=== PATIENT | male | born 1950 | race Caucasian/White ===

== ENCOUNTER 2019-08-11 18:58 | Observation (INO) ==
[2019-08-11 19:50] LABS: Basophils % 0.4 % (0.1-2.0); Eosinophils # 0.3 K/mm3 (0.0-0.4); Hematocrit 38.2 % (42.0-52.0); Hemoglobin 12.5 g/dL (14.1-18.0); Lymphocytes % 28.5 % (10-50); Mean Corpuscular HGB Conc 32.7 g/dL (31.8-35.4); Mean Corpuscular Volume 96.8 fl (80-94); Mean Platelet Volume 7.4 fl (7.4-10.4); Monocytes # 0.7 K/mm3 (0.1-1.0); Monocytes % 6.2 % (1.7-9.3); Neutrophils # 6.4 K/mm3 (1.8-7.8); Neutrophils % 61.9 % (37.0-80.0); Platelet Count 215 K/mm3 (142-424); Red Blood Count 3.95 M/mm3 (4.60-6.20); Red Cell Distribution Width 12.8 % (11.5-17.5); White Blood Count 10.4 K/mm3 (4.8-10.8)
[2019-08-11 20:04] LABS: Anion Gap 18.2 mEq/L (5-15); Blood Urea Nitrogen 43 mg/dL (7-18); C-Reactive Protein 0.2 mg/dL (0.0-0.9); Calcium 9.8 mg/dL (8.5-10.1); Carbon Dioxide 25 mmol/L (21.0-32.0); Chloride 102 mmol/L (98-107); Glucose 86 mg/dL (74-106); Sodium 141 mmol/L (136-145)
[2019-08-11 20:10] LABS: Bilirubin,Direct 0.1 mg/dL (0.0-0.2); Bilirubin,Indirect 0.1 mg/dL (0.0-0.9); Bilirubin,Total 0.2 mg/dL (0.2-1.0)
[2019-08-11 20:11] LABS: Albumin Level 4.4 gm/dL (3.4-5.0); Total Protein,Serum 8.4 gm/dL (6.4-8.2)
[2019-08-11 20:14] LABS: Erythrocyte Sedimentation Rate 43 mm/hr (0-20)
--- NOTE | 2019-08-11 20:42 | Emergency Department Note ---
ED Disposition Clinical Impression: MARGARET (acute kidney injury), HIV disease Heat exposure Qualifiers: Encounter type: initial encounter Qualified Code(s): T67.9XXA - Effect of heat and light, unspecified, initial encounter Disposition: Admitted as Observation Condition on Discharge: Good Referrals: Provider,Referral, [Primary Care Provider] - - Critical Care Critical Care Time: No Attestation: On 08/11/19, the high probability of a clinically significant, sudden or life threatening deterioration of the following system(s) required my full and direct attention, intervention and personal management. The time I documented below is in addition to time spent performing reported procedures but includes the following listed in this critical care notation. Medical Decision Making - Medical Records Medical records reviewed: Yes: I reviewed the patient's medical records. - [place] Inquiry Pt receiving controlled substance: No Vital Signs: 08/11/19 19:11 08/11/19 22:08 08/11/19 22:57 Temperature 97.6 F Temperature Source Oral Pulse Rate [Left Radial] 88 72 Pulse Rate [Orthostatic Lying Right Radial] 74 Pulse Rate [Orthostatic Sitting Right Radial] 76 Pulse Rate [Orthostatic Standing Right Radial] 83 Respiratory Rate 17 18 Blood Pressure [Orthostatic Lying Right Arm] 149/81 H Blood Pressure [Orthostatic Sitting Right Arm] 144/82 H Blood Pressure [Orthostatic Standing Right Arm] 157/87 H Blood Pressure [Right Arm] 91/62 L 132/75 Blood Pressure Mean [Right Arm] 71 94 Blood Pressure Source [Right Arm] Automatic Cuff Automatic Cuff Blood Pressure Position [Right Arm] Sitting Sitting 02 Sat by Pulse Oximetry 95 99 Oxygen Delivery Method Room Air Room Air - Lab Data Lab results reviewed: Yes: I reviewed the patient's lab results. Lab Results 08/11/19 19:37: WBC 10.4, RBC 3.95 L, Hgb 12.5 L, Hct 38.2 L, MCV 96.8 H, MCH 31.7 H, MCHC 32.7, RDW 12.8, Plt Count 215, MPV 7.4, Neut % (Auto) 61.9, Lymph % (Auto) 28.5, Angelina % (Auto) 6.2, Eos % (Auto) 3.0, Baso % (Auto) 0.4, Neut # (Auto) 6.4, Lymph # (Auto) 3.0, Angelina # (Auto) 0.7, Eos # (Auto) 0.3, Baso # (Auto) 0.0, ESR 43 H 08/11/19 19:37: Sodium 141, Potassium 4.2, Chloride 102, Carbon Dioxide 25, Anion Gap 18.2 H, BUN 43 H, Creatinine 3.82 H, Estimated Creat Clear 16, Estimated GFR 16 L*, Est GFR ( Amer) 19 L*, Glucose 86, Calcium 9.8, Troponin I < 0.02, C-Reactive Protein 0.2 08/11/19 19:37: Total Bilirubin 0.2, Direct Bilirubin 0.1, Indirect Bilirubin 0.1, AST 25, ALT 35, Alkaline Phosphatase 84, Total Protein 8.4 H, Albumin 4.4 Result diagrams: 08/11/19 19:37 08/11/19 19:37 Orders (Tests/Meds): ED MEDICATIONS Generic Name Dose Route Start Last Admin Trade Name Freq PRN Reason Stop Dose Admin Sodium Chloride 1,000 mls @ 999 mls/hr 08/11/19 20:45 08/11/19 20:44 Sod Chlor 0.9% 1000ml Bag IV 08/11/19 21:45 999 mls/hr .Q1H1M CARMEL Administration ORDERS Category Date Time Status CT head/brain wo con Stat Cat Scan 08/11/19 19:27 Taken UA [Urinalysis and Microscopic] Stat Lab 08/11/19 22:35 Ordered - CT Data CT Scan: Head Time Received: 20:[address] Reviewed: Yes: I have viewed the radiologist's interpretation Preliminary Findings: Abnormal (chronic changes ) - ECG Data Tracing #1 Normal Sinus Rhythm: Yes Ischemic changes: non-specific ST-T wave changes - Physician Consults Physician Consulted: sloan Reason -: Admission Dizzy HPI - General Chief Complaint: Dizziness Stated Complaint: Low Blood Pressure,dizzy Head Time Seen by Provider: 08/11/19 20:00 Mode of Arrival: Ambulatory Source of Information: Patient, Spouse, Medical Record Limitations: No Limitations Description of Symptoms (Recalled from ER Triage Doc. by RN): PT STATED HE HAS BEEN DIZZY AND WEAK ALL DAY AND WHEN HE TOOK HIS BLOOD PRESSURE AT HOME HIS MACHINE WAS READING SYSTOLIC NUMBERS IN THE 70S AND 80S AND HIS PULSE WAS READING IN THE 120S. PT STATED HE IS HIV POSITIVE. - History of Present Illness HPI Narrative: pt with hx of hiv and was in his baseline status and was out today and became over heated and felt dizzy but no loc or focal changes - pt with no speech or visual sx- he noted low bp at home and presented to ed - no chest pain or syncope -has hx of cri complaint: dizziness Onset (ago): day(s) Timing: gradual onset Description: lightheadedness History of similar episodes: No History of trauma: No Severity: moderate Associated symptoms: denies other symptoms - Related Data Home Medications Medication Instructions Recorded Confirmed Unobtainable 08/11/19 08/11/19 Allergies Allergy/AdvReac Type Severity Reaction Status Date / Time morphine Allergy Verified 08/11/19 20:35 INGREDIENT: NO KNOWN - NO Allergy Unknown Uncoded 11/18/17 15:26 KNOWN DRUG ALLERGY [facility] History - Hepatitis A Screen Drug use history?: No High risk sexual behaviors?: No History of sexually transmitted infection?: No Currently employed?: No Childcare worker?: No Do you have indoor plumbing?: Yes Do you have electricity?: Yes Attestation statement:: This patient has been screened for Hepatitis A risk factors. I have reviewed the patient's past medical history: Yes - Social History Educational Level: Completed High School Alcohol Intake: current Alcohol Intake Frequency:: a few times a week Occupational Status: retired ROS Obtained: Yes All systems reviewed & no additional complaints - Constitutional Constitutional: Denies fever(s) - Eyes Eyes: Denies change in vision - ENT Ears, Nose, Mouth, and Throat: Denies sore throat - Cardiovascular Cardiovascular: Denies chest pain - Respiratory Respiratory: No cough - Gastrointestinal Gastrointestingal: Denies: abdominal pain - Genitourinary Male Genitourinary: Denies hematuria - Musculoskeletal Musculoskeletal: Denies joint pain - Integumentary/Breasts Skin/Breast: Denies rash - Neurologic Neurologic: Reports as per HPI, Reports dizziness, Denies headache(s), Denies seizure-like activity Physical Exam - General General appearance: alert - Head Head exam: normocephalic - Eye Eye exam: Present: PERRL, EOMI. Absent: scleral icterus - ENT ENT exam: Present: mucous membranes dry - Neck Neck exam: Present: trachea midline - Respiratory Respiratory exam: Present: normal lung sounds bilaterally. Absent: respiratory distress - Cardiovascular Cardiovascular exam: Present: regular rate, systolic murmur, +S4 - Abdominal Exam Abdominal exam: Present: soft - Back Exam Back exam: Present: full ROM - Neurological Exam Neurological exam: Present: alert, oriented X3, CN II-XII intact - Psychiatric Psychiatric exam: Present: normal affect - Skin Skin exam: Absent: rash
[2019-08-11 23:27] LABS: Microscopic, Urine URINE MICROSCOPIC (MICROSCOPIC)
[2019-08-11 23:28] LABS: Appearance,Urine CLEAR (Clear); Bilirubin,Urine Negative (Negative); Blood, Urine Negative (Negative); Color,Urine YELLOW (Yellow); Glucose,Urine (UA) Negative (Negative); Ketones,Urine Negative (Negative); Leukocyte Esterase,Urine Negative (Negative); PH,Urine 5.5 (5.0-8.5); Protein,Urine TRACE (Negative); Specific Gravity, Urine >= 1.030 (1.005-1.030); Urobilinogen,Urine 0.2 EU/dl (0.2)
[2019-08-11 23:33] LABS: Bacteria,Urine Trace /lpf; Hyaline Casts,Urine Occasional #/lpf (0); Squamous Epithelial Cell,Urine Occasional #/hpf (0-5); WBC,Urine Occasional #/hpf (0-3)
[2019-08-12 06:21] LABS: Basophils % 0.4 % (0.1-2.0); Eosinophils # 0.3 K/mm3 (0.0-0.4); Eosinophils % 4.8 % (0.1-12.0); Hematocrit 33.3 % (42.0-52.0); Lymphocytes # 2.4 K/mm3 (0.7-4.5); Lymphocytes % 35.2 % (10-50); Mean Corpuscular HGB Conc 33.3 g/dL (31.8-35.4); Mean Corpuscular Volume 97.6 fl (80-94); Mean Platelet Volume 7.3 fl (7.4-10.4); Monocytes # 0.4 K/mm3 (0.1-1.0); Monocytes % 6.2 % (1.7-9.3); Neutrophils # 3.6 K/mm3 (1.8-7.8); Neutrophils % 53.5 % (37.0-80.0); Platelet Count 153 K/mm3 (142-424); Red Blood Count 3.41 M/mm3 (4.60-6.20); White Blood Count 6.7 K/mm3 (4.8-10.8)
[2019-08-12 07:05] LABS: Hemoglobin 11.2 g/dL (14.1-18.0)
[2019-08-12 07:06] LABS: Blood Urea Nitrogen 38 mg/dL (7-18); Carbon Dioxide 24 mmol/L (21.0-32.0); Chloride 107 mmol/L (98-107); Glucose 97 mg/dL (74-106); Sodium 141 mmol/L (136-145)
[2019-08-12 07:21] LABS: Calcium 8.6 mg/dL (8.5-10.1)
--- NOTE | 2019-08-12 07:42 | Pharmacy Consult Notes ---
[facility] Pharmacy VTE Monitoring - Patient Demographics Admission date: 08/12/19 Report Date: 08/12/19 Time: 07:41 Allergies/Adverse Reactions: Patient Allergies morphine Allergy (Verified 08/11/19 20:35) Height: 1.65 m Weight: 63.191 kg Patient Problems: Current Active Problems MARGARET (acute kidney injury) (Acute) Heat exposure (Acute) HIV disease (Acute) - VTE Risk Labs: VTE Related Lab Results Hgb 11.2 g/dL (14.1-18.0) L D 08/12/19 05:37 Hct 33.3 % (42.0-52.0) L 08/12/19 05:37 Plt Count 153 K/mm3 (142-424) D 08/12/19 05:37 BUN 38 mg/dL (7-18) H 08/12/19 05:37 Creatinine 2.96 mg/dL (0.70-1.30) H D 08/12/19 05:37 Estimated Creat Clear 21 mL/min (50-200) 08/12/19 05:37 Was VTE Risk Assessment Performed: Yes VTE Score: 3 VTE Risk Level: Low Risk Clinical Trial Participant: No - Prophylaxis VTE Prophylaxis Ordered?: Yes Types of VTE Prophylaxis: TEDS Knee High
--- NOTE | 2019-08-12 11:15 | H&P/Discharge Summary ---
General - General Admission date:: 08/12/19 Discharge date: 08/12/19 *Admission Date: 08/12/19 *Chief complaint: weakness, dizzy, headache *History of present illness: Mr. Rodriguez is a 69-year-old male with a history of HIV, stage III kidney disease, hypertension, diabetes, and hyperlipidemia. 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 He went inside and took his blood pressure and it was 68/48 therefore he was transported to the emergency room by his . His sed rate was elevated and his renal functions were increased. His magnesium was also slightly high. He was admitted and started on IV fluids. This a.m. he is feeling much better. He denies any headache or dizziness and his blood pressure has stabilized. He tolerated breakfast and was anxious to go home. He is unsure of his medications and states his will bring them up when she gets off work. [facility] History I have reviewed the patient's past medical history: Yes Medical History: Reports:: Diabetes Mellitus Type 2, Hyperlipidemia, Hypertension, Renal Disease, Renal Insufficiency Denies:: Cancer, Diabetes Mellitus Type 1, Internal Pacemaker, MRSA *Have you ever received a pneumonia vaccine?: Yes *Have you received a flu vaccine this season?: Yes (last flu season) Other Medical History: Reports: HIV Other Surgeries: Yes: Other (Hemorrhoidectomy). No: Pacemaker Amputation: No Fractures: No - *Social History Educational Level: Attended High School Smoking Status: Former smoker Tobacco Type: cigarettes # Packs/Day (cigarettes): 1 #Yrs smoked (if former smoker): 35 Alcohol Intake: current Alcohol Intake Frequency:: a few times a week Substance Use Type: marijuana Last Used Substance: days (ago) *Occupational Status:: retired *Travel in the last 8 weeks: None Family Hx:: Coronary Artery Disease, Diabetes, Hypertension, Stroke Review of Systems - Constitutional Reports weakness, Denies chills, Denies fever(s) - Eyes Denies blurry vision, Denies double vision - ENT Reports dizziness, Denies nasal congestion, Denies sore throat - *Cardiovascular Denies chest pain, Denies shortness of breath, Denies rapid, pounding, or irregular heartbeat - *Respiratory Denies cough, Denies shortness of breath - *Gastrointestinal Denies abdominal pain, Denies loose stools, Denies nausea, Denies vomiting - *Genitourinary Denies difficulty urinating, Denies painful urination - *Musculoskeletal Denies joint pain, Denies muscle weakness - *Neurologic Reports dizziness, Reports weakness, Denies headache(s), Denies seizure-like activity Exam Vital signs and Labs for Last 24 Hours: Temp Pulse Resp BP Pulse Ox 98.2 F 51 L 18 153/79 H 99 08/12/19 08:00 08/12/19 08:00 08/12/19 08:00 08/12/19 08:00 08/12/19 08:00 Laboratory Results - last 24 hr 08/11/19 19:37: WBC 10.4, RBC 3.95 L, Hgb 12.5 L, Hct 38.2 L, MCV 96.8 H, MCH 31.7 H, MCHC 32.7, RDW 12.8, Plt Count 215, MPV 7.4, Neut % (Auto) 61.9, Lymph % (Auto) 28.5, [place] % (Auto) 6.2, Eos % (Auto) 3.0, Baso % (Auto) 0.4, Neut # (Auto) 6.4, Lymph # (Auto) 3.0, [place] # (Auto) 0.7, Eos # (Auto) 0.3, Baso # (Auto) 0.0, ESR 43 H 08/11/19 19:37: Sodium 141, Potassium 4.2, Chloride 102, Carbon Dioxide 25, Anion Gap 18.2 H, BUN 43 H, Creatinine 3.82 H, Estimated Creat Clear 16, Estimated GFR 16 L*, Est GFR ( Amer) 19 L*, Glucose 86, Calcium 9.8, Troponin I < 0.02, C-Reactive Protein 0.2 08/11/19 19:37: Total Bilirubin 0.2, Direct Bilirubin 0.1, Indirect Bilirubin 0.1, AST 25, ALT 35, Alkaline Phosphatase 84, Total Protein 8.4 H, Albumin 4.4 08/11/19 23:00: Urine Color Yellow, Urine Appearance Clear, Urine pH 5.5, Ur Specific [place] >= 1.030, Urine Protein Trace, Urine Glucose (UA) Negative, Urine Ketones Negative, Urine Blood Negative, Urine Nitrate Negative, Urine Bilirubin Negative, Urine Urobilinogen 0.2, Ur Leukocyte Esterase Negative, Urine WBC Occasional, Ur Squamous Epith Cells Occasional, Urine Bacteria Trace, Hyaline Casts Occasional 08/12/19 02:25: Troponin I < 0.02 08/12/19 05:37: WBC 6.7 D, RBC 3.41 L, Hgb 11.2 L D, Hct 33.3 L, MCV 97.6 H, MCH 32.5 H, MCHC 33.3, RDW 13.0, Plt Count 153 D, MPV 7.3 L, Neut % (Auto) 53.5, Lymph % (Auto) 35.2, [place] % (Auto) 6.2, Eos % (Auto) 4.8, Baso % (Auto) 0.4, Neut # (Auto) 3.6, Lymph # (Auto) 2.4, [place] # (Auto) 0.4, Eos # (Auto) 0.3, Baso # (Auto) 0.0 08/12/19 05:37: Sodium 141, Potassium 4.0, Chloride 107, Carbon Dioxide 24, Anion Gap 14.0, BUN 38 H, Creatinine 2.96 H D, Estimated Creat Clear 21, Estima [place] GFR 21 L, Est GFR ( Amer) 26 L D, Glucose 97, Calcium 8.6 D, Troponin I < 0.02 08/12/19 05:37: Magnesium 2.3 H I & O for Last 24 hours: Intake & Output 08/09/19 08/10/19 08/11/19 08/12/19 11:59 11:59 11:59 11:59 Intake Total 1570 / 1570 Balance 1570 / 1570 Weight 139 lb 5 oz - Constitutional no acute distress - *Routine HEENT Exam Head: Present: normocephalic Eye: Present: EOMI, PERRL ENT: Present: mucous membranes moist - *Routine Neck Exam Present: supple. Absent: lymphadenopathy - *Routine Respiratory Exam Present: CTA bilaterally - *Routine Cardiovascular Exam Present: RRR - *Routine Abdominal Exam Present: soft, normoactive bowel sounds. Absent: tenderness - *Routine Extremities Exam Absent: cyanosis, clubbing, edema - *Routine Skin Exam Present: warm. Absent: rash - *Routine Neurological Exam Present: alert, oriented X3 - Detailed Eye Exam Eyelids: Left normal inspection Hospital Course Hospital Course: The patient's renal function improved with hydration and he began feeling much better. His dizziness and weakness resolved and he was able to tolerate a diet. He was stable to be discharged home. Results Labs on day of discharge: Labs from last 24 hours 08/12/19 08/12/19 08/12/19 05:37 05:37 05:37 WBC 6.7 D RBC 3.41 L Hgb 11.2 L D Hct 33.3 L MCV 97.6 H MCH 32.5 H MCHC 33.3 RDW 13.0 Plt Count 153 D MPV 7.3 L Neut % (Auto) 53.5 Lymph % (Auto) 35.2 [place] % (Auto) 6.2 Eos % (Auto) 4.8 Baso % (Auto) 0.4 Neut # (Auto) 3.6 Lymph # (Auto) 2.4 [place] # (Auto) 0.4 Eos # (Auto) 0.3 Baso # (Auto) 0.0 ESR Sodium 141 Potassium 4.0 Chloride 107 Carbon Dioxide 24 Anion Gap 14.0 BUN 38 H Creatinine 2.96 H D Estimated Creat Clear 21 Estimated GFR 21 L Est GFR ( Amer) 26 L D Glucose 97 Calcium 8.6 D Magnesium 2.3 H Total Bilirubin Direct Bilirubin Indirect Bilirubin AST ALT Alkaline Phosphatase Troponin I < 0.02 C-Reactive Protein Total Protein Albumin Urine Color Urine Appearance Urine pH Ur Specific [place] Urine Protein Urine Glucose (UA) Urine Ketones Urine Blood Urine Nitrate Urine Bilirubin Urine Urobilinogen Ur Leukocyte Esterase Urine WBC Ur Squamous Epith Cells Urine Bacteria Hyaline Casts 08/12/19 08/11/19 08/11/19 02:25 23:00 19:37 WBC RBC Hgb Hct MCV MCH MCHC RDW Plt Count MPV Neut % (Auto) Lymph % (Auto) [place] % (Auto) Eos % (Auto) Baso % (Auto) Neut # (Auto) Lymph # (Auto) [place] # (Auto) Eos # (Auto) Baso # (Auto) ESR Sodium Potassium Chloride Carbon Dioxide Anion Gap BUN Creatinine Estimated Creat Clear Estimated GFR Est GFR ( Amer) Glucose Calcium Magnesium Total Bilirubin 0.2 Direct Bilirubin 0.1 Indirect Bilirubin 0.1 AST 25 ALT 35 Alkaline Phosphatase 84 Troponin I < 0.02 C-Reactive Protein Total Protein 8.4 H Albumin 4.4 Urine Color Yellow Urine Appearance Clear Urine pH 5.5 Ur Specific [place] >= 1.030 Urine Protein Trace Urine Glucose (UA) Negative Urine Ketones Negative Urine Blood Negative Urine Nitrate Negative Urine Bilirubin Negative Urine Urobilinogen 0.2 Ur Leukocyte Esterase Negative Urine WBC Occasional Ur Squamous Epith Cells Occasional Urine Bacteria Trace Hyaline Casts Occasional 08/11/19 08/11/19 19:37 19:37 WBC 10.4 RBC 3.95 L Hgb 12.5 L Hct 38.2 L MCV 96.8 H MCH 31.7 H MCHC 32.7 RDW 12.8 Plt Count 215 MPV 7.4 Neut % (Auto) 61.9 Lymph % (Auto) 28.5 [place] % (Auto) 6.2 Eos % (Auto) 3.0 Baso % (Auto) 0.4 Neut # (Auto) 6.4 Lymph # (Auto) 3.0 [place] # (Auto) 0.7 Eos # (Auto) 0.3 Baso # (Auto) 0.0 ESR 43 H Sodium 141 Potassium 4.2 Chloride 102 Carbon Dioxide 25 Anion Gap 18.2 H BUN 43 H Creatinine 3.82 H Estimated Creat Clear 16 Estimated GFR 16 L* Est GFR ( Amer) 19 L* Glucose 86 Calcium 9.8 Magnesium Total Bilirubin Direct Bilirubin Indirect Bilirubin AST ALT Alkaline Phosphatase Troponin I < 0.02 C-Reactive Protein 0.2 Total Protein Albumin Urine Color Urine Appearance Urine pH Ur Specific [place] Urine Protein Urine Glucose (UA) Urine Ketones Urine Blood Urine Nitrate Urine Bilirubin Urine Urobilinogen Ur Leukocyte Esterase Urine WBC Ur Squamous Epith Cells Urine Bacteria Hyaline Casts DS: Diagnosis - Discharge Diagnosis (1) MARGARET (acute kidney injury) Status: Acute (2) Heat exposure Status: Acute (3) Hyperlipidemia Status: Chronic (4) Hypertension Status: Chronic (5) HIV disease Status: Chronic (6) Stage 3 chronic kidney disease Status: Chronic Discharge Plan - Patient Discharge Instructions ACTIVITY: Continue current activity DIET: renal Patient Instructions: DI for Kidney Failure - Follow up Plan Follow up with: Melanie Ambrocio MD [Staff Physician] - Unknown provider or service follow up:: 08/12/19 08:57 Dr. 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
--- NOTE | 2019-08-12 13:12 | Electrocardiograph Report ---
APPROVED REPORT Exam: Resting ECG HR:73 bpm ECG Measurements Heart Rate 73 AXES MI 170 P 76 QRSd 78 QRS 62 QT 372 T65 QTc 409 <Conclusion> Normal sinus rhythm Incomplete RBBB Otherwise Normal EKG Electronically signed by : Ajith Stahl, 08/12/2019 13:12:20
== END 2019-08-12 10:27 | disposition home or self-care (01) ==
LOC: 2ND 18:58 → ER 18:58 → 2ND 08-12 00:05
PROVIDERS: ADMIT Emergency Medicine; ATTEND Emergency Medicine
CPT/HCPCS: 36415; 70450; 71020; 71046; 80048; 80076; 81001; 83735; 84484; 85025; 85651; 86140; 93005; 96365; 96366; 99282; G0378

== ENCOUNTER 2019-10-19 22:22 | Observation (INO) ==
[2019-10-19 23:06] LABS: Basophils % 0.5 % (0.1-2.0); Eosinophils # 0.2 K/mm3 (0.0-0.4); Eosinophils % 2.4 % (0.1-12.0); Hematocrit 36.2 % (42.0-52.0); Lymphocytes # 1.5 K/mm3 (0.7-4.5); Lymphocytes % 20.2 % (10-50); Mean Corpuscular HGB Conc 33.1 g/dL (31.8-35.4); Mean Corpuscular Volume 98.9 fl (80-94); Monocytes # 0.4 K/mm3 (0.1-1.0); Monocytes % 5.7 % (1.7-9.3); Neutrophils # 5.4 K/mm3 (1.8-7.8); Neutrophils % 71.1 % (37.0-80.0); Platelet Count 157 K/mm3 (142-424); Red Blood Count 3.66 M/mm3 (4.60-6.20); Red Cell Distribution Width 12.6 % (11.5-17.5); White Blood Count 7.5 K/mm3 (4.8-10.8)
[2019-10-19 23:07] LABS: Anion Gap 12.1 mEq/L (5-15); Calcium 8.4 mg/dL (8.5-10.1)
--- NOTE | 2019-10-20 00:35 | Emergency Department Note ---
ED Disposition Clinical Impression: Stage 3 chronic kidney disease Chest pain Qualifiers: Chest pain type: unspecified Qualified Code(s): R07.9 - Chest pain, unspecified Syncope Qualifiers: Syncope type: unspecified Qualified Code(s): R55 - Syncope and collapse Disposition: Left Against Medical Advice Condition on Discharge: Good Instructions: DI for Chest Pain Additional Instructions: call pcp in am and recheck if needed Referrals: Provider,Referral, MD [Primary Care Provider] - - Critical Care Critical Care Time: No Attestation: On 10/19/19, the high probability of a clinically significant, sudden or life threatening deterioration of the following system(s) required my full and direct attention, intervention and personal management. The time I documented below is in addition to time spent performing reported procedures but includes the following listed in this critical care notation. Medical Decision Making - Medical Records Medical records reviewed: Yes: I reviewed the patient's medical records. - [place] Inquiry Pt receiving controlled substance: No Vital Signs: 10/19/19 22:23 Temperature 97.7 F Temperature Source Oral Pulse Rate [Right] 89 Respiratory Rate 16 Blood Pressure [Right Arm] 133/80 Blood Pressure Mean [Right Arm] 97 Blood Pressure Source [Right Arm] Automatic Cuff Blood Pressure Position [Right Arm] Supine 02 Sat by Pulse Oximetry 94 L Oxygen Delivery Method Room Air - Lab Data Lab results reviewed: Yes: I reviewed the patient's lab results. Lab Results 10/19/19 22:25: Troponin I < 0.02 10/19/19 22:25: WBC 7.5, RBC 3.66 L, Hgb 12.0 L, Hct 36.2 L, MCV 98.9 H, MCH 32.7 H, MCHC 33.1, RDW 12.6, Plt Count 157, MPV 8.0, Neut % (Auto) 71.1, Lymph % (Auto) 20.2, [place] % (Auto) 5.7, Eos % (Auto) 2.4, Baso % (Auto) 0.5, Neut # (Auto) 5.4, Lymph # (Auto) 1.5, [place] # (Auto) 0.4, Eos # (Auto) 0.2, Baso # (Auto) 0.0 10/19/19 22:25: Sodium 138, Potassium 4.1, Chloride 103, Carbon Dioxide 27, Anion Gap 12.1, BUN 22 H, Creatinine 2.05 H, Estimated Creat Clear 30, Estimated GFR 32 L, Est GFR ( Amer) 39 L, Glucose 129 H, Calcium 8.4 L Result diagrams: 10/19/19 22:25 10/19/19 22:25 Orders (Tests/Meds): ORDERS Category Date Time Status XR chest portable Stat Exams 10/19/19 22:57 Taken - Radiology Data #1 Image(s): Chest Image Reviewed: Yes I reviewed the patient's radiology image Preliminary Findings: Normal/NAD - ECG Data Tracing #1 Normal Sinus Rhythm: Yes Ischemic changes: non-specific ST-T wave changes Chest Pain HPI - General Chief Complaint: Chest Pain Stated Complaint: Chest Pain Time Seen by Provider: 10/20/19 00:00 Mode of Arrival: EMS Source of Information: Patient, EMS, Medical Record Limitations: No Limitations Description of Symptoms (Recalled from ER Triage Doc. by RN): Chest pain 1.5 hours ago 324 ASA and 1 Niro given by EMS - History of Present Illness HPI narrative: pt with acute episode of syncope with diaphoresis and nausea and Ant chest pain - no known ht disease - reported neg stress test at about 2 yr ago - MD complaint: chest pain indicative of cardiac Onset (ago): hour(s) Duration: now resolved Activity at onset: during rest Pain location: left chest Severity: moderate Quality: tightness Associated symptoms: nausea Risk Factors for CAD: Family Hx of CAD Treatments prior to or on arrival for Cardiac Chest Pain: aspirin - EM Score for Non-Stemi Age of Patient: 60-69 years old Heart Rate: 70-89 bpm Systolic Blood Pressure: 120-139 mmhg Serum Creatinine: 2.00-3.99 mg/dl CHF [place] Class: I-No CHF Other Risk Factors: None Non-Stemi Risk Score: 122 - Related Data Prior Cardiac Testing/Procedures: Stress Test Home Medications Medication Instructions Recorded Confirmed Abacavir Sulfate [Abacavir] 600 mg PO DAILY 10/19/19 10/19/19 Atorvastatin Calcium [Atorvastatin 20 mg PO HS 10/19/19 10/19/19 20mg Tab] Dolutegravir Sodium [Tivicay] 50 mg PO DAILY 10/19/19 10/19/19 Escitalopram Oxalate 20 mg PO DAILY 10/19/19 10/19/19 Lisinopril [Lisinopril 10mg Tab] 10 mg PO DAILY 10/19/19 10/19/19 Multivit-Min/FA/Lycopen/Lutein 1 each PO DAILY 10/19/19 10/19/19 [Men 50 Plus Multivitamin Tab] Nortriptyline HCl 25 mg PO HS 10/19/19 10/19/19 Tamsulosin HCl [Flomax 0.4mg 0.4 mg PO HS 10/19/19 10/19/19 capsule] buPROPion HCl [Bupropion Xl] 150 mg PO DAILY 10/19/19 10/19/19 lamiVUDine [Lamivudine] 150 mg PO DAILY 10/19/19 10/19/19 Allergies Allergy/AdvReac Type Severity Reaction Status Date / Time morphine Allergy Verified 08/11/19 20:35 [facility] History - Hepatitis A Screen Drug use history?: No High risk sexual behaviors?: No History of sexually transmitted infection?: No Currently employed?: No Childcare worker?: No Do you have indoor plumbing?: Yes Do you have electricity?: Yes Attestation statement:: This patient has been screened for Hepatitis A risk factors. I have reviewed the patient's past medical history: Yes Medical History: Reports:: Diabetes Mellitus Type 2, Hyperlipidemia, Hypertension, Renal Disease, Renal Insufficiency Denies:: Cancer, Diabetes Mellitus Type 1, Internal Pacemaker, MRSA Other Medical History: Reports: HIV Other Surgeries: Yes: Other (Hemorrhoidectomy). No: Pacemaker Amputation: No Fractures: No - Social History Smoking Status: Former smoker Tobacco Type: cigarettes # Packs/Day (cigarettes): 1 #Yrs smoked (if former smoker): 35 Alcohol Intake: current Alcohol Intake Frequency:: a few times a week Substance Use Type: marijuana Occupational Status: retired Family Hx:: Coronary Artery Disease, Diabetes, Hypertension, Stroke ROS Obtained: Yes All systems reviewed & no additional complaints - Constitutional Constitutional: Denies fever(s) - Eyes Eyes: Denies change in vision - ENT Ears, Nose, Mouth, and Throat: Denies sore throat - Cardiovascular Cardiovascular: Reports as per HPI, Reports chest pain, Denies dyspnea, Reports lightheadedness - Respiratory Respiratory: No cough - Gastrointestinal Gastrointestingal: Denies: abdominal pain - Genitourinary Female Genitourinary: Denies hematuria - Musculoskeletal Musculoskeletal: Denies joint pain, Denies joint swelling - Integumentary/Breasts Skin/Breast: Denies rash - Neurologic Neurologic: Denies focal weakness, Denies seizure-like activity Physical Exam - General General appearance: alert - Head Head exam: normocephalic - Eye Eye exam: Present: PERRL, EOMI. Absent: scleral icterus - ENT ENT exam: Present: mucous membranes dry - Neck Neck exam: Present: trachea midline - Respiratory Respiratory exam: Present: normal lung sounds bilaterally. Absent: respiratory distress - Cardiovascular Cardiovascular exam: Present: regular rate, systolic murmur. Absent: rubs, gallop - Abdominal Exam Abdominal exam: Present: soft - Extremities Exam Extremities exam: Present: full ROM - Neurological Exam Neurological exam: Present: alert, oriented X3, CN II-XII intact - Psychiatric Psychiatric exam: Present: normal affect - Skin Skin exam: Absent: rash
[2019-10-20 01:29] LABS: Albumin Level 3.8 gm/dL (3.4-5.0); Bilirubin,Direct 0.1 mg/dL (0.0-0.2); Bilirubin,Indirect 0.1 mg/dL (0.0-0.9); Bilirubin,Total 0.2 mg/dL (0.2-1.0); Total Protein,Serum 7.4 gm/dL (6.4-8.2)
--- NOTE | 2019-10-20 07:20 | Pharmacy Consult Notes ---
[facility] Pharmacy VTE Monitoring - Patient Demographics Admission date: 10/19/19 Report Date: 10/20/19 Time: 07:20 Allergies/Adverse Reactions: Patient Allergies morphine Allergy (Verified 08/11/19 20:35) Height: 1.65 m Weight: 60.073 kg Patient Problems: Current Active Problems Stage 3 chronic kidney disease (Chronic) Chest pain (Acute) Syncope (Acute) - VTE Risk Labs: VTE Related Lab Results Hgb 12.0 g/dL (14.1-18.0) L 10/19/19 22:25 Hct 36.2 % (42.0-52.0) L 10/19/19 22:25 Plt Count 157 K/mm3 (142-424) 10/19/19 22:25 BUN 22 mg/dL (7-18) H 10/19/19 22:25 Creatinine 2.05 mg/dL (0.70-1.30) H 10/19/19 22:25 Estimated Creat Clear 30 mL/min (50-200) 10/19/19 22:25 Was VTE Risk Assessment Performed: Yes VTE Score: 5 VTE Risk Level: Low Risk Clinical Trial Participant: No - Prophylaxis VTE Prophylaxis Ordered?: Yes Types of VTE Prophylaxis: TEDS Knee High
[2019-10-20 07:41] LABS: Basophils % 0.5 % (0.1-2.0); Eosinophils # 0.2 K/mm3 (0.0-0.4); Eosinophils % 3.5 % (0.1-12.0); Hematocrit 33.3 % (42.0-52.0); Hemoglobin 11.1 g/dL (14.1-18.0); Lymphocytes # 2.3 K/mm3 (0.7-4.5); Lymphocytes % 34.4 % (10-50); Mean Corpuscular HGB Conc 33.4 g/dL (31.8-35.4); Mean Corpuscular Volume 96.9 fl (80-94); Monocytes # 0.5 K/mm3 (0.1-1.0); Monocytes % 6.7 % (1.7-9.3); Neutrophils # 3.7 K/mm3 (1.8-7.8); Neutrophils % 54.9 % (37.0-80.0); Platelet Count 142 K/mm3 (142-424); Red Blood Count 3.44 M/mm3 (4.60-6.20); Red Cell Distribution Width 12.6 % (11.5-17.5); White Blood Count 6.8 K/mm3 (4.8-10.8)
[2019-10-20 07:47] LABS: Anion Gap 7.9 mEq/L (5-15); Calcium 8.4 mg/dL (8.5-10.1)
[2019-10-20 07:56] LABS: Chol/HDL Ratio 2.8 (1-3.5); Cholesterol 135 mg/dL (140-200); HDL Cholesterol 49 mg/dL (27-67); LDL Cholesterol 71 mg/dL (0-130); Triglycerides 73 mg/dL (30-200); VLDL Cholesterol 15 mg/dL (0-40)
--- NOTE | 2019-10-20 08:29 | History & Physical Report ---
*Admission Date: 10/19/19 <Michela Holland 10/20/19 08:35> *Chief complaint: Chest pain; near syncope <Michela Holland 10/20/19 08:35> *History of present illness: Mr. Rodriguez is a 69-year-old male with a history of HIV diagnosed 9 years ago, chronic kidney insufficiency, GERD, hypertension, hyperlipidemia and depression who presented to [facility] emergency room after experiencing a near syncopal episode at home while standing in his garage. He states he was d rinking a beer and smoking a cigarette when this occurred. He had been having intermittent chest discomfort lasting 3 to 4 minutes since his dinner and then experienced severe midsternal chest discomfort associated with nausea, shortness of breath, and diaphoresis. He states he nearly passed out. His son was there and caught him and kept him awake until the ambulance arrived. He did receive a nitroglycerin which relieved the chest discomfort. He denies having previous chest discomfort. He receives his medical care at [facility]. He did have a negative stress test 2 years ago. He was evaluated in the emergency room. Troponin I's have been negative x2. He was admitted with a cardiology consult. At the time of this exam patient is comfortable. He denies shortness of breath. He arrived in the room about 4 AM and has been awake. <Michela Holland 10/20/19 08:44> [facility] History Medical History: Reports:: Deep Vein Thrombosis (Has a filter in place), Depression, Gastroesophageal Reflux Disease(GERD), Hyperlipidemia, Hypertension, Renal Disease, Renal Insufficiency Denies:: Cancer, Coronary Artery Disease, Diabetes Mellitus Type 1, Diabetes Mellitus Type 2, Internal Pacemaker, MRSA <Michela Holland 10/20/19 08:35> *Have you ever received a pneumonia vaccine?: Yes <Michela Holland 10/20/19 08:35> *Have you received a flu vaccine this season?: Yes <Michela Holland 10/20/19 08:35> Other Medical History: Reports: Arthritis, Acquired Immunodeficiency Syndrome (AIDS), HIV <Michela Holland 10/20/19 08:35> Other Surgeries: Yes: Colonoscopy, Other (Hemorrhoidectomy). No: Pacemaker <HollandMichela 10/20/19 08:35> Amputation: No <SkylerMichela Mckeon 10/20/19 08:35> Fractures: No <SkylerMichela 10/20/19 08:35> - *Social History Educational Level: Attended High School <HollandMichela Mckeon 10/20/19 08:35> Smoking Status: Former smoker <SkylerMichela 10/20/19 08:35> Tobacco Type: cigarettes <HollandMichela 10/20/19 08:35> # Packs/Day (cigarettes): 1 <SkylerMichela 10/20/19 08:35> #Yrs smoked (if former smoker): 15 <SkylerMichela 10/20/19 08:35> Smoking End Date: 35 YEARS AGO <Holland,Michela 10/20/19 08:35> Alcohol Intake: former <SkylerMichela 10/20/19 08:35> Alcohol Intake Frequency:: a few times a month <SkylerMichela 10/20/19 08:35> Substance Use Type: marijuana <Holland,Michela 10/20/19 08:35> Last Used Substance: days (ago) <HollandMichela 10/20/19 08:35> *Occupational Status:: retired <HollandMichela 10/20/19 08:35> Housing: house <SkylerMichela 10/20/19 08:35> Household Members: spouse, children <Holland,Michela 10/20/19 08:35> *Travel in the last 8 weeks: None <Holland,Michela Mckeon 10/20/19 08:35> Family Hx:: Diabetes, Stroke <Holland,Michela 10/20/19 08:35> Review of Systems - Constitutional Denies headache(s), Denies weakness <Michela Holland 10/20/19 08:35> - Eyes Denies change in vision <Michela Holland 10/20/19 08:35> - ENT Denies ear pain, Denies headache(s), Denies sore throat <Michela Holland 10/20/19 08:35> - *Cardiovascular Reports chest pain, Reports shortness of breath, Denies generalized swelling, Denies irregular heart rhythm <Michela Holland - 10/20/19 08:35> - *Respiratory Reports shortness of breath, Denies chest congestion, Denies cough <Michela Holland - 10/20/19 08:35> - *Gastrointestinal Reports heartburn, Reports heartburn, Reports nausea (When he had chest pain), Denies abdominal pain, Denies change in bowel habits, Denies coffee ground vomit, Denies constipation, Denies vomiting blood, Denies black, tarry stools, Denies vomiting <Michela Holland - 10/20/19 08:35> - *Genitourinary Denies difficulty urinating (Does take Flomax) <Michela Holland 10/20/19 08: 35> - *Musculoskeletal Denies abnormal walking, Denies joint pain <Michela Holland 10/20/19 08:35> - *Neurologic Denies abnormal walking, Denies seizure-like activity, Denies localized weakness, Denies seizure-like activity <Michela Holland 10/20/19 08:35> Meds Home Medications Medication Instructions Recorded Confirmed Type Abacavir Sulfate [Abacavir] 600 mg PO DAILY 10/19/19 10/19/19 History Atorvastatin Calcium [Atorvastatin 20 mg PO HS 10/19/19 10/19/19 History 20mg Tab] Dolutegravir Sodium [Tivicay] 50 mg PO DAILY 10/19/19 10/19/19 History Escitalopram Oxalate 20 mg PO DAILY 10/19/19 10/19/19 History Lisinopril [Lisinopril 10mg Tab] 10 mg PO DAILY 10/19/19 10/19/19 History Multivit-Min/FA/Lycopen/Lutein 1 each PO DAILY 10/19/19 10/19/19 History [Men 50 Plus Multivitamin Tab] Nortriptyline HCl 25 mg PO HS 10/19/19 10/19/19 History Tamsulosin HCl [Flomax 0.4mg 0.4 mg PO HS 10/19/19 10/19/19 History capsule] buPROPion HCl [Bupropion Xl] 150 mg PO DAILY 10/19/19 10/19/19 History lamiVUDine [Lamivudine] 150 mg PO DAILY 10/19/19 10/19/19 History <Paxton Ma - 10/20/19 09:28> Allergies Allergy/AdvReac Type Severity Reaction Status Date / Time morphine Allergy Verified 08/11/19 20:35 <Paxton Ma - 10/20/19 09:28> Exam Vital signs and Labs for Last 24 Hours: Temp Pulse Resp BP Pulse Ox 98.3 F 67 16 141/86 H 100 10/20/19 08:00 10/20/19 08:00 10/20/19 08:00 10/20/19 08:00 10/20/19 08:00 Laboratory Results - last 24 hr 10/19/19 22:25: Troponin I < 0.02 10/19/19 22:25: WBC 7.5, RBC 3.66 L, Hgb 12.0 L, Hct 36.2 L, MCV 98.9 H, MCH 32.7 H, MCHC 33.1, RDW 12.6, Plt Count 157, MPV 8.0, Neut % (Auto) 71.1, Lymph % (Auto) 20.2, [place] % (Auto) 5.7, Eos % (Auto) 2.4, Baso % (Auto) 0.5, Neut # (Auto) 5.4, Lymph # (Auto) 1.5, [place] # (Auto) 0.4, Eos # (Auto) 0.2, Baso # (Auto) 0.0 10/19/19 22:25: Sodium 138, Potassium 4.1, Chloride 103, Carbon Dioxide 27, Anion Gap 12.1, BUN 22 H, Creatinine 2.05 H, Estimated Creat Clear 30, Estimated GFR 32 L, Est GFR ( Amer) 39 L, Glucose 129 H, Calcium 8.4 L 10/20/19 00:00: Total Bilirubin 0.2, Direct Bilirubin 0.1, Indirect Bilirubin 0.1, AST 19, ALT 19, Alkaline Phosphatase 85, Total Protein 7.4, Albumin 3.8 10/20/19 07:28: WBC 6.8, RBC 3.44 L, Hgb 11.1 L, Hct 33.3 L, MCV 96.9 H, MCH 32.4 H, MCHC 33.4, RDW 12.6, Plt Count 142, MPV 8.0, Neut % (Auto) 54.9, Lymph % (Auto) 34.4, [place] % (Auto) 6.7, Eos % (Auto) 3.5, Baso % (Auto) 0.5, Neut # (Auto) 3.7, Lymph # (Auto) 2.3, [place] # (Auto) 0.5, Eos # (Auto) 0.2, Baso # (Auto) 0.0 10/20/19 07:28: Sodium 137, Potassium 3.9, Chloride 105, Carbon Dioxide 28, Anion Gap 7.9, BUN 21 H, Creatinine 1.81 H, Estimated Creat Clear 33, Estimated GFR 37 L, Est GFR ( Amer) 45 L, Glucose 92 D, Calcium 8.4 L 10/20/19 07:28: Magnesium 2.0, Troponin I < 0.02, Triglycerides 73, Cholesterol 135 L, LDL Cholesterol 71, VLDL Cholesterol 15, HDL Cholesterol 49, Cholesterol/HDL Ratio 2.8 <FrancescaPaxton gautam - 10/20/19 09:28> Temp Pulse Resp BP Pulse Ox 97.5 F L 70 18 140/77 95 10/20/19 03:33 10/20/19 04:36 10/20/19 03:33 10/20/19 03:33 10/20/19 05:30 Laboratory Results - last 24 hr 10/19/19 22:25: Troponin I < 0.02 10/19/19 22:25: WBC 7.5, RBC 3.66 L, Hgb 12.0 L, Hct 36.2 L, MCV 98.9 H, MCH 32.7 H, MCHC 33.1, RDW 12.6, Plt Count 157, MPV 8.0, Neut % (Auto) 71.1, Lymph % (Auto) 20.2, [place] % (Auto) 5.7, Eos % (Auto) 2.4, Baso % (Auto) 0.5, Neut # (Auto) 5.4, Lymph # (Auto) 1.5, [place] # (Auto) 0.4, Eos # (Auto) 0.2, Baso # (Auto) 0.0 10/19/19 22:25: Sodium 138, Potassium 4.1, Chloride 103, Carbon Dioxide 27, Anion Gap 12.1, BUN 22 H, Creatinine 2.05 H, Estimated Creat Clear 30, Estimated GFR 32 L, Est GFR ( Amer) 39 L, Glucose 129 H, Calcium 8.4 L 10/20/19 00:00: Total Bilirubin 0.2, Direct Bilirubin 0.1, Indirect Bilirubin 0.1, AST 19, ALT 19, Alkaline Phosphatase 85, Total Protein 7.4, Albumin 3.8 10/20/19 07:28: WBC 6.8, RBC 3.44 L, Hgb 11.1 L, Hct 33.3 L, MCV 96.9 H, MCH 32.4 H, MCHC 33.4, RDW 12.6, Plt Count 142, MPV 8.0, Neut % (Auto) 54.9, Lymph % (Auto) 34.4, [place] % (Auto) 6.7, Eos % (Auto) 3.5, Baso % (Auto) 0.5, Neut # (Auto) 3.7, Lymph # (Auto) 2.3, [place] # (Auto) 0.5, Eos # (Auto) 0.2, Baso # (Auto) 0.0 10/20/19 07:28: Sodium 137, Potassium 3.9, Chloride 105, Carbon Dioxide 28, Anion Gap 7.9, BUN 21 H, Creatinine 1.81 H, Estimated Creat Clear 33, Estimated GFR 37 L, Est GFR ( Amer) 45 L, Glucose 92 D, Calcium 8.4 L 10/20/19 07:28: Magnesium 2.0, Troponin I < 0.02, Triglycerides 73, Cholesterol 135 L, LDL Cholesterol 71, VLDL Cholesterol 15, HDL Cholesterol 49, Cholesterol/HDL Ratio 2.8 <Michela Holland - 10/20/19 08:35> I & O for Last 24 hours: Intake & Output 10/17/19 10/18/19 10/19/19 10/20/19 11:59 11:59 11:59 11:59 Intake Total 129 / 129 Output Total 150 / 150 Balance - Weight 132 lb 7 oz <Paxton Ma - 10/20/19 09:28> Intake & Output 10/17/19 10/18/19 10/19/19 10/20/19 11:59 11:59 11:59 11:59 Intake Total 129 / 129 Balance 129 / 129 Weight 132 lb 7 oz <Michela Holland - 10/20/19 08:35> Radiology Reports for the Last 24 Hours: 10/19/2019 chest x-ray IMPRESSION: No acute finding. Nodular opacity right lung base which may be due to nipple shadow and may be confirmed with nipple markers. [facility] 10/20/19 08:35> - Constitutional no acute distress <[facility] 10/20/19 08:35> Comments: Appears comfortable <[facility] 10/20/19 08:35> - *Routine HEENT Exam Head: Present: normocephalic, atraumatic [facility]> Eye: Present: PERRL. Absent: conjunctival icterus, scleral injection [facility] 10/20/19 08:35> ENT: Present: mucous membranes moist, oropharynx clear <[facility] 10/20/19 08:35> - *Routine Neck Exam Present: supple. Absent: carotid bruit, lymphadenopathy, thyromegaly [facility] 10/20/19 08:35> - *Routine Respiratory Exam Present: CTA bilaterally (Anteriorly and posteriorly) [facility] 10/20/19 08:35> - *Routine Cardiovascular Exam Present: RRR <[facility] 10/20/19 08:35> - *Routine Abdominal Exam Present: soft, normoactive bowel sounds. Absent: tenderness, distended, guarding <[facility] 10/20/19 08:35> - *Routine Extremities Exam Present: pulses intact. Absent: edema, calf tenderness <Holland,[facility] 10/20/19 08:35> - *Routine Neurological Exam Present: alert, oriented X3 [facility] 08:35> Assessment and Plan (1) Chest pain Current visit: Yes Status: Acute Qualifiers: Chest pain type: unspecified Qualified Code(s): R07.9 - Chest pain, unspecified Category: Medical Code(s): R07.9 - Chest pain, unspecified (2) GERD (gastroesophageal reflux disease) Current visit: Yes Status: Chronic Category: Medical Code(s): K21.9 - Gastro-esophageal reflux disease without esophagitis (3) Stage 3 chronic kidney disease Current visit: Yes Status: Chronic Category: Medical Code(s): N18.3 - Chronic kidney disease, stage 3 (moderate) (4) HIV disease Current visit: No Status: Chronic Category: Medical Code(s): B20 - Human immunodeficiency virus [HIV] disease (5) Hyperlipidemia Current visit: No Status: Chronic Category: Medical Code(s): E78.5 - Hyperlipidemia, unspecified (6) Hypertension Current visit: No Status: Chronic Category: Medical Code(s): I10 - Essential (primary) hypertension <Michela Holland - 10/20/19 08:36> (1) Syncope Current visit: Yes Status: Acute Qualifiers: Syncope type: unspecified Qualified Code(s): R55 - Syncope and collapse Category: Medical Code(s): R55 - Syncope and collapse (2) Chest pain Current visit: Yes Status: Acute Qualifiers: Chest pain type: unspecified Qualified Code(s): R07.9 - Chest pain, unspecified Category: Medical Code(s): R07.9 - Chest pain, unspecified (3) GERD (gastroesophageal reflux disease) Current visit: Yes Status: Chronic Category: Medical Code(s): K21.9 - Gastro-esophageal reflux disease without esophagitis (4) Stage 3 chronic kidney disease Current visit: Yes Status: Chronic Category: Medical Code(s): N18.3 - Chronic kidney disease, stage 3 (moderate) (5) HIV disease Current visit: No Status: Chronic Category: Medical Code(s): B20 - Human immunodeficiency virus [HIV] disease (6) Hyperlipidemia Current visit: No Status: Chronic Category: Medical Code(s): E78.5 - Hyperlipidemia, unspecified (7) Hypertension Current visit: No Status: Chronic Category: Medical Code(s): I10 - Essential (primary) hypertension <FrancescaPaxton Lan - 10/20/19 09:28> - Assessment and plan all Dx Assessment and Plan for all problems:: Patient seen and examined. Concur with above assessment and plan. His symptoms are suspicious for heart disease. Awaiting cardiology consultation and recommendations. <Paxton Ma - 10/20/19 09:28> Continue to monitor. Cardiology to see this morning. Echo has been completed with pending results. <Michela Holland - 10/20/19 08:44>
--- NOTE | 2019-10-20 08:57 | Consult Report ---
History of Present Illness Consult date: 10/20/19 Requesting physician: Paxton Ma Consult reason: chest pain Chief complaint: Syncope and chest pain Additional Medical History:: 1. HTN 2. HLD 3. Former Tobacco user 4. HIV positive 5. H/O DVTs, s/p IVC filter 6. GERD 7. Renal disease History of present illness: This is a 69-year-old gentleman who was admitted to the hospital after syncopal episode and chest pain. The patient states that he was at home when he had sudden onset of diaphoresis and then passed out. The patient is unsure of how long he was truly passed out. He reports that he did lose consciousness. The patient states when he woke up he had anterior chest pain. He states that this was a chest pressure in the center of his chest. It did not radiate. It was associated with shortness of breath and diaphoresis. He states the pain was a 6 or a 7 out of 10 in intensity. He states that nothing was worsening or improving his chest pain. He states that when he came to the emergency department they did put him on oxygen which did help his shortness of breath. He states he has never had symptoms like this before. He denies any history of coronary artery disease or [place]. The patient states that this morning his chest pain has resolved. He denies any fever, chills, nausea, vomiting, diarrhea, PND or orthopnea. [facility] History I have reviewed the patient's past medical history: Yes Medical History: Reports:: Deep Vein Thrombosis (IVC filter in place), Depression, Gastroesophageal Reflux Disease(GERD), Hyperlipidemia, Hypertension, Renal Disease, Renal Insufficiency Denies:: Cancer, Coronary Artery Disease, Diabetes Mellitus Type 1, Diabetes Mellitus Type 2, Internal Pacemaker, MRSA *Have you ever received a pneumonia vaccine?: Yes *Have you received a flu vaccine this season?: Yes Other Medical History: Reports: Arthritis, Acquired Immunodeficiency Syndrome (AIDS), HIV Other Surgeries: Yes: Colonoscopy, Other (Hemorrhoidectomy). No: Pacemaker Amputation: No Fractures: No - *Social History Educational Level: Attended High School Smoking Status: Former smoker Tobacco Type: cigarettes # Packs/Day (cigarettes): 1 #Yrs smoked (if former smoker): 15 Smoking End Date: 35 YEARS AGO Alcohol Intake: former Alcohol Intake Frequency:: a few times a month Substance Use Type: marijuana Last Used Substance: days (ago) *Occupational Status:: retired Housing: house Household Members: spouse, children *Travel in the last 8 weeks: None - Psychiatric History Pschychiatric History:: Reports:: Depression Family Hx:: Diabetes, Stroke Meds Home Medications Medication Instructions Recorded Confirmed Type Abacavir Sulfate [Abacavir] 600 mg PO DAILY 10/19/19 10/19/19 History Atorvastatin Calcium [Atorvastatin 20 mg PO HS 10/19/19 10/19/19 History 20mg Tab] Dolutegravir Sodium [Tivicay] 50 mg PO DAILY 10/19/19 10/19/19 History Escitalopram Oxalate 20 mg PO DAILY 10/19/19 10/19/19 History Lisinopril [Lisinopril 10mg Tab] 10 mg PO DAILY 10/19/19 10/19/19 History Multivit-Min/FA/Lycopen/Lutein 1 each PO DAILY 10/19/19 10/19/19 History [Men 50 Plus Multivitamin Tab] Nortriptyline HCl 25 mg PO HS 10/19/19 10/19/19 History Tamsulosin HCl [Flomax 0.4mg 0.4 mg PO HS 10/19/19 10/19/19 History capsule] buPROPion HCl [Bupropion Xl] 150 mg PO DAILY 10/19/19 10/19/19 History lamiVUDine [Lamivudine] 150 mg PO DAILY 10/19/19 10/19/19 History Allergies Allergy/AdvReac Type Severity Reaction Status Date / Time morphine Allergy Verified 08/11/19 20:35 Review of Systems - Review of Systems Review of systems:: pertinent systems reviewed and negative unless documented below - Constitutional Reports excessive sweating - *Cardiovascular Reports chest pain, Reports chest pain at rest, Reports chest pain with activity, Reports excessive sweating, Reports shortness of breath, Reports shortness of breath with activity - *Respiratory Reports shortness of breath, Reports shortness of breath with activity - *Neurologic Reports other (syncope), Denies abnormal walking, Denies seizure-like activity, Denies localized weakness, Denies headache(s), Denies seizure-like activity, Denies weakness Exam Vital signs and Labs for Last 24 Hours: Temp Pulse Resp BP Pulse Ox 97.5 F L 70 18 140/77 95 10/20/19 03:33 10/20/19 04:36 10/20/19 03:33 10/20/19 03:33 10/20/19 05:30 Laboratory Results - last 24 hr 10/19/19 22:25: Troponin I < 0.02 10/19/19 22:25: WBC 7.5, RBC 3.66 L, Hgb 12.0 L, Hct 36.2 L, MCV 98.9 H, MCH 3 2.7 H, MCHC 33.1, RDW 12.6, Plt Count 157, MPV 8.0, Neut % (Auto) 71.1, Lymph % (Auto) 20.2, [place] % (Auto) 5.7, Eos % (Auto) 2.4, Baso % (Auto) 0.5, Neut # (Auto) 5.4, Lymph # (Auto) 1.5, [place] # (Auto) 0.4, Eos # (Auto) 0.2, Baso # (Auto) 0.0 10/19/19 22:25: Sodium 138, Potassium 4.1, Chloride 103, Carbon Dioxide 27, Anion Gap 12.1, BUN 22 H, Creatinine 2.05 H, Estimated Creat Clear 30, Estimated GFR 32 L, Est GFR ( Amer) 39 L, Glucose 129 H, Calcium 8.4 L 10/20/19 00:00: Total Bilirubin 0.2, Direct Bilirubin 0.1, Indirect Bilirubin 0.1, AST 19, ALT 19, Alkaline Phosphatase 85, Total Protein 7.4, Albumin 3.8 10/20/19 07:28: WBC 6.8, RBC 3.44 L, Hgb 11.1 L, Hct 33.3 L, MCV 96.9 H, MCH 32.4 H, MCHC 33.4, RDW 12.6, Plt Count 142, MPV 8.0, Neut % (Auto) 54.9, Lymph % (Auto) 34.4, [place] % (Auto) 6.7, Eos % (Auto) 3.5, Baso % (Auto) 0.5, Neut # (Auto) 3.7, Lymph # (Auto) 2.3, [place] # (Auto) 0.5, Eos # (Auto) 0.2, Baso # (Auto) 0.0 10/20/19 07:28: Sodium 137, Potassium 3.9, Chloride 105, Carbon Dioxide 28, Anion Gap 7.9, BUN 21 H, Creatinine 1.81 H, Estimated Creat Clear 33, Estimated GFR 37 L, Est GFR ( Amer) 45 L, Glucose 92 D, Calcium 8.4 L 10/20/19 07:28: Magnesium 2.0, Troponin I < 0.02, Triglycerides 73, Cholesterol 135 L, LDL Cholesterol 71, VLDL Cholesterol 15, HDL Cholesterol 49, Cholesterol/HDL Ratio 2.8 I & O for Last 24 hours: Intake & Output 10/17/19 10/18/19 10/19/19 10/20/19 23:59 23:59 23:59 23:59 Intake Total 129 / 129 Balance 129 / 129 Weight 135 lb 132 lb 7 oz Narrative: EKG is sinus rhythm with a rate of 83. - Constitutional no acute distress, average body habitus - *Routine HEENT Exam Head: Present: normocephalic, atraumatic Eye: Present: EOMI, PERRL ENT: Present: mucous membranes moist - *Routine Neck Exam Present: supple, full ROM, normal carotid upstroke. Absent: JVD, carotid bruit, lymphadenopathy - *Routine Respiratory Exam Present: CTA bilaterally - *Routine Cardiovascular Exam Present: RRR, Normal S1, Normal S2. Absent: murmur, gallop - *Routine Abdominal Exam Present: soft, normoactive bowel sounds. Absent: tenderness, distended - *Routine Extremities Exam Present: full ROM, pulses intact, normal capillary refill. Absent: cyanosis, clubbing, edema - *Routine Skin Exam Present: intact, warm. Absent: erythema, rash - *Routine Neurological Exam Present: alert, oriented X3, CN II-XII intact. Absent: sensory deficit, motor deficit - Routine Psychiatric Exam Present: normal affect, normal thought process - Detailed Eye Exam Eyelids: Left normal inspection Assessment and Plan (1) Syncope Current visit: Yes Status: Acute Qualifiers: Syncope type: unspecified Qualified Code(s): R55 - Syncope and collapse Category: Medical Code(s): R55 - Syncope and collapse (2) Chest pain Current visit: Yes Status: Acute Qualifiers: Chest pain type: unspecified Qualified Code(s): R07.9 - Chest pain, unspecified Category: Medical Code(s): R07.9 - Chest pain, unspecified (3) GERD (gastroesophageal reflux disease) Current visit: Yes Status: Chronic Category: Medical Code(s): K21.9 - Gastro-esophageal reflux disease without esophagitis (4) Stage 3 chronic kidney disease Current visit: Yes Status: Chronic Category: Medical Code(s): N18.3 - Chronic kidney disease, stage 3 (moderate) (5) HIV disease Current visit: No Status: Chronic Category: Medical Code(s): B20 - Human immunodeficiency virus [HIV] disease (6) Hyperlipidemia Current visit: No Status: Chronic Category: Medical Code(s): E78.5 - Hyperlipidemia, unspecified (7) Hypertension Current visit: No Status: Chronic Category: Medical Code(s): I10 - Essential (primary) hypertension - Assessment and plan all Dx Assessment and Plan for all problems:: Plan: 1. The patient was noted to the hospital after an episode of syncope and chest pain. The patient states that he had never had symptoms like this before. He had sudden onset of diaphoresis followed by syncope. When he woke up the patient was having anterior chest pain. Please see HPI. The patient has ruled out for an [place]. Will set the patient up for a Myoview stress test to rule out ischemia given his syncope with chest pain. 2. We will get an echocardiogram to evaluate LV function. 3. The patient will need a 48-hour Holter monitor prior to discharge from the hospital secondary to his syncope. Want to rule out any arrhythmias. At this point the patient has had no arrhythmias on telemetry. 4. His blood pressure is well controlled. 5. His LDL goal is less than 100. His LDL is currently 71. 6. The patient does have a history of HIV/AIDS. Will defer management of this to his primary care provider. 7. Further recommendations will be made pending the patient's response to treatment and the results of his echocardiogram and Myoview stress test later today. Thank you for the opportunity to help participate in the care of this patient.
--- NOTE | 2019-10-21 08:26 | Progress Note ---
<Mireille Almanza - Last Filed: 10/21/19 08:25> Internal Medicine - PN: Subj *Date: 10/21/19 *Time: 08:25 Interval history: Patient states he feels great this morning. He had no further chest pain or syncopal episodes. He slept well last night and ate a good breakfast this morning. He is anxious to go home. Exam Vital signs and Labs for Last 24 Hours: Temp Pulse Resp BP Pulse Ox 98.1 F 71 17 120/71 98 10/21/19 04:00 10/21/19 04:00 10/21/19 04:00 10/21/19 04:00 10/21/19 04:00 Laboratory Results - last 24 hr 10/20/19 09:15: Troponin I < 0.02 I & O for Last 24 hours: Intake & Output 10/18/19 10/19/19 10/20/19 10/21/19 11:59 11:59 11:59 11:59 Intake Total 129 / 129 1634 / 1634 Output Total 150 / 150 Balance - 1634 / 1634 Weight 132 lb 7 oz 133 lb 4 oz - Constitutional no acute distress - *Routine Respiratory Exam Present: CTA bilaterally - *Routine Cardiovascular Exam Present: RRR - *Routine Abdominal Exam Present: soft, normoactive bowel sounds. Absent: tenderness - *Routine Extremities Exam Absent: cyanosis, clubbing, edema - *Routine Skin Exam Present: warm. Absent: rash - *Routine Neurological Exam Present: alert, oriented X3 Assessment and Plan (1) Syncope Current visit: Yes Status: Acute Qualifiers: Syncope type: unspecified Qualified Code(s): R55 - Syncope and collapse Category: Medical Code(s): R55 - Syncope and collapse (2) Chest pain Current visit: Yes Status: Acute Qualifiers: Chest pain type: unspecified Qualified Code(s): R07.9 - Chest pain, unspecified Category: Medical Code(s): R07.9 - Chest pain, unspecified (3) GERD (gastroesophageal reflux disease) Current visit: Yes Status: Chronic Category: Medical Code(s): K21.9 - Gastro-esophageal reflux disease without esophagitis (4) Stage 3 chronic kidney disease Current visit: Yes Status: Chronic Category: Medical Code(s): N18.3 - Chronic kidney disease, stage 3 (moderate) (5) HIV disease Current visit: No Status: Chronic Category: Medical Code(s): B20 - Human immunodeficiency virus [HIV] disease (6) Hyperlipidemia Current visit: No Status: Chronic Category: Medical Code(s): E78.5 - Hyperlipidemia, unspecified (7) Hypertension Current visit: No Status: Chronic Category: Medical Code(s): I10 - Essential (primary) hypertension - Assessment and plan all Dx Assessment and Plan for all problems:: Possible discharge home soon. Cardiology to follow. <Paxton Ma - Last Filed: 10/21/19 14:04> Internal Medicine - PN: Subj *Date: 10/21/19 *Time: 14:04 Exam Vital signs and Labs for Last 24 Hours: Temp Pulse Resp BP Pulse Ox 98.4 F 70 17 130/70 99 10/21/19 08:00 10/21/19 08:00 10/21/19 08:00 10/21/19 08:00 10/21/19 08:00 Laboratory Results - last 24 hr 10/21/19 09:50: Sodium 139, Potassium 4.1, Chloride 106, Carbon Dioxide 29, Anion Gap 8.1, BUN 23 H, Creatinine 2.04 H, Estimated Creat Clear 30, Estimated GFR 33 L, Est GFR ( Amer) 39 L, Glucose 121 H, Calcium 8.9 10/21/19 13:22: Activated Clotting Time > 400 H* I & O for Last 24 hours: Intake & Output 10/19/19 10/20/19 10/21/19 10/22/19 11:59 11:59 11:59 11:59 Intake Total 129 / 129 1993 Output Total 150 / 150 Balance -1993 Weight 132 lb 7 oz 133 lb 4 oz Assessment and Plan (1) Angina pectoris Current visit: Yes Status: Acute Category: Medical Code(s): I20.9 - Angina pectoris, unspecified (2) Syncope Current visit: Yes Status: Acute Qualifiers: Syncope type: unspecified Qualified Code(s): R55 - Syncope and collapse Category: Medical Code(s): R55 - Syncope and collapse (3) Abnormal cardiovascular stress test Current visit: Yes Status: Acute Category: Medical Code(s): R94.39 - Abnormal result of other cardiovascular function study (4) GERD (gastroesophageal reflux disease) Current visit: Yes Status: Chronic Category: Medical Code(s): K21.9 - Gastro-esophageal reflux disease without esophagitis (5) Stage 3 chronic kidney disease Current visit: Yes Status: Chronic Category: Medical Code(s): N18.3 - Chronic kidney disease, stage 3 (moderate) (6) HIV disease Current visit: No Status: Chronic Category: Medical Code(s): B20 - Human immunodeficiency virus [HIV] disease (7) Hyperlipidemia Current visit: No Status: Chronic Category: Medical Code(s): E78.5 - Hyperlipidemia, unspecified (8) Hypertension Current visit: No Status: Chronic Category: Medical Code(s): I10 - Essential (primary) hypertension (9) History of deep venous thrombosis Current visit: Yes Status: Chronic Category: Medical Code(s): Z86.718 - Personal history of other venous thrombosis and embolism (10) Presence of IVC filter Current visit: Yes Status: Chronic Category: Medical Code(s): Z95.828 - Presence of other vascular implants and grafts - Assessment and plan all Dx Assessment and Plan for all problems:: Patient seen and examined this a.m. Is had no further chest pain. No abnormalities on stress test. Awaiting further cardiology recommendations.
--- NOTE | 2019-10-21 09:42 | Progress Note ---
Subjective Date: 10/21/19 Time: 09:39 Principal diagnosis: chest pain and syncope Interval history: This is a 69-year-old gentleman who was admitted to the hospital after syncopal episode followed by chest pain. The patient states that he had sudden onset of diaphoresis and then passed out. The patient states that when he woke up from his syncopal episode he was having chest pain in the anterior aspect of his chest. This was a pressure sensation in the center of his chest. It did not radiate but was associated with shortness of breath and diaphoresis. This pain was a 6 or 7 out of 10 in intensity. He states that this was continuous until he came to the emergency department and was treated. The patient denies chest pain or pressure this morning. He denies any fever, chills, nausea, vomiting, diarrhea, PND or orthopnea. He denies any shortness of breath or edema. The patient did undergo Myoview stress testing yesterday which is abnormal. His echocardiogram is still currently pending. Exam Vital signs and Labs for Last 24 Hours: Temp Pulse Resp BP Pulse Ox 98.4 F 70 17 130/70 99 10/21/19 08:00 10/21/19 08:00 10/21/19 08:00 10/21/19 08:00 10/21/19 08:00 Laboratory Results - last 24 hr 10/20/19 09:15: Troponin I < 0.02 I & O for Last 24 hours: Intake & Output 10/18/19 10/19/19 10/20/19 10/21/19 23:59 23:59 23:59 23:59 Intake Total 729 / 1548 1034 / 1034 Output Total 150 / 150 Balance 579 / 1398 1034 / 1034 Weight 135 lb 132 lb 7 oz 133 lb 4 oz Radiology Reports for the Last 24 Hours: Myoview stress test shows: EF lower limits of normal at 56% No reversible defects Decreased activity sánchez-apical region unchanged on stress/rest Fixed decrease activity inferior wall may in part be due to diaphragmatic attenuation Possible areas of infarction without redistribution Narrative: His telemetry strip shows sinus rhythm with a rate of 80. - Constitutional no acute distress, average body habitus - *Routine HEENT Exam Head: Present: normocephalic, atraumatic Eye: Present: EOMI, PERRL ENT: Present: mucous membranes moist - *Routine Neck Exam Present: supple, full ROM, normal carotid upstroke. Absent: JVD, carotid bruit, lymphadenopathy - *Routine Respiratory Exam Present: CTA bilaterally - *Routine Cardiovascular Exam Present: RRR, Normal S1, Normal S2. Absent: murmur, gallop - *Routine Abdominal Exam Present: soft, normoactive bowel sounds. Absent: tenderness, distended - *Routine Extremities Exam Present: full ROM, pulses intact, normal capillary refill. Absent: cyanosis, clubbing, edema - *Routine Skin Exam Present: intact, warm. Absent: erythema, rash - *Routine Neurological Exam Present: alert, oriented X3, CN II-XII intact. Absent: sensory deficit, motor deficit - Detailed Eye Exam Eyelids: Left normal inspection Progress Note: A&P (1) Angina pectoris Status: Acute Current Visit: Yes (2) Syncope Status: Acute Current Visit: Yes (3) Abnormal cardiovascular stress test Status: Acute Current Visit: Yes (4) GERD (gastroesophageal reflux disease) Status: Chronic Current Visit: Yes (5) Stage 3 chronic kidney disease Status: Chronic Current Visit: Yes (6) HIV disease Status: Chronic Current Visit: No (7) Hyperlipidemia Status: Chronic Current Visit: No (8) Hypertension Status: Chronic Current Visit: No (9) History of deep venous thrombosis Status: Chronic Current Visit: Yes (10) Presence of IVC filter Status: Chronic Current Visit: Yes Assessment and Plan for All Diagnoses:: Plan: 1. The patient was admitted to the hospital after an episode of syncope and when he woke up he was having chest pain. The patient is having symptoms consistent with typical angina. He has a Myoview stress test which is abnormal. In the setting of his typical angina and syncope as well as an abnormal Myoview stress test, we will plan to proceed with left cardiac catheterization to evaluate for coronary artery disease. 2. The patient has been educated on the risks and benefits of proceeding with left cardiac catheterization. The patient verbalizes understanding and is agreeable to proceeding with the procedure. 3. The patient will get IV fluids and premedications prior to the left cardiac catheterization. 4. We will repeat a BMP this morning prior to left cardiac catheterization. He does have a history of chronic kidney disease. Will make sure the patient is hydrated prior to the left cardiac catheterization. Will be mindful of the contrast load to avoid contrast nephropathy. 5. His blood pressure is well controlled. 6. His LDL goal is less than 100. His LDL is 71. 7. The patient does have HIV/AIDS. Will defer management of this to his primary care provider. 8. His echocardiogram is currently pending. 9. The patient will need to have a 48-hour Holter monitor in place prior to discharge home secondary to his syncope. Want to rule out any arrhythmias. He has not had any arrhythmias on telemetry while in the hospital. 10. Further recommendations will be made pending the patient's response to tr eatment and the results of his left cardiac catheterization today. Thank you for the opportunity to help participate in the care of this patient.
--- NOTE | 2019-10-21 09:57 | Cardiology Report ---
APPROVED REPORT Exam: Exercise Treadmill Technologist: Annelise Conti Ht: 5 ft 5 in Wt: 132 lbs BSA: 1.66 m2 HR: 72 bpm BP: 161/91 mmHg Indications: Chest pain, Syncope Medical History Medications: Lisinopril,,,,, Atorvastatin,,,,, Escitalopram,,,,, TAMSULOSIN,,,,, Calcium,,,,, BuPROPION,,,,, Multivitamin,,,,, Nortriptyline,,,,, AbAcavir,,,,, LaMIvudine,,,,, Stress Test Details Test: Eduardo HR Resting HR: 81 bpmMax Heart Rate (APMHR): 152 bpm Max HR Achieved: 136 bpmTarget HR (85% APMHR): 129 bpm % of APMHR: 89 Recovery HR: 97 bpm BP Resting BP: 161.0/91.0 mmHg Max BP: 178.0/89.0 mmHg Recovery BP: 178.0/89.0 mmHg ECG Clinical Exercise duration: 08:00 min Highest Stage Achieved: Exercise capacity: 10.1 METs Stress ECG Conclusion Resting ECG: Sinus rhythm Eduardo protocol completed. Patient exercised 08:00. Test stopped due to leg fatigue. Symptoms: Leg fatigue at peak exercise, resolved in recovery. No chest pain. No shortness of breath. Arrhythmias/Ectopy: No ectopy noted. ST-T Changes: Less than 1.[address] depression. Conclusion: Images to follow. Test Summary REST.......Sitting REST09:[id number]/ 91.. Stage 101:0010.01.789.... Stage 102:0010.01.7101.... Stage 103:0010.01.7105.... Stage 201:0012.02.5110.... Stage 202:0012.02.5115.... Stage 203:0012.02.5118.140/ 80.. Stage 3.......Cardiolite injected Stage 301:0014.03.4128.... Stage 302:0014.03.4134...Stop exercise at 08:00 [id number]:[id number]/ 88.. [id number]:000.00.0101.160/ 88.. [id number]:000.00.0102.177/ 83.. TDRESEFO99:000.00.0100.175/ .. [id number]:000.00.098.175/ .. [id number]:170.00.097.178/ 89.. Electronically signed by : Hebert Whittington, 10/21/2019 09:56:51
[2019-10-21 10:10] LABS: Anion Gap 8.1 mEq/L (5-15); Calcium 8.9 mg/dL (8.5-10.1)
--- NOTE | 2019-10-21 12:50 | Cardiology Report ---
APPROVED REPORT EXAM: Comprehensive 2D, Doppler, and color-flow Echocardiogram Counter Pocket Trimmer: Mirian Collado CRT Ht: 5 ft 5 in Wt: 135lbs BSA: 1.67 BP: 133/80 mmHg Indications: cp, sob, diaphoresis, hiv, stage 3 ckd 2D Dimensions LVOT 1.93 cm (M/F) 1.5-2.5 M-Mode Dimensions RVDd 1.88 cm (0.9-2.6)LVDd 4.83 cm (3.5-5.7) LVDs 3.55 cm (3.5-5.7)IVSd 1.26 cm (0.6-1.1) PWd 0.35 cm (0.6-1.1)EF (Teich) 51.80% FS 26.50% EDV (Teich) 109.10 mL ESV (Teich) 52.60 mL LV Diastology E/A Ratio 0.82 Mitral Valve MV A Velocity 184.00 (40-130 cm/s) Left Ventricle Left atrium is normal size, left ventricle is normal size, there is no concentric left ventricular hypertrophy, visually estimated ejection fraction 55% with no obvious regional wall motion abnormality. Grade 1 diastolic dysfunction seen without tissue Doppler evidence of raise left atrial pressure. Right Ventricle Right atrium and right ventricular normal size and contractility. Aortic Valve Aortic valve is grossly normal, there is no aortic stenosis aortic insufficiency. Mitral Valve Mitral valve is grossly normal, there is mild mitral regurgitation. Tricuspid Valve Tricuspid valve is grossly normal, there is mild tricuspid regurgitation. Pulmonic Valve Pulmonic valve is poorly visualized. Great Vessels Aortic root is normal size. Pericardium No significant pericardial effusion noted. Conclusion 1. Normal left ventricular size, preserved left ventricular systolic function, visually estimated ejection fraction 55% with no regional wall motion abnormality, grade 1 diastolic dysfunction seen without tissue Doppler evidence of raise left atrial pressure. 2. Mild mitral and tricuspid regurgitation. 3. No significant pericardial effusion noted. Electronically signed by : Hebert Whittington, 10/21/2019 12:49:11
[2019-10-22 06:29] LABS: Anion Gap 9.7 mEq/L (5-15); Calcium 8.3 mg/dL (8.5-10.1)
[2019-10-22 06:34] LABS: Basophils % 0.5 % (0.1-2.0); Eosinophils # 0.3 K/mm3 (0.0-0.4); Eosinophils % 4.7 % (0.1-12.0); Hemoglobin 10.9 g/dL (14.1-18.0); Lymphocytes # 2.5 K/mm3 (0.7-4.5); Lymphocytes % 37.6 % (10-50); Mean Corpuscular Volume 101.2 fl (80-94); Mean Platelet Volume 8.2 fl (7.4-10.4); Monocytes # 0.4 K/mm3 (0.1-1.0); Monocytes % 6.1 % (1.7-9.3); Neutrophils # 3.4 K/mm3 (1.8-7.8); Neutrophils % 51.1 % (37.0-80.0); Platelet Count 115 K/mm3 (142-424); Red Blood Count 3.36 M/mm3 (4.60-6.20); Red Cell Distribution Width 13.1 % (11.5-17.5); White Blood Count 6.6 K/mm3 (4.8-10.8)
--- NOTE | 2019-10-22 08:09 | Progress Note ---
<Mireille Almanza - Last Filed: 10/22/19 08:07> Internal Medicine - PN: Subj *Date: 10/22/19 *Time: 08:07 Interval history: Patient states he is feeling well this morning. He has had no further episodes of chest pain. He denies any shortness of breath. He is eating well and slept well and is anxious to go home. Exam Vital signs and Labs for Last 24 Hours: Temp Pulse Resp BP Pulse Ox 97.9 F 60 12 120/73 97 10/22/19 04:00 10/22/19 06:00 10/22/19 06:00 10/22/19 06:00 10/22/19 06:00 Laboratory Results - last 24 hr 10/21/19 09:50: Sodium 139, Potassium 4.1, Chloride 106, Carbon Dioxide 29, Anion Gap 8.1, BUN 23 H, Creatinine 2.04 H, Estimated Creat Clear 30, Estimated GFR 33 L, Est GFR ( Amer) 39 L, Glucose 121 H, Calcium 8.9 10/21/19 13:22: Activated Clotting Time > 400 H* 10/22/19 05:53: WBC 6.6, RBC 3.36 L, Hgb 10.9 L, Hct 34.0 L, MCV 101.2 H, MCH 32.4 H, MCHC 32.0, RDW 13.1, Plt Count 115 L, MPV 8.2, Neut % (Auto) 51.1, Lymph % (Auto) 37.6, [place] % (Auto) 6.1, Eos % (Auto) 4.7, Baso % (Auto) 0.5, Neut # (Auto) 3.4, Lymph # (Auto) 2.5, [place] # (Auto) 0.4, Eos # (Auto) 0.3, Baso # (Auto) 0.0 10/22/19 05:53: Sodium 138, Potassium 4.7, Chloride 107, Carbon Dioxide 26, Anion Gap 9.7, BUN 24 H, Creatinine 2.02 H, Estimated Creat Clear 31, Estimated GFR 33 L, Est GFR ( Amer) 40 L, Glucose 93 D, Calcium 8.3 L I & O for Last 24 hours: Intake & Output 10/19/19 10/20/19 10/21/19 10/22/19 11:59 11:59 11:59 11:59 Intake Total 129 / 129 19935 / 1035 Output Total 150 / 150 Balance - / -19935 / 1035 Weight 132 lb 7 oz 133 lb 4 oz 138 lb 1 oz - Constitutional no acute distress - *Routine Respiratory Exam Present: CTA bilaterally - *Routine Cardiovascular Exam Present: RRR - *Routine Abdominal Exam Present: soft, normoactive bowel sounds. Absent: tenderness - *Routine Extremities Exam Absent: cyanosis, clubbing, edema - *Routine Skin Exam Present: warm. Absent: rash - *Routine Neurological Exam Present: alert, oriented X3 Assessment and Plan (1) Angina pectoris Status: Acute Category: Medical Code(s): I20.9 - Angina pectoris, unspecified (2) Syncope Status: Acute Qualifiers: Syncope type: unspecified Qualified Code(s): R55 - Syncope and collapse Category: Medical Code(s): R55 - Syncope and collapse (3) Abnormal cardiovascular stress test Status: Acute Category: Medical Code(s): R94.39 - Abnormal result of other cardiovascular function study (4) GERD (gastroesophageal reflux disease) Status: Chronic Category: Medical Code(s): K21.9 - Gastro-esophageal reflux disease without esophagitis (5) Stage 3 chronic kidney disease Status: Chronic Category: Medical Code(s): N18.3 - Chronic kidney disease, stage 3 (moderate) (6) HIV disease Status: Chronic Category: Medical Code(s): B20 - Human immunodeficiency virus [HIV] disease (7) Hyperlipidemia Status: Chronic Category: Medical Code(s): E78.5 - Hyperlipidemia, unspecified (8) Hypertension Status: Chronic Category: Medical Code(s): I10 - Essential (primary) hypertension (9) History of deep venous thrombosis Status: Chronic Category: Medical Code(s): Z86.718 - Personal history of other venous thrombosis and embolism (10) Presence of IVC filter Status: Chronic Category: Medical Code(s): Z95.828 - Presence of other vascular implants and grafts (11) Stented coronary artery Status: Acute Category: Surgical Code(s): Z95.5 - Presence of coronary angioplasty implant and graft (12) Coronary artery disease Status: Acute Category: Medical Code(s): I25.10 - Atherosclerotic heart disease of [place] coronary artery without angina pectoris - Assessment and plan all Dx Assessment and Plan for all problems:: Cardiology to see patient today. Possible discharge home. <Paxton Ma - Last Filed: 10/22/19 13:20> Internal Medicine - PN: Subj *Date: 10/22/19 *Time: 13:19 Exam Vital signs and Labs for Last 24 Hours: Temp Pulse Resp BP Pulse Ox 97.9 F 72 20 132/80 100 10/22/19 04:00 10/22/19 10:00 10/22/19 10:00 10/22/19 10:00 10/22/19 10:00 Laboratory Results - last 24 hr 10/21/19 13:22: Activated Clotting Time > 400 H* 10/22/19 05:53: WBC 6.6, RBC 3.36 L, Hgb 10.9 L, Hct 34.0 L, MCV 101.2 H, MCH 32.4 H, MCHC 32.0, RDW 13.1, Plt Count 115 L, MPV 8.2, Neut % (Auto) 51.1, Lymph % (Auto) 37.6, [place] % (Auto) 6.1, Eos % (Auto) 4.7, Baso % (Auto) 0.5, Neut # (Auto) 3.4, Lymph # (Auto) 2.5, [place] # (Auto) 0.4, Eos # (Auto) 0.3, Baso # (Auto) 0.0 10/22/19 05:53: Sodium 138, Potassium 4.7, Chloride 107, Carbon Dioxide 26, Anion Gap 9.7, BUN 24 H, Creatinine 2.02 H, Estimated Creat Clear 31, Estimated GFR 33 L, Est GFR ( Amer) 40 L, Glucose 93 D, Calcium 8.3 L I & O for Last 24 hours: Intake & Output 10/20/19 10/21/19 10/22/19 10/23/19 11:59 11:59 11:59 11:59 Intake Total 129 / 129 1993 1035 / 1035 Output Total 150 / 150 Balance -1993 1035 / 1035 Weight 132 lb 7 oz 133 lb 4 oz 138 lb 1 oz Assessment and Plan (1) Angina pectoris Status: Acute Category: Medical Code(s): I20.9 - Angina pectoris, unspecified (2) Syncope Status: Acute Qualifiers: Syncope type: unspecified Qualified Code(s): R55 - Syncope and collapse Category: Medical Code(s): R55 - Syncope and collapse (3) Abnormal cardiovascular stress test Status: Acute Category: Medical Code(s): R94.39 - Abnormal result of other cardiovascular function study (4) GERD (gastroesophageal reflux disease) Status: Chronic Category: Medical Code(s): K21.9 - Gastro-esophageal reflux disease without esophagitis (5) Stage 3 chronic kidney disease Status: Chronic Category: Medical Code(s): N18.3 - Chronic kidney disease, stage 3 (moderate) (6) HIV disease Status: Chronic Category: Medical Code(s): B20 - Human immunodeficiency virus [HIV] disease (7) Hyperlipidemia Status: Chronic Category: Medical Code(s): E78.5 - Hyperlipidemia, unspecified (8) Hypertension Status: Chronic Category: Medical Code(s): I10 - Essential (primary) hypertension (9) History of deep venous thrombosis Status: Chronic Category: Medical Code(s): Z86.718 - Personal history of other venous thrombosis and embolism (10) Presence of IVC filter Status: Chronic Category: Medical Code(s): Z95.828 - Presence of other vascular implants and grafts (11) Stented coronary artery Status: Acute Category: Surgical Code(s): Z95.5 - Presence of coronary angioplasty implant and graft (12) Coronary artery disease Status: Acute Category: Medical Code(s): I25.10 - Atherosclerotic heart disease of [place] coronary artery without angina pectoris - Assessment and plan all Dx Assessment and Plan for all problems:: Patient seen and examined. Cardiology recommendations noted. Stable for discharge. Will arrange for outpt f/u with cardiology.
--- NOTE | 2019-10-22 08:13 | Electrocardiograph Report ---
APPROVED REPORT Exam: Resting ECG HR:83 bpm ECG Measurements Heart Rate 83 AXES WV 172 P 91 QRSd 86 QRS 61 QT 362 T67 QTc 425 <Conclusion> Normal sinus rhythm Normal ECG Electronically signed by : Trav Wilkins, 10/22/2019 08:13:30
--- NOTE | 2019-10-22 09:59 | Progress Note ---
Subjective Date: 10/22/19 Time: 09:57 Principal diagnosis: chest pain and syncope Interval history: 69-year-old white male in bed in no acute distress. States he feels much better since coronary stenting yesterday. Nursing relates small hematoma at the right wrist. This significantly improved with compression. Patient has good pulse this a.m. Exam Vital signs and Labs for Last 24 Hours: Temp Pulse Resp BP Pulse Ox 97.9 F 60 12 120/73 97 10/22/19 04:00 10/22/19 06:00 10/22/19 06:00 10/22/19 06:00 10/22/19 06:00 Laboratory Results - last 24 hr 10/21/19 09:50: Sodium 139, Potassium 4.1, Chloride 106, Carbon Dioxide 29, Anion Gap 8.1, BUN 23 H, Creatinine 2.04 H, Estimated Creat Clear 30, Estimated GFR 33 L, Est GFR ( Amer) 39 L, Glucose 121 H, Calcium 8.9 10/21/19 13:22: Activated Clotting Time > 400 H* 10/22/19 05:53: WBC 6.6, RBC 3.36 L, Hgb 10.9 L, Hct 34.0 L, MCV 101.2 H, MCH 32.4 H, MCHC 32.0, RDW 13.1, Plt Count 115 L, MPV 8.2, Neut % (Auto) 51.1, Lymph % (Auto) 37.6, [place] % (Auto) 6.1, Eos % (Auto) 4.7, Baso % (Auto) 0.5, Neut # (Auto) 3.4, Lymph # (Auto) 2.5, [place] # (Auto) 0.4, Eos # (Auto) 0.3, Baso # (Auto) 0.0 10/22/19 05:53: Sodium 138, Potassium 4.7, Chloride 107, Carbon Dioxide 26, Anion Gap 9.7, BUN 24 H, Creatinine 2.02 H, Estimated Creat Clear 31, Estimated GFR 33 L, Est GFR ( Amer) 40 L, Glucose 93 D, Calcium 8.3 L I & O for Last 24 hours: Intake & Output 10/19/19 10/20/19 10/21/19 10/22/19 11:59 11:59 11:59 11:59 Intake Total 129 / 129 1993 1035 / 1035 Output Total 150 / 150 Balance -21 / -21 1993 1035 / 1035 Weight 132 lb 7 oz 133 lb 4 oz 138 lb 1 oz - *Routine Respiratory Exam Present: CTA bilaterally. Absent: accessory muscle use, rales, rhonchi, wheezes - *Routine Cardiovascular Exam Present: RRR. Absent: murmur, gallop, rubs - *Routine Extremities Exam Absent: edema, calf tenderness - *Routine Neurological Exam Present: alert, oriented X3, moving all extremities Progress Note: A&P (1) Angina pectoris Status: Acute Current Visit: Yes (2) Syncope Status: Acute Current Visit: Yes (3) Abnormal cardiovascular stress test Status: Acute Current Visit: Yes (4) GERD (gastroesophageal reflux disease) Status: Chronic Current Visit: Yes (5) Stage 3 chronic kidney disease Status: Chronic Current Visit: Yes (6) HIV disease Status: Chronic Current Visit: No (7) Hyperlipidemia Status: Chronic Current Visit: No (8) Hypertension Status: Chronic Current Visit: No (9) History of deep venous thrombosis Status: Chronic Current Visit: Yes (10) Presence of IVC filter Status: Chronic Current Visit: Yes (11) Stented coronary artery Status: Acute Current Visit: Yes (12) Coronary artery disease Status: Acute Current Visit: Yes Assessment and Plan for All Diagnoses:: 1. Okay for discharge home from cardiology standpoint. 2. Home medication recommendations: Aspirin 81 mg daily, Brilinta 90 mg twice daily, metoprolol XL 25 mg nightly, atorvastatin 20 mg daily and lisinopril 10 mg daily 3. Limited use of right wrist for the next week 4. Follow-up in our office in 1-2 weeks
--- NOTE | 2019-10-22 15:39 | Discharge Summary ---
General - General Admission date:: 10/20/19 <Paxton Ma - 11/20/19 08:33> 10/20/19 <Mireille Almanza - 10/22/19 15:40> Discharge date: 10/22/19 <CamiMireille - 10/22/19 15:40> HPI HPI: Mr. Rodriguez is a 69-year-old male with a history of HIV diagnosed 9 years ago, chronic kidney insufficiency, GERD, hypertension, hyperlipidemia and depression who presented to [facility] emergency room after experiencing a near syncopal episode at home while standing in his garage. He states he was drinking a beer and smoking a cigarette when this occurred. He had been having intermittent chest discomfort lasting 3 to 4 minutes since his dinner and then experienced severe midsternal chest discomfort associated with nausea, shortness of breath, and diaphoresis. He stated he nearly passed out. His son was there and caught him and kept him awake until the ambulance arrived. He did receive a nitroglycerin which relieved the chest discomfort. He denies having previous chest discomfort. He receives his medical care at [facility]. He did have a negative stress test 2 years ago. He was evaluated in the emergency room. Troponin I's were negative x2. He was admitted with a cardiology consult. <Mireille Almanza - 10/22/19 15:40> Hospital Course Hospital Course: The patient's initial chest x-ray showed nothing acute. He had an echo showing an EF of 55% with grade 1 diastolic dysfunction. He was seen in consultation by cardiology and they recommended a stress test and a 48-hour Holter monitor upon discharge secondary to his syncope. The patient's stress test showed was abnormal, therefore cardiology recommended a heart cath. The patient had a heart cath on 10/21/2019 and had one stent placed. Cardiology recommended Brilinta and aspirin as well as cardiac rehab and avoidance of tobacco products. They wanted to keep the patient for 24 hours for monitoring. He tolerated the procedure well and had no further chest pain or syncopal episodes. He was eating and resting well. Cardiology felt he could be discharged on aspirin 81 mg a day, Brilinta 90 mg twice daily, metoprolol 25 mg every at bedtime, atorvastatin 20 mg daily, and lisinopril 10 mg daily. He will need to follow-up in their office in 1 to 2 weeks. <Mireille Almanza - 10/22/19 15:40> Objective Vital signs: Temp Pulse Resp BP Pulse Ox 97.9 F 72 20 132/80 100 10/22/19 04:00 10/22/19 10:00 10/22/19 10:00 10/22/19 10:00 10/22/19 10:00 <Paxton Ma - 11/20/19 08:33> Temp Pulse Resp BP Pulse Ox 97.9 F 72 20 132/80 100 10/22/19 04:00 10/22/19 10:00 10/22/19 10:00 10/22/19 10:00 10/22/19 10:00 <Mireille Almanza - 10/22/19 15:40> Narrative: - Constitutional no acute distress - *Routine Respiratory Exam Present: CTA bilaterally - *Routine Cardiovascular Exam Present: RRR - *Routine Abdominal Exam Present: soft, normoactive bowel sounds. Absent: tenderness - *Routine Extremities Exam Absent: cyanosis, clubbing, edema - *Routine Skin Exam Present: warm. Absent: rash - *Routine Neurological Exam Present: alert, oriented X3 <Mireille Almanza - 10/22/19 15:40> Results Labs on day of discharge: Labs from last 24 hours 10/22/19 10/22/19 05:53 05:53 WBC 6.6 RBC 3.36 L Hgb 10.9 L Hct 34.0 L MCV 101.2 H MCH 32.4 H MCHC 32.0 RDW 13.1 Plt Count 115 L MPV 8.2 Neut % (Auto) 51.1 Lymph % (Auto) 37.6 [place] % (Auto) 6.1 Eos % (Auto) 4.7 Baso % (Auto) 0.5 Neut # (Auto) 3.4 Lymph # (Auto) 2.5 [place] # (Auto) 0.4 Eos # (Auto) 0.3 Baso # (Auto) 0.0 Sodium 138 Potassium 4.7 Chloride 107 Carbon Dioxide 26 Anion Gap 9.7 BUN 24 H Creatinine 2.02 H Estimated Creat Clear 31 Estimated GFR 33 L Est GFR ( Amer) 40 L Glucose 93 D Calcium 8.3 L <Mireille Almanza - 10/22/19 15:40> DS: Diagnosis - Discharge Diagnosis (1) Angina pectoris Status: Acute (2) Syncope Status: Acute (3) Abnormal cardiovascular stress test Status: Acute (4) GERD (gastroesophageal reflux disease) Status: Chronic (5) Stage 3 chronic kidney disease Status: Chronic (6) HIV disease Status: Chronic (7) Hyperlipidemia Status: Chronic (8) Hypertension Status: Chronic (9) History of deep venous thrombosis Status: Chronic (10) Presence of IVC filter Status: Chronic (11) Stented coronary artery Status: Acute (12) Coronary artery disease Status: Acute <Mireille Almanza - 10/22/19 15:35> (1) Angina pectoris Status: Acute (2) Syncope Status: Acute (3) Abnormal cardiovascular stress test Status: Acute (4) GERD (gastroesophageal reflux disease) Status: Chronic (5) Stage 3 chronic kidney disease Status: Chronic (6) HIV disease Status: Chronic (7) Hyperlipidemia Status: Chronic (8) Hypertension Status: Chronic (9) History of deep venous thrombosis Status: Chronic (10) Presence of IVC filter Status: Chronic (11) Stented coronary artery Status: Chronic (12) Coronary artery disease Status: Chronic <Paxton Ma - 11/20/19 08:33> Discharge Plan - Patient Discharge Instructions ACTIVITY: Continue current activity <Mireille Almanza - 10/22/19 15:40> DIET: cardiac <Mireille Almanza - 10/22/19 15:40> Patient Instructions: DI for Syncope in Adults (Fainting), Cardiac Ca theterization, DI for Kidney Failure, DI for Cardiac Catheterization, DI for Surgical Site Infection, DI for Chest Pain <Paxton Ma - 11/20/19 08:33> Forms: <Paxton Ma - 11/20/19 08:33> - Follow up Plan Follow up with: Jimmy Regan MD [Staff Physician] - 11/01/19 9:20 am <Paxton Ma - 11/20/19 08:33> Disposition: Home, Self-Care <Paxton Ma - 11/20/19 08:33> Home Medications: Home Medications Medication Instructions Recorded Confirmed Type Abacavir Sulfate [Abacavir] 600 mg PO DAILY 10/19/19 11/08/19 History Atorvastatin Calcium [Atorvastatin 20 mg PO HS 10/19/19 11/08/19 History 20mg Tab] Dolutegravir Sodium [Tivicay] 50 mg PO DAILY 10/19/19 11/08/19 History Escitalopram Oxalate 20 mg PO DAILY 10/19/19 11/08/19 History Multivit-Min/FA/Lycopen/Lutein 1 each PO DAILY 10/19/19 11/08/19 History [Men 50 Plus Multivitamin Tab] Nortriptyline HCl 25 mg PO HS 10/19/19 11/08/19 History Tamsulosin HCl [Flomax 0.4mg 0.4 mg PO HS 10/19/19 11/08/19 History capsule] buPROPion HCl [Bupropion Xl] 150 mg PO DAILY 10/19/19 11/08/19 History lamiVUDine [Lamivudine] 150 mg PO DAILY 10/19/19 11/08/19 History lisinopriL [Lisinopril 10mg Tab] 10 mg PO DAILY 10/19/19 11/08/19 History Aspirin [Aspirin 81mg EC Tab] 81 mg PO DAILY #30 tablet. 10/22/19 11/08/19 Rx Metoprolol Succinate [Toprol XL 25 mg PO DAILY #30 tab 10/22/19 11/08/19 Rx 25mg tablet] Ticagrelor [Brilinta 90mg Tablet] 90 mg PO BID #60 tab 10/22/19 11/08/19 Rx pantoprazole 40 mg tablet,delayed 40 mg PO DAILY #30 tab 11/08/19 11/08/19 Rx release <Paxton Ma - 11/20/19 08:33> Prescriptions/Medication Reconciliation: New Ticagrelor [Brilinta 90mg Tablet] 90 mg PO BID #60 tab Metoprolol Succinate [Toprol XL 25mg tablet] 25 mg PO DAILY #30 tab Aspirin [Aspirin 81mg EC Tab] 81 mg PO DAILY #30 tablet. Continued Atorvastatin Calcium [Atorvastatin 20mg Tab] 20 mg PO HS lisinopriL [Lisinopril 10mg Tab] 10 mg PO DAILY Nortriptyline HCl 25 mg PO HS Multivit-Min/FA/Lycopen/Lutein [Men 50 Plus Multivitamin Tab] 1 each PO DAILY lamiVUDine [Lamivudine] 150 mg PO DAILY Escitalopram Oxalate 20 mg PO DAILY Dolutegravir Sodium [Tivicay] 50 mg PO DAILY Abacavir Sulfate [Abacavir] 600 mg PO DAILY Tamsulosin HCl [Flomax 0.4mg capsule] 0.4 mg PO HS buPROPion HCl [Bupropion Xl] 150 mg PO DAILY No Action pantoprazole 40 mg tablet,delayed release 40 mg PO DAILY #30 tab <Paxton Ma - 11/20/19 08:33> - Problem Reconciliation Problems Reviewed?: Yes <Paxton Ma - 11/20/19 08:33> Yes <Mireille Almanza - 10/22/19 15:40> - Additional Information Additional Information: Patient seen and examined. Concur with plan for discharge as outlined above. <Paxton Ma - 11/20/19 08:33>
== END 2019-10-22 11:57 | disposition home or self-care (01) ==
LOC: ER 22:22 → 2ND 22:22
PROVIDERS: ADMIT Family Medicine; ATTEND Family Medicine
CPT/HCPCS: 36415; 71010; 71045; 78452; 80048; 80061; 80076; 83735; 84484; 85025; 85347; 92928; 93005; 93017; 93225; 93226; 93306; 93458; 99152; 99153; 99285; A9502; C1725; C1769; C1876; C9600; G0378; J1644; Q9967

== ENCOUNTER → 2023-02-11 12:09 | Outpatient (CLI) | payer MEDICARE, SELFPAY ==
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
== END ==
PROVIDERS: PCP Family Medicine; Visit Provider Family Medicine
DX: M54.50 Low back pain, unspecified (principal)
CPT/HCPCS: 72100

== ENCOUNTER 2023-08-20 12:04 | Emergency (ER) | payer MEDICARE, SELFPAY ==
[2023-08-20] VITALS (10 sets, daily range): BP systolic 91–135; BP diastolic 54–86; PULSE 83–95; RESP 18–20; TEMP 36.8; O2SAT 96–100; BMI 24.1
--- NOTE | 2023-08-20 12:13 | PC.NURSE ---
[facility]; received and placed in patients chart for MD to review. aware.
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
== END 2023-08-20 16:34 | disposition home or self-care (01) ==
PROVIDERS: Emergency Provider Emergency Medicine
DX: S39.012A Strain of muscle, fascia and tendon of lower back, initial encounter (principal); S76.011A Strain of muscle, fascia and tendon of right hip, initial encounter; V86.95XA Unspecified occupant of 3- or 4- wheeled all-terrain vehicle (ATV) injured in nontraffic accident, initial encounter; I25.119 Atherosclerotic heart disease of native coronary artery with unspecified angina pectoris; I12.9 Hypertensive chronic kidney disease with stage 1 through stage 4 chronic kidney disease, or unspecified chronic kidney disease; N18.32 Chronic kidney disease, stage 3b; K21.9 Gastro-esophageal reflux disease without esophagitis; E78.5 Hyperlipidemia, unspecified; Z21 Asymptomatic human immunodeficiency virus [HIV] infection status
CPT/HCPCS: 72131; 72192; 99285

== ENCOUNTER 2024-03-11 09:59 | Outpatient (RCR) | payer MEDICARE, SELFPAY | END 2024-04-20 18:00 | disposition home or self-care (01) | LOC: PT 09:59 | PROVIDERS: Visit Provider Pain Medicine Interventional Pain Medicine | DX: M51.36 Other intervertebral disc degeneration, lumbar region (principal) | CPT/HCPCS: 97163 ==

== ENCOUNTER 2024-12-15 19:26 | Emergency (ER) | payer MEDICARE, SELFPAY ==
[2024-12-15 19:28] VITALS: BP 157/72; PULSE 64; RESP 18; TEMP 36.8; O2SAT 96; BMI 27.4
--- NOTE | 2024-12-15 20:28 | HMH.EDGENADL ---
Discharge Plan Disposition Patient Disposition: Home, Self-Care Condition: Good Prescriptions Prescriptions: New furosemide [Lasix] 20 mg tablet 20 mg PO DAILY 7 Days Qty: 7 0RF No Action atorvastatin 80 mg tablet 80 mg PO DAILY clopidogrel 75 mg tablet 75 mg PO DAILY pantoprazole 20 mg tablet,delayed release (DR/EC) 20 mg PO DAILY Repatha SureClick 140 mg/mL pen injector 140 mg SQ Q2W sildenafil 100 mg tablet See Rx Instructions PO DAILY PRN Rx Instructions: Take 1/2 tab prior to sex lisinopril 5 mg tablet 5 mg PO DAILY naproxen 500 mg tablet 500 mg PO BID PRN hydrocodone-acetaminophen 5-325 mg tablet 1 tab PO Q8H PRN bupropion HCl 300 mg tablet extended release 24 hr 300 mg PO DAILY nortriptyline 50 mg capsule 50 mg PO DAILY diclofenac sodium 1 % gel 4 g topical BID Qty: 100 3RF Rx Instructions: apply to lower back tamsulosin 0.4 MG capsule 0.4 mg PO HS lamivudine 150 MG tablet 150 mg PO DAILY abacavir 300 MG tablet 600 mg PO DAILY escitalopram oxalate 20 MG tablet 20 mg PO DAILY [id number] 1 EACH tablet 1 each PO DAILY dolutegravir 50 MG tablet 50 mg PO DAILY metoprolol succinate 25 MG tablet extended release 24 hr 25 mg PO DAILY Qty: 30 0RF Referrals Follow up/Referrals: Alicia Rene APRN [Primary Care Provider] - See instructions Activity Restrictions/Add. Instructions Additional Instructions/Restrictions: You were evaluated in the emergency department today. Please follow-up with your primary care provider over the next 72 hours. 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 Return to the emergency department for new or worsening symptoms Clinical Impressions Clinical Impression: Bilateral edema of lower extremity Instructions Patient Instructions: DI for Dependent Edema, DI for Peripheral Edema -- Bilateral Print Language Print Language: Ethiopian Discharge ED Provider: Tanika Romero General Adult HPI <EILEEN Karimi - Last Filed: 12/15/24 21:14> General Chief complaint: PAIN Stated complaint: right leg pain foot and ankle Time Seen by Provider: 12/15/24 20:26 Mode of Arrival: Ambulatory Source of Information: Patient Limitations: No Limitations Description of Symptoms (Recalled from ER Triage Doc. by RN): pt to ED with c/o ble edema, worse on the right, X2 days. History of Present Illness HPI narrative: ReportsPatient presents for right lower extremity edema. Patient states that he has unexplained right lower extremity edema has been worse over the last 2 days. He is a very poor historian and does not know his medications but does have a history of coronary artery disease status post PCI with stents, hyperlipidemia, hypertension, stage III kidney disease, GERD and a reported history of HIV in his chart. He is on abacavir evolocumab lamivudine dolutegravir for HIV, as well as atorvastatin bupropion Plavix escitalopram metoprolol nortriptyline pantoprazole tamsulosin according to his medication list he denies any chest pain shortness of breath dyspnea fever chills hemoptysis hematochezia melena nausea vomiting diarrhea. Related Data Home Medications ?Medication ?Instructions ?Recorded ?Confirmed abacavir 300 mg tablet 600 mg PO DAILY HIV 10/19/19 06/02/23 dolutegravir 50 mg tablet 50 mg PO DAILY HIV 10/19/19 06/02/23 escitalopram oxalate 20 mg tablet 20 mg PO DAILY Depression 10/19/19 06/02/23 lamivudine 150 mg tablet 150 mg PO DAILY HIV 10/19/19 06/02/23 [id number]-[id number] 300 mcg-K 60 1 each PO DAILY Diet supplement 10/19/19 06/02/23 mcg-lycop 600 mcg-lutein 300 mcg tablet tamsulosin 0.4 mg capsule 0.4 mg PO HS prostate 10/19/19 06/02/23 atorvastatin 80 mg tablet 80 mg PO DAILY 02/11/23 06/02/23 clopidogrel 75 mg tablet 75 mg PO DAILY 02/11/23 06/02/23 evolocumab 140 mg/mL subcutaneous 140 mg SQ Q2W 02/11/23 06/02/23 pen injector (Tra Nixon) pantoprazole 20 mg tablet,delayed 20 mg PO DAILY 02/11/23 06/02/23 release sildenafil 100 mg tablet See Rx Instructions PO DAILY PRN 02/11/23 06/02/23 naproxen 500 mg tablet 500 mg PO BID PRN 03/10/23 06/02/23 bupropion HCl 300 mg 24 hr tablet, 300 mg PO DAILY Depression 04/15/23 06/02/23 extended release lisinopril 5 mg tablet 5 mg PO DAILY HTN 04/15/23 06/02/23 nortriptyline 50 mg capsule 50 mg PO DAILY 04/15/23 06/02/23 hydrocodone 5 mg-acetaminophen 325 1 tab PO Q8H PRN 06/02/23 06/02/23 mg tablet Previous Rx's ?Medication ?Instructions ?Recorded metoprolol succinate 25 mg 25 mg PO DAILY #30 tabs 10/22/19 tablet,extended release 24 hr diclofenac sodium 1 % topical gel 4 g topical BID #100 grams 02/12/23 furosemide 20 mg tablet (Lasix) 20 mg PO DAILY 1 week #7 tabs 12/15/24 Allergies Allergy/AdvReac Type Severity Reaction Status Date / Time morphine Allergy Verified 06/02/23 08:41 [facility] <EILEEN Karimi - Last Filed: 12/15/24 21:14> [facility] Disclaimer: The information contained in this section may have been updated after the patient was seen, as this information can be updated by other users. Medical History Abnormal cardiovascular stress test MARGARET (acute kidney injury) Angina pectoris Chest pain Coronary artery disease GERD (gastroesophageal reflux disease) Heat exposure History of deep venous thrombosis HIV disease Hyperlipidemia Hypertension Presence of IVC filter Stage 3 chronic kidney disease Syncope Surgical History Stented coronary artery Family History Mother Stroke Social History Smoking Status: Never smoker alcohol intake: former substance use type: marijuana current occupational status: retired Travel in the last 8 weeks: None household members: spouse and children housing: house caffeine: Yes Have you lived/traveled outside [place] in past 30 days?: No Contact w/someone who lives/traveled outside US past 30 days?: No Exposure to someone with infectious disease in past 14 days?: No Do you have a fever (greater than 100.4 F or 38 C)?: No Have you tested positive for COVID-19: No Exposed to someone with COVID-19 in past 14 days?: No Do you have a sore throat?: No Do you have a cough?: No Do you have any weakness?: No Do you have any diarrhea?: No Are you experiencing any unusual bleeding?: No Do you have any muscle aches/pain?: No Do you have any abdominal pain?: No Are you experiencing loss of taste or smell?: No Other Medical History Have you received the Flu Vaccine for this season: No Have you received the Pneumonia Vaccine: Yes <EILEEN Karimi - Last Filed: 12/15/24 21:14> ROS Obtained: Yes Systems reviewed as appropriate & no additional complaints except as documented Physical Exam <EILEEN Karimi - Last Filed: 12/15/24 21:14> General General appearance: alert and in no apparent distress Respiratory Respiratory exam: Present normal lung sounds bilaterally Cardiovascular Cardiovascular exam: Present regular rate Neurological Exam Neurological exam: Present alert and oriented X3 Medical Decision Making <EILEEN Karimi - Last Filed: 12/15/24 21:14> Medical Records Medical records reviewed: Yes I reviewed the patient's medical records. Screening: Per USPSTF and CDC recommendations, given the prevalence of disease in our region, it is our hospital?s policy to screen for HIV and viral Hepatitis for all patients aged 18 and over and those with ongoing risk factors. [place] Inquiry Pt receiving controlled substance: No Vital Signs: 12/15/24 19:28 12/15/24 22:46 Temperature 98.2 F 98.1 F Temperature Source Oral Pulse Rate 62 Pulse Rate [Right Radial] 64 Respiratory Rate 18 18 Blood Pressure 167/78 H Blood Pressure [Right Arm] 157/72 H Blood Pressure Mean [Right Arm] 100 Blood Pressure Source [Right Arm] Automatic Cuff Blood Pressure Position [Right Arm] Sitting 02 Sat by Pulse Oximetry 96 Oxygen Delivery Method Room Air Lab Data Lab results reviewed: Yes I reviewed the patient's lab results. Lab Results 12/15/24 21:23: WBC 8.1, RBC 3.11 L, Hgb 9.9 L, Hct 30.3 L, MCV 97.4 H, MCH 31.8 H, MCHC 32.7, RDW 13.4, Plt Count 179, MPV 9.5, Neut % (Auto) 62.2, Lymph % (Auto) 25.6, [place] % (Auto) 7.7, Eos % (Auto) 3.7, Baso % (Auto) 0.4, Neut # (Auto) 5.0, Lymph # (Auto) 2.1, [place] # (Auto) 0.6, Eos # (Auto) 0.3, Baso # (Auto) 0.0, D-Dimer < 0.25, Sodium 139, Potassium 4.8, Chloride 103, Carbon Dioxide 30, Anion Gap 10.8, BUN 21 H, Creatinine 1.80 H, Estimated Creat Clear 39, Estimated GFR 37 L, Est GFR ( Amer) 45 L, Glucose 99, Calcium 8.8, C-Reactive Protein 11.3 H, NT-Pro-B Natriuret Pep 1120 H, HCV Ab RL w/Rflx PCR Qn Negative, HIV Ag/Ab Combo Qual Positive 12/15/24 23:46: HIV (1&2) Ag & Ab Conf Positive 12/15/24 21:23 12/15/24 21:23 Orders (Tests/Meds): ED MEDICATIONS Discontinued Medications Generic Name Dose Route Start Last Admin Trade Name Freq PRN Reason Stop Dose Admin Furosemide 20 mg 12/15/24 22:45 12/15/24 22:48 Furosemide 40 Mg Tablet PO 12/15/24 22:46 20 mg ONCE ONE Administration ORDERS Category Date Time Status BMP [Basic Metabolic Panel] Stat Lab 12/15/24 21:23 Completed BNP [NT Pro Brain Natriuretic Pep.] Stat Lab 12/15/24 21:23 Completed CBC w/Auto Diff [Complete Blood Count Auto Diff] Stat Lab 12/15/24 21:23 Completed CRP [C-Reactive Protein] Stat Lab 12/15/24 21:23 Completed D-Dimer Stat Lab 12/15/24 21:23 Completed ESR [Erythrocyte Sedimentation Rate] Stat Lab 12/15/24 21:23 Received HIV Combo Retest Routine Lab 12/15/24 23:46 Completed HIV Combo Stat Lab 12/15/24 21:23 Completed Hepatitis C Ab Qual. W/ RFX Stat Lab 12/15/24 21:23 Completed Medical Decision Narrative: In summary patient is a 74-year-old male who presents to the emergency department for evaluation of right lower extremity edema. Patient is hemodynamically stable with a blood pressure 157/72 pulse 64 respiratory rate is 18 satting at 96% on room air upon arrival, afebrile at 98.2. Physical exam is remarkable for 3+ pitting edema to the level of the knee on the right and 2+ pitting edema on the left. The right lower extremity is much larger than the left. There is however no evidence of cellulitis induration palpable cords and he has palpable DP and PT in the bilateral lower extremities. Patient does have a small noninfected abrasion to his right anterior tibia that shows no ecchymosis that is been there for 2 to 3 days according to the patient.. Differential diagnosis includes venous insufficiency versus peripheral vascular disease versus DVT etc. Initial workup ordered and pending at the time of handoff to Dr. Romero at 2100 hrs. <Tanika Romero, DO - Last Filed: 12/15/24 23:51> Vital Signs: 12/15/24 19:28 12/15/24 22:46 Temperature 98.2 F 98.1 F Temperature Source Oral Pulse Rate 62 Pulse Rate [Right Radial] 64 Respiratory Rate 18 18 Blood Pressure 167/78 H Blood Pressure [Right Arm] 157/72 H Blood Pressure Mean [Right Arm] 100 Blood Pressure Source [Right Arm] Automatic Cuff Blood Pressure Position [Right Arm] Sitting 02 Sat by Pulse Oximetry 96 Oxygen Delivery Method Room Air Lab Data Lab Results 12/15/24 21:23: WBC 8.1, RBC 3.11 L, Hgb 9.9 L, Hct 30.3 L, MCV 97.4 H, MCH 31.8 H, MCHC 32.7, RDW 13.4, Plt Count 179, MPV 9.5, Neut % (Auto) 62.2, Lymph % (Auto) 25.6, [place] % (Auto) 7.7, Eos % (Auto) 3.7, Baso % (Auto) 0.4, Neut # (Auto) 5.0, Lymph # (Auto) 2.1, [place] # (Auto) 0.6, Eos # (Auto) 0.3, Baso # (Auto) 0.0, D-Dimer < 0.25, Sodium 139, Potassium 4.8, Chloride 103, Carbon Dioxide 30, Anion Gap 10.8, BUN 21 H, Creatinine 1.80 H, Estimated Creat Clear 39, Estimated GFR 37 L, Est GFR ( Amer) 45 L, Glucose 99, Calcium 8.8, C-Reactive Protein 11.3 H, NT-Pro-B Natriuret Pep 1120 H, HCV Ab RL w/Rflx PCR Qn Negative, HIV Ag/Ab Combo Qual Positive 12/15/24 23:46: HIV (1&2) Ag & Ab Conf Positive Orders (Tests/Meds): ED MEDICATIONS Discontinued Medications Generic Name Dose Route Start Last Admin Trade Name Freq PRN Reason Stop Dose Admin Furosemide 20 mg 12/15/24 22:45 12/15/24 22:48 Furosemide 40 Mg Tablet PO 12/15/24 22:46 20 mg ONCE ONE Administration ORDERS Category Date Time Status BMP [Basic Metabolic Panel] Stat Lab 12/15/24 21:23 Completed BNP [NT Pro Brain Natriuretic Pep.] Stat Lab 12/15/24 21:23 Completed CBC w/Auto Diff [Complete Blood Count Auto Diff] Stat Lab 12/15/24 21:23 Completed CRP [C-Reactive Protein] Stat Lab 12/15/24 21:23 Completed D-Dimer Stat Lab 12/15/24 21:23 Completed ESR [Erythrocyte Sedimentation Rate] Stat Lab 12/15/24 21:23 Received HIV Combo Retest Routine Lab 12/15/24 23:46 Completed HIV Combo Stat Lab 12/15/24 21:23 Completed Hepatitis C Ab Qual. W/ RFX Stat Lab 12/15/24 21:23 Completed Medical Decision Narrative: In summary patient is a 74-year-old male who presents to the emergency department for evaluation of right lower extremity edema. Patient is hemodynamically stable with a blood pressure 157/72 pulse 64 respiratory rate is 18 satting at 96% on room air upon arrival, afebrile at 98.2. Physical exam is remarkable for 3+ pitting edema to the level of the knee on the right and 2+ pitting edema on the left. The right lower extremity is much larger than the left. There is however no evidence of cellulitis induration palpable cords and he has palpable DP and PT in the bilateral lower extremities. Patient does have a small noninfected abrasion to his right anterior tibia that shows no ecchymosis that is been there for 2 to 3 days according to the patient.. Differential diagnosis includes venous insufficiency versus peripheral vascular disease versus DVT etc. Initial workup ordered and pending at the time of handoff to Dr. Romero at 2100 hrs. DO Nick: I was consulted by the SUSAN, and we discussed the complexity of the problems being addressed. I approved the treatment and management plan for this patient's care in the emergency department, thus performing a substantive portion of the medical decision making. Labs are reassuring with negative D-dimer, creatinine is around his baseline. His BNP is a little bit elevated. ESR is mildly elevated, but CRP is not significantly elevated. This is nonspecific. He has no significant leukocytosis at this time. On clinical exam, it looks like he has dependent edema in the bilateral lower extremities, he notes chronic issues with his right lower extremity so I suspect this may be why it is worse in this leg. Given his BNP is elevated, I am going to give him a week of 20 mg of oral Lasix in addition to his home medications. Ultimately, I gave him instructions for dependent edema and instructions for close follow-up with his primary care provider. He was given strict return precautions and was discharged after all questions were answered. DVT ultrasound was considered, however given negative D-dimer and reassuring exam it was felt this was not indicated as it would not slubber frame changer. Critical Care <EILEEN Karimi - Last Filed: 12/15/24 21:14> Critical Care Time Critical Care Time: No
[2024-12-15 21:33] LABS: Basophils % 0.4 % (0.1-2.0); Eosinophils # 0.3 K/mm3 (0.0-0.4); Eosinophils % 3.7 % (0.1-12.0); Hematocrit 30.3 % (42.0-52.0); Hemoglobin 9.9 g/dL (14.1-18.0); Lymphocytes # 2.1 K/mm3 (0.7-4.5); Lymphocytes % 25.6 % (10-50); Mean Corpuscular HGB Conc 32.7 g/dL (31.8-35.4); Mean Corpuscular Hemoglobin 31.8 pg (27.0-31.2); Mean Corpuscular Volume 97.4 fl (80-94); Mean Platelet Volume 9.5 fl (7.4-10.4); Monocytes # 0.6 K/mm3 (0.1-1.0); Monocytes % 7.7 % (1.7-9.3); Neutrophils % 62.2 % (37.0-80.0); Platelet Count 179 K/mm3 (142-424); Red Blood Count 3.11 M/mm3 (4.60-6.20); Red Cell Distribution Width 13.4 % (11.5-17.5); White Blood Count 8.1 K/mm3 (4.8-10.8)
[2024-12-15 21:47] LABS: Anion Gap 10.8 mEq/L (5-15); Blood Urea Nitrogen 21 mg/dl (9-20); Calcium 8.8 mg/dl (8.4-10.2); Carbon Dioxide 30 mmol/L (22.0-30.0); Chloride 103 mmol/L (98-107); Creatinine Clearance Estimated 39 mL/min (50-200); Estimated Glomerular Filt Rate 37 ml/min (>60); GFR (African American) 45 ML/MIN (>60); Glucose 99 mg/dl (74-100); Potassium 4.8 mmoL/L (3.5-5.1); Sodium 139 mmol/L (136-145)
[2024-12-15 21:52] LABS: C-Reactive Protein 11.3 mg/L (0-4)
[2024-12-15 21:53] LABS: D-Dimer < 0.25 ug/mL (0.0-0.5)
[2024-12-15 21:59] LABS: NT Pro Brain Natriuretic Pep. 1120 pg/mL (0-125)
[2024-12-15 22:44] LABS: HIV Combo POSITIVE (Negative)
[2024-12-15 22:46] VITALS: BP 167/78; PULSE 62; RESP 18; TEMP 36.7; O2SAT 97
[2024-12-15] MEDS: FUROSEMIDE 40 MG TABLET 20 MG PO (22:48)
[2024-12-15 22:52] LABS: Hepatitis C Ab Qual. W/ RFX NEGATIVE (Negative)
[2024-12-15 23:47] LABS: HIV Combo Retest POSITIVE (Negative)
[2024-12-16 00:42] LABS: Erythrocyte Sedimentation Rate 75 mm/hr (0-20)
[2024-12-18 13:09] LABS: HIV 1 Ab Reactive (Non Reactive); HIV 2 Ab Non Reactive (Non Reactive); HIV Screen 4th Generation wRfx Preliminary Reactive (Non Reactive); HIV-1 Ab CHG YES; HIV-2 Ab CHG YES; Interpretation: HIV-1 Positive (.)
== END 2024-12-15 22:52 | disposition home or self-care (01) ==
PROVIDERS: Physician Assistant; Emergency Provider Emergency Medicine; PCP Nurse Practitioner
DX: R60.0 Localized edema (principal)
CPT/HCPCS: 80048; 83880; 85025; 85378; 85651; 86140; 86701; 86702; 86703; 86803; 87389; 99283; G0432

== ENCOUNTER 2025-07-06 11:20 | Emergency (ER) | payer MEDICARE, SELFPAY ==
--- OUTSIDE RECORDS SUMMARY | 2025-05-09 12:58 | XMS_ITS | Encounter Summary ---
Author Organization [facility] Address [address] [place] [address] Care Team Providers Care Supervisor Sandblaster Name Role Phone Magalis Ruiz Unavailable Unavailable Kayleigh Del Cid MD Primary Care Provider [phone] Imtiaz Caraballo MD Unavailable Unavailab Scottie Davenport MD Unavailable Reason for Visit * Reason Comments Fall Encounter Details Date Type Department Care Team (Late st Contact Info) Description 05/09/2025 12:58 PM EDT - 05/09/2025 8:27 PM EDT Emergency [facility] [address] [place] [address] Jesus Archer MD [address] [place] [phone] Katie Richard MD [address] [place] [phone] Fall, initial encounter (Primary Dx) Discharge Disposition: Home or Self Care Social History Tobacco Use Types Packs/Day Years Used Date Smoking Tobacco: Former Cigarettes Q uit: 1984 Passive Smoke Exposure: Current Smokeless Tobacco: Never Alcohol Use Standard Drinks/Week Comments Not Currently 0 (1 standard drink = 0.6 oz pur e alcohol) quit March 2021 PHQ-2 Answer Date Recorded Patient Health Questionnaire-2 Score 0 02/07/2025 PHQ-9 Answer Date Recorded Patient Health Questionnaire-9 Score 0 02/07/2025 PHQ-2A Answer Date Recorded Patient Health Questionnaire-2 Score 0 11/10/2023 Sex and Gender Information Value Date Recorded Sex Assigned at Male 12/03/2023 8:18 AM EST Legal Sex Male 8:51 PM EDT Gender Identity Male 12/03/2023 8:18 AM EST Sexual Orientation Not on file documented as of this encounter Last Filed Vital Signs Vital Sign Reading Time Taken Comments Blood Pressure 130/83 05/09/2025 8:19 PM EDT Pulse 78 05/09/2025 8:19 PM EDT Temperature 36.4 C (97.6 F) 05/09/2025 8:19 PM EDT Respiratory Rate 18 05/09/2025 8:19 PM EDT Oxygen Saturation 97% 05/09/2025 8:19 PM EDT Inhaled Oxygen Concentration - - Weight 69.5 kg (153 lb 3.5 oz) 05/09/2025 1:04 P M EDT Height 165.1 cm (5' 5 ) 05/09/2025 1:04 PM EDT Body Mass Index 25.5 05/09/2025 1:04 PM EDT documented in this encounter Functional Status * Calculated C-SSRS Risk Score (Lifetime/Recent) Answer Date of Assessment Author No Risk Indicated 05/09/2025 7:16 PM EDT Page Qiu RN * Question Answer Date of Assessment Author 1. Wish to be (Past 1 Month) No 025 7:16 PM EDT Page Qiu RN 2. Non-Specific Active Suici juliocesar Thoughts (Past 1 Month) No 05/09/2025 7:16 PM EDT Camryn Qiu RN 6. Suicidal Behavior (Lifetime) No 7:16 PM EDT Page Qiu RN documented as of this encounter Discharge Instructions * Discharge Instructions* Skye Dennison MD - 05/09/2025 8:01 PM EDT You have been seen today in the ER after your fall. You have no injuries. Return to the ER for new or worsening symptoms. documented in this encounter Medications at Time of Discharge acetaminophen (Tylenol) 325 MG tabletIndications:HIV disease (CMS/HCC) TAKE 1-2 TABLETS BY MOUTH EVERY 6 HOURS NEEDED FOR PAIN 100 tablet 2 05/06/20 25 diclofenac (Voltaren) 1 % topical gelIndications:Arthritis Place 1-2 g on the skin if needed (pain). Use sparingly on affected area 150 g 11/12/20 24 Emollient (Eucerin Daily Hydration) lotionIndications:Dry skin APPLY DAILY TO ENTIRE BODY AFTER GETTING OUT OF SHOWER 500 mL 11/12/20 24 escitalopram (Lexapro) 20 MG tabletIndications:Depres shabana, unspecified depression type TAKE 1 TABLET BY MOUTH EVERY DAY 90 tablet 3 11/02/20 24 famotidine (Pepcid) 20 MG tabletIndications:Gastro esophageal reflux disease without esophagitis Take 1 tablet (20 mg) by mouth 2 (two) times a day as needed for heartburn. 60 tablet 5 02/08/20 25 gabapentin (Neurontin) 300 MG capsule 11/12/20 24 HYDROcodone-acetaminophe n (Lamona) 7.5-325 MG tablet Take 1 tablet (7.5 mg of hydrocodone) by mouth in the morning and 1 tablet (7.5 mg of hydrocodone) before bedtime. Lidocaine Pain Relief 4 % patch APPLY ONE PATCH TO AFFECTED AREA FOR 12 HOURS THEN REMOVE AND LEAVE OFF FOR 12 HOURS. USE NEEDED FOR PAIN. 30 patch 1 11/23/20 24 loperamide (Imodium) 2 MG capsule 02/05/20 22 methylPREDNISolone acetate (DEPO-Medrol) 80 MG/ML injection 09/01/20 24 Multiple Vitamins-Minerals (One Daily Mens Health) tablet TAKE 1 TABLET BY MOUTH DAILY AT LEAST 6 HOURS APART FORM DOLUTEGRAVIR 90 tablet 3 01/20/20 25 nortriptyline (Pamelor) 50 MG capsuleIndications:Depre ssion, unspecified depression type,Neuropathy Take 1 capsule (50 mg) by mouth every night. 90 capsule 3 11/12/20 24 pantoprazole (ProtoNix) 20 MG EC tabletIndications:Gastro esophageal reflux disease without esophagitis Take 1 tablet (20 mg) by mouth 1 (one) time each day before breakfast. Do not crush, chew, or split. 90 tablet 3 11/12/20 24 pregabalin (Lyrica) 50 MG capsuleIndications:Pain of right calf Take 1 capsule (50 mg) by mouth 2 (two) times a day if needed (sciatica pain). 60 capsule 2 09/17/20 24 spironolactone-hydroCHLO ROthiazide (Aldactazide) 25-25 MG tablet Take 1 tablet (25 mg) by mouth daily. 30 tablet 11 02/22/20 25 tadalafil (Cialis) 10 MG tabletIndications:Vascul ogenic erectile dysfunction, unspecified vasculogenic erectile dysfunction type Take 1 tablet 30-60 min before sex 15 tablet 5 11/12/20 24 tamsulosin (Flomax) 0.4 MG 24 hr capsuleIndications:Benig n prostatic hyperplasia without lower urinary tract symptoms Take 1 capsule (0.4 mg) by mouth every night. 90 capsule 3 11/12/20 24 clopidogrel (Plavix) 75 MG tabletIndications:Arteri osclerosis of coronary artery Take 1 tablet (75 mg) by mouth 1 (one) time each day. 90 tablet 3 11/12/20 24 Evolocumab (Repatha SureClick) 140 MG/ML solution auto-injector Inject 1 mL (140 mg) under the skin every 14 (fourteen) days. Inject 140mg every two weeks subcutaneously. 6 mL 3 10/04/20 24 triamcinolone acetonide (Kenalog-40) 40 MG/ML injection IM x 1 dose 04/01/20 25 abacavir (Ziagen) 300 MG tabletIndications:HIV disease (CMS/HCC) Take 2 tablets (600 mg) by mouth in the morning. 60 tablet 11 02/08/20 25 025 atorvastatin (Lipitor) 80 MG tabletIndications:Pure hypercholesterolemia TAKE 1 TABLET BY MOUTH EVERY NIGHT AT BEDTIME 90 tablet 3 11/02/20 24 025 buPROPion XL (Wellbutrin XL) 300 MG 24 hr tabletIndications:Depres shabana, unspecified depression type TAKE 1 TABLET BY MOUTH EVERY DAY 90 tablet 3 08/25/20 24 025 dolutegravir (Tivicay) 50 MG tabletIndications:HIV disease (CMS/HCC) Take 1 tablet (50 mg) by mouth in the morning. 30 tablet 11 03/10/ 025 lamiVUDine (Epivir) 150 MG tabletIndications:HIV disease (CMS/HCC) Take 1 tablet (150 mg) by mouth in the morning. 30 tablet 11 02/08/20 25 025 metoprolol succinate XL (Toprol-XL) 50 MG 24 hr tabletIndications:Arteri osclerosis of coronary artery Take 1 tablet (50 mg) by mouth 1 (one) time each day. 90 tablet 3 08/17/20 24 025 documented as of this encounter Miscellaneous Notes * Progress Notes - Hood Hamilton RN - 05/09/2025 6:04 PM EDT Rk Rodriguez Chief Complaint Patient presents with Fall Geriatric Screening Geriatric TRST alert for a pt score of 3 on the questionnaire. RNCM spoke with patient at bedside to discuss safety measures. Patient is pending clinical course for treatment. Pt uses a single point cane and lives with his . He reports several falls in the last 3 months and being IND/MIN assistat home with daily care. Geriatric Triage Risk Screening Tool (TRST) Cognitive impairment: No Five or more medications: Yes Difficulty walking/ transferring, or recent falls: Yes ED use in the last 30 days or hospitalization in previous 90 days: No Lives alone and/ or no caregiver: Yes ED staff concerns: No TRST Assessment Total: 3 Discussed fall safety measures for the home such as removing throw rugs, padding corners of mcguire/furniture, grab bars, etc. Discussed importance of regular PCP care and if they have an upcoming appts with PCP, access to prescription concerns, in-home care and medical transportation. Case management will continue to follow as needed and able to offer additional resources at request. Mavis Hamilton ED-infectious disease technician * ED Provider Notes - Skye Dennison MD - 05/09/2025 12:58 PM EDT Images from the original note were not included. - HPI Chief Complaint Patient presents with Fall HPI Patient is a 74 yo M with CAD s/p MERLINE to LAD in 2019 (cathed based on abnormal stress test, left common femoral vein DVT in 2009 s/p IVC filter at that time (no AC due to thrombocytopenia), CKD, HTN,HLD, HIV on HAART, h/o anal LGSIL and OA presenting today after mechanical fall. Patient states he is taking a blood thinner for his heart but cannot recall which one. He states his knees buckled andhe fell down striking the back of his head. He denies symptoms before the fall. Currently complaining of back pain, non-radiating. Denies THOMSON, vision changes, neck pain, N/V, abdominal pain, numbness or tingling to the extremities. Patient History Past Medical History[1] Surgical History[2] Family History[3] Social History[4] Allergies: Allergies[5] Physical Exam ED Triage Vitals [05/09/25 1304] Temp Heart Rate Resp BP (!) 36.2 ??C (97.2 ??F) 63 20 127/85 SpO2 Temp Source Heart Rate Source Patient Position 99 % Oral -- Sitting BP Location FiO2 (%) Right arm -- Physical Exam Constitutional: General: He is not in acute distress. Appearance: He is not ill-appearing or toxic-appearing. HENT: Head: Normocephalic and atraumatic. Nose: Nose normal. Mouth/Throat: Mouth: Mucous membranes are moist. Pharynx: Oropharynx is clear. Eyes: Conjunctiva/sclera: Conjunctivae normal. Pupils: Pupils are equal, round, and reactive to light. Cardiovascular: Rate and Rhythm: Normal rate and regular rhythm. Pulses: Normal pulses. Pulmonary: Effort: Pulmonary effort is normal. Breath sounds: Normal breath sounds. Chest: Chest wall: No tenderness. Abdominal: General: Abdomen is flat. There is no distension. Palpations: Abdomen is soft. Tenderness: There is no abdominal tenderness. Musculoskeletal: General: No swelling, tenderness, deformity or signs of injury. Normal range of motion. Cervical back: Neck supple. No tenderness. Skin: General: Skin is warm and dry. Capillary Refill: Capillary refill takes less than 2 seconds. Neurological: General: No focal deficit present. Mental Status: He is alert and oriented to person, place, and time. Sensory: No sensory deficit. EASI ?? Total Score: 0 Anca Coma Scale Score: 15 Mini Nutritional Screening Score : 14 TRST Assessment Total: 3 ED Course & MDM - Assessment: 74 y.o. male presents to ED with complaint of fall. It should be noted that the chronic conditions includes CAD, CKD, HTN, HLD, HIV on HAARTwhich currently is not at goal therapy. This complicates the clinical picture because it Comorbidities: may be exacerbating symptoms, increases the amount and complexity of data to be reviewed, complicates the clinical workup, and increases the risk for morbidity Differential Diagnosis: back fracture, sprain, intracranial injury, among other. In order to fully explore the differential diagnosis the following treatments and tests were ordered: All Other Orders Ordered Status Ordering Provider 05/09/25 1506 XR Elbow Left 3+ Views Once Final result SKYE DENNISON Abner 05/09/25 1506 XR Knee Left 3 Views Once Final result SKYE DENNISON 05/09/25 1506 XR Knee Right 3 Views Once Final result SKYE DENNISON 05/09/[address] Cervical Spine wo IV Contrast Once Final result SKYE DENNISON Abner 05/09/[address] Thoracic Spine wo IV Contrast Once Final result SKYE DENNISON Abner 05/09/[address] Lumbar Spine wo IV Contrast Once Final result SKYE DENNISON Abner 05/09/[address] Bony Pelvis Once Comments: Without Contrast Please include 3D Reconstruction with Tumble and Spin. Please include 5 view Pelvis Ghost Recon. Final result SKYE DENNISON W 05/09/25 1423 Hepatitis C Antibody - ED W/Reflex to HCV Quant PCR Once Final result SKYE DENNISON Abner 05/09/25 1423 CBC w/diff STAT Final result SKYE DENNISON W 05/09/25 1423 Anti Xa Level Unfractionated Heparin STAT Final result SKYE DENNISON 05/09/25 1423 PT-INR STAT Final result SKYE DENNISON W 05/09/25 1423 CMP STAT Final result SKYE DENNISON 05/09/[address] Head wo IV Contrast Once Final result SKYE DENNISON 05/09/25 1323 POCT glucose meter PROCEDURE ONCE Final result POCT, GENERIC PROVIDER ED Course as of 05/09/252017May 09, 2025 1402 Vitals upon arrival remarkable for BP of 104/61. [JG] 1805 CT of cervical, thoracic, lumbar spine without acute abnormalities. [JG] 1806 CT head without acute intracranial abnormalities, no signs of bleeding or trauma. [JG] 1806 Plain films of left elbow and bilateral knees without acute fracture, dislocation, effusion. [JG] 2017 Patient was able to ambulate prior to discharge. Steady gait. [JG] ED Course User Index [JG] Skye Dennison MD Clinical Impressions as of 05/09/25 2018 Fall, initial encounter Social Determinates of Health Risks (including Economic Stability, Education and level of understanding, Healthcare access and quality and concerning social factors): None identified on this visit Ultimately, this patient was Was discharged Home (Discharge) The encounter diagnosis was Fall, initial encounter. . Patient was counseled on the diagnoses. Discharge medications if any are listed below. Listed medications are thought be either curative for listed diagnoses or will help control ongoing symptoms. Patient is requested to follow up with Patient's Primary Care Provider in order to obtain routine follow-up. Instructions on follow up as well as precautions to return to the ER provided verbally by the EM provider, as well as written in patients discharge education packet. ED Prescriptions None Discharge Instructions You have been seen today in the ER after your fall. You have no injuries. Return to the ER for new or worsening symptoms. 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 Benign prostatic hyperplasia without lower urinary tract symptoms Enlarged prostate without lower urinary tract symptoms (luts) Chronic kidney disease 09/01/2024 Conversions - Other Histoplasmosis Conversions - Other Hypotension Essential hypertension 07/18/2015 Gastro-esophageal reflux disease without esophagitis Gastro-esophageal reflux disease without esophagitis Hemorrhage of anus and rectum Fresh blood passed per rectum HIV disease ([facility]) Hyperlipidemia Knee pain Leg pain Low back pain Low back pain Low grade squamous intraepithelial lesion on cytologic smear of anus (LGSIL) Pap smear of anus with LGSIL Male erectile dysfunction, unspecified ED (erectile dysfunction) Myocardial infarction ([facility]) 10/22/2019 Other disorders of iron metabolism Iron overload Other fatigue Other fatigue Other intervertebral disc degeneration, lumbar region Degenerative disc disease, lumbar Other shoulder lesions, left shoulder Tendinitis of left rotator cuff Personal history of colonic polyps History of colon polyps Personal history of other diseases of the circulatory system History of essential hypertension Personal history of other diseases of the digestive system History of constipation Personal history of other endocrine, nutritional and metabolic disease History of hyperkalemia Personal history of other endocrine, nutritional and metabolic disease History of hypokalemia Personal history of other infectious and parasitic diseases History of secondary syphilis of skin Personal history of other specified conditions History of chest pain Rash and other nonspecific skin eruption Rash Renal osteodystrophy Renal osteodystrophy Resistance to unspecified antimicrobial drugs Infection with drug resistant microorganisms Syphilis 02/14/2016 Tinea unguium Onychomycosis Unilateral primary osteoarthritis, unspecified knee Osteoarthritis of knee Unspecified disorder of synovium and tendon, unspecified upper arm Biceps tendinopathy Unspecified hemorrhoids Bleeding hemorrhoids Vitamin D deficiency, unspecified Mild vitamin D deficiency [2] Past Surgical History: Procedure Laterality Date ARTERIAL STENT PLACEMENT N/A Arterial stent placement from [employer] HEMORRHOID SURGERY N/A Hemorrhoidectomy from [employer] [3] Family History Problem Relation Name Age of Onset Stroke Mother Heart attack Father [4] Tobacco Use Smoking status: Former Current packs/day: 0.00 Types: Cigarettes Quit date: 1984 Years since quittin.4 Passive exposure: Current Smokeless tobacco: Never Vaping Use Vaping status: Never Used Substance Use Topics Alcohol use: Not Currently Comment: quit March 2021 Drug use: Yes Types: Marijuana Comment: Drug use: No illicit drug use [5] Allergies Allergen Reactions Morphine Other - please document in the comment field and Nausea Skye Dennison MD Resident 05/09/25 2018 Cosigned by Jesus Archer MD at 05/10/2025 8:05 AM EDT Associated attestation - Jesus Archer MD - 05/10/2025 8:05 AM EDT I saw and evaluated the patient with the resident/fellow. I discussed the case with the resident/fellow and agree with the findings and plan as documented. This patient was turned over at shift change in stable condition with his workup in progress and with his disposition pending. * ED Triage Notes - Fidencio Zapata RN - 05/09/2025 12:58 PM EDT Pt presents after a fall from standing. Pt stated his knees bucked and he fell backwards hitting the back of his head and left elbow. -LOC +BT. GCS 15. Pt denies pain anywhere at this time. documented in this encounter Plan of Treatment Upcoming Encounters Date Type Department Care Team (Late st Contact Info) Description 08/31/2025 1:00 PM EDT Office Visit [address] [phone] Mike Harley PA [address] [place] [address] 11/16/2025 9:30 AM EST Office Visit [address] [phone] Scottie Solo MD [address] [place] [address] 11/16/2025 10:30 AM EST Office Visit [address] [phone] Kayleigh Del Cid MD [address] [place] [address] [address] [place], [place] 01/11/2026 8:15 AM EST Office Visit [facility] [address] [place] [address] Dirk Hoffman, OD [address] [place] [address] documented as of this encounter Goals Goal Patient Goal Type Associated Problems Recent Progress Patient-Stated? Author Patient to remain active in HIV care Care Plan Treatment Adherence On track(2024 11:44 AM EDT) No Cece Castro Patient to remain active on part B services/RW kristen-eligible Care Plan Treatment Adherence On track(2024 11:44 AM EDT) No Cece Castro Patient to maintain undetectable viral load Care Plan Treatment Adherence On track(2024 11:44 AM EDT) No Cece Castro Reduce transportation barriers to medical appts PRN Care Plan Transportation On track(2024 11:44 AM EDT) No Cece Castro Note: Gas cards for travel to clinic documented as of this encounter Procedures Procedure Name Priority Date/Time Associated Diagnosis Comments CT BONY PELVIS STAT 05/09/2025 4:[address] LUMBAR SPINE WO IV CONTRAST STAT 05/09/2025 4:[address] THORACIC SPINE WO IV CONTRAST STAT 05/09/2025 4:[address] CERVICAL SPINE WO IV CONTRAST STAT 05/09/2025 4:[address] HEAD WO IV CONTRAST STAT 4:19 PM EDT XR KNEE RIGHT 3 VIEWS STAT 05/09/2025 3:40 PM EDT XR KNEE LEFT 3 VIEWS STAT 05/09/2025 3:40 PM EDT XR ELBOW LEFT 3+ VIEWS STAT 3:40 PM EDT HEPATITIS C ANTIBODY - ED W/REFLEX TO HCV QUANT PCR STAT 05/09/2025 2:40 PM EDT PROTHROMBIN TIME(PT) / INR STAT 05/09/2025 2:40 PM EDT ANTI XA LEVEL UNFRACTIONATED HEPARIN STAT 05/09/2025 2:40 PM EDT CBC WITH AUTO DIFFERENTIAL STAT 05/09/2025 2:40 PM EDT COMPREHENSIVE METABOLIC PANEL, PLASMA STAT 05/09/2025 2:40 PM EDT POCT GLUCOSE METER UNSOLICITED RESULTS Routine 05/09/2025 1:23 PM EDT documented in this encounter Results * CT Bony Pelvis (05/09/2025 4:19 PM EDT) Anatomical Region Laterality Modality Pelvis Computed Tomogra phy Impressions 05/09/2025 6:42 PM EDT 1. No acute pelvic fracture or dislocation. 2. Markedly distended urinary bladder. Recommend correlation with the ability to void or consider placement of a Baez catheter. CRITICAL RESULT: No. COMMUNICATION: Per this written report. Drafted by Tariq Shen MD on 05/09/2025 6:38 PM Final report signed by Tariq Shen MD on 05/09/2025 6:42 PM Narrative 05/09/2025 6:42 PM EDT CLINICAL INDICATION: fall TECHNIQUE: Multiple axial CT images were obtained through level of pelvis per CT Bony Pelvis protocol. The axial CT data set was used to generate high resolution reformatted images in the coronal and sagittal planes to facilitate diagnostic accuracy and treatment planning. Total DLP (Dose-Length Product): 2512.38 mGy.cm. Please note: The reported value represents the total of one or more individual components during the CT acquisition on this date and at this time, and as such, the same value may appear in more than one CT report depending on the interpreting/reporting physicians. COMPARISON: None. FINDINGS: No acute fracture or dislocation in the pelvis. Small fat-containing umbilical hernia. Small bilateral fat-containing inguinal hernias. The visualized bowel loops are nondilated. IVC filter in place. Mild atherosclerotic disease. No lymphadenopathy by CT size criteria. Markedly distended urinary bladder. Procedure Note Tariq Shen MD - 05/09/2025 CLINICAL INDICATION: fall TECHNIQUE: Multiple axial CT images were obtained through level of pelvis per CT BonyPelvis protocol. The axial CT data set was used to generate highresolution reformatted images in the coronal and sagittal planes tofacilitate diagnostic accuracy and treatment planning. Total DLP (Dose-Length Product): 2512.38 mGy.cm. Please note: The reportedvalue represents the total of one or more individual components during theCT acquisition on this date and at this time, and as such, the same valuemay appear in more than one CT report depending on theinterpreting/reporting physicians. COMPARISON: None. FINDINGS: No acute fracture or dislocation in the pelvis. Small fat-containingumbilical hernia. Small bilateral fat-containing inguinal hernias. The visualized bowel loops are nondilated. IVC filter in place. Mildatherosclerotic disease. No lymphadenopathy by CT size criteria. Markedly distended urinary bladder. IMPRESSION: 1.No acute pelvic fracture or dislocation. 2.Markedly distended urinary bladder. Recommend correlation with theability to void or consider placement of a Baez catheter. CRITICAL RESULT: No. COMMUNICATION: Per this written report. Drafted by Tariq Shen MD on 05/09/2025 6:38 PM Final report signed by Tariq Shen MD on 05/09/2025 6:42 PM Jesus Archer MD IMG CT PROCEDURES Final R esult * CT Lumbar Spine wo IV Contrast (05/09/2025 4:19 PM EDT) Anatomical Region Laterality Modality Spine, L-spine Computed Tomogra phy Impressions 05/09/2025 6:00 PM EDT 1. No acute fracture or traumatic malalignment of the cervical spine. 2. No acute fracture or traumatic malalignment of the thoracic spine. 3. No acute fracture or traumatic malalignment of the lumbar spine. CRITICAL RESULT: No. COMMUNICATION: Per this written report. Drafted by Tariq Shen MD on 05/09/2025 5:51 PM Final report signed by Tariq Shen MD on 05/09/2025 6:00 PM Narrative 05/09/2025 6:00 PM EDT CLINICAL INDICATION: fall TECHNIQUE: Imaging of the entire cervical spine (to include the cervicothoracic junction) was performed, using spiral technique, without contrast administration. Reformatted images in the coronal and sagittal planes were generated from the axial data set to facilitate diagnostic accuracy and/or surgical planning. Contiguous axial CT images of the entire thoracic spine were reformatted from a CT of the chest/aorta. Reconstructed images in the coronal and sagittal planes were generated from the axial data set to facilitate diagnostic accuracy and/or surgical planning. Contiguous axial CT images of the entire lumbar spine were reformatted from a CT of the abdomen and pelvis. Reconstructed images in the coronal and sagittal planes were generated from the axial data set to facilitate diagnostic accuracy and/or surgical planning. Total DLP (Dose-Length Product): 2512.38 mGy.cm (accession [id number]), 2512.38 mGy.cm (accession [id number]), 2512.38 mGy.cm (accession [id number]). Please note: The reported value represents the total of one or more individual components during the CT acquisition on this date and at this time, and as such, the same value may appear in more than one CT report depending on the interpreting/reporting physicians. COMPARISON: None. FINDINGS: Cervical Spine: Vertebrae: No acute fracture or compression deformity. Multilevel degenerative changes most evident at C6-C7. Alignment: Mild straightening of the cervical spine curvature likely positional or related to muscle spasm. No traumatic malalignment. Paraspinal Soft Tissues: No paraspinal hematoma. Lung Apices: No pneumothorax at the lung apices. Thoracic Spine: Vertebrae: No acute fracture or compression deformity. Alignment: No traumatic malalignment. Paraspinal Soft Tissues: Please see report for CT Chest/Aorta for soft tissue findings. Lumbar Spine: Vertebrae: No acute fracture or compression deformity. Multilevel degenerative changes. Alignment: No traumatic malalignment. Multilevel degenerative changes. Paraspinal Soft Tissues: No large or discrete lesion in the paraspinal region. IVC filter noted in place. Procedure Note Tariq Shen MD - 05/09/2025 CLINICAL INDICATION: fall TECHNIQUE: Imaging of the entire cervical spine (to include the cervicothoracicjunction) was performed, using spiral technique, without contrastadministration. Reformatted images in the coronal and sagittal planes weregenerated from the axial data set to facilitate diagnostic accuracy and/orsurgical planning. Contiguous axial CT images of the entire thoracic spine were reformattedfrom a CT of the chest/aorta. Reconstructed images in the coronal andsagittal planes were generated from the axial data set to facilitatediagnostic accuracy and/or surgical planning. Contiguous axial CT images of the entire lumbar spine were reformattedfrom a CT of the abdomen and pelvis. Reconstructed images in the coronaland sagittal planes were generated from the axial data set to facilitatediagnostic accuracy and/or surgical planning. Total DLP (Dose-Length Product): 2512.38 mGy.cm (accession [id number]),2512.38 mGy.cm (accession [id number]), 2512.38 mGy.cm (accession [id number]).Please note: The reported value represents the total of one or moreindividual components during the CT acquisition on this date and at thistime, and as such, the same value may appear in more than one CT reportdepending on the interpreting/reporting physicians. COMPARISON: None. FINDINGS: Cervical Spine: Vertebrae: No acute fracture or compression deformity. Multileveldegenerative changes most evident at C6-C7. Alignment: Mild straightening of the cervical spine curvature likelypositional or related to muscle spasm. No traumatic malalignment. Paraspinal Soft Tissues: No paraspinal hematoma. Lung Apices: No pneumothorax at the lung apices. Thoracic Spine: Vertebrae: No acute fracture or compression deformity. Alignment: No traumatic malalignment. Paraspinal Soft Tissues: Please see report for CT Chest/Aorta for softtissue findings. Lumbar Spine: Vertebrae: No acute fracture or compression deformity. Multileveldegenerative changes. Alignment: No traumatic malalignment. Multilevel degenerative changes. Paraspinal Soft Tissues: No large or discrete lesion in the paraspinalregion. IVC filter noted in place. IMPRESSION: 1. No acute fracture or traumatic malalignment of the cervical spine. 2. No acute fracture or traumatic malalignment of the thoracic spine. 3. No acute fracture or traumatic malalignment of the lumbar spine. CRITICAL RESULT: No. COMMUNICATION: Per this written report. Drafted by Tariq Shen MD on 05/09/2025 5:51 PM Final report signed by Tariq Shen MD on 05/09/2025 6:00 PM us Jesus Archer MD IMG CT PROCEDURES Final R esult * CT Thoracic Spine wo IV Contrast (05/09/2025 4:19 PM EDT) Anatomical Region Laterality Modality Spine, T-spine Computed Tomogra phy Impressions 05/09/2025 6:00 PM EDT 1. No acute fracture or traumatic malalignment of the cervical spine. 2. No acute fracture or traumatic malalignment of the thoracic spine. 3. No acute fracture or traumatic malalignment of the lumbar spine. CRITICAL RESULT: No. COMMUNICATION: Per this written report. Drafted by Tariq Shen MD on 05/09/2025 5:51 PM Final report signed by Tariq Shen MD on 05/09/2025 6:00 PM Narrative 05/09/2025 6:00 PM EDT CLINICAL INDICATION: fall TECHNIQUE: Imaging of the entire cervical spine (to include the cervicothoracic junction) was performed, using spiral technique, without contrast administration. Reformatted images in the coronal and sagittal planes were generated from the axial data set to facilitate diagnostic accuracy and/or surgical planning. Contiguous axial CT images of the entire thoracic spine were reformatted from a CT of the chest/aorta. Reconstructed images in the coronal and sagittal planes were generated from the axial data set to facilitate diagnostic accuracy and/or surgical planning. Contiguous axial CT images of the entire lumbar spine were reformatted from a CT of the abdomen and pelvis. Reconstructed images in the coronal and sagittal planes were generated from the axial data set to facilitate diagnostic accuracy and/or surgical planning. Total DLP (Dose-Length Product): 2512.38 mGy.cm (accession [id number]), 2512.38 mGy.cm (accession [id number]), 2512.38 mGy.cm (accession [id number]). Please note: The reported value represents the total of one or more individual components during the CT acquisition on this date and at this time, and as such, the same value may appear in more than one CT report depending on the interpreting/reporting physicians. COMPARISON: None. FINDINGS: Cervical Spine: Vertebrae: No acute fracture or compression deformity. Multilevel degenerative changes most evident at C6-C7. Alignment: Mild straightening of the cervical spine curvature likely positional or related to muscle spasm. No traumatic malalignment. Paraspinal Soft Tissues: No paraspinal hematoma. Lung Apices: No pneumothorax at the lung apices. Thoracic Spine: Vertebrae: No acute fracture or compression deformity. Alignment: No traumatic malalignment. Paraspinal Soft Tissues: Please see report for CT Chest/Aorta for soft tissue findings. Lumbar Spine: Vertebrae: No acute fracture or compression deformity. Multilevel degenerative changes. Alignment: No traumatic malalignment. Multilevel degenerative changes. Paraspinal Soft Tissues: No large or discrete lesion in the paraspinal region. IVC filter noted in place. Procedure Note Tariq Shen MD - 05/09/2025 CLINICAL INDICATION: fall TECHNIQUE: Imaging of the entire cervical spine (to include the cervicothoracicjunction) was performed, using spiral technique, without contrastadministration. Reformatted images in the coronal and sagittal planes weregenerated from the axial data set to facilitate diagnostic accuracy and/orsurgical planning. Contiguous axial CT images of the entire thoracic spine were reformattedfrom a CT of the chest/aorta. Reconstructed images in the coronal andsagittal planes were generated from the axial data set to facilitatediagnostic accuracy and/or surgical planning. Contiguous axial CT images of the entire lumbar spine were reformattedfrom a CT of the abdomen and pelvis. Reconstructed images in the coronaland sagittal planes were generated from the axial data set to facilitatediagnostic accuracy and/or surgical planning. Total DLP (Dose-Length Product): 2512.38 mGy.cm (accession [id number]),2512.38 mGy.cm (accession [id number]), 2512.38 mGy.cm (accession [id number]).Please note: The reported value represents the total of one or moreindividual components during the CT acquisition on this date and at thistime, and as such, the same value may appear in more than one CT reportdepending on the interpreting/reporting physicians. COMPARISON: None. FINDINGS: Cervical Spine: Vertebrae: No acute fracture or compression deformity. Multileveldegenerative changes most evident at C6-C7. Alignment: Mild straightening of the cervical spine curvature likelypositional or related to muscle spasm. No traumatic malalignment. Paraspinal Soft Tissues: No paraspinal hematoma. Lung Apices: No pneumothorax at the lung apices. Thoracic Spine: Vertebrae: No acute fracture or compression deformity. Alignment: No traumatic malalignment. Paraspinal Soft Tissues: Please see report for CT Chest/Aorta for softtissue findings. Lumbar Spine: Vertebrae: No acute fracture or compression deformity. Multileveldegenerative changes. Alignment: No traumatic malalignment. Multilevel degenerative changes. Paraspinal Soft Tissues: No large or discrete lesion in the paraspinalregion. IVC filter noted in place. IMPRESSION: 1. No acute fracture or traumatic malalignment of the cervical spine. 2. No acute fracture or traumatic malalignment of the thoracic spine. 3. No acute fracture or traumatic malalignment of the lumbar spine. CRITICAL RESULT: No. COMMUNICATION: Per this written report. Drafted by Tariq Shen MD on 05/09/2025 5:51 PM Final report signed by Tariq Shen MD on 05/09/2025 6:00 PM Jesus Archer MD IMG CT PROCEDURES Final R esult * CT Cervical Spine wo IV Contrast (05/09/2025 4:19 PM EDT) Anatomical Region Laterality Modality Spine, C-spine Computed Tomogra phy Impressions 05/09/2025 6:00 PM EDT 1. No acute fracture or traumatic malalignment of the cervical spine. 2. No acute fracture or traumatic malalignment of the thoracic spine. 3. No acute fracture or traumatic malalignment of the lumbar spine. CRITICAL RESULT: No. COMMUNICATION: Per this written report. Drafted by Tariq Shen MD on 05/09/2025 5:51 PM Final report signed by Tariq Shen MD on 05/09/2025 6:00 PM Narrative 05/09/2025 6:00 PM EDT CLINICAL INDICATION: fall TECHNIQUE: Imaging of the entire cervical spine (to include the cervicothoracic junction) was performed, using spiral technique, without contrast administration. Reformatted images in the coronal and sagittal planes were generated from the axial data set to facilitate diagnostic accuracy and/or surgical planning. Contiguous axial CT images of the entire thoracic spine were reformatted from a CT of the chest/aorta. Reconstructed images in the coronal and sagittal planes were generated from the axial data set to facilitate diagnostic accuracy and/or surgical planning. Contiguous axial CT images of the entire lumbar spine were reformatted from a CT of the abdomen and pelvis. Reconstructed images in the coronal and sagittal planes were generated from the axial data set to facilitate diagnostic accuracy and/or surgical planning. Total DLP (Dose-Length Product): 2512.38 mGy.cm (accession [id number]), 2512.38 mGy.cm (accession [id number]), 2512.38 mGy.cm (accession [id number]). Please note: The reported value represents the total of one or more individual components during the CT acquisition on this date and at this time, and as such, the same value may appear in more than one CT report depending on the interpreting/reporting physicians. COMPARISON: None. FINDINGS: Cervical Spine: Vertebrae: No acute fracture or compression deformity. Multilevel degenerative changes most evident at C6-C7. Alignment: Mild straightening of the cervical spine curvature likely positional or related to muscle spasm. No traumatic malalignment. Paraspinal Soft Tissues: No paraspinal hematoma. Lung Apices: No pneumothorax at the lung apices. Thoracic Spine: Vertebrae: No acute fracture or compression deformity. Alignment: No traumatic malalignment. Paraspinal Soft Tissues: Please see report for CT Chest/Aorta for soft tissue findings. Lumbar Spine: Vertebrae: No acute fracture or compression deformity. Multilevel degenerative changes. Alignment: No traumatic malalignment. Multilevel degenerative changes. Paraspinal Soft Tissues: No large or discrete lesion in the paraspinal region. IVC filter noted in place. Procedure Note Tariq Shen MD - 05/09/2025 CLINICAL INDICATION: fall TECHNIQUE: Imaging of the entire cervical spine (to include the cervicothoracicjunction) was performed, using spiral technique, without contrastadministration. Reformatted images in the coronal and sagittal planes weregenerated from the axial data set to facilitate diagnostic accuracy and/orsurgical planning. Contiguous axial CT images of the entire thoracic spine were reformattedfrom a CT of the chest/aorta. Reconstructed images in the coronal andsagittal planes were generated from the axial data set to facilitatediagnostic accuracy and/or surgical planning. Contiguous axial CT images of the entire lumbar spine were reformattedfrom a CT of the abdomen and pelvis. Reconstructed images in the coronaland sagittal planes were generated from the axial data set to facilitatediagnostic accuracy and/or surgical planning. Total DLP (Dose-Length Product): 2512.38 mGy.cm (accession [id number]),2512.38 mGy.cm (accession [id number]), 2512.38 mGy.cm (accession [id number]).Please note: The reported value represents the total of one or moreindividual components during the CT acquisition on this date and at thistime, and as such, the same value may appear in more than one CT reportdepending on the interpreting/reporting physicians. COMPARISON: None. FINDINGS: Cervical Spine: Vertebrae: No acute fracture or compression deformity. Multileveldegenerative changes most evident at C6-C7. Alignment: Mild straightening of the cervical spine curvature likelypositional or related to muscle spasm. No traumatic malalignment. Paraspinal Soft Tissues: No paraspinal hematoma. Lung Apices: No pneumothorax at the lung apices. Thoracic Spine: Vertebrae: No acute fracture or compression deformity. Alignment: No traumatic malalignment. Paraspinal Soft Tissues: Please see report for CT Chest/Aorta for softtissue findings. Lumbar Spine: Vertebrae: No acute fracture or compression deformity. Multileveldegenerative changes. Alignment: No traumatic malalignment. Multilevel degenerative changes. Paraspinal Soft Tissues: No large or discrete lesion in the paraspinalregion. IVC filter noted in place. IMPRESSION: 1. No acute fracture or traumatic malalignment of the cervical spine. 2. No acute fracture or traumatic malalignment of the thoracic spine. 3. No acute fracture or traumatic malalignment of the lumbar spine. CRITICAL RESULT: No. COMMUNICATION: Per this written report. Drafted by Tariq Shen MD on 05/09/2025 5:51 PM Final report signed by Tariq Shen MD on 05/09/2025 6:00 PM us Jesus Archer MD IMG CT PROCEDURES Final R esult * CT Head wo IV Contrast (05/09/2025 4:19 PM EDT) Anatomical Region Laterality Modality Head Computed Tomogra phy Impressions 05/09/2025 5:50 PM EDT No acute intracranial abnormality. CRITICAL RESULT: No. COMMUNICATION: Per this written report. Drafted by Skye Dewitt MD on 05/09/2025 5:43 PM Final report signed by Skye Dewitt MD on 05/09/2025 5:50 PM Narrative 05/09/2025 5:50 PM EDT CLINICAL INDICATION: fall on bt TECHNIQUE: Routine contiguous axial CT images of the head were obtained without contrast administration. Total DLP (Dose-Length Product): 2512.38 mGy.cm. Please note: The reported value represents the total of one or more individual components during the CT acquisition on this date and at this time, and as such, the same value may appear in more than one CT report depending on the interpreting/reporting physicians. COMPARISON: None. FINDINGS: No acute intracranial abnormality. No evidence of acute hemorrhage or ischemia. No mass, mass effect, or midline displacement of structures. Normal ventricular size and configuration. Patent basal cisterns. Mild generalized cerebral and cerebellar atrophy. Mild white matter changes which are nonspecific but commonly seen with small vessel ischemic changes. No displaced or depressed calvarial fractures. There is mucosal thickening of several of the ethmoid air cells. The mastoid air cells are clear. Procedure Note Skye Dewitt MD - 05/09/2025 CLINICAL INDICATION: fall on bt TECHNIQUE: Routine contiguous axial CT images of the head were obtained withoutcontrast administration. Total DLP (Dose-Length Product): 2512.38 mGy.cm. Please note: The reportedvalue represents the total of one or more individual components during theCT acquisition on this date and at this time, and as such, the same valuemay appear in more than one CT report depending on theinterpreting/reporting physicians. COMPARISON: None. FINDINGS: No acute intracranial abnormality. No evidence of acute hemorrhage orischemia. No mass, mass effect, or midline displacement of structures.Normal ventricular size and configuration. Patent basal cisterns. Mildgeneralized cerebral and cerebellar atrophy. Mild white matter changeswhich are nonspecific but commonly seen with small vessel ischemicchanges. No displaced or depressed calvarial fractures. There is mucosal thickeningof several of the ethmoid air cells. The mastoid air cells are clear. IMPRESSION: No acute intracranial abnormality. CRITICAL RESULT: No. COMMUNICATION: Per this written report. Drafted by Skye Dewitt MD on 05/09/2025 5:43 PM Final report signed by Skye Dewitt MD on 05/09/2025 5:50 PM Jesus Archer MD IMG CT PROCEDURES Final R esult * XR Knee Right 3 Views (05/09/2025 3:40 PM EDT) Anatomical Region Laterality Modality Lower Extremities, Knee Right Digital Radiography Impressions 05/09/2025 3:58 PM EDT No acute osseous abnormality in the left elbow and bilateral knees. CRITICAL RESULT: No. COMMUNICATION: Per this written report. Drafted by Selina Mcdermott MD on 05/09/2025 3:57 PM Final report signed by Selina Mcdermott MD on 05/09/2025 3:58 PM Narrative 05/09/2025 3:58 PM EDT CLINICAL INDICATION: fall TECHNIQUE: XR ELBOW LEFT 3+ VIEWS, XR KNEE RIGHT 3 VIEWS, XR KNEE LEFT 3 VIEWS COMPARISON: None. FINDINGS: Left elbow: The humeroradial, humeroulnar, and radioulnar joints are well articulated. No fracture, subluxation, or dislocation is identified. No soft tissue abnormalities identified. Right knee: Mild tricompartmental osteoarthrosis. Chondrocalcinosis. No acute fracture or dislocation. No suprapatellar effusion. No soft tissue abnormality. Left knee: Mild tricompartmental osteoarthrosis. Chondrocalcinosis. No acute fracture dislocation. Trace suprapatellar effusion. No obvious soft tissue abnormality. Procedure Note Selina Mcdermott MD - 05/09/2025 CLINICAL INDICATION: fall TECHNIQUE: XR ELBOW LEFT 3+ VIEWS, XR KNEE RIGHT 3 VIEWS, XR KNEE LEFT 3 VIEWS COMPARISON: None. FINDINGS: Left elbow: The humeroradial, humeroulnar, and radioulnar joints are wellarticulated. No fracture, subluxation, or dislocation is identified. Nosoft tissue abnormalities identified. Right knee: Mild tricompartmental osteoarthrosis. Chondrocalcinosis. Noacute fracture or dislocation. No suprapatellar effusion. No soft tissueabnormality. Left knee: Mild tricompartmental osteoarthrosis. Chondrocalcinosis. Noacute fracture dislocation. Trace suprapatellar effusion. No obvious softtissue abnormality. IMPRESSION: No acute osseous abnormality in the left elbow and bilateral knees. CRITICAL RESULT: No. COMMUNICATION: Per this written report. Drafted by Selina Mcdermott MD on 05/09/2025 3:57 PM Final report signed by Selina Mcdermott MD on 05/09/2025 3:58 PM Jesus Archer MD IMG XR PROCEDURES Final R esult * XR Knee Left 3 Views (05/09/2025 3:40 PM EDT) Anatomical Region Laterality Modality Lower Extremities, Knee Left Digital Radiography Impressions 05/09/2025 3:58 PM EDT No acute osseous abnormality in the left elbow and bilateral knees. CRITICAL RESULT: No. COMMUNICATION: Per this written report. Drafted by Selina Mcdermott MD on 05/09/2025 3:57 PM Final report signed by Selina Mcdermott MD on 05/09/2025 3:58 PM Narrative 05/09/2025 3:58 PM EDT CLINICAL INDICATION: fall TECHNIQUE: XR ELBOW LEFT 3+ VIEWS, XR KNEE RIGHT 3 VIEWS, XR KNEE LEFT 3 VIEWS COMPARISON: None. FINDINGS: Left elbow: The humeroradial, humeroulnar, and radioulnar joints are well articulated. No fracture, subluxation, or dislocation is identified. No soft tissue abnormalities identified. Right knee: Mild tricompartmental osteoarthrosis. Chondrocalcinosis. No acute fracture or dislocation. No suprapatellar effusion. No soft tissue abnormality. Left knee: Mild tricompartmental osteoarthrosis. Chondrocalcinosis. No acute fracture dislocation. Trace suprapatellar effusion. No obvious soft tissue abnormality. Procedure Note Selina Mcdermott MD - 05/09/2025 CLINICAL INDICATION: fall TECHNIQUE: XR ELBOW LEFT 3+ VIEWS, XR KNEE RIGHT 3 VIEWS, XR KNEE LEFT 3 VIEWS COMPARISON: None. FINDINGS: Left elbow: The humeroradial, humeroulnar, and radioulnar joints are wellarticulated. No fracture, subluxation, or dislocation is identified. Nosoft tissue abnormalities identified. Right knee: Mild tricompartmental osteoarthrosis. Chondrocalcinosis. Noacute fracture or dislocation. No suprapatellar effusion. No soft tissueabnormality. Left knee: Mild tricompartmental osteoarthrosis. Chondrocalcinosis. Noacute fracture dislocation. Trace suprapatellar effusion. No obvious softtissue abnormality. IMPRESSION: No acute osseous abnormality in the left elbow and bilateral knees. CRITICAL RESULT: No. COMMUNICATION: Per this written report. Drafted by Selina Mcdermott MD on 05/09/2025 3:57 PM Final report signed by Selina Mcdermott MD on 05/09/2025 3:58 PM us Jesus Archer MD IMG XR PROCEDURES Final R esult * XR Elbow Left 3+ Views (05/09/2025 3:40 PM EDT) Anatomical Region Laterality Modality Upper Extremities, Elbow Left Digital Radiography Impressions 05/09/2025 3:58 PM EDT No acute osseous abnormality in the left elbow and bilateral knees. CRITICAL RESULT: No. COMMUNICATION: Per this written report. Drafted by Selina Mcdermott MD on 05/09/2025 3:57 PM Final report signed by Selina Mcdermott MD on 05/09/2025 3:58 PM Narrative 05/09/2025 3:58 PM EDT CLINICAL INDICATION: fall TECHNIQUE: XR ELBOW LEFT 3+ VIEWS, XR KNEE RIGHT 3 VIEWS, XR KNEE LEFT 3 VIEWS COMPARISON: None. FINDINGS: Left elbow: The humeroradial, humeroulnar, and radioulnar joints are well articulated. No fracture, subluxation, or dislocation is identified. No soft tissue abnormalities identified. Right knee: Mild tricompartmental osteoarthrosis. Chondrocalcinosis. No acute fracture or dislocation. No suprapatellar effusion. No soft tissue abnormality. Left knee: Mild tricompartmental osteoarthrosis. Chondrocalcinosis. No acute fracture dislocation. Trace suprapatellar effusion. No obvious soft tissue abnormality. Procedure Note Dommeti, Sri Kylie, MD - 05/09/2025 CLINICAL INDICATION: fall TECHNIQUE: XR ELBOW LEFT 3+ VIEWS, XR KNEE RIGHT 3 VIEWS, XR KNEE LEFT 3 VIEWS COMPARISON: None. FINDINGS: Left elbow: The humeroradial, humeroulnar, and radioulnar joints are wellarticulated. No fracture, subluxation, or dislocation is identified. Nosoft tissue abnormalities identified. Right knee: Mild tricompartmental osteoarthrosis. Chondrocalcinosis. Noacute fracture or dislocation. No suprapatellar effusion. No soft tissueabnormality. Left knee: Mild tricompartmental osteoarthrosis. Chondrocalcinosis. Noacute fracture dislocation. Trace suprapatellar effusion. No obvious softtissue abnormality. IMPRESSION: No acute osseous abnormality in the left elbow and bilateral knees. CRITICAL RESULT: No. COMMUNICATION: Per this written report. Drafted by Selina Mcdermott MD on 05/09/2025 3:57 PM Final report signed by Selina Mcdermott MD on 05/09/2025 3:58 PM Jesus Archer MD IMG XR PROCEDURES Final R esult * Hepatitis C Antibody - ED W/Reflex to HCV Quant PCR (05/09/2025 2:40 PM EDT) [facility] Hepatitis C Antibody Negative Negative 05/09/2025 3:37 PM EDT [facility] Blood Venous blood specimen / Unknown Venipuncture / Unknown 05/09/2025 2:40 PM EDT 05/09/2025 2:55 PM EDT Jesus Archer MD LAB BLOOD ORDERABLES Andreea l Result [facility] [address] [place] [address] * (ABNORMAL) CMP (05/09/2025 2:40 PM EDT) [facility] Glucose, Plasma 82 74 - 99 mg/dL 05/09/2025 3:31 PM EDT [facility] LAB BUN, Plasma 26(H) 8 - 23 mg/dL 05/09/2025 3:31 PM EDT [facility] Creatinine, Plasma 1.87(H) 0.70 - 1.20 mg/dL 05/09/2025 3:31 PM EDT [facility] BUN/Creatinine Ratio 14 05/09/2025 3:31 PM EDT [facility] Sodium, Plasma 141 136 - 145 mmol/L 05/09/2025 3:31 PM EDT [facility] Potassium, Plasma 4.9 3.6 - 4.9 mmol/L 05/09/2025 3:31 PM EDT [facility] Chloride, Plasma 105 97 - 107 mmol/L 05/09/2025 3:31 PM EDT [facility] CO2, Plasma 22 22 - 29 mmol/L 05/09/2025 3:31 PM EDT [facility] Anion Gap 14 6 - 16 mmol/L 05/09/2025 3:31 PM EDT [facility] Total Calcium, Plasma 8.4(L) 8.9 - 10.2 mg/dL 05/09/2025 3:31 PM EDT [facility] Total Protein 6.1(L) 6.3 - 7.9 g/dL 05/09/2025 3:31 PM EDT [facility] Albumin, Plasma 3.6 3.5 - 5.2 g/dL 05/09/2025 3:31 PM EDT [facility] AST, Plasma 24 10 - 50 U/L 05/09/2025 3:31 PM EDT [facility] Comment:Hemolyzed, result ma y be falsely increased. ALT, Plasma 20 10 - 50 U/L 05/09/2025 3:31 PM EDT [facility] Alkaline Phosphatase, Plasma 81 40 - 115 U/L 05/09/2025 3:31 PM EDT [facility] Total Bilirubin, Plasma 0.2 0.2 - 1.1 mg/dL 05/09/2025 3:31 PM EDT [facility] eGFRcr 37.5 mL/min/1.7 3m*2 05/09/2025 3:31 PM EDT [facility] Comment:Reported eGFRcr in m L/min/1.73m2 is based the CKD-EPI 2020 equation that does not use a race coefficient. Blood Venous blood specimen / Unknown Venipuncture / Unknown 05/09/2025 2:40 PM EDT 05/09/2025 2:46 PM EDT Jesus Archer MD LAB BLOOD ORDERABLES Andreea l Result Performing Organization Address [facility] Co de Phone Number [facility] [address] [place] [address] * PT-INR (05/09/2025 2:40 PM EDT) Prothrombin Time 12.9 12.0 - 14.3 sec 05/09/2025 3:13 PM EDT [facility] INR 1.0 0.9 - 1.1 05/09/2025 3:13 PM EDT [facility] Blood Venous blood specimen / Unknown Venipuncture / Unknown 05/09/2025 2:40 PM EDT 05/09/2025 2:46 PM EDT Narrative [facility] - 05/09/2025 3:13 PM EDT OPTIMAL INR RANGES FOR PATIENT ON ORAL ANTICOAGULANT THERAPY Prevention of venous thromboembolism INR 2.0 to 3.0 In patients with heart disease: Atrial fibrillation INR 2.0 to 3.0 Valvular heart disease INR 2.0 to 3.0 Tissue heart valves INR 2.0 to 3.0 Mechanical prosthetic valves INR 2.5 to 3.5 Prevention of recurrent VT INR 2.5 to 3.5 Jesus Archer MD LAB BLOOD ORDERABLES Andreea l Result Performing Organization Address [facility] Co de Phone Number [facility] [address] [place] [address] * Anti Xa Level Unfractionated Heparin (05/09/2025 2:40 PM EDT) Anti Xa Level Unfractionated Heparin <0.11 <1.00 IU/mL 05/09/2025 3:14 PM EDT [facility] Blood Venous blood specimen / Unknown Venipuncture / Unknown 05/09/2025 2:40 PM EDT 05/09/2025 2:46 PM EDT Narrative [facility] - 05/09/2025 3:14 PM EDT Therapeutic Range: UFH Full Dose and ACS/VT protocols*: 0.30 - 0.70 IU/mL UFH Low Dose protocol*: 0.25 - 0.50 IU/mL UFH prophylaxis: Not established Jesus Archer MD LAB BLOOD ORDERABLES Andreea damico Result [facility] [address] [place] [address] * (ABNORMAL) CBC w/diff (05/09/2025 2:40 PM EDT) WBC Count 6.22 3.70 - 10.30 10*3/uL LAB HEMATOLOGY METHOD 05/09/2025 2:49 PM EDT [facility] RBC Count 2.85(L) 4.60 - 6.10 10*6/uL LAB HEMATOLOGY METHOD 05/09/2025 2:49 PM EDT [facility] HGB 9.3(L) 13.7 - 17.5 g/dL LAB HEMATOLOGY METHOD 05/09/2025 2:49 PM EDT [facility] HCT 27.2(L) 40.0 - 51.0 % LAB HEMATOLOGY METHOD 05/09/2025 2:49 PM EDT [facility] Platelet Count 137(L) 155 - 369 10*3/uL LAB HEMATOLOGY METHOD 05/09/2025 2:49 PM EDT [facility] MCV 95 79 - 98 fL LAB HEMATOLOGY METHOD 05/09/2025 2:49 PM EDT [facility] MCH 32.6(H) 26.0 - 32.0 pg LAB HEMATOLOGY METHOD 05/09/2025 2:49 PM EDT [facility] MCHC 34.2 30.7 - 35.5 g/dL LAB HEMATOLOGY METHOD 05/09/2025 2:49 PM EDT [facility] RDW 13.7 11.5 - 14.5 % LAB HEMATOLOGY METHOD 05/09/2025 2:49 PM EDT [facility] MPV 9.3 8.8 - 12.5 fL LAB HEMATOLOGY METHOD 05/09/2025 2:49 PM EDT [facility] nRBC 0.0 <=0.0 per 100 WBCs LAB HEMATOLOGY METHOD 05/09/2025 2:49 PM EDT [facility] Differential Type Automated LAB HEMATOLOGY METHOD 05/09/2025 2:49 PM EDT [facility] Neutrophils % 66 % LAB HEMATOLOGY METHOD 05/09/2025 2:49 PM EDT [facility] Lymphocytes % 26 % LAB HEMATOLOGY METHOD 05/09/2025 2:49 PM EDT [facility] Monocytes % 6 % LAB HEMATOLOGY METHOD 05/09/2025 2:49 PM EDT [facility] Eosinophils % 2 % LAB HEMATOLOGY METHOD 05/09/2025 2:49 PM EDT [facility] Basophils % 0 % LAB HEMATOLOGY METHOD 05/09/2025 2:49 PM EDT [facility] Immature Granulocytes % 0 % LAB HEMATOLOGY METHOD 05/09/2025 2:49 PM EDT [facility] Neutrophils Absolute 4.01 1.60 - 6.10 10*3/uL LAB HEMATOLOGY METHOD 05/09/2025 2:49 PM EDT [facility] Lymphocytes Absolute 1.64 1.20 - 3.90 10*3/uL LAB HEMATOLOGY METHOD 05/09/2025 2:49 PM EDT [facility] Monocytes Absolute 0.40 0.30 - 0.90 10*3/uL LAB HEMATOLOGY METHOD 05/09/2025 2:49 PM EDT [facility] Eosinophils Absolute 0.13 0.00 - 0.50 10*3/uL LAB HEMATOLOGY METHOD 05/09/2025 2:49 PM EDT [facility] Basophils Absolute 0.02 0.00 - 0.10 10*3/uL LAB HEMATOLOGY METHOD 05/09/2025 2:49 PM EDT [facility] Immature Granulocytes Absolute 0.02 0.00 - 0.06 10*3/uL LAB HEMATOLOGY METHOD 05/09/2025 2:49 PM EDT [facility] Blood Venous blood specimen / Unknown Venipuncture / Unknown 05/09/2025 2:40 PM EDT 05/09/2025 2:46 PM EDT [facility] - 05/09/2025 2:49 PM EDT Therapeutic decision making should be based on absolute values, rather than percentages. us Jesus Archer MD LAB BLOOD ORDERABLES Andreea mookie Result Performing Organization Address [facility] Co de Phone Number [facility] [address] [place] [address] * POCT glucose meter (05/09/2025 1:23 PM EDT) POCT Glucose 93 74 - 99 mg/dL 05/09/2025 1:24 PM EDT [facility] Comment:Accuracy of a glucos e result obtained from a capillary whole blood specimen relies upon adequate, non-compromised capillary blood flow. If the capillary glucose result is not consistent with the patient's clinical signs and symptoms, glucose testing should be repeated with either an arterial or venous sample on the glucometer or sent to the main labortory for testing. Comment 05/09/2025 1:24 PM EDT [facility] Drawer In Hand ID Gina Hess 05/09/20 25 1:24 PM EDT [facility] Device ID [id number] 05/09/2025 1:24 PM EDT [facility] Specimen Type POC Capillary 05/09/2025 1:24 PM EDT [facility] Blood Capillary blood specimen / Unknown 05/09/2025 1:23 PM EDT 05/09/2025 1:24 PM EDT us Generic Provider Poct LAB POINT OF CARE TEST DOCKED DEVICE UNSOLICITED RESULTS Final Result Performing Organization Address [facility] Co de Phone Number [facility] [address] [place] [address] documented in this encounter Visit Diagnoses Diagnosis Fall, initial encounter- Primary documented in this encounter Additional Health Concerns Active Problems Noted Date Diagnosed Date Treatment Adherence 07/05/2021 Transportation 07/05/2021 Assessment Noted Time PHQ-9 Depression Total Score: 0 02/08/20 25 8:30 AM EDT A fall risk assessment has been complete d for the patient 02/21/2025 1:01 PM EDT A Body Mass Index follow-up plan has been documented for the patient 02/23/2025 2:28 PM EDT documented as of this encounter Care Teams Supervisor Sandblaster Relationship Specialty Start Date End Date Kayleigh Del Cid MD [address] [place] [phone] PCP - General Internal Medicine 04/02/23 Magalis Ruiz Administrative Supervisor Messenger Office 07/25/22 Imtiaz Caraballo MD [address] [place] [phone] Family Medicine 04/02/23 Scottie Solo MD [address] [place] [phone] Consulting Physician Infectious Diseases 01/09/24 documented as of this encounter
--- OUTSIDE RECORDS SUMMARY | 2025-05-16 15:30 | XMS_ITS | Encounter Summary ---
Author Organization Healthcare Address [address] [place] [address] Care Team Providers Care Quarry Boss Name Role Phone Magalis Ruiz Unavailable Unavailable Kayleigh Del Cid MD Primary Care Provider [phone] Imtiaz Caraballo MD Unavailable Unavailab Scottie Davenport MD Unavailable Reason for Referral * Consultation (Routine) - Authorized Specialty Diagnoses / Procedures Referred By Contac t Referred To Contact Diagnoses Coronary arteriosclerosis Kayleigh Del Cid MD [address] [place] [phone] Phone: tel: fax: Referral ID Status Reason Start Date Expiration Date V isits Requested Visits Authorized [id number] Authorized 05/16/2025 11/15/2026 1 1 Reason for Visit * Reason Comments Follow-up Encounter Details Date Type Department Care Team (Latest Contact Info) Description 05/16/2025 3:30 PM EDT Office Visit [address] [phone] Kayleigh Del Cid MD [address] [place] [phone] Coronary arteriosclerosis (Primary Dx); Pure hypercholesterolemia; Depression, [...] Meningococcal MCV4P 09/24/2017, 02/04/2018 Moderna COVID-19 Vaccine (Process Control Operator) 12+ years 01/25/2021, 02/22/2021, 07/26/2021 Moderna COVID-19 [...] - 05/25/2025 4:26 PM EDT Associated Problem(s): Recurrent falls -discussed importance of treating OA [...] Chronic kidney disease (CKD), stage III (moderate) ([facility]) Lab Results Component Value Date CREATININE [...] Rodriguez is a 74 [address] [facility] HIV who presents today for follow-up. [...] this done once before. He follows with [facility]. Memory - He [...] PRN gabapentin (Neurontin) 300 MG capsule HYDROcodone-acetaminophen (Helen) 7.5-325 MG tablet 7.5 mg of hydrocodone, [...] Chronic kidney disease (CKD), stage III (moderate) ([facility]) Lab Results Component Value Date CREATININE [...] Meningococcal MCV4P 09/24/2017, 02/04/2018 Moderna COVID-19 Vaccine (Process Control Operator) 12+ years 01/25/2021, 02/22/2021, 07/26/2021 Moderna COVID-19 [...] saw and evaluated the patient with the medical/MACHINE OPERATOR/PA student. I discussed the case with the medical/MACHINE OPERATOR/PA student and agree with the findings and plan as documented. I personally performed the Examand Medical Decision Making. Kayleigh Del Cid MD documented in this encounter Plan of Treatment Upcoming Encounters Date Type Department Care Team (Late st Contact Info) Description 08/31/2025 1:00 PM EDT Office Visit [facility] [address] [place] [phone] Mike Harley PA [address] [facility] [address] [place] [address] 11/16/2025 9:30 AM EST Office Visit [address] [phone] [place] [address] [place] [address] [address] [place] [address] 11/16/2025 10:30 AM EST Office Visit [address] [phone] Kayleigh Del Cid MD [address] [place] [address] [address] [place] [address] 01/11/2026 8:15 AM EST Office Visit [facility] [address] [facility] [place] [address] Dirk Hoffman, OD [address] [address] Scheduled Referrals Name Type Priority [...] 86 <200 mg/dL 06/06/2025 12:33 PM EDT [facility] Comment: Cholesterol Reference Range (age >17 years): Desirable <200 mg/dL Borderline 200 to 239 mg/dL Undesirable >239 mg/dL HDL 53 >=40 mg/dL 06/06/2025 12:33 PM EDT [facility] Comment: HDL Cholesterol Reference Ranges (age >17 years): Female, acceptable > or = 50 mg/dL Male, acceptable > or = 40 mg/dL Triglycerides, Plasma 91 <150 mg/dL 06/06/2025 12:33 PM EDT [facility] Comment: Triglyceride Reference Range (age >17 years): Desirable: <150 mg/dL Borderline high: 150 to 199 mg/dL High: 200 to 499 mg/dL Very high: >499 mg/dL Increased risk of pancreatitis: >1000 mg/dL Cholesterol/HDL Ratio 2 06/06/2025 12:33 PM EDT [facility] LDL, Calculated 15 <100 mg/dL 12:33 PM EDT [facility] Comment: LDL Cholesterol Reference [...] 12 hours? Yes 06/06/2025 12:33 PM EDT [facility] Blood Venous blood specimen / Unknown Venipuncture / Unknown 06/06/2025 10:44 AM EDT 06/06/2025 10:48 AM EDT us Kayleigh Del Cid MD LAB BLOOD ORDERABLES Andreea damico Result [facility] [address] [place] [address] documented in this encounter Visit Diagnoses Diagnosis Coronary arteriosclerosis- Primary Coronary atherosclerosis of unspecified type of vessel, mi'kmaq or graft Pure hypercholesterolemia Depression, unspecified depression [...] documented as of this encounter Care Teams Quarry Boss Relationship Specialty Start Date End Date Kayleigh Del Cid MD [address] [place] [address] PCP - General Internal Medicine 04/02/23 Magalis Ruiz Floor Assembler Shirt Sorter 07/25/22 Imtiaz Caraballo MD [address] [place] [address] Family Medicine 04/02/23 Scottie Solo MD [address] [place] [phone] Consulting Physician Infectious Diseases 01/09/24 documented as of this encounter
--- OUTSIDE RECORDS SUMMARY | 2025-05-16 16:30 | XMS_ITS | Encounter Summary ---
Author Organization [facility] Address [address] [place] [address] Care Team Providers Care Machine Maintenance Name Role Phone Magalis Ruiz Unavailable Unavailable Kayleigh Del Cid MD Primary Care Provider [phone] Imtiaz Caraballo MD Unavailable Unavailab Scottie Davenport MD Unavailable Encounter Details Date Type Department Care Team (Late st Contact Info) Description 05/16/2025 4:30 PM EDT Immunization [facility] [address] [place] [phone] Need for Tdap vaccination (Primary Dx) [...] Description 08/31/2025 1:00 PM EDT Office Visit [address] [phone] Mike Harley PA [address] [place] [address] 11/16/2025 9:30 AM EST Office Visit [address] [phone] Scottie Solo MD [address] [place] [address] 11/16/2025 10:30 AM EST Office Visit [address] [phone] Kayleigh Del Cid MD [address] [place] [phone] 01/11/2026 8:15 AM EST Office Visit [facility] [address] [place] [address] Dirk Hoffman, OD [address] [place] [address] documented as of this encounter [...] Primary Need for prophylactic vaccination with combined gvioardkdo-hkolwux-vjmtdxkvq (DTP) vaccine documented in this encounter Additional [...] documented as of this encounter Care Teams Machine Maintenance Relationship Specialty Start Date End Date Kayleigh Del Cid MD [address] [place] [address] [address] [place] [address] PCP - General Internal Medicine 04/02/23 Magalis Ruiz Lab Engineer Millwright Helper 07/25/22 Imtiaz Caraballo MD [address] [place] [address] [address] [place] [address] Family Medicine 04/02/23 Scottie Solo MD [facility] [address] [place] [address] Consulting Physician Infectious Diseases 01/09/24 documented as of this encounter
--- OUTSIDE RECORDS SUMMARY | 2025-06-06 10:00 | XMS_ITS | Encounter Summary ---
Author Organization [facility] Address [address] [place] [place] [address] Care Team Providers Care Rn Navigator Name Role Phone Magalis Ruiz Unavailable Unavailable Kayleigh Del Cid MD Primary Care Provider [phone] Imtiaz Caraballo MD Unavailable Unavailab Scottie Davenport MD Unavailable Reason for Referral * Consultation (Routine) - Authorized Specialty Diagnoses / Procedures Referred By Contac t Referred To Contact Diagnoses HIV disease ([facility]/HCC) Scottie Solo MD [address] [place] [phone] Phone: tel: fax: Referral ID Status Reason Start Date Expiration Date V isits Requested Visits Authorized [id number] Authorized 06/06/2025 12/06/2026 1 1 * Consultation (Routine) - Authorized Specialty Diagnoses / Procedures Referred By Contac t Referred To Contact Sports Medicine Diagnoses Chronic pain of right knee Scottie Solo MD [address] [place] [phone] Phone: tel: fax: Referral ID Status Reason Start Date Expiration Date Visits Requested Visits Authorized [id number] Authorized Specialty Services Required 06/06/2025 12/06/2026 1 1 Scheduling Instructions Right knee pain Encounter Details Date Type Department Care Team (Late st Contact Info) Description 06/06/2025 10:00 AM EDT Office Visit [facility] [address] [place] [address] Scottie Solo MD [address] [facility] [address] [place] [address] Chronic pain of right knee (Primary Dx); HIV disease (CMS/HCC) Social History Tobacco Use Types Packs/Day Years Used Date Smoking Tobacco: Former Cigarettes Q uit: 1985 Passive Smoke Exposure: Current Smokeless Tobacco: Never Alcohol Use Standard Drinks/Week Comments Not Currently 0 (1 standard drink = 0.6 oz pur e alcohol) quit March 2021 PHQ-2 Answer Date Recorded Patient Health Questionnaire-2 Score 0 06/06/2025 PHQ-9 Answer Date Recorded Patient Health Questionnaire-9 Score 0 06/06/2025 AUDIT-C Answer Date Recorded Q1: How often [...] Sign Reading Time Taken Comments Blood Pressure 130/72 06/06/2025 10:38 AM EDT Pulse 58 06/06/2025 10:06 AM EDT Temperature 36.4 C (97.6 F) 06/06/2025 10:06 AM EDT Respiratory Rate - - Oxygen Saturation 96% 06/06/2025 10:06 AM EDT Inhaled Oxygen Concentration - - Weight 62 kg (136 lb 11 oz) 06/06/2025 10:06 AM EDT Height 152.4 cm (5') 06/06/2025 10:06 AM EDT Body Mass Index 26.69 06/06/2025 10:06 AM EDT documented in this encounter Functional Status * Over the past 2 weeks, how often have you been bothered by any of the following problems? Question Answer Date of Assessment Author Little interest or pleasure in doing things Not at all 06/06/2025 10:06 AM Maribell Schilling Feeling down, depressed, or hopeless Not at all 06/06/2025 10:06 AM Maribell Schilling Patient Health Questionnaire -2 Score 0 06/06/2025 10:06 AM Maribell Schilling * Question Answer Date of Assessment Author Trouble falling or staying asleep, or sleeping too much Not at all 06/06/2025 10:06 AM Maribell Schilling Feeling tired or having benitez le energy Not at all 06/06/2025 10:06 AM Maribell Schilling Poor appetite or overeating Not at all 06/06/2025 10 :06 AM Maribell Schilling Feeling bad about yourself - or that you are a failure or have let yourself or your family down Not at all 06/06/2025 10:06 AM Maribell Tovar Trouble concentrating on thi ngs, such as reading the newspaper or watching television Not at all 06/06/2025 10:06 AM Maribell Schilling Moving or speaking so slowly that other people could have noticed? Or the opposite - being so fidgety or restless that you have been moving around a lot more than usual. Not at all 06/06/2025 10:06 AM Maribell Schilling Thoughts that you would be better off or hurting yourself in some way Not at all 06/06/2025 10:06 AM Maribell Schilling Patient Health Questionnaire -9 Score 0 06/06/2025 10:06 AM Maribell Schilling * If you checked off any problems on this questionnaire so far, Question Answer Date of Assessment Author How difficult have these problems made it for you to do your work, take care of things at home, or get along with other people? Not difficult at all 06/06/2025 10:06 AM EDT Maribell Cummings documented as of this encounter Miscellaneous Notes * Progress Notes - Scottie Solo MD - 06/06/2025 10:00 AM EDT ID RW Established Patient Note HPI Mr. Rodriguez is a 74-year-old male with HIV, diagnosed in 05/2010 came in for follow up. Last?CD4?was?819?(31%), VL <40 copies in?01/2025. He is adherent with Abacavir, lamivudine (adjust with CrCL) and Tivicay. No side effect from medication. He presented to ED on 05/09/25 after mechanical fall. He has been falling recently. He has bilateral knee pain and he feels that he does not have enough strength. Right knee is more painful than the left knee. It was 8/10 intensity. He has seen a sport medicine and had steroid injection in the past. He does not want to see a physical therapist. His DEXA scan was in 01/2024 which showed osteopenia. Colonoscopy was in 2015 which was normal. Patient Active Problem List Diagnosis Depression Degenerative disc disease, lumbar Chronic kidney disease (CKD), stage III (moderate) (CMS/HCC) Benign prostatic hyperplasia Arteriosclerosis of coronary artery Erectile dysfunction HIV disease (CMS/HCC) Primary hypertension Hyperlipidemia Renal osteodystrophy Pap smear of anus with LGSIL Neuropathy Arthritis Trigger finger of left hand Gastroesophageal reflux disease without esophagitis Healthcare maintenance Hearing loss Osteopenia Memory loss Nonrheumatic aortic valve stenosis Fall (on) (from) unspecified stairs and steps, initial encounter Right hip pain Chest pain Abnormal cardiovascular stress test Chronic low back pain Diarrhea Heat exposure Nausea and vomiting Presence of IVC filter Chronic kidney disease Dry skin Bilateral primary osteoarthritis of knee Chronic kidney disease-mineral and bone disorder Anemia due to stage 3b chronic kidney disease Dyspnea Edema of right lower extremity Recurrent falls Human immunodeficiency virus (HIV) disease (CMS/HCC) Hypertensive disorder Back pain with radiation Backache Right knee pain Past Medical History: Diagnosis Date MARGRAET (acute kidney injury) (CMS/HCC) 07/30/2024 Alcohol abuse, episodic 07/21/2015 Alcohol abuse, [...] Fresh blood passed per rectum HIV disease (CMS/HCC) Hyperlipidemia Knee pain Leg pain Low back pain Low back pain Low grade squamous intraepithelial lesion on cytologic smear of anus (LGSIL) Pap smear of anus with LGSIL Male erectile dysfunction, unspecified ED (erectile dysfunction) Myocardial infarction (CMS/HCC) 10/22/2019 Other disorders of iron metabolism Iron [...] D deficiency, unspecified Mild vitamin D deficiency Past Surgical History: Procedure Laterality Date ARTERIAL STENT PLACEMENT N/A Arterial stent placement from [employer] HEMORRHOID SURGERY N/A Hemorrhoidectomy from [employer] Family History Problem Relation Name Age of Onset Stroke Mother Heart attack Father Social History Socioeconomic History Marital status: Spouse name: Not on file Number of children: Not on file Years of education: Not on file Highest education level: Not on file Occupational History Not on file Tobacco Use Smoking status: Former Current packs/day: 0.00 Types: Cigarettes Quit date: 1984 Years since quittin.5 Passive exposure: Current Smokeless tobacco: Never Vaping Use Vaping status: Never Used Substance and Sexual Activity Alcohol use: Not Currently Comment: quit March 2021 Drug use: Yes Types: Marijuana Comment: Drug use: No illicit drug use Sexual activity: Yes Partners: Female Comment: Other Topics Concern Not on file Social History Narrative Not on file Social Drivers of Health Financial Resource Strain: Not on file Food Insecurity: Not on file Transportation Needs: Not on file Physical Activity: Not on file Stress: Not on file Social Connections: Not on file Intimate Partner Violence: Not on file Housing Stability: Not on file Current Outpatient Medications: abacavir (Ziagen) 300 MG tablet, Take 2 tablets by mouth daily., Disp: 60 tablet, Rfl: 5 acetaminophen (Tylenol) 325 MG tablet, TAKE 1-2 TABLETS BY MOUTH EVERY 6 HOURS NEEDED FOR PAIN, Disp: 100 tablet, Rfl: 2 atorvastatin (Lipitor) 80 MG tablet, Take 1 tablet by mouth nightly., Disp: 90 tablet, Rfl: 3 buPROPion XL (Wellbutrin XL) 300 MG 24 hr tablet, Take 1 tablet by mouth daily. Do not crush, chew,or split., Disp: 90 tablet, Rfl: 3 clopidogrel (Plavix) 75 MG tablet, Take 1 tablet (75 mg) by mouth 1 (one) time each day., Disp: 90 tablet, Rfl: 3 diclofenac (Voltaren) 1 % topical gel, Place 1-2 g on the skin if needed (pain). Use sparingly on affected area, Disp: 150 g, Rfl: 11 dolutegravir (Tivicay) 50 MG tablet, Take 1 tablet by mouth daily., Disp: 30 tablet, Rfl: 5 Emollient (Eucerin Daily Hydration) lotion, APPLY DAILY TO ENTIRE BODY AFTER GETTING OUT OF SHOWER,Disp: 500 mL, Rfl: 11 escitalopram (Lexapro) 20 MG tablet, TAKE 1 TABLET BY MOUTH EVERY DAY, Disp: 90 tablet, Rfl: 3 Evolocumab (Repatha SureClick) 140 MG/ML solution auto-injector, Inject 1 mL (140 mg) under the skin every 14 (fourteen) days. Inject 140mg every two weeks subcutaneously., Disp: 6 mL, Rfl: 3 famotidine (Pepcid) 20 MG tablet, Take 1 tablet (20 mg) by mouth 2 (two) times a day as needed for heartburn., Disp: 60 tablet, Rfl: 5 gabapentin (Neurontin) 300 MG capsule, , Disp: , Rfl: HYDROcodone-acetaminophen (Logan) 7.5-325 MG tablet, Take 1 tablet (7.5 mg of hydrocodone) by mouthin the morning and 1 tablet (7.5 mg of hydrocodone) before bedtime., Disp: , Rfl: lamiVUDine (Epivir) 150 MG tablet, Take 1 tablet by mouth daily., Disp: 30 tablet, Rfl: 5 Lidocaine Pain Relief 4 % patch, APPLY ONE PATCH TO AFFECTED AREA FOR 12 HOURS THEN REMOVE AND LEAVE OFF FOR 12 HOURS. USE NEEDED FOR PAIN., Disp: 30 patch, Rfl: 1 loperamide (Imodium) 2 MG capsule, , Disp: , Rfl: methylPREDNISolone acetate (DEPO-Medrol) 80 MG/ML injection, , Disp: , Rfl: metoprolol succinate XL (Toprol-XL) 50 MG 24 hr tablet, Take 1 tablet (50 mg) by mouth 1 (one) timeeach day., Disp: 90 tablet, Rfl: 3 Multiple Vitamins-Minerals (One Daily Mens Health) tablet, TAKE 1 TABLET BY MOUTH DAILY AT LEAST 6 HOURS APART FORM DOLUTEGRAVIR, Disp: 90 tablet, Rfl: 3 nortriptyline (Pamelor) 50 MG capsule, Take 1 capsule (50 mg) by mouth every night., Disp: 90 capsule, Rfl: 3 pantoprazole (ProtoNix) 20 MG EC tablet, Take 1 tablet (20 mg) by mouth 1 (one) time each day before breakfast. Do not crush, chew, or split., Disp: 90 tablet, Rfl: 3 pregabalin (Lyrica) 50 MG capsule, Take 1 capsule (50 mg) by mouth 2 (two) times a day if needed (sciatica pain)., Disp: 60 capsule, Rfl: 2 spironolactone-hydroCHLOROthiazide (Aldactazide) 25-25 MG tablet, Take 1 tablet (25 mg) by mouth daily., Disp: 30 tablet, Rfl: 11 tadalafil (Cialis) 10 MG tablet, Take 1 tablet 30-60 min before sex, Disp: 15 tablet, Rfl: 5 tamsulosin (Flomax) 0.4 MG 24 hr capsule, Take 1 capsule (0.4 mg) by mouth every night., Disp: 90 capsule, Rfl: 3 triamcinolone acetonide (Kenalog-40) 40 MG/ML injection, IM x 1 dose, Disp: , Rfl: Morphine Immunization History Administered Date(s) Administered DTaP, Unspecified [...] Meningococcal MCV4P 09/24/2017, 02/04/2018 Moderna COVID-19 Vaccine (Friction Paint Machine Tender) 12+ years 01/25/2021, 02/22/2021, 07/26/2021 Moderna COVID-19 Vaccine Bivalent 6months+ 08/14/2022 PPD Skin Test (TB Skin Test) 01/02/2012 Pfizer Covid-19 Vaccine 12y+, Wilmer Protein, PF, Sal-Sucrose 01/05/2024, 09/08/2024 Pneumococcal 20-miller Conj Vaccine 03/19/2023 Pneumococcal Conjugate PCV 13 01/29/2013 Pneumococcal Polysaccharide PPV23 04/24/2016 Pneumococcal, Unspecified 08/05/2010 Rsvpref, Recombinant, Protein Subunit, Adjuvent 05/05/2024 Tdap 10/18/2010, 02/27/2015, 05/16/2025 Zoster, Recombinant 09/05/2020, 11/27/2020 Review of Systems Constitutional: Negative for chills, fatigue and fever. Eyes: Negative for pain. Respiratory: Positive for shortness of breath. Negative for cough. Cardiovascular: Negative for chest pain. Musculoskeletal: Negative for arthralgias. Skin: Negative for pallor and rash. Neurological: Positive for light-headedness and headaches. Psychiatric/Behavioral: The patient is nervous/anxious. Visit Vitals BP 130/72 Pulse 58 Temp 36.4 ??C (97.6 ??F) (Oral) Objective Physical Exam: Physical Exam Constitutional: Appearance: Normal appearance. He is well-developed. HENT: Head: Normocephalic and atraumatic. Right Ear: External ear normal. Left Ear: External ear normal. Nose: Nose normal. Mouth/Throat: Mouth: Mucous membranes are moist. Pharynx: Oropharynx is clear. No oropharyngeal exudate or posterior oropharyngeal erythema. Eyes: General: No scleral icterus. Conjunctiva/sclera: Conjunctivae normal. Neck: Thyroid: No thyromegaly. Vascular: No JVD. Cardiovascular: Rate and Rhythm: Normal rate and regular rhythm. Pulses: Normal pulses. Comments: Ejection systolic murmur Pulmonary: Effort: Pulmonary effort is normal. Breath sounds: Normal breath sounds. Musculoskeletal: General: Normal range of motion. Cervical back: Neck supple. Right lower leg: No edema. Left lower leg: No edema. Lymphadenopathy: Cervical: No cervical adenopathy. Skin: General: Skin is warm. Coloration: Skin is not jaundiced or pale. Neurological: Mental Status: He is alert. Mental status is at baseline. Psychiatric: Mood and Affect: Mood normal. Behavior: Behavior normal. Thought Content: Thought content normal. Judgment: Judgment normal. Neisseria gonorrhea DNA PCR Result (no units) Date/Time Value 02/07/2025 0952 Not Detected 01/05/2024 0938 Not Detected 07/18/2023 0853 Not Detected 12/30/2022 1119 Not Detected HIV Quantitative PCR Comment (no units) Date/Time Value 03/26/2021 1151 Reference Interval: Not Detected, Log (Copies/mL) <1.60,Copies/mL <40. 11/27/2020 1202 Reference Interval: Not Detected, Log (Copies/mL) <1.60,Copies/mL <40. 07/17/2020 1216 Reference Interval: Not Detected, Log (Copies/mL) <1.60,Copies/mL <40. 07/21/2019 1138 Reference Interval: Not Detected, Log (Copies/mL) <1.60,Copies/mL <40. Assessment: Problem List Items Addressed This Visit HIV disease (CMS/HCC) Relevant Medications abacavir (Ziagen) 300 MG tablet lamiVUDine (Epivir) 150 MG tablet dolutegravir (Tivicay) 50 MG tablet Other Relevant Orders CBC and Differential Lymphocyte Subset Enumeration (TBNK) Comprehensive Metabolic Panel, Plasma Human Immunodeficiency Virus (HIV-1) Quantitative PCR RPR With Reflex to Titer (Those With Known Syphilis) Follow Up ID Right knee pain - Primary Relevant Orders Ambulatory referral to Orthopaedics Sports Medicine # HIV infection - Last? CD4 ?was ?819?(31%), VL <40 copies in?01/2025. - Continue Abacavir, lamivudine (adjust with CrCL) and Tivicay. - repeat HIV PCR, CD4, RPR, CMP, and STI screening today - refill abacavir, dolutegravir, and lamivudine # Right knee pain - 05/09/25 X ray showed mild tricompartmental osteoarthrosis - Will refer to sports medicine # HTN, CKD stage 3b - FU with primary care nephrology #Recurrent falls - Pt does not want to see a PT # HM - Up to date with vaccines - Colonoscopy done in 2015 - 01/2024 DEXA showed osteopenia. RW Discussion/Summary: HIV Status: HIV positive, AIDS status unknown HAART Status: Yes Pneumocystis Prophylaxis Status: No, not medically indicated Education Provided: Adherence Counseling Scottie Solo MD [address] [phone] documented in this encounter Plan of Treatment Upcoming Encounters Date Type Department Care Team (Late st Contact Info) Description 08/31/2025 1:00 PM EDT Office Visit [address] [phone] Mike Harley PA [address] [place] [address] [address] [place] [address] 11/16/2025 9:30 AM EST Office Visit [address] [phone] Scottie Solo MD [address] [facility] [address] [place] [address] 11/16/2025 10:30 AM EST Office Visit [facility] [address] [place] [address] Kayleigh Del Cid MD [address] [facility] [address] [place] [address] 01/11/2026 8:15 AM EST Office Visit [facility] [address] [facility] [place] [address] Dirk Hoffman, OD [address] [facility] [address] [place] [address] Scheduled Referrals Name Type Priority Associated Diagnoses Order Schedule Ambulatory referral to Orthopaedics Sports Medicine Outpatient Referral Routine Chronic pain of right knee 1 Occurrences starting 06/06/2025 until 12/08/2026 Follow Up ID Outpatient Referral Routine HIV disease ([facility]) Expected: 11/16/2025, Expires: 07/07/2026 documented as of this encounter Goals Goal [...] documented as of this encounter Results * (ABNORMAL) RPR With Reflex to Titer (Those With Known Syphilis) (06/06/2025 10:44 AM EDT) Pathologist [facility] Rapid Plasma Reagin Reactive( A) Non Reactive 06/07/2025 2:21 AM EDT [facility] Blood Venous blood specimen / Unknown Venipuncture / Unknown 06/06/2025 10:44 AM EDT 06/06/2025 10:48 AM EDT us Scottie Solo MD LAB BLOOD ORDERABLES Final Resul t Performing Organization Address [facility] Co de Phone Number [facility] [address] [place] [address] * Human Immunodeficiency Virus (HIV-1) Quantitative PCR (06/06/2025 10:44 AM EDT) Pathologist [facility] Human Immunodeficiency Virus (HIV-1) Quant Interpretation Not Detected Not Detected 06/07/2025 4:21 AM EDT [facility] Blood Venous blood specimen / Unknown Venipuncture / Unknown 06/06/2025 10:44 AM EDT 06/06/2025 10:48 AM EDT Narrative [facility] - 06/07/2025 4:21 AM EDT The Whitley M2000 HIV-1 test is a Real Time in vitro nucleic acid amplification test for the quantitation of Human Immunodeficiency Virus (HIV-1) RNA in human plasma in HIV-infected individuals. It is intended to quantify HIV-1 in patients who are infected with the virus. The dynamic range for this test is log10 = 1.60 to 7.00 and/or 40 to 10,000,000 copies/mL. The limit of detection (LOD) for this assay is 40 copies/mL and the limit of quantitaion (LOQ) is 40 copies/mL. This assay is FDA approved for clinical use. This assay should not be used to screen patients receiving gene therapy with HIV-1 based lentiviral vectors as false positives may be seen. us Scottie Solo MD LAB BLOOD ORDERABLES Final Resul t Performing Organization Address [facility] [place] [address] * (ABNORMAL) Comprehensive Metabolic Panel, Plasma (06/06/2025 10:44 AM EDT) Glucose, Plasma 96 74 - 99 mg/dL 06/06/2025 12:33 PM EDT [facility] BUN, Plasma 23 8 - 23 mg/dL 06/06/2025 12:33 PM EDT [facility] Creatinine, Plasma 2.00(H) 0.70 - 1.20 mg/dL 06/06/2025 12:33 PM EDT [facility] BUN/Creatinine Ratio 12 06/06/2025 12:33 PM EDT [facility] Sodium, Plasma 139 136 - 145 mmol/L 06/06/2025 12:33 PM EDT [facility] Potassium, Plasma 4.9 3.6 - 4.9 mmol/L 06/06/2025 12:33 PM EDT [facility] Chloride, Plasma 101 97 - 107 mmol/L 06/06/2025 12:33 PM EDT [facility] CO2, Plasma 26 22 - 29 mmol/L 06/06/2025 12:33 PM EDT [facility] Anion Gap 12 6 - 16 mmol/L 06/06/2025 12:33 PM EDT [facility] Total Calcium, Plasma 9.4 8.9 - 10.2 mg/dL 06/06/2025 12:33 PM EDT [facility] Total Protein 7.4 6.3 - 7.9 g/dL 06/06/2025 12:33 PM EDT [facility] Albumin, Plasma 4.4 3.5 - 5.2 g/dL 06/06/2025 12:33 PM EDT [facility] AST, Plasma 37 10 - 50 U/L 06/06/2025 12:33 PM EDT [facility] ALT, Plasma 50 10 - 50 U/L 06/06/2025 12:33 PM EDT [facility] Alkaline Phosphatase, Plasma 101 40 - 115 U/L 06/06/2025 12:33 PM EDT [facility] Total Bilirubin, Plasma 0.3 0.2 - 1.1 mg/dL 06/06/2025 12:33 PM EDT [facility] eGFRcr 34.6 mL/min/1.7 3m*2 06/06/2025 12:33 PM EDT [facility] Comment:Reported eGFRcr in m L/min/1.73m2 is based the CKD-EPI 2020 equation that does not use a race coefficient. Blood Venous blood specimen / Unknown Venipuncture / Unknown 06/06/2025 10:44 AM EDT 06/06/2025 10:48 AM EDT us Scottie Solo MD LAB BLOOD ORDERABLES Final Resul t [facility] [address] [place] [address] * (ABNORMAL) Lymphocyte Subset Enumeration (TBNK) (06/06/2025 10:44 AM EDT) Percent CD3 76.4 57.5 - 83.1 % 06/06/2025 7:22 PM EDT [facility] Absolute CD3 1,991 860 - 2,670 cells/uL 06/06/2025 7:22 PM EDT [facility] Percent CD4 32.2 31.5 - 62.4 % 06/06/2025 7:22 PM EDT [facility] Absolute CD4 839 490 - 1,730 cells/uL 06/06/2025 7:22 PM EDT [facility] Percent CD8 41.6(H) 9.5 - 38.3 % 06/06/2025 7:22 PM EDT [facility] Absolute CD8 1,083(H) 160 - 1,070 cells/uL 06/06/2025 7:22 PM EDT [facility] Percent CD19 7.3 6.0 - 24.2 % 06/06/2025 7:22 PM EDT [facility] Absolute CD19 189 73 - 562 cells/uL 06/06/2025 7:22 PM EDT [facility] Percent CD16+CD56 16.0 5.2 - 30.4 % 06/06/2025 7:22 PM EDT [facility] Absolute CD16+CD56 418 110 - 680 cells/uL 06/06/2025 7:22 PM EDT [facility] CD4:CD8 Ratio 0.78 06/06/2025 7:22 PM EDT [facility] Blood Venous blood specimen / Unknown Venipuncture / Unknown 06/06/2025 10:44 AM EDT 06/06/2025 10:48 AM EDT us Scottie Solo MD LAB FLOW CYTOMETRY ORDERABLES Fi nal Result [facility] [address] [place] [address] * (ABNORMAL) CBC and Differential (06/06/2025 10:44 AM EDT) WBC Count 7.74 3.70 - 10.30 10*3/uL LAB HEMATOLOGY METHOD 06/06/2025 12:29 PM EDT [facility] RBC Count 3.42(L) 4.60 - 6.10 10*6/uL LAB HEMATOLOGY METHOD 06/06/2025 12:29 PM EDT [facility] HGB 11.0(L) 13.7 - 17.5 g/dL LAB HEMATOLOGY METHOD 06/06/2025 12:29 PM EDT [facility] HCT 33.2(L) 40.0 - 51.0 % LAB HEMATOLOGY METHOD 06/06/2025 12:29 PM EDT [facility] Platelet Count 165 155 - 369 10*3/uL LAB HEMATOLOGY METHOD 06/06/2025 12:29 PM EDT [facility] MCV 97 79 - 98 fL LAB HEMATOLOGY METHOD 06/06/2025 12:29 PM EDT [facility] MCH 32.2(H) 26.0 - 32.0 pg LAB HEMATOLOGY METHOD 06/06/2025 12:29 PM EDT [facility] MCHC 33.1 30.7 - 35.5 g/dL LAB HEMATOLOGY METHOD 06/06/2025 12:29 PM EDT [facility] RDW 14.0 11.5 - 14.5 % LAB HEMATOLOGY METHOD 06/06/2025 12:29 PM EDT [facility] MPV 10.1 8.8 - 12.5 fL LAB HEMATOLOGY METHOD 06/06/2025 12:29 PM EDT [facility] nRBC 0.0 <=0.0 per 100 WBCs LAB HEMATOLOGY METHOD 06/06/2025 12:29 PM EDT [facility] Differential Type Automated LAB HEMATOLOGY METHOD 06/06/2025 12:29 PM EDT [facility] Neutrophils % 57 % LAB HEMATOLOGY METHOD 06/06/2025 12:29 PM EDT [facility] Lymphocytes % 31 % LAB HEMATOLOGY METHOD 06/06/2025 12:29 PM EDT [facility] Monocytes % 7 % LAB HEMATOLOGY METHOD 06/06/2025 12:29 PM EDT [facility] Eosinophils % 3 % LAB HEMATOLOGY METHOD 06/06/2025 12:29 PM EDT [facility] Basophils % 1 % LAB HEMATOLOGY METHOD 06/06/2025 12:29 PM EDT [facility] Immature Granulocytes % 1 % LAB HEMATOLOGY METHOD 06/06/2025 12:29 PM EDT [facility] Neutrophils Absolute 4.45 1.60 - 6.10 10*3/uL LAB HEMATOLOGY METHOD 06/06/2025 12:29 PM EDT [facility] Lymphocytes Absolute 2.43 1.20 - 3.90 10*3/uL LAB HEMATOLOGY METHOD 06/06/2025 12:29 PM EDT [facility] Monocytes Absolute 0.53 0.30 - 0.90 10*3/uL LAB HEMATOLOGY METHOD 06/06/2025 12:29 PM EDT [facility] Eosinophils Absolute 0.23 0.00 - 0.50 10*3/uL LAB HEMATOLOGY METHOD 06/06/2025 12:29 PM EDT [facility] Basophils Absolute 0.05 0.00 - 0.10 10*3/uL LAB HEMATOLOGY METHOD 06/06/2025 12:29 PM EDT [facility] Immature Granulocytes Absolute 0.05 0.00 - 0.06 10*3/uL LAB HEMATOLOGY METHOD 06/06/2025 12:29 PM EDT [facility] Blood Venous blood specimen / Unknown Venipuncture / Unknown 06/06/2025 10:44 AM EDT 06/06/2025 10:48 AM EDT [facility] 06/06/2025 12:29 PM EDT Therapeutic decision making should be based on absolute values, rather than percentages. us Scottie Solo MD LAB BLOOD ORDERABLES Final Resul t [facility] [address] [place] [address] documented in this encounter Visit Diagnoses Diagnosis Chronic pain of right knee- Primary HIV disease (CMS/HCC) Human immunodeficiency virus [HIV] disease documented in this encounter Additional Health Concerns Active Problems Noted Date Diagnosed Date Treatment Adherence 07/05/2021 Transportation 07/05/2021 Assessment Noted Time PHQ-9 Depression Total Score: 0 06/06/20 25 10:06 AM EDT A fall risk assessment has been complete d for the patient 06/06/2025 10:06 AM EDT A Body Mass Index follow-up plan has been documented for the patient 06/06/2025 10:41 AM EDT documented as of this encounter Care Teams Rn Navigator Relationship Specialty Start Date End Date Kayleigh Del Cid MD [address] [place] [address] PCP - General Internal Medicine 04/02/23 Magalis Ruiz Cv/Cvn Cv Tsc System Operator Bicycle Rental Clerk 07/25/22 Imtiaz Caraballo MD [address] [place] [phone] Family Medicine 04/02/23 Scottie Solo MD [address] [place] [address] Consulting Physician Infectious Diseases 01/09/24 documented as of this encounter
--- OUTSIDE RECORDS SUMMARY | 2025-07-01 16:00 | XMS_ITS | Encounter Summary ---
Author Organization [facility] Address [address] [place] [address] Care Team Providers Care Business Loan Processor Name Role Phone Magalis Ruiz Unavailable Unavailable Kayleigh Del Cid MD Primary Care Provider [phone] Imtiaz Caraballo MD Unavailable Unavailab Scottie Davenport MD Unavailable Reason for Referral * Consultation (Routine) - Authorized Specialty Diagnoses / Procedures Referred By Toni gautam Referred To Contact Physical Therapy Diagnoses Arthritis Falls frequently Mike Harley PA [address] [place] [phone] Phone: tel: fax: Medical Office Building Physical Therapy [address] [facility], [address] [place] [address] Phone: tel: fax: Referral ID Status Reason Start Date Expiration Date Visits Requested Visits Authorized [id number] Authorized Consult and Treat 07/01/2025 12/31/2026 1 1 Scheduling Instructions Should focus on balance, mobility affected by knee pain. He uses a cane for walking assistance * Consultation (Routine) - Authorized Specialty Diagnoses / Procedures Referred By Toni gautam Referred To Contact Diagnoses Arthritis Mike Harley PA [address] [place] [phone] Phone: tel: fax: Referral ID Status Reason Start Date Expiration Date V isits Requested Visits Authorized [id number] Authorized 07/01/2025 12/31/2026 1 1 Encounter Details Date Type Department Care Team (Late st Contact Info) Description 07/01/2025 4:00 PM EDT Office Visit [facility] [address] [place] [address] Mike Harley PA [address] [facility] [address] [place] [address] Falls frequently (Primary Dx); Arthritis [...] Mica King documented as of this encounter Plan of Treatment Upcoming Encounters Date Type Department Care Team (Late st Contact Info) Description 08/31/2025 1:00 PM EDT Office Visit [address] [phone] Mike Harley PA [address] [place] [address] 11/16/2025 9:30 AM EST Office Visit [address] [phone] Scottie Solo MD [address] [place] [address] 11/16/2025 10:30 AM EST Office Visit [address] [phone] Kayleigh Del Cid MD [address] [place] [phone] 01/11/2026 8:15 AM EST Office Visit [facility] [address] [place] [address] Dirk Hoffman, OD [address] [place] [address] Scheduled Referrals Name Type Priority [...] documented as of this encounter Care Teams Business Loan Processor Relationship Specialty Start Date End Date Kayleigh Del Cid MD [address] [phone] PCP - General Internal Medicine 04/02/23 Magalis Ruiz Customer Success Intern Kindergarten Teacher 07/25/22 Imtiaz Caraballo MD [facility] [address] [phone] Family Medicine 04/02/23 Scottie Solo MD [facility] [address] [phone] Consulting Physician Infectious Diseases 01/09/24 documented as of this encounter
[2025-07-06] VITALS (9 sets, daily range): BP systolic 122–170; BP diastolic 51–130; PULSE 55–61; RESP 12–18; TEMP 36.7–36.9; O2SAT 96–98; BMI 20.1
--- NOTE | 2025-07-06 11:14 | PC.NURSE ---
PAtients FSBS was 128
--- NOTE | 2025-07-06 11:16 | ECG_ITS ---
APPROVED REPORT Exam: Resting ECG HR:55 bpm ECG Measurements Heart Rate 55 AXES [place] 200 P 67 QRSd 105 QRS 41 QT 446 T 56 QTc 434 Conclusion SINUS BRADYCARDIA MODERATE ST DEPRESSION [0.05+ mV ST DEPRESSION] ABNORMAL ECG No STEMI Electronically signed by : ELLIS ELENA, 07/07/2025 06:39:21
--- NOTE | 2025-07-06 11:22 | PC.NURSE ---
STROKE ALERT CALLED AT 1122
--- NOTE | 2025-07-06 11:22 | HMH.EDGENADL ---
Discharge Plan Disposition Patient Disposition: Home, Self-Care Condition: Fair Prescriptions Prescriptions: New cefadroxil 500 mg capsule 500 mg PO BID Qty: 10 0RF thiamine HCl (vitamin B1) 100 mg capsule 100 mg PO TID Qty: 90 0RF mecobalamin (vitamin B12) [B12 Active] 1,000 mcg tablet,chewable 1,000 mcg PO DAILY Qty: 30 0RF No Action atorvastatin 80 mg tablet 80 mg PO DAILY clopidogrel 75 mg tablet 75 mg PO DAILY pantoprazole 20 mg tablet,delayed release (DR/EC) 20 mg PO DAILY Repatha SureClick 140 mg/mL pen injector 140 mg SQ Q2W sildenafil 100 mg tablet See Rx Instructions PO DAILY PRN Rx Instructions: Take 1/2 tab prior to sex famotidine 20 mg tablet 20 mg PO BID hydrocodone-acetaminophen 7.5-325 mg tablet 1 tab PO BID bupropion HCl 300 mg tablet extended release 24 hr 300 mg PO DAILY nortriptyline 50 mg capsule 50 mg PO DAILY diclofenac sodium 1 % gel 4 g topical BID Qty: 100 3RF Rx Instructions: apply to lower back tamsulosin 0.4 MG capsule 0.4 mg PO HS lamivudine 150 MG tablet 150 mg PO DAILY abacavir 300 MG tablet 600 mg PO DAILY escitalopram oxalate 20 MG tablet 20 mg PO DAILY [id number]-[id number]-[id number] 1 EACH tablet 1 each PO DAILY dolutegravir 50 MG tablet 50 mg PO DAILY metoprolol succinate 25 MG tablet extended release 24 hr 25 mg PO DAILY Qty: 30 0RF furosemide [Lasix] 20 mg tablet 20 mg PO DAILY 7 Days Qty: 7 0RF Referrals Follow up/Referrals: Barrett Wade MD [Referring, Urology] - See instructions Activity Restrictions/Add. Instructions Additional Instructions/Restrictions: You were seen in the emergency department for weakness in the legs. You are found to have a urinary tract infection. Please complete the prescription above. Please follow-up with urology in 1 week regarding your urinary retention. Please follow-up with your primary care provider regarding establishing with a primary care doctor. If symptoms worsen, or new symptoms develop, please return to the emergency department. Clinical Impressions Clinical Impression: Acute UTI, Acute urinary retention, Difficulty balancing Print Language Print Language: Khmer Discharge ED Provider: Eleazar Harris General Adult HPI General Chief complaint: Neuro Symptoms/Deficit Stated complaint: AMS Time Seen by Provider: 07/06/25 11:22 History of Present Illness HPI narrative: Mr. Rodriguez is a 75-year-old male with past medical history of HIV who presents to the emergency department with bilateral lower extremity weakness, slurred speech. Patient reports that symptoms began this morning, EMS reports that the patient's informed them that symptoms been gradually worsening over the last 2 to 3 days. In the exam today the patient is hemodynamically stable and comfortable, he does have mildly slurred speech and reports that he can tell his speech is not usually this way. He also has mild weakness in both lower extremities. He is able to perform straight leg raises successfully but he did have difficulty with transfer. In the emergency department today the patient does not report any pain, sensory deficits, infectious symptoms. Related Data Home Medications ?Medication ?Instructions ?Recorded ?Confirmed abacavir 300 mg tablet 600 mg PO DAILY HIV 10/19/19 06/28/25 dolutegravir 50 mg tablet 50 mg PO DAILY HIV 10/19/19 06/28/25 escitalopram oxalate 20 mg tablet 20 mg PO DAILY Depression 10/19/19 06/28/25 lamivudine 150 mg tablet 150 mg PO DAILY HIV 10/19/19 06/28/25 vicbzlxb-wm-tqfiy 300 mcg-K 60 1 each PO DAILY Diet supplement 10/19/19 06/28/25 mcg-lycop 600 mcg-lutein 300 mcg tablet tamsulosin 0.4 mg capsule 0.4 mg PO HS prostate 10/19/19 06/28/25 atorvastatin 80 mg tablet 80 mg PO DAILY 02/11/23 06/28/25 clopidogrel 75 mg tablet 75 mg PO DAILY 02/11/23 06/28/25 evolocumab 140 mg/mL subcutaneous 140 mg SQ Q2W 02/11/23 06/28/25 pen injector (Tra Nixon) pantoprazole 20 mg tablet,delayed 20 mg PO DAILY 02/11/23 06/28/25 release sildenafil 100 mg tablet See Rx Instructions PO DAILY PRN 02/11/23 06/28/25 bupropion HCl 300 mg 24 hr tablet, 300 mg PO DAILY Depression 04/15/23 06/28/25 extended release nortriptyline 50 mg capsule 50 mg PO DAILY 04/15/23 06/28/25 famotidine 20 mg tablet 20 mg PO BID 06/28/25 06/28/25 hydrocodone 7.5 mg-acetaminophen 1 tab PO BID 06/28/25 06/28/25 325 mg tablet Previous Rx's ?Medication ?Instructions ?Recorded metoprolol succinate 25 mg 25 mg PO DAILY #30 tabs 10/22/19 tablet,extended release 24 hr diclofenac sodium 1 % topical gel 4 g topical BID #100 grams 02/12/23 furosemide 20 mg tablet (Lasix) 20 mg PO DAILY 1 week #7 tabs 12/15/24 cefadroxil 500 mg capsule 500 mg PO BID #10 caps 07/06/25 mecobalamin (vitamin B12) 1,000 1,000 mcg PO DAILY #30 tabs 07/06/25 mcg chewable tablet (B12 Active) thiamine HCl (vitamin B1) 100 mg 100 mg PO TID #90 caps 07/06/25 capsule Allergies Allergy/AdvReac Type Severity Reaction Status Date / Time morphine Allergy Verified 06/28/25 14:20 [facility] Disclaimer: The information contained in this section may have been updated after the patient was seen, as this information can be updated by other users. Medical History Coronary artery disease Presence of IVC filter History of deep venous thrombosis Abnormal cardiovascular stress test Angina pectoris GERD (gastroesophageal reflux disease) Syncope Chest pain Stage 3 chronic kidney disease Hyperlipidemia Hypertension HIV disease Heat exposure MARGARET (acute kidney injury) Surgical History Stented coronary artery Family History Mother Stroke Social History Smoking Status: Never smoker alcohol intake: former substance use type: marijuana current occupational status: retired Travel in the last 8 weeks?: None household members: spouse and children housing: house caffeine: Yes Have you lived/traveled outside US in past 30 days?: No Contact w/someone who lives/traveled outside US past 30 days?: No Exposure to someone with infectious disease in past 14 days?: No Do you have a fever (greater than 100.4 F or 38 C)?: No Have you tested positive for COVID-19?: No Exposed to someone with COVID-19 in past 14 days?: No Do you have a sore throat?: No Do you have a cough?: No Do you have any weakness?: No Do you have any diarrhea?: No Are you experiencing any unusual bleeding?: No Do you have any muscle aches/pain?: No Do you have any abdominal pain?: No Are you experiencing loss of taste or smell?: No Other Medical History Have you received the Flu Vaccine for this season: No Have you received the Pneumonia Vaccine: Yes ROS Obtained: Yes All systems reviewed & no additional complaints except as documented Physical Exam General General appearance: alert and in no apparent distress Head Head exam: atraumatic and normocephalic Eye Eye exam: Present normal appearance, PERRL and EOMI ENT ENT exam: Present normal exam and normal external ear exam Neck Neck exam: Present normal inspection, full ROM and trachea midline Chest Chest inspection: Present normal inspection and symmetric chest wall rise; Absent tenderness Respiratory Respiratory exam: Absent respiratory distress Cardiovascular Cardiovascular exam: Present regular rate, normal rhythm and other (appears warm and well perfused) Abdominal Exam Abdominal exam: Absent distention or tenderness exam: Absent deferred Extremities Exam Extremities exam: Present normal inspection and full ROM Neurological Exam Neurological exam: Present alert and oriented X3 Psychiatric Psychiatric exam: Present normal affect Skin Skin exam: Present warm and dry Medical Decision Making Medical Records Medical records reviewed: Yes I reviewed the patient's medical records. Screening: Per USPSTF and CDC recommendations, given the prevalence of disease in our region, it is our hospital?s policy to screen for HIV and viral Hepatitis for all patients aged 18 and over and those with ongoing risk factors. [place] Inquiry Pt receiving controlled substance: No [place] was queried for this patient: No Vital Signs: 07/06/25 11:27 07/06/25 12:00 07/06/25 12:02 Temperature 98.1 F Temperature Source Oral Pulse Rate 56 L 55 L Pulse Rate [Right Radial] 55 L Respiratory Rate 16 15 15 Blood Pressure 130/103 H 124/78 Blood Pressure [Right Arm] 122/69 Blood Pressure Mean [Right Arm] 86 Blood Pressure Source Blood Pressure Source [Right Arm] Automatic Cuff Blood Pressure Position Blood Pressure Position [Right Arm] Supine 02 Sat by Pulse Oximetry 96 98 98 Oxygen Delivery Method Room Air 07/06/25 12:31 07/06/25 13:03 07/06/25 14:01 Temperature Temperature Source Pulse Rate Pulse Rate [Right Radial] Respiratory Rate 14 12 17 Blood Pressure 170/79 H 153/61 H 128/51 L Blood Pressure [Right Arm] Blood Pressure Mean [Right Arm] Blood Pressure Source Blood Pressure Source [Right Arm] Blood Pressure Position Blood Pressure Position [Right Arm] 02 Sat by Pulse Oximetry Oxygen Delivery Method 07/06/25 14:30 07/06/25 15:01 07/06/25 15:39 Temperature 98.5 F Temperature Source Oral Pulse Rate 61 56 L Pulse Rate [Right Radial] Respiratory Rate 12 15 18 Blood Pressure 142/76 H 162/130 H 151/78 H Blood Pressure [Right Arm] Blood Pressure Mean [Right Arm] Blood Pressure Source Automatic Cuff Blood Pressure Source [Right Arm] Blood Pressure Position Sitting Blood Pressure Position [Right Arm] 02 Sat by Pulse Oximetry Oxygen Delivery Method Room Air Lab Data Lab results reviewed: Yes I reviewed the patient's lab results. Lab Results 07/06/25 11:24: WBC 6.8, RBC 3.25 L, Hgb 10.9 L, Hct 31.7 L, MCV 97.5 H, MCH 33.5 H, MCHC 34.4, RDW 13.7, Plt Count 164, MPV 9.6, Neut % (Auto) 61.6, Lymph % (Auto) 28.0, [place] % (Auto) 6.6, Eos % (Auto) 3.4, Baso % (Auto) 0.3, Neut # (Auto) 4.2, Lymph # (Auto) 1.9, [place] # (Auto) 0.5, Eos # (Auto) 0.2, Baso # (Auto) 0.0, PT 10.9, INR 0.98, APTT 22.7 L, Sodium 137, Potassium 5.3 H, Chloride 104, Carbon Dioxide 27, Anion Gap 11.3, BUN 21 H, Creatinine 1.90 H, Estimated Creat Clear 24, Estimated GFR 35 L, Est GFR ( Amer) 42 L, Glucose 108 H, Hemoglobin A1c 5.1, Calcium 9.2, Total Bilirubin 0.4, AST 42, ALT 37, Alkaline Phosphatase 98, Troponin I < 0.01, Total Protein 7.3, Albumin 4.3, Globulin 3.0, Albumin/Globulin Ratio 1.4, Plasma/Serum Alcohol < 10 07/06/25 14:05: Urine Color Yellow, Urine Appearance Clear, Urine pH 6.5, Ur Specific Sulphur 1.010, Urine Protein Negative, Urine Glucose (UA) Negative, Urine Ketones Negative, Urine Blood Negative, Urine Nitrate Negative, Urine Bilirubin Negative, Urine Urobilinogen 0.2, Ur Leukocyte Esterase Negative, Urine RBC None, Urine WBC 5-10, Ur Squamous Epith Cells None, Urine Bacteria Trace 07/06/25 11:24 07/06/25 11:24 Orders (Tests/Meds): ED MEDICATIONS Discontinued Medications Generic Name Dose Route Start Last Admin Trade Name Freq PRN Reason Stop Dose Admin Iopamidol 80 ml 07/06/25 11:29 07/06/25 11:31 Iopamidol-370 (76%);100ml Bottle IV 07/06/25 11:30 80 ml ONCE ONE Administration Miscellaneous 1 each 07/06/25 11:23 Consider Pt For Statin At Discharge-Stroke NOTAPPLIC 08/05/25 11:22 NEEDED PRN Reminder for med @discharge Sodium Chloride 50 ml 07/06/25 11:29 07/06/25 11:31 0.9 % Sodium Chloride 50 Ml Vial IV 07/06/25 11:30 50 ml ONCE ONE Administration Sodium Chloride 10 ml 07/06/25 11:29 07/06/25 11:31 Sodium Chloride 0.9% 10ml Syr (Rad Only) IV 07/06/25 11:30 10 ml ONCE ONE Administration Thiamine HCl 100 mg 07/06/25 13:13 07/06/25 13:22 Thiamine 100mg Tablet PO 07/06/25 13:14 100 mg ONCE ONE Administration ORDERS Category Date Time Status CT angio head Stat Cat Scan 07/06/25 11:[address] angio neck Stat Cat Scan 07/06/25 11:[address] head/brain wo con Stat Cat Scan 07/06/25 11:23 Completed Activated Partial Thrombo Time Stat Lab 07/06/25 11:24 Completed Complete Blood Count Auto Diff Stat Lab 07/06/25 11:24 Completed Comprehensive Metabolic Panel Stat Lab 07/06/25 11:24 Completed Ethyl Alcohol Stat Lab 07/06/25 11:24 Completed HIV-1 Quant. RNA PCR Routine Lab 07/06/25 11:26 Ordered Hemoglobin A1C Stat Lab 07/06/25 11:24 Completed Prealbumin Stat Lab 08/06/25 11:24 Received Prothrombin Time INR Stat Lab 07/06/25 11:24 Completed Troponin I Stat Lab 07/06/25 11:24 Completed UA [Urinalysis and Microscopic] Stat Lab 07/06/25 14:05 Completed Medical Decision Narrative: ELISE In summary, this [75-year-old male] presents to the emergency department today with slurred speech, bilateral lower extremity weakness. Initial evaluation the patient revealed a hemodynamically stable, comfortable, otherwise well-appearing male with mildly slurred speech, and 4 out of 5 strength in bilateral lower extremities. Differential diagnosis includes but is not limited to hemorrhagic stroke, ischemic stroke, VA, retained deficits from prior stroke, vitamin deficiency, anemia, intoxication. Based on these concerns, I ordered comprehensive laboratory and imaging workup as described below. ECG personally interpreted by me demonstrates normal sinus rhythm. Labs personally reviewed and interpreted demonstrate mild leukocytosis, mild anemia, megaloblastic pattern, urinalysis positive for bacteria and white blood cells. CT imaging personally interpreted by me demonstrate no sign of acute abnormality, no stroke, no hemorrhage, no fracture. Based on the initial and concerning presentation we made the decision to stroke alert this patient. CT imaging of the head revealed no acute abnormalities. After further interview with the patient's family we think it is most likely that the patient suffered a minor stroke last month and occasionally develops dysarthria and slurred speech in times of stress. On physical exam the patient has 4 out of 5 strength in bilateral lower extremities but slightly reduced proprioception. The patient's history of drinking 2 large alcoholic beverages every night, his megaloblastic anemia, and his reduced proprioception in bilateral lower extremities seems to be most likely a result of chronic alcohol use leading to vitamin deficiencies. Ultimately interpreting the patient's total workup I think it is most likely the patient is suffering from a mild urinary tract infection exacerbating a prior CVA as well as a mild vitamin deficiency leading to reduced proprioception in the lower extremities. We raised concern for the patient's ability to ambulate safely at home but the family assured us that he had a walker in his home and that the home was set up to reduce the risk of him falling. Of note when attempting to get a urine sample we discovered that the patient was retaining a large amount of urine and was having difficulty initiating a urine stream. We recommended placing a Baez catheter and then following up with urologist for voiding trial but the patient denied this treatment and reported that he would rather have a single In-N-Out catheterization then to be discharged with a Baez. Ultimately we felt comfortable stating that this patient did not have a recurrent stroke, or any acutely actionable medical condition. We did offer admission for physical therapy and Occupational Therapy but the patient and family reported that they understood the risks and would prefer to follow-up with these conditions outpatient. Critical Care Critical Care Time Critical Care Time: No
--- NOTE | 2025-07-06 11:23 | CT_ITS ---
FINAL REPORT TECHNIQUE: Multiple axial CT images were performed from the foramen magnum to the vertex without enhancement. This study was performed with techniques to keep radiation doses as low as reasonably achievable, (ALARA). Individualized dose reduction techniques using automated exposure control or adjustment of mA and/or kV according to the patient's size were employed. CLINICAL HISTORY: Possible stroke; slurred speech; dizziness FINDINGS: There is mild age-appropriate atrophy and proportional ventriculomegaly. There is patchy decreased attenuation in the deep white matter, probably due to chronic microvascular ischemia. There is no evidence of hemorrhage. No masses are identified. No extra-axial fluid is seen. The sinuses are normal. IMPRESSION: Atrophy and chronic changes without acute process. Reviewed, Interpreted and Dictated by Eric Cobb MD Transcribed by Michela White Authenticated and [facility]
--- NOTE | 2025-07-06 11:23 | CT_ITS ---
FINAL REPORT TECHNIQUE: thin section axial CT with and without IV contrast supplemented with multiplanar 3-D reconstruction of the head. This study was performed with techniques to keep radiation doses as low as reasonably achievable, (ALARA)individualized dose reduction techniques using automated exposure control or adjustment of mA and/or kV according to the patient's size were employed. CLINICAL HISTORY: possible stroke; slurred speech; dizziness FINDINGS: Patient's head is somewhat asymmetrically positioned which compromises evaluation. The cranial circulation is unremarkable. There is no significant stenosis, aneurysm or occlusion. IMPRESSION: No acute process. Reviewed, Interpreted and Dictated by Eric Cobb MD Transcribed by Michela White Authenticated and [facility]
--- NOTE | 2025-07-06 11:25 | CT_ITS ---
FINAL REPORT TECHNIQUE: NASCET technique utilized for stenosis evaluation. This study was performed with techniques to keep radiation doses as low as reasonably achievable, (ALARA). Individualized dose reduction techniques using automated exposure control or adjustment of mA and/or kV according to the patient's size were employed. CLINICAL HISTORY: possible stroke; slurred speech; dizziness FINDINGS: RIGHT CAROTID: There is moderate vascular calcification at the carotid bifurcation without significant carotid stenosis. LEFT CAROTID: There is moderate vascular calcification at the carotid bifurcation without significant carotid stenosis. VERTEBRALS: The right vertebral artery is dominant. No significant stenosis is present. IMPRESSION: No significant arterial abnormality. Reviewed, Interpreted and Dictated by Eric Cobb MD Transcribed by Michela White Authenticated and [facility]
--- OUTSIDE RECORDS SUMMARY | 2025-07-06 11:25 | XMS_ITS | Encounter Summary ---
Author Organization [facility] Address [address] [place] [address] Care Team Providers Care Interstate Bus Dispatcher Name Role Phone Magalis Ruiz Unavailable Unavailable Kayleigh Del Cid MD Primary Care Provider [phone] Imtiaz Caraballo MD Unavailable Unavailab Scottie Davenport MD Unavailable Reason for Visit * Reason Comments Case Management Transportation odalys herron ([employer]) Encounter Details Date Type Department Care Team (Late st Contact Info) Description 06/06/2025 Patient Outreach [facility] [address] [place] [address] Adrien Lopez Case Management (Transportation assistance ([employer])) Social History Tobacco Use Types Packs/Day Years [...] as of this encounter Functional Status * Over the [...] encounter Miscellaneous Notes * Progress Notes - Adrien Lopez - 06/06/2025 11:59 PM EDT P: Transportation assistance Duration: 15 minutes D/A: Patient met with AM clinic MCM to discuss return trip home from OP appointment at [facility]. MCM reviewed patient's chart to determine Part B eligibility and assessed patient's financial needs, determining transportation assistance would reduce barrier to health care. [facility] provided patient with $25 gas card ([employer]) and completed paperwork with patient. No additional needs were identified during visit. MCM documented communication with patient in [employer] and [employer]. MCM on standby for further assistance as needed. Adrien Lopez LCSW documented in this encounter Plan of Treatment Upcoming Encounters Date Type Department Care Team (Late st Contact Info) Description 08/31/2025 1:00 PM EDT Office Visit [address] [phone] Mike Harley PA [address] [place] [address] 11/16/2025 9:30 AM EST Office Visit [address] [phone] Scottie Solo MD [address] [place] [address] 11/16/2025 10:30 AM EST Office Visit [address] [phone] Kayleigh Del Cid MD [address] [facility] [address] [place] [address] 01/11/2026 8:15 AM EST Office Visit [facility] [address] [place] [address] Dirk Hoffman, OD [address] [place] [address] documented as of this encounter [...] documented as of this encounter Visit Diagnoses Not on filedocumented in this encounter Additional Health Concerns Active [...] documented as of this encounter Care Teams Interstate Bus Dispatcher Relationship Specialty Start Date End Date Kayleigh Del Cid MD [address] [facility] [address] [place] [address] PCP - General Internal Medicine 04/02/23 Magalis Ruiz Nozzle Tender Engagement Executive 07/25/22 Imtiaz Caraballo MD [address] [phone] Family Medicine 04/02/23 Scottie Solo MD [address] [phone] Consulting Physician Infectious Diseases 01/09/24 documented as of this encounter
--- OUTSIDE RECORDS SUMMARY | 2025-07-06 11:25 | XMS_ITS | Encounter Summary ---
Author Organization [facility] Address [address] [place] [address] Care Team Providers Care Air Transportation Provider Name Role Phone Magalis Ruiz Unavailable Unavailable Kayleigh Del Cid MD Primary Care Provider [phone] Imtiaz Caraballo MD Unavailable Unavailab Scottie Davenport MD Unavailable Encounter Details Date Type Department Care Team (Late st Contact Info) Description 06/27/2025 Orders Only [facility] [address] [place] [address] Kayleigh Del Cid MD [address] [facility] [address] [place] [address] Primary hypertension (Primary Dx) Social History Tobacco Use Types [...] on file documented as of this encounter Plan of Treatment Upcoming Encounters Date Type Department Care Team (Late st Contact Info) Description 08/31/2025 1:00 PM EDT Office Visit [address] [phone] Mike Harley PA [address] [place] [address] 11/16/2025 9:30 AM EST Office Visit [address] [phone] Scottie Solo MD [address] [place] [phone] 11/16/2025 10:30 AM EST Office Visit [address] [phone] Kayleigh Del Cid MD [address] [place] [phone] 01/11/2026 8:15 AM EST Office Visit [facility] [address] [facility] [place] [address] Dirk Hoffman, OD [address] [address] documented as of this encounter Goals [...] as of this encounter Visit Diagnoses Diagnosis Primary hypertension- Primary Unspecified essential hypertension documented in this encounter Additional Health Concerns [...] documented as of this encounter Care Teams Air Transportation Provider Relationship Specialty Start Date End Date Kayleigh Del Cid MD [address] [place] [address] PCP - General Internal Medicine 04/02/23 Magalis Ruiz Bmet Equipment Operator/Laborer/Supervisor 07/25/22 Imtiaz Caraballo MD [address] [place] [address] Family Medicine 04/02/23 Scottie Solo MD [address] [place] [address] Consulting Physician Infectious Diseases 01/09/24 documented as of this encounter
--- OUTSIDE RECORDS SUMMARY | 2025-07-06 11:25 | XMS_ITS | Encounter Summary ---
Author Organization [facility] Address [address] [place] [address] Care Team Providers Care Superintendent System Operation Name Role Phone Magalis Ruiz Unavailable Unavailable Kayleigh Del Cid MD Primary Care Provider [phone] Imtiaz Caraballo MD Unavailable Unavailab Scottie Davenport MD Unavailable Reason for Visit * Reason Comments Med Refill Encounter Details Date Type Department Care Team (Late st Contact Info) Description 06/13/2025 Refill [facility] [place] [address] [facility] [place] [address] Jose Doty MD [address] [place] [address] Arteriosclerosis of coronary artery Social History Tobacco Use Types Packs/Day Years [...] Encounters Date Type Department Care Team (Late Contact Info) Description 08/31/2025 1:00 PM EDT Office Visit [address] [phone] [place] [address] [place] [address] [address] [place] [address] 11/16/2025 9:30 AM EST Office Visit [address] [phone] Scottie Solo MD [address] [place] [phone] 11/16/2025 10:30 AM EST Office Visit [address] [phone] Kayleigh Del Cid MD [address] [place] [address] [address] [place] [address] 01/11/2026 8:15 AM EST Office Visit [facility] [address] [facility] [place] [address] Dirk Hoffman, OD [address] [address] documented as of this encounter Goals Goal Patient Goal Type Associated Problems Recent Progress Patient-Stated? Author Patient to remain active in HIV care Care Plan Treatment Adherence On track(2024 11:44 AM EDT) No Cece Castro Patient to remain active on part B services/RW kristen-eligible Care Plan Treatment Adherence On track(2024 11:44 AM EDT) No CastroCece sims L Patient to maintain undetectable viral load Care Plan Treatment Adherence On track(2024 11:44 AM EDT) No Cece Castro Reduce transportation barriers to medical appts PRN Care Plan Transportation On track(2024 11:44 AM EDT) No Cece Castro L Note: Gas cards for travel to clinic documented as of this encounter Visit Diagnoses Diagnosis Arteriosclerosis of coronary artery documented in this encounter Additional Health Concerns [...] documented as of this encounter Care Teams Superintendent System Operation Relationship Specialty Start Date End Date Kayleigh Del Cid MD [address] [place] [address] PCP - General Internal Medicine 04/02/23 Magalis Ruiz Regional Marketing Director Independent Distributor 07/25/22 Imtiaz Caraballo MD [address] [place] [address] Family Medicine 04/02/23 Scottie Solo MD [address] [place] [address] Consulting Physician Infectious Diseases 01/09/24 documented as of this encounter
--- OUTSIDE RECORDS SUMMARY | 2025-07-06 11:25 | XMS_ITS | Encounter Summary ---
Author Organization [facility] Address [address] [place] [address] Care Team Providers Care Gas Pumping Station Operator Name Role Phone Magalis Ruiz Unavailable Unavailable Kayleigh Del Cid MD Primary Care Provider [phone] Imtiaz Caraballo MD Unavailable Unavailab Scottie Davenport MD Unavailable Encounter Details Date Type Department Care Team (Latest Contact Info) Description 06/06/2025 Travel Social History Tobacco Use Types Packs/Day Years [...] -9 Score 0 06/06/2025 10:06 AM Maribell Schillnig * If you checked off any problems on this questionnaire so far, Question Answer Date of Assessment Author How difficult have these problems made it for you to do your work, take care of things at home, or get along with other people? Not difficult at all 06/06/2025 10:06 AM Maribell Schilling documented as of this encounter Plan of Treatment Upcoming Encounters Date Type Department Care Team (Late st Contact Info) Description 08/31/2025 1:00 PM EDT Office Visit [address] [phone] [place] [address] [place] [phone] 11/16/2025 9:30 AM EST Office Visit [address] [address] Scottie Solo MD [address] [place] [address] 11/16/2025 10:30 AM EST Office Visit [address] [phone] Kayleigh Del Cid MD [address] [place] [phone] 01/11/2026 8:15 AM EST Office Visit [facility] [address] [place] [address] Dirk Hoffman, OD [address] [address] documented as of this encounter [...] documented as of this encounter Care Teams Gas Pumping Station Operator Relationship Specialty Start Date End Date Kayleigh Del Cid MD [address] [place] [address] PCP - General Internal Medicine 04/02/23 Magalis Ruiz Partition Assembler Shade Cutter 07/25/22 Imtiaz Caraballo MD [address] [place] [address] Family Medicine 04/02/23 Scottie Solo MD [address] [place] [phone] Consulting Physician Infectious Diseases 01/09/24 documented as of this encounter
--- OUTSIDE RECORDS SUMMARY | 2025-07-06 11:25 | XMS_ITS | Encounter Summary ---
Author Organization [facility] Address [address] [place] [address] Care Team Providers Care Set Up Operator Name Role Phone Magalis Ruiz Unavailable Unavailable Kayleigh Del Cid MD Primary Care Provider [phone] Imtiaz Caraballo MD Unavailable Unavailab Scottie Davenport MD Unavailable Encounter Details Date Type Department Care Team (Late st Contact Info) Description 06/07/2025 Results Follow-Up [facility] [address] [place] [address] Kayleigh Del Cid MD 3101 [facility] [address] [place] [address] Social History Tobacco Use Types Packs/Day Years [...] 08/31/2025 1:00 PM EDT Office Visit [address] [phone] Mike Harley, EILEEN [address] [place] [phone] 11/16/2025 9:30 AM EST Office Visit [address] [phone] Scottie Solo MD [address] [place] [phone] 11/16/2025 10:30 AM EST Office Visit [address] [address] Kayleigh Del Cid MD [address] [place] [address] 01/11/2026 8:15 AM EST Office Visit [facility] [address] [place] [address] Dirk Hoffman, OD [address] [place] [address] documented as of this encounter Goals Goal Patient Goal Type Associated Problems Recent Progress Patient-Stated? Author Patient to remain active in HIV care Care Plan Treatment Adherence On track(2024 11:44 AM EDT) No Matthew Cece L Patient to remain active on part B services/RW kristen-eligible Care Plan Treatment Adherence On track(2024 11:44 AM EDT) No Castro Cece L Patient to maintain undetectable viral load Care Plan Treatment Adherence On track(2024 11:44 AM EDT) No Matthew Cece L Reduce transportation barriers to medical appts PRN [...] documented as of this encounter Care Teams Set Up Operator Relationship Specialty Start Date End Date Kayleigh Del Cid MD [address] [place] [address] PCP - General Internal Medicine 04/02/23 Magalis Ruiz Plastic Welder Emr Implementation Specialist 07/25/22 Imtiaz Caraballo MD [address] [place] [address] Family Medicine 04/02/23 Scottie Solo MD [address] [place] [address] Consulting Physician Infectious Diseases 01/09/24 documented as of this encounter
--- OUTSIDE RECORDS SUMMARY | 2025-07-06 11:25 | XMS_ITS | Encounter Summary ---
Author Organization [facility] Address [address] [place] [address] Care Team Providers Care Director Of Architecture Name Role Phone Magalis Ruiz Unavailable Unavailable Kayleigh Del Cid MD Primary Care Provider + [phone] Imtiaz Caraballo MD Unavailable Unavailab Scottie Davenport MD Unavailable Encounter Details Date Type Department Care Team (Late st Contact Info) Description 06/24/[address] [facility] [address] [place] [address] None, None [address] [place] [address] Social History Tobacco Use Types Packs/Day Years [...] as of this encounter Miscellaneous Notes * Telephone Encounter - Raymond Robin RN - 07/04/2025 9:47 AM EDT ----- Message from Nurse Rayomnd Matamoros sent at 07/04/2025 9:42 AM EDT ----- Regarding: BP cuff Patient called today requesting BP cuff. Patient reports he reached out to someone at the clinic previously for cuff, but does not remember who it was. Patient was previously followed by Magalis. Can we get patient new BP cuff mailed to him? * Telephone Encounter - Kathia Mcknight - 06/28/2025 3:17 PM EDT Status Update Call #1 1st call regarding the status of the initial request. Best contact number: [phone] (mobile) Optimal time of day to reach caller: ANYTIME Additional comments/information from caller: pt calling to check on this. Note: Please do not reply to this message. Follow-up communication and further actions as a result of this message need to be communicated with the patient directly, if the patient is not active onMyChart. If the patient is active on MyChart, they will receive notification of the communication/outcome via buuteeq. * Telephone Encounter - Lucero Whyte Jared - 06/24/2025 4:04 PM EDT Clinical Concern/Question Reason for Call: Pt states he needs a small blood pressure cuff. Please call. Best contact number: [phone] (mobile) Optimal time of day to reach caller: ANYTIME Additional comments/information from caller: Not Applicable Note: Please do not reply to this message. Follow-up communication and further actions as a result of this message need to be communicated with the patient directly, if the patient is not active onMyChart. If the patient is active on MyChart, they will receive notification of the communication/outcome via buuteeq. documented in this encounter Plan of Treatment Upcoming Encounters Date Type Department Care Team (Late st Contact Info) Description 08/31/2025 1:00 PM EDT Office Visit [address] [phone] Mike Harley PA [address] [place] [address] 11/16/2025 9:30 AM EST Office Visit [address] [phone] Scottie Solo MD [address] [place] [address] 11/16/2025 10:30 AM EST Office Visit [address] [phone] Kayleigh Del Cid MD [address] [place] [address] 01/11/2026 8:15 AM EST Office Visit [facility] [address] [place] [address] Dirk Hoffman, OD [address] [facility] [address] [place] [address] documented as of this encounter [...] documented as of this encounter Care Teams Director Of Architecture Relationship Specialty Start [place] [address] [place] [address] 100 [place] [address] PCP - General Internal Medicine 04/02/23 Magalis Ruiz Market Garden Worker Cardiovascular Operating Room Nurse 07/25/22 Imtiaz Caraballo MD [address] [facility] 100 [place] [address] Family Medicine 04/02/23 Scottie Solo MD [facility] [address] [place] [address] Consulting Physician Infectious Diseases 01/09/24 documented as of this encounter
--- OUTSIDE RECORDS SUMMARY | 2025-07-06 11:26 | XMS_ITS | Encounter Summary ---
Author Organization [facility] Address [address] [place] [address] Care Team Providers Care Reliability Technologist Name Role Phone Magalis Ruiz Unavailable Unavailable Kayleigh Del Cid MD Primary Care Provider + [phone] Imtiaz Caraballo MD Unavailable Unavailab Scottie Davenport MD Unavailable Encounter Details Date Type Department Care Team (Late st Contact Info) Description 07/01/[address] [facility] [address] [place] [address] None, None [address] [place] [address] Social History Tobacco Use Types [...] on file documented as of this encounter Miscellaneous Notes * Telephone Encounter - Barbra Colmenares - 07/01/2025 9:57 AM EDT Spoke to pt re: gas cards. * Telephone Encounter - Linda Gutierrez - 07/01/2025 8:46 AM EDT Clinical Concern/Question Reason for Call: Pt will need a gas card for today Best contact number: [phone] (mobile) Optimal time of day to reach caller: ANYTIME Additional comments/information from caller: None Note: Please do not reply to this message. Follow-up communication and further actions as a result of this message need to be communicated with the patient directly, if the patient is not active onMyChart. If the patient is active on MyChart, they will receive notification of the communication/outcome via Bangbitehart. documented in this encounter Plan of Treatment Upcoming Encounters Date Type Department Care Team (Late st Contact Info) Description 08/31/2025 1:00 PM EDT Office Visit [address] [phone] [place] [address] [place] [address] 11/16/2025 9:30 AM EST Office Visit [address] [phone] Scottie Solo MD [address] [place] [address] 11/16/2025 10:30 AM EST Office Visit [facility] [address] [facility] [place] [address] Kayleigh Del Cid MD [address] [facility] [address] [place] [address] 01/11/2026 8:15 AM EST Office Visit [facility] [address] [place] [address] Dirk Hoffman, OD [address] [place] [address] documented as of this encounter [...] documented as of this encounter Care Teams Reliability Technologist Relationship Specialty Start Date End Date Kayleigh Del Cid MD [address] [place] [address] [address] [place] [address] PCP - General Internal Medicine 04/02/23 Magalis Ruiz Dial Polisher Civil Drafting Technician 07/25/22 Imtiaz Caraballo MD [address] [place] [address] Family Medicine 04/02/23 Scottie Solo MD [address] [place] [phone] Consulting Physician Infectious Diseases 01/09/24 documented as of this encounter
--- OUTSIDE RECORDS SUMMARY | 2025-07-06 11:26 | XMS_ITS | Encounter Summary ---
Author Organization [facility] Address [address] [place] [address] Care Team Providers Care Data Modeling Specialist Name Role Phone Magalis Ruiz Unavailable Unavailable Kayleigh Del Cid MD Primary Care Provider [phone] Imtaiz Caraballo MD Unavailable Unavailab Scottie Davenport MD Unavailable Encounter Details Date Type Department Care Team (Late st Contact Info) Description 07/04/[address] [facility] [address] [place] [address] Kayleigh Del Cid MD [address] [facility] [address] [place] [address] Social History Tobacco Use Types [...] Description 08/31/2025 1:00 PM EDT Office Visit [address] [phone] Mike Harley, EILEEN [address] [place] [address] 11/16/2025 9:30 AM EST Office Visit [address] [phone] Scottie Solo MD [address] [place] [phone] 11/16/2025 10:30 AM EST Office Visit [address] [address] Kayleigh Del Cid MD [address] [place] [phone] 01/11/2026 8:15 AM EST Office Visit [facility] [address] [facility] [place] [address] Dirk Hoffman, OD [address] [address] documented as of this encounter Goals Goal Patient Goal Type Associated Problems Recent Progress Patient-Stated? Author Patient to remain active in HIV care Care Plan Treatment Adherence On track(2024 11:44 AM EDT) No Matthew Cece L Patient to remain active on part B services/RW kristen-eligible Care Plan Treatment Adherence On track(2024 11:44 AM EDT) No CastroEzraCece L Patient to maintain undetectable viral load Care Plan Treatment Adherence On track(2024 11:44 AM EDT) No Cece Castro L Reduce transportation barriers to medical appts PRN Care Plan Transportation On track(2024 11:44 AM EDT) No Matthew Cece L Note: Gas cards for travel to clinic documented as of this encounter Visit Diagnoses Diagnosis Coronary arteriosclerosis- Primary Coronary atherosclerosis of unspecified type of vessel, [place] or graft documented in this encounter Additional Health Concerns [...] documented as of this encounter Care Teams Data Modeling Specialist Relationship Specialty Start Date End Date Kayleigh Del Cid MD [address] [place] [address] PCP - General Internal Medicine 04/02/23 Magalis Ruiz Peanut Blancher Pediatric Care Coordinator 07/25/22 Imtiaz Caraballo MD [address] [place] [address] Family Medicine 04/02/23 Scottie Solo MD [address] [place] [address] Consulting Physician Infectious Diseases 01/09/24 documented as of this encounter
--- OUTSIDE RECORDS SUMMARY | 2025-07-06 11:26 | XMS_ITS | Encounter Summary ---
Author Organization [facility] Address [address] [place] [address] Care Team Providers Care Peoplesoft Hr Developer Name Role Phone Magalis Ruiz Unavailable Unavailable Kayleigh Del Cid MD Primary Care Provider [phone] Imtiaz Caraballo MD Unavailable Unavailab Scottie Davenport MD Unavailable Encounter Details Date Type Department Care Team (Late st Contact Info) Description 07/04/2025 Patient Outreach [facility] [address] [place] [address] [place] [address] Social History Tobacco Use Types Packs/Day Years [...] encounter Miscellaneous Notes * Progress Notes - Sarah Syfide Levine - 07/04/2025 11:44 AM EDT Attempted to call pt regarding request for BP cuff. Phone rang, VM full. Pt is up to date in Part Bprogram through 05/2026. Will re-attempt once more to confirm address. documented in this encounter Plan of Treatment Upcoming Encounters Date Type Department Care Team (Late st Contact Info) Description 08/31/2025 1:00 PM EDT Office Visit [address] [phone] Mike Harley, PA [address] [place] [phone] 11/16/2025 9:30 AM EST Office Visit [address] [phone] Scottie Solo MD [address] [place] [address] 11/16/2025 10:30 AM EST Office Visit [address] [address] Kayleigh Del Cid MD [address] [place] [phone] 01/11/2026 8:15 AM EST Office Visit [facility] [address] [place] [address] Dirk Hoffman, OD [address] [place] [address] documented as of this encounter [...] documented as of this encounter Care Teams Peoplesoft Hr Developer Relationship Specialty Start Date End Date Kayleigh Del Cid MD [address] [place] [address] [address] [place], [place] PCP - General Internal Medicine 04/02/23 Magalis Ruiz General Production Worker Human Projectile 07/25/22 Imtiaz Caraballo MD [address] [place] [address] [address] [place], [place] Family Medicine 04/02/23 Scottie Solo MD [address] [place] [address] [address] [place] [address] Consulting Physician Infectious Diseases 01/09/24 documented as of this encounter
--- OUTSIDE RECORDS SUMMARY | 2025-07-06 11:26 | XMS_ITS | Encounter Summary ---
Author Organization [facility] Address [address] [place] [address] Care Team Providers Care Can Bander Operator Name Role Phone Magalis Ruiz Unavailable Unavailable Kayleigh Del Cid MD Primary Care Provider [phone] Imtiaz Caraballo MD Unavailable Unavailab Scottie Davenport MD Unavailable Reason for Visit * Reason Onset Date Comments HCN Clinical Concern/Question 07/06/2025 Difficulty Urinating 07/06/2025 Encounter Details Date Type Department Care Team (Late st Contact Info) Description 07/06/2025 Telephone [facility] [address], [address] [place] [address] Israel Castro MD [address] [place] [address] HCN Clinical Concern/Question; Difficulty Urinating Social History Tobacco Use Types Packs/Day Years [...] encounter Miscellaneous Notes * Telephone Encounter - Mary Lou Nuñez - 07/06/2025 8:12 AM EDT Clinical Concern/Question Reason for Call: Patient would like a call back from a nurse deloris -- having difficulty urinating for about 6 hours. Best contact number: [phone] (mobile) Optimal time of day to reach caller: ANYTIME Additional comments/information from caller: None Note: Please do not reply to this message. Follow-up communication and further actions as a result of this message need to be communicated with the patient directly, if the patient is not active onMyChart. If the patient is active on MyChart, they will receive notification of the communication/outcome via [employer]. documented in this encounter Plan of Treatment Upcoming Encounters Date Type Department Care Team (Late st Contact Info) Description 08/31/2025 1:00 PM EDT Office Visit [address] [phone] Mike Harley PA [address] [place] [address] [address] [place], [place] 11/16/2025 9:30 AM EST Office Visit [address] [phone] Scottie Solo MD [address] [place] [address] [address] [place] [address] 11/16/2025 10:30 AM EST Office Visit [facility] [address] [place] [address] Kayleigh Del Cid MD [address] [facility] [address] [facility] [address] [place] [address] 01/11/2026 8:15 AM EST Office Visit [facility] [address] [place] [address] Dirk Hoffman, OD [address] [place] [address] documented as of this encounter [...] documented as of this encounter Care Teams Can Bander Operator Relationship Specialty Start Date End Date Kayleigh Del Cid MD [address] [place] [phone] PCP - General Internal Medicine 04/02/23 Magalis Ruiz Vegetable I Farmworker Rubber Tire Curer 07/25/22 Imtiaz Caraballo MD [address] [place] [phone] Family Medicine 04/02/23 Scottie Solo MD [address] [place] [phone] Consulting Physician Infectious Diseases 01/09/24 documented as of this encounter
--- OUTSIDE RECORDS SUMMARY | 2025-07-06 11:26 | XMS_ITS | Encounter Summary ---
Author Organization [facility] Address [address] [place] [address] Care Team Providers Care Consumer Loan Specialist Name Role Phone Magalis Ruiz Unavailable Unavailable Kayleigh Del Cid MD Primary Care Provider [phone] Imtiaz Caraballo MD Unavailable Unavailab Scottie Davenport MD Unavailable Encounter Details Date Type Department Care Team (Latest Contact Info) Description 05/09/2025 Travel Social History Tobacco Use Types Packs/Day [...] as of this encounter Functional Status * Calculated C-SSRS Risk Score (Lifetime/Recent) Answer Date of Assessment Author No Risk Indicated 05/09/2025 7:16 PM EDT Page Qiu RN * Question Answer Date of Assessment Author 1. Wish to be (Past 1 Month) No 025 7:16 PM EDT Lazarus, Page M, RN 2. Non-Specific Active Suici juliocesar Thoughts (Past 1 Month) No 05/09/2025 7:16 PM EDT Camryn Qiu RN 6. Suicidal Behavior (Lifetime) No 7:16 PM EDT Page Qiu, RN documented as of this encounter Plan of Treatment Upcoming Encounters Date Type Department Care Team (Late st Contact Info) Description 08/31/2025 1:00 PM EDT Office Visit [address] [address] Mike Harley PA [address] [place] [phone] 11/16/2025 9:30 AM EST Office Visit [address] [phone] Scottie Solo MD [address] [place] [address] 11/16/2025 10:30 AM EST Office Visit [address] [address] Kayleigh Del Cid MD [address] [place] [phone] 01/11/2026 8:15 AM EST Office Visit [facility] [address] [place] [address] Dirk Hoffman, OD [address] [facility] [address] [place] [address] documented as of this encounter Goals Goal Patient Goal Type Associated Problems Recent Progress Patient-Stated? Author Patient to remain active in HIV care Care Plan Treatment Adherence On track(2024 11:44 AM EDT) No Cece Castro Patient to remain active on part B services/RW kristen-eligible Care Plan Treatment Adherence On track(2024 11:44 AM EDT) No Matthew Cece L Patient to maintain undetectable viral [...] Time PHQ-9 Depression Total Score: 0 02/08/20 8:30 AM EDT A fall risk assessment has been complete d for the patient 02/21/2025 1:01 PM EDT A Body Mass Index follow-up plan has been documented for the patient 02/23/2025 2:28 PM EDT documented as of this encounter Care Teams Consumer Loan Specialist Relationship Specialty Start Date End Date Kayleigh Del Cid MD [address] [place] [address] PCP - General Internal Medicine 04/02/23 Magalis Ruiz Food Safety Officer Elevator Constructor Supervisor 07/25/22 Imtiaz Caraballo MD [address] [place] [address] Family Medicine 04/02/23 Scottie Solo MD [address] [place] [address] Consulting Physician Infectious Diseases 01/09/24 documented as of this encounter
--- OUTSIDE RECORDS SUMMARY | 2025-07-06 11:26 | XMS_ITS | Encounter Summary ---
Author Organization [facility] Address [address] [place] [address] Care Team Providers Care Staffing Rn Name Role Phone Magalis Ruiz Unavailable Unavailable Kayleigh Del Cid MD Primary Care Provider [phone] Imtiaz Caraballo MD Unavailable Unavailab Scottie Davenport MD Unavailable Encounter Details Date Type Department Care Team (Late st Contact Info) Description 06/28/2025 Telephone [facility] [address] [place] [address] Scottie Solo MD [address] [facility] [address] [place] [address] Social History Tobacco Use Types [...] encounter Miscellaneous Notes * Telephone Encounter - Lucero Whyte Jared - 06/28/2025 3:55 PM EDT Clinical Concern/Question Reason for Call: Julissa with [facility] primary care is calling to ask for the pt to have asooner apt. States pt has been having many falls and is worried that the pt has had a previous stroke. Please call. Best contact number: Other: [phone] Optimal time of day to reach caller: ANYTIME Additional comments/information from caller: Not Applicable Note: Please do not reply to this message. Follow-up communication and further actions as a result of this message need to be communicated with the patient directly, if the patient is not active onMyChart. If the patient is active on MyChart, they will receive notification of the communication/outcome via [employer]. documented in this encounter Plan of Treatment Upcoming Encounters Date Type Department Care Team (Late st Contact Info) Description 08/31/2025 1:00 PM EDT Office Visit [address] [phone] [place] [address] [place] [address] 11/16/2025 9:30 AM EST Office Visit [address] [phone] Scottie Solo MD [address] [place] [address] 11/16/2025 10:30 AM EST Office Visit [facility] [address] [facility] [place] [address] Kayleigh Del Cid MD [address] [facility] [address] [place] [address] 01/11/2026 8:15 AM EST Office Visit [facility] [address] [place] [address] Dirk Hoffman, OD [address] [place] [address] documented as of this encounter [...] documented as of this encounter Care Teams Staffing Rn Relationship Specialty Start Date End Date Kayleigh Del Cid MD [address] [place] [address] [address] [place] [address] PCP - General Internal Medicine 04/02/23 Magalis Ruiz Loan Administrator Java Grails Developer 07/25/22 Imtiaz Caraballo MD [address] [place] [phone] Family Medicine 04/02/23 Scottie Solo MD [address] [place] [address] [address] [place] [address] Consulting Physician Infectious Diseases 01/09/24 documented as of this encounter
--- OUTSIDE RECORDS SUMMARY | 2025-07-06 11:26 | XMS_ITS | Encounter Summary ---
Author Organization [facility] Address [address] [place] [address] Care Team Providers Care Manganese Breaker Name Role Phone Magalis Ruiz Unavailable Unavailable Kayleigh Del Cid MD Primary Care Provider [phone] Imtiaz Caraballo MD Unavailable Unavailab Scottie Davenport MD Unavailable Encounter Details Date Type Department Care Team (Late st Contact Info) Description 05/16/2025 Patient Outreach [facility] [address] [place] [address] Noman Diallo Social History Tobacco Use Types Packs/Day Years [...] occasion? Less than monthly 05/16/2025 3:13 PM Anrdew Ramos * Over the past 2 weeks, [...] encounter Miscellaneous Notes * Progress Notes - Noman Diallo - 05/16/2025 4:01 PM EDT P: clinic visit Duration 1 hour D/A: [facility] met with pt during clinic visit and provided pt with $25 in gas cards. [facility] completed annual KADAP recertification and individualized care plan review. Annual Recertifications Completed: Documents Provided/Needed: self attestation of income, ID, medicare card Acuity Scale/Care Plan: 30 Medical Care: Pt engaged in consistently engaged in care with occasional missed appointments. Pt has not been engaged in dental care in over 1 year and does not plan on seeking dental care. Medication: pt reports consistent adherence to medications with limited missed doses. CD4 819, CD4%31.1, VL undetectable. Mental health: pt denies hx of BETHANIE or MH. Pt denied current MH concerns, denied SI/HI. Basic needs: pt reports his family has consistent access to basic needs with minimal difficulty. Nocurrent concerns with housing/utilities. Cultural: no reported concerns Financial: pt reports he and his receive SSDI to support him and 2 grandchildren in home. Education/Prevention: pt reports adequate HIV knowledge and risk reduction. documented in this encounter Plan of Treatment Upcoming Encounters Date Type Department Care Team (Late st Contact Info) Description 08/31/2025 1:00 PM EDT Office Visit [address] [address] [place] [address] [place] [address] [address] [place] [address] 11/16/2025 9:30 AM EST Office Visit [address] [phone] [place] [address] [place] [address] [address] [place] [address] 11/16/2025 10:30 AM EST Office Visit [address] [phone] Kayleigh Del Cid MD [address] [place] [address] 01/11/2026 8:15 AM EST Office Visit [facility] [address] [facility] [place] [address] Dirk Hoffman, OD [address] [address] documented as of this encounter [...] documented as of this encounter Care Teams Manganese Breaker Relationship Specialty Start Date End Date Kayleigh Del Cid MD [address] [place] [address] PCP - General Internal Medicine 04/02/23 Magalis Ruiz Matrix Drier Tender Warp Yarn Sorter 07/25/22 Imtiaz Caraballo MD [address] [place] [address] Family Medicine 04/02/23 Scottie Solo MD [address] [place] [address] Consulting Physician Infectious Diseases 01/09/24 documented as of this encounter
--- OUTSIDE RECORDS SUMMARY | 2025-07-06 11:26 | XMS_ITS | Encounter Summary ---
Author Organization [facility] Address [address] [place] [address] Care Team Providers Care Websphere Administrator Name Role Phone Magalis Ruiz Unavailable Unavailable Kayleigh Del Cid MD Primary Care Provider [phone] Imtiaz Caraballo MD Unavailable Unavailab Scottie Davenport MD Unavailable Encounter Details Date Type Department Care Team (Latest Contact Info) Description 07/01/2025 Travel Social History Tobacco Use Types Packs/Day [...] Description 08/31/2025 1:00 PM EDT Office Visit [address] [phone] Mike Harley PA [address] [place] [phone] 11/16/2025 9:30 AM EST Office Visit [address] [phone] Scottie Solo MD [address] [place] [address] 11/16/2025 10:30 AM EST Office Visit [address] [phone] Kayleigh Del Cid MD [address] [place] [phone] 01/11/2026 8:15 AM EST Office Visit [facility] [address] [place] [address] Dirk Hoffman, OD [address] [address] documented as of this encounter [...] documented as of this encounter Care Teams Websphere Administrator Relationship Specialty Start Date End Date Kayleigh Del Cid MD [address] [place] [address] PCP - General Internal Medicine 04/02/23 Magalis Ruiz Distribution Agent Plastic Molding Operator 07/25/22 Imtiaz Caraballo MD [address] [place] [address] Family Medicine 04/02/23 Scottie Solo MD [address] [place] [address] Consulting Physician Infectious Diseases 01/09/24 documented as of this encounter
--- OUTSIDE RECORDS SUMMARY | 2025-07-06 11:26 | XMS_ITS | Encounter Summary ---
Author Organization [facility] Address [address] [place] [address] Care Team Providers Care Brand Communications Manager Name Role Phone Magalis Ruiz Unavailable Unavailable Kayleigh Del Cid MD Primary Care Provider [phone] Imtiaz Caraballo MD Unavailable Unavailab Scottie Davenport MD Unavailable Encounter Details Date Type Department Care Team (Latest Contact Info) Description 05/16/2025 Travel Social History Tobacco Use Types Packs/Day [...] of Assessment Author 5 05/16/2025 3:13 PM Regina Ramos * Question Answer Date of Assessment [...] Description 08/31/2025 1:00 PM EDT Office Visit [address] [phone] Mike Harley PA [address] [place] [address] 11/16/2025 9:30 AM EST Office Visit [address] [phone] Scottie Sloo MD [address] [place] [address] 11/16/2025 10:30 AM EST Office Visit [address] [phone] Kayleigh Del Cid MD [address] [place] [phone] 01/11/2026 8:15 AM EST Office Visit [facility] [address] [place] [address] Dirk Hoffman, OD [address] [address] documented as of this encounter [...] documented as of this encounter Care Teams Brand Communications Manager Relationship Specialty Start Date End Date aKyleigh Del Cid MD [address] [place] [address] PCP - General Internal Medicine 04/02/23 Magalis Ruiz Course Developer Waste Water Plant Operator 07/25/22 Imtiaz Caraballo MD [address] [place] [address] Family Medicine 04/02/23 Scottie Solo MD [address] [place] [address] Consulting Physician Infectious Diseases 01/09/24 documented as of this encounter
--- OUTSIDE RECORDS SUMMARY | 2025-07-06 11:26 | XMS_ITS | Encounter Summary ---
Author Organization [facility] Address [address] [place] [address] Care Team Providers Care Instructional Services Specialist Name Role Phone Magalis Ruiz Unavailable Unavailable Kayleigh Del Cid MD Primary Care Provider [phone] Imtiaz Caraballo MD Unavailable Unavailab Scottie Davenport MD Unavailable Encounter Details Date Type Department Care Team (Latest Contact Info) Description 05/23/2025 Travel Social History Tobacco Use Types Packs/Day [...] Description 08/31/2025 1:00 PM EDT Office Visit [address] [address] [place] [address] [place] [address] [address] [place] [address] 11/16/2025 9:30 AM EST Office Visit [address] [phone] Scottie Solo MD [address] [place] [address] 11/16/2025 10:30 AM EST Office Visit [address] [phone] Kayleigh Del Cid MD [address] [place] [address] 01/11/2026 8:15 AM EST Office Visit [facility] [address] [place] [address] Dirk Hoffman, OD [address] [address] documented as of this encounter [...] documented as of this encounter Care Teams Instructional Services Specialist Relationship Specialty Start Date End Date Kayleigh Del Cid MD [address] [place] [address] PCP - General Internal Medicine 04/02/23 Magalis Ruiz Chief Business Development Officer Frozen Pie Maker 07/25/22 Imtiaz Caraballo MD [address] [place] [address] Family Medicine 04/02/23 Scottie Solo MD [address] [place] [phone] Consulting Physician Infectious Diseases 01/09/24 documented as of this encounter
--- OUTSIDE RECORDS SUMMARY | 2025-07-06 11:26 | XMS_ITS | Encounter Summary ---
Author Organization [facility] Address [address] [place] [address] Care Team Providers Care Elementary Principal Name Role Phone Magalis Ruiz Unavailable Unavailable Kayleigh Del Cid MD Primary Care Provider [phone] Imtiaz Caraballo MD Unavailable Unavailab Scottie Davenport MD Unavailable Reason for Visit * Reason Comments Med Refill Encounter Details Date Type Department Care Team (Late st Contact Info) Description 03/02/[address] [address] Scottie Solo MD [address] [place] [address] [address] [place] [address] Benign prostatic hyperplasia without lower urinary tract symptoms Social History Tobacco Use Types Packs/Day Years Used Date Smoking Tobacco: Former Cigarettes Q uit: 1985 Smokeless Tobacco: Never Alcohol Use Standard Drinks/Week Comments Not Currently 0 (1 standard drink = 0.6 oz pur e alcohol) quit March 2021 PHQ-2 Answer Date Recorded Patient Health Questionnaire-2 Score 3 02/06/2024 PHQ-9 Answer Date Recorded Patient Health Questionnaire-9 Score 8 02/06/2024 PHQ-2A Answer Date Recorded Patient Health Questionnaire-2 [...] Description 08/31/2025 1:00 PM EDT Office Visit [place] [phone] [place] [address] [place] [address] 11/16/2025 9:30 AM EST Office Visit [address] [address] Scottie Solo MD [address] [place] [address] 11/16/2025 10:30 AM EST Office Visit [address] [phone] Kayleigh Del Cid MD [address] [place] [address] 01/11/2026 8:15 AM EST Office Visit [facility] [address] [place] [address] Dirk Hoffman, OD [address] [address] documented as of this encounter [...] as of this encounter Visit Diagnoses Diagnosis Benign prostatic hyperplasia without lower urinary tract symptoms documented in this encounter Additional Health Concerns Active Problems Noted Date Diagnosed Date Treatment Adherence 07/05/2021 Transportation 07/05/2021 Assessment Noted Time PHQ-9 Depression Total Score: 8 02/06/20 24 9:20 AM EST A fall risk assessment has been complete d for the patient 01/26/2024 2:27 PM EST A Body Mass Index follow-up plan has been documented for the patient 02/06/2024 10:04 AM EST documented as of this encounter Care Teams Elementary Principal Relationship Specialty Start Date End Date Kayleigh Del Cid MD [address] [place] [address] PCP - General Internal Medicine 04/02/23 Magalis Ruiz Desulfurizer Operator Stick Puller 07/25/22 Imtiaz Caraballo MD [address] [place] [phone] Family Medicine 04/02/23 Scottie Solo MD [address] [place] [address] Consulting Physician Infectious Diseases 01/09/24 documented as of this encounter
--- OUTSIDE RECORDS SUMMARY | 2025-07-06 11:27 | XMS_ITS | Clinical Summary ---
Author Organization [facility] Address [address] [place] [address] Care Team Providers Care It Software Developer Name Role Phone Magalis Ruiz Unavailable Unavailable Kayleigh Del Cid MD Primary Care Provider [phone] Imtiaz Caraballo MD Unavailable Unavailab Scottie Davenport MD Unavailable Allergies Active Allergy Reactions Criticality Noted Date Comments Morphine Other - please docum ent in the comment field,Nausea High 06/01/2010 Medications loperamide (Imodium) 2 MG capsule 2021 Active HYDROcodone-acetaminop hen (Benson) 7.5-325 MG tablet Take 1 tablet (7.5 mg of hydrocodone) by mouth in the morning and 1 tablet (7.5 mg of hydrocodone) before bedtime. Active methylPREDNISolone acetate (DEPO-Medrol) 80 MG/ML injection 2023 Active pregabalin (Lyrica) 50 MG capsuleIndications:Beena n of right calf Take 1 capsule (50 mg) by mouth 2 (two) times a day if needed (sciatica pain). 60 capsule 2 2023 Active Evolocumab (Repatha SureDonovanick) 140 MG/ML solution auto-injector Inject 1 mL (140 mg) under the skin every 14 (fourteen) days. Inject 140mg every two weeks subcutaneously . 6 mL 3 2023 Active escitalopram (Lexapro) 20 MG tabletIndications:Depr ession, unspecified depression type TAKE 1 TABLET BY MOUTH EVERY DAY 90 tablet 3 2023 Active clopidogrel (Plavix) 75 MG tabletIndications:Adeola riosclerosis of coronary artery Take 1 tablet (75 mg) by mouth 1 (one) time each day. 90 tablet 3 2023 Active diclofenac (Voltaren) 1 % topical gelIndications:Arthrit is Place 1-2 g on the skin if needed (pain). Use sparingly on affected area 150 g 11 2023 Active nortriptyline (Pamelor) 50 MG capsuleIndications:Dep ression, unspecified depression type,Neuropathy Take 1 capsule (50 mg) by mouth every night. 90 capsule 3 2023 Active pantoprazole (ProtoNix) 20 MG EC tabletIndications:Fredo roesophageal reflux disease without esophagitis Take 1 tablet (20 mg) by mouth 1 (one) time each day before breakfast. Do not crush, chew, or split. 90 tablet 3 2023 Active tamsulosin (Flomax) 0.4 MG 24 hr capsuleIndications:Parish ign prostatic hyperplasia without lower urinary tract symptoms Take 1 capsule (0.4 mg) by mouth every night. 90 capsule 3 2023 Active tadalafil (Cialis) 10 MG tabletIndications:Vasc ulogenic erectile dysfunction, unspecified vasculogenic erectile dysfunction type Take 1 tablet 30-60 min before sex 15 tablet 5 2023 Active Emollient (Eucerin Daily Hydration) lotionIndications:Dry skin APPLY DAILY TO ENTIRE BODY AFTER GETTING OUT OF SHOWER 500 mL 11 2023 Active Lidocaine Pain Relief 4 % patch APPLY ONE PATCH TO AFFECTED AREA FOR 12 HOURS THEN REMOVE AND LEAVE OFF FOR 12 HOURS. USE NEEDED FOR PAIN. 30 patch 1 2023 Active gabapentin (Neurontin) 300 MG capsule 2023 Active Multiple Vitamins-Minerals (One Daily Mens Health) tablet TAKE 1 TABLET BY MOUTH DAILY AT LEAST 6 HOURS APART FORM DOLUTEGRAVIR 90 tablet 3 2024 Active famotidine (Pepcid) 20 MG tabletIndications:Fredo roesophageal reflux disease without esophagitis Take 1 tablet (20 mg) by mouth 2 (two) times a day as needed for heartburn. 60 tablet 5 2024 Active spironolactone-hydroCH LOROthiazide (Aldactazide) 25-25 MG tablet Take 1 tablet (25 mg) by mouth daily. 30 tablet 11 2024 Active acetaminophen (Tylenol) 325 MG tabletIndications:HIV disease (CMS/HCC) TAKE 1-2 TABLETS BY MOUTH EVERY 6 HOURS NEEDED FOR PAIN 100 tablet 2 2024 Active triamcinolone acetonide (Kenalog-40) 40 MG/ML injection IM x 1 dose 2024 Active buPROPion XL (Wellbutrin XL) 300 MG 24 hr tabletIndications:Depr ession, unspecified depression type Take 1 tablet by mouth daily. Do not crush, chew, or split. 90 tablet 3 2024 Active atorvastatin (Lipitor) 80 MG tabletIndications:Pure hypercholesterolemia Take 1 tablet by mouth nightly. 90 tablet 3 2024 Active abacavir (Ziagen) 300 MG tabletIndications:HIV disease (CMS/HCC) Take 2 tablets by mouth daily. 60 tablet 5 2024 Active lamiVUDine (Epivir) 150 MG tabletIndications:HIV disease (CMS/HCC) Take 1 tablet by mouth daily. 30 tablet 5 2024 Active dolutegravir (Tivicay) 50 MG tabletIndications:HIV disease (CMS/HCC) Take 1 tablet by mouth daily. 30 tablet 5 2024 Active metoprolol succinate XL (Toprol-XL) 50 MG 24 hr tabletIndications:Adeola riosclerosis of coronary artery TAKE 1 TABLET BY MOUTH DAILY 90 tablet 3 2024 Active diclofenac (Voltaren) 1 % topical gel Place 4 g on the skin 4 times a day. Apply topically to bilateral knees 350 g 2 2024 Active metoprolol succinate XL (Toprol-XL) 50 MG 24 hr tabletIndications:Adeola riosclerosis of coronary artery Take 1 tablet (50 mg) by mouth 1 (one) time each day. 90 tablet 3 06/13 Discontinued Active Problems Problem Noted Date Diagnosed Date Back pain with radiation 04/01/2025 Backache 04/01/2025 Chronic kidney disease-mineral and bone disorder 02/21/2025 Anemia due to stage 3b chronic kidney disease Dyspnea 12/18/2024 Edema of right lower extremity 12/18/2024 Recurrent falls 12/18/2024 Assessment & Plan (05/25/2025 4:26 PM EDT): -discussed importance of treating OA pain that he thinks is causing legs to give out and to carry his cane with him all the time. He has one but doesn't carry because he doesn't need it most of the time but discussed that we can't predict when he will fall Hypertensive disorder 12/18/2024 Right knee pain 12/18/2024 Dry skin 11/22/2024 Assessment & Plan (05/25/2025 4:21 PM EDT): - does not use emollients or lotions after showers - encouraged to moisturize the skin after showers Assessment & Plan (11/22/2024 8:14 PM EST): -apply eucerin daily after bathing Bilateral primary osteoarthritis of knee 024 Assessment & Plan (05/25/2025 4:23 PM EDT): -his knees have repeatedly given out causing falls -he is still considering cortisone shot -strongly encouraged him to consider given worsening functional status Assessment & Plan (11/22/2024 8:16 PM EST): -his knees have repeatedly given out causing falls -refer to ortho to assess instability -he declines equipment needs Chronic kidney disease 09/01/2024 Abnormal cardiovascular stress test 07/30/2024 Heat exposure 07/30/2024 Presence of IVC filter 07/30/2024 Chest pain 07/13/2024 Right hip pain 06/30/2024 Assessment & Plan (09/17/2024 3:27 PM EDT): XRAY R hip 05/2024 was unremarkable Recent steroid injection for R hip sciatica on 09/01/24 Cannot take NSAIDS -referral placed for interventional pain Assessment & Plan (06/30/2024 4:02 PM EDT): Will check X-ray R hip series Suspect bursitis Cannot take NSAIDS, Will rx lidocaine patches Consider PT referral pending X-ray results Patient advised to monitor for and notify provider if having worsening pain, overlying skin changes, swelling, or any new symptoms Acute back pain with sciatica 05/13/2024 Insect bite wound 05/13/2024 Fall (on) (from) unspecified stairs and steps, initial encounter 12/03/2023 Overview (12/03/2023): - Admit to SGT for observation - Multimodal pain control - Tertiary when appropriate - Encourage IS Chronic low back pain 09/10/2023 Memory loss 07/21/2023 Assessment & Plan (05/25/2025 4:25 PM EDT): -memory loss is not rapidly progressive but chronic -Metabolic/infectious workup negative (kidney, liver, syphilis, vit B12) -MRI w/out contrast given renal function- mild chronic small vessel disease -MOCA 08/24 , repeat 11/23 improved to 20/30 -he did not bring advanced directives -difficult to say he has dementia because no identifiable functional deficit but he isn't responsible for many IADLs ( and daughter do most of them) -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 -referred to memory clinic, appt soon- strongly encouraged him to take a close family member with him for corroboration Assessment & Plan (11/22/2024 8:24 PM EST): -memory loss is not rapidly progressive but chronic -Metabolic/infectious workup negative (kidney, liver, syphilis, vit B12) -MRI w/out contrast given renal function- mild chronic small vessel disease -MOCA 08/24 , repeat today improved to 20/30 -he did not bring advanced directives today -difficult to say he has dementia because no identifiable functional deficit but he isn't responsible for many IADLs ( and daughter do most of them) -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 He scored 15/30 -though he reports onset of 1 month, chart review notes that he's previously mentioned minor memory concerns to other providers in past and no other symptoms or PE findings to suggest cause of rapidly progressive dementia such as CJD -he gave me permission to talk to his , will try to correlate timeline and functional status at home. Suggested he bring her to next appt with me. -He has had routine labs (kidney, liver, syphilis recently), will add B12 with next labs -order imaging today- MRI w/out contrast given renal function -if confirms rapidly progressive dementia, will refer to neurology and work with them to get LP -also discussed working on advanced directives now. Sent him with [employer] booklet to review and fill out with his -no evidence of delirium given that he was fully oriented to person, place and time Nonrheumatic aortic valve stenosis 07/21/2023 Nausea and vomiting 02/04/2022 Overview (07/30/2024): Problem Code: R11.0; Problem Code Type: ICD-10; Problem Code: R11.0; Problem Code Type: ICD-10; Problem Code: R11.2; Problem Code Type: ICD-10; Problem Code: R11.2; Problem Code Type: ICD-10; Problem Code: R11.2; Problem Code Type: ICD-10; Problem Code: R11.0; Problem Code Type: ICD-10; Nausea 02/04/2022 Overview (06/17/2025): Problem Code: R11.0; Problem Code Type: ICD-10; Osteopenia 10/08/2021 Assessment & Plan (02/16/2024 8:45 PM EDT): Lab Results Component Value Date VITD25 54.2 11/10/2023 -DEXA 01/24 showed stable measurements, low FRAX -continue to follow q2 yrs -vit D >30 -continue dietary calcium and weight bearing exercise Assessment & Plan (10/08/2021 9:05 AM EST): Lab Results Component Value Date VITD25 58.7 09/05/2020 -DEXA 09/20 showed stable measurements from 2019, low FRAX -continue to follow q2 yrs -vit D >30 -continue dietary calcium and weight bearing exercise Arthritis 06/01/2021 Assessment & Plan (01/01/2022 2:01 PM EST): -chronic, mod-sev; not controlled -cannot take oral NSAIDs 2/2 CKD -continue capsaicin topical, minimal relieif -added topical diclofenac gel BID, continue tylenol -referred to sports med to discuss injections today -may consider trial of PT again in future if not candidate for injections; today he is not interested Assessment & Plan (10/08/2021 9:10 AM EST): -not controlled -cannot take oral NSAIDs 2/2 CKD -continue capsaicin and diclofenac gel PRN -refer to sports med to discuss injections Assessment & Plan (06/01/2021 12:53 PM EDT): -continue capsaicin and diclofenac gel PRN Trigger finger of left hand 06/01/2021 Assessment & Plan (01/01/2022 2:01 PM EST): -chronic, persistent, mod pain -progressing; hand drawing up now -referred to ortho hand again today to discuss possible treatments; missed appt in 10/21 Assessment & Plan (10/08/2021 9:02 AM EST): -getting worse, hand drawing up now -will refer to ortho sports med to discuss possible treatments Assessment & Plan (06/01/2021 12:52 PM EDT): -not severe right now -advised him to let me know if getting worse, can send to hand for injection Gastroesophageal reflux disease without esophagi tis 06/01/2021 Assessment & Plan (05/25/2025 4:20 PM EDT): -Well controlled -continue 20 mg PPI daily + PRN famotidine Assessment & Plan (11/22/2024 8:13 PM EST): -Well controlled -continue 20 mg PPI daily + PRN famotidine Assessment & Plan (02/16/2024 8:42 PM EDT): -improved -continue 20 mg PPI daily + PRN famotidine Assessment & Plan (04/16/2022 3:08 PM EDT): -improved -continue 20 mg PPI daily -since only occasional breakthrough, will give PRN famotidine Assessment & Plan (01/01/2022 2:02 PM EST): -chronic, mild-mod, not controlled -did not start PPI prescribed last visit; has sxs almost daily -reminded to take PPI 20 daily on empty stomach; rx counseling provided today; has 90 day supply Assessment & Plan (06/01/2021 12:51 PM EDT): -having heartburn a few times per week -restart PPI 20 Healthcare maintenance 06/01/2021 Assessment & Plan (05/25/2025 4:26 PM EDT): Healthcare Maintenance Immunizations Immunization History Administered Date(s) [...] Meningococcal MCV4P 09/24/2017, 02/04/2018 Moderna COVID-19 Vaccine ([employer]ist) 12+ years 01/25/2021, 02/22/2021, 07/26/2021 Moderna COVID-19 [...] HGBA1C 5.5 12/30/2022 Referrals Dentist: [facility]: Assessment & Plan (11/22/2024 8:13 PM EST): Healthcare Maintenance Immunizations Immunization History Administered Date(s) [...] Meningococcal MCV4P 09/24/2017, 02/04/2018 Moderna COVID-19 Vaccine ([employer] Specialist) 12+ years 01/25/2021, 02/22/2021, 07/26/2021 Moderna COVID-19 Vaccine Bivalent 6months+ 08/14/2022 PPD Skin Test (TB Skin Test) 01/02/2012 Pfizer Covid-19 Vaccine 12y+, Wilmer Protein, PF, Sal-Sucrose 01/05/2024, 09/08/2024 Pneumococcal 20-miller Conj Vaccine 03/19/2023 Pneumococcal Conjugate PCV 13 01/29/2013 Pneumococcal Polysaccharide PPV23 04/24/2016 Pneumococcal, Unspecified 08/05/2010 Rsvpref, Recombinant, Protein Subunit, Adjuvent 05/05/2024 Tdap 10/18/2010, 02/27/2015 Zoster, Recombinant 09/05/2020, 11/27/2020 - Lab Results [...] HGBA1C 5.5 12/30/2022 Referrals Dentist: [facility]: Assessment & Plan (08/06/2024 3:13 PM EDT): Healthcare Maintenance Immunizations Immunization History Administered Date(s) [...] Meningococcal MCV4P 09/24/2017, 02/04/2018 Moderna COVID-19 Vaccine ([employer] Specialist) 12+ years 01/25/2021, 02/22/2021, 07/26/2021 Moderna COVID-19 Vaccine Bivalent 6months+ 08/14/2022 PPD Skin Test (TB Skin Test) 01/02/2012 [employer] Covid-19 Vaccine 12y+, Wilmer Protein, PF, Sal-Sucrose 01/05/2024 Pneumococcal 20-miller Conj Vaccine 03/19/2023 Pneumococcal Conjugate PCV 13 01/29/2013 Pneumococcal Polysaccharide PPV23 04/24/2016 Pneumococcal, Unspecified 08/05/2010 Rsvpref, Recombinant, Protein Subunit, Adjuvent 05/05/2024 Tdap 10/18/2010, 02/27/2015 Zoster, Recombinant 09/05/2020, 11/27/2020 -high dose flu shot today Cancer Screenings Anal pap: 01/22 negative Colon cancer: normal 2015, next due in 2025 Lung cancer: not indicated, quit > 15 yrs ago Other Screenings DEXA: 01/24 osteopenia, repeat 01/26 AAA: screen negative in 09/18 Labs ASCVD: CAD, on statin A1c: Lab Results Component Value Date HGBA1C 5.5 12/30/2022 Referrals Dentist: [facility]: Assessment & Plan (02/16/2024 8:43 PM EDT): Healthcare Maintenance Immunizations Immunization History Administered Date(s) Administered DTaP, Unspecified 10/18/2010 Hep A / Hep B 10/18/2010, 11/19/2010, 02/28/2011 Hep B, adult 06/06/2014, 10/17/2014 Influenza, Unspecified 09/20/2010, 08/29/2011 Influenza, high-dose, quadrivalent 09/13/2021, 01/05/2024 Influenza, injectable, quadrivalent, preservative free 08/22/2015, 11/04/2018, 11/03/2019, 08/14/2022 Influenza, seasonal, injectable 01/03/2014, 10/17/2014, 08/26/2016, 09/24/2017, 09/05/2020 Influenza, seasonal, injectable, preservative free 07/31/2012 Meningococcal MCV4O 02/06/2024 Meningococcal MCV4P 09/24/2017, 02/04/2018 Moderna COVID-19 Vaccine ([employer] Specialist) 12+ years 01/25/2021, 02/22/2021, 07/26/2021 Moderna COVID-19 Vaccine Bivalent Booster 6months+ 08/14/2022 PPD Skin Test (TB Skin Test) 01/02/2012 [employer] Covid-19 Vaccine 12y+, Wilmer Protein, PF, Sal-Sucrose 01/05/2024 Pneumococcal 20-miller Conj Vaccine 03/19/2023 Pneumococcal Conjugate PCV 13 01/29/2013 Pneumococcal Polysaccharide PPV23 04/24/2016 Pneumococcal, Unspecified 08/05/2010 Tdap 02/27/2015 Zoster, Recombinant 09/05/2020, 11/27/2020 Cancer Screenings Anal pap: 01/22 negative Colon cancer: normal 2015, next due in 2025 Lung cancer: not indicated, quit > 15 yrs ago Other Screenings DEXA: 01/24 osteopenia, repeat 01/26 AAA: screen negative in 09/18 Labs ASCVD: CAD, on statin A1c: Lab Results Component Value Date HGBA1C 5.5 12/30/2022 Referrals Dentist: [facility]: Assessment & Plan (07/31/2022 3:46 PM EDT): Healthcare Maintenance Immunizations Immunization History Administered Date(s) Administered DTaP, Unspecified 10/18/2010 Hep A / Hep B 10/18/2010, 11/19/2010, 02/28/2011 Hep B, adult 06/06/2014, 10/17/2014 Influenza, High Dose Seasonal, Preservative Free 09/13/2021 Influenza, Unspecified 09/20/2010, 08/29/2011 Influenza, injectable, quadrivalent, preservative free 08/22/2015, 11/04/2018, 11/03/2019 Influenza, seasonal, injectable 01/03/2014, 10/17/2014, 08/26/2016, 09/24/2017, 09/05/2020 Influenza, seasonal, injectable, preservative free 07/31/2012 Meningococcal MCV4P 09/24/2017, 02/04/2018 Moderna COVID-19 Vaccine ([employer]ist) 12+ 01/25/2021, 02/22/2021, 07/26/2021 PPD Skin Test (TB Skin Test) 01/02/2012 Pneumococcal Conjugate PCV 13 01/29/2013 Pneumococcal Polysaccharide PPV23 04/24/2016 Pneumococcal, Unspecified 08/05/2010 Tdap 02/27/2015 Zoster, Recombinant 09/05/2020, 11/27/2020 Cancer Screenings ? Anal pap: 01/22 negative ? Colon cancer: normal 2015, next due in 2025 ? Lung cancer: not indicated, quit > 15 yrs ago Other Screenings ? DEXA: 09/20 showed osteopenia, due 09/22 ? AAA: screen negative in 09/18 Labs ? ASCVD: CAD, on statin ? A1c: No results found for: HGBA1C, HGBA1C, GLU Referrals ? Dentist: [facility] ? Ophthalmology: referred 09/20 ? Hearing loss: getting hearing aids ? Assessment & Plan (04/16/2022 3:08 PM EDT): Healthcare Maintenance Immunizations Immunization History Administered Date(s) Administered DTaP, Unspecified 10/18/2010 Hep A / Hep B 10/18/2010, 11/19/2010, 02/28/2011 Hep B, adult 06/06/2014, 10/17/2014 Influenza, High Dose Seasonal, Preservative Free 09/13/2021 Influenza, Unspecified 09/20/2010, 08/29/2011 Influenza, injectable, quadrivalent, preservative free 08/22/2015, 11/04/2018, 11/03/2019 Influenza, seasonal, injectable 01/03/2014, 10/17/2014, 08/26/2016, 09/24/2017, 09/05/2020 Influenza, seasonal, injectable, preservative free 07/31/2012 Meningococcal MCV4P 09/24/2017, 02/04/2018 Moderna SARS-CoV-2 Vaccination 01/25/2021, 02/22/2021, 07/26/2021 PPD Skin Test (TB Skin Test) 01/02/2012 Pneumococcal Conjugate PCV 13 01/29/2013 Pneumococcal Polysaccharide PPV23 04/24/2016 Pneumococcal, Unspecified 08/05/2010 Tdap 02/27/2015 Zoster, Recombinant 09/05/2020, 11/27/2020 Cancer Screenings ? Anal pap: 09/19 > repeat due now; done today, refer to colorectal for anoscopy if LSIL again; pt has prior hx LSIL as above. ? Colon cancer: normal 2015, next due in 2025 ? Lung cancer: not indicated, quit > 15 yrs ago Other Screenings ? DEXA: 09/20 showed osteopenia, due 09/22 ? AAA: screen negative in 09/18 Labs ? ASCVD: CAD, on statin ? A1c: No results found for: HGBA1C, HGBA1C, GLU Referrals ? Dentist: [facility] ? Ophthalmology: referred 09/20 ? Hearing loss: getting hearing aids ? Assessment & Plan (01/01/2022 2:07 PM EST): Healthcare Maintenance Immunizations Immunization History Administered Date(s) Administered DTaP, Unspecified 10/18/2010 Hep A / Hep B 10/18/2010, 11/19/2010, 02/28/2011 Hep B, adult 06/06/2014, 10/17/2014 Influenza, High Dose Seasonal, Preservative Free 09/13/2021 Influenza, Unspecified 09/20/2010, 08/29/2011 Influenza, injectable, quadrivalent, preservative free 08/22/2015, 11/04/2018, 11/03/2019 Influenza, seasonal, injectable 01/03/2014, 10/17/2014, 08/26/2016, 09/24/2017, 09/05/2020 Influenza, seasonal, injectable, preservative free 07/31/2012 Meningococcal MCV4P 09/24/2017, 02/04/2018 Moderna SARS-CoV-2 Vaccination 01/25/2021, 02/22/2021, 07/26/2021 PPD Skin Test (TB Skin Test) 01/02/2012 Pneumococcal Conjugate PCV 13 01/29/2013 Pneumococcal Polysaccharide PPV23 04/24/2016 Pneumococcal, Unspecified 08/05/2010 Tdap 02/27/2015 Zoster, Recombinant 09/05/2020, 11/27/2020 vaccines UTD Cancer Screenings ? Anal pap: 09/19 > repeat due now; done today, refer to colorectal for anoscopy if LSIL again; pt has prior hx LSIL as above. ? Colon cancer: normal 2015, next due in 2025 ? Lung cancer: not indicated, quit > 15 yrs ago Other Screenings ? DEXA: 11/18 showed osteopenia, due 11/20; Vit D levels ordered ? AAA: screen negative in 09/18 Labs ? ASCVD: @RESUFAST(LDLCALC) ? A1c: No results found for: HGBA1C, HGBA1C, GLU Referrals ? Dentist: [facility] ? Ophthalmology: referred 09/20 ? Hearing loss: chronic, agreeable for audiology referral for audiometry assessment; open to discuss hearing aid options pending insurance coverage next time ? Assessment & Plan (10/08/2021 9:07 AM EST): Healthcare Maintenance Immunizations Immunization History Administered Date(s) Administered DTaP, Unspecified 10/18/2010 Hep A / Hep B 10/18/2010, 11/19/2010, 02/28/2011 Hep B, adult 06/06/2014, 10/17/2014 Influenza, Unspecified 09/20/2010, 08/29/2011 Influenza, injectable, quadrivalent, preservative free 08/22/2015, 11/04/2018, 11/03/2019 Influenza, seasonal, injectable 01/03/2014, 10/17/2014, 08/26/2016, 09/24/2017, 09/05/2020 Influenza, seasonal, injectable, preservative free 07/31/2012 Meningococcal MCV4P 09/24/2017, 02/04/2018 Moderna SARS-CoV-2 Vaccination 01/25/2021, 02/22/2021, 07/26/2021 PPD Skin Test (TB Skin Test) 01/02/2012 Pneumococcal Conjugate PCV 13 01/29/2013 Pneumococcal Polysaccharide PPV23 04/24/2016 Pneumococcal, Unspecified 08/05/2010 Tdap 02/27/2015 Zoster, Recombinant 09/05/2020, 11/27/2020 -will get flu at local pharmacy Cancer Screenings ? Anal pap: 09/19 > follow-up due next visit ? Colon cancer: normal 2015, next due in 2025 ? Lung cancer: not indicated, quit > 15 yrs ago Other Screenings ? DEXA: 09/20 showed osteopenia, due 09/22 ? AAA: screen negative in 09/18 Labs ? ASCVD: CAD, on statin ? A1c: 6% in 2019 Referrals ? Dentist: [facility] ? Ophthalmology: appt this month ? Assessment & Plan (06/01/2021 1:05 PM EDT): Healthcare Maintenance Immunizations Immunization History Administered Date(s) Administered DTaP, Unspecified 10/18/2010 Hep A / Hep B 10/18/2010, 11/19/2010, 02/28/2011 Hep B, adult 06/06/2014, 10/17/2014 Influenza, Unspecified 09/20/2010, 08/29/2011 Influenza, injectable, quadrivalent, preservative free 08/22/2015, 11/04/2018, 11/03/2019 Influenza, seasonal, injectable 01/03/2014, 10/17/2014, 08/26/2016, 09/24/2017, 09/05/2020 Influenza, seasonal, injectable, preservative free 07/31/2012 Meningococcal MCV4P 09/24/2017, 02/04/2018 Moderna SARS-CoV-2 Vaccination 01/25/2021, 02/22/2021 PPD Test 01/02/2012 Pneumococcal Conjugate PCV 13 01/29/2013 Pneumococcal Polysaccharide PPV23 04/24/2016 Pneumococcal, Unspecified 08/05/2010 Tdap 02/27/2015 Zoster, Recombinant 09/05/2020, 11/27/2020 Cancer Screenings ? Anal pap: 09/19 > follow-up due 09/20 ? Colon cancer: normal 2015, next due in 2025 ? Lung cancer: not indicated, quit > 15 yrs ago Other Screenings ? DEXA: 11/18 showed osteopenia, due 11/20, vitamin D levels with next labs ? AAA: screen negative in 10/19 Labs ? ASCVD: @RESUFAST(LDLCALC) ? A1c: No results found for: HGBA1C, HGBA1C, GLU Referrals ? Dentist: [facility] ? Ophthalmology: refer today ? Hearing loss 06/01/2021 Assessment & Plan (06/01/2021 1:06 PM EDT): -bilateral hearing loss reported -does not want to go to audiology at this time, maybe in future Diarrhea 04/18/2021 Overview (07/30/2024): Problem Code: R19.7; Problem Code Type: ICD-10; Problem Code: R19.7; Problem Code Type: ICD-10; Arteriosclerosis of coronary artery 11/12/2019 Overview (06/01/2021): - LAD stent placed in Oct 2019 at [facility] Assessment & Plan (05/25/2025 4:24 PM EDT): -no recent anginal pains -Continue current medication regimen (atorva 80, repatha, BB, plavix) -continue to follow with cardiology Assessment & Plan (11/22/2024 8:17 PM EST): -worsening angina -Continue current medication regimen (atorva 80, repatha, BB, plavix) -continue to follow with cardiology -encouraged him to reconsider stress test Assessment & Plan (08/06/2024 3:19 PM EDT): -worsening angina -Continue current medication regimen (atorva 80, repatha, BB, plavix) -continue to follow with cardiology -pending SPECT Assessment & Plan (02/16/2024 8:41 PM EDT): -Stable -Chest pain free at this time -Continue current medication regimen (atorva 80, repatha, BB, plavix) -continue to follow with cardiology Assessment & Plan (07/31/2022 3:49 PM EDT): -Stable -Chest pain free at this time -Continue current medication regimen (atorva 80, repatha, BB, plavix) -Encouraged him to continue to follow with cardiology Assessment & Plan (06/01/2021 12:59 PM EDT): - following with cardiology - recently switched from brilinta/ASA to plavix Benign prostatic hyperplasia 08/04/2019 Assessment & Plan (05/25/2025 4:21 PM EDT): -Well controlled -Continue flomax 0.4 Assessment & Plan (11/22/2024 8:14 PM EST): -Well controlled -Continue flomax 0.4 Assessment & Plan (02/16/2024 8:40 PM EDT): -Well controlled -Continue flomax 0.4 Assessment & Plan (07/31/2022 3:49 PM EDT): Well controlled Continue flomax 0.4 Assessment & Plan (01/01/2022 1:55 PM EST): Well controlled Continue flomax -- refilled today Assessment & Plan (10/08/2021 9:08 AM EST): Well controlled Continue flomax Assessment & Plan (06/01/2021 1:00 PM EDT): Well controlled Continue flomax Renal osteodystrophy 07/22/2016 HIV disease 06/11/2016 Assessment & Plan (01/01/2022 1:56 PM EST): -dx 2009 -on abacavir, lamivudine, tivicay -due for HIV labs now, will obtain today Assessment & Plan (06/01/2021 12:56 PM EDT): -dx 2010 -on abacavir, lamivudine, tivicay Hyperlipidemia 02/15/2016 Assessment & Plan (04/16/2022 3:09 PM EDT): Lab Results Component Value Date CHOL 91 04/08/2022 HDL 53 04/08/2022 LDLCALC 21 04/08/2022 TRIG 85 04/08/2022 Well controlled On statin and PCSK9 inhibitor Assessment & Plan (01/01/2022 1:58 PM EST): -chronic, stable, controlled -LDL 22 on latest labs; repeat in 1 yr -continue atorva 40mg at bedtime -- refilled today -cards considering adding praluent at next visit if still high; would recommend against this given latest levels 08/21 Assessment & Plan (06/01/2021 12:54 PM EDT): -doing better at not missing doses -LDL still elevated -on max dose atorva -cards considering adding praluent at next visit if still high Neuropathy 02/14/2016 Assessment & Plan (05/25/2025 4:25 PM EDT): -Well controlled -Continue nortriptyline qhs Assessment & Plan (11/22/2024 8:24 PM EST): -Well controlled -Continue nortriptyline qhs Assessment & Plan (02/16/2024 8:43 PM EDT): -Well controlled -Continue nortriptyline qhs Assessment & Plan (07/31/2022 3:45 PM EDT): Not controlled Continue nortriptyline at bedtime, increase dose today Assessment & Plan (04/16/2022 3:12 PM EDT): Not controlled Continue nortriptyline at bedtime Stop capsaicin. Will try topical compounded pain cream 4 plus (gabapentin, lamictal, baclofen, lidocaine). If this does not work, can try low dose oral gabapentin, renally dosed Assessment & Plan (01/01/2022 1:59 PM EST): Well controlled Continue nortriptyline qhs Assessment & Plan (06/01/2021 12:53 PM EDT): Well controlled Continue nortriptyline [facility] Chronic kidney disease (CKD), stage III (moderat e) 01/08/2016 Assessment & Plan (05/25/2025 4:21 PM EDT): Lab Results Component Value Date CREATININE 1.87 (H) 05/09/2025 CREATININE 1.95 (H) 03/08/2025 EGFR 37.5 05/09/2025 EGFR 35.7 03/08/2025 -stable -continue lisinopril 5 -following with nephrology, last seen 07/24 with 1 yr follow-up Assessment & Plan (11/22/2024 8:14 PM EST): Lab Results Component Value Date CREATININE 2.10 (H) 07/19/2024 CREATININE 1.91 (H) 01/26/2024 EGFR 32.6 07/19/2024 EGFR 36.8 01/26/2024 -stable -continue lisinopril 5 -following with nephrology, last seen 07/24 with 1 yr follow-up Assessment & Plan (08/06/2024 3:20 PM EDT): Lab Results Component Value Date CREATININE 2.10 (H) 07/19/2024 CREATININE 1.91 (H) 01/26/2024 EGFR 32.6 07/19/2024 EGFR 36.8 01/26/2024 -stable -continue lisinopril 5 -following with nephrology, last seen 07/24 with 1 yr follow-up Assessment & Plan (02/16/2024 8:40 PM EDT): Lab Results Component Value Date CREATININE 1.91 (H) 01/26/2024 CREATININE 2.00 (H) 01/05/2024 EGFR 36.8 01/26/2024 EGFR 34.8 01/05/2024 -stable -continue lisinopril 5 -following with nephrology, last seen 01/24 with 1 yr follow-up Assessment & Plan (07/31/2022 3:49 PM EDT): Lab Results Component Value Date CREATININE 2.21 (H) 04/10/2022 CREATININE 2.01 (H) 04/08/2022 EGFR 30 (L) 04/10/2022 EGFR 36 (L) 04/10/2022 -stable -continue lisinopril 2.5 -following with nephrology, last seen 04/21 with 1 yr follow-up Assessment & Plan (04/16/2022 3:07 PM EDT): Lab Results Component Value Date CREATININE 2.21 (H) 04/10/2022 CREATININE 2.01 (H) 04/08/2022 EGFR 30 (L) 04/10/2022 EGFR 36 (L) 04/10/2022 -stable -following with nephrology, last seen 04/21 with 1 yr follow-up Assessment & Plan (01/01/2022 1:55 PM EST): Lab Results Component Value Date CREATININE 2.11 (H) 12/10/2021 CREATININE 1.82 (H) 07/30/2021 EGFR 31 (L) 12/10/2021 EGFR 38 (L) 12/10/2021 -following with nephrology -improved MARGARET over the summer 2020 on latest labs -avoid NSAIDs. Renally dose medications to current GFR. -on lisinopril 5; normokalemia on latest labs with good BP control; consider switching to CCB, coreg for BP control in the future if ACEi/ARB contraindicated. Assessment & Plan (10/08/2021 9:08 AM EST): Lab Results Component Value Date CREATININE 1.82 (H) 07/30/2021 CREATININE 2.28 (H) 06/01/2021 EGFR 37 (L) 07/30/2021 EGFR 45 (L) 07/30/2021 -following with nephrology -improved from MARGARET this summer -on lisinopril 5 Assessment & Plan (06/01/2021 1:01 PM EDT): -following with nephrology -baseline Cr 1.5-1.9, GFR 35-40 -repeat BMP today since no labs since told he had MARGARET Primary hypertension 07/18/2015 Assessment & Plan (11/22/2024 8:25 PM EST): -not controlled today -he's only been taking lisinopril 2.5 -increase to 10 mg and reassess Assessment & Plan (08/06/2024 3:15 PM EDT): -not controlled today but was normal last week and only mildly elevated at home -continue lisinopril 5 -will monitor closely Assessment & Plan (02/16/2024 8:45 PM EDT): -Well controlled -continue lisinopril 5 Assessment & Plan (07/31/2022 3:45 PM EDT): -explained that BP in 110s/60s is not dangerous if he is asymptomatic -BP is very high today -he is agreeable to restarting lisinopril at prior dose (2.5 mg daily) Pap smear of anus with LGSIL 03/18/2014 Assessment & Plan (01/01/2022 1:59 PM EST): -anal pap 09/18 LSIL -anoscopy in 09/18 showed only hemorrhoids -repeat anoscopy overdue, follows with colorectal surgery but needs to schedule next visit -repeat anal PAP done today Assessment & Plan (06/01/2021 12:59 PM EDT): -anal pap 09/18 LSIL, anoscopy done 09/18 showed only hemorrhoids -repeat anoscopy, has appt w/ colorectal surgery on 09/20/20 Depression 01/29/2013 Assessment & Plan (02/16/2024 8:42 PM EDT): -not controlled -continue wellbutrin 300 -restart lexapro Assessment & Plan (07/31/2022 3:48 PM EDT): -PHQ-9 = 6 -He feels it is suboptimally controlled -Denies SI/HI -Currently on lexapro 20mg daily, nortriptyline 25mg daily and wellbutrin 300mg daily -Will plan to taper off lexapro and then reassess. Will also increase nortriptyline to 50mg daily. Maybe taper off bupropion next visit since he doesn't feel it is helping Assessment & Plan (01/01/2022 1:53 PM EST): Well controlled Continue lexapro and wellbutrin Follows with outside psych Assessment & Plan (10/08/2021 9:07 AM EST): Well controlled Continue lexapro and wellbutrin Assessment & Plan (06/01/2021 1:02 PM EDT): Well controlled Continue lexapro and wellbutrin Degenerative disc disease, lumbar 01/29/2013 Erectile dysfunction 01/21/2013 Assessment & Plan (01/01/2022 1:56 PM EST): Stable, controlled -continue PRN viagra -- not refilled today Assessment & Plan (06/01/2021 12:54 PM EDT): -viagra PRN Human immunodeficiency virus (HIV) disease 12/03 Resolved Problems Problem Noted Date Diagnosed Date Resolved Date Stented coronary artery 09/02/202405/02 Coronary arteriosclerosis 09/01/2024 MARGARET (acute kidney injury) 07/30/2024 Syncope 07/30/2024 11/22/2024 Acute back pain with sciatica 05/13/2024 08/06/2024 Insect bite wound 05/13/2024 11/22/2024 Rib fracture 12/03/2023 02/16/2024 Overview (12/03/2023): Suspect nondisplaced fractures anterolateral right 4th, anterior right 5th anterolateral right 6th and anterolateral right 7th ribs. Subacute rib fractures involving lateral aspect of right ribs 8-10. 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 Syphilis 02/14/2016 11/22/2024 Alcohol abuse, episodic 07/21/201501/2021 Encounters Date Type Department Care Team Description 07/06/2025 Telephone [employer] [facility] [address] [facility], [address] [place] [address] Israel Castro MD HCN Clinical Concern/Question; Difficulty Urinating 07/04/2025 Patient Outreach [address] [phone] Xiomara Sy 07/04/[address] [phone] Kayleigh Del Cid MD 07/01/2025 4:00 PM EDT Office Visit [address] [phone] Mike Harley PA Falls frequently (Primary Dx); Arthritis 07/01/2025 Travel 07/01/[address] [phone] None, None 06/28/[address] [phone] Scottie Solo MD 06/27/2025 Orders Only [address] [phone] Kayleigh Del Cid MD Primary hypertension (Primary Dx) 06/24/[address] [phone] None, None 06/13/2025 [facility] [place] [address] [place] [address] Jose Doty MD Arteriosclerosis of coronary artery 06/07/2025 Results Follow-Up [address] [phone] Kayleigh Del Cid MD 06/06/2025 10:00 AM EDT Office Visit [address] [phone] Scottie Solo MD Chronic pain of right knee (Primary Dx); HIV disease (CMS/HCC) 06/06/2025 Patient Outreach [address] [address] Adrien Lopez Case Management (Transportation assistance (Grabbed)) 06/06/2025 Travel 05/23/2025 Travel 05/16/2025 4:30 PM EDT Immunization [facility] [address] [place] [phone] Need for Tdap vaccination (Primary Dx) 05/16/2025 3:30 PM EDT Office Visit [address] [phone] Kayleigh Del Cid MD Coronary arteriosclerosis (Primary Dx); Pure hypercholesterolemia; Depression, unspecified depression type; Healthcare maintenance; Gastroesophageal reflux disease without esophagitis; Dry skin; Stage 3b chronic kidney disease (CMS/HCC); Benign prostatic hyperplasia with nocturia; Bilateral primary osteoarthritis of knee; Memory loss; Neuropathy; Recurrent falls 05/16/2025 Patient Outreach [address] [place] [address] Yoel Noman Watson 05/16/2025 Travel 05/09/2025 12:58 PM EDT - 05/09/2025 8:27 PM EDT [facility] [address] [place] [address] Jesus Archer MD Dahlgren, Amy E, MD Fall, initial encounter (Primary Dx) Discharge Disposition: Home or Self Care 05/09/2025 Travel 05/05/[address] [phone] Scottie Solo MD HIV disease ([facility]) from Last 3 Months Immunizations Immunization Administration Dates Next Due DTaP, Unspecified 10/18/2010 Hep A / Hep B 02/28/2011,11/19/2010,10/18/2010 Hep B, adult 10/17/2014,06/06/2014 Influenza, High-dose, Split Virus, Trivalent, Injectable, preservative free 08/06/2024 Influenza, Unspecified 08/29/2011,09/20/2010 Influenza, high-dose, quadrivalent 01/05/2024,,09/05/2020 Influenza, injectable, quadr ivalent, preservative free 08/14/2022,11/03/2019,11/04/2018,08/22 Influenza, seasonal, injectable 09/05/20 20,09/24/2017,08/26/2016,10/17,01/03/2014,09/20/2010 Influenza, seasonal, injecta ble, preservative free 07/31/2012 Influenza, seasonal, intrade rmal, preservative free 01/03/2014 Meningococcal MCV4O 02/06/2024 Meningococcal MCV4P 02/04/2018,09/24/2017 Moderna COVID-19 Vaccine (Re d Cap) 12+ years 02/22/2021,01/25/2021 Moderna COVID-19 Vaccine Biv alent 6months+ 08/14/2022 PPD Skin Test (TB Skin Test) 01/02/2012 Pfizer Covid-19 Vaccine 12y+ , Wilmer Protein, PF, Sal-Sucrose 09/08/2024,01/05/2024 Pneumococcal 20-miller Conj Vaccine 03/19/2023 Pneumococcal Conjugate PCV 13 01/29/2013 Pneumococcal Polysaccharide PPV23 04/24/2016 Pneumococcal, Unspecified 08/05/2010 Rsvpref, Recombinant, Protei n Subunit, Adjuvent 05/05/2024 Tdap 05/16/2025,02/27/2015,10/18/2010 Zoster, Recombinant 11/27/2020,09/05/2020 Family History Medical History Relation Name Comments Heart attack Father Stroke Mother Relation Name Status Comments Father Mother Social History Tobacco Use Types Packs/Day Years [...] AM EST Sexual Orientation Not on file Last Filed Vital Signs Vital Sign Reading Time Taken Comments Blood Pressure 108/64 07/01/2025 3:44 PM EDT Pulse 64 07/01/2025 3:44 PM EDT Temperature 36.4 C (97.6 F) 07/01/2025 3:44 PM EDT Respiratory Rate 16 05/16/2025 3:13 PM EDT Oxygen Saturation 97% 07/01/2025 3:44 PM EDT Inhaled Oxygen Concentration - - Weight 62.8 kg (138 lb 7.2 oz) 07/01/2025 3:44 P M EDT Height 152.4 cm (5') 07/01/2025 3:44 PM EDT Body Mass Index 27.04 07/01/2025 3:44 PM EDT Plan of Treatment Upcoming Encounters Date Type Department Care Team (Late st Contact Info) Description 08/31/2025 1:00 PM EDT Office Visit [place] [phone] Mike Harley, PA [address] [place] [address] [address] [place] [address] 11/16/2025 9:30 AM EST Office Visit [place] [phone] Scottie Solo MD [address] [place] [phone] 11/16/2025 10:30 AM EST Office Visit [address] [address] Kayleigh Del Cid MD [address] [place] [phone] 01/11/2026 8:15 AM EST Office Visit [facility] [address] [place] [address] Dirk Hoffman, OD [address] [address] Health Maintenance Due Date Last Done Comments Dental Prophylaxis 1950 Dental X-Ray: Bitewings 1950 [facility]-Medicare Annual Wellness (AWV) 1950 [facility]-/Child/Adol SDOH Screenings 1950 [facility]- SDOH Screenings 1969 [facility]-Adult SDOH Screenings 1969 CT Colonography 1996 FIT-DNA 1996 FIT 1996 FOBT 1996 Sigmoidoscopy 1996 [facility]-Hepatitis A Vaccines (4 of 4 - Hep A Twinrix risk 4-dose series) 10/18/2011 02/28/2011, 11/19/2010, 10/18/2010 [facility]-Abdominal Aortic Aneurysm (AAA) Screening 2016 Dental Oral Exam 08/08/2024 02/05/2024 [id number] Vaccine (7 - Moderna risk 2023- season) 2025 09/08/2024, 01/05/2024, 08/14/2022, Additional history exists [facility]-Influenza Vaccine (#1) 08/01/202508/06, 01/05/2024, 08/14/2022, Additional history exists [facility]-Depression Screening 07/01/2026 07/01/2025, 07/0 05/2025 Colonoscopy 08/21/2026 08/21/2016 [facility]-Colorectal Cancer Screening 08/21/2026 Dental X-Ray: Full Mouth 02/05/2027 02/05/2024 [facility]-DTaP,Tdap,and Td Vaccines (5 - Td or Tdap) 05/16/2035 05/16/2025, 02/27/2015, 10/18/2010, Additional history exists [facility]-Zoster Vaccines Completed 11/27/2020, [facility]-Pneumococcal Vaccine: 50+ Years Completed 03/19/2023, 04/24/2016, 01/29/2013, Additional history exists [facility]-RSV Vaccine: 60+ Years or Completed 05/05/2024 [facility]-Hepatitis C Screening Completed 05/09/2025, [facility]-Obesity Intervention Completed 025, 05/16/2025, 02/21/2025, Additional history exists HPV Vaccines Aged Out No longer eligi ble based on patient's age to complete this topic [facility]-HIB Vaccines Aged Out No longer e ligible based on patient's age to complete this topic [facility]-IPV Vaccines Aged Out No longer e ligible based on patient's age to complete this topic [facility]-Rotavirus Vaccines Aged Out No lo nger eligible based on patient's age to complete this topic Goals Goal Patient Goal Type Associated Problems [...] Note: Gas cards for travel to clinic Procedures Procedure Name Priority Date/Time Associated Diagnosis Comments T. PALLIDUM (SYPHILIS) ANTIBODIES (REFLEX ONLY) Routine 06/06/2025 10:44 AM EDT HIV disease ([facility]) RPR TITER Routine 06/06/2025 10:44 AM EDT HIV disease ([facility]) LIPID PROFILE, PLASMA Routine 06/06/2025 10:44 AM EDT Pure hypercholesterolemia Coronary arteriosclerosis CBC WITH AUTO DIFFERENTIAL Routine 06/06/2025 10:44 AM EDT HIV disease ([facility]) LYMPHOCYTE SUBSET ENUMERATION, TBNK Routine 06/06/2025 10:44 AM EDT HIV disease ([facility]) COMPREHENSIVE METABOLIC PANEL, PLASMA Routine 06/06/2025 10:44 AM EDT HIV disease ([facility]) HUMAN IMMUNODEFICIENCY VIRUS (HIV-1) QUANTITATIVE PCR Routine 06/06/2025 10:44 AM EDT HIV disease (CMS/HCC) RPR WITH REFLEX TO TITER (THOSE WITH KNOWN SYPHILIS) Routine 06/06/2025 10:44 AM EDT HIV disease (CMS/HCC) VITAMIN D 25 HYDROXY Routine 05/23/2025 11:29 AM EDT Stage 3b chronic kidney disease (CMS/HCC) PTH INTACT TOTAL Routine 05/23/2025 11:29 AM EDT Stage 3b chronic kidney disease (CMS/HCC) CBC W/O DIFFERENTIAL Routine 05/23/2025 11:29 AM EDT Stage 3b chronic kidney disease (CMS/HCC) CT BONY PELVIS STAT 05/09/2025 4:19 PM [...] QUANT PCR STAT 05/09/2025 2:40 PM EDT COMPREHENSIVE METABOLIC PANEL, PLASMA STAT 05/09/2025 2:40 PM EDT PROTHROMBIN TIME(PT) / INR STAT 05/09/2025 2:40 PM EDT ANTI XA LEVEL UNFRACTIONATED HEPARIN STAT 05/09/2025 2:40 PM EDT CBC WITH AUTO DIFFERENTIAL STAT 05/09/2025 2:40 PM EDT POCT GLUCOSE METER UNSOLICITED RESULTS Routine 05/09/2025 1:23 PM EDT PANORAMIC RADIOGRAPHIC IMAGE Routine 02/05/2024 1:00 PM EST Encounter for dental examination COMPREHENSIVE ORAL EVALUATION - NEW OR ESTABLISHED PATIENT Routine 02/05/2024 1:00 PM EST Encounter for dental examination COLONOSCOPY 08/21/2016 from Last 3 Months or Most Recently Relevant to Health Maintenance Results * (ABNORMAL) T. Pallidum (Syphilis) antibodies (Reflex only) (06/06/2025 10:44 AM EDT) Syphilis Antibody (IgG+IgM) Reactive( A) Nonreactive 06/07/2025 4:18 AM EDT [facility] Blood Venous blood specimen / Unknown Venipuncture / Unknown 06/06/2025 10:44 AM EDT 06/06/2025 10:48 AM EDT us Scottie Solo MD LAB BLOOD ORDERABLES Final Resul t Performing Organization Address City/[facility]/ZIP Co de Phone Number [facility] [address] [place] [address] * (ABNORMAL) RPR Titer (06/06/2025 10:44 AM EDT) RPR Titer Pos 1:1(A) <1:1 06/07/2025 3:35 AM EDT [facility] Blood Venous blood specimen / Unknown Venipuncture / Unknown 06/06/2025 10:44 AM EDT 06/06/2025 10:48 AM EDT us Scottie Solo MD LAB BLOOD ORDERABLES Final Resul t [facility] [address] [place] [address] * (ABNORMAL) Lymphocyte Subset Enumeration (TBNK) (06/06/2025 10:44 AM EDT) Percent CD3 76.4 57.5 - 83.1 % 06/06/2025 7:22 PM EDT [facility] Absolute CD3 1,991 860 - 2,670 cells/uL 06/06/2025 7:22 PM EDT [facility] Percent CD4 32.2 31.5 - 62.4 % 06/06/2025 7:22 PM EDT [facility] Absolute CD4 839 490 - 1,730 cells/uL 06/06/2025 7:22 PM EDT [facility] Percent CD8 41.6(H) 9.5 - 38.3 % 06/06/2025 7:22 PM EDT [facility] Absolute CD8 1,083(H) 160 - 1,070 cells/uL 06/06/2025 7:22 PM EDT [facility] Percent CD19 7.3 6.0 - 24.2 % 06/06/2025 7:22 PM EDT [facility] Absolute CD19 189 73 - 562 cells/uL 06/06/2025 7:22 PM EDT [facility] Percent CD16+CD56 16.0 5.2 - 30.4 % 06/06/2025 7:22 PM EDT [facility] Absolute CD16+CD56 418 110 - 680 cells/uL 06/06/2025 7:22 PM EDT [facility] CD4:CD8 Ratio 0.78 06/06/2025 7:22 PM EDT [facility] Blood Venous blood specimen / Unknown Venipuncture / Unknown 06/06/2025 10:44 AM EDT 06/06/2025 10:48 AM EDT us Scottie Solo MD LAB FLOW CYTOMETRY ORDERABLES Fi nal Result [facility] [address] [place] [address] * Human Immunodeficiency Virus (HIV-1) Quantitative PCR (06/06/2025 10:44 AM EDT) Pathologist [facility] Human Immunodeficiency Virus (HIV-1) Quant Interpretation Not Detected Not Detected 06/07/2025 4:21 AM EDT [facility] Blood Venous blood specimen / Unknown Venipuncture / Unknown 06/06/2025 10:44 AM EDT 06/06/2025 10:48 AM EDT Narrative [facility] - 06/07/2025 4:21 AM EDT The [...] ORDERABLES Final Resul t Performing Organization Address City/[facility]/ZIP Co de Phone Number [facility] [address] [place] [address] * (ABNORMAL) RPR With Reflex to Titer (Those With Known Syphilis) (06/06/2025 10:44 AM EDT) [facility] Rapid Plasma Reagin Reactive( A) Non Reactive 06/07/2025 2:21 AM EDT [facility] Blood Venous blood specimen / Unknown Venipuncture / Unknown 06/06/2025 10:44 AM EDT 06/06/2025 10:48 AM EDT us Scottie Solo MD LAB BLOOD ORDERABLES Final Resul t Performing Organization Address City/[facility]/ZIP Co de Phone Number [facility] [address] [place] [address] * (ABNORMAL) CBC and Differential (06/06/2025 10:44 AM EDT) Only the most recent of2 resultswithin the time period is included. WBC Count 7.74 3.70 - 10.30 10*3/uL LAB HEMATOLOGY METHOD 06/06/2025 12:29 PM EDT [facility] RBC Count 3.42(L) 4.60 - 6.10 10*6/uL LAB HEMATOLOGY METHOD 06/06/2025 12:29 PM EDT [facility] HGB 11.0(L) 13.7 - 17.5 g/dL LAB HEMATOLOGY METHOD 06/06/2025 12:29 PM EDT [facility] HCT 33.2(L) 40.0 - 51.0 % LAB HEMATOLOGY METHOD 06/06/2025 12:29 PM EDT [facility] Platelet Count 165 155 - 369 10*3/uL LAB HEMATOLOGY METHOD 06/06/2025 12:29 PM EDT [facility] MCV 97 79 - 98 fL LAB HEMATOLOGY METHOD 06/06/2025 12:29 PM EDT [facility] MCH 32.2(H) 26.0 - 32.0 pg LAB HEMATOLOGY METHOD 06/06/2025 12:29 PM EDT [facility] MCHC 33.1 30.7 - 35.5 g/dL LAB HEMATOLOGY METHOD 06/06/2025 12:29 PM EDT [facility] RDW 14.0 11.5 - 14.5 % LAB HEMATOLOGY METHOD 06/06/2025 12:29 PM EDT [facility] MPV 10.1 8.8 - 12.5 fL LAB HEMATOLOGY METHOD 06/06/2025 12:29 PM EDT [facility] nRBC 0.0 <=0.0 per 100 WBCs LAB HEMATOLOGY METHOD 06/06/2025 12:29 PM EDT [facility] Differential Type Automated LAB HEMATOLOGY METHOD 06/06/2025 12:29 PM EDT [facility] Neutrophils % 57 % LAB HEMATOLOGY METHOD 06/06/2025 12:29 PM EDT [facility] Lymphocytes % 31 % LAB HEMATOLOGY METHOD 06/06/2025 12:29 PM EDT [facility] Monocytes % 7 % LAB HEMATOLOGY METHOD 06/06/2025 12:29 PM EDT [facility] [facility] Eosinophils % 3 % LAB HEMATOLOGY METHOD 06/06/2025 12:29 PM EDT [facility] Basophils % 1 % LAB HEMATOLOGY METHOD 06/06/2025 12:29 PM EDT [facility] Immature Granulocytes % 1 % LAB HEMATOLOGY METHOD 06/06/2025 12:29 PM EDT [facility] Neutrophils Absolute 4.45 1.60 - 6.10 10*3/uL LAB HEMATOLOGY METHOD 06/06/2025 12:29 PM EDT [facility] Lymphocytes Absolute 2.43 1.20 - 3.90 10*3/uL LAB HEMATOLOGY METHOD 06/06/2025 12:29 PM EDT [facility] Monocytes Absolute 0.53 0.30 - 0.90 10*3/uL LAB HEMATOLOGY METHOD 06/06/2025 12:29 PM EDT [facility] Eosinophils Absolute 0.23 0.00 - 0.50 10*3/uL LAB HEMATOLOGY METHOD 06/06/2025 12:29 PM EDT [facility] Basophils Absolute 0.05 0.00 - 0.10 10*3/uL LAB HEMATOLOGY METHOD 06/06/2025 12:29 PM EDT [facility] Immature Granulocytes Absolute 0.05 0.00 - 0.06 10*3/uL LAB HEMATOLOGY METHOD 06/06/2025 12:29 PM EDT [facility] Blood Venous blood specimen / Unknown Venipuncture / Unknown 06/06/2025 10:44 AM EDT 06/06/2025 10:48 AM EDT Narrative [facility] - 06/06/2025 12:29 PM EDT Therapeutic decision making should be based on absolute values, rather than percentages. us Scottie Solo MD LAB BLOOD ORDERABLES Final Resul t [facility] [address] [place] [address] * Lipid Profile, Plasma (06/06/2025 10:44 AM EDT) Cholesterol, Plasma 86 <200 mg/dL 06/06/2025 12:33 PM EDT [facility] Comment: Cholesterol Reference Range (age >17 years): Desirable <200 mg/dL Borderline 200 to 239 mg/dL Undesirable >239 mg/dL HDL 53 >=40 mg/dL 06/06/2025 12:33 PM EDT [facility] Comment: HDL Cholesterol Reference Ranges (age >17 years): Female, acceptable > or = 50 mg/dL Male, acceptable > or = 40 mg/dL Triglycerides, Plasma 91 <150 mg/dL 06/06/2025 12:33 PM EDT [facility] Comment: Triglyceride Reference Range (age >17 years): Desirable: <150 mg/dL Borderline high: 150 to 199 mg/dL High: 200 to 499 mg/dL Very high: >499 mg/dL Increased risk of pancreatitis: >1000 mg/dL Cholesterol/HDL Ratio 2 06/06/2025 12:33 PM EDT [facility] LDL, Calculated 15 <100 mg/dL 12:33 PM EDT [facility] Comment: LDL Cholesterol Reference Range (age [...] 12 hours? Yes 06/06/2025 12:33 PM EDT [facility] Blood Venous blood specimen / Unknown Venipuncture / Unknown 06/06/2025 10:44 AM EDT 06/06/2025 10:48 AM EDT us Kayleigh Del Cid MD LAB BLOOD ORDERABLES Andreea damico Result [facility] [address] [place] [address] * (ABNORMAL) Comprehensive Metabolic Panel, Plasma (06/06/2025 10:44 AM EDT) Only the most recent of2 resultswithin the time period is included. Glucose, Plasma 96 74 - 99 mg/dL 06/06/2025 12:33 PM EDT [facility] BUN, Plasma 23 8 - 23 mg/dL 06/06/2025 12:33 PM EDT [facility] Creatinine, Plasma 2.00(H) 0.70 - 1.20 mg/dL 06/06/2025 12:33 PM EDT [facility] BUN/Creatinine Ratio 12 06/06/2025 12:33 PM EDT [facility] Sodium, Plasma 139 136 - 145 mmol/L 06/06/2025 12:33 PM EDT [facility] Potassium, Plasma 4.9 3.6 - 4.9 mmol/L 06/06/2025 12:33 PM EDT [facility] Chloride, Plasma 101 97 - 107 mmol/L 06/06/2025 12:33 PM EDT [facility] CO2, Plasma 26 22 - 29 mmol/L 06/06/2025 12:33 PM EDT [facility] Anion Gap 12 6 - 16 mmol/L 06/06/2025 12:33 PM EDT [facility] Total Calcium, Plasma 9.4 8.9 - 10.2 mg/dL 06/06/2025 12:33 PM EDT [facility] Total Protein 7.4 6.3 - 7.9 g/dL 06/06/2025 12:33 PM EDT [facility] Albumin, Plasma 4.4 3.5 - 5.2 g/dL 06/06/2025 12:33 PM EDT [facility] AST, Plasma 37 10 - 50 U/L 06/06/2025 12:33 PM EDT [facility] ALT, Plasma 50 10 - 50 U/L 06/06/2025 12:33 PM EDT [facility] Alkaline Phosphatase, Plasma 101 40 - 115 U/L 06/06/2025 12:33 PM EDT [facility] Total Bilirubin, Plasma 0.3 0.2 - 1.1 mg/dL 06/06/2025 12:33 PM EDT [facility] eGFRcr 34.6 mL/min/1.7 3m*2 06/06/2025 12:33 PM EDT [facility] Comment:Reported eGFRcr in m L/min/1.73m2 is based the CKD-EPI 2020 equation that does not use a race coefficient. Blood Venous blood specimen / Unknown Venipuncture / Unknown 06/06/2025 10:44 AM EDT 06/06/2025 10:48 AM EDT us Scottie Solo MD LAB BLOOD ORDERABLES Final Resul t Performing Organization Address [facility] Co de Phone Number [facility] [address] [place] [address] * Vitamin D 25 Hydroxy (05/23/2025 11:29 AM EDT) Vitamin D 25 Hydroxy 58.5 20.0 - 80.0 ng/mL 05/23/2025 4:49 PM EDT [facility] Blood Venous blood specimen / Unknown Venipuncture / Unknown 05/23/2025 11:29 AM EDT 05/23/2025 11:30 AM EDT Narrative [facility] - 05/23/2025 4:49 PM EDT Testing performed on Whitley Lime Supervisor, standardized against NIST SRM 2972. When testing samples from patients whose predominant form of vitamin D is vitamin D2, such as patients receiving vitamin D2 supplementation, results that are subtherapeutic should be confirmed with another method, such as LC-MS/MS, before being used for patient management. Vitamin D, 25-Hydroxy reference range, age 18 years and up: Deficiency: <12 ng/mL Insufficiency: 12 to 19 ng/mL Sufficiency: 20 to 80 ng/mL Possible toxicity: >100 ng/mL us Israel Castro MD LAB BLOOD ORDERABLES Final Re sult Performing Organization Address City/[facility]/ZIP Co de Phone Number [facility] [address] [place] [address] * (ABNORMAL) CBC W/O Differential (05/23/2025 11:29 AM EDT) WBC Count 7.51 3.70 - 10.30 10*3/uL LAB HEMATOLOGY METHOD 05/23/2025 2:30 PM EDT [facility] RBC Count 3.39(L) 4.60 - 6.10 10*6/uL LAB HEMATOLOGY METHOD 05/23/2025 2:30 PM EDT [facility] HGB 10.9(L) 13.7 - 17.5 g/dL LAB HEMATOLOGY METHOD 05/23/2025 2:30 PM EDT [facility] HCT 33.3(L) 40.0 - 51.0 % LAB HEMATOLOGY METHOD 05/23/2025 2:30 PM EDT [facility] Platelet Count 156 155 - 369 10*3/uL LAB HEMATOLOGY METHOD 05/23/2025 2:30 PM EDT [facility] MCV 98 79 - 98 fL LAB HEMATOLOGY METHOD 05/23/2025 2:30 PM EDT [facility] MCH 32.2(H) 26.0 - 32.0 pg LAB HEMATOLOGY METHOD 05/23/2025 2:30 PM EDT [facility] MCHC 32.7 30.7 - 35.5 g/dL LAB HEMATOLOGY METHOD 05/23/2025 2:30 PM EDT [facility] RDW 14.9(H) 11.5 - 14.5 % LAB HEMATOLOGY METHOD 05/23/2025 2:30 PM EDT [facility] MPV 10.2 8.8 - 12.5 fL LAB HEMATOLOGY METHOD 05/23/2025 2:30 PM EDT [facility] nRBC 0.3(H) <=0.0 per 100 WBCs LAB HEMATOLOGY METHOD 05/23/2025 2:30 PM EDT [facility] Blood Venous blood specimen / Unknown Venipuncture / Unknown 05/23/2025 11:29 AM EDT 05/23/2025 11:30 AM EDT us Israel Castro MD LAB BLOOD ORDERABLES Final Re sult [facility] [address] [place] [address] * (ABNORMAL) PTH Intact Total (05/23/2025 11:29 AM EDT) PTH Intact Total 83(H) 9 - 77 pg/mL 05/23/2025 3:56 PM EDT [facility] Blood Venous blood specimen / Unknown Venipuncture / Unknown 05/23/2025 11:29 AM EDT 05/23/2025 11:30 AM EDT Narrative [facility] - 05/23/2025 3:56 PM EDT Assay performed by immunoassay at the [facility]. Performed on Whitley Lime Supervisor chemiluminescent immunoassay, tractable to the World Health Organization's first international standard for PTH from the [facility], Code 79/500. Results obtained from different test methods or kits cannot be used interchangeably. us Israel Castro MD LAB BLOOD ORDERABLES Final Re sult [facility] [address] [place] [address] * CT Bony Pelvis (05/09/2025 4:19 PM [...] Tariq Shen MD on 05/09/2025 6:42 PM Jeuss Archer MD IMG CT PROCEDURES Final R [...] Total DLP (Dose-Length Product): 2512.38 mGy.cm (accession [id number]), 2512.38 mGy.cm (accession [id number]), 2512.38 mGy.cm (accession [id number]). Please note: The reported value represents the [...] Total DLP (Dose-Length Product): 2512.38 mGy.cm (accession [id number]),2512.38 mGy.cm (accession [id number]), 2512.38 mGy.cm (accession [id number]).Please note: The reported value represents the total [...] Total DLP (Dose-Length Product): 2512.38 mGy.cm (accession [id number]), 2512.38 mGy.cm (accession [id number]), 2512.38 mGy.cm (accession [id number]). Please note: The reported value represents the [...] Total DLP (Dose-Length Product): 2512.38 mGy.cm (accession [id number]),2512.38 mGy.cm (accession [id number]), 2512.38 mGy.cm (accession [id number]).Please note: The reported value represents the total [...] Total DLP (Dose-Length Product): 2512.38 mGy.cm (accession [id number]), 2512.38 mGy.cm (accession [id number]), 2512.38 mGy.cm (accession [id number]). Please note: The reported value represents the [...] Total DLP (Dose-Length Product): 2512.38 mGy.cm (accession [id number]),2512.38 mGy.cm (accession [id number]), 2512.38 mGy.cm (accession [id number]).Please note: The reported value represents the total [...] Skye Dewitt MD on 05/09/2025 5:50 PM us Jesus Archer MD IMG CT [...] HCV Quant PCR (05/09/2025 2:40 PM EDT) Pathologist [facility] Hepatitis C Antibody Negative Negative 05/09/2025 3:37 PM EDT [facility] Blood Venous blood specimen / Unknown Venipuncture / Unknown 05/09/2025 2:40 PM EDT 05/09/2025 2:55 PM EDT Jesus Archer MD LAB BLOOD ORDERABLES Andreea l Result [facility] [address] [place] [address] * PT-INR (05/09/2025 2:40 PM EDT) Pathologist [facility] Prothrombin Time 12.9 12.0 - 14.3 sec 05/09/2025 3:13 PM EDT [facility] INR 1.0 0.9 - 1.1 05/09/2025 3:13 PM EDT [facility] Blood Venous blood specimen / Unknown Venipuncture / Unknown 05/09/2025 2:40 PM EDT 05/09/2025 2:46 PM EDT Narrative [facility] - 05/09/2025 3:13 PM EDT OPTIMAL INR RANGES FOR PATIENT ON ORAL ANTICOAGULANT THERAPY Prevention of venous thromboembolism INR 2.0 to 3.0 In patients with heart disease: Atrial fibrillation INR 2.0 to 3.0 Valvular heart disease INR 2.0 to 3.0 Tissue heart valves INR 2.0 to 3.0 Mechanical prosthetic valves INR 2.5 to 3.5 Prevention of recurrent CA INR 2.5 to 3.5 us Jesus Archer MD LAB BLOOD ORDERABLES Andreea l Result Performing Organization Address [facility] Co de Phone Number [facility] [address] [place] [address] * Anti Xa Level Unfractionated Heparin (05/09/2025 2:40 PM EDT) Anti Xa Level Unfractionated Heparin <0.11 <1.00 IU/mL 05/09/2025 3:14 PM EDT [facility] Blood Venous blood specimen / Unknown Venipuncture / Unknown 05/09/2025 2:40 PM EDT 05/09/2025 2:46 PM EDT Narrative [facility] - 05/09/2025 3:14 PM EDT Therapeutic Range: UFH Full Dose and ACS/CA protocols*: 0.30 - 0.70 IU/mL UFH Low Dose protocol*: 0.25 - 0.50 IU/mL UFH prophylaxis: Not established us Jesus Archer MD LAB BLOOD ORDERABLES Andreea l Result Performing Organization Address [facility]/[place]IP [place] [address] * POCT glucose meter (05/09/2025 1:23 PM [...] for testing. Comment 05/09/2025 1:24 PM EDT [facility] [place] Blank Handler ID Gina Hess 05/09/20 25 1:24 PM EDT [facility] Device ID [id number] 05/09/2025 1:24 PM EDT [facility] Specimen Type POC Capillary 05/09/2025 1:24 PM EDT [facility] Blood Capillary blood specimen / Unknown 05/09/2025 1:23 PM EDT 05/09/2025 1:24 PM EDT us Generic Provider Poct LAB POINT OF CARE TEST DOCKED DEVICE UNSOLICITED RESULTS Final Result Performing Organization Address City/State/[facility] Phone Number [facility] [address] [place] [id number] * COLONOSCOPY (08/21/2016) Anatomical Region Laterality Modality Endoscopy Narrative 08/21/2016 Ordered by an unspecified provider. Historical Provider GI PROCEDURE ORDERABLES F inal Result from Last 3 Months or Most Recently Relevant to Health Maintenance Additional Health Concerns Active Problems Noted Date Diagnosed Date Treatment Adherence 07/05/2021 Transportation 07/05/2021 Insurance INFECTIOUS DISEASE PROGRAM INFECTIOUS DISEASE PROGRAM [employer] [facility] MEDICARE [facility] MEDICARE Advance Directives * Full Code (Latest Code Status on File) Date Activated Date Inactivated Comments 12/03/2023 12:14 AM 12/03/2023 6:49 PM Question Answer Comments Patient has decision-making capacity? Yes Care Teams It Software Developer Relationship Specialty Start Date End Date Kayleigh Del Cid MD [address] [place] [phone] PCP - General Internal Medicine 04/02/23 Magalis Ruiz Sales Clerk Medical Scientific Liaison 07/25/22 Imtiaz Caraballo MD [address] [place] [phone] Family Medicine 04/02/23 Scottie Solo MD [address] [place] [phone] Consulting Physician Infectious Diseases 01/09/24
--- OUTSIDE RECORDS SUMMARY | 2025-07-06 11:27 | XMS_ITS | Encounter Summary ---
Author Organization [facility] Address [address] [place] [address] Care Team Providers Care Grain Trimmer Name Role Phone Magalis Ruiz Unavailable Unavailable Kayleigh Del Cid MD Primary Care Provider [phone] Imtiaz Caraballo MD Unavailable Unavailab Scottie Davenport MD Unavailable Reason for Visit * Reason Comments Med Refill Encounter Details Date Type Department Care Team (Late st Contact Info) Description 05/24/[address] [phone] Kayleigh Del Cid MD [address] [place] [address] [address] [place] [phone] Depression, unspecified depression type Social History Tobacco Use Types Packs/Day Years Used Date Smoking Tobacco: Former Cigarettes Q uit: 1985 Smokeless Tobacco: Never Alcohol Use Standard Drinks/Week Comments Not Currently 0 (1 standard drink = 0.6 oz pur e alcohol) quit March 2021 PHQ-2 Answer Date Recorded Patient Health Questionnaire-2 Score 0 05/05/2024 PHQ-9 Answer Date Recorded Patient Health Questionnaire-9 [...] Description 08/31/2025 1:00 PM EDT Office Visit [place] [phone] [place] [address] [place] [phone] 11/16/2025 9:30 AM EST Office Visit [address] [phone] Scottie Solo MD [address] [place] [phone] 11/16/2025 10:30 AM EST Office Visit [address] [phone] Kayleigh Del Cid MD [address] [place] [phone] 01/11/2026 8:15 AM EST Office Visit [facility] [address] [place] [address] Dirk Hoffman, OD [address] [address] documented as of this encounter Goals Goal Patient Goal Type Associated Problems Recent Progress Patient-Stated? Author Patient to remain active in HIV care Care Plan Treatment Adherence On track(2024 11:44 AM EDT) No Cece Castro Patient to remain active on part B services/RW kristen-eligible Care Plan Treatment Adherence On track(2024 11:44 AM EDT) Cece Olviera Patient to maintain undetectable viral load Care Plan Treatment Adherence On track(2024 11:44 AM EDT) No Cece Castro Reduce transportation barriers to medical appts PRN Care Plan Transportation On track(2024 11:44 AM EDT) No Cece Castro Note: Gas cards for travel to clinic documented as of this encounter Visit Diagnoses Diagnosis Depression, unspecified depression type documented in this encounter Additional Health Concerns Active Problems Noted Date Diagnosed Date Treatment Adherence 07/05/2021 Transportation 07/05/2021 Assessment Noted Time PHQ-9 Depression Total Score: 8 02/06/20 24 9:20 AM EST A fall risk assessment has been complete d for the patient 05/12/2024 4:06 PM EDT A Body Mass Index follow-up plan has been documented for the patient 05/12/2024 4:40 PM EDT documented as of this encounter Care Teams Grain Trimmer Relationship Specialty Start Date End Date Kayleigh Del Cid MD [address] [place] [phone] PCP - General Internal Medicine 04/02/23 Magalis Ruiz Systems Specialist Catechist 07/25/22 Imtiaz Caraballo MD [address] [place] [phone] Family Medicine 04/02/23 Scottie Solo MD [address] [place] [phone] Consulting Physician Infectious Diseases 01/09/24 documented as of this encounter
--- OUTSIDE RECORDS SUMMARY | 2025-07-06 11:27 | XMS_ITS ---
Author Organization [facility] Address [address] [place] [address] Care Team Providers Care Refractory Bricklayer Name Role Phone Magalis Ruiz Unavailable Unavailable Kayleigh Del Cid MD Primary Care Provider [phone] Imtiaz Caraballo MD Unavailable Unavailab Scottie Davenport MD Unavailable Bryant White Status:Active (Active) Start date:06/01/2010 Enrollment date:06/01/2010 Related social drivers of health:Intimate Partner Violence, Alcohol Use, Tobacco Use, Financial Resource Strain, Depression, Stress,Food Insecurity, Transportation Needs, Housing Stability, Safety and Environment Case Team Name Relationship Phone Magalis Ruiz(Responsible Staff) Social Yolanda britt Continued Care and Services Coordination
--- OUTSIDE RECORDS SUMMARY | 2025-07-06 11:27 | XMS_ITS | Encounter Summary ---
Author Organization Healthcare Address [address] [place] [address] Care Team Providers Care Rides Attendant Name Role Phone Amanuel Shsahankjami Jamari Unavailable Unavailable Kayleigh Del Cid MD Primary Care Provider + [phone] Magalis Ruiz Unavailable Unavailable Kayleigh Del Cid MD Primary Care Provider + [phone] Imtiaz Caraballo MD Unavailable Unavailab Scottie Davenport MD Unavailable Reason for Visit * Reason Comments Med Refill Encounter Details Date Type Department Care Team (Late st Contact Info) Description 09/03/[address] Clinic Infectious Disease [address] [place] [address] Kayleigh Del Cid MD [address] [place] [address] Social History Tobacco Use Types Packs/Day Years Used Date Smoking Tobacco: Former Cigarettes Q uit: 1985 Smokeless Tobacco: Never Alcohol Use Standard Drinks/Week Comments Not Currently 0 (1 standard drink = 0.6 oz pur e alcohol) quit March 2021 Sex and Gender Information Value Date Recorded Sex Assigned at Male 12/03/2023 8:18 AM EST Legal Sex Male 8:51 PM EDT Gender Identity Male 12/03/2023 8:18 AM EST Sexual Orientation Not on file COVID-19 Exposure Response Date Recorded In the last month, have you been in contact with someone who was confirmed or suspected to have Coronavirus / COVID-19? No / Unsure 09/04/2021 3:27 PM EDT documented as of this encounter Plan of Treatment Upcoming Encounters Date Type Department Care Team (Late st Contact Info) Description 08/31/2025 1:00 PM EDT Office Visit [address] [phone] [place] [address] [place] [phone] 11/16/2025 9:30 AM EST Office Visit [address] [phone] Scottie Solo MD [address] [place] [phone] 11/16/2025 10:30 AM EST Office Visit [address] [phone] Kayleigh Del Cid MD [address] [place] [phone] 01/11/2026 8:15 AM EST Office Visit [facility] [address] [place] [address] Dirk Hoffman, OD [address] [address] documented as of this encounter Goals Goal Patient Goal Type Associated Problems Recent Progress Patient-Stated? Author Patient to remain active in HIV care Care Plan Treatment Adherence On track(2024 11:44 AM EDT) Cece Olivera Patient to remain active on part B [...] Adherence 07/05/2021 Transportation 07/05/2021 Assessment Noted Time A fall risk assessment has been complete d for the patient 08/29/2021 9:08 AM EDT documented as of this encounter Care Teams Rides Attendant Relationship Specialty Start [place] [address] [place] [address] [address] [place] [phone] PCP - General 04/13/21 04/01/23 Kayleigh Del Cid MD [address] [place] [phone] PCP - General Internal Medicine 04/02/23 [place] [address] 06/01/10 07/25/22 Magalis Ruiz Service Or Work Dispatcher Mini Lab Operator 07/25/22 Imtiaz Caraballo MD Family Medicine 04/02/23 Scottie Solo MD [address] [place] [address] [address] [place] [phone] Consulting Physician Infectious Diseases 01/09/24 documented as of this encounter
--- OUTSIDE RECORDS SUMMARY | 2025-07-06 11:27 | XMS_ITS | Encounter Summary ---
Author Organization [facility] Address [address] [place] [address] Care Team Providers Care Foreign Exchange Clerk Name Role Phone Magalis Ruiz Unavailable Unavailable Kayleigh Del Cid MD Primary Care Provider [phone] Imtiaz Caraballo MD Unavailable Unavailab Scottie Davenport MD Unavailable Reason for Visit * Reason Comments Med Refill Encounter Details Date Type Department Care Team (Late st Contact Info) Description 05/26/[address] [address] Scottie Solo MD [address] [place] [address] [address] [place] [address] HIV disease ([facility]/HCC) Social History Tobacco Use Types Packs/Day Years Used Date Smoking Tobacco: Never Cigarettes Qu it: 1985 Smokeless Tobacco: Never Alcohol Use Standard Drinks/Week Comments Not Currently 0 (1 standard drink = 0.6 oz pur e alcohol) quit March 2021 PHQ-2 Answer Date Recorded Patient Health Questionnaire-2 Score 0 03/19/2023 Sex and Gender Information Value Date Recorded Sex Assigned at Male 12/03/2023 8:18 AM EST Legal Sex Male 8:51 PM EDT Gender Identity Male 12/03/2023 8:18 AM EST Sexual Orientation Not on file documented as of this encounter Plan of Treatment Upcoming Encounters Date Type Department Care Team (Late st Contact Info) Description 08/31/2025 1:00 PM EDT Office Visit [address] [address] [place] [address] [place] [phone] 11/16/2025 9:30 AM EST Office Visit [address] [address] Scottie Solo MD [address] [place] [address] 11/16/2025 10:30 AM EST Office Visit [address] [address] Kayleigh Del Cid MD [address] [place] [address] 01/11/2026 8:15 AM EST Office Visit [facility] [address] [place] [address] Dirk Hoffman, OD [address] [address] documented as of this encounter [...] as of this encounter Visit Diagnoses Diagnosis HIV disease (CMS/HCC) Human immunodeficiency virus [HIV] disease documented in this encounter Additional Health Concerns Active Problems Noted Date Diagnosed Date Treatment Adherence 07/05/2021 Transportation 07/05/2021 Assessment Noted Time PHQ-9 Depression Total Score: 6 07/23/20 9:41 AM EDT A fall risk assessment has been complete d for the patient 03/19/2023 11:18 AM EDT A Body Mass Index follow-up plan has been documented for the patient 03/19/2023 10:23 PM EDT documented as of this encounter Care Teams Foreign Exchange Clerk Relationship Specialty Start Date End Date Kayleigh Del Cid MD [facility] [address] [address] PCP - General Internal Medicine 04/02/23 Magalis Ruiz Credit Counselor Helper Electrical 07/25/22 Imtiaz Caraballo MD [facility] [address] [address] Family Medicine 04/02/23 Scottie Solo MD [facility] [address] [address] Consulting Physician Infectious Diseases 01/09/24 documented as of this encounter
--- OUTSIDE RECORDS SUMMARY | 2025-07-06 11:27 | XMS_ITS | Clinical Summary ---
Author Organization [facility] [place] [address] Care Team Providers Care Regional Sales Executive Name Role Phone Unavailable Primary Care Provider Unavailabl e Social History Tobacco Use Types Packs/Day Years Used Date Smoking Tobacco: Never Assessed Sex and Gender Information Value Date Recorded Sex Assigned at Not on file Legal Sex Male 6:52 AM EDT Gender Identity Not on file Sexual Orientation Not on file Plan of Treatment Health Maintenance Due Date Last Done Comments Annual Wellness Exam 1954 Hepatitis C Screening 1969 DTaP/TDaP/Td (1 - Tdap) 1970 Cologuard 1996 Colon Cancer Screening 1996 Colonoscopy 1996 FIT 1996 Sigmoidoscopy 1996 Virtual Colonography 1996 Pneumococcal Vaccine 50+ (1 of 1 - PCV) 2001 Zoster (1 of 2) 2001 COVID-19 Vaccine (2023-2 5 season) 2024 Influenza Vaccine (#1) 2025 Hepatitis B Vaccine Aged Out No longe r eligible based on patient's age to complete this topic Meningococcal B Vaccine Aged Out No l onger eligible based on patient's age to complete this topic
--- OUTSIDE RECORDS SUMMARY | 2025-07-06 11:27 | XMS_ITS | Encounter Summary ---
Author Organization [facility] Address [address] [place] [address] Care Team Providers Care Manager Pharmacy Name Role Phone Magalis Ruiz Unavailable Unavailable Kayleigh Del Cid MD Primary Care Provider [phone] Imtiaz Caraballo MD Unavailable Unavailab Scottie Davenport MD Unavailable Reason for Visit * Reason Comments Med Refill Encounter Details Date Type Department Care Team (Late st Contact Info) Description 08/21/2023 Refill [facility] [address] [place] [address] Joana Ecehvarria MD [address] [facility] [address] [place] [address] Stage 3 chronic kidney disease, unspecified whether stage 3a or 3b CKD (CMS/HCC); Arteriosclerosis of coronary artery Social History Tobacco Use Types Packs/Day Years Used Date Smoking Tobacco: Never Cigarettes Qu it: 1985 Smokeless Tobacco: Never Alcohol Use Standard Drinks/Week Comments Not Currently 0 (1 standard drink = 0.6 oz pur e alcohol) quit March 2021 PHQ-2 Answer Date Recorded Patient Health Questionnaire-2 Score 0 07/21/2023 PHQ-2A Answer Date Recorded Patient Health Questionnaire-2 Score 0 07/21/2023 Sex and Gender Information Value Date Recorded Sex Assigned at Male 12/03/2023 8:18 AM EST Legal Sex Male 8:51 PM EDT Gender Identity Male 12/03/2023 8:18 AM EST Sexual Orientation Not on file documented as of this encounter Plan of Treatment Upcoming Encounters Date Type Department Care Team (Late st Contact Info) Description 08/31/2025 1:00 PM EDT Office Visit [place] [phone] [place] [address] [place] [address] 11/16/2025 9:30 AM EST Office Visit [address] [address] Scottie Solo MD [address] [place] [address] 11/16/2025 10:30 AM EST Office Visit [address] [address] Kayleigh Del Cid MD [address] [place] [address] 01/11/2026 8:15 AM EST Office Visit [facility] [address] [place] [address] Dirk Hoffman, OD [address] [address] documented as of this encounter [...] as of this encounter Visit Diagnoses Diagnosis Stage 3 chronic kidney disease, unspecified whether stage 3a or 3b CKD (CMS/HCC) Arteriosclerosis of coronary artery documented in this encounter Additional Health Concerns Active Problems Noted Date Diagnosed Date Treatment Adherence 07/05/2021 Transportation 07/05/2021 Assessment Noted Time PHQ-9 Depression Total Score: 6 07/23/20 9:41 AM EDT A fall risk assessment has been complete d for the patient 07/21/2023 8:12 AM EDT A Body Mass Index follow-up plan has been documented for the patient 03/19/2023 10:23 PM EDT documented as of this encounter Care Teams Manager Pharmacy Relationship Specialty Start Date End Date Kayleigh Del Cid MD [address] [place] [address] PCP - General Internal Medicine 04/02/23 Magalis Ruiz Mill Worker Denial Management Representative 07/25/22 Imtiaz Caraballo MD [address] [place] [phone] Family Medicine 04/02/23 Scottie Solo MD [address] [place] [phone] Consulting Physician Infectious Diseases 01/09/24 documented as of this encounter
--- OUTSIDE RECORDS SUMMARY | 2025-07-06 11:27 | XMS_ITS | Encounter Summary ---
Author Organization [facility] Address [address] [place] [address] Care Team Providers Care Stove Tender Name Role Phone Magalis Ruiz Unavailable Unavailable Kayleigh Del Cid MD Primary Care Provider [phone] Imtiaz Caraballo MD Unavailable Unavailab Scottie Davenport MD Unavailable Reason for Visit * Reason Comments Med Refill Encounter Details Date Type Department Care Team (Late st Contact Info) Description 05/26/[address] [address] Scottie Solo MD [address] [place] [address] [address] [place] [address] Stage 3 chronic kidney disease, [...] Description 08/31/2025 1:00 PM EDT Office Visit [address] [address] [place] [address] [place] [address] [address] [place] [address] 11/16/2025 9:30 AM EST Office Visit [address] [address] Scottie Solo MD [address] [place] [address] [address] [place] [address] 11/16/2025 10:30 AM EST Office Visit [address] [address] Kayleigh Del Cid MD [address] [place] [address] 01/11/2026 8:15 AM EST Office Visit [facility] [address] [place] [address] Dirk Hoffman, OD [address] [address] documented as of this encounter [...] Time PHQ-9 Depression Total Score: 6 07/23/20 22 9:41 AM EDT A fall risk assessment has been complete d for the patient 03/19/2023 11:18 AM EDT A Body Mass Index follow-up plan has been documented for the patient 03/19/2023 10:23 PM EDT documented as of this encounter Care Teams Stove Tender Relationship Specialty Start Date End Date Kayleigh Del Cid MD [address] [place] [address] PCP - General Internal Medicine 04/02/23 Magalis Ruiz Steam Presser Ticker Installer 07/25/22 Imtiaz Caraballo MD [address] [place] [address] Family Medicine 04/02/23 Scottie Solo MD [address] [place] [address] Consulting Physician Infectious Diseases 01/09/24 documented as of this encounter
[2025-07-06 11:31] LABS: Hematocrit 31.7 % (42.0-52.0); Hemoglobin 10.9 g/dL (14.1-18.0); Immature Granulocytes % 0.1 %; Mean Corpuscular HGB Conc 34.4 g/dL (31.8-35.4); Mean Corpuscular Hemoglobin 33.5 pg (27.0-31.2); Mean Corpuscular Volume 97.5 fl (80-94); Nucleated Red Blood Cells % 0 %; Platelet Count 164 K/mm3 (142-424); Red Blood Count 3.25 M/mm3 (4.60-6.20); Red Cell Distribution Width-SD 49.3 fL; White Blood Count 6.8 K/mm3 (4.8-10.8)
[2025-07-06] MEDS: IOPAMIDOL-370 (76%);100ML BOTTLE 80 ML IV (11:31)
[2025-07-06] MEDS: 0.9 % SODIUM CHLORIDE 50 ML VIAL IV (11:31)
[2025-07-06] MEDS: SODIUM CHLORIDE 0.9% 10ML SYR (RAD ONLY) 10 ML IV (11:31)
--- NOTE | 2025-07-06 11:46 | PC.NURSE ---
Pt returns from CT
[2025-07-06 11:50] LABS: Alanine Aminotransferase 37 U/L (12-78); Albumin Level 4.3 g/dl (3.5-5.0); Albumin/Globulin Ratio 1.4 (1.1-1.8); Alkaline Phosphatase 98 U/L (38-126); Anion Gap 11.3 mEq/L (5-15); Aspartate Amino Transferase 42 U/L (17-59); Bilirubin,Total 0.4 mg/dl (0.2-1.3); Blood Urea Nitrogen 21 mg/dl (9-20); Calcium 9.2 mg/dl (8.4-10.2); Carbon Dioxide 27 mmol/L (22.0-30.0); Chloride 104 mmol/L (98-107); Creatinine Clearance Estimated 24 mL/min (50-200); Creatinine,Serum 1.90 mg/dl (0.66-1.25); Estimated Glomerular Filt Rate 35 ml/min (>60); GFR (African American) 42 ML/MIN (>60); Globulin 3.0 g/dL (1.3-3.2); Glucose 108 mg/dl (74-100); Potassium 5.3 mmoL/L (3.5-5.1); Sodium 137 mmol/L (136-145); Total Protein,Serum 7.3 g/dl (6.3-8.2)
[2025-07-06 12:02] LABS: Troponin I < 0.01 ng/ml (0.00-0.034)
[2025-07-06 12:08] LABS: Activated Partial Thrombo Time 22.7 seconds (22.8-30.6); INR 0.98 (0.9-1.1); Prothrombin Time 10.9 seconds (10.1-12.5)
[2025-07-06 12:13] LABS: Hemoglobin A1C 5.1 % (4.0-6.0)
--- NOTE | 2025-07-06 12:49 | PC.NURSE ---
Pt reminded of need for Urine sample to be collected. Pt attempting to use urinal but has not been able to provide a sample.
--- NOTE | 2025-07-06 12:58 | PC.NURSE ---
states that no second trop is needed. order cancelled.
--- NOTE | 2025-07-06 13:14 | PC.NURSE ---
Per provider an in/out cath can be performed to obtain UA. Pt declined in/out catheter. Pt resting in bed eating chips at this time.
[2025-07-06] MEDS: THIAMINE 100MG TABLET 100 MG PO (13:22)
--- NOTE | 2025-07-06 13:53 | PC.NURSE ---
son updated on patient status
[2025-07-06 14:14] LABS: Microscopic, Urine URINE MICROSCOPIC (MICROSCOPIC)
[2025-07-06 14:16] LABS: Bilirubin,Urine Negative (Negative); Color,Urine YELLOW (Yellow); Glucose,Urine (UA) Negative (Negative); Ketones,Urine Negative (Negative); Leukocyte Esterase,Urine Negative (Negative); PH,Urine 6.5 (5.0-8.5); Protein,Urine Negative (Negative); Specific Gravity, Urine 1.010 (1.005-1.030); Urobilinogen,Urine 0.2 EU/dl (0.2)
[2025-07-06 14:45] LABS: Bacteria,Urine Trace /lpf
[2025-07-07 13:11] LABS: Prealbumin 30 mg/dL (9-32)
--- NOTE | 2025-07-11 09:30 | PC.NURSE ---
pt called regarding his visit. He asked about the gonzáles placed and what his next steps should be. Per his discharge I informed him the ED doc would like him to f/u with urology and his PCP. He states he has a urologist at and will call and make an appointment.
== END 2025-07-06 15:41 | disposition home or self-care (01) ==
PROVIDERS: Emergency Provider Student in an Organized Health Care Education/Training Program; PCP Internal Medicine
DX: N39.0 Urinary tract infection, site not specified (principal); R33.9 Retention of urine, unspecified; R29.818 Other symptoms and signs involving the nervous system; R47.81 Slurred speech; R26.81 Unsteadiness on feet; E78.5 Hyperlipidemia, unspecified; N18.30 Chronic kidney disease, stage 3 unspecified; I12.9 Hypertensive chronic kidney disease with stage 1 through stage 4 chronic kidney disease, or unspecified chronic kidney disease; Z86.79 Personal history of other diseases of the circulatory system; Z95.5 Presence of coronary angioplasty implant and graft; Z86.73 Personal history of transient ischemic attack (TIA), and cerebral infarction without residual deficits
CPT/HCPCS: 51798; 70450; 70496; 70498; 80053; 80320; 81001; 83036; 84134; 84484; 85025; 85610; 85730; 86361; 93005; 99285; Q9967

== ENCOUNTER 2025-07-12 10:27 | Emergency (ER) | payer MEDICARE, SELFPAY ==
--- OUTSIDE RECORDS SUMMARY | 2025-05-16 15:30 | XMS_ITS | Encounter Summary ---
Author Organization Healthcare Address [address] [place] [address] Care Team Providers Care Corrugated Sheet Material Sheeter Name Role Phone Magalis Ruiz Unavailable Unavailable Kayleigh Del Cid MD Primary Care Provider [phone] Imtiaz Caraballo MD Unavailable Unavailab Scottie Davenport MD Unavailable Reason for Referral * Consultation (Routine) - Authorized Specialty Diagnoses / Procedures Referred By Contac t Referred To Contact Diagnoses Coronary arteriosclerosis Kayleigh Del Cid MD [address] [place] [phone] Phone: tel: fax: Referral ID Status Reason Start Date Expiration Date V isits Requested Visits Authorized [id number] Authorized 05/16/2025 11/15/2026 1 1 Reason for Visit * Reason Comments Follow-up Encounter Details Date Type Department Care Team (Latest Contact Info) Description 05/16/2025 3:30 PM EDT Office Visit [address] [phone] Kayleigh Del Cid MD [address] [place] [phone] Coronary arteriosclerosis (Primary Dx); Pure hypercholesterolemia; Depression, unspecified depression type; Healthcare maintenance; Gastroesophageal reflux disease without esophagitis; Dry skin; Stage 3b chronic kidney disease (CMS/HCC); Benign prostatic hyperplasia with nocturia; Bilateral primary osteoarthritis of knee; Memory loss; Neuropathy; Recurrent falls Social History Tobacco Use Types Packs/Day Years Used Date Smoking Tobacco: Former Cigarettes Q uit: 1984 Passive Smoke Exposure: Current Smokeless Tobacco: Never Alcohol Use Standard Drinks/Week Comments Not Currently 0 (1 standard drink = 0.6 oz pur e alcohol) quit March 2021 PHQ-2 Answer Date Recorded Patient Health Questionnaire-2 Score 1 05/16/2025 PHQ-9 Answer Date Recorded Patient Health Questionnaire-9 Score 1 05/16/2025 AUDIT-C Answer Date Recorded Q1: How often do you have a drink containing alcohol? 4 or more times a week 05/16/2025 Q2: How many drinks containi ng alcohol do you have on a typical day when you are drinking? 1 or 2 Q3: How often do you have si x or more drinks on one occasion? Less than monthly 05/16/2025 PHQ-2A Answer Date Recorded Patient Health Questionnaire-2 Score 0 11/10/2023 Sex and Gender Information Value Date Recorded Sex Assigned at Male 12/03/2023 8:18 AM EST Legal Sex Male 8:51 PM EDT Gender Identity Male 12/03/2023 8:18 AM EST Sexual Orientation Not on file documented as of this encounter Last Filed Vital Signs Vital Sign Reading Time Taken Comments Blood Pressure 129/79 05/16/2025 3:13 PM EDT Pulse 59 05/16/2025 3:13 PM EDT Temperature 36.6 C (97.8 F) 05/16/2025 3:13 PM EDT Respiratory Rate 16 05/16/2025 3:13 PM EDT Oxygen Saturation 98% 05/16/2025 3:13 PM EDT RA Inhaled Oxygen Concentration - - Weight 64.5 kg (142 lb 3.2 oz) 05/16/2025 3:13 P M EDT Height - - Body Mass Index 23.66 05/09/2025 1:04 PM EDT documented in this encounter Functional Status * AUDIT-C Score Answer Date of Assessment Author 5 05/16/2025 3:13 PM EDT Regina Whittaker * Question Answer Date of Assessment Author Q1: How often do you have a drink containing alcohol? 4 or more times a week 05/16/2025 3:13 PM Andrew Ramos Q2: How many drinks containing alcohol do you have on a typical day when you are drinking? 1 or 2 05/16/2025 3:13 PM Andrew Ramos Q3: How often do you have six or more drinks on one occasion? Less than monthly 05/16/2025 3:13 PM Andrew Ramos * Over the past 2 weeks, how often have you been bothered by any of the following problems? Question Answer Date of Assessment Author Little interest or pleasure in doing things Not at all 05/16/2025 3:12 PM Andrew Ramos Feeling down, depressed, or hopeless Several days 05/16/2025 3:12 PM Andrew Ramos Patient Health Questionnaire -2 Score 1 05/16/2025 3:12 PM Andrew Ramos * Question Answer Date of Assessment Author Trouble falling or staying a sleep, or sleeping too much Not at all 05/16/2025 3:12 PM Andrew Ramos Feeling tired or having little energy Not at all 3:12 PM Andrew Ramos Poor appetite or overeating Not at all 05/16/2025 3: 12 PM Andrew Ramos Feeling bad about yourself - or that you are a failure or have let yourself or your family down Not at all 05/16/2025 3:12 PM Andrew Ramos Trouble concentrating on thi ngs, such as reading the newspaper or watching television Not at all 05/16/2025 3:12 PM Andrew Ramos Moving or speaking so slowly that other people could have noticed? Or the opposite - being so fidgety or restless that you have been moving around a lot more than usual. Not at all 05/16/2025 3:12 PM Andrew Ramos Thoughts that you would be b eliel off or hurting yourself in some way Not at all 05/16/2025 3:12 PM Andrew Ramos Patient Health Questionnaire-9 Score 1 05/01 3:12 PM EDT Andrew Whittaker * If you checked off any problems on this questionnaire so far, Question Answer Date of Assessment Author How difficult have these problems made it for you to do your work, take care of things at home, or get along with other people? Not difficult at all 05/16/2025 3:12 PM EDT Andrew Whittaker documented as of this encounter Miscellaneous Notes * Assessment & Plan Note - Kayleigh Del Cid MD - 05/25/2025 4:26 PM EDT Associated Problem(s): Healthcare maintenance Healthcare Maintenance Immunizations Immunization History Administered Date(s) Administered DTaP, Unspecified 10/18/2010 Hep A / Hep B 10/18/2010, 11/19/2010, 02/28/2011 Hep B, adult 06/06/2014, 10/17/2014 Influenza, High-dose, Split Virus, Trivalent, Injectable, preservative free 08/06/2024 Influenza, Unspecified 09/20/2010, 08/29/2011 Influenza, high-dose, quadrivalent 09/05/2020, 09/13/2021, 01/05/2024 Influenza, injectable, quadrivalent, preservative free 08/22/2015, 11/04/2018, 11/03/2019, 08/14/2022 Influenza, seasonal, injectable 09/20/2010, 01/03/2014, 10/17/2014, 08/26/2016, 09/24/2017, 09/05/2020 Influenza, seasonal, injectable, preservative free 07/31/2012 Influenza, seasonal, intradermal, preservative free 01/03/2014 Meningococcal MCV4O 02/06/2024 Meningococcal MCV4P 09/24/2017, 02/04/2018 Moderna COVID-19 Vaccine (Rouge Sifter And Miller) 12+ years 01/25/2021, 02/22/2021, 07/26/2021 Moderna COVID-19 Vaccine Bivalent 6months+ 08/14/2022 PPD Skin Test (TB Skin Test) 01/02/2012 Pfizer Covid-19 Vaccine 12y+, Wilmer Protein, PF, Sal-Sucrose 01/05/2024, 09/08/2024 Pneumococcal 20-miller Conj Vaccine 03/19/2023 Pneumococcal Conjugate PCV 13 01/29/2013 Pneumococcal Polysaccharide PPV23 04/24/2016 Pneumococcal, Unspecified 08/05/2010 Rsvpref, Recombinant, Protein Subunit, Adjuvent 05/05/2024 Tdap 10/18/2010, 02/27/2015, 05/16/2025 Zoster, Recombinant 09/05/2020, 11/27/2020 - Lab Results Component Value Date HAG Positive (A) 03/19/2023 HEPBSAB Indeterminate (A) 03/19/2023 -immune hep A, indeterminate hep B Cancer Screenings Anal pap: 01/22 negative Colon cancer: normal 2015, next due in 2025 Lung cancer: not indicated, quit > 15 yrs ago Other Screenings DEXA: 01/24 osteopenia, repeat 01/26 AAA: screen negative in 09/18 Labs ASCVD: CAD, on statin A1c: Lab Results Component Value Date HGBA1C 5.5 12/30/2022 Referrals Dentist: edentulous Ophthalmology: * Assessment & Plan Note - Kayleigh Del Cid MD - 05/25/2025 4:26 PM EDT Associated Problem(s): Falls frequently -discussed importance of treating OA pain that he thinks is causing legs to give out and to carry his cane with him all the time. He has one but doesn't carry because he doesn't need it most of the time but discussed that we can't predict when he will fall * Assessment & Plan Note - Kayleigh Del Cid MD - 05/25/2025 4:25 PM EDT Associated Problem(s): Neuropathy -Well controlled -Continue nortriptyline qhs * Assessment & Plan Note - Kayleigh Del Cid MD - 05/25/2025 4:25 PM EDT Associated Problem(s): Memory loss -memory loss is not rapidly progressive but chronic -Metabolic/infectious workup negative (kidney, liver, syphilis, vit B12) -MRI w/out contrast given renal function- mild chronic small vessel disease -MOCA 08/24 , repeat 11/23 improved to -he did not bring advanced directives -difficult to say he has dementia because no identifiable functional deficit but he isn't responsible for many IADLs ( and daughter do most of them) -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 -referred to memory clinic, appt soon- strongly encouraged him to take a close family member with him for corroboration * Assessment & Plan Note - Kayleigh Del Cid MD - 05/25/2025 4:24 PM EDT Associated Problem(s): Arteriosclerosis of coronary artery -no recent anginal pains -Continue current medication regimen (atorva 80, repatha, BB, plavix) -continue to follow with cardiology * Assessment & Plan Note - Kayleigh Del Cid MD - 05/25/2025 4:23 PM EDT Associated Problem(s): Bilateral primary osteoarthritis of knee -his knees have repeatedly given out causing falls -he is still considering cortisone shot -strongly encouraged him to consider given worsening functional status * Assessment & Plan Note - Kayleigh Del Cid MD - 05/25/2025 4:21 PM EDT Associated Problem(s): Benign prostatic hyperplasia -Well controlled -Continue flomax 0.4 * Assessment & Plan Note - Kayleigh Del Cid MD - 05/25/2025 4:21 PM EDT Associated Problem(s): Chronic kidney disease (CKD), stage III (moderate) ([facility]) Lab Results Component Value Date CREATININE 1.87 (H) 05/09/2025 CREATININE 1.95 (H) 03/08/2025 EGFR 37.5 05/09/2025 EGFR 35.7 03/08/2025 -stable -continue lisinopril 5 -following with nephrology, last seen 07/24 with 1 yr follow-up * Assessment & Plan Note - Kayleigh Del Cid MD - 05/25/2025 4:21 PM EDT Associated Problem(s): Dry skin - does not use emollients or lotions after showers - encouraged to moisturize the skin after showers * Assessment & Plan Note - Kayleigh Del Cid MD - 05/25/2025 4:20 PM EDT Associated Problem(s): Gastroesophageal reflux disease without esophagitis -Well controlled -continue 20 mg PPI daily + PRN famotidine * Progress Notes - Brittney Grubbs - 05/16/2025 3:30 PM EDT RW Primary Care Visit Mr. Rodriguez is a 74 yo M with [facility] HIV who presents today for follow-up. Granddaughter is present in the room. Angina - he saw cardiology in 08/2024 and they increased his metoprolol to 50 mg to help with angina. He denies any chest pain or SOA. CKD - He saw nephrology in July with 1 year follow-up, no changes made Bilateral osteoarthritis - He reports that his leg and knee pain is about the same. He does report falls since last visit. He has had 5-6 falls in the last 6 months. He thinks his falls are because his legs get tired and give out. He also reports that he has fallen due to tripping on steps. Thinking about getting cortisone injections. He has had this done once before. He follows with [facility]. Memory - He feels like his memory is about the same since last time. Neurology visit is scheduled for 06/20/2025. GERD - controlled as long as he takes his medicine. Dry Skin - still having dry skin - not using emolients or lotions. No abrasions or rashes. Neuropathy - well controlled - still taking nortriptyline Primary hypertension - checks BP every day and takes medicine only if it is high - only takes medicine about twice a week - takes his medication if his BP is above 140 systolic Tobacco Use Current tobacco use?: No All medications have been reviewed today. Current Outpatient Medications Medication Instructions abacavir (ZIAGEN) 600 mg, Oral, Daily acetaminophen (TYLENOL) 325-650 mg, Oral, Every 6 hours PRN atorvastatin (LIPITOR) 80 mg, Oral, Nightly buPROPion XL (WELLBUTRIN XL) 300 mg, Oral, Daily, Do not crush, chew, or split. clopidogrel (PLAVIX) 75 mg, Oral, Daily diclofenac (VOLTAREN) 1-2 g, Transdermal, As needed, Use sparingly on affected area dolutegravir (TIVICAY) 50 mg, Oral, Daily Emollient (Eucerin Daily Hydration) lotion APPLY DAILY TO ENTIRE BODY AFTER GETTING OUT OF SHOWER escitalopram (LEXAPRO) 20 mg, Oral, Daily famotidine (PEPCID) 20 mg, Oral, 2 times daily PRN gabapentin (Neurontin) 300 MG capsule HYDROcodone-acetaminophen ([place]) 7.5-325 MG tablet 7.5 mg of hydrocodone, 2 times daily lamiVUDine (EPIVIR) 150 mg, Oral, Daily Lidocaine Pain Relief 4 % patch APPLY ONE PATCH TO AFFECTED AREA FOR 12 HOURS THEN REMOVE AND LEAVEOFF FOR 12 HOURS. USE NEEDED FOR PAIN. loperamide (Imodium) 2 MG capsule methylPREDNISolone acetate (DEPO-Medrol) 80 MG/ML injection metoprolol succinate XL (TOPROL-XL) 50 mg, Oral, Daily Multiple Vitamins-Minerals (One Daily Mens Health) tablet TAKE 1 TABLET BY MOUTH DAILY AT LEAST 6 HOURS APART FORM DOLUTEGRAVIR nortriptyline (PAMELOR) 50 mg, Oral, Nightly pantoprazole (PROTONIX) 20 mg, Oral, Daily before breakfast, Do not crush, chew, or split. pregabalin (LYRICA) 50 mg, Oral, 2 times daily PRN Repatha SureClick 140 mg, Subcutaneous, Every 14 days, Inject 140mg every two weeks subcutaneously. spironolactone-hydroCHLOROthiazide (Aldactazide) 25-25 MG tablet 25 mg, Oral, Daily tadalafil (Cialis) 10 MG tablet Take 1 tablet 30-60 min before sex tamsulosin (FLOMAX) 0.4 mg, Oral, Nightly triamcinolone acetonide (Kenalog-40) 40 MG/ML injection IM x 1 dose The following portions of the patient's chart were reviewed in this encounter and updated as appropriate: past medical history, surgical history, family history, tobacco history, allergies, and medications Review of Systems Constitutional: Negative for fever. HENT: Negative for trouble swallowing. Eyes: Negative for visual disturbance. Respiratory: Negative for shortness of breath. Cardiovascular: Negative for chest pain. Gastrointestinal: Negative for constipation, diarrhea, nausea and vomiting. Genitourinary: Negative for difficulty urinating and hematuria. Musculoskeletal: Knee pain Leg weakness Skin: Negative for rash. Neurological: Negative for syncope and headaches. Memory issues Psychiatric/Behavioral: Negative for suicidal ideas. The patient is not nervous/anxious. Objective Visit Vitals BP 129/79 (BP Location: Right arm, Patient Position: Sitting, BP Cuff Size: Adult) Pulse 59 Temp 36.6 ??C (97.8 ??F) (Oral) Wt 64.5 kg (142 lb 3.2 oz) SpO2 98% Comment: RA BMI 23.66 kg/m?? Physical Exam Vitals reviewed. Constitutional: General: He is not in acute distress. Appearance: He is well-developed. HENT: Mouth/Throat: Mouth: Mucous membranes are moist. No oral lesions. Pharynx: No oropharyngeal exudate or posterior oropharyngeal erythema. Eyes: Extraocular Movements: Extraocular movements intact. Conjunctiva/sclera: Conjunctivae normal. Cardiovascular: Rate and Rhythm: Normal rate and regular rhythm. Heart sounds: Normal heart sounds. Pulmonary: Effort: Pulmonary effort is normal. No respiratory distress. Breath sounds: Normal breath sounds. Musculoskeletal: General: No swelling. Lymphadenopathy: Cervical: No cervical adenopathy. Skin: General: Skin is warm and dry. Capillary Refill: Capillary refill takes less than 2 seconds. Neurological: Mental Status: He is alert and oriented to person, place, and time. Psychiatric: Mood and Affect: Mood normal. Behavior: Behavior normal. I have reviewed the following labs: Lab Results Component Value Date ABSCD4 819 02/07/2025 PCCD4 31.1 (L) 02/07/2025 Lab Results Component Value Date CTRPCR Not Detected 02/07/2025 NGOPCR Not Detected 02/07/2025 SYPHT Reactive (A) 02/07/2025 RTITER Pos 1:1 (A) 02/07/2025 No results found for: MARILIA Lab Results Component Value Date WBC 7.51 05/23/2025 HGB 10.9 (L) 05/23/2025 PLT 156 05/23/2025 Lab Results Component Value Date NA 141 05/09/2025 CL 105 05/09/2025 K 4.9 05/09/2025 CO2 22 05/09/2025 BUN 26 (H) 05/09/2025 CREATININE 1.87 (H) 05/09/2025 CA 9.4 03/26/2021 PROT 8.9 (H) 11/29/2015 ALBUMIN 3.6 05/09/2025 AST 24 05/09/2025 ALT 20 05/09/2025 EGFR 37.5 05/09/2025 Assessment/Plan Gastroesophageal reflux disease without esophagitis -Well controlled -continue 20 mg PPI daily + PRN famotidine Dry skin - does not use emollients or lotions after showers - encouraged to moisturize the skin after showers Chronic kidney disease (CKD), stage III (moderate) ([facility]) Lab Results Component Value Date CREATININE 1.87 (H) 05/09/2025 CREATININE 1.95 (H) 03/08/2025 EGFR 37.5 05/09/2025 EGFR 35.7 03/08/2025 -stable -continue lisinopril 5 -following with nephrology, last seen 07/24 with 1 yr follow-up Benign prostatic hyperplasia -Well controlled -Continue flomax 0.4 Bilateral primary osteoarthritis of knee -his knees have repeatedly given out causing falls -he is still considering cortisone shot -strongly encouraged him to consider given worsening functional status Arteriosclerosis of coronary artery -no recent anginal pains -Continue current medication regimen (atorva 80, repatha, BB, plavix) -continue to follow with cardiology Memory loss -memory loss is not rapidly progressive but chronic -Metabolic/infectious workup negative (kidney, liver, syphilis, vit B12) -MRI w/out contrast given renal function- mild chronic small vessel disease -MOCA 08/24 , repeat 11/23 improved to -he did not bring advanced directives -difficult to say he has dementia because no identifiable functional deficit but he isn't responsible for many IADLs ( and daughter do most of them) -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 He has one but doesn't carry because he doesn't need it most of the time but discussed that we can't predict when he will fall Healthcare maintenance Healthcare Maintenance Immunizations Immunization History Administered Date(s) Administered DTaP, Unspecified 10/18/2010 Hep A / Hep B 10/18/2010, 11/19/2010, 02/28/2011 Hep B, adult 06/06/2014, 10/17/2014 Influenza, High-dose, Split Virus, Trivalent, Injectable, preservative free 08/06/2024 Influenza, Unspecified 09/20/2010, 08/29/2011 Influenza, high-dose, quadrivalent 09/05/2020, 09/13/2021, 01/05/2024 Influenza, injectable, quadrivalent, preservative free 08/22/2015, 11/04/2018, 11/03/2019, 08/14/2022 Influenza, seasonal, injectable 09/20/2010, 01/03/2014, 10/17/2014, 08/26/2016, 09/24/2017, 09/05/2020 Influenza, seasonal, injectable, preservative free 07/31/2012 Influenza, seasonal, intradermal, preservative free 01/03/2014 Meningococcal MCV4O 02/06/2024 Meningococcal MCV4P 09/24/2017, 02/04/2018 Moderna COVID-19 Vaccine (Rouge Sifter And Miller) 12+ years 01/25/2021, 02/22/2021, 07/26/2021 Moderna COVID-19 Vaccine Bivalent 6months+ 08/14/2022 PPD Skin Test (TB Skin Test) 01/02/2012 Pfizer Covid-19 Vaccine 12y+, Wilmer Protein, PF, Sal-Sucrose 01/05/2024, 09/08/2024 Pneumococcal 20-miller Conj Vaccine 03/19/2023 Pneumococcal Conjugate PCV 13 01/29/2013 Pneumococcal Polysaccharide PPV23 04/24/2016 Pneumococcal, Unspecified 08/05/2010 Rsvpref, Recombinant, Protein Subunit, Adjuvent 05/05/2024 Tdap 10/18/2010, 02/27/2015, 05/16/2025 Zoster, Recombinant 09/05/2020, 11/27/2020 - Lab Results Component Value Date HAG Positive (A) 03/19/2023 HEPBSAB Indeterminate (A) 03/19/2023 -immune hep A, indeterminate hep B Cancer Screenings Anal pap: 01/22 negative Colon cancer: normal 2015, next due in 2025 Lung cancer: not indicated, quit > 15 yrs ago Other Screenings DEXA: 01/24 osteopenia, repeat 01/26 AAA: screen negative in 09/18 Labs ASCVD: CAD, on statin A1c: Lab Results Component Value Date HGBA1C 5.5 12/30/2022 Referrals Dentist: edentulous Ophthalmology: Follow-up in 6 months EILEEN Rosario-S Cosigned by Kayleigh Del Cid MD at 05/25/2025 4:27 PM EDT Associated attestation - Kayleigh Del Cid MD - 05/25/2025 4:27 PM EDT I saw and evaluated the patient with the medical/CHAIRMAN CEO/PA student. I discussed the case with the medical/CHAIRMAN CEO/PA student and agree with the findings and plan as documented. I personally performed the Examand Medical Decision Making. Kayleigh Del Cid MD documented in this encounter Plan of Treatment Upcoming Encounters Date Type Department Care Team (Late st Contact Info) Description 08/31/2025 1:00 PM EDT Office Visit [facility] [address] [place] [phone] Mike Harley PA [address] [facility] [address] [place] [address] 11/16/2025 9:30 AM EST Office Visit [address] [phone] [place] [address] [place] [address] [address] [place] [address] 11/16/2025 10:30 AM EST Office Visit [address] [phone] Kayleigh Del Cid MD [address] [place] [address] [address] [place] [address] 01/11/2026 8:15 AM EST Office Visit [facility] [address] [facility] [place] [address] Dirk Hoffman, OD [address] [address] Scheduled Referrals Name Type Priority Associated Diagnoses Orde r Schedule Follow Up ID Outpatient Referral Routine Coronary arteriosclerosis Expected: 11/15/2025, Expires: 2026 documented as of this encounter Goals Goal Patient Goal Type Associated Problems Recent Progress Patient-Stated? Author Patient to remain active in HIV care Care Plan Treatment Adherence On track(2024 11:44 AM EDT) No Cece Castro Patient to remain active on part B services/RW kristen-eligible Care Plan Treatment Adherence On track(2024 11:44 AM EDT) Cece Olivera Patient to maintain undetectable viral load Care Plan Treatment Adherence On track(2024 11:44 AM EDT) No Cece Castro Reduce transportation barriers to medical appts PRN Care Plan Transportation On track(2024 11:44 AM EDT) No Cece Castro Note: Gas cards for travel to clinic documented as of this encounter Results * Lipid Profile, Plasma (06/06/2025 10:44 AM EDT) Cholesterol, Plasma 86 <200 mg/dL 06/06/2025 12:33 PM EDT [facility] Comment: Cholesterol Reference Range (age >17 years): Desirable <200 mg/dL Borderline 200 to 239 mg/dL Undesirable >239 mg/dL HDL 53 >=40 mg/dL 06/06/2025 12:33 PM EDT [facility] Comment: HDL Cholesterol Reference Ranges (age >17 years): Female, acceptable > or = 50 mg/dL Male, acceptable > or = 40 mg/dL Triglycerides, Plasma 91 <150 mg/dL 06/06/2025 12:33 PM EDT [facility] Comment: Triglyceride Reference Range (age >17 years): Desirable: <150 mg/dL Borderline high: 150 to 199 mg/dL High: 200 to 499 mg/dL Very high: >499 mg/dL Increased risk of pancreatitis: >1000 mg/dL Cholesterol/HDL Ratio 2 06/06/2025 12:33 PM EDT [facility] LDL, Calculated 15 <100 mg/dL 12:33 PM EDT [facility] Comment: LDL Cholesterol Reference Range (age >17 years): Optimal: <100 mg/dL Near or above optimal: 100 - 129 mg/dL Borderline high: 130 - 159 mg/dL High: 160 - 189 mg/dL Very high: >189 mg/dL LDL Cholesterol Reference Range (age <18 years): Desirable: <110 mg/dL Borderline: 110 - 129 mg/dL Undesirable: >130 mg/dL LDL Cholesterol is calculated using the Chadwick/NIH equation. Fasting greater than or equal to 12 hours? Yes 06/06/2025 12:33 PM EDT [facility] Blood Venous blood specimen / Unknown Venipuncture / Unknown 06/06/2025 10:44 AM EDT 06/06/2025 10:48 AM EDT us Kayleigh Del Cid MD LAB BLOOD ORDERABLES Andreea damico Result [facility] [address] [place] [address] documented in this encounter Visit Diagnoses Diagnosis Coronary arteriosclerosis- Primary Coronary atherosclerosis of unspecified type of vessel, qagan tayagungin or graft Pure hypercholesterolemia Depression, unspecified depression type Healthcare maintenance Gastroesophageal reflux disease without esophagitis Esophageal reflux Dry skin Other symptoms involving skin and integumentary tissues Stage 3b chronic kidney disease (CMS/HCC) Benign prostatic hyperplasia with nocturia Bilateral primary osteoarthritis of knee Memory loss Neuropathy Mononeuritis of unspecified site Recurrent falls documented in this encounter Additional Health Concerns Active Problems Noted Date Diagnosed Date Treatment Adherence 07/05/2021 Transportation 07/05/2021 Assessment Noted Time PHQ-9 Depression Total Score: 1 05/16/20 3:12 PM EDT A fall risk assessment has been complete d for the patient 05/16/2025 3:12 PM EDT A Body Mass Index follow-up plan has been documented for the patient 05/25/2025 4:27 PM EDT documented as of this encounter Care Teams Corrugated Sheet Material Sheeter Relationship Specialty Start Date End Date Kayleigh Del Cid MD [address] [place] [address] PCP - General Internal Medicine 04/02/23 Magalis uRiz Commercial Estimator Manager Reporting 07/25/22 Imtiaz Caraballo MD [address] [place] [address] Family Medicine 04/02/23 Scottie Solo MD [address] [place] [phone] Consulting Physician Infectious Diseases 01/09/24 documented as of this encounter
--- OUTSIDE RECORDS SUMMARY | 2025-05-16 16:30 | XMS_ITS | Encounter Summary ---
Author Organization [facility] Address [address] [place] [address] Care Team Providers Care Dairy Products Maker Name Role Phone Magalis Ruiz Unavailable Unavailable Kayleigh Del Cid MD Primary Care Provider [phone] Imtiaz Caraballo MD Unavailable Unavailab Scottie Davenport MD Unavailable Encounter Details Date Type Department Care Team (Late st Contact Info) Description 05/16/2025 4:30 PM EDT Immunization [facility] [address] [place] [phone] Need for Tdap vaccination (Primary Dx) Social History Tobacco Use Types Packs/Day Years Used Date Smoking Tobacco: Former Cigarettes Q uit: 1985 Passive Smoke Exposure: Current Smokeless Tobacco: Never [...] on file documented as of this encounter Functional Status * AUDIT-C Score [...] usual. Not at all 05/16/2025 3:12 PM EDT Andrew Whittaker Thoughts that you would be b eliel off or hurting yourself in some way Not at all 05/16/2025 3:12 PM EDT Andrew Whittaker Patient Health Questionnaire-9 Score 1 05/01 3:12 [...] Andrew Whittaker documented as of this encounter Plan of Treatment Upcoming Encounters Date Type Department Care Team (Late st Contact Info) Description 08/31/2025 1:00 PM EDT Office Visit [address] [phone] Mike Harley PA [address] [place] [address] 11/16/2025 9:30 AM EST Office Visit [address] [phone] Scottie Solo MD [address] [place] [address] 11/16/2025 10:30 AM EST Office Visit [address] [phone] Kayleigh Del Cid MD [address] [place] [phone] 01/11/2026 8:15 AM EST Office Visit [facility] [address] [place] [address] Dirk Hoffman, OD [address] [place] [address] documented as of this encounter Goals Goal Patient Goal Type Associated Problems Recent Progress Patient-Stated? Author Patient to remain active in HIV care Care Plan Treatment Adherence On track(2024 11:44 AM EDT) No Cece Castro Patient to remain active on part B services/RW kristen-eligible Care Plan Treatment Adherence On track(2024 11:44 AM EDT) No Cece Castro L Patient to maintain undetectable viral load Care Plan Treatment Adherence On track(2024 11:44 AM EDT) No Cece Castro Reduce transportation barriers to medical appts PRN Care Plan Transportation On track(2024 11:44 AM EDT) No Cece Castro Note: Gas cards for travel to clinic documented as of this encounter Visit Diagnoses Diagnosis Need for Tdap vaccination- Primary Need for prophylactic vaccination with combined ckksyznddk-vgshhvo-mymygmaar (DTP) vaccine documented in this encounter Additional Health Concerns Active Problems Noted Date Diagnosed Date Treatment Adherence 07/05/2021 Transportation 07/05/2021 Assessment Noted Time PHQ-9 Depression Total Score: 1 05/16/20 25 3:12 PM EDT A fall risk assessment has been complete d for the patient 05/16/2025 3:12 PM EDT A Body Mass Index follow-up plan has been documented for the patient 05/25/2025 4:27 PM EDT documented as of this encounter Care Teams Dairy Products Maker Relationship Specialty Start Date End Date Kayleigh Del Cid MD [address] [place] [address] [address] [place] [address] PCP - General Internal Medicine 04/02/23 Magalis Ruiz Make Ready Worker Mechanical Test Technician 07/25/22 Imtiaz Caraballo MD [address] [place] [address] [address] [place] [address] Family Medicine 04/02/23 Scottie Solo MD [facility] [address] [place] [address] Consulting Physician Infectious Diseases 01/09/24 documented as of this encounter
--- OUTSIDE RECORDS SUMMARY | 2025-06-06 10:00 | XMS_ITS | Encounter Summary ---
Author Organization [facility] Address [address] [place] [address] Care Team Providers Care Narrow Gauge Brakeman Name Role Phone Magalis Ruiz Unavailable Unavailable Kayleigh Del Cid MD Primary Care Provider [phone] Imtiaz Caraballo MD Unavailable Unavailab Scottie Davenport MD Unavailable Reason for Referral * Consultation (Routine) - Authorized Specialty Diagnoses / Procedures Referred By Contac t Referred To Contact Diagnoses HIV disease ([facility]/HCC) Scottie Solo MD [address] [place] [phone] Phone: tel: fax: Referral ID Status Reason Start Date Expiration Date V isits Requested Visits Authorized [id number] Authorized 06/06/2025 12/06/2026 1 1 * Consultation (Routine) - Authorized Specialty Diagnoses / Procedures Referred By Contac t Referred To Contact Sports Medicine Diagnoses Chronic pain of right knee Scottie Solo MD [address] [place] [phone] Phone: tel: fax: Referral ID Status Reason Start Date Expiration Date Visits Requested Visits Authorized [id number] Authorized Specialty Services Required 06/06/2025 12/06/2026 1 1 Scheduling Instructions Right knee pain Encounter Details Date Type Department Care Team (Late st Contact Info) Description 06/06/2025 10:00 AM EDT Office Visit [facility] [address] [place] [address] Scottie Solo MD [address] [facility] [address] [place] [address] Chronic pain of right knee [...] knee pain Past Medical History: Diagnosis Date MARGARET (acute kidney injury) (CMS/HCC) 07/30/2024 Alcohol abuse, [...] STENT PLACEMENT N/A Arterial stent placement from [employer] [employer] [facility] HEMORRHOID SURGERY N/A Hemorrhoidectomy from [employer] Family History Problem Relation Name Age of [...] MG capsule, , Disp: , Rfl: HYDROcodone-acetaminophen ([place]) 7.5-325 MG tablet, Take 1 tablet (7.5 [...] Meningococcal MCV4P 09/24/2017, 02/04/2018 Moderna COVID-19 Vaccine (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) 12+ years 01/25/2021, 02/22/2021, 07/26/2021 Moderna COVID-19 [...] Education Provided: Adherence Counseling Scottie Solo MD [address] [phone] documented in this encounter Plan of Treatment Upcoming Encounters Date Type Department Care Team (Late st Contact Info) Description 08/31/2025 1:00 PM EDT Office Visit [address] [phone] Mike Harley PA [address] [place] [address] [address] [place] [address] 11/16/2025 9:30 AM EST Office Visit [address] [phone] Scottie Solo MD [address] [facility] [address] [place] [address] 11/16/2025 10:30 AM EST Office Visit [facility] [address] [place] [address] Kayleigh Del Cid MD [address] [facility] [address] [place] [address] 01/11/2026 8:15 AM EST Office Visit [facility] [address] [facility] [place] [address] Dirk Hoffman, OD [address] [facility] [address] [place] [address] Scheduled Referrals Name Type Priority Associated Diagnoses Order Schedule Ambulatory referral to Orthopaedics Sports Medicine Outpatient Referral Routine Chronic pain of right knee 1 Occurrences starting 06/06/2025 until 12/08/2026 Follow Up ID Outpatient Referral Routine HIV disease ([facility]) Expected: 11/16/2025, Expires: 07/07/2026 documented as of [...] Known Syphilis) (06/06/2025 10:44 AM EDT) Pathologist [facility] Rapid Plasma Reagin Reactive( A) Non Reactive 06/07/2025 2:21 AM EDT [facility] Blood Venous blood specimen / Unknown Venipuncture / Unknown 06/06/2025 10:44 AM EDT 06/06/2025 10:48 AM EDT us Scottie Solo MD LAB BLOOD ORDERABLES Final Resul t Performing Organization Address [facility] Co de Phone Number [facility] [address] [place] [address] * Human Immunodeficiency Virus (HIV-1) Quantitative PCR (06/06/2025 10:44 AM EDT) Pathologist [facility] Human Immunodeficiency Virus (HIV-1) Quant Interpretation Not Detected Not Detected 06/07/2025 4:21 AM EDT [facility] Blood Venous blood specimen / Unknown Venipuncture / Unknown 06/06/2025 10:44 AM EDT 06/06/2025 10:48 AM EDT Narrative [facility] - 06/07/2025 4:21 AM EDT [...] ORDERABLES Final Resul t Performing Organization Address [facility] [place] [address] * (ABNORMAL) Comprehensive Metabolic Panel, Plasma (06/06/2025 10:44 AM EDT) Glucose, Plasma 96 74 - 99 mg/dL 06/06/2025 12:33 PM EDT [facility] BUN, Plasma 23 8 - 23 mg/dL 06/06/2025 12:33 PM EDT [facility] Creatinine, Plasma 2.00(H) 0.70 - 1.20 mg/dL 06/06/2025 12:33 PM EDT [facility] BUN/Creatinine Ratio 12 06/06/2025 12:33 PM EDT [facility] Sodium, Plasma 139 136 - 145 mmol/L 06/06/2025 12:33 PM EDT [facility] Potassium, Plasma 4.9 3.6 - 4.9 mmol/L 06/06/2025 12:33 PM EDT [facility] Chloride, Plasma 101 97 - 107 mmol/L 06/06/2025 12:33 PM EDT [facility] CO2, Plasma 26 22 - 29 mmol/L 06/06/2025 12:33 PM EDT [facility] Anion Gap 12 6 - 16 mmol/L 06/06/2025 12:33 PM EDT [facility] Total Calcium, Plasma 9.4 8.9 - 10.2 mg/dL 06/06/2025 12:33 PM EDT [facility] Total Protein 7.4 6.3 - 7.9 g/dL 06/06/2025 12:33 PM EDT [facility] Albumin, Plasma 4.4 3.5 - 5.2 g/dL 06/06/2025 12:33 PM EDT [facility] AST, Plasma 37 10 - 50 U/L 06/06/2025 12:33 PM EDT [facility] ALT, Plasma 50 10 - 50 U/L 06/06/2025 12:33 PM EDT [facility] Alkaline Phosphatase, Plasma 101 40 - 115 U/L 06/06/2025 12:33 PM EDT [facility] Total Bilirubin, Plasma 0.3 0.2 - 1.1 mg/dL 06/06/2025 12:33 PM EDT [facility] eGFRcr 34.6 mL/min/1.7 3m*2 06/06/2025 12:33 PM EDT [facility] Comment:Reported eGFRcr in m L/min/1.73m2 is based the CKD-EPI 2020 equation that does not use a race coefficient. Blood Venous blood specimen / Unknown Venipuncture / Unknown 06/06/2025 10:44 AM EDT 06/06/2025 10:48 AM EDT us Scottie Solo MD LAB BLOOD ORDERABLES Final Resul t [facility] [address] [place] [address] * (ABNORMAL) Lymphocyte Subset Enumeration (TBNK) (06/06/2025 10:44 AM EDT) Percent CD3 76.4 57.5 - 83.1 % 06/06/2025 7:22 PM EDT [facility] Absolute CD3 1,991 860 - 2,670 cells/uL 06/06/2025 7:22 PM EDT [facility] Percent CD4 32.2 31.5 - 62.4 % 06/06/2025 7:22 PM EDT [facility] Absolute CD4 839 490 - 1,730 cells/uL 06/06/2025 7:22 PM EDT [facility] Percent CD8 41.6(H) 9.5 - 38.3 % 06/06/2025 7:22 PM EDT [facility] Absolute CD8 1,083(H) 160 - 1,070 cells/uL 06/06/2025 7:22 PM EDT [facility] Percent CD19 7.3 6.0 - 24.2 % 06/06/2025 7:22 PM EDT [facility] Absolute CD19 189 73 - 562 cells/uL 06/06/2025 7:22 PM EDT [facility] Percent CD16+CD56 16.0 5.2 - 30.4 % 06/06/2025 7:22 PM EDT [facility] Absolute CD16+CD56 418 110 - 680 cells/uL 06/06/2025 7:22 PM EDT [facility] CD4:CD8 Ratio 0.78 06/06/2025 7:22 PM EDT [facility] Blood Venous blood specimen / Unknown Venipuncture / Unknown 06/06/2025 10:44 AM EDT 06/06/2025 10:48 AM EDT us Scottie Solo MD LAB FLOW CYTOMETRY ORDERABLES Fi nal Result [facility] [address] [place] [address] * (ABNORMAL) CBC and Differential (06/06/2025 10:44 AM EDT) WBC Count 7.74 3.70 - 10.30 10*3/uL LAB HEMATOLOGY METHOD 06/06/2025 12:29 PM EDT [facility] RBC Count 3.42(L) 4.60 - 6.10 10*6/uL LAB HEMATOLOGY METHOD 06/06/2025 12:29 PM EDT [facility] HGB 11.0(L) 13.7 - 17.5 g/dL LAB HEMATOLOGY METHOD 06/06/2025 12:29 PM EDT [facility] HCT 33.2(L) 40.0 - 51.0 % LAB HEMATOLOGY METHOD 06/06/2025 12:29 PM EDT [facility] Platelet Count 165 155 - 369 10*3/uL LAB HEMATOLOGY METHOD 06/06/2025 12:29 PM EDT [facility] MCV 97 79 - 98 fL LAB HEMATOLOGY METHOD 06/06/2025 12:29 PM EDT [facility] MCH 32.2(H) 26.0 - 32.0 pg LAB HEMATOLOGY METHOD 06/06/2025 12:29 PM EDT [facility] MCHC 33.1 30.7 - 35.5 g/dL LAB HEMATOLOGY METHOD 06/06/2025 12:29 PM EDT [facility] RDW 14.0 11.5 - 14.5 % LAB HEMATOLOGY METHOD 06/06/2025 12:29 PM EDT [facility] MPV 10.1 8.8 - 12.5 fL LAB HEMATOLOGY METHOD 06/06/2025 12:29 PM EDT [facility] nRBC 0.0 <=0.0 per 100 WBCs LAB HEMATOLOGY METHOD 06/06/2025 12:29 PM EDT [facility] Differential Type Automated LAB HEMATOLOGY METHOD 06/06/2025 12:29 PM EDT [facility] Neutrophils % 57 % LAB HEMATOLOGY METHOD 06/06/2025 12:29 PM EDT [facility] Lymphocytes % 31 % LAB HEMATOLOGY METHOD 06/06/2025 12:29 PM EDT [facility] Monocytes % 7 % LAB HEMATOLOGY METHOD 06/06/2025 12:29 PM EDT [facility] Eosinophils % 3 % LAB HEMATOLOGY METHOD 06/06/2025 12:29 PM EDT [facility] Basophils % 1 % LAB HEMATOLOGY METHOD 06/06/2025 12:29 PM EDT [facility] Immature Granulocytes % 1 % LAB HEMATOLOGY METHOD 06/06/2025 12:29 PM EDT [facility] Neutrophils Absolute 4.45 1.60 - 6.10 10*3/uL LAB HEMATOLOGY METHOD 06/06/2025 12:29 PM EDT [facility] Lymphocytes Absolute 2.43 1.20 - 3.90 10*3/uL LAB HEMATOLOGY METHOD 06/06/2025 12:29 PM EDT [facility] Monocytes Absolute 0.53 0.30 - 0.90 10*3/uL LAB HEMATOLOGY METHOD 06/06/2025 12:29 PM EDT [facility] Eosinophils Absolute 0.23 0.00 - 0.50 10*3/uL LAB HEMATOLOGY METHOD 06/06/2025 12:29 PM EDT [facility] Basophils Absolute 0.05 0.00 - 0.10 10*3/uL LAB HEMATOLOGY METHOD 06/06/2025 12:29 PM EDT [facility] Immature Granulocytes Absolute 0.05 0.00 - 0.06 10*3/uL LAB HEMATOLOGY METHOD 06/06/2025 12:29 PM EDT [facility] Blood Venous blood specimen / Unknown Venipuncture / Unknown 06/06/2025 10:44 AM EDT 06/06/2025 10:48 AM EDT [facility] 06/06/[facility]25 12:29 PM EDT Therapeutic decision making should be based on absolute values, rather than percentages. us Scottie Solo MD LAB BLOOD ORDERABLES Final Resul t [facility] [address] [place] [address] documented in this encounter Visit Diagnoses Diagnosis [...] documented as of this encounter Care Teams Narrow Gauge Brakeman Relationship Specialty Start Date End Date Kayleigh Del Cid MD [address] [place] [address] PCP - General Internal Medicine 04/02/23 Magalis Ruiz Occupational Ther Director Sales And Marketing 07/25/22 Imtiaz Caraballo MD [address] [place] [phone] Family Medicine 04/02/23 Scottie Solo MD [address] [place] [address] Consulting Physician Infectious Diseases 01/09/24 documented as of this encounter
--- OUTSIDE RECORDS SUMMARY | 2025-07-01 16:00 | XMS_ITS | Encounter Summary ---
Author Organization [facility] Address [address] [place] [address] Care Team Providers Care Life Underwriter Name Role Phone Magalis Ruiz Unavailable Unavailable Kayleigh Del Cid MD Primary Care Provider [phone] Imtiaz Caraballo MD Unavailable Unavailab Scottie Davenport MD Unavailable Reason for Referral * Consultation (Routine) - Authorized Specialty Diagnoses / Procedures Referred By Toni gautam Referred To Contact Physical Therapy Diagnoses Arthritis Falls frequently Mike Harley PA [address] [place] [phone] Phone: tel: fax: Medical Office Building Physical Therapy [address] [facility], [address] [place] [address] Phone: tel: fax: Referral ID Status Reason Start Date Expiration Date Visits Requested Visits Authorized [id number] Authorized Consult and Treat 07/01/2025 12/31/2026 1 1 Scheduling Instructions Should focus on balance, mobility affected by knee pain. He uses a cane for walking assistance * Consultation (Routine) - Authorized Specialty Diagnoses / Procedures Referred By Toni gautam Referred To Contact Diagnoses Arthritis Mike Harley PA [address] [place] [phone] Phone: tel: fax: Referral ID Status Reason Start Date Expiration Date V isits Requested Visits Authorized [id number] Authorized 07/01/2025 12/31/2026 1 1 Encounter Details Date Type Department Care Team (Late st Contact Info) Description 07/01/2025 4:00 PM EDT Office Visit [facility] [address] [place] [address] Mike Harley PA [address] [facility] [address] [place] [address] Falls frequently (Primary Dx); Arthritis Social History Tobacco Use Types Packs/Day Years Used Date Smoking Tobacco: Former Cigarettes Q uit: 1985 Passive Smoke Exposure: Current Smokeless Tobacco: Never Alcohol Use Standard Drinks/Week Comments Not Currently 0 (1 standard drink = 0.6 oz pur e alcohol) quit March 2021 PHQ-2 Answer Date Recorded Patient Health Questionnaire-2 Score 0 07/01/2025 PHQ-9 Answer Date Recorded Patient Health Questionnaire-9 [...] Sign Reading Time Taken Comments Blood Pressure 108/64 07/01/2025 3:44 PM EDT Pulse 64 07/01/2025 3:44 PM EDT Temperature 36.4 C (97.6 F) 07/01/2025 3:44 PM EDT Respiratory Rate - - Oxygen Saturation 97% 07/01/2025 3:44 PM EDT Inhaled Oxygen Concentration - - Weight 62.8 kg (138 lb 7.2 oz) 07/01/2025 3:44 P M EDT Height 152.4 cm (5') 07/01/2025 3:44 PM EDT Body Mass Index 27.04 07/01/2025 3:44 PM EDT documented in this encounter Functional Status * Over the past 2 weeks, how often have you been bothered by any of the following problems? Question Answer Date of Assessment Author Little interest or pleasure in doing things Not at all 07/01/2025 3:45 PM EDT Mica King Feeling down, depressed, or hopeless Not at all 07/01/2025 3:45 PM EDT Mica King Patient Health Questionnaire -2 Score 0 07/01/2025 3:45 PM EDT Mica King documented as of this encounter Miscellaneous Notes * Assessment & Plan Note - Mike Harley PA - 07/11/2025 2:23 PM EDT Associated Problem(s): Falls frequently Advised to use cane at all times He is also amenable to PT/OT referrals for his knee pain - ordered today * Progress Notes - Mike Harley PA - 07/01/2025 4:00 PM EDT RW Primary Care Visit No chief complaint on file. Rk Rodriguez is a 75 y.o patient with PMH of HIV who presents for evaluation of frequent falls. He states that in the last 3 months he has had about 10-15 falls. He states legs will feel weak which then causes him to fall. He denies headaches, acute vision changes, palpitations, chest pain. Does report gradual vision loss since last eye exam - letters running together with small print. Denies eye pain, redness, visual field defects. He feels that his knee pain is most contributory. Falls occurring mostly when climbing steps and falls usually happen when he doesn't have cane. He does have 4 steps to get into his house. All medications have been reviewed today. Current [...] As needed, Use sparingly on affected area diclofenac (VOLTAREN) 4 g, Transdermal, 4 times daily, Apply topically to bilateral knees dolutegravir (TIVICAY) 50 mg, Oral, Daily Emollient (Eucerin Daily Hydration) lotion APPLY DAILY TO ENTIRE BODY AFTER GETTING OUT OF SHOWER escitalopram (LEXAPRO) 20 mg, Oral, Daily famotidine (PEPCID) 20 mg, Oral, 2 times daily PRN gabapentin (Neurontin) 300 MG capsule HYDROcodone-acetaminophen ([place]) 7.5-325 MG tablet 7.5 mg of hydrocodone, [...] history, allergies, and medications Review of Systems Per HPI Objective Visit Vitals BP 108/64 (BP Location: Left arm, Patient Position: Sitting, BP Cuff Size: Adult) Pulse 64 Temp 36.4 ??C (97.6 ??F) (Oral) Ht 1.524 m (5') Wt 62.8 kg (138 lb 7.2 oz) SpO2 97% BMI 27.04 kg/m?? Physical Exam Constitutional: General: He is not in acute distress. Appearance: Normal appearance. He is well-developed. HENT: Head: Normocephalic and atraumatic. Eyes: Conjunctiva/sclera: Conjunctivae normal. Cardiovascular: Rate and Rhythm: Normal rate. Pulmonary: Effort: Pulmonary effort is normal. Abdominal: General: There is no distension. Musculoskeletal: Cervical back: Normal range of motion. Skin: General: Skin is warm and dry. Neurological: General: No focal deficit present. Mental Status: He is alert. Mental status is at baseline. Psychiatric: Mood and Affect: Mood normal. Behavior: Behavior normal. I have reviewed the following labs: Lab Results Component Value Date ABSCD4 839 06/06/2025 PCCD4 32.2 06/06/2025 Lab Results Component Value Date CTRPCR Not Detected 02/07/2025 NGOPCR Not Detected 02/07/2025 SYPHT Reactive (A) 06/06/2025 RTITER Pos 1:1 (A) 06/06/2025 No results found for: MARILIA Lab Results Component Value Date WBC 7.74 06/06/2025 HGB 11.0 (L) 06/06/2025 PLT 165 06/06/2025 Lab Results Component Value Date NA 139 06/06/2025 CL 101 06/06/2025 K 4.9 06/06/2025 CO2 26 06/06/2025 BUN 23 06/06/2025 CREATININE 2.00 (H) 06/06/2025 CA 9.4 03/26/2021 PROT 8.9 (H) 11/29/2015 ALBUMIN 4.4 06/06/2025 AST 37 06/06/2025 ALT 50 06/06/2025 EGFR 34.6 06/06/2025 Assessment/Plan Falls frequently Advised to use cane at all times He is also amenable to PT/OT referrals for his knee pain - ordered today Follow-up in 3 months EILEEN Conti I personally spent a total of 21 minutes on this encounter. This time includes face to face with patient, counseling, documentation, placing orders, and discussion and/or coordination of care. documented in this encounter Plan of Treatment Upcoming Encounters Date Type Department Care Team (Late st Contact Info) Description 08/31/2025 1:00 [place] [address] Mike Harley PA [address] [place] [phone] 11/16/2025 9:30 AM EST Office Visit [address] [phone] Scottie Solo MD [address] [place] [phone] 11/16/2025 10:30 AM EST Office Visit [address] [phone] Kayleigh Del Cid MD [address] [place] [phone] 01/11/2026 8:15 AM EST Office Visit [facility] [address] [place] [address] Dirk Hoffman, OD [address] [phone] Scheduled Referrals Name Type Priority Associated Diagnoses Order Schedule Follow Up ID Outpatient Referral Routine Arthritis Expected: 08/31/2025, Expires: 08/01/2026 Ambulatory referral to Physical Therapy Outpatient Referral Routine Arthritis Falls frequently 1 Occurrences starting 07/01/2025 until 01/02/2027 documented as of this encounter Goals Goal [...] as of this encounter Visit Diagnoses Diagnosis Falls frequently- Primary Personal history of fall Arthritis Unspecified arthropathy, site unspecified documented in this encounter Additional Health Concerns Active Problems Noted Date Diagnosed Date Treatment Adherence 07/05/2021 Transportation 07/05/2021 Assessment Noted Time PHQ-9 Depression Total Score: 0 06/06/20 25 10:06 AM EDT A fall risk assessment has been complete d for the patient 07/01/2025 3:45 PM EDT A Body Mass Index follow-up plan has been documented for the patient 07/11/2025 2:24 PM EDT documented as of this encounter Care Teams Life Underwriter Relationship Specialty Start Date End Date Kayleigh Del Cid MD [address] [phone] PCP - General Internal Medicine 04/02/23 Magalis Ruiz Condominium Manager Outside Operator 07/25/22 Imtiaz Caraballo MD [address] [facility] [address] [place] [address] Family Medicine 04/02/23 Scottie Solo MD [facility] [address] [place] [phone] Consulting Physician Infectious Diseases 01/09/24 documented as of this encounter
[2025-07-12] VITALS (8 sets, daily range): BP systolic 107–173; BP diastolic 65–104; PULSE 57–71; RESP 14–18; TEMP 36.6; O2SAT 88–100; BMI 22.4
--- OUTSIDE RECORDS SUMMARY | 2025-07-12 10:46 | XMS_ITS | Encounter Summary ---
Author Organization [facility] Address [address] [place] [address] Care Team Providers Care Atomic Process Engineer Name Role Phone Magalis Ruiz Unavailable Unavailable Kayleigh Del Cid MD Primary Care Provider [phone] Imtiaz Caraballo MD Unavailable Unavailab Scottie Davenport MD Unavailable Reason for Visit * Reason Onset Date Comments [facility] Clinical Concern/Question 07/06/2025 Difficulty Urinating 07/06/2025 Encounter Details Date Type Department Care Team (Late st Contact Info) Description 07/06/2025 Telephone [facility] [address], [address] [place] [address] Israel Castro MD [address] [place] [address] [facility] Clinical Concern/Question; Difficulty Urinating [...] encounter Miscellaneous Notes * Telephone Encounter - Puja Valdivia - 07/11/2025 2:54 PM EDT Status Update Call #4 4th call regarding the status of the initial request. Patient calling back would like urgent call from krystal as he would like to get the catheter removed Best contact number: Other: [phone] or [phone] to his Optimal time of day to reach caller: ANYTIME Additional comments/information from caller: None Note: Please do not reply to this message. Follow-up communication and further actions as a result of this message need to be communicated with the patient directly, if the patient is not active onMyChart. If the patient is active on MyChart, they will receive notification of the communication/outcome via Loftwaret. * Telephone Encounter - Krystal Sharma - 07/11/2025 11:06 AM EDT Secure chat sent to the provider, Dr. Castro. * Telephone Encounter - Vicki Bryant - 07/11/2025 9:37 AM EDT Patient Phone Message Reason for Call: Pt states he had a UTI and had a catheter placed at [facility]. He wouldnow like Dr Castro to remove it. Best contact number and optimal time of day to reach caller: [phone] Note: Please do not reply to this message. Follow-up communication and further actions as a result of this message need to be communicated with the patient directly, if the patient is not active onMyChart. If the patient is active on MyChart, they will receive notification of the communication/outcome via MyChart. * Telephone Encounter - Dominique Valdivia - 07/08/2025 11:19 AM EDT Status Update Call #1 1st call regarding the status of the initial request. Best contact number: Other: [phone] Optimal time of day to reach caller: ANYTIME Additional comments/information from caller: None Note: Please do not reply to this message. Follow-up communication and further actions as a result of this message need to be communicated with the patient directly, if the patient is not active onMyChart. If the patient is active on MyChart, they will receive notification of the communication/outcome via MyChart. * Telephone Encounter - Mary Lou Nuñez - 07/06/2025 8:12 AM EDT Clinical Concern/Question Reason for Call: Patient would like a call back from a nurse deloris -- having difficulty urinating for about 6 hours. Best contact number: [phone] (mobile) Optimal time of day to reach caller: ANYTIME Additional comments/information from caller: None Note: Please do not reply to this message. Follow-up communication and further actions as a result of this message need to be communicated with the patient directly, if the patient is not active onMyChart. If the patient is active on MyChart, they will receive notification of the communication/outcome via MyChart. documented in this encounter Plan of Treatment Upcoming Encounters Date Type Department Care Team (Late st Contact Info) Description 08/31/2025 1:00 PM EDT Office Visit [address] [address] [place] [address] [place] [phone] 11/16/2025 9:30 AM EST Office Visit [address] [address] Scottie Solo MD [address] [place] [phone] 11/16/2025 10:30 AM EST Office Visit [address] [address] Kayleigh DelC id MD [address] [place] [address] 01/11/2026 8:15 AM EST Office Visit [facility] [address] [place] [address] Dirk Hoffman, OD [address] [address] documented as of this encounter [...] documented as of this encounter Care Teams Atomic Process Engineer Relationship Specialty Start Date End Date Kayleigh Del Cid MD [address] [place] [address] PCP - General Internal Medicine 04/02/23 Magalis Ruiz Fire Hydrant Mechanic Cleaning Professional 07/25/22 Imtiaz Caraballo MD [address] [place] [address] Family Medicine 04/02/23 Scottie Solo MD [address] [place] [phone] Consulting Physician Infectious Diseases 01/09/24 documented as of this encounter
--- OUTSIDE RECORDS SUMMARY | 2025-07-12 10:46 | XMS_ITS | Encounter Summary ---
Author Organization [facility] Address [address] [place] [address] Care Team Providers Care Sidewalk Repairer Name Role Phone Magalis Ruiz Unavailable Unavailable Kayleigh Del Cid MD Primary Care Provider [phone] Imtiaz Caraballo MD Unavailable Unavailab Scottie Davenport MD Unavailable Encounter Details Date Type Department Care Team (Late st Contact Info) Description 06/27/2025 Orders Only [facility] [address] [place] [address] Kayleigh Del Cid MD [address] [facility] [address] [place] [address] Primary hypertension (Primary Dx) Social [...] Description 08/31/2025 1:00 PM EDT Office Visit [address] [address] Mike Harley PA [address] [place] [address] 11/16/2025 9:30 AM EST Office Visit [address] [phone] Scottie Solo MD [address] [place] [phone] 11/16/2025 10:30 AM EST Office Visit [address] [address] Kayleigh Del Cid MD [address] [place] [phone] 01/11/2026 8:15 AM EST Office Visit [facility] [address] [facility] [place] [address] Dirk Hoffman, OD [address] [address] documented as of this encounter [...] documented as of this encounter Care Teams Sidewalk Repairer Relationship Specialty Start Date End Date Kayleigh Del Cid MD [address] [place] [address] PCP - General Internal Medicine 04/02/23 Magalis Ruiz Shipping Checker Plumber Cub 07/25/22 Imtiaz Caraballo MD [address] [place] [address] Family Medicine 04/02/23 Scottie Solo MD [address] [place] [address] Consulting Physician Infectious Diseases 01/09/24 documented as of this encounter
--- OUTSIDE RECORDS SUMMARY | 2025-07-12 10:46 | XMS_ITS | Encounter Summary ---
Author Organization [facility] Address [address] [place] [address] Care Team Providers Care Campus Interviews Intern Name Role Phone Magalis Ruiz Unavailable Unavailable Kayleigh Del Cid MD Primary Care Provider [phone] Imtiaz Caraballo MD Unavailable Unavailab Scottie Davenport MD Unavailable Encounter Details Date Type Department Care Team (Late st Contact Info) Description 06/07/2025 Results Follow-Up [facility] [address] [place] [address] Kayleigh Del Cid MD [address] [facility] [address] [place] [address] Social History Tobacco Use Types [...] Description 08/31/2025 1:00 PM EDT Office Visit [address] [phone] Mike Harley, EILEEN [address] [place] [address] 11/16/2025 9:30 AM EST Office Visit [address] [phone] Scottie Solo MD [address] [place] [address] 11/16/2025 10:30 AM EST Office Visit [address] [address] Kayleigh Del Cid MD [address] [place] [address] 01/11/2026 8:15 AM EST Office Visit [facility] [address] [place] [address] Dirk Hoffman, OD [address] [place] [address] documented as of this encounter [...] documented as of this encounter Care Teams Campus Interviews Intern Relationship Specialty Start Date End Date Kayleigh Del Cid MD [address] [place] [address] PCP - General Internal Medicine 04/02/23 Magalis Ruiz Egg Smeller Chemistry Teacher 07/25/22 Imtiaz Caraballo MD [address] [place] [address] Family Medicine 04/02/23 Scottie Solo MD [address] [place] [address] Consulting Physician Infectious Diseases 01/09/24 documented as of this encounter
--- OUTSIDE RECORDS SUMMARY | 2025-07-12 10:46 | XMS_ITS | Encounter Summary ---
Author Organization [facility] Address [address] [place] [address] Care Team Providers Care Financial Risk Manager Name Role Phone Magalis Ruiz Unavailable Unavailable Kayleigh Del Cid MD Primary Care Provider [phone] Imtiaz Caraballo MD Unavailable Unavailab Scottie Davenport MD Unavailable Encounter Details Date Type Department Care Team (Late st Contact Info) Description 05/16/2025 Patient Outreach [facility] [address] [place] [address] Noman Diallo Social History Tobacco [...] drinking? 1 or 2 05/16/2025 3:13 PM Anderw Ramos Q3: How often do you have [...] clinic visit Duration 1 hour D/A: [facility] met with pt during clinic visit and provided pt with $25 in gas cards. [facility] completed annual KADAP recertification and individualized care [...] Description 08/31/2025 1:00 PM EDT Office Visit [address] [phone] [place] [address] [place] [address] [address] [place] [address] 11/16/2025 9:30 AM EST Office Visit [address] [address] [place] [address] [place] [address] [address] [place] [address] 11/16/2025 10:30 AM EST Office Visit [address] [address] Kayleigh Del Cid MD [address] [place] [address] 01/11/2026 8:15 AM EST Office Visit [facility] [address] [facility] [place] [address] Dirk Hoffman, OD [address] [address] documented as of this encounter [...] documented as of this encounter Care Teams Financial Risk Manager Relationship Specialty Start Date End Date Kayleigh Del Cid MD [address] [place] [address] PCP - General Internal Medicine 04/02/23 Magalis Ruiz Deputy Building Guard Supervisor Dry Cleaning 07/25/22 Imtiaz Caraballo MD [address] [place] [address] Family Medicine 04/02/23 Scottie Solo MD [address] [place] [address] Consulting Physician Infectious Diseases 01/09/24 documented as of this encounter
--- OUTSIDE RECORDS SUMMARY | 2025-07-12 10:46 | XMS_ITS | Encounter Summary ---
Author Organization [facility] Address [address] [place] [address] Care Team Providers Care Paper Cutting Machine Operator Name Role Phone Magalis Ruiz Unavailable Unavailable Kayleigh Del Cid MD Primary Care Provider [phone] Imtiaz Caraballo MD Unavailable Unavailab Scottie Davenport [...] Description 08/31/2025 1:00 PM EDT Office Visit [address] [address] [place] [address] [place] [phone] 11/16/2025 9:30 AM EST Office Visit [address] [address] Scottie Solo MD [address] [place] [address] 11/16/2025 10:30 AM EST Office Visit [address] [address] Kayleigh Del Cid MD [address] [place] [address] 01/11/2026 8:15 AM EST Office Visit [facility] [address] [place] [address] Dirk Hoffman, OD [address] [address] documented as of this encounter [...] documented as of this encounter Care Teams Paper Cutting Machine Operator Relationship Specialty Start Date End Date Kayleigh Del Cid MD [address] [place] [address] PCP - General Internal Medicine 04/02/23 Magalis Ruiz Health Actuary Fixed Capital Clerk 07/25/22 Imtiaz Caraballo MD [address] [place] [address] Family Medicine 04/02/23 Scottie Solo MD [address] [place] [phone] Consulting Physician Infectious Diseases 01/09/24 documented as of this encounter
--- OUTSIDE RECORDS SUMMARY | 2025-07-12 10:46 | XMS_ITS | Encounter Summary ---
Author Organization [facility] Address [address] [place] [address] Care Team Providers Care General Passenger Agent Name Role Phone Magalis Ruiz Unavailable Unavailable Kayleigh Del Cid MD Primary Care Provider [phone] Imtiaz Caraballo MD Unavailable Unavailab Scottie Davenport MD Unavailable Reason for Visit * Reason Comments Med Refill Encounter Details Date Type Department Care Team (Late st Contact Info) Description 06/13/2025 Refill [facility] Otto Dalton [address] [facility] [place] [address] Jose Doty MD [address] [place] [address] Arteriosclerosis of coronary artery Social [...] Description 08/31/2025 1:00 PM EDT Office Visit [address] [phone] [place] [address] [place] [address] 100 [place] [address] 11/16/2025 9:30 AM EST Office Visit [address] [phone] Scottie Solo MD [address] [place] [address] 11/16/2025 10:30 AM EST Office Visit [address] [phone] Kayleigh Del Cid MD [address] [place] [address] 100 [place] [address] 01/11/2026 8:15 AM EST Office Visit [facility] [address] [facility] [place] [address] Dirk Hoffman, OD [address] [address] documented as of this encounter [...] documented as of this encounter Care Teams General Passenger Agent Relationship Specialty Start Date End Date Kayleigh Del Cid MD [address] [place] [address] PCP - General Internal Medicine 04/02/23 Magalis Ruiz Surgical Processor Process Control Technician 07/25/22 Imtiaz Caraballo MD [address] [place] [address] Family Medicine 04/02/23 Scottie Solo MD [address] [place] [address] Consulting Physician Infectious Diseases 01/09/24 documented as of this encounter
--- OUTSIDE RECORDS SUMMARY | 2025-07-12 10:46 | XMS_ITS | Encounter Summary ---
Author Organization [facility] Address [address] [place] [address] Care Team Providers Care Strategic Marketing Manager Name Role Phone Magalis Ruiz Unavailable Unavailable Kayleigh Del Cid MD Primary Care Provider [phone] Imtiaz Caraballo MD Unavailable Unavailab Scottie Davenport MD Unavailable Encounter Details Date Type Department Care Team (Late st Contact Info) Description 07/04/2025 Telephone [facility] [address] [place] [address] Kayleigh Del Cid MD [address] [facility] 100 [place] [address] Social History Tobacco Use Types [...] 08/31/2025 1:00 PM EDT Office Visit [address] [phone] Mike Harley, EILEEN [address] [place] [address] 11/16/2025 9:30 AM EST Office Visit [address] [phone] Scottie Solo MD [address] [place] [phone] 11/16/2025 10:30 AM EST Office Visit [address] [phone] Kayleigh Del Cid MD [address] [place] [address] 01/11/2026 8:15 AM EST Office Visit [facility] [address] [place] [address] Dirk Hoffman, OD [address] [address] documented as of this encounter [...] Coronary atherosclerosis of unspecified type of vessel, cocopah or graft documented in this encounter Additional [...] documented as of this encounter Care Teams Strategic Marketing Manager Relationship Specialty Start Date End Date Kayleigh Del Cid MD [address] [place] [address] PCP - General Internal Medicine 04/02/23 Magalis Ruiz Telephone Switchboard Operator Internet Network Specialist 07/25/22 Imtiaz Caraballo MD [address] [place] [address] Family Medicine 04/02/23 Scottie Solo MD [address] [place] [address] Consulting Physician Infectious Diseases 01/09/24 documented as of this encounter
--- OUTSIDE RECORDS SUMMARY | 2025-07-12 10:46 | XMS_ITS | Encounter Summary ---
Author Organization [facility] Address [address] [place] [address] Care Team Providers Care Tractor Crane Engineer Name Role Phone Magalis Ruiz Unavailable Unavailable Kayleigh Del Cid MD Primary Care Provider + [phone] Imtiaz Caraballo MD Unavailable Unavailab Scottie Davenport MD Unavailable Encounter Details Date Type Department Care Team (Late st Contact Info) Description 06/24/2025 Telephone [facility] [address] [place] [address] None, None [address] [place] [address] Social History Tobacco Use Types [...] 9:47 AM EDT ----- Message from Nurse Raymond Matamoros sent at 07/04/2025 9:42 AM EDT [...] of the initial request. Best contact number: [phone] (mobile) Optimal time of day to reach [...] will receive notification of the communication/outcome via [employer]. * Telephone Encounter - Lucero Whyte Jared - 06/24/2025 4:04 PM EDT Clinical Concern/Question Reason for Call: Pt states he needs a small blood pressure cuff. Please call. Best contact number: [phone] (mobile) Optimal time of day to reach [...] will receive notification of the communication/outcome via [employer]. documented in this encounter Plan of Treatment Upcoming Encounters Date Type Department Care Team (Late st Contact Info) Description 08/31/2025 1:00 PM EDT Office Visit [address] [phone] Mike Harley PA [address] [place] [address] 11/16/2025 9:30 AM EST Office Visit [address] [phone] Scottie Solo MD [address] [place] [address] 11/16/2025 10:30 AM EST Office Visit [address] [phone] Kayleigh Del Cid MD [address] [place] [address] 01/11/2026 8:15 AM EST Office Visit [facility] [address] [place] [address] Dirk Hoffman, OD [address] [facility] [address] [place] [address] documented as of this encounter [...] documented as of this encounter Care Teams Tractor Crane Engineer Relationship Specialty Start [place] [address] [place] [address] 100 [place] [address] PCP - General Internal Medicine 04/02/23 Magalis Ruiz Php Magento Developer Repeat Chief 07/25/22 Imtiaz Caraballo MD [address] [facility] 100 [place] [address] Family Medicine 04/02/23 Scottie Solo MD [facility] 100 [place] [address] Consulting Physician Infectious Diseases 01/09/24 documented as of this encounter
--- OUTSIDE RECORDS SUMMARY | 2025-07-12 10:46 | XMS_ITS | Encounter Summary ---
Author Organization [facility] Address [address] [place] [address] Care Team Providers Care Hospitality Internship Name Role Phone Magalis Ruiz Unavailable Unavailable Kayleigh Del Cid MD Primary Care Provider [phone] Imtiaz Caraballo MD Unavailable Unavailab Scottie Davenport [...] 08/31/2025 1:00 PM EDT Office Visit [address] [phone] Mike Harley PA [address] [place] [address] 11/16/2025 9:30 AM EST Office Visit [address] [phone] Scottie Solo MD [address] [place] [address] 11/16/2025 10:30 AM EST Office Visit [address] [phone] Kayleigh Del Cid MD [address] [place] [address] 01/11/2026 8:15 AM EST Office Visit [facility] 110 [place] [address] Dirk Hoffman, OD [address] [address] documented as of this encounter [...] documented as of this encounter Care Teams Hospitality Internship Relationship Specialty Start Date End Date Kayleigh Del Cid MD [address] [place] [address] PCP - General Internal Medicine 04/02/23 Magalis Ruiz Plastic Outfitter Transmission Inspector 07/25/22 Imtiaz Caraballo MD [address] [place] [address] Family Medicine 04/02/23 Scottie Solo MD [address] [place] [address] Consulting Physician Infectious Diseases 01/09/24 documented as of this encounter
--- OUTSIDE RECORDS SUMMARY | 2025-07-12 10:46 | XMS_ITS | Encounter Summary ---
Author Organization [facility] Address [address] [place] [address] Care Team Providers Care Retail Receiving Clerk Name Role Phone Magalis Ruiz Unavailable Unavailable Kayleigh Del Cid MD Primary Care Provider [phone] Imtiaz Caraballo MD Unavailable Unavailab Scottie Davenport [...] Description 08/31/2025 1:00 PM EDT Office Visit [address] [place] [address] [phone] Mike Harley PA [address] [place] [address] 11/16/2025 9:30 AM EST Office Visit [address] [place] [address] [phone] Scottie Solo MD [address] [place] [address] 11/16/2025 10:30 AM EST Office Visit [address] [place] [address] [phone] Kayleigh Del Cid MD [address] [place] [address] 01/11/2026 8:15 AM EST Office Visit [facility] 110 [place] [address] Dirk Hoffman, OD [address] [address] documented as of this [...] documented as of this encounter Care Teams Retail Receiving Clerk Relationship Specialty Start Date End Date Kayleigh Del Cid MD [address] [place] [address] PCP - General Internal Medicine 04/02/23 Magalis Ruiz Supervising Chef Food Photographer 07/25/22 Imtiaz Caraballo MD [address] [place] [address] Family Medicine 04/02/23 Scottie oSlo MD [address] [place] [address] Consulting Physician Infectious Diseases 01/09/24 documented as of this encounter
--- OUTSIDE RECORDS SUMMARY | 2025-07-12 10:46 | XMS_ITS | Encounter Summary ---
Author Organization [facility] Address [address] [place] [address] Care Team Providers Care Business Planning Manager Name Role Phone Magalis Ruiz Unavailable Unavailable Kayleigh Del iCd MD Primary Care Provider [phone] Imtiaz Caraballo MD Unavailable Unavailab Scottie Davenport MD Unavailable Encounter Details Date Type Department Care Team (Late st Contact Info) Description 07/04/2025 Patient Outreach [facility] [address] [place] [address] [place] [address] Social History Tobacco Use Types Packs/Day Years [...] Description 08/31/2025 1:00 PM EDT Office Visit [address] [phone] Mike Harley, PA [address] [place] [phone] 11/16/2025 9:30 AM EST Office Visit [address] [phone] Scottie Solo MD [address] [place] [address] 11/16/2025 10:30 AM EST Office Visit [address] [phone] Kayleigh Del Cid MD [address] [place] [address] 01/11/2026 8:15 AM EST Office Visit [facility] Eye [facility] [address] [place] [address] Dirk Hoffman, OD [address] [place] [address] documented as of this encounter [...] as of this encounter Care Teams Business Planning Manager Relationship Specialty Start Date End Date Kayleigh Del Cid MD [address] [place] [address] [address] [place] PCP - General Internal Medicine 04/02/23 Magalis Ruiz Electric Meter Reader Bump Grader Operator 07/25/22 Imtiaz Caraballo MD [address] [place] [address] [address] [place], [place] Family Medicine 04/02/23 Scottie Solo MD [address] [place] [address] [address] [place] [address] Consulting Physician Infectious Diseases 01/09/24 documented as of this encounter
--- OUTSIDE RECORDS SUMMARY | 2025-07-12 10:46 | XMS_ITS | Encounter Summary ---
Author Organization [facility] Address [address] [place] [address] Care Team Providers Care Supervisor Braiding Name Role Phone Magalis Ruiz Unavailable Unavailable Kayleigh Del Cid MD Primary Care Provider [phone] Imtiaz Caraballo MD Unavailable Unavailab Scottie Davenport MD Unavailable Encounter Details Date Type Department Care Team (Late st Contact Info) Description 06/28/2025 Telephone [facility] [address] [place] [address] Scottie Solo MD [address] [facility] 100 [place] [address] Social History Tobacco Use Types [...] Clinical Concern/Question Reason for Call: Julissa with [facility] primary care is calling to ask for the pt to have asooner apt. States pt has been having many falls and is worried that the pt has had a previous stroke. Please call. Best contact number: Other: [phone] Optimal time of day to reach caller: ANYTIME Additional comments/information from caller: Not Applicable Note: Please do not reply to this message. Follow-up communication and further actions as a result of this message need to be communicated with the patient directly, if the patient is not active onMyChart. If the patient is active on MyChart, they will receive notification of the communication/outcome via [employer]. documented in this encounter Plan of Treatment Upcoming Encounters Date Type Department Care Team (Late st Contact Info) Description 08/31/2025 1:00 PM EDT Office Visit [address] [phone] [place] [address] [place] [address] 11/16/2025 9:30 AM EST Office Visit [address] [phone] Scottie Solo MD [address] [place] [address] 11/16/2025 10:30 AM EST Office Visit [facility] [address] [facility] [place] [address] Kayleigh Del Cid MD [address] [facility] [address] [place] [address] 01/11/2026 8:15 AM EST Office Visit [facility] [place] [facility] [address] [place] [address] Dirk Hoffman, OD [address] [place] [address] documented as of this encounter [...] as of this encounter Care Teams Supervisor Braiding Relationship Specialty Start Date End Date Kayleigh Del Cid MD [address] [place] [address] 100 [place] [address] PCP - General Internal Medicine 04/02/23 Magalis Ruiz Chemical Processor Research Environmental Scientist 07/25/22 Imtiaz Caraballo MD [address] [place] [phone] Family Medicine 04/02/23 Scottie Solo MD [address] [place] [address] 100 [place] [address] Consulting Physician Infectious Diseases 01/09/24 documented as of this encounter
--- OUTSIDE RECORDS SUMMARY | 2025-07-12 10:46 | XMS_ITS | Encounter Summary ---
Author Organization [facility] Address [address] [place] [address] Care Team Providers Care Reactor Kettle Operator Name Role Phone Magalis Ruiz Unavailable Unavailable Kayleigh Del Cid MD Primary Care Provider [phone] Imtiaz Caraballo MD Unavailable Unavailab Scottie Davenport [...] 08/31/2025 1:00 PM EDT Office Visit [address] [phone] [place] [address] [place] [address] 100 [place] [address] 11/16/2025 9:30 AM EST Office Visit [address] [phone] Scottie Solo MD [address] [place] [address] 11/16/2025 10:30 AM EST Office Visit [address] [phone] Kayleigh Del Cid MD [address] [place] [address] 01/11/2026 8:15 AM EST Office Visit [facility] 110 [place] [address] Dirk Hoffman, OD [address] [address] documented as of this encounter [...] documented as of this encounter Care Teams Reactor Kettle Operator Relationship Specialty Start Date End Date Kayleigh Del Cid MD [address] [place] [address] PCP - General Internal Medicine 04/02/23 Magalis Ruiz Vp Generator Operator Straight Bevel Gear 07/25/22 Imtiaz Caraballo MD [address] [place] [phone] Family Medicine 04/02/23 Scottie Sool MD [address] [place] [phone] Consulting Physician Infectious Diseases 01/09/24 documented as of this encounter
--- OUTSIDE RECORDS SUMMARY | 2025-07-12 10:46 | XMS_ITS | Encounter Summary ---
Author Organization [facility] Address [address] [place] [address] Care Team Providers Care Registrar Museum Name Role Phone Magalis Ruiz Unavailable Unavailable Kayleigh Del Cid MD Primary Care Provider + [phone] Imtiaz Caraballo MD Unavailable Unavailab Scottie Davenport MD Unavailable Encounter Details Date Type Department Care Team (Late st Contact Info) Description 07/01/2025 Telephone [facility] [address] [place] [address] None, None [address] [place] [address] Social History Tobacco Use Types [...] gas card for today Best contact number: [phone] (mobile) Optimal time of day to reach caller: ANYTIME Additional comments/information from caller: None Note: Please do not reply to this message. Follow-up communication and further actions as a result of this message need to be communicated with the patient directly, if the patient is not active onMyChart. If the patient is active on MyChart, they will receive notification of the communication/outcome via ERNhart. documented in this encounter Plan of Treatment Upcoming Encounters Date Type Department Care Team (Late st Contact Info) Description 08/31/2025 1:00 PM EDT Office Visit [address] [phone] [place] [address] [place] [address] 11/16/2025 9:30 AM EST Office Visit [address] [phone] Scottie Solo MD [address] [place] [address] 11/16/2025 10:30 AM EST Office Visit [facility] [address] [facility] [place] [address] Kayleigh Del Cid MD [address] [facility] [address] [place] [address] 01/11/2026 8:15 AM EST Office Visit [facility] [place] [facility] [address] [place] [address] Dirk Hoffman, OD [address] [place] [address] documented as of this encounter [...] documented as of this encounter Care Teams Registrar Museum Relationship Specialty Start Date End Date Kayleigh Del Cid MD [address] [place] [address] 100 [place] [address] PCP - General Internal Medicine 04/02/23 Magalis Ruiz Cloud Developer Miscellaneous Machine Operator 07/25/22 Imtiaz Caraballo MD [address] [place] [phone] Family Medicine 04/02/23 Scottie Solo MD [address] [place] [phone] Consulting Physician Infectious Diseases 01/09/24 documented as of this encounter
--- OUTSIDE RECORDS SUMMARY | 2025-07-12 10:46 | XMS_ITS | Encounter Summary ---
Author Organization [facility] Address [address] [place] [address] Care Team Providers Care Plant Culture Manager Name Role Phone Magalis Ruiz Unavailable Unavailable Kayleigh Del Cid MD Primary Care Provider [phone] Imtiaz Caraballo MD Unavailable Unavailab Scottie Davenport MD Unavailable Reason for Visit * Reason Comments Case Management Transportation odalys herron (viaForensics) Encounter Details Date Type Department Care Team (Late st Contact Info) Description 06/06/2025 Patient Outreach [facility] [address] [place] [address] Adrien Lopez, ANODIZING LINE OPERATOR Case Management (Transportation assistance ([employer])) Social History Tobacco Use Types Packs/Day Years [...] return trip home from OP appointment at [facility]. MCM reviewed patient's chart to determine Part B eligibility and assessed patient's financial needs, determining transportation assistance would reduce barrier to health care. MCM provided patient with $25 gas card (igobubble) and completed paperwork with patient. No additional needs were identified during visit. MCM documented communication with patient in [employer]NOK and [employer]Place. MCM on standby for further assistance as needed. Adrien Lopez LCSW documented in this encounter Plan of Treatment Upcoming Encounters Date Type Department Care Team (Late st Contact Info) Description 08/31/2025 1:00 PM EDT Office Visit [address] [phone] Mike Harley PA [address] [place] [address] 11/16/2025 9:30 AM EST Office Visit [address] [phone] Scottie Solo MD [address] [place] [address] 11/16/2025 10:30 AM EST Office Visit [address] [phone] Kayleigh Del Cid MD [address] [facility] [address] [place] [address] 01/11/2026 8:15 AM EST Office Visit [facility] [address] [place] [address] Dirk Hoffman, OD [address] [place] [address] documented as of this encounter [...] documented as of this encounter Care Teams Plant Culture Manager Relationship Specialty Start Date End Date Kayleigh Del Cid MD [address] [facility] [address] [place] [address] PCP - General Internal Medicine 04/02/23 Magalis Ruiz Asbestos Worker Web Support Engineer 07/25/22 Imtiaz Caraballo MD [address] [place] [address] Family Medicine 04/02/23 Scottie Solo MD [address] [place] [phone] Consulting Physician Infectious Diseases 01/09/24 documented as of this encounter
--- OUTSIDE RECORDS SUMMARY | 2025-07-12 10:46 | XMS_ITS | Encounter Summary ---
Author Organization [facility] Address [address] [place] [address] Care Team Providers Care Director Of Instruction Name Role Phone Magalis Ruiz Unavailable Unavailable Kayleigh Del Cid MD Primary Care Provider [phone] Imtiaz Caraballo MD Unavailable Unavailab Scottie Davenport MD Unavailable Reason for Visit * Reason Comments Med Refill Encounter Details Date Type Department Care Team (Late st Contact Info) Description 03/02/[address] [address] Scottie Solo MD [address] [place] [address] 100 [place] [address] Benign prostatic hyperplasia without lower [...] Description 08/31/2025 1:00 PM EDT Office Visit [place] [phone] [place] [address] [place] [address] 11/16/2025 9:30 AM EST Office Visit [address] [address] Scottie Solo MD [address] [place] [address] 11/16/2025 10:30 AM EST Office Visit [address] [phone] Kayleigh Del Cid MD [address] [place] [address] 01/11/2026 8:15 AM EST Office Visit [facility] [address] [place] [address] Dirk Hoffman, OD [address] [address] documented as of this encounter [...] of this encounter Care Teams Director Of Instruction Relationship Specialty Start Date End Date Kayleigh Del Cid MD [address] [place] [address] PCP - General Internal Medicine 04/02/23 Magalis Ruiz Behavioral Health Specialist Fisher Trap 07/25/22 Imtiaz Caraballo MD [address] [place] [address] Family Medicine 04/02/23 Scottie Solo MD [address] [place] [address] Consulting Physician Infectious Diseases 01/09/24 documented as of this encounter
--- OUTSIDE RECORDS SUMMARY | 2025-07-12 10:47 | XMS_ITS | Encounter Summary ---
Author Organization [facility] Address [address] [place] [address] Care Team Providers Care Sales Professional Name Role Phone Magalis Ruiz Unavailable Unavailable Kayleigh Del Cid MD Primary Care Provider [phone] Imtiaz Caraballo MD Unavailable Unavailab Scottie Davenport MD Unavailable Reason for Visit * Reason Comments Med Refill Encounter Details Date Type Department Care Team (Late st Contact Info) Description 05/26/[address] [phone] Scottie Solo MD [address] [place] [address] [address] [place] [address] Stage 3 chronic kidney disease, [...] Description 08/31/2025 1:00 PM EDT Office Visit [address] [address] [place] [address] [place] [address] [address] [place] [address] 11/16/2025 9:30 AM EST Office Visit [address] [address] Scottie Solo MD [address] [place] [address] [address] [place] [address] 11/16/2025 10:30 AM EST Office Visit [address] [phone] Kayleigh Del Cid MD [address] [place] [phone] 01/11/2026 8:15 AM EST Office Visit [facility] [address] [place] [address] Dirk Hoffman, OD [address] [address] documented as of this encounter [...] documented as of this encounter Care Teams Sales Professional Relationship Specialty Start Date End Date Kayleigh Del Cid MD [address] [place] [address] PCP - General Internal Medicine 04/02/23 Magalis Ruiz Tractor Drill Operator Biblical Languages Professor 07/25/22 Imtiaz Caraballo MD [address] [place] [address] Family Medicine 04/02/23 Scottie Solo MD [address] [place] [address] Consulting Physician Infectious Diseases 01/09/24 documented as of this encounter
--- OUTSIDE RECORDS SUMMARY | 2025-07-12 10:47 | XMS_ITS | Encounter Summary ---
Author Organization [facility] Address [address] [place] [address] Care Team Providers Care Oil Speculator Name Role Phone Amanuel Shashankjami Jamari Unavailable Unavailable Kayleigh Del Cid MD Primary Care Provider + [phone] Magalis Ruiz Unavailable Unavailable Kayleigh Del Cid MD Primary Care Provider + [phone] Imtiaz Caraballo MD Unavailable Unavailab Scottie Davenport MD Unavailable Reason for Visit * Reason Comments Med Refill Encounter Details Date Type Department Care Team (Late st Contact Info) Description 09/03/2021 Refill [facility] [address] [place] [address] Kayleigh Del Cid MD [address] [facility] [address] [address] [place] [address] Social History Tobacco Use Types [...] Description 08/31/2025 1:00 PM EDT Office Visit [address] [address] [place] [address] [place] [phone] 11/16/2025 9:30 AM EST Office Visit [address] [address] Scottie Solo MD [address] [place] [phone] 11/16/2025 10:30 AM EST Office Visit [address] [address] Kayleigh Del Cid MD [address] [place] [phone] 01/11/2026 8:15 AM EST Office Visit [facility] [place] [facility] [address] [place] [address] Dirk Hoffman, OD [address] [address] documented as of this encounter [...] documented as of this encounter Care Teams Oil Speculator Relationship Specialty [place] [address] [place] [address] [address] [place] [phone] PCP - General 04/13/21 04/01/23 Kayleigh Del Cid MD [address] [place] [phone] PCP - General Internal Medicine 04/02/23 [place] [address] 06/01/10 07/25/22 Magalis Ruiz Shading Painter Rn Care Manager 07/25/22 Imtiaz Caraballo MD Family Medicine 04/02/23 Scottie Solo MD [address] [place] [address] [address] [place] [phone] Consulting Physician Infectious Diseases 01/09/24 documented as of this encounter
--- OUTSIDE RECORDS SUMMARY | 2025-07-12 10:47 | XMS_ITS | Encounter Summary ---
Author Organization [facility] Address [address] [place] [address] Care Team Providers Care Manufacturing Helper Name Role Phone Magalis Ruiz Unavailable Unavailable Kayleigh Del Cid MD Primary Care Provider [phone] Imtiaz Caraballo MD Unavailable Unavailab Scottie Davenport MD Unavailable Reason for Visit * Reason Comments Med Refill Encounter Details Date Type Department Care Team (Late st Contact Info) Description 05/24/[address] [address] Kayleigh Del Cid MD [address] [place] [address] [address] [place] [address] Depression, unspecified depression type Social [...] Description 08/31/2025 1:00 PM EDT Office Visit [place] [phone] [place] [address] [place] [phone] 11/16/2025 9:30 AM EST Office Visit [address] [address] Scottie Solo MD [address] [place] [phone] 11/16/2025 10:30 AM EST Office Visit [address] [address] Kayleigh Del Cid MD [address] [place] [phone] 01/11/2026 8:15 AM EST Office Visit [facility] [address] [place] [address] Dirk Hoffman, OD [address] [address] documented as of this encounter [...] documented as of this encounter Care Teams Manufacturing Helper Relationship Specialty Start Date End Date Kayleigh Del Cid MD [address] [place] [phone] PCP - General Internal Medicine 04/02/23 Magalis Ruiz Auto Research Engineer Circulation Director 07/25/22 Imtiaz Caraballo MD [address] [place] [phone] Family Medicine 04/02/23 Scottie Solo MD [address] [place] [phone] Consulting Physician Infectious Diseases 01/09/24 documented as of this encounter
--- OUTSIDE RECORDS SUMMARY | 2025-07-12 10:47 | XMS_ITS | Clinical Summary ---
Author Organization [facility] Address [address] 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 Name Role Phone Magalis Ruiz Unavailable Unavailable Kayleigh Del Cid MD Primary Care Provider [phone] Imtiaz Caraballo MD Unavailable Unavailab Scottie Davenport MD Unavailable Allergies Active Allergy Reactions Criticality Noted Date Comments Morphine Other - please docum ent in the comment field,Nausea High 06/01/2010 Medications loperamide (Imodium) 2 MG capsule 2021 Active HYDROcodone-acetaminop hen (Unadilla) 7.5-325 MG tablet Take 1 tablet (7.5 [...] FORM DOLUTEGRAVIR 90 tablet 3 2024 Active spironolactone-hydroCH LOROthiazide (Aldactazide) 25-25 MG [...] bilateral knees 350 g 2 2024 Active famotidine (Pepcid) 20 MG tabletIndications:Fredo roesophageal reflux disease without esophagitis TAKE 1 TABLET BY MOUTH TWO TIMES A DAY NEEDED FOR HEARTBURN 180 tablet 2024 Active metoprolol succinate XL (Toprol-XL) 50 MG 24 hr tabletIndications:Adeola riosclerosis of coronary artery Take 1 tablet (50 mg) by mouth 1 (one) time each day. 90 tablet 3 06/13 Discontinued famotidine (Pepcid) 20 MG tabletIndications:Fredo roesophageal reflux disease without esophagitis Take 1 tablet (20 mg) by mouth 2 (two) times a day as needed for heartburn. 60 tablet 5 07/12 Discontinued Active Problems Problem Noted Date Diagnosed Date Back pain with radiation 04/01/2025 Backache 04/01/2025 Chronic kidney disease-mineral and bone disorder 02/21/2025 Anemia due to stage 3b chronic kidney disease Dyspnea 12/18/2024 Edema of right lower extremity 12/18/2024 Falls frequently 12/18/2024 Assessment & Plan (07/11/2025 2:23 PM EDT): Advised to use cane at all times He is also amenable to PT/OT referrals for his knee pain - ordered today Assessment & Plan (05/25/2025 4:26 PM EDT): [...] -MOCA 08/24 , repeat today improved to -he did not bring advanced directives today [...] Meningococcal MCV4P 09/24/2017, 02/04/2018 Moderna COVID-19 Vaccine (Stationary Steam Engineer) 12+ years 01/25/2021, 02/22/2021, 07/26/2021 Moderna COVID-19 [...] Meningococcal MCV4P 09/24/2017, 02/04/2018 Moderna COVID-19 Vaccine (Stationary Steam Engineer) 12+ years 01/25/2021, 02/22/2021, 07/26/2021 Moderna COVID-19 [...] Meningococcal MCV4P 09/24/2017, 02/04/2018 Moderna COVID-19 Vaccine (Stationary Steam Engineer) 12+ years 01/25/2021, 02/22/2021, 07/26/2021 Moderna COVID-19 [...] Value Date HGBA1C 5.5 12/30/2022 Referrals Dentist: [email or web address] Ophthalmology: Assessment & Plan (02/16/2024 8:43 PM [...] Meningococcal MCV4P 09/24/2017, 02/04/2018 Moderna COVID-19 Vaccine (Stationary Steam Engineer) 12+ years 01/25/2021, 02/22/2021, 07/26/2021 Moderna COVID-19 [...] Meningococcal MCV4P 09/24/2017, 02/04/2018 Moderna COVID-19 Vaccine (Stationary Steam Engineer) 12+ 01/25/2021, 02/22/2021, 07/26/2021 PPD Skin Test [...] next labs ? AAA: screen negative in 09/18 Labs [...] LAD stent placed in Oct 2019 at [facility] Assessment & Plan (05/25/2025 4:24 PM EDT): [...] & Plan (06/01/2021 12:56 PM EDT): -dx 2009 -on abacavir, lamivudine, tivicay Hyperlipidemia 02/15/2016 Assessment [...] 12:53 PM EDT): Well controlled Continue nortriptyline qhs Chronic kidney disease (CKD), stage III (moderat [...] Diagnosed Date Resolved Date Stented coronary artery 09/02/2024 06/2 03/2025 Coronary arteriosclerosis 09/01/2024 MARGARET (acute kidney injury) [...] 06/01/2021 Syphilis 02/14/2016 11/22/2024 Alcohol abuse, episodic 07/21/2015 07/01/2021 Encounters Date Type Department Care Team Description 07/12/[address] [phone] Scottie Solo MD Gastroesophageal reflux disease without esophagitis 07/07/2025 Patient Outreach [address] [phone] Xiomara Sy 07/06/2025 Telephone [facility]ph[facility] Bone [facility] Mineral Metabolism [address] [facility], [address] [place] [address] Israel Castro MD HCN Clinical Concern/Question; Difficulty Urinating 07/04/2025 Patient Outreach [facility] [address] [place] [phone] Xiomara Sy 07/04/[address] [phone] Kayleigh Del Cid MD 07/01/2025 4:00 PM EDT Office Visit [address] [phone] Mike Harley PA Falls frequently (Primary Dx); Arthritis 07/01/2025 Travel 07/01/[address] [phone] None, None 06/28/[address] [phone] Scottie Solo MD 06/27/2025 Orders Only [address] [phone] Kayleigh Del Cid MD Primary hypertension (Primary Dx) 06/24/[address] [phone] None, None 06/13/2025 [facility] [place] [address] [place] [address] Jose Doty MD Arteriosclerosis of coronary artery 06/07/2025 Results Follow-Up [address] [phone] Kayleigh Del Cid MD 06/06/2025 10:00 AM EDT Office Visit [address] [phone] Scottie Solo MD Chronic pain of right knee (Primary Dx); HIV disease (CMS/HCC) 06/06/2025 Patient Outreach [address] [phone] Adrien Lopez, MEMBER OF THE [employer] Case Management (Transportation assistance ([employer])) 06/06/2025 Travel 05/23/2025 Travel 05/16/2025 4:30 PM EDT Immunization [facility] [address] [place] [phone] Need for Tdap vaccination (Primary Dx) 05/16/2025 3:30 PM EDT Office Visit [address] [phone] Kayleigh Del Cid MD Coronary arteriosclerosis (Primary Dx); Pure hypercholesterolemia; Depression, unspecified depression type; Healthcare maintenance; Gastroesophageal reflux disease without esophagitis; Dry skin; Stage 3b chronic kidney disease ([facility]); Benign prostatic hyperplasia with nocturia; Bilateral primary osteoarthritis of knee; Memory loss; Neuropathy; Recurrent falls 05/16/2025 Patient Outreach [address] [phone] Noman Diallo 05/16/2025 Travel 05/09/2025 12:58 PM EDT - 05/09/2025 8:27 PM EDT Emergency [facility] [address] [place] [address] Jesus Archer MD Dahlgren, Amy E, MD Fall, initial encounter (Primary Dx) Discharge Disposition: Home or Self Care 05/09/2025 Travel 05/05/[address] [phone] Scottie Solo MD HIV disease ([facility]) from Last 3 Months Immunizations Immunization Administration [...] PPD Skin Test (TB Skin Test) 01/02/2012 [employer] Covid-19 Vaccine 12y+ , Wilmer Protein, PF, [...] Description 08/31/2025 1:00 PM EDT Office Visit [address] [phone] Mike Harley PA [address] [place] [address] 11/16/2025 9:30 AM EST Office Visit [address] [phone] Scottie Solo MD [address] [place] [phone] 11/16/2025 10:30 AM EST Office Visit [place] [id number] [facility] [place] [address] Kayleigh Del Cid MD [address] [facility] [address] [place] [address] 01/11/2026 8:15 AM EST Office Visit [facility] [address] [place] [address] Dirk Hoffman, OD [address] [place] [address] Health Maintenance Due Date Last Done Comments Dental Prophylaxis 1950 Dental X-Ray: Bitewings 1950 [facility]-Medicare Annual Wellness (AWV) 1950 [facility]-/Child/Adol SDOH Screenings 1950 [facility]- SDOH Screenings 1969 [facility]-Adult SDOH Screenings [facility] CT Colonography 1996 FIT-DNA 1996 FIT 1996 FOBT 1996 Sigmoidoscopy 1996 [facility]-Hepatitis A Vaccines (4 of 4 - Hep A Twinrix risk 4-dose series) 10/18/2011 02/28/2011, 11/19/2010, 10/18/2010 [facility]-Abdominal Aortic Aneurysm (AAA) Screening 2016 Dental Oral Exam 08/08/2024 02/05/2024 [id number] Vaccine (7 - Moderna risk 2023- season) [...] Screening Completed 05/09/2025, [facility]-Obesity Intervention Completed 025, 06/06/2025, 05/16/2025, Additional history exists HPV Vaccines Aged Out [...] Transportation On track(2024 11:44 AM EDT) No Ccee Castro Note: Gas cards for travel to clinic Procedures Procedure Name Priority Date/Time Associated Diagnosis Comments T. PALLIDUM (SYPHILIS) ANTIBODIES (REFLEX ONLY) Routine 06/06/2025 10:44 AM EDT HIV disease (CMS/HCC) RPR TITER Routine 06/06/2025 10:44 AM EDT HIV disease (CMS/HCC) LIPID PROFILE, PLASMA Routine 06/06/2025 10:44 AM EDT Pure hypercholesterolemia Coronary arteriosclerosis CBC WITH AUTO DIFFERENTIAL Routine 06/06/2025 10:44 AM EDT HIV disease (CMS/HCC) LYMPHOCYTE SUBSET ENUMERATION, TBNK Routine 06/06/2025 10:44 AM EDT HIV disease (CMS/HCC) COMPREHENSIVE METABOLIC PANEL, PLASMA Routine 06/06/2025 10:44 AM EDT HIV disease (CMS/HCC) HUMAN IMMUNODEFICIENCY VIRUS (HIV-1) QUANTITATIVE PCR Routine [...] Reactive( A) Nonreactive 06/07/2025 4:18 AM EDT [facility] Blood Venous blood specimen / Unknown Venipuncture / Unknown 06/06/2025 10:44 AM EDT 06/06/2025 10:48 AM EDT us Scottie Solo MD LAB BLOOD ORDERABLES Final Resul t [facility] [address] [place] [address] * (ABNORMAL) RPR Titer (06/06/2025 10:44 AM EDT) RPR Titer Pos 1:1(A) <1:1 06/07/2025 3:35 AM EDT [facility] Blood Venous blood specimen / Unknown Venipuncture / Unknown 06/06/2025 10:44 AM EDT 06/06/2025 10:48 AM EDT us Scottie Solo MD LAB BLOOD ORDERABLES Final Resul t Performing Organization Address City/[facility] Co de Phone Number [facility] [address] [place] [address] * (ABNORMAL) Lymphocyte Subset Enumeration (TBNK) (06/06/2025 10:44 AM EDT) Percent CD3 76.4 57.5 - 83.1 % 06/06/2025 7:22 PM EDT [facility] Absolute CD3 1,991 860 - 2,670 cells/uL 06/06/2025 7:22 PM EDT [facility] Percent CD4 32.2 31.5 - 62.4 % 06/06/2025 7:22 PM EDT [facility] Absolute CD4 839 490 - 1,730 cells/uL 06/06/2025 7:22 PM EDT [facility] Percent CD8 41.6(H) 9.5 - 38.3 % 06/06/2025 7:22 PM EDT [facility] Absolute CD8 1,083(H) 160 - 1,070 cells/uL 06/06/2025 7:22 PM EDT [facility] Percent CD19 7.3 6.0 - 24.2 % 06/06/2025 7:22 PM EDT [facility] Absolute CD19 189 73 - 562 cells/uL 06/06/2025 7:22 PM EDT [facility] Percent CD16+CD56 16.0 5.2 - 30.4 % 06/06/2025 7:22 PM EDT [facility] Absolute CD16+CD56 418 110 - 680 cells/uL 06/06/2025 7:22 PM EDT [facility] CD4:CD8 Ratio 0.78 06/06/2025 7:22 PM EDT [facility] Blood Venous blood specimen / Unknown Venipuncture / Unknown 06/06/2025 10:44 AM EDT 06/06/2025 10:48 AM EDT us Scottie Solo MD LAB FLOW CYTOMETRY ORDERABLES Fi nal Result [facility] [address] [place] [address] * Human Immunodeficiency Virus (HIV-1) Quantitative PCR (06/06/2025 10:44 AM EDT) Human Immunodeficiency Virus (HIV-1) Quant Interpretation Not Detected Not Detected 06/07/2025 4:21 AM EDT [facility] Blood Venous blood specimen / Unknown Venipuncture / Unknown 06/06/2025 10:44 AM EDT 06/06/2025 10:48 AM EDT Narrative [facility] - 06/07/2025 4:21 AM EDT [...] ORDERABLES Final Resul t Performing Organization Address City/[facility]/ZIP Co de Phone Number [facility] [address] [place] [address] * (ABNORMAL) RPR With Reflex to Titer (Those With Known Syphilis) (06/06/2025 10:44 AM EDT) [facility] Rapid Plasma Reagin Reactive( A) Non Reactive 06/07/2025 2:21 AM EDT [facility] Blood Venous blood specimen / Unknown Venipuncture / Unknown 06/06/2025 10:44 AM EDT 06/06/2025 10:48 AM EDT cSottie Solo MD LAB BLOOD ORDERABLES Final Resul t Performing Organization Address [facility]/ZIP Co de Phone Number [facility] [address] [place] [address] * (ABNORMAL) CBC and Differential (06/06/2025 10:44 AM EDT) Only the most recent of2 resultswithin the time period is included. [facility] WBC Count 7.74 3.70 - 10.30 10*3/uL LAB HEMATOLOGY METHOD 06/06/2025 12:29 PM EDT [facility] RBC Count 3.42(L) 4.60 - 6.10 10*6/uL LAB HEMATOLOGY METHOD 06/06/2025 12:29 PM EDT [facility] HGB 11.0(L) 13.7 - 17.5 g/dL LAB HEMATOLOGY METHOD 06/06/2025 12:29 PM EDT [facility] HCT 33.2(L) 40.0 - 51.0 % LAB HEMATOLOGY METHOD 06/06/2025 12:29 PM EDT [facility] Platelet Count 165 155 - 369 10*3/uL LAB HEMATOLOGY METHOD 06/06/2025 12:29 PM EDT [facility] MCV 97 79 - 98 fL LAB HEMATOLOGY METHOD 06/06/2025 12:29 PM EDT [facility] MCH 32.2(H) 26.0 - 32.0 pg LAB HEMATOLOGY METHOD 06/06/2025 12:29 PM EDT [facility] MCHC 33.1 30.7 - 35.5 g/dL LAB HEMATOLOGY METHOD 06/06/2025 12:29 PM EDT [facility] RDW 14.0 11.5 - 14.5 % LAB HEMATOLOGY METHOD 06/06/2025 12:29 PM EDT [facility] MPV 10.1 8.8 - 12.5 fL LAB HEMATOLOGY METHOD 06/06/2025 12:29 PM EDT [facility] nRBC 0.0 <=0.0 per 100 WBCs LAB HEMATOLOGY METHOD 06/06/2025 12:29 PM EDT [facility] Differential Type Automated LAB HEMATOLOGY METHOD 06/06/2025 12:29 PM EDT [facility] Neutrophils % 57 % LAB HEMATOLOGY METHOD 06/06/2025 12:29 PM EDT [facility] Lymphocytes % 31 % LAB HEMATOLOGY METHOD 06/06/2025 12:29 PM EDT [facility] Monocytes % 7 % LAB HEMATOLOGY METHOD 06/06/2025 12:29 PM EDT [facility] Eosinophils % 3 % LAB HEMATOLOGY METHOD 06/06/2025 12:29 PM EDT [facility] Basophils % 1 % LAB HEMATOLOGY METHOD 06/06/2025 12:29 PM EDT [facility] Immature Granulocytes % 1 % LAB HEMATOLOGY METHOD 06/06/2025 12:29 PM EDT [facility] Neutrophils Absolute 4.45 1.60 - 6.10 10*3/uL LAB HEMATOLOGY METHOD 06/06/2025 12:29 PM EDT [facility] Lymphocytes Absolute 2.43 1.20 - 3.90 10*3/uL LAB HEMATOLOGY METHOD 06/06/2025 12:29 PM EDT [facility] Monocytes Absolute 0.53 0.30 - 0.90 10*3/uL LAB HEMATOLOGY METHOD 06/06/2025 12:29 PM EDT [facility] Eosinophils Absolute 0.23 0.00 - 0.50 10*3/uL LAB HEMATOLOGY METHOD 06/06/2025 12:29 PM EDT [facility] Basophils Absolute 0.05 0.00 - 0.10 10*3/uL LAB HEMATOLOGY METHOD 06/06/2025 12:29 PM EDT [facility] Immature Granulocytes Absolute 0.05 0.00 - 0.06 10*3/uL LAB HEMATOLOGY METHOD 06/06/2025 12:29 PM EDT [facility] Blood Venous blood specimen / Unknown Venipuncture / Unknown 06/06/2025 10:44 AM EDT 06/06/2025 10:48 AM EDT Narrative [facility] - 06/06/2025 12:29 PM EDT Therapeutic decision making should be based on absolute values, rather than percentages. us Scottie Solo MD LAB BLOOD ORDERABLES Final Resul t [facility] [address] [place] [address] * Lipid Profile, Plasma (06/06/2025 10:44 AM EDT) Cholesterol, Plasma 86 <200 mg/dL 06/06/2025 12:33 PM EDT [facility] Comment: Cholesterol Reference Range (age >17 years): Desirable <200 mg/dL Borderline 200 to 239 mg/dL Undesirable >239 mg/dL HDL 53 >=40 mg/dL 06/06/2025 12:33 PM EDT [facility] Comment: HDL Cholesterol Reference Ranges (age >17 years): Female, acceptable > or = 50 mg/dL Male, acceptable > or = 40 mg/dL Triglycerides, Plasma 91 <150 mg/dL 06/06/2025 12:33 PM EDT [facility] Comment: Triglyceride Reference Range (age >17 years): Desirable: <150 mg/dL Borderline high: 150 to 199 mg/dL High: 200 to 499 mg/dL Very high: >499 mg/dL Increased risk of pancreatitis: >1000 mg/dL Cholesterol/HDL Ratio 2 06/06/2025 12:33 PM EDT [facility] LDL, Calculated 15 <100 mg/dL 12:33 PM EDT [facility] Comment: LDL Cholesterol Reference Range [...] 12 hours? Yes 06/06/2025 12:33 PM EDT [facility] Blood Venous blood specimen / Unknown Venipuncture / Unknown 06/06/2025 10:44 AM EDT 06/06/2025 10:48 AM EDT us Kayleigh Del Cid MD LAB BLOOD ORDERABLES Andreea damico Result [facility] [address] [place] [address] * (ABNORMAL) Comprehensive Metabolic Panel, Plasma (06/06/2025 10:44 AM EDT) Only the most recent of2 resultswithin the time period is included. Glucose, Plasma 96 74 - 99 mg/dL 06/06/2025 12:33 PM EDT [facility] BUN, Plasma 23 8 - 23 mg/dL 06/06/2025 12:33 PM EDT [facility] Creatinine, Plasma 2.00(H) 0.70 - 1.20 mg/dL 06/06/2025 12:33 PM EDT [facility] BUN/Creatinine Ratio 12 06/06/2025 12:33 PM EDT [facility] Sodium, Plasma 139 136 - 145 mmol/L 06/06/2025 12:33 PM EDT [facility] Potassium, Plasma 4.9 3.6 - 4.9 mmol/L 06/06/2025 12:33 PM EDT [facility] Chloride, Plasma 101 97 - 107 mmol/L 06/06/2025 12:33 PM EDT [facility] CO2, Plasma 26 22 - 29 mmol/L 06/06/2025 12:33 PM EDT [facility] Anion Gap 12 6 - 16 mmol/L 06/06/2025 12:33 PM EDT [facility] Total Calcium, Plasma 9.4 8.9 - 10.2 mg/dL 06/06/2025 12:33 PM EDT [facility] Total Protein 7.4 6.3 - 7.9 g/dL 06/06/2025 12:33 PM EDT [facility] Albumin, Plasma 4.4 3.5 - 5.2 g/dL 06/06/2025 12:33 PM EDT [facility] AST, Plasma 37 10 - 50 U/L 06/06/2025 12:33 PM EDT [facility] ALT, Plasma 50 10 - 50 U/L 06/06/2025 12:33 PM EDT [facility] Alkaline Phosphatase, Plasma 101 40 - 115 U/L 06/06/2025 12:33 PM EDT [facility] Total Bilirubin, Plasma 0.3 0.2 - 1.1 mg/dL 06/06/2025 12:33 PM EDT [facility] eGFRcr 34.6 mL/min/1.7 3m*2 06/06/2025 12:33 PM EDT [facility] Comment:Reported eGFRcr in m L/min/1.73m2 is based the CKD-EPI 2020 equation that does not use a race coefficient. Blood Venous blood specimen / Unknown Venipuncture / Unknown 06/06/2025 10:44 AM EDT 06/06/2025 10:48 AM EDT us Scottie Solo MD LAB BLOOD ORDERABLES Final Resul t [facility] [address] [place] [address] * Vitamin D 25 Hydroxy (05/23/2025 11:29 AM EDT) Vitamin D 25 Hydroxy 58.5 20.0 - 80.0 ng/mL 05/23/2025 4:49 PM EDT [facility] Blood Venous blood specimen / Unknown Venipuncture / Unknown 05/23/2025 11:29 AM EDT 05/23/2025 11:30 AM EDT Narrative [facility] - 05/23/2025 4:49 PM EDT Testing performed on [employer], standardized against NIST SRM 2972. When testing [...] MD LAB BLOOD ORDERABLES Final Re sult [facility] [address] [place] [address] * (ABNORMAL) CBC W/O Differential (05/23/2025 11:29 AM EDT) WBC Count 7.51 3.70 - 10.30 10*3/uL LAB HEMATOLOGY METHOD 05/23/2025 2:[address] [facility] RBC Count 3.39(L) 4.60 - 6.10 10*6/uL LAB HEMATOLOGY METHOD 05/23/2025 2:[address] [facility] HGB 10.9(L) 13.7 - 17.5 g/dL LAB HEMATOLOGY METHOD 05/23/2025 2:[address] [facility] HCT 33.3(L) 40.0 - 51.0 % LAB HEMATOLOGY METHOD 05/23/2025 2:[address] [facility] Platelet Count 156 155 - 369 10*3/uL LAB HEMATOLOGY METHOD 05/23/2025 2:[address] [facility] MCV 98 79 - 98 fL LAB HEMATOLOGY METHOD 05/23/2025 2:[address] [facility] MCH 32.2(H) 26.0 - 32.0 pg LAB HEMATOLOGY METHOD 05/23/2025 2:[address] [facility] MCHC 32.7 30.7 - 35.5 g/dL LAB HEMATOLOGY METHOD 05/23/2025 2:[address] [facility] RDW 14.9(H) 11.5 - 14.5 % LAB HEMATOLOGY METHOD 05/23/2025 2:[address] [facility] MPV 10.2 8.8 - 12.5 fL LAB HEMATOLOGY METHOD 05/23/2025 2:[address] [facility] nRBC 0.3(H) <=0.0 per 100 WBCs LAB HEMATOLOGY METHOD 05/23/2025 2:[address] [facility] Blood Venous blood specimen / Unknown Venipuncture / Unknown 05/23/2025 11:29 AM EDT 05/23/2025 11:30 AM EDT Israel Castro MD LAB BLOOD ORDERABLES Final Re sult Performing Organization Address [facility] de Phone Number [facility] [address] [place] [id number] * (ABNORMAL) PTH Intact Total (05/23/2025 11:29 AM EDT) PTH Intact Total 83(H) 9 - 77 pg/mL 05/23/2025 3:56 PM EDT [facility] Blood Venous blood specimen / Unknown Venipuncture / Unknown 05/23/2025 11:29 AM EDT 05/23/2025 11:30 AM EDT Narrative [facility] - 05/23/2025 3:56 PM EDT Assay performed by immunoassay at the [facility]. Performed on [employer] chemiluminescent immunoassay, tractable to the World Health Organization's first international standard for PTH from the NIBS, Code 79/500. Results obtained from different test methods or kits cannot be used interchangeably. Israel Castro MD LAB BLOOD ORDERABLES Final Re sult Performing Organization Address City/[facility] Co de Phone Number [facility] [address] [place] [id number] * CT Bony Pelvis (05/09/2025 4:19 PM [...] Total DLP (Dose-Length Product): 2512.38 mGy.cm (accession [id number]), 2512.38 mGy.cm (accession [id number]), 2512.38 mGy.cm (accession [id number]). Please note: The reported value represents the [...] Total DLP (Dose-Length Product): 2512.38 mGy.cm (accession [id number]),2512.38 mGy.cm (accession [id number]), 2512.38 mGy.cm (accession [id number]).Please note: The reported value represents the total [...] Total DLP (Dose-Length Product): 2512.38 mGy.cm (accession [id number]), 2512.38 mGy.cm (accession [id number]), 2512.38 mGy.cm (accession [id number]). Please note: The reported value represents the [...] Total DLP (Dose-Length Product): 2512.38 mGy.cm (accession [id number]),2512.38 mGy.cm (accession [id number]), 2512.38 mGy.cm (accession [id number]).Please note: The reported value represents the total [...] Total DLP (Dose-Length Product): 2512.38 mGy.cm (accession [id number]), 2512.38 mGy.cm (accession [id number]), 2512.38 mGy.cm (accession [id number]). Please note: The reported value represents the [...] Total DLP (Dose-Length Product): 2512.38 mGy.cm (accession [id number]),2512.38 mGy.cm (accession [id number]), 2512.38 mGy.cm (accession [id number]).Please note: The reported value represents the total [...] Quant PCR (05/09/2025 2:40 PM EDT) Pathologist [facility] Hepatitis C Antibody Negative Negative 05/09/2025 3:37 PM EDT [facility] Blood Venous blood specimen / Unknown Venipuncture / Unknown 05/09/2025 2:40 PM EDT 05/09/2025 2:55 PM EDT us Jesus Archer MD LAB BLOOD ORDERABLES Andreea l Result Performing Organization Address City/[facility]/ZIP Co de Phone Number [facility] [address] [place] [address] * PT-INR (05/09/2025 2:40 PM EDT) [facility] Prothrombin Time 12.9 12.0 - 14.3 sec 05/09/2025 3:13 PM EDT [facility] INR 1.0 0.9 - 1.1 05/09/2025 3:13 PM EDT [facility] Blood Venous blood specimen / Unknown Venipuncture / Unknown 05/09/2025 2:40 PM EDT 05/09/2025 2:46 PM EDT Narrative [facility] - 05/09/2025 3:13 PM EDT OPTIMAL INR RANGES FOR PATIENT ON ORAL ANTICOAGULANT THERAPY Prevention of venous thromboembolism INR 2.0 to 3.0 In patients with heart disease: Atrial fibrillation INR 2.0 to 3.0 Valvular heart disease INR 2.0 to 3.0 Tissue heart valves INR 2.0 to 3.0 Mechanical prosthetic valves INR 2.5 to 3.5 Prevention of recurrent TN INR 2.5 to 3.5 us Jesus Archer MD LAB BLOOD ORDERABLES Andreea l Result [facility] [address] [place] [address] * Anti Xa Level Unfractionated Heparin (05/09/2025 2:40 PM EDT) [facility] Anti Xa Level Unfractionated Heparin <0.11 <1.00 IU/mL 05/09/2025 3:14 PM EDT [facility] [facility] Blood Venous blood specimen / Unknown Venipuncture / Unknown 05/09/2025 2:40 PM EDT 05/09/2025 2:46 PM EDT Narrative [facility] - 05/09/2025 3:14 PM EDT Therapeutic Range: UFH Full Dose and ACS/TN protocols*: 0.30 - 0.70 IU/mL UFH Low Dose protocol*: 0.25 - 0.50 IU/mL UFH prophylaxis: Not established us Jesus Archer MD LAB BLOOD ORDERABLES Andreea l Result Performing Organization Address City/[facility] Co de Phone Number [facility] [address] [place] [address] * POCT glucose meter (05/09/2025 1:23 PM EDT) [facility] POCT Glucose 93 74 - 99 mg/dL [...] 05/09/2025 1:24 PM EDT [facility] It Project Lead ID Gina Hess 05/09/20 1:24 PM EDT [facility] Device ID [id number] 05/09/2025 1:24 PM EDT HEALTHCARE LAB Specimen Type POC Capillary 05/09/2025 1:24 PM EDT [facility] Blood Capillary blood specimen / Unknown 05/09/2025 1:23 PM EDT 05/09/2025 1:24 PM EDT us Generic Provider Poct LAB POINT OF CARE TEST DOCKED DEVICE UNSOLICITED RESULTS Final Result Performing Organization Address City/[facility] Co de Phone Number [facility]ALTHCARE [facility] [address] [place] [address] * COLONOSCOPY (08/21/2016) Anatomical Region Laterality Modality Endoscopy Narrative 08/21/2016 Ordered by an unspecified provider. us Historical Provider GI PROCEDURE ORDERABLES F inal Result from Last 3 Months or Most Recently Relevant to Health Maintenance Additional Health Concerns Active Problems Noted Date Diagnosed Date Treatment Adherence 07/05/2021 Transportation 07/05/2021 Insurance INFECTIOUS DISEASE PROGRAM INFECTIOUS DISEASE PROGRAM DENTAL [place] [address] Advance Directives * Full Code (Latest Code Status on File) Date Activated Date Inactivated Comments 12/03/2023 12:14 AM 12/03/2023 6:49 PM Question Answer Comments Patient has decision-making capacity? Yes Care Teams Secondary School Teacher Librarian Relationship Specialty Start Date End Date Kayleigh Del Cid MD [address] [place] [address] PCP - General Internal Medicine 04/02/23 Magalis Ruiz Senior Instructional Designer Event Planning Intern 07/25/22 Imtiaz Caraballo MD [address] [place] [address] Family Medicine 04/02/23 Scottie Solo MD [address] [place] [address] Consulting Physician Infectious Diseases 01/09/24
--- OUTSIDE RECORDS SUMMARY | 2025-07-12 10:47 | XMS_ITS | Encounter Summary ---
Author Organization [facility] Address [address] [place] [address] Care Team Providers Care Sharepoint Analyst Name Role Phone Magalis Ruiz Unavailable Unavailable Kayleigh Del Cid MD Primary Care Provider [phone] Imtiaz Caraballo MD Unavailable Unavailab Scottie Davenport MD Unavailable Reason for Visit * Reason Comments Med Refill Encounter Details Date Type Department Care Team (Late st Contact Info) Description 05/26/[address] [phone] Scottie Solo MD [address] [place] [address] [address] [place] [address] HIV disease ([facility]/HCC) Social History Tobacco Use Types Packs/Day Years [...] Description 08/31/2025 1:00 PM EDT Office Visit [address] [phone] [place] [address] [place] [phone] 11/16/2025 9:30 AM EST Office Visit [address] [phone] Scottie Solo MD [address] [place] [phone] 11/16/2025 10:30 AM EST Office Visit [address] [phone] Kayleigh Del Cid MD [address] [place] [address] 01/11/2026 8:15 AM EST Office Visit [facility] [address] [place] [address] Dirk Hoffman, OD [address] [address] documented as of this encounter [...] documented as of this encounter Care Teams Sharepoint Analyst Relationship Specialty Start Date End Date Kayleigh Del Cid MD [facility] [address] [address] PCP - General Internal Medicine 04/02/23 Magalis Ruiz Gi Physician System Support Analyst 07/25/22 Imtiaz Caraballo MD [facility] [address] [address] Family Medicine 04/02/23 Scottie Solo MD [facility] [address] [address] Consulting Physician Infectious Diseases 01/09/24 documented as of this encounter
--- OUTSIDE RECORDS SUMMARY | 2025-07-12 10:47 | XMS_ITS | Encounter Summary ---
Author Organization [facility] Address [address] [place] [address] Care Team Providers Care Padder Cushion Name Role Phone Magalis Ruiz Unavailable Unavailable Kayleigh Del Cid MD Primary Care Provider [phone] Imtiaz Caraballo MD Unavailable Unavailab Scottie Davenport MD Unavailable Encounter Details Date Type Department Care Team (Late st Contact Info) Description 07/07/2025 Patient Outreach [facility] [address] [place] [address] [place] [address] Social History Tobacco Use Types Packs/Day Years [...] encounter Miscellaneous Notes * Progress Notes - Xiomara Sy - 07/07/2025 12:58 PM EDT Spoke with pt today, following up on BP cuff. Pt confirmed he received the BP cuff this morning sent by this [facility] Admitting [facility] Escort. Pt is unsure where he was receiving PT in the past. Pt plans to call this [facility]mitting [facility] back with name/location, this [facility] Admitting [facility] Escort will follow up to see if the [facility] can assist with the physical therapy co payments. No other concerns reported today. documented in this encounter Plan of Treatment Upcoming Encounters Date Type Department Care Team (Late st Contact Info) Description 08/31/2025 1:00 PM EDT Office Visit [address] [phone] Mike Harley PA [address] [place] [address] 11/16/2025 9:30 AM EST Office Visit [address] [phone] Scottie Solo MD [address] [place] [address] 11/16/2025 10:30 AM EST Office Visit [address] [phone] Kayleigh Del Cid MD [address] [place] [address] 01/11/2026 8:15 AM EST Office Visit [facility] [address] [place] [address] Dirk Hoffman, OD [address] [place] [address] documented as of this encounter [...] documented as of this encounter Care Teams Padder Cushion Relationship Specialty Start Date End Date Kayleigh Del Cid MD [address] [place] [address] [address] [place] [phone] PCP - General Internal Medicine 04/02/23 Magalis Ruiz Lead Manufacturing Technician Local Driver 07/25/22 Imtiaz Caraballo MD [address] [place] [address] Brian [address] [place] [address] Family Medicine 04/02/23 Edil, MD Scottie [address] [facility] [address] [place] [phone] Consulting Physician Infectious Diseases 01/09/24 documented as of this encounter
--- OUTSIDE RECORDS SUMMARY | 2025-07-12 10:47 | XMS_ITS ---
Author Organization [facility] Address [address] [place] [address] Care Team Providers Care Insole Stiffener Name Role Phone Magalis Ruiz Unavailable Unavailable Kayleigh Del Cid MD Primary Care Provider [phone] Imtiaz Caraballo MD Unavailable Unavailab Scottie Davenport [...]
--- OUTSIDE RECORDS SUMMARY | 2025-07-12 10:47 | XMS_ITS | Encounter Summary ---
Author Organization [facility] Address [address] [place] [address] Care Team Providers Care Supervisor Rough End Name Role Phone Magalis Ruiz Unavailable Unavailable Kayleigh Del Cid MD Primary Care Provider [phone] Imtiaz Caraballo MD Unavailable Unavailab Scottie Davenport MD Unavailable Reason for Visit * Reason Comments Med Refill Encounter Details Date Type Department Care Team (Late st Contact Info) Description 07/12/[address] [phone] Scottie Solo MD [address] [place] [address] [address] [place] [address] Gastroesophageal reflux disease without esophagitis Social History Tobacco Use Types Packs/Day Years [...] Description 08/31/2025 1:00 PM EDT Office Visit [address] [phone] Mike Harley PA [address] [place] [phone] 11/16/2025 9:30 AM EST Office Visit [address] [phone] Scottie Solo MD [address] [place] [phone] 11/16/2025 10:30 AM EST Office Visit [address] [phone] Kayleigh Del Cid MD [address] [place] [phone] 01/11/2026 8:15 AM EST Office Visit [facility] [address] [facility] [place] [address] Dirk Hoffman, OD [address] [address] documented as of this encounter [...] as of this encounter Visit Diagnoses Diagnosis Gastroesophageal reflux disease without esophagitis Esophageal reflux documented in this encounter Additional Health Concerns [...] as of this encounter Care Teams Supervisor Rough End Relationship Specialty Start Date End Date Kayleigh Del Cid MD [address] [place] [address] PCP - General Internal Medicine 04/02/23 Magalis Ruiz Insurance Coordinator Cellulose Insulation Helper 07/25/22 Imtiaz Caraballo MD [address] [place] [address] Family Medicine 04/02/23 Scottie Sloo MD [address] [place] [address] Consulting Physician Infectious Diseases 01/09/24 documented as of this encounter
--- OUTSIDE RECORDS SUMMARY | 2025-07-12 10:47 | XMS_ITS | Clinical Summary ---
Author Organization [facility] [place] [address] Care Team Providers Care Manager Event Name Role Phone Unavailable Primary Care Provider [...]
--- OUTSIDE RECORDS SUMMARY | 2025-07-12 10:47 | XMS_ITS | Encounter Summary ---
Author Organization [facility] Address [address] [place] [address] Care Team Providers Care Title Officer Name Role Phone Magalis Ruiz Unavailable Unavailable Kayleigh Del Cid MD Primary Care Provider [phone] Imtiaz Caraballo MD Unavailable Unavailab Scottie Davenport MD Unavailable Reason for Visit * Reason Comments Med Refill Encounter Details Date Type Department Care Team (Late st Contact Info) Description 08/21/[address] [facility] [address] [place] [address] Joana Echevarria MD [address] [facility] [address] [place] [address] Stage 3 chronic kidney disease, [...] Description 08/31/2025 1:00 PM EDT Office Visit [place] [phone] [place] [address] [place] [address] 11/16/2025 9:30 AM EST Office Visit [address] [phone] Scottie Solo MD [address] [place] [phone] 11/16/2025 10:30 AM EST Office Visit [address] [phone] Kayleigh Del Cid MD [address] [place] [phone] 01/11/2026 8:15 AM EST Office Visit [facility] [address] [place] [address] Dirk Hoffman, OD [address] [address] documented as of this encounter [...] documented as of this encounter Care Teams Title Officer Relationship Specialty Start Date End Date Kayleigh Del Cid MD [address] [place] [address] PCP - General Internal Medicine 04/02/23 Magalis Ruiz Formation Fracturing Operator Global Climate Change Researcher 07/25/22 Imtiaz Caraballo MD [address] [place] [phone] Family Medicine 04/02/23 Scotite Solo MD [address] [place] [phone] Consulting Physician Infectious Diseases 01/09/24 documented as of this encounter
--- NOTE | 2025-07-12 11:01 | ED_ITS ---
<Statement entered by Zane Donovan MD - 07/12/25 15:08> I was consulted by the SUSAN, and we discussed the complexity of the problems being addressed. I approved the treatment and management plan for this patient's care in the emergency department, thus performing a substantive portion of the medical decision making. Zane Donovan MD, HOLLIE, FACEP Discharge Plan Disposition Patient Disposition: Home, Self-Care Prescriptions Prescriptions: New tamsulosin 0.4 mg capsule 0.4 mg PO DAILY 30 Days Qty: 30 0RF No Action atorvastatin 80 mg tablet 80 mg PO DAILY clopidogrel 75 mg tablet 75 mg PO DAILY pantoprazole 20 mg tablet,delayed release (DR/EC) 20 mg PO DAILY Repatha SureClick 140 mg/mL pen injector 140 mg SQ Q2W sildenafil 100 mg tablet See Rx Instructions PO DAILY PRN Rx Instructions: Take 1/2 tab prior to sex famotidine 20 mg tablet 20 mg PO BID hydrocodone-acetaminophen 7.5-325 mg tablet 1 tab PO BID bupropion HCl 300 mg tablet extended release 24 hr 300 mg PO DAILY nortriptyline 50 mg capsule 50 mg PO DAILY diclofenac sodium 1 % gel 4 g topical BID Qty: 100 3RF Rx Instructions: apply to lower back tamsulosin 0.4 MG capsule 0.4 mg PO HS lamivudine 150 MG tablet 150 mg PO DAILY abacavir 300 MG tablet 600 mg PO DAILY escitalopram oxalate 20 MG tablet 20 mg PO DAILY oa-xzc-yjuaf-Q0-rmdpazo-xljvja 1 EACH tablet 1 each PO DAILY dolutegravir 50 MG tablet 50 mg PO DAILY metoprolol succinate 25 MG tablet extended release 24 hr 25 mg PO DAILY Qty: 30 0RF furosemide [Lasix] 20 mg tablet 20 mg PO DAILY 7 Days Qty: 7 0RF cefadroxil 500 mg capsule 500 mg PO BID Qty: 10 0RF thiamine HCl (vitamin B1) 100 mg capsule 100 mg PO TID Qty: 90 0RF mecobalamin (vitamin B12) [B12 Active] 1,000 mcg tablet,chewable 1,000 mcg PO DAILY Qty: 30 0RF Referrals Follow up/Referrals: Nissa Del Cid MD [Primary Care Provider, Internal Medicine] - See instructions Activity Restrictions/Add. Instructions Additional Instructions/Restrictions: You have a follow up apt at Dr. Marquis's office on FridayJul 18 at 1:15pm here at the hospital. Please return to the ED for any worsening of your condition. Please take the tamsulosin as directed. Clinical Impressions Clinical Impression: Acute urinary retention Instructions Patient Instructions: DI for Urinary Retention in Men Print Language Print Language: Korean Discharge ED Provider: Zane Donovan General Adult HPI <Nissa Spencer APRN - Last Filed: 07/12/25 14:16> General Chief complaint: Urogenital-Male Stated complaint: swollen genitials,catheter Time Seen by Provider: 07/12/25 11:01 History of Present Illness HPI narrative: patient is a 75-year-old male PMHx HIV (on treatment), CAD, CKD, HTN, HLD who presents to the ED requesting that his Baez catheter be removed. Patient states he had a Baez catheter placed last Friday for urinary retention. He states he has never experienced urinary retention before until last Friday. Related Data Home Medications ?Medication ?Instructions ?Recorded ?Confirmed abacavir 300 mg tablet 600 mg PO DAILY HIV 10/19/19 06/28/25 dolutegravir 50 mg tablet 50 mg PO DAILY HIV 10/19/19 06/28/25 escitalopram oxalate 20 mg tablet 20 mg PO DAILY Depre ssion 10/19/19 06/28/25 lamivudine 150 mg tablet 150 mg PO DAILY HIV 10/19/19 06/28/25 onoizrkf-jt-mibyw 300 mcg-K 60 1 each PO DAILY Diet andrade pplement 10/19/19 06/28/25 mcg-lycop 600 mcg-lutein 300 mcg tablet tamsulosin 0.4 mg capsule 0.4 mg PO HS prostate 06/28/25 atorvastatin 80 mg tablet 80 mg PO DAILY 02/11/2306/01 clopidogrel 75 mg tablet 75 mg PO DAILY 02/11/2306/01 evolocumab 140 mg/mL subcutaneous 140 mg SQ Q2W 06/28/25 pen injector (Tra Nixon) pantoprazole 20 mg tablet,delayed 20 mg PO DAILY 02/1106/28/25 release sildenafil 100 mg tablet See Rx Instructions PO DAILY PRN 02/11/23 06/28/25 bupropion HCl 300 mg 24 hr tablet, 300 mg PO DAILY Dep ression 04/15/23 06/28/25 extended release nortriptyline 50 mg capsule 50 mg PO DAILY 04/15/23 famotidine 20 mg tablet 20 mg PO BID 06/28/25 hydrocodone 7.5 mg-acetaminophen 1 tab PO BID 06/28/25 06/28/25 325 mg tablet Previous Rx's ?Medication ?Instructions ?Recorded metoprolol succinate 25 mg 25 mg PO DAILY #30 tabs tablet,extended release 24 hr diclofenac sodium 1 % topical gel 4 g topical BID #100 grams 02/12/23 furosemide 20 mg tablet (Lasix) 20 mg PO DAILY 1 week #7 tabs 12/15/24 cefadroxil 500 mg capsule 500 mg PO BID #10 caps 07/06 mecobalamin (vitamin B12) 1,000 1,000 mcg PO DAILY #30 tabs 07/06/25 mcg chewable tablet (B12 Active) thiamine HCl (vitamin B1) 100 mg 100 mg PO TID #90 cap s 07/06/25 capsule tamsulosin 0.4 mg capsule 0.4 mg PO DAILY 30 days #30 caps 07/12/25 Allergies Allergy/AdvReac Type Severity Reaction Status Date / Time morphine Allergy Verified 06/28/25 14:20 <Zane Donovan MD - Last Filed: > General Mode of Arrival: Ambulatory Source of Information: Patient Description of Symptoms (Recalled from ER Triage Doc. by RN): pt reports swelling in his genetal area around his catheter. was unable to urinate last week. has not made an appointmet with urology. [facility] <Nissa Spencer APRN - Last Filed: 07/12/25 14:16> [facility] Medical History Coronary artery disease Presence of IVC filter History of deep venous thrombosis Abnormal cardiovascular stress test Angina pectoris GERD (gastroesophageal reflux disease) Syncope Chest pain Stage 3 chronic kidney disease Hyperlipidemia Hypertension HIV disease Heat exposure MARGARET (acute kidney injury) Surgical History Stented coronary artery Family History Mother Stroke Social History Smoking Status: Never smoker alcohol intake: former substance use type: marijuana current occupational status: retired Travel in the last 8 weeks?: None household members: spouse and children housing: house caffeine: Yes <Zane Donovan MD - Last Filed: > [facility] Disclaimer: The information contained in this section may have been updated after the patient was seen, as this information can be updated by other users. Other Medical History Have you received the Flu Vaccine for this season: No Have you received the Pneumonia Vaccine: Yes <Nissa Spencer APRN - Last Filed: 07/12/25 14:16> ROS Obtained: Yes Systems reviewed as appropriate & no additional complaints except as documented Physical Exam <Nissa Spencer APRN - Last Filed: 07/12/25 14:16> General General appearance: alert and in no apparent distress Head Head exam: atraumatic Eye Eye exam: Present PERRL Neck Neck exam: Present full ROM Respiratory Respiratory exam: Present normal lung sounds bilaterally Cardiovascular Cardiovascular exam: Present regular rate Abdominal Exam Abdominal exam: Present soft; Absent tenderness exam: Present other (Paraphimosis) Neurological Exam Neurological exam: Present alert and oriented X3 Psychiatric Psychiatric exam: Present normal affect Skin Skin exam: Present warm Medical Decision Making <Nissa Spencer APRN - Last Filed: 07/12/25 14:16> [place] Inquiry Pt receiving controlled substance: No Vital Signs: 07/12/25 10:37 07/12/25 11:10 07/12/25 11:31 Temperature 97.8 F Temperature Source Oral Pulse Rate 64 Pulse Rate [Right] 71 Respiratory Rate 18 Blood Pressure 137/74 128/104 H Blood Pressure [Right Arm] 107/65 L Blood Pressure Mean [Right Arm] 79 Blood Pressure Source Blood Pressure Position 02 Sat by Pulse Oximetry 99 99 88 L Oxygen Delivery Method Room Air 07/12/25 12:00 07/12/25 12:30 07/12/25 13:01 Temperature Temperature Source Pulse Rate 64 63 57 L Pulse Rate [Right] Respiratory Rate Blood Pressure 112/71 132/72 172/82 H Blood Pressure [Right Arm] Blood Pressure Mean [Right Arm] Blood Pressure Source Blood Pressure Position 02 Sat by Pulse Oximetry 92 L 89 L 97 Oxygen Delivery Method 07/12/25 13:30 07/12/25 14:07 Temperature 98 F Temperature Source Oral Pulse Rate 59 L 58 L Pulse Rate [Right] Respiratory Rate 14 Blood Pressure 173/79 H 172/79 H Blood Pressure [Right Arm] Blood Pressure Mean [Right Arm] Blood Pressure Source Automatic Cuff Blood Pressure Position Supine 02 Sat by Pulse Oximetry 100 Oxygen Delivery Method Room Air Medical Decision Narrative: In summary, patient is a 75-year-old male PMHx HIV (on treatment), CAD, CKD, HTN, HLD who presents to the ED requesting that his Baez catheter be removed. Patient states he had a Baez catheter placed last Friday for urinary retention. He states he has never experienced urinary retention before until last Friday. He reports that yesterday he began to have edema of his penis. Patient reports he is having significant pain and would like the catheter removed. He denies any additional issues, has not followed up with urology yet. Patient states he does not have a pending urology appointment. He denies fever, chills, body aches, chest pain, shortness of breath, abdominal pain, nausea, vomiting, back pain, lower abdominal pain. Upon initial evaluation patient he is alert, oriented and cooperative. He is hemodynamically stable. Physical exam remarkable for paraphimosis, it is not circumferential. Baez catheter removed. Patient advised he will have to urinate while in the ED. Patient was able to manually reduce his foreskin in ED. Recent labs from 07/06/2025 reviewed, CBC was unremarkable for any leukocytosis, stable H&H. BUN was 21, creatinine was 1.90 which appears to be patient's baseline. Unable to urinate while in the ED. His penile swelling has decreased during his stay. Attending had a discussion with patient, shared decision making used, patient will have a Baez catheter placed again here in the ED and follow-up with Dr. Marquis on July 18. He is agreeable to plan of care at this time. We discussed return precautions to the ED and patient verbalized understanding. <Zane Donovan MD - Last Filed: > Medical Records Screening: Per USPSTF and CDC recommendations, given the prevalence of disease in our region, it is our hospital?s policy to screen for HIV and viral Hepatitis for all patients aged 18 and over and those with ongoing risk factors. Vital Signs: 07/12/25 10:37 07/12/25 11:10 07/12/25 11:31 Temperature 97.8 F Temperature Source Oral Pulse Rate 64 Pulse Rate [Right] 71 Respiratory Rate 18 Blood Pressure 137/74 128/104 H Blood Pressure [Right Arm] 107/65 L Blood Pressure Mean [Right Arm] 79 Blood Pressure Source Blood Pressure Position 02 Sat by Pulse Oximetry 99 99 88 L Oxygen Delivery Method Room Air 07/12/25 12:00 07/12/25 12:30 07/12/25 13:01 Temperature Temperature Source Pulse Rate 64 63 57 L Pulse Rate [Right] Respiratory Rate Blood Pressure 112/71 132/72 172/82 H Blood Pressure [Right Arm] Blood Pressure Mean [Right Arm] Blood Pressure Source Blood Pressure Position 02 Sat by Pulse Oximetry 92 L 89 L 97 Oxygen Delivery Method 07/12/25 13:30 07/12/25 14:07 Temperature 98 F Temperature Source Oral Pulse Rate 59 L 58 L Pulse Rate [Right] Respiratory Rate 14 Blood Pressure 173/79 H 172/79 H Blood Pressure [Right Arm] Blood Pressure Mean [Right Arm] Blood Pressure Source Automatic Cuff Blood Pressure Position Supine 02 Sat by Pulse Oximetry 100 Oxygen Delivery Method Room Air Critical Care <Nissa Spencer, CODING CLERKS SUPERVISOR - Last Filed: 07/12/25 14:16> Critical Care Time Critical Care Time: No
--- NOTE | 2025-07-12 11:20 | PC.NURSE ---
gonzáles cath removed. pt tolerated well.
--- NOTE | 2025-07-12 13:49 | PC.NURSE ---
BLADDER SCAN 42-43MLS
== END 2025-07-12 14:26 | disposition home or self-care (01) ==
PROVIDERS: Emergency Provider Student in an Organized Health Care Education/Training Program; PCP Internal Medicine
DX: R33.9 Retention of urine, unspecified (principal)
CPT/HCPCS: 51702; 99282; 99283

== ENCOUNTER 2025-11-08 06:49 | Emergency (ER) | payer MEDICARE, SELFPAY ==
--- OUTSIDE RECORDS SUMMARY | 2025-09-27 12:40 | XMS_ITS | Encounter Summary ---
Author Organization [facility] Address [address] [place] [address] Care Team Providers Care Traffic Control Technician Name Role Phone Magalis Ruiz Unavailable Unavailable Kayleigh Del Cid MD Primary Care Provider [phone] Imtiaz Caraballo MD Unavailable Unavailab Scottie Davenport MD Unavailable Gina Quick APRN Unavailable [phone] Reason for Referral * Consultation (Routine) - Authorized Specialty Diagnoses / Procedures Referred By Contac t Referred To Contact Diagnoses Arteriosclerosis of coronary artery Primary hypertension Pure hypercholesterolemia Karli De Luna APRN, DNP [address] [place] [address] Phone: tel: fax: Referral ID Status Reason Start Date Expiration Date V isits Requested Visits Authorized [id number] Authorized 09/27/2025 03/29/2027 1 1 * Consultation (Routine) - Authorized Specialty Diagnoses / Procedures Referred By Contac t Referred To Contact Diagnoses Arteriosclerosis of coronary artery Primary hypertension Karli De Luna APRN, DNP [address] [place] [address] Phone: tel: fax: Referral ID Status Reason Start Date Expiration Date V isits Requested Visits Authorized [id number] Authorized 09/27/2025 03/29/2027 1 1 Reason for Visit * Reason Comments Follow-up Encounter Details Date Type Department Care Team (Latest Contact Info) Description 09/27/2025 1:40 PM EDT Office Visit [facility] [address] [place] [address] Jose Doty MD [address] [place] [address] Arteriosclerosis of coronary artery (Primary [...] at all 09/27/2025 2:26 PM SATHISHT Alicia Diceky Feeling tired or having benitez le energy [...] * Progress Notes - Karli De Luna, SOCIAL SECURITY ASSESSOR, DNP - 09/27/2025 1:40 PM EDT Images from the original note were not included. Cardiology Clinic Note Date of Visit 09/27/25 Patient Rk Rodriguez [address] [place] [address] PCP Kayleigh Del Cid MD SUBJECTIVE History of Present Illness Today Dr. Jose Doty and I saw Rk Rodriguez, a 75 y.o. male at the [facility] [place] [facility] [place] for follow up. Past medical history: CAD [...] previously taken Imdur and caused a severe THOSMON -Continue Atorvastatin, Metoprolol Succinate, and Plavix -Adding [...] Chronic kidney disease (CKD), stage III (moderate) ([facility]/HCC) Benign prostatic hyperplasia Arteriosclerosis of coronary artery Erectile dysfunction HIV disease ([facility]/HCC) Primary hypertension Hyperlipidemia Renal osteodystrophy Pap [...] Falls frequently Human immunodeficiency virus (HIV) disease ([facility]/HCC) Hypertensive disorder Back pain with radiation [...] Fresh blood passed per rectum HIV disease ([facility]/HCC) Hyperlipidemia Knee pain Leg pain Low [...] STENT PLACEMENT N/A Arterial stent placement from [facility] HEMORRHOID SURGERY N/A Hemorrhoidectomy from [facility] [4] Family History Problem Relation Name Age [...] MG capsule, , Disp: , Rfl: HYDROcodone-acetaminophen ([place]) 7.5-325 MG tablet, Take 1 tablet (7.5 [...] Description 11/16/2025 9:30 AM EST Office Visit [facility] [address] [place] [address] [place] [address] [place] [address] [address] [place] [address] 11/16/2025 10:30 AM EST Office Visit [facility] [address] [facility] [place] [address] Kayleigh Del Cid MD [address] [facility] [address] [place] [address] 01/11/2026 8:15 AM EST Office Visit [facility] [address] [place] [address] Dirk Hoffman, OD [address] [place] [address] 02/20/2026 10:10 AM EDT Office Visit [facility] [address] [place] [address] Gina Quick M, SOCIAL SECURITY ASSESSOR [address] [place] [address] 03/28/2026 1:40 PM EDT Office Visit [facility] [address] [place] [address] Jose Doty MD [address] [place] [address] Scheduled Referrals Name Type Priority Associated Diagnoses [...] documented as of this encounter Care Teams Traffic Control Technician Relationship Specialty Start Date End Date Kayleigh Del Cid MD [address] [place] [address] PCP - General Internal Medicine 04/02/23 Magalis Ruiz Track Surfacing Machine Operator Paying Teller 07/25/22 09/28/25 Imtiaz Caraballo MD [address] [place] [address] Family Medicine 04/02/23 Scottie Solo MD [address] [place] [address] Consulting Physician Infectious Diseases 01/09/24 Gina Quick APRN [address] [facility] [place] [address] Nurse Practitioner Urology 08/23/25 documented as of this encounter
[2025-11-08] VITALS (13 sets, daily range): BP systolic 127–184; BP diastolic 70–113; PULSE 52–67; RESP 12–18; TEMP 36.5–36.6; O2SAT 97–100; BMI 24.1
--- NOTE | 2025-11-08 06:42 | XR_ITS ---
PROCEDURE INFORMATION: Exam: XR Chest Exam date and time: 11/08/2025 7:34 AM Age: 75 years old Clinical indication: Other: Chest pain; Additional info: Cp HTN TECHNIQUE: Imaging protocol: Radiologic exam of the chest. Views: 1 view. COMPARISON: CT ANGIO CHEST 11/08/2025 7:30 AM FINDINGS: Lungs: Unremarkable. No consolidation. Pleural spaces: Unremarkable. No pleural effusion. No pneumothorax. Heart/Mediastinum: There are old, calcified mediastinal lymph nodes. The heart is normal in size. Bones/joints: Unremarkable. IMPRESSION: No acute findings.
--- NOTE | 2025-11-08 06:46 | ECG_ITS ---
APPROVED REPORT Exam: Resting ECG HR:51 bpm ECG Measurements Heart Rate 51 AXES VA 203 P 74 QRSd 109 QRS 50 QT 463 T 37 QTc 439 Conclusion SINUS BRADYCARDIA NONSPECIFIC ST & T-WAVE ABNORMALITY No STEMI Electronically signed by : ELLIS ELENA, 11/10/2025 03:12:28
--- NOTE | 2025-11-08 06:53 | CT_ITS ---
PROCEDURE INFORMATION: Exam: CTA Neck With Contrast Exam date and time: 11/08/2025 7:21 AM Age: 75 years old Clinical indication: Injury or trauma; Fall; Additional info: Fall, vision changes, difficulty understanding commands TECHNIQUE: Imaging protocol: Computed tomographic angiography of the neck with contrast. Exam focused on the cervical segments of the vasculature. 3D rendering (Not supervised by radiologist): MIP and/or 3D reconstructed images were created by the technologist. Radiation optimization: All CT scans at this facility use at least one of these dose optimization techniques: automated exposure control; mA and/or kV adjustment per patient size (includes targeted exams where dose is matched to clinical indication); or iterative reconstruction. Contrast material: ISOVUE; Contrast volume: 80 ml; Contrast route: INTRAVENOUS (IV); COMPARISON: CT ANGIO NECK 07/06/2025 11:33 AM FINDINGS: Right common carotid artery: No stenosis. No dissection or occlusion. Right internal carotid artery: There is moderate calcification of the right internal carotid origin with about 65% compromise of the lumen on coronal image 54. Right external carotid artery: No occlusion or stenosis of the origin. Left common carotid artery: No stenosis. No dissection or occlusion. Left internal carotid artery: There is moderate calcification of the left internal carotid origin with less than 50% compromise of the lumen. Left external carotid artery: No occlusion or stenosis of the origin. Right vertebral artery: There is a dominant right vertebral artery with no evidence of dissection but there is mild stenosis adjacent to a subclavian plaque on coronal image 72. Left vertebral artery: There is a non dominant left vertebral artery with no evidence of dissection or stenosis. Thyroid: The thyroid appears normal. Teeth: The patient is edentulous. Soft tissues: Normal. No significant soft tissue swelling. Bones/joints: The spine demonstrates moderate degenerative changes at multiple levels. Lungs: The visualized portions of the lung apices are normal. IMPRESSION: 1. There is moderate calcification of the right internal carotid origin with about 65% compromise of the lumen on coronal image 54. 2. There is moderate calcification of the left internal carotid origin with less than 50% compromise of the lumen. 3. There is a dominant right vertebral artery with no evidence of dissection but there is mild stenosis adjacent to a subclavian plaque on coronal image 72. 4. There is a non dominant left vertebral artery with no evidence of dissection or stenosis. REFERENCES: NASCET CRITERIA. The degree of stenosis in the cervical segment of the internal carotid artery is based on NASCET criteria. Normal is no stenosis. Mild is less than 50% stenosis. Moderate is 50-69% stenosis. Severe is 70% to 99% stenosis. Total occlusion is no detectable patent lumen.
--- NOTE | 2025-11-08 06:53 | CT_ITS ---
PROCEDURE INFORMATION: Exam: CT Head Without Contrast Exam date and time: 11/08/2025 7:18 AM Age: 75 years old Clinical indication: Injury or trauma; Fall; Additional info: Fall 0400, hit head, confused TECHNIQUE: Imaging protocol: Computed tomography of the head without contrast. Radiation optimization: All CT scans at this facility use at least one of these dose optimization techniques: automated exposure control; mA and/or kV adjustment per patient size (includes targeted exams where dose is matched to clinical indication); or iterative reconstruction. COMPARISON: CT HEAD/BRAIN WO CON 07/06/2025 11:30 AM FINDINGS: Brain: No acute intracranial hemorrhage. No evidence of acute large vessel infarct. No mass effect or midline shift. Mild parenchymal atrophy. Mild areas of low attenuation in the bilateral periventricular white matter are nonspecific but most likely due to chronic microvascular ischemic changes. Cerebral ventricles: Prominent ventricles related to underlying atrophy. Paranasal sinuses: Included paranasal sinuses are clear. No fluid levels. Mastoid air cells: Mastoid air cells are clear. Orbital cavities: Visualized orbits are unremarkable. Bones: Unremarkable. No acute fracture. Soft tissues: Unremarkable. Vasculature: Intracranial atherosclerotic calcifications. IMPRESSION: No CT evidence of acute intracranial abnormality. Chronic findings as above.
--- NOTE | 2025-11-08 06:53 | CT_ITS ---
PROCEDURE INFORMATION: Exam: CTA Head With Contrast, Arteriography Exam date and time: 11/08/2025 7:21 AM Age: 75 years old Clinical indication: Injury or trauma; Fall; Additional info: Fall, vision changes, difficulty understandcommand TECHNIQUE: Imaging protocol: Computed tomographic angiography of the head with contrast. Exam focused on the arteries. 3D rendering (Not supervised by radiologist): MIP and/or 3D reconstructed images were created by the technologist. Radiation optimization: All CT scans at this facility use at least one of these dose optimization techniques: automated exposure control; mA and/or kV adjustment per patient size (includes targeted exams where dose is matched to clinical indication); or iterative reconstruction. Contrast material: ISOVUE; Contrast volume: 80 ml; Contrast route: INTRAVENOUS (IV); COMPARISON: CT ANGIO HEAD 07/06/2025 11:33 AM FINDINGS: ANTERIOR CIRCULATION: Right internal carotid artery: Intracranial segment is patent with no significant stenosis. No aneurysm. Right middle cerebral artery: No occlusion or significant stenosis. No aneurysm. Right anterior cerebral artery: No occlusion or significant stenosis. No aneurysm. Left internal carotid artery: Intracranial segment is patent with no significant stenosis. No aneurysm. Left middle cerebral artery: No occlusion or significant stenosis. No aneurysm. Left anterior cerebral artery: No occlusion or significant stenosis. No aneurysm. POSTERIOR CIRCULATION: Right vertebral artery: No occlusion or significant stenosis. No aneurysm. Left vertebral artery: No occlusion or significant stenosis. No aneurysm. Basilar artery: No occlusion or significant stenosis. No aneurysm. Right posterior cerebral artery: No occlusion or significant stenosis. No aneurysm. Left posterior cerebral artery: There is origin of the left posterior cerebral artery. There is no P1 segment. Veins: There is possible filling defect in the superior sagittal sinus extending to a point distally about 3 cm proximal to the torcular. Prominent lateral draining veins are seen bilaterally. MRI and MR venogram are recommended including postcontrast images. Brain: There is no evidence of intracranial large vessel stenosis or occlusion. Cerebral ventricles: No ventriculomegaly. Bones/joints: Unremarkable. No acute fracture. Soft tissues: Unremarkable. IMPRESSION: 1. There is origin of the left posterior cerebral artery. There is no P1 segment. 2. There is no evidence of intracranial large vessel stenosis or occlusion. 3. There is possible filling defect in the superior sagittal sinus extending to a point distally about 3 cm proximal to the torcular. Prominent lateral draining veins are seen bilaterally. MRI and MR venogram are recommended including postcontrast images.
--- NOTE | 2025-11-08 06:53 | CT_ITS ---
PROCEDURE INFORMATION: Exam: CTA Abdomen and Pelvis With Contrast Exam date and time: 11/08/2025 7:30 AM Age: 75 years old Clinical indication: Injury or trauma; Fall; Other: Mathur; Additional info: Fall, upper and lower abd ttp TECHNIQUE: Imaging protocol: Computed tomographic angiography of the abdomen and pelvis with contrast. Exam focused on the arteries. 3D rendering (Not supervised by radiologist): MIP and/or 3D reconstructed images were created by the technologist. Radiation optimization: All CT scans at this facility use at least one of these dose optimization techniques: automated exposure control; mA and/or kV adjustment per patient size (includes targeted exams where dose is matched to clinical indication); or iterative reconstruction. Contrast material: ISVOUE; Contrast volume: 80 ml; Contrast route: INTRAVENOUS (IV); COMPARISON: CT ANGIO ABD/PEL - TRAUMA 11/08/2025 7:30 AM FINDINGS: Aorta: The abdominal aorta is nonaneurysmal Celiac and mesenteric arteries: . Severe stenosis at the origin of the celiac trunk without associated calcified plaque. The stenosis is likely secondary to median arcuate ligament syndrome. There is a patent appearing stent at the origin of the SMA. Renal arteries: The left renal artery is occluded, likely chronic given the significant left renal atrophy present. Right iliac arteries: No occlusion or significant stenosis. Left iliac arteries: No occlusion or significant stenosis. Veins: The IVC filter is well-positioned. Liver: Hepatic steatosis. No focal liver lesion identified. No intrahepatic biliary dilatation. Gallbladder and biliary ducts: The gallbladder is unremarkable with no calcified stones visualized and no strandy inflammatory changes surrounding the gallbladder. The small bowel loops are not thickened and are nondilated. Pancreas: The pancreas is normal in appearance. No evidence of pancreatic ductal dilatation. Spleen: The spleen is normal in appearance. Adrenal glands: The adrenal glands are normal in appearance. Kidneys and ureters: There is atrophy of the left kidney. No evidence of left hydronephrosis. There is a 8 mm simple appearing left renal cortical cyst. The right kidney is normal in appearance. No evidence of right hydronephrosis. The right kidney is visualized excreting contrast while the atrophied left kidney does not. There is a simple appearing right renal cortical cyst measuring about 3.9 cm. Stomach and bowel: Small air-filled duodenal diverticulum. The small bowel loops are not thickened and are nondilated. The colon is unremarkable. Appendix: The appendix is normal in appearance. No evidence of appendicitis. Intraperitoneal space: Unremarkable. No free air. No significant fluid collection. Lymph nodes: Unremarkable. No enlarged lymph nodes. Urinary bladder: The urinary bladder is normal in appearance. Reproductive: Unremarkable as visualized. Bones/joints: No acute osseous lesions. There are moderate chronic degenerative changes in the lumbar spine. Mild chronic degenerative changes at each hip. Soft tissues: There are small fat containing bilateral inguinal hernias. Trace gas in the subcutaneous fat of the left mid abdomen. No evidence of an abscess or hematoma of the abdominal wall. IMPRESSION: 1. 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 2. The previously stented proximal SMA appears patent. 3. 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 4. Hepatic steatosis. 5. No acute bowel pathology identified. COMMENTS: For patients with an IVC filter, recommend assessment for a management plan for the patient's IVC filter. If there is no established management plan, recommend referral to an interventional clinician on a nonemergent basis for evaluation.
--- NOTE | 2025-11-08 06:53 | CT_ITS ---
PROCEDURE INFORMATION: Exam: CTA Chest With Contrast Exam date and time: 11/08/2025 7:30 AM Age: 75 years old Clinical indication: Injury or trauma; Fall; Additional info: Fall, upper abd pain, HTN TECHNIQUE: Imaging protocol: Computed tomographic angiography of the chest with contrast. Exam focused on the arteries. 3D rendering (Not supervised by radiologist): MIP and/or 3D reconstructed images were created by the technologist. Radiation optimization: All CT scans at this facility use at least one of these dose optimization techniques: automated exposure control; mA and/or kV adjustment per patient size (includes targeted exams where dose is matched to clinical indication); or iterative reconstruction. Contrast material: ISOVUE; Contrast volume: 80 ml; Contrast route: INTRAVENOUS (IV); COMPARISON: CR XR CHEST PORTABLE 10/19/2019 11:16 PM FINDINGS: Pulmonary arteries: No visible PE. Aorta: The thoracic aorta is nonaneurysmal and there is no evidence of aortic dissection. Lungs: No acute pulmonary infiltrates. No suspicious pulmonary nodules. Pleural spaces: Unremarkable. No pneumothorax. No pleural effusion. Heart: The heart is normal in size. No pericardial effusion. There is calcified coronary artery disease. There are aortic valve calcifications. Lymph nodes: There are several small old calcified mediastinal lymph nodes suggesting old granulomatous disease. Bones/joints: There are old, healed right-sided rib fractures. No acute rib fractures identified. There are mild multilevel chronic degenerative changes in the thoracic spine. Soft tissues: Unremarkable. IMPRESSION: 1. No visible PE and the thoracic aorta is normal in appearance. 2. Calcified coronary artery disease.
--- NOTE | 2025-11-08 06:59 | [facility].EDCP ---
Discharge Plan Disposition Patient Disposition: Left Against Medical Advice Prescriptions Prescriptions: No Action atorvastatin 80 mg tablet 80 mg PO DAILY clopidogrel 75 mg tablet 75 mg PO DAILY pantoprazole 20 mg tablet,delayed release (DR/EC) 20 mg PO DAILY Repatha SureClick 140 mg/mL pen injector 140 mg SQ Q2W sildenafil 100 mg tablet See Rx Instructions PO DAILY PRN Rx Instructions: Take 1/2 tab prior to sex famotidine 20 mg tablet 20 mg PO BID hydrocodone-acetaminophen 7.5-325 mg tablet 1 tab PO BID bupropion HCl 300 mg tablet extended release 24 hr 300 mg PO DAILY nortriptyline 50 mg capsule 50 mg PO DAILY diclofenac sodium 1 % gel 4 g topical BID Qty: 100 3RF Rx Instructions: apply to lower back tamsulosin 0.4 MG capsule 0.4 mg PO HS lamivudine 150 MG tablet 150 mg PO DAILY abacavir 300 MG tablet 600 mg PO DAILY escitalopram oxalate 20 MG tablet 20 mg PO DAILY [id number] 1 EACH tablet 1 each PO DAILY dolutegravir 50 MG tablet 50 mg PO DAILY metoprolol succinate 25 MG tablet extended release 24 hr 25 mg PO DAILY Qty: 30 0RF furosemide [Lasix] 20 mg tablet 20 mg PO DAILY 7 Days Qty: 7 0RF tamsulosin 0.4 mg capsule 0.4 mg PO DAILY 30 Days Qty: 30 0RF cefadroxil 500 mg capsule 500 mg PO BID Qty: 10 0RF thiamine HCl (vitamin B1) 100 mg capsule 100 mg PO TID Qty: 90 0RF mecobalamin (vitamin B12) [B12 Active] 1,000 mcg tablet,chewable 1,000 mcg PO DAILY Qty: 30 0RF Referrals Follow up/Referrals: Nissa Del Cid MD [Primary Care Provider, Internal Medicine] - See instructions Clinical Impressions Clinical Impression: Left against medical advice, Syncope and collapse, Carotid artery stenosis Print Language Print Language: Slovenian Discharge ED Provider: Stalin Montenegro <Mildred Sanders MD - Last Filed: 11/08/25 07:20> General Chief Complaint: Chest Pain Stated Complaint: Chest Pain Time Seen by Provider: 11/08/25 06:49 Mode of Arrival: EMS Source of Information: Patient and EMS Description of Symptoms (Recalled from ER Triage Doc. by RN): Pt presents to ER from home via EMS for substernal chest pain that started earlier this morning and high blood pressure. Pt states that the pain is radiating into his abdomen and pain worsens when he coughs. Denies n/v/d Pt also states that he fell earlier this morning; states that he hit his head. Pt on blood thinning medication but is unsure of what medication and is noncompliant with home meds. Pt is Alert to self, situation, and place upon arrival. Unable to tell what year/month it is History of Present Illness HPI narrative: 75-year-old male presents to the ER from home via EMS with concerns of high blood pressure which is the reason EMS was reportedly initially called but he was also complaining of chest pain, possible headache, possible vision changes with EMS. They report he is a poor historian and they had a hard time getting information from him. They state he is oriented aside from repeating that it is 1925. Patient reports upper abdominal pain and lower abdominal pain upon presentation to the ER. He is oriented to everything except time stating it is 1925. He is oriented to self and location. Patient denies dizziness, difficulty breathing, pain in the chest, nausea, vomiting, diarrhea, constipation, dysuria, hematuria. He states he fell earlier this morning and did strike his head. This was approximately 2-1/2 hours prior to arrival. He is a very poor historian but states he has slight headache in the front of his head. He reports his vision is bad but he is not wearing his glasses and thinks he needs new ones. He is not able to clearly tell me if his vision is just blurry or if he is having other problems. Peripheral shi are intact on exam. He does report having some confusion at home having difficulty using his blood pressure cuff. Reportedly from EMS his initial blood pressure was in the 200s but he was into the 160s with them prior to arrival. He received 324 of aspirin from EMS but no nitro because he does take Viagra and is not sure the last time he had it. Patient is noncompliant with his home medications according to him. No fevers or chills. No other complaints or concerns. Patient states he last felt normal around 9:30 PM when he went to bed. There is no family or anyone else here to corroborate the story. Review of records demonstrates patient does have a history of HIV, unclear if he is actually compliant with his antiviral medications. He does have a history of urinary retention and UTIs as well as IVC filter, GERD, CAD. Related Data Home Medications ?Medication ?Instructions ?Recorded ?Confirmed abacavir 300 mg tablet 600 mg PO DAILY HIV 10/19/19 06/28/25 dolutegravir 50 mg tablet 50 mg PO DAILY HIV 10/19/19 06/28/25 escitalopram oxalate 20 mg tablet 20 mg PO DAILY Depression 10/19/19 06/28/25 lamivudine 150 mg tablet 150 mg PO DAILY HIV 10/19/19 06/28/25 [id number] 300 mcg-K 60 1 each PO DAILY Diet supplement 10/19/19 06/28/25 mcg-lycop 600 mcg-lutein 300 mcg tablet tamsulosin 0.4 mg capsule 0.4 mg PO HS prostate 10/19/19 06/28/25 atorvastatin 80 mg tablet 80 mg PO DAILY 02/11/23 06/28/25 clopidogrel 75 mg tablet 75 mg PO DAILY 02/11/23 06/28/25 evolocumab 140 mg/mL subcutaneous 140 mg SQ Q2W 02/11/23 06/28/25 pen injector (Tra Nixon) pantoprazole 20 mg tablet,delayed 20 mg PO DAILY 02/11/23 06/28/25 release sildenafil 100 mg tablet See Rx Instructions PO DAILY PRN 02/11/23 06/28/25 bupropion HCl 300 mg 24 hr tablet, 300 mg PO DAILY Depression 04/15/23 06/28/25 extended release nortriptyline 50 mg capsule 50 mg PO DAILY 04/15/23 06/28/25 famotidine 20 mg tablet 20 mg PO BID 06/28/25 06/28/25 hydrocodone 7.5 mg-acetaminophen 1 tab PO BID 06/28/25 06/28/25 325 mg tablet Previous Rx's ?Medication ?Instructions ?Recorded metoprolol succinate 25 mg 25 mg PO DAILY #30 tabs 10/22/19 tablet,extended release 24 hr diclofenac sodium 1 % topical gel 4 g topical BID #100 grams 02/12/23 furosemide 20 mg tablet (Lasix) 20 mg PO DAILY 1 week #7 tabs 12/15/24 cefadroxil 500 mg capsule 500 mg PO BID #10 caps 07/06/25 mecobalamin (vitamin B12) 1,000 1,000 mcg PO DAILY #30 tabs 07/06/25 mcg chewable tablet (B12 Active) thiamine HCl (vitamin B1) 100 mg 100 mg PO TID #90 caps 07/06/25 capsule tamsulosin 0.4 mg capsule 0.4 mg PO DAILY 30 days #30 caps 07/12/25 Allergies Allergy/AdvReac Type Severity Reaction Status Date / Time morphine Allergy Verified 06/28/25 14:20 [facility] <Mildred Sanders MD - Last Filed: 11/08/25 07:20> [facility] Disclaimer: The information contained in this section may have been updated after the patient was seen, as this information can be updated by other users. Medical History Coronary artery disease Presence of IVC filter History of deep venous thrombosis Abnormal cardiovascular stress test Angina pectoris GERD (gastroesophageal reflux disease) Syncope Chest pain Stage 3 chronic kidney disease Hyperlipidemia Hypertension HIV disease Heat exposure MARGARET (acute kidney injury) Surgical History Stented coronary artery Family History Mother Stroke Social History Smoking Status: Current some day smoker tobacco type: cigarettes packs per day: 1 alcohol intake: former substance use type: marijuana current occupational status: retired Travel in the last 8 weeks?: None household members: spouse and children housing: house caffeine: Yes Have you lived/traveled outside [place] in past 30 days?: No Contact w/someone who lives/traveled outside US past 30 days?: No Exposure to someone with infectious disease in past 14 days?: No Do you have a fever (greater than 100.4 F or 38 C)?: No Have you tested positive for COVID-19?: No Exposed to someone with COVID-19 in past 14 days?: No Do you have a sore throat?: No Do you have a cough?: No Do you have any weakness?: No Do you have any diarrhea?: No Are you experiencing any unusual bleeding?: No Do you have any muscle aches/pain?: No Do you have any abdominal pain?: No Are you experiencing loss of taste or smell?: No Other Medical History Have you received the Flu Vaccine for this season: No Have you received the Pneumonia Vaccine: Yes <Mildred Sanders MD - Last Filed: 11/08/25 07:20> ROS Obtained: Yes Systems reviewed as appropriate & no additional complaints except as documented Per HPI Physical Exam <Mildred Sanders MD - Last Filed: 11/08/25 07:20> General General appearance: alert and in no apparent distress Head Head exam: atraumatic and normocephalic Eye Eye exam: Present PERRL, EOMI and other (Peripheral shi intact on neurologic exam) ENT ENT exam: Present mucous membranes moist Neck Neck exam: Present normal inspection and full ROM; Absent tenderness or lymphadenopathy Chest Chest inspection: Present symmetric chest wall rise; Absent tenderness Respiratory Respiratory exam: Present normal lung sounds bilaterally; Absent respiratory distress, wheezes or stridor Cardiovascular Cardiovascular exam: Present normal rhythm and bradycardia Abdominal Exam Abdominal exam: Present soft and tenderness (Epigastric, suprapubic); Absent distention, guarding or rebound Extremities Exam Extremities exam: Present full ROM Back Exam Back exam: Present tenderness (At the thoracolumbar junction, midline, no deformity or step-off); Absent CVA tenderness (R) or CVA tenderness (L) Neurological Exam Neurological exam: Present alert and other (NIHSS 2 with difficulty following complex commands ([id number]), slight difficulty identifying items, disorientation to time); Absent oriented X3 (Oriented only to self and location,) or motor sensory deficit Psychiatric Psychiatric exam: Present normal affect and normal mood Skin Skin exam: Present warm and dry HEART Score <Mildred Sanders MD - Last Filed: 11/08/25 07:20> HEART Score HEART Score assessment performed?: No <Stalin Montenegro MD - Last Filed: 11/08/25 11:58> HEART Score HEART Score assessment performed?: Yes History (anamnesis): Moderately suspicious ECG: Normal Age: >65 years Risk factors: Atherosclerosis history Troponin: </= normal limit HEART Score: 5 Critical Care <Mildred Sanders MD - Last Filed: 11/08/25 07:20> Critical Care Time Critical Care Time: No <Stalin Montenegro MD - Last Filed: 11/08/25 11:58> Critical Care Time Critical Care Time: Yes Attestation: On 11/08/25, the high probability of a clinically significant, sudden or life threatening deterioration of the following system(s) required my full and direct attention, intervention and personal management. The time I documented below is in addition to time spent performing reported procedures but includes the following listed in this critical care notation. Total Time Total Critical Care Time: 31 Medical Decision Making <Mildred Sanders MD - Last Filed: 11/08/25 07:20> Medical Records Medical records reviewed: Yes I reviewed the patient's medical records. [place] Inquiry Pt receiving controlled substance: No Vital Signs Vital Signs: 11/08/25 06:50 11/08/25 07:00 11/08/25 07:53 Temperature 97.7 F Temperature Source Oral Pulse Rate 52 L 56 L Pulse Rate [Left Radial] 52 L Pulse Rate [Orthostatic Lying Right Radial] Pulse Rate [Orthostatic Sitting Right Radial] Respiratory Rate 12 14 Blood Pressure 177/80 H 164/80 H Blood Pressure [Orthostatic Lying Right Arm] Blood Pressure [Orthostatic Sitting Right Arm] Blood Pressure [Right Arm] 162/75 H Blood Pressure Mean Blood Pressure Mean [Right Arm] 104 Blood Pressure Source [Right Arm] Automatic Cuff Blood Pressure Position [Right Arm] Supine 02 Sat by Pulse Oximetry 100 100 99 Oxygen Delivery Method Room Air Room Air Room Air 11/08/25 08:00 11/08/25 08:30 11/08/25 09:00 Temperature Temperature Source Pulse Rate 55 L 55 L Pulse Rate [Left Radial] Pulse Rate [Orthostatic Lying Right Radial] Pulse Rate [Orthostatic Sitting Right Radial] Respiratory Rate 13 13 Blood Pressure 160/80 H 177/83 H 184/80 H Blood Pressure [Orthostatic Lying Right Arm] Blood Pressure [Orthostatic Sitting Right Arm] Blood Pressure [Right Arm] Blood Pressure Mean Blood Pressure Mean [Right Arm] Blood Pressure Source [Right Arm] Blood Pressure Position [Right Arm] 02 Sat by Pulse Oximetry 100 99 Oxygen Delivery Method Room Air Room Air 11/08/25 09:01 11/08/25 10:01 11/08/25 10:35 Temperature Temperature Source Pulse Rate 56 L Pulse Rate [Left Radial] Pulse Rate [Orthostatic Lying Right Radial] 58 L Pulse Rate [Orthostatic Sitting Right Radial] 60 Respiratory Rate 13 Blood Pressure 184/80 H 146/77 H Blood Pressure [Orthostatic Lying Right Arm] 163/113 H Blood Pressure [Orthostatic Sitting Right Arm] 144/70 H Blood Pressure [Right Arm] Blood Pressure Mean 122 Blood Pressure Mean [Right Arm] Blood Pressure Source [Right Arm] Blood Pressure Position [Right Arm] 02 Sat by Pulse Oximetry 98 100 Oxygen Delivery Method Room Air Room Air 11/08/25 10:38 11/08/25 10:39 11/08/25 11:00 Temperature Temperature Source Pulse Rate 60 67 Pulse Rate [Left Radial] Pulse Rate [Orthostatic Lying Right Radial] Pulse Rate [Orthostatic Sitting Right Radial] Respiratory Rate 14 15 Blood Pressure 161/113 H 144/70 H 179/87 H Blood Pressure [Orthostatic Lying Right Arm] Blood Pressure [Orthostatic Sitting Right Arm] Blood Pressure [Right Arm] Blood Pressure Mean Blood Pressure Mean [Right Arm] Blood Pressure Source [Right Arm] Blood Pressure Position [Right Arm] 02 Sat by Pulse Oximetry 97 99 Oxygen Delivery Method Room Air Room Air Lab Data Labs: Lab Results 11/08/25 06:53: Urine Opiates Screen Negative, Urine Methadone Screen Negative, Ur Barbituates Screen Negative, Ur Phencyclidine Scrn Negative, Ur Amphetamines Screen Negative, U Benzodiazepines Scrn Negative, Urine Cocaine Screen Negative, U Marijuana (THC) Screen Negative 11/08/25 07:04: WBC 6.9, RBC 3.19 L, Hgb 10.4 L, Hct 30.2 L, MCV 94.7 H, MCH 32.6 H, MCHC 34.4, RDW 11.9, Plt Count 137 L, MPV 10.1, Neut % (Auto) 60.6, Lymph % (Auto) 27.0, Bucks % (Auto) 8.4, Eos % (Auto) 3.2, Baso % (Auto) 0.4, Neut # (Auto) 4.2, Lymph # (Auto) 1.9, Bucks # (Auto) 0.6, Eos # (Auto) 0.2, Baso # (Auto) 0.0, PT 11.1, INR 1.00, Sodium 140, Potassium 4.0, Chloride 104, Carbon Dioxide 25, Anion Gap 15.0, BUN 22 H, Creatinine 1.90 H, Estimated Creat Clear 32, Estimated GFR 35 L, Est GFR ( Amer) 42 L, Glucose 101 H, Calcium 8.3 L, Total Bilirubin 0.3, AST 36, ALT 20, Alkaline Phosphatase 77, Troponin I < 0.01, NT-Pro-B Natriuret Pep 172 H, Total Protein 7.1, Albumin 4.1, Globulin 3.0, Albumin/Globulin Ratio 1.4, Plasma/Serum Alcohol < 10, HCV Ab RL w/Rflx PCR Qn Negative, HIV Ag/Ab Combo Qual Positive 11/08/25 08:00: Urine Color Yellow, Urine Appearance Clear, Urine pH 6.5, Ur Specific [place] 1.015, Urine Protein Negative, Urine Glucose (UA) Negative, Urine Ketones Negative, Urine Blood Negative, Urine Nitrate Negative, Urine Bilirubin Negative, Urine Urobilinogen 0.2, Ur Leukocyte Esterase Negative, Urine RBC Occasional, Urine WBC Occasional, Ur Squamous Epith Cells None, Ur Transition Epith Cell 3-5, Urine Bacteria None 11/08/25 10:09: Troponin I < 0.01 11/08/25 10:22: HIV (1&2) Ag & Ab Conf Positive 11/08/25 : Lipase 49 11/08/25 07:04 11/08/25 07:04 Response Orders (Tests/Meds): ED MEDICATIONS Generic Name Dose Route Start Last Admin Trade Name Freq PRN Reason Stop Dose Admin Sodium Chloride 8 ml 11/08/25 08:54 Sodium Chloride 0.9% 10ml Vial IV 12/08/25 08:53 NEEDED PRN dilute pepcid Discontinued Medications Generic Name Dose Route Start Last Admin Trade Name Freq PRN Reason Stop Dose Admin Belladonna Alkaloids 60 ml 11/08/25 08:54 11/08/25 09:08 Belladonna Alkaloids 60 Ml Ml PO 11/08/25 08:55 60 ml ONCE ONE Administration Famotidine 20 mg 11/08/25 08:54 11/08/25 09:08 Famotidine 20mg/2ml Vial IV 11/08/25 08:55 20 mg ONCE ONE Administration Sodium Chloride 1,000 mls @ 999 mls/hr 11/08/25 08:54 11/08/25 10:11 Sod Chlor 0.9% 1000ml Bag IV 11/08/25 09:54 Infused .Q1H1M ONE Infusion Iopamidol 160 ml 11/08/25 07:40 11/08/25 07:45 Iopamidol-370 (76%);100ml Bottle IV 11/08/25 07:41 160 ml ONCE ONE Administration Sodium Chloride 80 ml 11/08/25 07:40 11/08/25 07:45 0.9 % Sodium Chloride 50 Ml Vial IV 11/08/25 07:41 80 ml ONCE ONE Administration Sodium Chloride 10 ml 11/08/25 07:40 11/08/25 07:45 Sodium Chloride 0.9% 10ml Syr (Rad Only) IV 11/08/25 07:41 10 ml ONCE ONE Administration ORDERS Category Date Time Status CT angio abd/pel - TRAUMA Stat Cat Scan 11/08/25 06:[address] angio chest - dissection Stat Cat Scan 11/08/25 06:[address] angio head Stat Cat Scan 11/08/25 06:[address] angio neck Stat Cat Scan 11/08/25 06:[address] head/brain wo con Stat Cat Scan 11/08/25 06:53 Completed XR chest portable Stat Exams 11/08/25 06:42 Completed Complete Blood Count Auto Diff Stat Lab 11/08/25 07:04 Completed Comprehensive Metabolic Panel Stat Lab 11/08/25 07:04 Completed Ethanol [Ethyl Alcohol] Stat Lab 11/08/25 07:04 Completed HIV Combo Retest Routine Lab 11/08/25 10:22 Completed HIV Combo Stat Lab 11/08/25 07:04 Completed Hepatitis C Ab Qual. W/ RFX Stat Lab 11/08/25 07:04 Completed Lipase Stat Lab 11/08/25 Completed NT Pro Brain Natriuretic Pep. Stat Lab 11/08/25 07:04 Completed Prothrombin Time INR Stat Lab 11/08/25 07:04 Completed Troponin I Q3H Lab 11/08/25 10:09 Completed Troponin I Q3H Lab 11/08/25 12:45 Ordered Troponin I Stat Lab 11/08/25 07:04 Completed UDS [Drug Screen,Urine] Stat Lab 11/08/25 06:53 Completed Urinalysis and Microscopic Stat Lab 11/08/25 08:00 Completed MDM Narrative Medical Decision Narrative: In summary, this 75-year-old male with comorbidities described in HPI presents to the emergency department today with multiple complaints including upper and lower abdominal pain, mild headache, vision changes, confusion. On initial evaluation patient is hemodynamically stable though he is mildly bradycardic, afebrile, GCS 14 with slight confusion, NIHSS 2, tenderness in the epigastric and suprapubic regions without rebound or guarding, patient does have tenderness at the thoracolumbar junction in the midline with no deformity or step-off, no external evidence of acute traumatic injury appreciated on exam. Differential diagnosis includes but is not limited to ACS, PE, esophageal spasm, pneumothorax, traumatic injury in the chest, abdomen, pelvis, also considered UTI, urinary retention, kidney dysfunction, electrolyte abnormality, considered intracranial bleed or stroke though I do not have a last known normal for the patient except what he reports which is more than 4-1/2 hours prior to arrival therefore he will not be stroke alerted. Additionally I considered the possibility of pyelonephritis, opportunistic infection given his positive HIV status and unclear history whether he is compliant with his antiretroviral medications or not. Based on these concerns, I ordered cardiac workup, hematologic and serum labs, CT imaging including angiography for which I approved the patient to go emergently prior to labs in case he is having stroke or other acutely dangerous vascular pathology. He does have a history of depressed kidney function, however I believe the risks of missing or delaying identification of stroke or acute intracranial pathology or acute traumatic injury are higher than the risk of contrast-induced nephropathy. ECG personally interpreted demonstrates sinus bradycardia, rate 51, normal axis, normal MO and QTc, no STEMI. Labs, imaging, and additional workup pending at the time of physician handoff. Patient handed off to Dr. Montenegro in stable condition. <Stalin Montenegro MD - Last Filed: 11/08/25 11:58> Vital Signs Vital Signs: 11/08/25 06:50 11/08/25 07:00 11/08/25 07:53 Temperature 97.7 F Temperature Source Oral Pulse Rate 52 L 56 L Pulse Rate [Left Radial] 52 L Pulse Rate [Orthostatic Lying Right Radial] Pulse Rate [Orthostatic Sitting Right Radial] Respiratory Rate 12 14 Blood Pressure 177/80 H 164/80 H Blood Pressure [Orthostatic Lying Right Arm] Blood Pressure [Orthostatic Sitting Right Arm] Blood Pressure [Right Arm] 162/75 H Blood Pressure Mean Blood Pressure Mean [Right Arm] 104 Blood Pressure Source [Right Arm] Automatic Cuff Blood Pressure Position [Right Arm] Supine 02 Sat by Pulse Oximetry 100 100 99 Oxygen Delivery Method Room Air Room Air Room Air 11/08/25 08:00 11/08/25 08:30 11/08/25 09:00 Temperature Temperature Source Pulse Rate 55 L 55 L Pulse Rate [Left Radial] Pulse Rate [Orthostatic Lying Right Radial] Pulse Rate [Orthostatic Sitting Right Radial] Respiratory Rate 13 13 Blood Pressure 160/80 H 177/83 H 184/80 H Blood Pressure [Orthostatic Lying Right Arm] Blood Pressure [Orthostatic Sitting Right Arm] Blood Pressure [Right Arm] Blood Pressure Mean Blood Pressure Mean [Right Arm] Blood Pressure Source [Right Arm] Blood Pressure Position [Right Arm] 02 Sat by Pulse Oximetry 100 99 Oxygen Delivery Method Room Air Room Air 11/08/25 09:01 11/08/25 10:01 11/08/25 10:35 Temperature Temperature Source Pulse Rate 56 L Pulse Rate [Left Radial] Pulse Rate [Orthostatic Lying Right Radial] 58 L Pulse Rate [Orthostatic Sitting Right Radial] 60 Respiratory Rate 13 Blood Pressure 184/80 H 146/77 H Blood Pressure [Orthostatic Lying Right Arm] 163/113 H Blood Pressure [Orthostatic Sitting Right Arm] 144/70 H Blood Pressure [Right Arm] Blood Pressure Mean 122 Blood Pressure Mean [Right Arm] Blood Pressure Source [Right Arm] Blood Pressure Position [Right Arm] 02 Sat by Pulse Oximetry 98 100 Oxygen Delivery Method Room Air Room Air 11/08/25 10:38 11/08/25 10:39 11/08/25 11:00 Temperature Temperature Source Pulse Rate 60 67 Pulse Rate [Left Radial] Pulse Rate [Orthostatic Lying Right Radial] Pulse Rate [Orthostatic Sitting Right Radial] Respiratory Rate 14 15 Blood Pressure 161/113 H 144/70 H 179/87 H Blood Pressure [Orthostatic Lying Right Arm] Blood Pressure [Orthostatic Sitting Right Arm] Blood Pressure [Right Arm] Blood Pressure Mean Blood Pressure Mean [Right Arm] Blood Pressure Source [Right Arm] Blood Pressure Position [Right Arm] 02 Sat by Pulse Oximetry 97 99 Oxygen Delivery Method Room Air Room Air Lab Data Labs: Lab Results 11/08/25 06:53: Urine Opiates Screen Negative, Urine Methadone Screen Negative, Ur Barbituates Screen Negative, Ur Phencyclidine Scrn Negative, Ur Amphetamines Screen Negative, U Benzodiazepines Scrn Negative, Urine Cocaine Screen Negative, U Marijuana (THC) Screen Negative 11/08/25 07:04: WBC 6.9, RBC 3.19 L, Hgb 10.4 L, Hct 30.2 L, MCV 94.7 H, MCH 32.6 H, MCHC 34.4, RDW 11.9, Plt Count 137 L, MPV 10.1, Neut % (Auto) 60.6, Lymph % (Auto) 27.0, Bucks % (Auto) 8.4, Eos % (Auto) 3.2, Baso % (Auto) 0.4, Neut # (Auto) 4.2, Lymph # (Auto) 1.9, Bucks # (Auto) 0.6, Eos # (Auto) 0.2, Baso # (Auto) 0.0, PT 11.1, INR 1.00, Sodium 140, Potassium 4.0, Chloride 104, Carbon Dioxide 25, Anion Gap 15.0, BUN 22 H, Creatinine 1.90 H, Estimated Creat Clear 32, Estimated GFR 35 L, Est GFR ( Amer) 42 L, Glucose 101 H, Calcium 8.3 L, Total Bilirubin 0.3, AST 36, ALT 20, Alkaline Phosphatase 77, Troponin I < 0.01, NT-Pro-B Natriuret Pep 172 H, Total Protein 7.1, Albumin 4.1, Globulin 3.0, Albumin/Globulin Ratio 1.4, Plasma/Serum Alcohol < 10, HCV Ab RL w/Rflx PCR Qn Negative, HIV Ag/Ab Combo Qual Positive 11/08/25 08:00: Urine Color Yellow, Urine Appearance Clear, Urine pH 6.5, Ur Specific [place] 1.015, Urine Protein Negative, Urine Glucose (UA) Negative, Urine Ketones Negative, Urine Blood Negative, Urine Nitrate Negative, Urine Bilirubin Negative, Urine Urobilinogen 0.2, Ur Leukocyte Esterase Negative, Urine RBC Occasional, Urine WBC Occasional, Ur Squamous Epith Cells None, Ur Transition Epith Cell 3-5, Urine Bacteria None 11/08/25 10:09: Troponin I < 0.01 11/08/25 10:22: HIV (1&2) Ag & Ab Conf Positive 11/08/25 : Lipase 49 Response Orders (Tests/Meds): ED MEDICATIONS Generic Name Dose Route Start Last Admin Trade Name Freq PRN Reason Stop Dose Admin Sodium Chloride 8 ml 11/08/25 08:54 Sodium Chloride 0.9% 10ml Vial IV 12/08/25 08:53 NEEDED PRN dilute pepcid Discontinued Medications Generic Name Dose Route Start Last Admin Trade Name Freq PRN Reason Stop Dose Admin Belladonna Alkaloids 60 ml 11/08/25 08:54 11/08/25 09:08 Belladonna Alkaloids 60 Ml Ml PO 11/08/25 08:55 60 ml ONCE ONE Administration Famotidine 20 mg 11/08/25 08:54 11/08/25 09:08 Famotidine 20mg/2ml Vial IV 11/08/25 08:55 20 mg ONCE ONE Administration Sodium Chloride 1,000 mls @ 999 mls/hr 11/08/25 08:54 11/08/25 10:11 Sod Chlor 0.9% 1000ml Bag IV 11/08/25 09:54 Infused .Q1H1M ONE Infusion Iopamidol 160 ml 11/08/25 07:40 11/08/25 07:45 Iopamidol-370 (76%);100ml Bottle IV 11/08/25 07:41 160 ml ONCE ONE Administration Sodium Chloride 80 ml 11/08/25 07:40 11/08/25 07:45 0.9 % Sodium Chloride 50 Ml Vial IV 11/08/25 07:41 80 ml ONCE ONE Administration Sodium Chloride 10 ml 11/08/25 07:40 11/08/25 07:45 Sodium Chloride 0.9% 10ml Syr (Rad Only) IV 11/08/25 07:41 10 ml ONCE ONE Administration ORDERS Category Date Time Status CT angio abd/pel - TRAUMA Stat Cat Scan 11/08/25 06:[address] angio chest - dissection Stat Cat Scan 11/08/25 06:[address] angio head Stat Cat Scan 11/08/25 06:[address] angio neck Stat Cat Scan 11/08/25 06:[address] head/brain wo con Stat Cat Scan 11/08/25 06:53 Completed XR chest portable Stat Exams 11/08/25 06:42 Completed Complete Blood Count Auto Diff Stat Lab 11/08/25 07:04 Completed Comprehensive Metabolic Panel Stat Lab 11/08/25 07:04 Completed Ethanol [Ethyl Alcohol] Stat Lab 11/08/25 07:04 Completed HIV Combo Retest Routine Lab 11/08/25 10:22 Completed HIV Combo Stat Lab 11/08/25 07:04 Completed Hepatitis C Ab Qual. W/ RFX Stat Lab 11/08/25 07:04 Completed Lipase Stat Lab 11/08/25 Completed NT Pro Brain Natriuretic Pep. Stat Lab 11/08/25 07:04 Completed Prothrombin Time INR Stat Lab 11/08/25 07:04 Completed Troponin I Q3H Lab 11/08/25 10:09 Completed Troponin I Q3H Lab 11/08/25 12:45 Ordered Troponin I Stat Lab 11/08/25 07:04 Completed UDS [Drug Screen,Urine] Stat Lab 11/08/25 06:53 Completed Urinalysis and Microscopic Stat Lab 11/08/25 08:00 Completed MDM Narrative Medical Decision Narrative: In summary, this 75-year-old male with comorbidities described in HPI presents to the emergency department today with multiple complaints including upper and lower abdominal pain, mild headache, vision changes, confusion. On initial evaluation patient is hemodynamically stable though he is mildly bradycardic, afebrile, GCS 14 with slight confusion, NIHSS 2, tenderness in the epigastric and suprapubic regions without rebound or guarding, patient does have tenderness at the thoracolumbar junction in the midline with no deformity or step-off, no external evidence of acute traumatic injury appreciated on exam. Differential diagnosis includes but is not limited to ACS, PE, esophageal spasm, pneumothorax, traumatic injury in the chest, abdomen, pelvis, also considered UTI, urinary retention, kidney dysfunction, electrolyte abnormality, considered intracranial bleed or stroke though I do not have a last known normal for the patient except what he reports which is more than 4-1/2 hours prior to arrival therefore he will not be stroke alerted. Additionally I considered the possibility of pyelonephritis, opportunistic infection given his positive HIV status and unclear history whether he is compliant with his antiretroviral medications or not. Based on these concerns, I ordered cardiac workup, hematologic and serum labs, CT imaging including angiography for which I approved the patient to go emergently prior to labs in case he is having stroke or other acutely dangerous vascular pathology. He does have a history of depressed kidney function, however I believe the risks of missing or delaying identification of stroke or acute intracranial pathology or acute traumatic injury are higher than the risk of contrast-induced nephropathy. ECG personally interpreted demonstrates sinus bradycardia, rate 51, normal axis, normal MO and QTc, no STEMI. Labs, imaging, and additional workup pending at the time of physician handoff. Patient handed off to Dr. Montenegro in stable condition. I, Stalin Montenegro MD, took over care of this patient at 0700. Pending CT scans and frequent clinical reassessments. On my initial assessment this morning, patient's mentation was actually quite good. He was alert and oriented and grossly neurologically intact. 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 He also has 60% ICA stenosis. Both of these findings are chronic per the radiologist. 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 On reassessment, after patient's multimodal pain control on arrival, he reports that his epigastric pain has improved. he also remains neurologically intact and alert and oriented. However, when we attempted to get him up to ambulate him, he was unable to do so. He was very unsteady on his feet. Family has arrived at bedside. I have shared with them my concern for the patient's safety, he falls several times a week. I have recommended that patient be admitted to the hospital for physical therapy and workup of his continued syncopal episodes and unsteadiness on his feet. Family would like him admitted for PT as well, however patient is completely alert and oriented x 4 GCS 15 and has a linear thought pattern. He is adamant that he does not want a be admitted to the hospital despite us requesting him to do so multiple times. He reports that he has a wheelchair at home and can get around there without having to stand up. He is able to verbalize back to me the risks of leaving AGAINST MEDICAL ADVICE including worsening of this dural venous sinus thrombosis, stroke, ICH, cardiac arrest, and . He is able to verbalize these risks back to me in the presence of his family as well as other hospital staff. I have told him that he can come back at any time should he change his mind.
--- OUTSIDE RECORDS SUMMARY | 2025-11-08 07:09 | XMS_ITS | Encounter Summary ---
Author Organization [facility] Address [address] [place] [address] Care Team Providers Care Quality Management Nurse Name Role Phone Kayleigh Del Cid MD Primary Care Provider + [phone] Imtiaz Caraballo MD Unavailable Unavailab Scottie Davenport MD Unavailable Gina Quick REFRIGERATION SERVICE INSPECTOR Unavailable [phone] Violet Bryant Unavailable Unavailable Reason for Visit * Reason Comments Med Refill Encounter Details Date Type Department Care Team (Late st Contact Info) Description 10/11/2025 Refill [facility] [address] [place] [phone] Scottie Solo MD [address] [place] [address] [address] [place] [address] Gastroesophageal reflux disease without esophagitis Social History [...] Description 11/16/2025 9:30 AM EST Office Visit [address] [phone] Scottie Solo MD [address] [place] [address] [address] [place] [address] 11/16/2025 10:30 AM EST Office Visit [address] [phone] Kayleigh Del Cid MD [address] [place] [address] [address] [place] [address] 01/11/2026 8:15 AM EST Office Visit [facility] [address] [place] [address] Dirk Hoffman, OD [address] [facility] [address] [place] [address] 02/20/2026 10:10 AM EDT Office Visit [facility] [address] [place] [address] Gina Quick, REFRIGERATION SERVICE INSPECTOR [address] [place] [address] 03/28/2026 1:40 PM EDT Office Visit [facility] [place] [facility] [address] [place] [address] Jose Dtoy MD [address] [place] [address] documented as of this encounter Goals Goal [...] Time PHQ-9 Depression Total Score: 0 09/27/20 25 2:26 PM EDT A fall risk assessment has been complete d for the patient 09/27/2025 2:26 PM EDT A Body Mass Index follow-up plan has been documented for the patient 09/27/2025 2:59 PM EDT documented as of this encounter Care Teams Quality Management Nurse Relationship Specialty Start Date End Date Kayleigh Del Cid MD [address] [place] [address] [address] [place] [address] PCP - General Internal Medicine 04/02/23 Imtiaz Caraballo MD [address] [place] [address] [address] [place] [address] Family Medicine 04/02/23 Scottie Solo MD [address] [facility] [address] [place] [address] Consulting Physician Infectious Diseases 01/09/24 Gina Quick APRN [address] [facility] [address] [place] [address] Nurse Practitioner Urology 08/23/25 Violet Bryant Jelly Filter Tender Manager Night 09/28/25 documented as of this encounter
--- OUTSIDE RECORDS SUMMARY | 2025-11-08 07:09 | XMS_ITS | Encounter Summary ---
Author Organization [facility] Address [address] [place] [address] Care Team Providers Care Director Clinical Data Name Role Phone Magalis Ruiz Unavailable Unavailable Kayleigh Del Cid MD Primary Care Provider [phone] Imtiaz Caraballo MD Unavailable Unavailab Scottie Davenport MD Unavailable Gina Quick SUBWAY TRAIN OPERATOR Unavailable [phone] Violet Bryant Unavailable Unavailable Reason for Visit * Reason Onset Date Comments HCN - Patient Message 09/20/2025 Encounter Details Date Type Department Care Team (Late st Contact Info) Description 09/20/2025 Telephone [facility] [place] [facility] [address] [place] [phone] Jose Doty MD [address] [place] [address] HCN - Patient Message Social History Tobacco Use Types Packs/Day Years Used Date Smoking Tobacco: Former Cigarettes 0 Q uit: 1985 Passive Smoke Exposure: Current Smokeless Tobacco: Never Alcohol Use Standard Drinks/Week Comments Not Currently 0 (1 standard drink = 0.6 oz pur e alcohol) quit March 2021 PHQ-2 Answer Date Recorded Patient Health Questionnaire-2 Score 2 08/23/2025 PHQ-9 Answer Date Recorded Patient Health Questionnaire-9 Score 0 06/06/2025 AUDIT-C Answer Date Recorded Q1: How often do you have a drink containing alcohol? 4 or more times a week 07/15/2025 Q2: How many drinks containi ng alcohol do you have on a typical day when you are drinking? 1 or 2 Q3: How often do you have si x or more drinks on one occasion? Less than monthly 07/15/2025 PHQ-2A Answer Date Recorded Patient Health Questionnaire-2 Score 0 11/10/2023 Sex and Gender Information Value Date Recorded Sex Assigned at Male 12/03/2023 8:18 AM EST Legal Sex Male 8:51 PM EDT Gender Identity Male 12/03/2023 8:18 AM EST Sexual Orientation Not on file documented as of this encounter Miscellaneous Notes * Telephone Encounter - Nathalia Vasquez - 09/20/2025 12:18 PM EDT Same Day Appt/Overbook Request Reason for Call: Patient needs a follow up to get RX refilled. Will run out in 2 weeks. Provider has no openings until January contact number: [phone] (home) Optimal time of day to reach caller: ANYTIME Additional comments/information from caller: Note: Please do not reply to this message. Follow-up communication and further actions as a result of this message need to be communicated with the patient directly, if the patient is not active onMyChart. If the patient is active on MyChart, they will receive notification of the communication/outcome via HappyBoxhart. documented in this encounter Plan of Treatment Upcoming Encounters Date Type Department Care Team (Late st Contact Info) Description 11/16/2025 9:30 AM EST Office Visit [address] [phone] Scottie Solo MD [address] [place] [phone] 11/16/2025 10:30 AM EST Office Visit [address] [address] Kayleigh Del Cid MD [address] [facility] [address] [place] [address] 01/11/2026 8:15 AM EST Office Visit [facility] [address] [place] [address] Dirk Hoffman J, OD [address] [place] [address] 02/20/2026 10:10 AM EDT [facility] [address] [place] [place] [address] Gina Quick, SUBWAY TRAIN OPERATOR [address] [place] [address] [place] [address] 03/28/2026 1:40 PM EDT Office Visit [facility] [place] [facility] [address] [place] [address] Jose Doty MD [address] [place] [address] documented as of this encounter [...] Time PHQ-9 Depression Total Score: 0 06/06/20 10:06 AM EDT A fall risk assessment has been complete d for the patient 08/23/2025 9:41 AM EDT A Body Mass Index follow-up plan has been documented for the patient 08/23/2025 10:04 AM EDT documented as of this encounter Care Teams Director Clinical Data Relationship Specialty Start Date End Date Kayleigh Del Cid MD [address] [facility] [address] [place] [address] PCP - General Internal Medicine 04/02/23 Magalis Ruiz Impregnating Helper Air Brake Tester 07/25/22 09/28/25 Imtiaz Caraballo MD [facility] [address] [place] [address] Family Medicine 04/02/23 Scottie Solo MD [address] [place] [address] [address] [place] [address] Consulting Physician Infectious Diseases 01/09/24 Gina Quick APRN [address] [place] [facility] [address] [place] [address] Nurse Practitioner Urology 08/23/25 Violet Bryant Impregnating Helper Air Brake Tester 09/28/25 documented as of this encounter
--- OUTSIDE RECORDS SUMMARY | 2025-11-08 07:09 | XMS_ITS | Encounter Summary ---
Author Organization [facility] Address [address] [place] [address] Care Team Providers Care Director Of Enterprise Strategy Name Role Phone Kayleigh Del Cid MD Primary Care Provider [phone] Imtiaz Caraballo MD Unavailable Unavailab Scottie Davenport MD Unavailable Gina Quick CUT PRESSMAN Unavailable [phone] Violet Bryant Unavailable Unavailable Reason for Visit * Reason Comments Med Refill Encounter Details Date Type Department Care Team (Late st Contact Info) Description 10/21/2025 Refill [facility] [address] [place] [phone] Scottie Solo MD [address] [place] [address] [address] [place] [address] HIV disease ([facility]) Social History Tobacco Use Types Packs/Day Years [...] encounter Miscellaneous Notes * Telephone Encounter - Ashley Alexis, RN - 10/24/2025 11:02 AM EST Has refills available next appt is 11/16/25 documented in this encounter Plan of Treatment Upcoming Encounters Date Type Department Care Team (Late st Contact Info) Description 11/16/2025 9:30 AM EST Office Visit [place] [phone] Scottie Solo MD [address] [place] [address] 11/16/2025 10:30 AM EST Office Visit [address] [phone] Kayleigh Del Cid MD [address] [place] [address] 01/11/2026 8:15 AM EST Office Visit [facility] [address] [facility] [place] [address] Dirk Hoffman, OD [address] [address] 02/20/2026 10:10 AM EDT Office Visit [facility] [address] [place] [address] Gina Quick, TAQUERIA [address] [place] [address] 03/28/2026 1:40 PM EDT Office Visit [facility] [place] [facility] [address] [place] [address] Jose Doty MD [address] [place] [address] documented as of this encounter [...] this encounter Visit Diagnoses Diagnosis HIV disease ([facility]) Human immunodeficiency virus [HIV] disease documented in [...] of this encounter Care Teams Director Of Enterprise Strategy Relationship Specialty Start Date End Date Kayleigh Del Cid MD [address] [place] [address] [address] [place] [address] PCP - General Internal Medicine 04/02/23 Imtiaz Caraballo MD [address] [place] [address] [address] [place] [address] Family Medicine 04/02/23 Scottie Solo MD [address] [place] [address] [address] [place] [address] Consulting Physician Infectious Diseases 01/09/24 Gina Quick, CUT PRESSMAN [address] [facility] [address] [place] [address] Nurse Practitioner Urology 08/23/25 Violet Bryant Public Health Advisor Environmental Health Safety Engineer 09/28/25 documented as of this encounter
--- OUTSIDE RECORDS SUMMARY | 2025-11-08 07:09 | XMS_ITS | Encounter Summary ---
Author Organization [facility] Address [address] [place] [address] Care Team Providers Care Assistant Store Manager Operations Name Role Phone Magalis Ruiz Unavailable Unavailable Kayleigh Del Cid MD Primary Care Provider + [phone] Imtiaz Caraballo MD Unavailable Unavailab Scottie Davenport MD Unavailable Gina Quick CORPORATE TAX MANAGER Unavailable [phone] Reason for Visit * Reason Onset Date Comments Med Refill 09/15/2025 Encounter Details Date Type Department Care Team (Late st Contact Info) Description 09/15/2025 Refill [facility] [address] [facility] [place] [address] Jose Doty MD [address] [place] [address] Social History Tobacco Use Types Packs/Day Years Used Date Smoking Tobacco: Former Cigarettes 0 Q uit: 1984 Passive Smoke Exposure: Current [...] Description 11/16/2025 9:30 AM EST Office Visit [address] [phone] Scottie Solo MD [address] [place] [address] [address] [place] [address] 11/16/2025 10:30 AM EST Office Visit [address] [address] Kayleigh Del Cid MD [address] [place] [address] [address] [place] [address] 01/11/2026 8:15 AM EST Office Visit [facility] [address] [place] [address] Dirk Hoffman, OD [address] [facility] [address] [place] [address] 02/20/2026 10:10 AM EDT Office Visit [facility] [address] [place] [address] Gina Quick, CORPORATE TAX MANAGER [address] [place] [address] 03/28/2026 1:40 PM EDT Office Visit [facility] [address] [place] [address] Jose Doty MD [address] [place] [address] documented as of this encounter [...] documented as of this encounter Care Teams Assistant Store Manager Operations Relationship Specialty Start Date End Date Kayleigh Del Cid MD [address] [place] [address] [address] [place] [address] PCP - General Internal Medicine 04/02/23 Magalis Ruiz Stereotyper Retort Firer 07/25/22 09/28/25 Imtiaz Caraballo MD [address] [place] [address] [address] [place] [address] Family Medicine 04/02/23 Scottie Solo MD [address] [facility] [address] [place] [address] Consulting Physician Infectious Diseases 01/09/24 Gina Quick APRN [address] [facility] [address] [place] [address] Nurse Practitioner Urology 08/23/25 documented as of this encounter
--- OUTSIDE RECORDS SUMMARY | 2025-11-08 07:09 | XMS_ITS | Encounter Summary ---
Author Organization [facility] Address [address] [place] [address] Care Team Providers Care Cover Machine Operator Name Role Phone Kayleigh Del Cid MD Primary Care Provider [phone] Imtiaz Caraballo MD Unavailable Unavailab Scottie Davenport MD Unavailable Gina Quick MARINE ERECTOR Unavailable [phone] Violet Bryant Unavailable Unavailable Encounter Details Date Type Department Care Team (Late st Contact Info) Description 10/04/2025 Telephone [facility] [address] [place] [address] Jose Doty MD [address] [place] [address] Social History Tobacco Use Types [...] encounter Miscellaneous Notes * Telephone Encounter - Bryant Upton, PharmD - 10/06/2025 10:10 AM EST Thank you for the update, medication was already mailed to patient but I will make notes to inform him not to start med until after next visit * Telephone Encounter - Kym Cabello RN - 10/06/2025 9:58 AM EST Called and left message for Mr Mtz that we are going to hold off on Zetia right now. Cont with his Repatha and cont with atorvastatin. Will reassess and next follow up. Left return follow up phone number to call me back. * Telephone Encounter - Kym Cabello RN - 10/05/2025 1:21 PM EST Last LDL on file is 15. Per Meg we will hold off on Zetia and recheck labs at next visit. * Telephone Encounter - Kym Cabello RN - 10/05/2025 9:27 AM EST Thank you! I will send this info on to Meg for final review. * Telephone Encounter - Bryant Upton, PharmD - 10/05/2025 9:15 AM EST [facility] has [facility] sending him the Repatha, patient stated he has been taking it and the atorvastatin this whole time. He is in need of refills for the Repatha. * Telephone Encounter - Kym Cabello RN - 10/05/2025 8:54 AM EST Called and left message, to clarify if Mr Rodriguez had been consistently taking both the repatha and atorvastatin, before his last set of labs were drawn. If not we will have him take both and get a new set of labs in 6-8 weeks. If he has been on both, we will add the Zetia along with repatha and atorvastatin. * Telephone Encounter - Kym Cabello RN - 10/04/2025 6:52 PM EST I think he has been on both repatha and atorvastatin for the last year. His repatha was written fora year and recently. Looks like he has been on it since at least 2021. Just double checkingthat you don't want to refill it? Thanks! documented in this encounter Plan of Treatment Upcoming Encounters Date Type Department Care Team (Late st Contact Info) Description 11/16/2025 9:30 AM EST Office Visit [address] [phone] Scottie Solo MD [address] [place] [address] [address] [place] [address] 11/16/2025 10:30 AM EST Office Visit [address] [address] Kayleigh Del Cid MD [address] [facility] [address] [place] [address] 01/11/2026 8:15 AM EST Office [facility] [address] [place] [address] Dirk Hoffman, OD [address] [place] [address] 02/20/2026 10:10 AM EDT Office Visit [facility] [address] [place] [address] Gina Quick, MARINE ERECTOR [address] [place] [address] 03/28/2026 1:40 PM EDT Office Visit [facility] [place] [facility] [address] [place] [address] Jose Doty MD [address] [place] [address] documented as of this encounter [...] documented as of this encounter Care Teams Cover Machine Operator Relationship Specialty Start Date End Date Kayleigh Del Cid MD [facility] [address] [place] [address] PCP - General Internal Medicine 04/02/23 Imtiaz Caraballo MD [facility] [address] [place] [address] Family Medicine 04/02/23 Scottie Solo MD [address] [place] [address] [address] [place] [address] Consulting Physician Infectious Diseases 01/09/24 Gina Quick APRN [address] [facility] [address] [place] [address] Nurse Practitioner Urology 08/23/25 Violet Bryant Buccaro Program And Research Coordinator 09/28/25 documented as of this encounter
--- OUTSIDE RECORDS SUMMARY | 2025-11-08 07:10 | XMS_ITS | Encounter Summary ---
Author Organization [facility] Address [address] [place] [address] Care Team Providers Care Executive Officer Special Warfare Team Name Role Phone Magalis Ruiz Unavailable Unavailable Kayleigh Del Cid MD Primary Care Provider [phone] Imtiaz Caraballo MD Unavailable Unavailab Scottie Davenport MD Unavailable Gina Quick WIRE TWISTING MACHINE OPERATOR Unavailable [phone] Violet Bryant Unavailable Unavailable Reason for Visit * Reason Comments Med Refill Encounter Details Date Type Department Care Team (Late st Contact Info) Description 08/21/2023 Refill [facility] [address] [place] [address] Joana Echevarria MD [address] [facility] [address] [place] [address] Stage 3 chronic kidney disease, unspecified whether stage 3a or 3b CKD (CMS/HCC); Arteriosclerosis of coronary artery Social History Tobacco Use Types Packs/Day Years Used Date Smoking Tobacco: Never Cigarettes 0 Qu it: 1984 Smokeless Tobacco: Never Alcohol Use Standard Drinks/Week [...] Description 11/16/2025 9:30 AM EST Office Visit [address] [address] [place] [address] [place] [address] 100 [place] [address] 11/16/2025 10:30 AM EST Office Visit [address] [address] [place] [address] [place] [address] 100 [place] [address] 01/11/2026 8:15 AM EST Office Visit [facility] [address] [place] [address] Dirk Hoffman, OD [address] [place] [address] 02/20/2026 10:10 AM EDT Office Visit [facility] [address], [address] [place] [address] Gina Quick M, WIRE TWISTING MACHINE OPERATOR [address] [place] [address] 03/28/2026 1:40 PM EDT Office Visit [facility] [address] [place] [address] Jose Doty MD [address] [place] [address] documented as of this encounter Goals Goal [...] unspecified whether stage 3a or 3b CKD ([facility]) Arteriosclerosis of coronary artery documented in this [...] documented as of this encounter Care Teams Executive Officer Special Warfare Team Relationship Specialty Start Date End Date Kayleigh Del Cid MD [address] [place] [address] PCP - General Internal Medicine 04/02/23 Magalis Ruiz Sharepoint Application Developer General I Farmworker 07/25/22 09/28/25 Imtiaz Caraballo MD [address] [place] [address] Family Medicine 04/02/23 Scottie Solo MD [address] [place] [address] Consulting Physician Infectious Diseases 01/09/24 Gina Quick APRN [address] [place] [address] Nurse Practitioner Urology 08/23/25 Violet Bryant Sharepoint Application Developer General I Farmworker 09/28/25 documented as of this encounter
--- OUTSIDE RECORDS SUMMARY | 2025-11-08 07:10 | XMS_ITS | Encounter Summary ---
Author Organization [facility] Address [address] [place] [address] Care Team Providers Care Pickle Cutter Name Role Phone Magalis Ruiz Unavailable Unavailable Kayleigh Del Cid MD Primary Care Provider [phone] Imtiaz Caraballo MD Unavailable Unavailab Scottie Davenport MD Unavailable Gina Quick ANIMAL ASSISTED THERAPIST Unavailable [phone] Violet Bryant Unavailable Unavailable Encounter Details Date Type Department Care Team (Late st Contact Info) Description 08/24/2025 Results [facility] [address] [place] [address] Gina Quick, ANIMAL ASSISTED THERAPIST [address] [place] [address] Social History Tobacco Use Types Packs/Day Years [...] drinking? 1 or 2 09/27/2025 2:30 PM SATHISHT Alicia Dickey Q3: How often do you have six or more drinks on one occasion? Monthly 09/27/2025 2:30 PM EDT Alicia Dickey * Over the past 2 weeks, how often have you been bothered by any of the following problems? Question Answer Date of Assessment Author Little interest or pleasure in doing things Not at all 09/27/2025 2:26 PM Alicia Torres Feeling down, depressed, or hopeless Not at all 09/27/2025 2:26 PM Alicia Torres Patient Health Questionnaire -2 Score 0 09/27/2025 2:26 PM SATHISHT Alicia Dickey * Question Answer Date of Assessment Author Trouble falling or staying asleep, or sleeping too much Not at all 09/27/2025 2:26 PM Alicia Torres Feeling tired or having benitez le energy Not at all 09/27/2025 2:26 PM EDT Alicia Dickey Poor appetite or overeating Not at all 09/27/2025 2: 26 PM SATHISHT Alicia Dickey Feeling bad about yourself - [...] way Not at all 09/27/2025 2:26 PM SATHISHT Alicia Dickey Patient Health Questionnaire -9 Score 0 09/27/2025 2:26 PM EDT Alicia Dickey * How difficult have these problems made it for you to do your work, take care of things at home, or get along with other people? Answer Date of Assessment Author Not difficult at all 09/27/2025 2:26 PM EDT Alicia Reyna documented as of this encounter Plan of Treatment Upcoming Encounters Date Type Department Care Team (Late st Contact Info) Description 11/16/2025 9:30 AM EST Office Visit [address] [address] Scottie Solo MD [address] [place] [address] 11/16/2025 10:30 AM EST Office Visit [address] [address] Kayleigh Del Cid MD [address] [place] [address] 01/11/2026 8:15 AM EST Office Visit [facility] [address] [place] [address] Dirk Hoffman, OD [address] [place] [address] 02/20/2026 10:10 AM EDT Office Visit [facility] [address] [place] [address] Gina Quick, ANIMAL ASSISTED THERAPIST [address] [place] [address] 03/28/2026 1:40 PM EDT Office Visit [facility] [address] [place] [address] Jose Doty MD [address] [place] [address] documented as of this encounter [...] documented as of this encounter Care Teams Pickle Cutter Relationship Specialty Start Date End Date Kayleigh Del Cid MD [address] [place] [address] PCP - General Internal Medicine 04/02/23 Magalis Ruiz Physical Therapy Aide Radiology Resident 07/25/22 09/28/25 Imtiaz Caraballo MD [address] [place] [address] Family Medicine 04/02/23 Scottie Solo MD [address] [place] [phone] Consulting Physician Infectious Diseases 01/09/24 Gina Quick, ANIMAL ASSISTED THERAPIST [address] [facility] [place] [address] Nurse Practitioner Urology 08/23/25 Violet Bryant Physical Therapy Aide Radiology Resident 09/28/25 documented as of this encounter
--- OUTSIDE RECORDS SUMMARY | 2025-11-08 07:10 | XMS_ITS | Encounter Summary ---
Author Organization [facility] Address [address] [place] [address] Care Team Providers Care Master Carpenter Name Role Phone Santiago Vital Unavailable Unavailable Kayleigh Del Cid MD Primary Care Provider [phone] Magalis Ruiz Unavailable Unavailable Kayleigh Del Cid MD Primary Care Provider [phone] Imtiaz Caraballo MD Unavailable Unavailab Scottie Davenport MD Unavailable Gina Quick STRAIGHT TOOTH GEAR GENERATOR OPERATOR Unavailable [phone] Violet Bryant Unavailable Unavailable Reason for Visit * Reason Comments Med Refill Encounter Details Date Type Department Care Team (Late st Contact Info) Description 09/03/2021 Refill [facility] [address] [place] [address] Kayleigh Del Cid MD [address] [facility] [address] [place] [address] Social History Tobacco Use Types Packs/Day Years Used Date Smoking Tobacco: Former Cigarettes 0 Q uit: 1985 Smokeless Tobacco: Never Alcohol [...] Description 11/16/2025 9:30 AM EST Office Visit [address] [address] Scottie Solo MD [address] [place] [address] [address] [place] [address] 11/16/2025 10:30 AM EST Office Visit [address] [address] Kayleigh Del Cid MD [address] [place] [address] [address] [place] [address] 01/11/2026 8:15 AM EST Office Visit [facility] [address] [place] [address] Dirk Hoffman, OD [address] [place] [address] 02/20/2026 10:10 AM EDT Office Visit [facility] [address] [place] [address] Gina Quick M, STRAIGHT TOOTH GEAR GENERATOR OPERATOR [address] [place] [address] 03/28/2026 1:40 PM EDT Office Visit [facility] [address] [place] [address] Jose Doty MD [address] [place] [address] documented as of this encounter Goals Goal [...] documented as of this encounter Care Teams Master Carpenter Relationship Specialty Start Date End Date Kayleigh Del Cid MD [address] [place] [address] PCP - General 04/13/21 04/01/23 Kayleigh Del Cid MD [address] [place] [phone] PCP - General Internal Medicine 04/02/23 Santiago Vital [address] 06/01/10 07/25/22 Magalis Ruiz Planned Giving Officer Manufacturing Quality Technician 07/25/22 09/28/25 Imtiaz Caraballo MD Family Medicine 04/02/23 Scottie Solo MD [address] [facility] [address] [place] [address] Consulting Physician Infectious Diseases 01/09/24 Gina Quick APRN [address] [facility] [address] [place] [address] Nurse Practitioner Urology 08/23/25 Violet Bryant Planned Giving Officer Manufacturing Quality Technician 09/28/25 documented as of this encounter
--- OUTSIDE RECORDS SUMMARY | 2025-11-08 07:10 | XMS_ITS | Encounter Summary ---
Author Organization [facility] Address [address] [place] [address] Care Team Providers Care Restrictive Preparation Operator Name Role Phone Magalis Ruiz Unavailable Unavailable Kayleigh Del Cid MD Primary Care Provider [phone] Imtiaz Caraballo MD Unavailable Unavailab Scottie Davenport MD Unavailable Gina Quick SUPERVISOR AREA Unavailable [phone] Violet Bryant Unavailable Unavailable Reason for Visit * Reason Comments Case Management Encounter Details Date Type Department Care Team (Late st Contact Info) Description 09/28/2025 Patient Outreach [facility] [address] [place] [address] Violet Bryant Case Management Social History Tobacco Use Types Packs/Day Years [...] encounter Miscellaneous Notes * Progress Notes - Violet Bryant - 09/28/2025 10:13 AM EDT P: MCM reassignment D: Updated client from previous MCM to new MCM A: Updated assigned MCM in [employer], [employer], and emailed Bettye Dale to update KAD[facility]. Duration: 15 minutes documented in this encounter Plan of Treatment Upcoming Encounters Date Type Department Care Team (Late st Contact Info) Description 11/16/2025 9:30 AM EST Office Visit [address] [phone] Scottie Solo MD [address] [place] [address] [address] [place] 11/16/2025 10:30 AM EST Office Visit [address] [phone] Kayleigh Del Cid MD [address] [place] [address] [address] [place] 01/11/2026 8:15 AM EST Office Visit [facility] [address] [place] [address] Dirk Hoffman, OD [address] [facility] [address] [place] [address] 02/20/2026 10:10 AM EDT Office Visit [facility] [address] [place] [address] Gina Quick M, SUPERVISOR AREA [address] [place] [address] 03/28/2026 1:40 PM EDT Office Visit [facility] [address] [place] [address] Jose Doty MD [address] [place] [address] documented as of this encounter [...] documented as of this encounter Care Teams Restrictive Preparation Operator Relationship Specialty Start Date End Date Kayleigh Del Cid MD [address] [facility] [address] [place] [address] PCP - General Internal Medicine 04/02/23 Magalis Ruiz Physician Representative Supervisor Stripping 07/25/22 09/28/25 Imtiaz Caraballo MD [address] [place] [address] [address] [place] [address] Family Medicine 04/02/23 Scottie Solo MD [address] [place] [address] [address] [place] [address] Consulting Physician Infectious Diseases 01/09/24 Gina Quick APRN [address] [facility] [address] [place] [address] Nurse Practitioner Urology 08/23/25 Violet Bryant Physician Representative Supervisor Stripping 09/28/25 documented as of this encounter
--- OUTSIDE RECORDS SUMMARY | 2025-11-08 07:10 | XMS_ITS | Encounter Summary ---
Author Organization [facility] Address [address] [place] [address] Care Team Providers Care Documentation Specialist Name Role Phone Magalis Ruiz Unavailable Unavailable Kayleigh Del Cid MD Primary Care Provider [phone] Imtiaz Caraballo MD Unavailable Unavailab cSottie Davenport MD Unavailable Gina Quick ASTHMA EDUCATOR Unavailable Violet Bryant Unavailable Unavailable Reason for Visit * Reason Onset Date Comments HCN Clinical Concern/Question 09/26/2025 Encounter Details Date Type Department Care Team (Late st Contact Info) Description 09/26/2025 Telephone [facility] [address] [place] [phone] Jose Doty MD [address] [place] [address] HCN Clinical Concern/Question Social History Tobacco Use Types Packs/Day Years [...] things Not at all 09/27/2025 2:26 PM SATHISHT Alicia Dickey Feeling down, depressed, or hopeless [...] encounter Miscellaneous Notes * Telephone Encounter - Vicki Bryant - 09/26/2025 9:53 AM EDT Clinical Concern/Question Reason for Call: Pt is asking to schedule an appt deloris so he can obtain refills. Best contact number: [phone] Ok to leave a Optimal time of day to reach caller: Additional comments/information from caller: Note: Please do not reply to this message. Follow-up communication and further actions as a result of this message need to be communicated with the patient directly, if the patient is not active onMyChart. If the patient is active on MyChart, they will receive notification of the communication/outcome via [employer]. documented in this encounter Plan of Treatment Upcoming Encounters Date Type Department Care Team (Late st Contact Info) Description 11/16/2025 9:30 AM EST Office Visit [place] [address] [address] [place] [address] [place] [address] [address] [place] [address] 11/16/2025 10:30 AM EST Office Visit [address] [address] Kayleigh Del Cid MD [address] [place] [address] [address] [place] [address] 01/11/2026 8:15 AM EST Office Visit [facility] [address] [place] [address] Dirk Hoffman, OD [address] [place] [address] 02/20/2026 10:10 AM EDT Office Visit [facility] [address] [place] [address] Gina Quick M, ASTHMA EDUCATOR [address] [place] [address] 03/28/2026 1:40 PM EDT Office Visit [facility] [address] [place] [address] Jose Doty MD [address] [place] [address] documented as of this encounter [...] Transportation On track(2024 11:44 AM EDT) No CastroCece Note: Gas cards for travel to clinic [...] documented as of this encounter Care Teams Documentation Specialist Relationship Specialty Start Date End Date Kayleigh Del Cid MD [address] [place] [address] [address] [place] PCP - General Internal Medicine 04/02/23 Magalis Ruiz Grading Machine Feeder Horseradish Grinder 07/25/22 09/28/25 Imtiaz Caraballo MD [address] [place] [address] 100 [place] Family Medicine 04/02/23 Scottie Solo MD [address] [place] [address] [address] [place], [place] Consulting Physician Infectious Diseases 01/09/24 Gina Quick [facility]N [address] [address] [place] [address] Nurse Practitioner Urology 08/23/25 Violet Bryant Grading Machine Feeder Horseradish Grinder 09/28/25 documented as of this encounter
--- OUTSIDE RECORDS SUMMARY | 2025-11-08 07:10 | XMS_ITS | Clinical Summary ---
Author Organization [facility] [place] [address] Care Team Providers Care Stock Cutter Name Role Phone Unavailable Primary Care Provider [...] Zoster (1 of 2) 2001 COVID-19 Vaccine (2024-2 6 season) 2025 Influenza Vaccine (#1) 2025 Hepatitis B Vaccine Aged Out No longe r eligible based on patient's age to complete this topic Meningococcal B Vaccine Aged Out No l onger eligible based on patient's age to complete this topic
--- OUTSIDE RECORDS SUMMARY | 2025-11-08 07:10 | XMS_ITS | Encounter Summary ---
Author Organization [facility] Address [address] [place] [address] Care Team Providers Care Transformer Repairer Name Role Phone Magalis Ruiz Unavailable Unavailable Kayleigh Del Cid MD Primary Care Provider [phone] Imtiaz Caraballo MD Unavailable Unavailab Scottie Davenport MD Unavailable Gina Quick BAND NAILER Unavailable [phone] Violet Bryant Unavailable Unavailable Reason for Visit * Reason Comments Med Refill Encounter Details Date Type Department Care Team (Late st Contact Info) Description 05/26/[address] [address] [place] [address] [place] [address] [address] [place] [address] HIV disease ([facility]) Social History Tobacco Use Types Packs/Day Years [...] Description 11/16/2025 9:30 AM EST Office Visit [address] [address] Scottie Solo MD [address] [facility] [address] [place] [address] 11/16/2025 10:30 AM EST Office Visit [address] [address] [place] [address] [place] [address] 100 [place] [address] 01/11/2026 8:15 AM EST Office Visit [facility] [address] [place] [address] Dirk Hoffman, OD [address] [place] [address] 02/20/2026 10:10 AM EDT Office Visit [facility] [address] [place] [address] Gina Quick M, BAND NAILER [address] [place] [address] 03/28/2026 1:40 PM EDT Office Visit [facility] [address] [place] [address] Jose Doty MD [address] [place] [address] documented as of this encounter Goals Goal [...] documented as of this encounter Care Teams Transformer Repairer Relationship Specialty Start Date End Date Kayleigh Del Cid MD [address] [place] [address] PCP - General Internal Medicine 04/02/23 Magalis Ruiz Cook Frozen Dessert Tire Setter 07/25/22 09/28/25 Imtiaz Caraballo MD [address] [place] [address] Family Medicine 04/02/23 Scottie Solo MD [address] [place] [address] Consulting Physician Infectious Diseases 01/09/24 Gina Quick APRN [address] [place] [address] Nurse Practitioner Urology 08/23/25 Violet Bryant Cook Frozen Dessert Tire Setter 09/28/25 documented as of this encounter
--- OUTSIDE RECORDS SUMMARY | 2025-11-08 07:10 | XMS_ITS | Data Portability ---
Author Organization [employer] [facility] Address [address] [place] [address] Assessment Encounter Date Assessment Date Assessment LastModified by Organization Details LastModified Time 05/13/2024 05/13/2024 Steroid as prescribed. Patient is already taking narcotic pain medication as prescribed by pain clinic for chronic lower back pain. Reviewed UpToDate and no dosage adjustment necessary for decreased renal function. Insect bites of left lower extremity - may apply topical hydrocortisone x 5-7 days. Instructed to wash hands after use and to only apply a thin layer. We discussed wellness and that labs are due, he will schedule a follow up with PCP for annual medicare wellness visit. Not available 05/13/2024 15:01:21 09/01/2024 09/01/2024 Injection as outlined per plan below. No NSAIDS d/t CKD. May continue his current prescribed pain medication. Encouraged patient to notify his pain management MD of the three acute flares of Right LBP in the last three months or so. Follow up if no improvement or worsening and as needed. Not available 09/01/2024 10:04:54 12/15/2024 12/15/2024 Patient advised to go to ER. Several falls and episodic weakness, RLE swelling and elevated BP today. He is agreeable. He is going to discuss with his and decide where he will go to ER. He was advised to call an ambulance should he become dizzy, weak, have chest pain or for any other worsening symptoms. He voiced understanding. I did offer ambulance in clinic, but he declined. Not available 12/18/2024 09:09:26 Plan of Treatment Reminders Order Date Submit Date Provider Last Modified By Organization Details Last Modified Time Details Appointments None recorded. Lab None recorded. Referral None recorded. Procedures None recorded. Surgeries None recorded. Imaging XR, thoracic spine, 2 view 2024 [facility], [address] [place] [address], [address], 5 15:52:59 XR, lumbosacral spine, 2 or 3 view [address], [address], 5 15:53:47 XR, tibia + fibula, 2 view [address], [address], 4 15:49:41 US, duplex, venous, lower extremity 2023 024 [facility], [address] [place], [place], [address], 4 14:22:18 Medication Orders cyclobenzap rine 10 mg tablet 2024 025 MOOSE PASS [id number] [facility], [address] [place], [address], 5 14:19:58 Kenalog 40 mg/mL suspension for injection 2024 025 [email or web address] Not available 5 14:04:19 Depo-Medrol 80 mg/mL suspension for injection 2023 024 [email or web address] [facility], [address] [place], [address], 5 17:02:34 prednisone 10 mg tablets in a dose pack 2023 024 [facility], [address] [place], [address], 09:40:05 hydrocortis one 2.5 % topical cream 2023 024 [facility], [address] [place], [address], 14:52:45 Patient TargetsNo targets recorded. Patient Instructions Encounter Date Encounter Id Patient Instructions Last Modified By Organization Details Last Modified Time 09/01/2024 [id number] weight managemen t education Not available 09/01/2024 09:54:50 learning about healthy weight Not available 09/01/2024 09:54:50 12/15/2024 [id number] shortness of breath: care instructions Not available 12/18/2024 09:08:50 04/01/2025 [id number] back pain: care instructions [email or web address] Not available 04/01/2025 13:34:22 Reason for Referral None Reported. Results Created Date Observation Date Name Description Value Unit Range Abnormal Flag Note LastModifiedBy Organization Detail LastModifiedTime 06/22/20 24 XR, tibia + fibul a, 2 view No observ ation record ed. [email or web address] [address], [address], 06/23/2024 09:57:39 06/23/20 24 US, duple x, venou s, lower extre mity No observ ation record ed. [email or web address] [facility] [address] [place], [place], [address], 06/25/2024 16:23:13 04/01/20 25 XR, thora cic spine , 2 view No observ ation record ed. [email or web address] [address], [address], 04/04/2025 14:21:41 04/01/20 25 XR, lumbo sacra l spine , 2 or 3 view No observ ation record ed. [email or web address] [address], [place], [address], 04/04/2025 14:21:41 Result Notes None recorded. Problems Name Problem SNOMED Code Status Onset Date Resolution Date Notes Provider Name and Address Organization Details Recorded Time Diarrhea 17408058 Active 2020 Problem Code: R19.7; Problem Code Type: ICD-10; Not Available [facility] 2 21:58:56 Nausea 439276349 Completed 202105/13/2024 Problem Code: R11.0; Problem Code Type: ICD-10; Tanika Stark APRN [address] [place] [address], [address] , [employer] 4 15:00:19 Nausea and vomiting 53018319 Completed 202105/13/2024 Problem Code: R11.2; Problem Code Type: ICD-10; Tanika Stark APRN [address] [place] [address], [address] , [employer] 4 15:00:23 Chronic low back pain 389469952 Active 2022 Tanika Stark APRN [address] [place] [address], [address] , [employer] 4 14:59:55 Pain of right calf 08754578545 67093 Completed 202205/13/2024 Tanika Stark APRN [address] [place] [address], [address] , [employer] 4 15:00:04 Gastroes ophageal reflux disease without esophagi tis 215727327 Active 2023 Tanika Stark APRN [address] [place], [address] , [employer] 4 14:59:57 Acute back pain with sciatica 617317916 Active 2023 Tanika Stark APRN [address] [place] [address], [address] , [place] [employer] 4 14:59:53 Insect bite - wound 125175751 Completed 202309/01/2024 Tanika Stark APRN [address] [place] [address], [address] , [place] [employer] 4 10:02:24 Human immunode ficiency virus infectio n 60347229 Active 2023 Tanika Stark APRN [address] [place] [address], [address] , [place] [employer] 4 10:01:23 Chronic kidney disease 817654849 Active 2023 Tanika Stark APRN [address] [place] [address], [address] , [place] [employer] 4 10:02:38 Coronary arterios clerosis 91782401 Active 2023 Tanika Stark APRN [address] [place] [address], [address] , [place] [employer] 4 10:02:44 Edema of right lower limb 147967782 Active 2024 Tanika Stark APRN [address] [place] [address], [address] , [employer] 5 09:09:38 Pain in right lower limb 190411467 Active 2024 Tanika Stark APRN [address] [place] [address], [address] , [place] [employer] 5 09:09:41 Dyspnea 614408661 Active 2024 Tanika Stark APRN [address] [place] [address], [address] , [place] [employer] 5 09:09:37 Recurren t falls 664869727 Active 2024 Tanika Stark APRN [address] [place] [address], [address] , [employer] 5 09:09:43 Hyperten sive disorder 85545915 Active 2024 Tanika Stark, [employer] [address] [place], [address] , [employer] 5 09:09:40 Backache 134513553 Active 2024 NIYAH GERBER [employer] [address] [place], [address] , [employer] 5 13:31:51 Backache with radiatin g pain 088248506 Active 2024 NIYAH GERBER [address], [address] , [employer] 5 13:32:03 Problem Notes None recorded. Procedures Surgical History Date Name Laterality Status Provider Name and Address Organization Details Recorded Time placement of stent in coronary artery completed Not Available [facility] 08/06/2022 22:56:14 Imaging Results None recorded. Procedure Notes None recorded. Medical Equipment None Reported. Allergies Allergen ID Allergen Name Allergen Category Reaction Reaction Severity Criticality Documentation Date Start Date Code Code System Note Provider Name and Address Organization Details Recorded Time 34778 morphine medicatio n Not available Not available Not available 08/06/2022 7052 RxNorm Not Available [facility] 2 22:56:18 Medications Name Sig Start Date Stop Date Status Note LastModified by Organization Details LastModified Time multivitami n tablet 1 daily 2020 active Not Available Not Available Not Avai lable cyclobenzap rine 10 mg tablet Take 1 tablet every 8 hours by oral route. 2024 active Not Available Not Available Not Avai lable atorvastati n 40 mg tablet take 1 tablet (40 mg) by oral route once daily 09/02 completed Not Available Not Available Not Available atorvastati n 80 mg tablet Take 1 tablet every day by oral route for 90 days. active Not Available Not Available No t Available doxycycline hyclate 100 mg capsule Take 1 capsule twice a day by oral route for 7 days. 03/31 completed Not Available Not Available Not Available loperamide 2 mg capsule take 2 capsules (4 mg) by oral route after 1st loose stool, followed by 1 capsule after each subsequen t loose stool not to exceed 16 mg/day 2021 active Not Available Not Available Not Avai lable metoprolol succinate ER 50 mg tablet,exte nded release 24 hr active Not Available Not Available Not Available hydrocodone 5 mg-acetamin ophen 325 mg tablet 03/31 completed Not Available Not Available Not Available ondansetron HCl 4 mg tablet take 1 tablet (4 mg) by oral route every 4 hours prn N/V 09/02 completed Not Available Not Available Not Available clopidogrel 75 mg tablet Take 1 tablet every day by oral route for 90 days. active Not Available Not Available No t Available Depo-Medrol 80 mg/mL suspension for injection Take 1 mL by injection route. 12/15 completed Not Available Not Available Not Available pantoprazol e 20 mg tablet,regi yed release Take 1 tablet twice a day by oral route. active Not Available Not Available No t Available Kenalog 40 mg/mL suspension for injection IM x 1 dose 2024 active Not Available Not Available Not Avai lable prednisone 10 mg tablets in a dose pack Take as directed 09/01 completed Not Available Not Available Not Available nortriptyli ne 25 mg capsule take 1 capsule (25 mg) by oral route [facility] 09/02 completed Not Available Not Available Not Available famotidine 20 mg tablet active Not Available Not Available Not Available tamsulosin 0.4 mg capsule take 1 capsule (0.4 mg) by oral route once daily 1/2 hour following the same meal each day active Not Available Not Available No t Available hydrocodone 7.5 mg-acetamin ophen 325 mg tablet TAKE 1 TABLET 3 TIMES EACH DAY active Not Available Not Available No t Available lisinopril 10 mg tablet take 1 tablet (10 mg) by oral route once daily 09/02 completed Not Available Not Available Not Available gabapentin 300 mg capsule TAKE 1 CAPSULE 3 TIMES EACH DAY active Not Available Not Available No t Available aspirin 81 mg chewable tablet chew 1 tablet (81 mg) by oral route once daily 2020 active Not Available Not Available Not Avai lable hydrocortis one 2.5 % topical cream APPLY A THIN LAYER TO THE AFFECTED AREA(S) BY TOPICAL ROUTE 2 TIMES PER DAY active Not Available Not Available No t Available lisinopril 5 mg tablet Take 1 tablet every day by oral route for 90 days. active Not Available Not Available No t Available metoprolol succinate ER 25 mg tablet,exte nded release 24 hr take 1 tablet (25 mg) by oral route once daily 12/15 completed Not Available Not Available Not Available ondansetron 4 mg disintegrat ing tablet place 1 tablet (4 mg) and place on top of the tongue where it will dissolve, then swallow by transling ual route q 4 -6 hours PRN N/V 09/02 completed Not Available Not Available Not Available lamivudine 150 mg tablet take 1 tablet (150 mg) by oral route daily active Not Available Not Available No t Available dicyclomine 10 mg capsule take 1 capsule (10 mg) by oral route 3 times per day prn abdominal cramping 09/02 completed Not Available Not Available Not Available naproxen 500 mg tablet 09/02 completed Not Available Not Available Not Available nortriptyli ne 50 mg capsule Take 1 capsule every day by oral route for 90 days. active Not Available Not Available No t Available amoxicillin 500 mg-potassiu m clavulanate 125 mg tablet 08/19 completed Not Available Not Available Not Available abacavir 300 mg tablet take 1 tablet (300 mg) by oral route 2 times per day active Not Available Not Available No t Available escitalopra m 20 mg tablet take 1 tablet (20 mg) by oral route once daily active Not Available Not Available No t Available bupropion HCl XL 300 mg 24 hr tablet, extended release take 1 tablet (300 mg) by oral route once daily active Not Available Not Available No t Available pregabalin 25 mg capsule Take by oral route for 15 days. 09/17 completed Not Available Not Available Not Available pregabalin 50 mg capsule TAKE 1 CAPSULE 2 TIMES EACH DAY NEEDED active Not Available Not Available No t Available diclofenac 1 % topical gel 09/17 completed Not Available Not Available Not Available ticagrelor 90 mg tablet take 1 tablet (90 mg) by oral route 2 times per day 09/02 completed Not Available Not Available Not Available Tivicay 50 mg tablet take 1 tablet (50 mg) by oral route daily active Not Available Not Available No t Available Repatha SureClick 140 mg/mL subcutaneou s pen injector Inject 140 mg every 2 weeks by sub-q route for 84 days. active Not Available Not Available No t Available Vitals Date Recorded Body height Body mass index (BMI) Body weight Body temperature Heart rate Oxygen saturation Systolic And Diastolic Systolic And Diastolic Systolic And Diastolic Systolic And Diastolic Provider Name and Address Organization Details Last Updated DateTime 5 162.56 cm 28.4 kg/m2 73522.1 4 g 98.4 [degF] 70 /min 92 % 209/93 mm[Hg] 200/93 mm[Hg] 190/88 mm[Hg] 184/86 mm[Hg] Dionne Donovan [employer]. 5 17:24:12 Date Recorded Body height Body mass index (BMI) Body weight Heart rate Oxygen saturation Systolic And Diastolic Provider Name and Address Organization Details Last Updated DateTime 5 162.56 cm 24.4 kg/m2 53382.1 2 g 91 /min 95 % 138/67 mm[Hg] Judith Maravilla [employer] [employer]. 5 13:18:07 Date Recorded Body height Body mass index (BMI) Body weight Body temperature Heart rate Oxygen saturation Systolic And Diastolic Provider Name and Address Organization Details Last Updated DateTime 4 162.56 cm 25.6 kg/m2 60562.9 8 g 97.9 [degF] 66 /min 93 % 135/67 mm[Hg] Tarah Young [employer], [employer]. 4 14:29:49 Date Recorded Body height Body mass index (BMI) Body weight Body temperature Heart rate Oxygen saturation Systolic And Diastolic Provider Name and Address Organization Details Last Updated DateTime 4 162.56 cm 26.2 kg/m2 32100.2 g 98 [degF] 80 /min 93 % 136/39 mm[Hg] JACEY STOCKTON [employer]. 4 13:51:25 Date Recorded Body height Body mass index (BMI) Body weight Heart rate Oxygen saturation Systolic And Diastolic Provider Name and Address Organization Details Last Updated DateTime 4 162.56 cm 26.4 kg/m2 31174.2 2 g 61 /min 99 % 137/68 mm[Hg] Dionne Donovan [employer]. 4 09:37:57 Social History Question Answer Notes LastModified by Organizat ion Details LastModified Time Tobacco Smoking Status Never Smoker Tarah cool [employer]. 08/19/2023 11:34:13 Do You Have An Advance Directive? No [email or web address] Information n ot available 09/17/2023 Is Your Home Air Conditioned? Yes Information not available 08/19/2023 Do You Wear A Helmet When Biking? No Information not available 08/19/2023 Are You Blind Or Do You Have Difficulty Seeing? No Information n ot available 08/19/2023 In The 14 Days Before Symptom Onset, Have You Had Close Contact With A Laboratory-confirm ed COVID-19 While That Case Was Ill? No Information n ot available 08/19/2023 In The 14 Days Before Symptom Onset, Have You Had Close Contact With A Person Who Is Under Investigation For COVID-19 While That Person Was Ill? No Information not available 08/19/2023 Have You Been To An Area Known To Be High Risk For COVID-19? No Information not available 08/19/2023 Are You Deaf Or Do You Have Serious Difficulty Hearing? No Information not available 08/19/2023 What Type Of Diet Are You Following? REGULAR Information n ot available 08/19/2023 How Many Days Of Moderate To Strenuous Exercise, Like A Brisk Walk, Did You Do In The Last 7 Days? 4 Information not available 08/19/2023 Have There Been Any Changes To Your Family Or Social Situation? No Information no t available 08/19/2023 Are There Any Guns Present In Your Home? No Information not available 08/19/2023 Which Of Your Hands Is Dominant? Left Information n ot available 08/19/2023 What Is Your Home Situation? Other Information not available 08/19/2023 Do You Have A Medical Power Of Traffic Agent? No [email or web address] Information not available 09/17/2023 What Was The Date Of Your Most Recent Tobacco Screening? 04/01/2025 [email or web address] Information not available 04/01/2025 Do You Have Any Pets? Yes Information not available 08/19/2023 Do You Use Protection During Sex? Usually Information not available 08/19/2023 What Is Your Relationship Status? Information not available 08/19/2023 Have You Repeated Any Grades? No Information not available 08/19/2023 Do You Use Your Seat Belt Or Car Seat Routinely? Yes Information not available 08/19/2023 Are You Sexually Active? Yes Information not available 08/19/2023 Do You Have Smoke And Carbon Monoxide Detectors In Your Home? No Information not available 08/19/2023 Are You Passively Exposed To Smoke? Yes Information no t available 08/19/2023 Are There Any Smokers In Your House? Yes Information not available 08/19/2023 Do You Participate In Social Media? Yes Information not available 09/01/2024 What Types Of Sporting Activities Do You Participate In? Basketball Information not available 08/19/2023 Do You Use Sunscreen Routinely? No Information not available 08/19/2023 Has Tobacco Cessation Counseling Been Provided? No Information not available 09/17/2023 Have You Recently Traveled Abroad? No Information not available 08/19/2023 Do You Have Difficulty Walking Or Climbing Stairs? Yes Information not available 08/19/2023 Do You Have Any Dietary Restrictions? No Information not available 09/01/2024 Sex: Male Functional Status Question Answer Note LastModified by Organizat ion Details LastModified Time Do you use any illicit or recreational drugs? No Information not available 09/02/2023 Do you or have you ever used any other forms of tobacco or nicotine? No Information not available 09/02/2023 What is your level of alcohol consumption? None Information not available 09/02/2023 Are you currently employed? No Information not available 08/19/2023 Do you have transportation difficulties? No [email or web address] Information not available 09/01/2024 Are you able to walk independently without assistance or assistive devices? [email or web address] Information not available 08/19/2023 Do you have difficulty doing errands alone? No Information not available 08/19/2023 Are you able to care for yourself independently? Yes Information not available 08/19/2023 Do you have difficulty dressing, bathing, grooming, or toileting? No Information not available 08/19/2023 What is your exercise level? Occasional Information not available 08/19/2023 Mental Status Question Answer Note LastModified by Organizat ion Details LastModified Time Do you feel stressed (tense, restless, nervous, or anxious, or unable to sleep at night)? [id number] [email or web address] Information not available 09/01/2024 Do you have difficulty concentrating, remembering or making decisions? Yes Information no t available 08/19/2023 Are you or have you been involved with bullying? No Information not available 08/19/2023 Family History Relationship Description Onset Age of this Age Resolved Age Notes LastModified by Organization Details LastModified Time Father No current problems or disability Not available 12:53:51 Mother No current problems or disability [email or web address] Not available 12:53:51 Medical History Condition Response Coronary Artery Disease Y Hospitalizations N Acid Reflux (GERD) Y Emergency room visit since last appointm ent. N Substance Abuse Y High Cholesterol Y Heart Disease Y Hypertension Y Kidney Disease Y Immunizations Vaccine Type Date Status Note Provider Nam e and Address Organization Details Recorded Time COVID-19, mRNA, LNP-S, PF, 100 mcg/0.5mL dose or 50 mcg/0.25mL dose completed Tarah cool, [employer] 09/10/2023 15:32:53 COVID-19, mRNA, LNP-S, PF, 100 mcg/0.5mL dose or 50 mcg/0.25mL dose 1 completed Tarah Hector null, [employer] 09/10/2023 15:32:53 zoster recombinant 0 completed Tarah [place] null, [employer] 09/10/2023 15:32:53 zoster recombinant 0 completed Tarah [place] null, [employer] 09/10/2023 15:32:53 Influenza, high-dose, quadrivalent, PF 0 completed Tarah Hector null, [employer] 09/10/2023 15:32:53 Influenza, high-dose, quadrivalent, PF 1 completed Tarah [place] null, [employer] 09/10/2023 15:32:53 COVID-19, mRNA, LNP-S, PF, 100 mcg/0.5mL dose or 50 mcg/0.25mL dose 1 completed Tarah [place] null, [employer] 09/10/2023 15:32:53 Pneumococcal conjugate PCV20, polysaccharide [id number] conjugate, adjuvant, PF 3 completed Tarah Hector null, [employer] 09/10/2023 15:32:53 COVID-19, mRNA, LNP-S, bivalent, PF, 50 mcg/0.5 mL or 25mcg/0.25 mL dose 2 completed Tarah [place] null, [employer] 09/10/2023 15:32:53 Tdap 0 completed Tarah [place] null, [employer] 09/10/2023 15:32:53 Influenza, split virus, trivalent, preservative 0 completed Tarah Hector null, [employer] 09/10/2023 15:32:53 Hep B, adult 4 completed Tarah [place] null, [employer] 09/10/2023 15:32:53 meningococcal MCV4P 8 completed Tarah Hector null, [employer] 09/10/2023 15:32:53 influenza, seasonal, intradermal, preservative free 4 completed Tarah [place] null, [employer] 09/10/2023 15:32:53 Influenza, split virus, quadrivalent, PF 2 completed Tarah Hector null, [employer] 09/10/2023 15:32:53 Influenza, split virus, quadrivalent, PF 9 completed Tarah [place] null, [employer] 09/10/2023 15:32:53 Influenza, split virus, quadrivalent, PF 8 completed Tarah [place] null, [employer] 09/10/2023 15:32:53 Influenza, high-dose, quadrivalent, PF 4 completed Tarah [place] null, [employer] 05/13/2024 14:29:56 COVID-19, mRNA, LNP-S, PF, ambreen-sucrose, 30 mcg/0.3 mL 4 completed Tarah [place] null, [employer] 05/13/2024 14:29:56 Meningococcal MCV4O 4 completed Tarah [place] null, [employer] 05/13/2024 14:29:56 RSV, recombinant, protein subunit RSVpreF, adjuvant reconstituted, 0.5 mL, PF 4 completed Not Available [facility] 04/01/2025 12:48:02 Influenza, high-dose, trivalent, PF 4 completed Not Available [facility] 04/01/2025 12:48:02 COVID-19, mRNA, LNP-S, PF, ambreen-sucrose, 30 mcg/0.3 mL 4 completed Not Available [facility] 04/01/2025 12:48:02 Past Encounters Encounter ID Performer Location Encounter Start Date Encounter Closed Date Diagnosis/Indication Diagnosis SNOMED-CT Code Diagnosis ICD10 Code Diagnosis IMO Codes Diagnosis Note [id number] Alicia Rene [place] [id number] 08/19/2023 10:50:41 08/19/2023 11:52:30 Dyspnea 006082859 R06.00 Crushing i njury of chest 92933022 S28.0XXA Body mass index 20-24 - normal 321150335 Z68.23 [id number] Alicia Rene [place] [address] 09/02/2023 13:55:47 09/02/2023 14:55:12 Fatigue 47967152 R53.83 Hyperlipidemia 37589764 E78.5 Vitamin D deficiency 347 49856 E55.9 Vitamin B deficiency 479 11348 E53.9 Pain in ri ght lower limb 922739494 M79.604 Body mass index 20-24 - normal 748809014 Z68.23 [id number] GINNY BOSTON [place] [address] 09/10/2023 15:14:31 09/10/2023 17:50:39 Chronic low back pain 174251584 M54.50 [id number] GINNY BOSTON [place] [address] 0 09/17/2023 12:48:17 09/17/2023 14:00:10 Pain of right calf 9010449277 168403 M79.264 [id number] GINNY BOSTON [place] [address] 0 03/18/2024 10:47:27 03/18/2024 11:33:22 Tick bite 63091059 W57.XXXA [id number] [place] [address] 03/31/2024 16:09:13 03/31/2024 16:32:38 Gastroesophageal reflux disease without esophagitis 348417759 K21.9 [id number] Tanika Stark [place] [id number] 0 05/13/2024 14:18:02 05/13/2024 15:04:24 Insect bite - wound [id number] T14.8XXA Acute back pain with sciatica [id number] M54.41 [id number] Yoly Mota [place] [id number] 0 06/22/2024 13:37:26 06/22/2024 14:29:11 Pain in right lower limb 770885927 M79.604 Kyrie filter (Right)Obt ain x ray and rule out dvt. sherie FLANAGAN. Body mass index 25-29 - overweight 790598025 Z68.26 [id number] Tanika Stark [place] [address] 0 09/01/2024 09:07:26 09/01/2024 10:21:44 Body mass index 25-29 - overweight 882969128 Z68.26 Acute back pain with sciatica 451775081 M54.41 Chronic ki dney disease 397131644 N18.9 [id number] Tanika Stark [place] [id number] 0 12/15/2024 16:50:52 12/20/2024 15:22:11 Edema of right lower limb 759578517 R60.0 Pain in ri ght lower limb 778776547 M79.604 Dyspnea 786070457 R06.00 Recurrent falls 99709998 2 R29.6 Hypertensive disorder 38 [id number] I10 [id number] [place] [address] 04/01/2025 12:44:43 04/01/2025 14:48:07 Backache with radiating pain 613485488 M54.9 [id number] Rest. Alternate ice and heat for comfort.x- rays of the thoracic and lumbar spines obtained.M aintain movement as able. If loss of bowel or bladder function or changes in sensation, report immediatel y to the emergency department . Return for follow up if no improvment . Health Concerns Section Related Observation LastModified by Organization Detai ls LastModified Time None Recorded Concern Status LastModified by Organization Details LastModified Time None Recorded Advance Directives Directive N: Payers Insurance Date Sequence Insurance Name Policy Number Policy Lee Covered Member ID Lee Member ID Guarantor Name 04/07/2025 1 [employer] (MEDICARE REPLACEMENT/AD VANTAGE - PPO) Rk [employer] [id number] Rk [employer] [place] 04/01/2025 1 [place]MED[place] HMO) [id number] Rk E Jennifer [id number] Rk [employer] [place] 04/01/2025 [place] [employer] [facility] [id number] Rk E [employer] [place] [id number] Rk [employer] 08/19/2023 1 *SELF PAY* [place] Jennifer 09/01/2024 1 *SELF PAY* [place] Jennifer 04/01/2025 1 [employer] (MEDICARE REPLACEMENT/AD VANTAGE - PPO) [id number] Rk E Jennifer [id number] Rk Jennifer 04/01/2025 1 [place] [id number] Rk E [employer] [place] [id number] Rk Jennifer Notes Date Note Type Note Provider Name and Address Organization Details Recorded Time 4 text/html Patient presents for right hip pain and complaint of dry skin. Right hip pain and right lower back pain. Started 4 days ago. 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 No trauma or fall. States pain is going down his leg at times. No numbness or tingling. No saddle pain or numbness. No b/b changes. Pain is worse when he lays down flat - had to sleep in the recliner last night. Having some muscle spasms in lower back. No swelling that he has noticed. No groin pain.Also has complaint of dry itching skin on bilateral lower extremities, L>R. Started today. He was working outside this morning. Tanika Stark APRN [address] [place], [address], [employer], [employer]. 05/13/2024 15:02:17 4 text/html Musculoskeletal PainReported by PatientHPIFor quality, patient reportssharp. For severity, patient reportsworsening. For location, patient reportspain is not radiating(right lower lateral leg). For duration, patient reportspresent for 1-6 months. For timing, patient reportsintermittent. For context, patient reportsunusual activity. For alleviating factors, patient reportsrestandchanging position. For aggravating factors, patient reportsmovement/positioning . For associated symptoms, patient reportsno fever,no weak limbs,no tingling,no numbness of the legs/feet, andno incontinence. For adls affected, patient reportswalking. For prior tests/treatments, patient reportsused medication for back painandhad evaluations by back specialist.ROS as noted in the HPI Pt has chronic LBP and sees a pain clinic. He says he was seen in [facility] emergency department approx 6 weeks ago for back pain and was given a shot in my back in the ER. He states since that injection he has had pain in right lateral lower leg with edema that worsens with weight bearing. he denies injury. He has PAD with hx kyrie filter placed in right femoral for hx DVT. He also has HIV, CAD and cannot take NSAIDS due to CKD. Yoly Mota APRN [address] [place], [address], [employer], [employer]. 06/22/2024 14:16:37 4 text/html Patient presents for evaluation of LBP radiating to right lower extremity. He does have chronic lower back pain and treats with pain management for that. He does have history of CKD and CAD. States yesterday AM when he woke up he had a flare of pain that started. He is in a WC today but he normally only uses a cane for ambulation. States this is worse than his normal lower back pain. 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 No fall or trauma. Tanika Stark APRN [address] [place], [address], [employer], [employer]. 09/01/2024 10:40:32 5 text/html Patient presents for evaluation of right lower extremity swelling and pain. States it started two days ago. States no erythema. He has fallen several times. Today he fell when he was in [place]. States he felt weak all over and then fell to the ground. THis has happened 6-7 times in the last 3-4 weeks.Since his fall this afternoon he has been short of breath. The swelling started before the fall. Tanika Stark APRN [address] [place], [address], [employer] 12/18/2024 09:09:45 5 text/html ROS as noted in the HPI Patient presents a few days after throwing sheet rock with new onset back pain unlike his chronic back pain. Describes pain as sharp, states he feels like I threw it out . Denies numbness, tingling, loss of sensation, bruising. Is able to ambulate with cane but not without pain. No changes in bowel or bladder ability. NIYAH GERBER APRN [address] [place], [address], [employer], [employer]. 04/01/2025 14:46:00
--- OUTSIDE RECORDS SUMMARY | 2025-11-08 07:10 | XMS_ITS | Encounter Summary ---
Author Organization [facility] Address [address] [place] [address] Care Team Providers Care Client Care Consultant Name Role Phone Magalis Ruiz Unavailable Unavailable Kayleigh Del Cid MD Primary Care Provider [phone] Imtiaz Caraballo MD Unavailable Unavailab Scottie Davenport MD Unavailable Gina Quick APRN Unavailable [phone] Encounter Details Date Type Department Care Team (Latest Contact Info) Description 09/27/2025 Travel Social History Tobacco Use Types Packs/Day [...] much Not at all 09/27/2025 2:26 PM EDT Alicia Dickey Feeling tired or having benitez [...] difficult at all 09/27/2025 2:26 PM EDT Alciia Reyna documented as of this encounter Plan of Treatment Upcoming Encounters Date Type Department Care Team (Late st Contact Info) Description 11/16/2025 9:30 AM EST Office Visit [address] [address] Scottie Solo MD [address] [place] [address] [address] [place] [address] 11/16/2025 10:30 AM EST Office Visit [address] [address] Kayleigh Del Cid MD [address] [place] [address] [address] [place] [address] 01/11/2026 8:15 AM EST Office Visit [facility] [address] [place] [address] Dirk Hoffman, OD [address] [place] [address] 02/20/2026 10:10 AM EDT Office Visit [facility] [address] [place] [phone] Gina Quick M, [employer] [address] [place] [id number] 03/28/2026 1:40 PM EDT Office Visit [facility] [address] [place] [address] Jose Doty MD [address] [place] [address] documented as of this encounter [...] documented as of this encounter Care Teams Client Care Consultant Relationship Specialty Start Date End Date Kayleigh Del Cid MD [address] [facility] [address] [place] [phone] PCP - General Internal Medicine 04/02/23 Magalis Ruiz Senior Stereo Compiler Team Lead Plating Equipment Tender 07/25/22 09/28/25 Imtiaz Caraballo MD [address] [facility] [address] [place] [address] Family Medicine 04/02/23 Scottie Solo MD [address] [facility] [address] [place] [id number] Consulting Physician Infectious Diseases 01/09/24 Gina Quick APRN [address] [place] [address] Nurse Practitioner Urology 08/23/25 documented as of this encounter
--- OUTSIDE RECORDS SUMMARY | 2025-11-08 07:10 | XMS_ITS | Clinical Summary ---
Author Organization [facility] Address [address] [place] [address] Care Team Providers Care Field Associate Name Role Phone Kayleigh Del Cid MD Primary Care Provider [phone] Imtiaz Caraballo MD Unavailable Unavailab Scottie Davenport MD Unavailable Gina Quick APRN Unavailable [phone] Violet Bryant Unavailable Unavailable Allergies Active Allergy Reactions Criticality Noted Date Comments Morphine Other - please docum ent in the comment field,Nausea High 06/01/2010 Medications loperamide (Imodium) 2 MG capsule 2021 Active HYDROcodone-acetaminop hen (Avis) 7.5-325 MG tablet Take 1 tablet (7.5 mg of hydrocodone) by mouth in the morning and 1 tablet (7.5 mg of hydrocodone) before bedtime. Active methylPREDNISolone acetate (DEPO-Medrol) 80 MG/ML injection 2023 Active pregabalin (Lyrica) 50 MG capsuleIndications:Beena n of right calf Take 1 capsule (50 mg) by mouth 2 (two) times a day if needed (sciatica pain). 60 capsule 2 2023 Active diclofenac (Voltaren) 1 % topical gelIndications:Arthrit is Place 1-2 g on the skin if needed (pain). Use sparingly on affected area 150 g 11 2023 Active tadalafil (Cialis) 10 MG tabletIndications:Vasc [...] FOR PAIN. 30 patch 1 2023 Active Additional Information Patient not taking.Reported on 09/27/2025 gabapentin (Neurontin) 300 MG capsule 2023 Active spironolactone-hydroCH LOROthiazide (Aldactazide) 25-25 MG tablet Take 1 tablet (25 mg) by mouth daily. 30 tablet 11 2024 Active Additional Information Patient not taking.Reported on 09/27/2025 acetaminophen (Tylenol) 325 MG tabletIndications:HIV disease (CMS/HCC) [...] or split. 90 tablet 3 2024 Active abacavir (Ziagen) 300 MG tabletIndications:HIV disease (CMS/HCC) Take 2 tablets by mouth daily. 60 tablet 5 2024 Active lamiVUDine (Epivir) 150 MG tabletIndications:HIV disease (CMS/HCC) Take 1 tablet by mouth daily. 30 tablet 5 2024 Active dolutegravir (Tivicay) 50 MG tabletIndications:HIV disease (CMS/HCC) Take 1 tablet by mouth daily. 30 tablet 5 2024 Active diclofenac (Voltaren) 1 % topical gel Place 4 g on the skin 4 times a day. Apply topically to bilateral knees 350 g 2 2024 Active Additional Information Patient not taking.Reported on 09/27/2025 finasteride (Proscar) 5 MG tabletIndications:Nato gn prostatic hyperplasia without lower urinary tract symptoms Take 1 tablet by mouth daily. Do not crush, chew, or split. 90 tablet 3 08/23 Active atorvastatin (Lipitor) 80 MG tabletIndications:Pure hypercholesterolemia Take 1 tablet by mouth nightly. 90 tablet 3 2024 Active clopidogrel (Plavix) 75 MG tabletIndications:Adeola riosclerosis of coronary artery Take 1 tablet by mouth daily. 90 tablet 3 2024 Active metoprolol succinate XL (Toprol-XL) 50 MG 24 hr tabletIndications:Adeola riosclerosis of coronary artery Take 1 tablet by mouth daily. Pt must keep upcoming appt for additional refills. 30 tablet 2024 Active Evolocumab (Repatha SureClick) 140 MG/ML solution auto-injector autoinjector Inject 1 mL under the skin every 14 days. Inject 140mg every two weeks subcutaneously . 6 mL 3 2024 Active Multiple Vitamins-Minerals (One Daily Mens Health) tabletIndications:Heal thcare maintenance TAKE 1 TABLET BY MOUTH DAILY AT LEAST 6 HOURS APART FORM DOLUTEGRAVIR 100 tablet 2 2024 Active nortriptyline (Pamelor) 50 MG capsuleIndications:Dep ression, unspecified depression type,Neuropathy TAKE 1 CAPSULE BY MOUTH EVERY NIGHT 90 capsule 2024 Active tamsulosin (Flomax) 0.4 MG 24 hr capsuleIndications:Parish ign prostatic hyperplasia without lower urinary tract symptoms TAKE 1 CAPSULE BY MOUTH EVERY NIGHT 90 capsule 2024 Active pantoprazole (ProtoNix) 20 MG EC tabletIndications:Fredo roesophageal reflux disease without esophagitis TAKE 1 TABLET BY MOUTH ONCE A DAY BEFORE BREAKFAST. DO NOT CRUSH, CHEW OR SPLIT. 90 tablet 2024 Active escitalopram (Lexapro) 20 MG tabletIndications:Depr ession, unspecified depression type TAKE 1 TABLET BY MOUTH EVERY DAY 90 tablet 2024 Active famotidine (Pepcid) 20 MG tabletIndications:Fredo roesophageal reflux disease without esophagitis TAKE 1 TABLET BY MOUTH TWO TIMES A DAY NEEDED FOR HEARTBURN 180 tablet 2024 Active escitalopram (Lexapro) 20 MG tabletIndications:Depr ession, unspecified depression type TAKE 1 TABLET BY MOUTH EVERY DAY 90 tablet 3 10/20 Discontinued nortriptyline (Pamelor) 50 MG capsuleIndications:Dep ression, unspecified depression type,Neuropathy Take 1 capsule (50 mg) by mouth every night. 90 capsule 3 10/20 Discontinued pantoprazole (ProtoNix) 20 MG EC tabletIndications:Fredo roesophageal reflux disease without esophagitis Take 1 tablet (20 mg) by mouth 1 (one) time each day before breakfast. Do not crush, chew, or split. 90 tablet 3 10/20 Discontinued tamsulosin (Flomax) 0.4 MG 24 hr capsuleIndications:Parish ign prostatic hyperplasia without lower urinary tract symptoms Take 1 capsule (0.4 mg) by mouth every night. 90 capsule 3 10/20 Discontinued Multiple Vitamins-Minerals (One Daily Mens Health) tablet TAKE 1 TABLET BY MOUTH DAILY AT LEAST 6 HOURS APART FORM DOLUTEGRAVIR 90 tablet 3 10/20 Discontinued famotidine (Pepcid) 20 MG tabletIndications:Fredo roesophageal reflux disease without esophagitis TAKE 1 TABLET BY MOUTH TWO TIMES A DAY NEEDED FOR HEARTBURN 180 tablet 10/12 Discontinued Active Problems Problem Noted Date Diagnosed [...] exposure 07/30/2024 Presence of IVC filter 07/30/2024 Acute back pain with sciatica 05/13/2024 Insect [...] mild chronic small vessel disease -MOCA 08/24 15/30, repeat today improved to 20/30 -he did [...] time Nonrheumatic aortic valve stenosis 07/21/2023 Nausea 02/04/2022 Overview (06/17/2025): Problem Code: R11.0; [...] -continue dietary calcium and weight bearing exercise Trigger finger of left hand 06/01/2021 Assessment [...] Meningococcal MCV4P 09/24/2017, 02/04/2018 Moderna COVID-19 Vaccine (Flat Surfacer) 12+ years 01/25/2021, 02/22/2021, 07/26/2021 Moderna COVID-19 [...] Meningococcal MCV4P 09/24/2017, 02/04/2018 Moderna COVID-19 Vaccine (Flat Surfacer) 12+ years 01/25/2021, 02/22/2021, 07/26/2021 Moderna COVID-19 [...] Meningococcal MCV4P 09/24/2017, 02/04/2018 Moderna COVID-19 Vaccine (Flat Surfacer) 12+ years 01/25/2021, 02/22/2021, 07/26/2021 Moderna COVID-19 [...] Meningococcal MCV4P 09/24/2017, 02/04/2018 Moderna COVID-19 Vaccine (Flat Surfacer) 12+ years 01/25/2021, 02/22/2021, 07/26/2021 Moderna COVID-19 [...] Meningococcal MCV4P 09/24/2017, 02/04/2018 Moderna COVID-19 Vaccine (Flat Surfacer) 12+ 01/25/2021, 02/22/2021, 07/26/2021 PPD Skin Test [...] audiology at this time, maybe in future Arteriosclerosis of coronary artery 11/12/2019 Overview (06/01/2021): - LAD stent placed in Oct 2019 at [facility] Assessment & Plan (05/25/2025 4:24 PM [...] (06/01/2021 12:59 PM EDT): - following with [facility] - recently switched from brilinta/ASA to [...] (acute kidney injury) 07/30/2024 Syncope 07/30/2024 11/22/2024 Chest pain 07/13/2024 08/21/2025 Right hip pain 06/30/2024 08/21/2025 Assessment & Plan (09/17/2024 3:27 PM EDT): [...] symptoms Acute back pain with sciatica 05/13/2024 08/06/2024 [...] good capillary refill and absence of discoloration Nausea and vomiting 02/04/2022 08/21/20 25 Overview (07/30/2024): Problem Code: R11.0; Problem Code Type: ICD-10; Problem Code: R11.0; Problem Code Type: ICD-10; Problem Code: R11.2; Problem Code Type: ICD-10; Problem Code: R11.2; Problem Code Type: ICD-10; Problem Code: R11.2; Problem Code Type: ICD-10; Problem Code: R11.0; Problem Code Type: ICD-10; Arthritis 06/01/2021 08/21/2025 Assessment & Plan (01/01/2022 2:01 PM EST): [...] EDT): -continue capsaicin and diclofenac gel PRN Diarrhea 04/18/2021 08/21/2025 Overview (07/30/2024): Problem Code: R19.7; Problem Code Type: ICD-10; Problem Code: R19.7; Problem Code Type: ICD-10; Myocardial infarction 10/22/20192020 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 Syphilis 02/14/2016 11/22/2024 Alcohol abuse, episodic 07/21/2015 07/0 01/2021 Encounters Date Type Department Care Team Description 10/21/2025 Refill [facility] [address] [place] [phone] Scottie Solo MD HIV disease ([facility] 10/11/2025 Refill [facility] [address] [place] [phone] Scottie Solo MD Gastroesophageal reflux disease without esophagitis 10/11/[address] [address] Kayleigh Del Cid MD Healthcare maintenance (Primary Dx); Depression, unspecified depression type; Neuropathy; Benign prostatic hyperplasia without lower urinary tract symptoms; Gastroesophageal reflux disease without esophagitis 10/06/2025 Orders Only [facility] [address] [facility] [phone] Kym Cabello RN 10/04/2025 Telephone [facility] [address] [place] [address] Jose Doty MD 09/28/2025 Patient Outreach [facility] [address] [place] [phone] Violet Bryant Case Management 09/27/2025 1:40 PM EDT Office Visit [facility] [address] [phone] Jose Doty MD Arteriosclerosis of coronary artery (Primary Dx); Primary hypertension; Pure hypercholesterolemia 09/27/2025 Travel 09/26/2025 Telephone [facility] [address] [place] [address] Jose Doty MD HCN Clinical Concern/Question 09/20/2025 Telephone [facility] [address] [place] [address] Jose Doty MD HCN - Patient Message 09/15/2025 Refill [facility] [address] [place] [address] Jose Doty MD 08/31/2025 Telephone [facility] [address] [place] [address] Mike Harley, EILEEN 08/24/2025 Results Follow-Up [facility] [address] [place] [address] Gina Quick APRN 08/23/2025 9:50 AM EDT Office Visit [facility] [address] [place] [address] Gina Quick, FORMING PROCESS WORKER Benign prostatic hyperplasia without lower urinary tract symptoms (Primary Dx); Prostate cancer screening 08/23/2025 Travel from Last 3 Months Immunizations Immunization Administration [...] Pulse 64 09/27/2025 2:29 PM EDT Temperature 36.3 C (97.4 F) 08/23/2025 9:37 AM EDT Respiratory Rate 16 08/23/2025 9:37 AM EDT Oxygen Saturation 98% 09/27/2025 2:29 PM EDT Inhaled Oxygen Concentration - - Weight 63.5 kg (139 lb 15.9 oz) 09/27/2025 2:29 PM EDT Height 165.1 cm (5' 5 ) 09/27/2025 2:29 PM EDT Body Mass Index 23.3 09/27/2025 2:29 PM EDT Plan of Treatment Upcoming Encounters Date Type Department Care Team (Late st Contact Info) Description 11/16/2025 9:30 AM EST Office Visit [address] [phone] Scottie Solo MD [address] [place] [address] 11/16/2025 10:30 AM EST Office Visit [address] [phone] Kayleigh Del Cid MD [address] [place] [address] 01/11/2026 8:15 AM EST Office Visit [facility] [address] [facility] [place] [address] Dirk Hoffman, OD [address] [place] [address] 02/20/2026 10:10 AM EDT Office Visit [facility] [address] [place] [address] Noapurva, Gina M, FORMING PROCESS WORKER [address] [place] [address] 03/28/2026 1:40 PM EDT Office Visit [facility] [address] [place] [address] Jose Doty MD [address] [place] [phone] Health Maintenance Due Date Last Done Comments Dental Prophylaxis 1950 Dental X-Ray: Bitewings 1950 [facility]-Medicare Annual Wellness (AWV) 1950 [facility]-/Child/Adol SDOH Screenings 1950 [facility]- SDOH Screenings 1969 [facility]-Adult SDOH Screenings 1969 CT Colonography 1996 FIT-DNA 1996 FIT 1996 FOBT 1996 Sigmoidoscopy 1996 [facility]-Hepatitis A Vaccines (4 of 4 - Hep A Twinrix risk 4-dose series) 10/18/2011 02/28/2011, 11/19/2010, 10/18/2010 [facility]-Abdominal Aortic Aneurysm (AAA) Screening 2016 Dental Oral Exam 08/08/2024 02/05/2024 [id number] Vaccine ( season) 2025 09/08/2024, 01/05/2024, 08/14/2022, Additional history exists [facility]-Influenza Vaccine (#1) 08/01/202508/06, 01/05/2024, 08/14/2022, Additional history exists Colonoscopy 08/21/2026 08/21/2016 [facility]-Colorectal Cancer Screening 08/21/2026 [facility]-Depression Screening 09/27/2026 09/27/2025, 09/01 Dental X-Ray: Full Mouth 02/05/2027 02/05/2024 [facility]-DTaP,Tdap,and Td Vaccines (5 - Td or Tdap) 05/16/2035 05/16/2025, 02/27/2015, 10/18/2010, Additional history exists [facility]-Zoster Vaccines Completed 11/27/2020, [facility]-Pneumococcal Vaccine: 50+ Years Completed 03/19/2023, 04/24/2016, 01/29/2013, Additional history exists [facility]-RSV Vaccine: 60+ Years or Completed 05/05/2024 [facility]-Hepatitis C Screening Completed 05/09/2025, HPV Vaccines (No Doses Required) Completed [facility]-HIB Vaccines Aged Out No longer e [...] Procedure Name Priority Date/Time Associated Diagnosis Comments PROSTATE CANCER SCREEN, SERUM Routine 08/23/2025 10:46 AM EDT Prostate cancer screening POC US BLADDER SCAN FOR VOLUME Routine 08/23/2025 9:45 AM EDT Benign prostatic hyperplasia without lower urinary tract symptoms HEPATITIS C ANTIBODY - ED W/REFLEX TO HCV QUANT PCR STAT 05/09/2025 2:40 PM EDT PANORAMIC RADIOGRAPHIC IMAGE Routine 02/05/2024 1:00 PM EST Encounter for dental examination COMPREHENSIVE ORAL EVALUATION - NEW OR ESTABLISHED PATIENT Routine 02/05/2024 1:00 PM EST Encounter for dental examination COLONOSCOPY 08/21/2016 from Last 3 Months or Most Recently Relevant to Health Maintenance Results * PSA Screen (08/23/2025 10:46 AM EDT) Prostate Cancer Screen, Serum 0.33 0.00 - 6.50 ng/mL 08/23/2025 4:23 PM EDT [facility] Blood Venous blood specimen / Unknown Venipuncture / Unknown 08/23/2025 10:46 AM EDT 08/23/2025 10:49 AM EDT Narrative [facility] - 08/23/2025 4:23 PM EDT Performed by Amos electrochemiluminescent immunoassay which is standardized against the PSA [place] Reference Standard (WHO 96/670). Results obtained with different test methods or kits cannot be used interchangeably. Gina Quick APRN LAB BLOOD ORDERABLES Final Result [facility] [address] [place] [address] * POC US Bladder Volume (08/23/2025 9:45 AM EDT) Urine, Volume 166 mL IMAGING Anatomical Region Laterality Modality Other Gina Quick APRN IMG POINT OF CARE ULTRASOUN D Final Result * Hepatitis C Antibody - ED W/Reflex to HCV Quant PCR (05/09/2025 2:40 PM EDT) Hepatitis C Antibody Negative Negative 05/09/2025 3:37 PM EDT [facility] Blood Venous blood specimen / Unknown Venipuncture / Unknown 05/09/2025 2:40 PM EDT 05/09/2025 2:55 PM EDT us Jesus Archer MD LAB BLOOD ORDERABLES Andreea l [facility] [address] [id number] * COLONOSCOPY (08/21/2016) Anatomical Region Laterality Modality Endoscopy Narrative 08/21/2016 Ordered by an unspecified provider. Historical Provider GI PROCEDURE ORDERABLES Andreea l Result from Last 3 Months or Most Recently Relevant to Health Maintenance Additional Health Concerns Active Problems Noted Date Diagnosed Date Treatment Adherence 07/05/2021 Transportation 07/05/2021 Insurance INFECTIOUS DISEASE PROGRAM INFECTIOUS DISEASE PROGRAM [employer] [place] MEDICARE Advance Directives * Full Code (Latest Code Status on File) Date Activated Date Inactivated Comments 12/03/2023 12:14 AM 12/03/2023 6:49 PM Question Answer Comments Patient has decision-making capacity? Yes Care Teams Field Associate Relationship Specialty Start Date End Date Kayleigh Del Cid MD [address] [place] [address] [address] [place], [place] PCP - General Internal Medicine 04/02/23 Imtiaz Caraballo MD [address] [place] [address] [address] [place], [place] Family Medicine 04/02/23 Scottie Solo MD [address] [place] [address] [address] [place], [place] Consulting Physician Infectious Diseases 01/09/24 Gina Quick APRN [address] [place] [phone] Nurse Practitioner Urology 08/23/25 Violet Bryant Tray Setter Pier Worker 09/28/25
--- OUTSIDE RECORDS SUMMARY | 2025-11-08 07:10 | XMS_ITS | Encounter Summary ---
Author Organization [facility] Address [address] [place] [address] Care Team Providers Care Systems Administrator Name Role Phone Kayleigh Del Cid MD Primary Care Provider [phone] Imtiaz Caraballo MD Unavailable Unavailab Scottie Davenport MD Unavailable Gina Quick DOCUMENT ADVISOR Unavailable Violet Bryant Unavailable Unavailable Encounter Details Date Type Department Care Team (Late st Contact Info) Description 10/06/2025 Orders Only [facility] [address] [place] [address] Kym Cabello, MONET [facility] None Social History Tobacco Use Types Packs/Day Years [...] Description 11/16/2025 9:30 AM EST Office Visit [address] [phone] Scottie Solo MD [address] [place] [address] [address] [place] [address] 11/16/2025 10:30 AM EST Office Visit [address] [phone] [place] [address] [place] [address] [address] [place] [address] 01/11/2026 8:15 AM EST Office Visit [facility] [address] [place] [address] Dirk Hoffman, OD [address] [place] [address] 02/20/2026 10:10 AM EDT Office Visit [facility] [address] [place] [phone] Gina Quick, DOCUMENT ADVISOR [address] [place] [address] 03/28/2026 1:40 PM EDT Office Visit [facility] [address] [place] [address] Jose Doty MD [address] [place] [address] documented as of this encounter Goals Goal [...] documented as of this encounter Care Teams Systems Administrator Relationship Specialty Start Date End Date Kayleigh Del Cid MD [address] [place] [address] PCP - General Internal Medicine 04/02/23 mItiaz Caraballo MD [address] [place] [address] Family Medicine 04/02/23 Scottie Solo MD [address] [place] [address] Consulting Physician Infectious Diseases 01/09/24 Gina Quick, TAQUERIA [address] [phone] Nurse Practitioner Urology 08/23/25 Violet Bryant Manager Of Creative Services Finance Clerk 09/28/25 documented as of this encounter
--- OUTSIDE RECORDS SUMMARY | 2025-11-08 07:10 | XMS_ITS | Encounter Summary ---
Author Organization [facility] Address [address] [place] [address] Care Team Providers Care Drawing In Hand Name Role Phone Kayleigh Del Cid MD Primary Care Provider [phone] Imtiaz Caraballo MD Unavailable Unavailab Scottie Davenport MD Unavailable Gina Quick LABELING ASSOCIATE Unavailable [phone] Violet Bryant Unavailable Unavailable Reason for Referral * Medications - Closed Specialty Diagnoses / Procedures Referred By Contenid t Referred To Contact Diagnoses Gastroesophageal reflux disease without esophagitis Kayleigh Del Cid MD [address] [place] [address] Phone: tel: fax: Referral ID Status Reason Start Date Expiration Date Visits Re quested Visits Authorized [id number] Closed 1 1 Reason for Visit * Reason Comments Med Refill Encounter Details Date Type Department Care Team (Late st Contact Info) Description 10/11/2025 Refill [facility] [address] [place] [phone] Kayleigh Del Cid MD [address] [place] [phone] Healthcare maintenance (Primary Dx); Depression, unspecified depression type; Neuropathy; Benign prostatic hyperplasia without lower urinary tract symptoms; Gastroesophageal reflux disease without esophagitis Social History [...] 11/16/2025 9:30 AM EST Office Visit [address] [phone] Scottie Solo MD [address] [place] [address] 11/16/2025 10:30 AM EST Office Visit [address] [phone] Kayleigh Del Cid MD [address] [place] [phone] 01/11/2026 8:15 AM EST Office Visit [facility] [address] [place] [address] Dirk Hoffman, OD [address] [place] [address] 02/20/2026 10:10 AM EDT Office Visit [facility] [address] [place] [address] Gina Quick, LABELING ASSOCIATE [address] [place] [address] 03/28/2026 1:40 PM EDT Office Visit [facility] [address] [place] [address] Jose Doty MD [address] [place] [address] documented as of this encounter [...] as of this encounter Visit Diagnoses Diagnosis Healthcare maintenance- Primary Depression, unspecified depression type Neuropathy Mononeuritis of unspecified site Benign prostatic hyperplasia without lower urinary tract symptoms Gastroesophageal reflux disease without esophagitis Esophageal reflux documented in this encounter Additional Health Concerns Active Problems Noted Date Diagnosed Date Treatment Adherence 07/05/2021 Transportation 07/05/2021 Assessment Noted Time PHQ-9 Depression Total Score: 0 10/28/20 25 2:26 PM EDT A fall risk assessment has been complete d for the patient 09/27/2025 2:26 PM EDT A Body Mass Index follow-up plan has been documented for the patient 09/27/2025 2:59 PM EDT documented as of this encounter Care Teams Drawing In Hand Relationship Specialty Start Date End Date Kayleigh Del Cid MD [address] [place] [address] [address] [place] [phone] PCP - General Internal Medicine 04/02/23 Imtiaz Caraballo MD [address] [place] [address] [address] [place] [address] Family Medicine 04/02/23 Scottie Solo MD [address] [place] [address] [address] [place] [address] Consulting Physician Infectious Diseases 01/09/24 Gina Quick APRN [address] [facility] [address] [place] [address] Nurse Practitioner Urology 08/23/25 Violet Bryant Bessemer Converter Blower Lease Buyer 09/28/25 documented as of this encounter
--- OUTSIDE RECORDS SUMMARY | 2025-11-08 07:10 | XMS_ITS | Encounter Summary ---
Author Organization [facility] Address [address] [place] [address] Care Team Providers Care Web Search Evaluator Name Role Phone Magalis Ruiz Unavailable Unavailable Kayleigh Del Cid MD Primary Care Provider [phone] Imtiaz Caraballo MD Unavailable Unavailab Scottie Davenport MD Unavailable Gina Quick DEALER SALES REP Unavailable [phone] Violet Bryant Unavailable Unavailable Reason for Visit * Reason Comments Med Refill Encounter Details Date Type Department Care Team (Late st Contact Info) Description 03/02/2024 Refill [facility] [id number] [place] [address] [place] [address] [place] [address] [address] [place] [address] Benign prostatic hyperplasia without lower urinary tract [...] Description 11/16/2025 9:30 AM EST Office Visit [address] [address] [place] [address] [place] [address] [address] [place] [address] 11/16/2025 10:30 AM EST Office Visit [address] [address] Kayleigh Del Cid MD [address] [place] [address] [address] [place] [address] 01/11/2026 8:15 AM EST Office Visit [facility] [address] [place] [address] Dirk Hoffman, OD [address] [place] [address] 02/20/2026 10:10 AM EDT Office Visit [facility] [address] [place] [address] Gina Quick M, DEALER SALES REP [address] [place] [address] 03/28/2026 1:40 PM EDT Office Visit [facility] [address] [place] [address] Jose Doty MD [address] [place] [phone] documented as of this encounter Goals Goal [...] documented as of this encounter Care Teams Web Search Evaluator Relationship Specialty Start Date End Date Kayleigh Del Cid MD [address] [place] [address] PCP - General Internal Medicine 04/02/23 Magalis Ruiz Proctologist Online Program Coordinator 07/25/22 09/28/25 Imtiaz Caraballo MD [address] [place] [address] Family Medicine 04/02/23 Scottie Solo MD [address] [place] [phone] Consulting Physician Infectious Diseases 01/09/24 Gina Quick, TAQUERIA [address] [phone] Nurse Practitioner Urology 08/23/25 Violet Bryant Proctologist Online Program Coordinator 09/28/25 documented as of this encounter
--- OUTSIDE RECORDS SUMMARY | 2025-11-08 07:12 | XMS_ITS | Encounter Summary ---
Author Organization [facility] Address [address] [place] [address] Care Team Providers Care Assembly Line Robot Operator Name Role Phone Magalis Ruiz Unavailable Unavailable Kayleigh Del Cid MD Primary Care Provider [phone] Imtiaz Caraballo MD Unavailable Unavailab Scottie Davenport MD Unavailable Gina Quick CAR SCRUBBER Unavailable [phone] Violet Bryant Unavailable Unavailable Reason for Visit * Reason Comments Med Refill Encounter Details Date Type Department Care Team (Late st Contact Info) Description 05/24/[address] [address] Kayleigh Del Cid MD [address] [place] [address] [address] [place] [address] Depression, unspecified depression type Social [...] Description 11/16/2025 9:30 AM EST Office Visit [address] [address] [place] [address] [place] [address] [address] [place] [address] 11/16/2025 10:30 AM EST Office Visit [address] [address] Kayleigh Del Cid MD [address] [place] [address] [address] [place] [address] 01/11/2026 8:15 AM EST Office Visit [facility] [address] [place] [address] Dirk Hoffman, OD [address] [place] [address] 02/20/2026 10:10 AM EDT Office Visit [facility] [address] [place] [address] Gina Quick M, CAR SCRUBBER [address] [place] [address] 03/28/2026 1:40 PM EDT Office Visit [facility] [address] [place] [address] Jose Doty MD [address] [place] [address] documented as of this encounter Goals Goal [...] documented as of this encounter Care Teams Assembly Line Robot Operator Relationship Specialty Start Date End Date Kayleigh Del Cid MD [address] [place] [address] PCP - General Internal Medicine 04/02/23 Magalis Ruiz National Sales Representative Water Registrar 07/25/22 09/28/25 Imtiaz Caraballo MD [address] [place] [address] Family Medicine 04/02/23 Scottie Solo MD [address] [place] [phone] Consulting Physician Infectious Diseases 01/09/24 Gina Quick APRN [address] [phone] Nurse Practitioner Urology 08/23/25 Violet Bryant National Sales Representative Water Registrar 09/28/25 documented as of this encounter
--- OUTSIDE RECORDS SUMMARY | 2025-11-08 07:12 | XMS_ITS | Encounter Summary ---
Author Organization [facility] Address [address] [place] [address] Care Team Providers Care Tenter Frame Back Tender Name Role Phone Magalis Ruiz Unavailable Unavailable Kayleigh Del Cid MD Primary Care Provider [phone] Imtiaz Caraballo MD Unavailable Unavailab Scottie Davenport MD Unavailable Gina Quick RDA Unavailable [phone] Violet Bryant Unavailable Unavailable Reason for Visit * Reason Comments Med Refill Encounter Details Date Type Department Care Team (Late st Contact Info) Description 05/26/2023 Refill [facility] [address] [place] [address] Scottie Solo MD [address] [facility] [address] [place] [address] Stage 3 chronic kidney disease, unspecified whether [...] Description 11/16/2025 9:30 AM EST Office Visit [address] [address] [place] [address] [place] [address] [address] [place] [address] 11/16/2025 10:30 AM EST Office Visit [address] [address] Kayleigh Del Cid MD [facility] [address] [place] [address] 01/11/2026 8:15 AM EST Office Visit [facility] [address] [place] [address] Dirk Hoffman, OD [address] [place] [address] 02/20/2026 10:10 AM EDT Office Visit [facility] [address] [place] [address] Gina Quick, RDA [address] [place] [address] 03/28/2026 1:40 PM EDT Office Visit [facility] [address] [place] [address] Jose Doty MD [address] [place] [phone] documented as of this encounter Goals Goal [...] documented as of this encounter Care Teams Tenter Frame Back Tender Relationship Specialty Start Date End Date Kayleigh Del Cid MD [address] [place] [address] PCP - General Internal Medicine 04/02/23 Magalis Ruiz Gis Engineer Brake Repair Mechanic 07/25/22 09/28/25 Imtiaz Caraballo MD [address] [place] [address] Family Medicine 04/02/23 Scottie Solo MD [address] [place] [address] Consulting Physician Infectious Diseases 01/09/24 Gina Quick, TAQUERIA [address] [facility] [place] [phone] Nurse Practitioner Urology 08/23/25 Violet Bryant Gis Engineer Brake Repair Mechanic 09/28/25 documented as of this encounter
[2025-11-08 07:17] LABS: Hematocrit 30.2 % (42.0-52.0); Hemoglobin 10.4 g/dL (14.1-18.0); Immature Granulocytes % 0.4 %; Mean Corpuscular HGB Conc 34.4 g/dL (31.8-35.4); Mean Corpuscular Hemoglobin 32.6 pg (27.0-31.2); Mean Corpuscular Volume 94.7 fl (80-94); Nucleated Red Blood Cells % 0 %; Platelet Count 137 K/mm3 (142-424); Red Blood Count 3.19 M/mm3 (4.60-6.20); Red Cell Distribution Width-SD 40.9 fL; White Blood Count 6.9 K/mm3 (4.8-10.8)
[2025-11-08 07:29] LABS: INR 1.00 (0.9-1.1); Prothrombin Time 11.1 seconds (10.1-12.5)
[2025-11-08 07:32] LABS: Albumin Level 4.1 g/dl (3.5-5.0); Chloride 104 mmol/L (98-107); Potassium 4.0 mmoL/L (3.5-5.1); Sodium 140 mmol/L (136-145)
[2025-11-08 07:34] LABS: Lipase 49 U/L (23-300)
[2025-11-08 07:35] LABS: Alanine Aminotransferase 20 U/L (12-78); Albumin/Globulin Ratio 1.4 (1.1-1.8); Alkaline Phosphatase 77 U/L (38-126); Anion Gap 15.0 mEq/L (5-15); Aspartate Amino Transferase 36 U/L (17-59); Bilirubin,Total 0.3 mg/dl (0.2-1.3); Blood Urea Nitrogen 22 mg/dl (9-20); Calcium 8.3 mg/dl (8.4-10.2); Carbon Dioxide 25 mmol/L (22.0-30.0); Creatinine Clearance Estimated 32 mL/min (50-200); Creatinine,Serum 1.90 mg/dl (0.66-1.25); Estimated Glomerular Filt Rate 35 ml/min (>60); GFR (African American) 42 ML/MIN (>60); Globulin 3.0 g/dL (1.3-3.2); Glucose 101 mg/dl (74-100); Total Protein,Serum 7.1 g/dl (6.3-8.2)
[2025-11-08] MEDS: 0.9 % SODIUM CHLORIDE 50 ML VIAL 80 ML IV (07:45)
[2025-11-08] MEDS: SODIUM CHLORIDE 0.9% 10ML SYR (RAD ONLY) 10 ML IV (07:45)
[2025-11-08] MEDS: IOPAMIDOL-370 (76%);100ML BOTTLE 160 ML IV (07:45)
[2025-11-08 08:05] LABS: Microscopic, Urine URINE MICROSCOPIC (MICROSCOPIC)
[2025-11-08 08:13] LABS: NT Pro Brain Natriuretic Pep. 172 pg/mL (0-125)
[2025-11-08 08:25] LABS: Bilirubin,Urine Negative (Negative); Color,Urine YELLOW (Yellow); Glucose,Urine (UA) Negative (Negative); Ketones,Urine Negative (Negative); Leukocyte Esterase,Urine Negative (Negative); PH,Urine 6.5 (5.0-8.5); Protein,Urine Negative (Negative); Specific Gravity, Urine 1.015 (1.005-1.030); Urobilinogen,Urine 0.2 EU/dl (0.2)
[2025-11-08 08:31] LABS: Troponin I < 0.01 ng/ml (0.00-0.034)
[2025-11-08 08:42] LABS: Amphetamine/Metha Screen,Urine Negative ng/ml (<1000); Barbiturates Screen,Urine Negative ng/ml (<200); Benzodiazepines Screen,Urine Negative ng/ml (<200); Methadone Screen,Urine Negative ng/ml (<300); Opiate Screen,Urine Negative ng/ml (<300); Phencyclidine Screen,Urine Negative ng/ml (<25)
[2025-11-08 08:59] LABS: RBC,Urine Occasional #/hpf (0-3); WBC,Urine Occasional #/hpf (0-3)
[2025-11-08] MEDS: BELLADONNA ALKALOIDS 60 ML ML PO (09:08)
[2025-11-08] MEDS: FAMOTIDINE 20MG/2ML VIAL 20 MG IV (09:08)
[2025-11-08] MEDS: 0.9 % SODIUM CHLORIDE 1000ML 1,000 ML 999 ML IV (09:09)
[2025-11-08 09:16] LABS: Hepatitis C Ab Qual. W/ RFX NEGATIVE (Negative)
--- NOTE | 2025-11-08 10:46 | PC.NURSE ---
While obtaining orthostatic vital signs on pt nurse manager of program was unable to get a standing bp as pt got dizzy and needed to sit down. Pt was unable to tolerate standing bp. pt tolerated lying and sitting bp well, results in chart.
[2025-11-08 10:49] LABS: Troponin I < 0.01 ng/ml (0.00-0.034)
[2025-11-08 11:15] LABS: HIV Combo Retest POSITIVE (Negative)
[2025-11-09 15:12] LABS: Interpretation: HIV-1 Positive (.)
== END 2025-11-08 11:51 | disposition left against medical advice (07) ==
PROVIDERS: Emergency Medicine; Emergency Provider Emergency Medicine; PCP Internal Medicine
DX: R07.9 Chest pain, unspecified (principal); R10.84 Generalized abdominal pain; R55 Syncope and collapse; R00.1 Bradycardia, unspecified; I65.29 Occlusion and stenosis of unspecified carotid artery; I10 Essential (primary) hypertension; E78.5 Hyperlipidemia, unspecified; B20 Human immunodeficiency virus [HIV] disease; F17.210 Nicotine dependence, cigarettes, uncomplicated; Z95.5 Presence of coronary angioplasty implant and graft
CPT/HCPCS: 70450; 70496; 70498; 71045; 71275; 74174; 80053; 80307; 80320; 81001; 83690; 83880; 84484; 85025; 85610; 86803; 87389; 93005; 96361; 96374; 99285; G0432; J1308; J7030; Q9967

== ENCOUNTER 2025-11-09 13:18 | Emergency (ER) | payer MEDICARE, SELFPAY ==
[2025-11-09] VITALS (9 sets, daily range): BP systolic 145–192; BP diastolic 70–111; PULSE 53–85; RESP 12–16; TEMP 36.8; O2SAT 96–100; BMI 24.1
--- NOTE | 2025-11-09 | ECG_ITS ---
APPROVED REPORT Exam: Resting ECG HR:54 bpm ECG Measurements Heart Rate 54 AXES QRSd 102 QRS 48 QT 458 T 62 QTc 444 Conclusion SUPRAVENTRICULAR BRADYCARDIA MINIMAL ST DEPRESSION [0.025+ mV ST DEPRESSION] No STEMI Electronically signed by : ELLIS ELENA, 11/11/2025 06:56:57
--- NOTE | 2025-11-09 13:49 | XR_ITS ---
FINAL REPORT TECHNIQUE: Single view chest CLINICAL HISTORY: Fall FINDINGS: A single view of the chest was obtained. The heart and mediastinum are within normal limits. The lungs are clear. There is no pneumothorax. IMPRESSION: No acute cardiopulmonary process. Reviewed, Interpreted and Dictated by Eric Cobb MD Transcribed by Regi Contreras Authenticated and [facility]
--- NOTE | 2025-11-09 13:50 | CT_ITS ---
FINAL REPORT TECHNIQUE: Axial images were performed through the brain.This study was performed with techniques to keep radiation doses as low as reasonably achievable, (ALARA). Individualized dose reduction techniques using automated exposure control or adjustment of mA and/or kV according to the patient''s size were employed. CLINICAL HISTORY: fall, head trauma FINDINGS: There is mild to moderate global atrophy. The ventricles are normal in size for the degree of atrophy. There is patchy decreased attenuation in the deep white matter. There is no extra-axial fluid or midline shift. There is no evidence of acute hemorrhage or mass. Paranasal sinuses are well aerated. IMPRESSION: Atrophy. No acute intracranial process. Reviewed, Interpreted and Dictated by Eric Cobb MD Transcribed by Regi Contreras Authenticated and [facility]
--- NOTE | 2025-11-09 13:50 | XR_ITS ---
FINAL REPORT CLINICAL HISTORY: Fall FINDINGS: SINGLE VIEW PELVIS: A single view of the pelvis was obtained. There is no acute fracture or dislocation. Vizualized joint spaces are normally aligned. Soft tissues are unremarkable. IVC filter is noted at the L3-4 level. IMPRESSION: No acute bony abnormality. Reviewed, Interpreted and Dictated by Eric Cobb MD Transcribed by Regi Contreras Authenticated and [facility]
--- NOTE | 2025-11-09 13:50 | CT_ITS ---
FINAL REPORT TECHNIQUE: Axial images were obtained from skull base to the thoracic inlet by computed tomography. Coronal and sagittal reconstruction process performed. This study was performed with techniques to keep radiation doses as low as reasonably achievable (ALARA). Individualized dose reduction techniques using automated exposure control or adjustment of mA and/or kV according to the patient''s size were employed. CLINICAL HISTORY: Fall FINDINGS: There is no acute fracture or subluxation. There is moderate disc space narrowing at C3-4 and C6-7. There is bilateral facet hypertrophy, left greater than right. Moderate right neuroforaminal narrowing is seen at C3-4. The facets are normally aligned. The soft tissues are unremarkable. Limited images of the lung apices are unremarkable. IMPRESSION: Degenerative changes without acute fracture. Reviewed, Interpreted and Dictated by Eric Cobb MD Transcribed by Regi Contreras Authenticated and [facility]
--- NOTE | 2025-11-09 13:51 | ED_ITS ---
<Statement entered by Abdirizak Perez DO - 11/10/25 00:23> I was consulted by the SUSAN, and we discussed the complexity of problems being addressed. I approved the treatment and management plan for this patient's care in the emergency department, thus performing a substantive portion of the medical decision making. Abdirizak Perez This is a 75-year-old gentleman who presented to the emergency department this evening for frequent falls. The patient was actually seen in our emergency department last night for weakness and frequent falls as well. The patient had a CT scan of the head that showed concern for possible dural venous sinus thrombus. The emergency department staff and recommended admission to the hospital for further workup of dural venous sinus thrombus as well as for further workup of weakness and to work with physical therapy for debility and frequent falls. The patient came back today for a recurrent fall at home this morning. On my assessment of the patient he is relatively atraumatic. He proceeded with hematologic labs as well as CT scans. Labs were personally interpreted by me and demonstrate no evidence of leukocytosis, no Transfusable anemia, normal coagulation studies. The patient's creatinine is at baseline and he has no significant electrolyte derangements. His initial troponin and delta troponin are negative. He has no evidence of urinary tract infection. We did obtain a CT venogram that showed no evidence of dural venous sinus thrombus. CT scans of the head and entire axial spine showed no acute fracture or evidence of intracranial injury. Pelvis x-rays and chest x-rays were also negative. I presented to the bedside and discussed the patient's disposition with him thoroughly. We discussed access to durable medical equipment at home. He tells me that he has a walker but refuses to use it because he is too lazy. He states that when he walks with his cane he loses his balance and he falls to the ground. Due to this, I have strongly urged the patient to be admitted to the hospital. He is GCS 15, has linear thought process, and has capacity to make decisions. He tells me that he does not want to be admitted to the hospital as he does not believe physical therapy will help and he would like to go home. Additionally, the midlevel provider David Copeland did report to me that the patient had mentioned something about visual hallucinations. I explored this with the patient as well and offered him evaluation by psychiatry and transfer to [facility] in [place]. He tells me that he had 1 episode a few days ago where the wall looked as if it was moving but he did not have true visual hallucinations where he was seeing figures that were not there. He tells me that these hallucinations have not recurred. He is adamant that he does not want to be evaluated by psychiatry. Given that the patient and his family would like for him to return home and we do not have any laboratory or imaging finding that would require him to stay here in the hospital I do feel that he has the right to make his own decisions. Therefore we discharged the patient home in stable condition and urged him to follow-up with his primary care provider for further help. Discharge Plan Disposition Patient Disposition: Home, Self-Care Condition: Good Prescriptions Prescriptions: No Action atorvastatin 80 mg tablet 80 mg PO DAILY clopidogrel 75 mg tablet 75 mg PO DAILY pantoprazole 20 mg tablet,delayed release (DR/EC) 20 mg PO DAILY Repatha SureClick 140 mg/mL pen injector 140 mg SQ Q2W sildenafil 100 mg tablet See Rx Instructions PO DAILY PRN Rx Instructions: Take 1/2 tab prior to sex famotidine 20 mg tablet 20 mg PO BID hydrocodone-acetaminophen 7.5-325 mg tablet 1 tab PO BID bupropion HCl 300 mg tablet extended release 24 hr 300 mg PO DAILY nortriptyline 50 mg capsule 50 mg PO DAILY diclofenac sodium 1 % gel 4 g topical BID Qty: 100 3RF Rx Instructions: apply to lower back tamsulosin 0.4 MG capsule 0.4 mg PO HS lamivudine 150 MG tablet 150 mg PO DAILY abacavir 300 MG tablet 600 mg PO DAILY escitalopram oxalate 20 MG tablet 20 mg PO DAILY [id number] 1 EACH tablet 1 each PO DAILY dolutegravir 50 MG tablet 50 mg PO DAILY metoprolol succinate 25 MG tablet extended release 24 hr 25 mg PO DAILY Qty: 30 0RF furosemide [Lasix] 20 mg tablet 20 mg PO DAILY 7 Days Qty: 7 0RF tamsulosin 0.4 mg capsule 0.4 mg PO DAILY 30 Days Qty: 30 0RF cefadroxil 500 mg capsule 500 mg PO BID Qty: 10 0RF thiamine HCl (vitamin B1) 100 mg capsule 100 mg PO TID Qty: 90 0RF mecobalamin (vitamin B12) [B12 Active] 1,000 mcg tablet,chewable 1,000 mcg PO DAILY Qty: 30 0RF Referrals Follow up/Referrals: Nissa Del Cid MD [Primary Care Provider, Internal Medicine] - See instructions Activity Restrictions/Add. Instructions Additional Instructions/Restrictions: Please return to the emergency department with any worsening signs or symptoms. Please follow-up with your PCP in the upcoming days/weeks. Please continue to take all your medication as prescribed. Clinical Impressions Clinical Impression: Low Back Pain, Frequent falls, Acute kidney injury superimposed on CKD Instructions Patient Instructions: DI for Kidney Failure, DI for Low Back Pain, How to Prevent Falls Print Language Print Language: [place] Discharge ED Provider: Daniel Mendoza General Adult HPI <EILEEN Vital - Last Filed: 11/09/25 17:57> General Chief complaint: Weakness Stated complaint: Fall Time Seen by Provider: 11/09/25 13:25 Mode of Arrival: EMS Source of Information: Patient and Medical Record Description of Symptoms (Recalled from ER Triage Doc. by RN): Pt brought to the ED by EMS for weakness. Pt reports he has been weak with an unsteady gait. Pt reports left leg weakness that has been on-going for 2-3 months now. Pt is on blood thinners. Pt presented yesterday (11/08/25) for the same symptoms but left AMA due to not wanting to wait for a MRI. Pt fell again this morning. Pt reports low back pain that is dull and constant and rates his pain a 6/10. He states he had a stent placed 4 years ago. He also reports he is HIV positive. Pt denies numbness and tingling in his lower extremities. History of Present Illness HPI narrative: 75-year-old male presents the emergency department via EMS for generalized weakness and frequent falls, patient states that he had 2 falls this morning, for a total of around 6 or 7 falls this week alone according to patient's family at the bedside, fall today was when the patient was trying to get out of bed when he almost fell flat on my face , provide he states he caught himself, the other 1 was in his walking living room and he tripped , once again fall, denies striking head denies any LOC, denies any presyncopal or syncopal event, denies any lightheadedness or dizziness, admits to generalized weakness that is been present for quite some time, over the last several months progressively getting worse, patient has any fever chills chest pain shortness of breath, denies any nausea vomiting constipation diarrhea abdominal pain, denies any urinary symptomatology, admits to lower back pain, denies any numbness or tingling or radicular type symptomatology, denies any saddle anesthesia urinary bladder or bowel dysfunction, family was concerned initially with the patient's speech yesterday, initial NIH yesterday was a 2, patient also had some plus minus altered mental status over the last several days, concern for waxing waning mental status yesterday from GCS 14-15, with some visual hallucinations last night according to patient family at bedside, patient states that he saw a dog or cat as a chicken or rooster . 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 Initial triage vitals notable bradycardia otherwise unremarkable. 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, secondary to median acruate ligament syndrome, with difficulty with ambulation, ultimately yesterday it was decided patient met criteria for admission, for generalized weakness failure to thrive frequent falls, concern for the need of physical therapy treatment, and consideration of advanced neuroimaging such as MRI/MRV to rule out any acute ischemic stroke, ultimately patient was GCS 15 decided to leave AGAINST MEDICAL ADVICE Please note that above description of symptoms, in this electronic medical record under categorization of recalled from ER triage doctor by RN are reflective of an initial nursing assessment, however, is not reflective of my full history and physical exam that was personally taken and clarified. Consequentially, this preceding description of symptoms, which may include the patient's categorized chief complaint in the EMR, do not reflect my personal clinical impression, and the ultimate description of history of present illness and patient stated complaints should be deferred to this section of the note. Unless stated otherwise or congruent with this section of the note, additional signs, symptoms, or incongruence should be interpreted as inaccurate with my clinical impression. Onset (ago): unknown Related Data Home Medications ?Medication ?Instructions ?Recorded ?Confirmed abacavir 300 mg tablet 600 mg PO DAILY HIV 10/19/19 06/28/25 dolutegravir 50 mg tablet 50 mg PO DAILY HIV 10/19/19 06/28/25 escitalopram oxalate 20 mg tablet 20 mg PO DAILY Depre ssion 10/19/19 06/28/25 lamivudine 150 mg tablet 150 mg PO DAILY HIV 10/19/19 06/28/25 exizgibt-gk-cgtec 300 mcg-K 60 1 each PO DAILY Diet andrade pplement 10/19/19 06/28/25 mcg-lycop 600 mcg-lutein 300 mcg tablet tamsulosin 0.4 mg capsule 0.4 mg PO HS prostate 06/28/25 atorvastatin 80 mg tablet 80 mg PO DAILY 02/11/2306/01 clopidogrel 75 mg tablet 75 mg PO DAILY 02/11/2306/01 evolocumab 140 mg/mL subcutaneous 140 mg SQ Q2W 06/28/25 pen injector (Tra Nixon) pantoprazole 20 mg tablet,delayed 20 mg PO DAILY 02/1106/28/25 release sildenafil 100 mg tablet See Rx Instructions PO DAILY PRN 02/11/23 06/28/25 bupropion HCl 300 mg 24 hr tablet, 300 mg PO DAILY Dep ression 04/15/23 06/28/25 extended release nortriptyline 50 mg capsule 50 mg PO DAILY 04/15/23 famotidine 20 mg tablet 20 mg PO BID 06/28/25 hydrocodone 7.5 mg-acetaminophen 1 tab PO BID 06/28/25 06/28/25 325 mg tablet Previous Rx's ?Medication ?Instructions ?Recorded metoprolol succinate 25 mg 25 mg PO DAILY #30 tabs tablet,extended release 24 hr diclofenac sodium 1 % topical gel 4 g topical BID #100 grams 02/12/23 furosemide 20 mg tablet (Lasix) 20 mg PO DAILY 1 week #7 tabs 12/15/24 cefadroxil 500 mg capsule 500 mg PO BID #10 caps 07/06 mecobalamin (vitamin B12) 1,000 1,000 mcg PO DAILY #30 tabs 07/06/25 mcg chewable tablet (B12 Active) thiamine HCl (vitamin B1) 100 mg 100 mg PO TID #90 cap s 07/06/25 capsule tamsulosin 0.4 mg capsule 0.4 mg PO DAILY 30 days #30 caps 07/12/25 Allergies Allergy/AdvReac Type Severity Reaction Status Date / Time morphine Allergy Verified 06/28/25 14:20 [facility] <EILEEN Vital - Last Filed: 11/09/25 17:57> [facility] Disclaimer: The information contained in this section may have been updated after the patient was seen, as this information can be updated by other users. Medical History Coronary artery disease Presence of IVC filter History of deep venous thrombosis Abnormal cardiovascular stress test Angina pectoris GERD (gastroesophageal reflux disease) Syncope Chest pain Stage 3 chronic kidney disease Hyperlipidemia Hypertension HIV disease Heat exposure MARGARET (acute kidney injury) Surgical History Stented coronary artery Family History Mother Stroke Social History Smoking Status: Never smoker alcohol intake: former substance use type: marijuana current occupational status: retired Travel in the last 8 weeks?: None household members: spouse and children housing: house caffeine: Yes Have you lived/traveled outside US in past 30 days?: No Contact w/someone who lives/traveled outside US past 30 days?: No Exposure to someone with infectious disease in past 14 days?: No Do you have a fever (greater than 100.4 F or 38 C)?: No Have you tested positive for COVID-19?: No Exposed to someone with COVID-19 in past 14 days?: No Do you have a sore throat?: No Do you have a cough?: No Do you have any weakness?: No Do you have any diarrhea?: No Are you experiencing any unusual bleeding?: No Do you have any muscle aches/pain?: No Do you have any abdominal pain?: No Are you experiencing loss of taste or smell?: No Other Medical History Have you received the Flu Vaccine for this season: No Have you received the Pneumonia Vaccine: Yes <EILEEN Vital - Last Filed: 11/09/25 17:57> ROS Obtained: Yes All systems reviewed & no additional complaints except as documented Physical Exam <EILEEN Vital - Last Filed: 11/09/25 17:57> General General appearance: alert and in no apparent distress Head Head exam: atraumatic and normocephalic Eye Eye exam: Present PERRL, EOMI, scleral icterus and other (Minimal scleral icterus present) ENT ENT exam: Present mucous membranes moist Neck Neck exam: Present normal inspection Chest Chest inspection: Present normal inspection and symmetric chest wall rise Respiratory Respiratory exam: Absent normal lung sounds bilaterally, respiratory distress, wheezes or stridor Cardiovascular Cardiovascular exam: Present normal rhythm and bradycardia Abdominal Exam Abdominal exam: Present soft; Absent tenderness, guarding, rebound or rigidity Extremities Exam Extremities exam: Present normal inspection Back Exam Back exam: Present normal inspection, tenderness and paraspinal tenderness; Absent full ROM or vertebral tenderness Neurological Exam Neurological exam: Present alert and other (GCS 14 some confusion about exact date, oriented to person place and year, no focal neurological deficit, generalized weakness noted throughout, no limb drift in the bilateral lower and upper extremities, negative Edvin sign bilateral); Absent oriented X3 Psychiatric Psychiatric exam: Present normal affect Skin Skin exam: Present warm and dry Medical Decision Making <EILEEN Vital - Last Filed: 11/09/25 17:57> Medical Records Medical records reviewed: Yes I reviewed the patient's medical records. Screening: Per USPSTF and CDC recommendations, given the prevalence of disease in our region, it is our hospital?s policy to screen for HIV and viral Hepatitis for all patients aged 18 and over and those with ongoing risk factors. [place] Inquiry Pt receiving controlled substance: No [place] was queried for this patient: No Vital Signs: 11/09/25 13:20 11/09/25 13:30 11/09/25 13:31 Temperature 98.3 F Temperature Source Oral Pulse Rate 53 L 54 L Pulse Rate [Right Radial] 54 L Respiratory Rate 12 15 12 Blood Pressure 172/70 H 181/82 H Blood Pressure [Right Arm] 172/70 H Blood Pressure Mean [Right Arm] 104 Blood Pressure Source [Right Arm] Manual Cuff/ Auscultation Blood Pressure Position [Right Arm] Sitting 02 Sat by Pulse Oximetry 100 100 100 Oxygen Delivery Method Room Air Room Air Room Air 11/09/25 14:31 11/09/25 15:31 11/09/25 16:01 Temperature Temperature Source Pulse Rate 59 L Pulse Rate [Right Radial] Respiratory Rate 14 16 14 Blood Pressure 186/82 H 192/111 H 162/87 H Blood Pressure [Right Arm] Blood Pressure Mean [Right Arm] Blood Pressure Source [Right Arm] Blood Pressure Position [Right Arm] 02 Sat by Pulse Oximetry 98 Oxygen Delivery Method Room Air 11/09/25 17:01 11/09/25 17:31 Temperature Temperature Source Pulse Rate 57 L Pulse Rate [Right Radial] Respiratory Rate 14 16 Blood Pressure 181/85 H 184/83 H Blood Pressure [Right Arm] Blood Pressure Mean [Right Arm] Blood Pressure Source [Right Arm] Blood Pressure Position [Right Arm] 02 Sat by Pulse Oximetry 99 Oxygen Delivery Method Room Air Lab Data Lab results reviewed: Yes I reviewed the patient's lab results. Lab Results 11/09/25 13:20: WBC 5.7, RBC 3.08 L, Hgb 9.7 L, Hct 29.0 L, MCV 94.2 H, MCH 31.5 H, MCHC 33.4, RDW 12.1, Plt Count 127 L, MPV 10.2, Neut % (Auto) 53.3, Lymph % (Auto) 35.6, Cecil % (Auto) 7.9, Eos % (Auto) 2.6, Baso % (Auto) 0.4, Neut # (Auto) 3.0, Lymph # (Auto) 2.0, Cecil # (Auto) 0.5, Eos # (Auto) 0.2, Baso # (Auto) 0.0, PT 11.4 11/09/25 13:20: PT 11.4, INR 1.03 11/09/25 13:20: INR 1.03, APTT 25.3, Sodium 138, Potassium 4.3, Chloride 101, Carbon Dioxide 24, Anion Gap 17.3 H, BUN 22 H, Creatinine 2.00 H, Estimated Creat Clear 30, Estimated GFR 33 L, Est GFR ( Amer) 40 L, Glucose 81, Calcium 9.1, Magnesium 2.1, Total Bilirubin 0.3, GGT 27, AST 32, ALT 20, Alkaline Phosphatase 87, Troponin I < 0.01, NT-Pro-B Natriuret Pep 900 H, Total Protein 7.2, Albumin 4.2, Globulin 3.0, Albumin/Globulin Ratio 1.4, Lipase 36, Plasma/Serum Alcohol < 10 11/09/25 14:21: Urine Color Yellow, Urine Appearance Clear, Urine pH 7.0, Ur Specific [place] 1.010, Urine Protein Negative, Urine Glucose (UA) Negative, Urine Ketones Negative, Urine Blood Negative, Urine Nitrate Negative, Urine Bilirubin Negative, Urine Urobilinogen 0.2, Ur Leukocyte Esterase Negative, Urine RBC None, Urine WBC Occasional, Ur Squamous Epith Cells Occasional, Urine Bacteria Trace, Urine Opiates Screen Negative, Urine Methadone Screen Negative, Ur Barbituates Screen Positive H, Ur Phencyclidine Scrn Negative, Ur Amphetamines Screen Negative, U Benzodiazepines Scrn Negative, Urine Cocaine Screen Negative, U Marijuana (THC) Screen Negative 11/09/25 17:15: Lactate 1.1 11/09/25 17:18: Ammonia < 9 L 11/09/25 13:20 11/09/25 13:20 Orders (Tests/Meds): ED MEDICATIONS Discontinued Medications Generic Name Dose Route Start Last Admin Trade Name Freq PRN Reason Stop Dose Admin Sodium Chloride 1,000 mls @ 999 mls/hr 11/09/25 15:13 11/09/25 15:20 Sod Chlor 0.9% 1000ml Bag IV 11/09/25 16:13 999 mls/hr .Q1H1M ONE Administration Iopamidol 75 ml 11/09/25 15:40 11/09/25 15:41 Iopamidol-370 (76%);100ml Bottle IV 11/09/25 15:41 75 ml ONCE ONE Administration Sodium Chloride 10 ml 11/09/25 15:40 11/09/25 15:41 Sodium Chloride 0.9% 10ml Syr (Rad Only) IV 11/09/25 15:41 10 ml ONCE ONE Administration ORDERS Category Date Time Status CT Venogram head Stat Cat Scan 11/09/25 14:[address] cervical spine wo con Stat Cat Scan 11/09/25 13:[address] head/brain wo con Stat Cat Scan 11/09/25 13:[address] lumbar spine wo con Stat Cat Scan 11/09/25 14:[address] thoracic spine wo con Stat Cat Scan 11/09/25 14:16 Completed Consult to Case Management [CONS] Routine Cons 11/09/25 17:03 Active Pelvis XR 1-2 views [XR pelvis 1-2V] Stat Exams 11/09/25 13:50 Completed XR chest portable Stat Exams 11/09/25 13:49 Completed Ammonia Stat Lab 11/09/25 17:18 Completed Complete Blood Count Auto Diff Stat Lab 11/09/25 13:20 Completed Comprehensive Metabolic Panel Stat Lab 11/09/25 13:20 Completed Drug Screen,Urine Stat Lab 11/09/25 14:21 Completed Ethyl Alcohol Stat Lab 11/09/25 13:20 Completed GGT [Gamma Glutamyl Transpeptidase] Stat Lab 11/09/25 13:20 Completed Lactic Acid Stat Lab 11/09/25 17:15 Completed Lipase Stat Lab 11/09/25 13:20 Completed Magnesium Stat Lab 11/09/25 13:20 Completed NT Pro Brain Natriuretic Pep. Stat Lab 11/09/25 13:20 Completed PT INR [Prothrombin Time INR] Stat Lab 11/09/25 13:20 Completed PT INR [Prothrombin Time INR] Stat Lab 11/09/25 13:20 Completed PTT [Activated Partial Thrombo Time] Stat Lab 11/09/25 13:20 Completed Troponin I Q3H Lab 11/09/25 17:18 Received Troponin I Q3H Lab 11/09/25 20:00 Ordered Troponin I Stat Lab 11/09/25 13:20 Completed Urinalysis and Microscopic Stat Lab 11/09/25 14:21 Completed Medical Decision Narrative: 75-year-old male presents emergency department with frequent falls generalized weakness, several falls today, differential diagnose include but not limited to cardiac arrhythmia, electrolyte disturbance, alcohol use disorder, failure to thrive, acute kidney injury, hypovolemia, muscle atrophy, acute UTI, acute SDH, traumatic SAH, lumbar spine fracture, contusion, dural venous sinus thrombosis, acute lumbar sacral strain, among others. I discussed this patient's case with the attending Dr. Mendoza Will obtain basic laboratory studies, lactic acid lipase level magnesium level proBNP PT/INR/PTT, ethyl alcohol level, UDS, GGT, troponin, urinalysis, EKG, chest x-ray pelvic x-ray, CT head without contrast, CT cervical spine, CT thoracic spine without contrast, CT lumbar spine without contrast, CT venogram head without contrast for further evaluation/characterization. CBC is notable for anemia and hemoglobin of 9.7 hematocrit of 29, somewhat decreased from yesterday, MCV is elevated at 94.2, thrombocytopenia at 127. Coags within normal limits CMP is noted for anion gap 17.3, BUN elevation at 22, creatinine elevation at 2, initial troponin is less than 0.01, proBNP is mildly elevated at 900 otherwise unremarkable UA is unremarkable Alcohol levels within normal I reviewed the patient's pelvic x-ray and chest x-ray along the corresponding radiologic report, no acute bony abnormality in the pelvis, no acute cardiopulmonary process noted on chest x-ray. I reviewed the patient's CT head without contrast, the corresponding radiologic report, atrophy with no acute intracranial process Will give 1 L IV NS Microscopic analysis of the patient's urine is notable for no RBCs no nitrates no leukocyte esterase occasional WBCs, occasional squamous epithelial cells trace bacteria. I reviewed the patient's CT cervical spine without contrast along the corresponding radiologic report, degenerative changes without acute fracture. Daniel Mendoza MD: I was consulted by the SUSAN, and we discussed the complexity of the problems being addressed. I approved the treatment and management plan for this patient's care in the emergency department, thus performing a substantive portion of the medical decision making. I agree with initial workup hematologic labs resulted thus far nonactionable, chronic CKD, no MARGARET or critical electrolyte abnormality. Urinalysis interpreted by me and not consistent with infection. Imaging conducted and formal reads repeat evaluation pending at time of transfer of care to the oncoming physician, Dr. Perez. I reviewed the patient's CT venogram with contrast on the corresponding radiologic report, no evidence of intracranial venous thrombosis mild patchy periventricular limitation most likely ischemic microvascular disease. I reviewed the patient's CT thoracic spine without contrast on the corresponding radiologic report, degenerative changes as described above with acute osseous abnormality. I reviewed the patient's CT lumbar spine without contrast along the corresponding radiologic report, no acute osseous abnormality is noted, degenerative changes with a large extruded disc containing vacuum phenomenon L3- L4 is 6 to the left stable since prior CT in 08/20/2023. I attempted to call hospitalist physician at approximately 4:55 PM, will call me back, performing direct patient care at this time. I had a long discussion with the hospitalist physician at approximately 5 PM, at this time he would like me to consult case management for the patient to determine if patient meets criteria for admission and placement for frequent falls failure to thrive and concern for further falls and difficulty with ambulation, for admission with possible PT OT and short-term rehabilitation placement. Will consult case management (Zehra), in the emergency department, she will see the patient in consultation. Case management (Zehra), discussed with the patient patient is not interested in any short-term rehab, or home health at this time. Will add on ammonia level. Ammonia level within normal limits. Urinalysis is positive for barbiturates otherwise negative. See attending physician documentation, Dr. Perez the attending physician who took over for Dr. Mendoza on shift change had a long discussion with the patient at bedside, patient adamantly denying any further hallucinations, does not want to be admitted for PT OT/potential short-term rehabilitation, does not want psychiatry evaluation, GCS 15 as neurological # behavioral baseline according to patient family at the bedside. Patient was once again offered admission, denied at this time shared decision making was utilized. Patient could be discharged home to self-care follow with PCP in the upcoming days/weeks patient family voiced understanding and agreed with current treatment plan/discharge. Strict ED return precaution given. <Daniel Mendoza MD - Last Filed: 11/09/25 16:22> Vital Signs: 11/09/25 13:20 11/09/25 13:30 11/09/25 13:31 Temperature 98.3 F Temperature Source Oral Pulse Rate 53 L 54 L Pulse Rate [Right Radial] 54 L Respiratory Rate 12 15 12 Blood Pressure 172/70 H 181/82 H Blood Pressure [Right Arm] 172/70 H Blood Pressure Mean [Right Arm] 104 Blood Pressure Source [Right Arm] Manual Cuff/ Auscultation Blood Pressure Position [Right Arm] Sitting 02 Sat by Pulse Oximetry 100 100 100 Oxygen Delivery Method Room Air Room Air Room Air 11/09/25 14:31 11/09/25 15:31 11/09/25 16:01 Temperature Temperature Source Pulse Rate 59 L Pulse Rate [Right Radial] Respiratory Rate 14 16 14 Blood Pressure 186/82 H 192/111 H 162/87 H Blood Pressure [Right Arm] Blood Pressure Mean [Right Arm] Blood Pressure Source [Right Arm] Blood Pressure Position [Right Arm] 02 Sat by Pulse Oximetry 98 Oxygen Delivery Method Room Air 11/09/25 17:01 11/09/25 17:31 Temperature Temperature Source Pulse Rate 57 L Pulse Rate [Right Radial] Respiratory Rate 14 16 Blood Pressure 181/85 H 184/83 H Blood Pressure [Right Arm] Blood Pressure Mean [Right Arm] Blood Pressure Source [Right Arm] Blood Pressure Position [Right Arm] 02 Sat by Pulse Oximetry 99 Oxygen Delivery Method Room Air Lab Data Lab Results 11/09/25 13:20: WBC 5.7, RBC 3.08 L, Hgb 9.7 L, Hct 29.0 L, MCV 94.2 H, MCH 31.5 H, MCHC 33.4, RDW 12.1, Plt Count 127 L, MPV 10.2, Neut % (Auto) 53.3, Lymph % (Auto) 35.6, Cecil % (Auto) 7.9, Eos % (Auto) 2.6, Baso % (Auto) 0.4, Neut # (Auto) 3.0, Lymph # (Auto) 2.0, Cecil # (Auto) 0.5, Eos # (Auto) 0.2, Baso # (Auto) 0.0, PT 11.4 11/09/25 13:20: PT 11.4, INR 1.03 11/09/25 13:20: INR 1.03, APTT 25.3, Sodium 138, Potassium 4.3, Chloride 101, Carbon Dioxide 24, Anion Gap 17.3 H, BUN 22 H, Creatinine 2.00 H, Estimated Creat Clear 30, Estimated GFR 33 L, Est GFR ( Amer) 40 L, Glucose 81, Calcium 9.1, Magnesium 2.1, Total Bilirubin 0.3, GGT 27, AST 32, ALT 20, Alkaline Phosphatase 87, Troponin I < 0.01, NT-Pro-B Natriuret Pep 900 H, Total Protein 7.2, Albumin 4.2, Globulin 3.0, Albumin/Globulin Ratio 1.4, Lipase 36, Plasma/Serum Alcohol < 10 11/09/25 14:21: Urine Color Yellow, Urine Appearance Clear, Urine pH 7.0, Ur Specific [place] 1.010, Urine Protein Negative, Urine Glucose (UA) Negative, Urine Ketones Negative, Urine Blood Negative, Urine Nitrate Negative, Urine Bilirubin Negative, Urine Urobilinogen 0.2, Ur Leukocyte Esterase Negative, Urine RBC None, Urine WBC Occasional, Ur Squamous Epith Cells Occasional, Urine Bacteria Trace, Urine Opiates Screen Negative, Urine Methadone Screen Negative, Ur Barbituates Screen Positive H, Ur Phencyclidine Scrn Negative, Ur Amphetamines Screen Negative, U Benzodiazepines Scrn Negative, Urine Cocaine Screen Negative, U Marijuana (THC) Screen Negative 11/09/25 17:15: Lactate 1.1 11/09/25 17:18: Ammonia < 9 L Orders (Tests/Meds): ED MEDICATIONS Discontinued Medications Generic Name Dose Route Start Last Admin Trade Name Freq PRN Reason Stop Dose Admin Sodium Chloride 1,000 mls @ 999 mls/hr 11/09/25 15:13 11/09/25 15:20 Sod Chlor 0.9% 1000ml Bag IV 11/09/25 16:13 999 mls/hr .Q1H1M ONE Administration Iopamidol 75 ml 11/09/25 15:40 11/09/25 15:41 Iopamidol-370 (76%);100ml Bottle IV 11/09/25 15:41 75 ml ONCE ONE Administration Sodium Chloride 10 ml 11/09/25 15:40 11/09/25 15:41 Sodium Chloride 0.9% 10ml Syr (Rad Only) IV 11/09/25 15:41 10 ml ONCE ONE Administration ORDERS Category Date Time Status CT Venogram head Stat Cat Scan 11/09/25 14:[address] cervical spine wo con Stat Cat Scan 11/09/25 13:[address] head/brain wo con Stat Cat Scan 11/09/25 13:[address] lumbar spine wo con Stat Cat Scan 11/09/25 14:[address] thoracic spine wo con Stat Cat Scan 11/09/25 14:16 Completed Consult to Case Management [CONS] Routine Cons 11/09/25 17:03 Active Pelvis XR 1-2 views [XR pelvis 1-2V] Stat Exams 11/09/25 13:50 Completed XR chest portable Stat Exams 11/09/25 13:49 Completed Ammonia Stat Lab 11/09/25 17:18 Completed Complete Blood Count Auto Diff Stat Lab 11/09/25 13:20 Completed Comprehensive Metabolic Panel Stat Lab 11/09/25 13:20 Completed Drug Screen,Urine Stat Lab 11/09/25 14:21 Completed Ethyl Alcohol Stat Lab 11/09/25 13:20 Completed GGT [Gamma Glutamyl Transpeptidase] Stat Lab 11/09/25 13:20 Completed Lactic Acid Stat Lab 11/09/25 17:15 Completed Lipase Stat Lab 11/09/25 13:20 Completed Magnesium Stat Lab 11/09/25 13:20 Completed NT Pro Brain Natriuretic Pep. Stat Lab 11/09/25 13:20 Completed PT INR [Prothrombin Time INR] Stat Lab 11/09/25 13:20 Completed PT INR [Prothrombin Time INR] Stat Lab 11/09/25 13:20 Completed PTT [Activated Partial Thrombo Time] Stat Lab 11/09/25 13:20 Completed Troponin I Q3H Lab 11/09/25 17:18 Received Troponin I Q3H Lab 11/09/25 20:00 Ordered Troponin I Stat Lab 11/09/25 13:20 Completed Urinalysis and Microscopic Stat Lab 11/09/25 14:21 Completed ECG Data Tracing #1: Independently interpreted by me rate is 54, rhythm is regular, axis is normal, no ST elevation in anatomical contiguous leads, QTc 444. Medical Decision Narrative: 75-year-old male presents emergency department with frequent falls generalized weakness, several falls today, differential diagnose include but not limited to cardiac arrhythmia, electrolyte disturbance, alcohol use disorder, failure to thrive, acute kidney injury, hypovolemia, muscle atrophy, acute UTI, acute SDH, traumatic SAH, lumbar spine fracture, contusion, dural venous sinus thrombosis, acute lumbar sacral strain, among others. I discussed this patient's case with the attending Dr. Mendoza Will obtain basic laboratory studies, lactic acid lipase level magnesium level proBNP PT/INR/PTT, ethyl alcohol level, UDS, GGT, troponin, urinalysis, EKG, chest x-ray pelvic x-ray, CT head without contrast, CT cervical spine, CT thoracic spine without contrast, CT lumbar spine without contrast, CT venogram head without contrast for further evaluation/characterization. CBC is notable for anemia and hemoglobin of 9.7 hematocrit of 29, somewhat decreased from yesterday, MCV is elevated at 94.2, thrombocytopenia at 127. Coags within normal limits CMP is noted for anion gap 17.3, BUN elevation at 22, creatinine elevation at 2, initial troponin is less than 0.01, proBNP is mildly elevated at 900 otherwise unremarkable UA is unremarkable Alcohol levels within normal I reviewed the patient's pelvic x-ray and chest x-ray along the corresponding radiologic report, no acute bony abnormality in the pelvis, no acute cardiopulmonary process noted on chest x-ray. I reviewed the patient's CT head without contrast, the corresponding radiologic report, atrophy with no acute intracranial process Will give 1 L IV NS Microscopic analysis of the patient's urine is notable for no RBCs no nitrates no leukocyte esterase occasional WBCs, occasional squamous epithelial cells trace bacteria. I reviewed the patient's CT cervical spine without contrast along the corresponding radiologic report, degenerative changes without acute fracture. Daniel Mendoza MD: I was consulted by the SUSAN, and we discussed the complexity of the problems being addressed. I approved the treatment and management plan for this patient's care in the emergency department, thus performing a substantive portion of the medical decision making. I agree with initial workup hematologic labs resulted thus far nonactionable, chronic CKD, no MARGARET or critical electrolyte abnormality. Urinalysis interpreted by me and not consistent with infection. Imaging conducted and formal reads repeat evaluation pending at time of transfer of care to the oncoming physician, Dr. Perez. Critical Care <Daniel Mendoza MD - Last Filed: 11/09/25 16:22> Critical Care Time Critical Care Time: No
[2025-11-09 13:57] LABS: Hematocrit 29.0 % (42.0-52.0); Hemoglobin 9.7 g/dL (14.1-18.0); Immature Granulocytes % 0.2 %; Mean Corpuscular HGB Conc 33.4 g/dL (31.8-35.4); Mean Corpuscular Hemoglobin 31.5 pg (27.0-31.2); Mean Corpuscular Volume 94.2 fl (80-94); Nucleated Red Blood Cells % 0 %; Platelet Count 127 K/mm3 (142-424); Red Blood Count 3.08 M/mm3 (4.60-6.20); Red Cell Distribution Width-SD 41.3 fL; White Blood Count 5.7 K/mm3 (4.8-10.8)
[2025-11-09 14:00] LABS: INR 1.03 (0.9-1.1); Prothrombin Time 11.4 seconds (10.1-12.5)
--- NOTE | 2025-11-09 14:04 | PC.NURSE ---
pt returned from CT via stretcher
[2025-11-09 14:12] LABS: Alanine Aminotransferase 20 U/L (12-78); Albumin Level 4.2 g/dl (3.5-5.0); Albumin/Globulin Ratio 1.4 (1.1-1.8); Alkaline Phosphatase 87 U/L (38-126); Anion Gap 17.3 mEq/L (5-15); Aspartate Amino Transferase 32 U/L (17-59); Bilirubin,Total 0.3 mg/dl (0.2-1.3); Blood Urea Nitrogen 22 mg/dl (9-20); Calcium 9.1 mg/dl (8.4-10.2); Carbon Dioxide 24 mmol/L (22.0-30.0); Chloride 101 mmol/L (98-107); Creatinine Clearance Estimated 30 mL/min (50-200); Creatinine,Serum 2.00 mg/dl (0.66-1.25); Estimated Glomerular Filt Rate 33 ml/min (>60); GFR (African American) 40 ML/MIN (>60); Globulin 3.0 g/dL (1.3-3.2); Glucose 81 mg/dl (74-100); Lipase 36 U/L (23-300); Magnesium 2.1 mg/dl (1.6-2.3); Potassium 4.3 mmoL/L (3.5-5.1); Sodium 138 mmol/L (136-145); Total Protein,Serum 7.2 g/dl (6.3-8.2)
--- NOTE | 2025-11-09 14:16 | CT_ITS ---
FINAL REPORT TECHNIQUE: Axial images were obtained of the thoracic spine by computed tomography. Coronal and sagittal reconstruction process performed. This study was performed with techniques to keep radiation doses as low as reasonably achievable (ALARA). Individualized dose reduction techniques using automated exposure control or adjustment of mA and/or kV according to the patient's size were employed. CLINICAL HISTORY: Fall COMPARISON: None FINDINGS: CT THORACIC SPINE: Thoracic vertebrae show normal height. There is disc space narrowing throughout the thoracic spine, with mild anterior osteophytes in the mid and lower thoracic spine. There is no malalignment. The facets are properly aligned. At the T8/9 level there is a right paracentral disc protrusion, with mild right canal stenosis best seen on image #75 of series 3. The remainder of the thoracic discs appear unremarkable. IMPRESSION: Mild degenerative change as described above, without acute osseous abnormality.. Reviewed, Interpreted and Dictated by Eric Cobb MD Transcribed by Veronica Ware Authenticated and [facility]
--- NOTE | 2025-11-09 14:16 | CT_ITS ---
FINAL REPORT TECHNIQUE: CT examination of the head was performed after the administration of intravenous contrast from the vertex through the base of the skull. Multiplanar reconstructions were obtained. This study was performed with techniques to keep radiation doses as low as reasonably achievable (ALARA). Individualized dose reduction techniques using automated exposure control or adjustment of mA and/or kV according to the patient's size were employed. CLINICAL HISTORY: Concern for DSVT COMPARISON: Earlier CT of the head without contrast dated 11/09/2025. FINDINGS: CT HEAD WITH CONTRAST: CT examination of the head reveals mild to moderate global atrophy also seen on the prior CT of 11/09/2025. There are mild patchy areas of attenuation in the periventricular white matter, most likely in this age group ischemic microvascular disease. The arterial and venous portions of the exam revealed normal appearing arteries and veins, specifically there is no evidence of deep venous thrombosis identified. No extravasation of contrast is noted. IMPRESSION: No evidence of intracranial venous thrombosis. Mild patchy periventricular low-attenuation most likely ischemic microvascular disease. Reviewed, Interpreted and Dictated by Eric Cobb MD Transcribed by Veronica Ware Authenticated and . [facility]
--- NOTE | 2025-11-09 14:16 | CT_ITS ---
FINAL REPORT TECHNIQUE: Axial images were obtained of the lumbar spine by computed tomography. Coronal and sagittal reconstruction process performed. This study was performed with techniques to keep radiation doses as low as reasonably achievable (ALARA). Individualized dose reduction techniques using automated exposure control or adjustment of mA and/or kV according to the patient''s size were employed. CLINICAL HISTORY: Fall lower back pain COMPARISON: 08/20/2023 FINDINGS: CT LUMBAR SPINE: Lumbar vertebrae show normal height. There are moderate anterior osteophytes present at the L1-2, L2-3, and L3-4 levels. There is a large extruded disc material at the L3-4 level which contains vacuum disc phenomenon, eccentric to the left and producing high-grade compression of the left lateral recess best seen on image #46 of series 1002. This is unchanged since the prior exam of 08/20/2023. There is endplate hypertrophy, with severe right and moderate left neural foraminal narrowing, similar to the prior exam. At the L4-5 level there is a moderate annular bulge with moderate right neural foraminal narrowing. There is no malalignment. The facets are properly aligned. IMPRESSION: No acute osseous abnormality is noted. Degenerative change with a large, extruded disc containing vacuum phenomenon at the L3-4 level, eccentric to the left, stable since the prior CT of 08/20/2023. Reviewed, Interpreted and Dictated by Eric Cobb MD Transcribed by Veronica Ware Authenticated and [facility]
[2025-11-09 14:23] LABS: NT Pro Brain Natriuretic Pep. 900 pg/mL (0-125)
[2025-11-09 14:24] LABS: Troponin I < 0.01 ng/ml (0.00-0.034)
[2025-11-09 14:27] LABS: Microscopic, Urine URINE MICROSCOPIC (MICROSCOPIC)
[2025-11-09 14:40] LABS: Activated Partial Thrombo Time 25.3 seconds (22.8-30.6); INR 1.03 (0.9-1.1); Prothrombin Time 11.4 seconds (10.1-12.5)
[2025-11-09 14:43] LABS: Bilirubin,Urine Negative (Negative); Color,Urine YELLOW (Yellow); Glucose,Urine (UA) Negative (Negative); Ketones,Urine Negative (Negative); Leukocyte Esterase,Urine Negative (Negative); PH,Urine 7.0 (5.0-8.5); Protein,Urine Negative (Negative); Specific Gravity, Urine 1.010 (1.005-1.030); Urobilinogen,Urine 0.2 EU/dl (0.2)
[2025-11-09 14:46] LABS: Gamma Glutamyl Transpeptidase 27 U/L (15-73)
[2025-11-09] MEDS: 0.9 % SODIUM CHLORIDE 1000ML 1,000 ML 999 ML IV (15:20)
[2025-11-09 15:31] LABS: Bacteria,Urine Trace /lpf; Squamous Epithelial Cell,Urine Occasional #/hpf (0-5); WBC,Urine Occasional #/hpf (0-3)
[2025-11-09] MEDS: SODIUM CHLORIDE 0.9% 10ML SYR (RAD ONLY) 10 ML IV (15:41)
[2025-11-09] MEDS: IOPAMIDOL-370 (76%);100ML BOTTLE 75 ML IV (15:41)
--- NOTE | 2025-11-09 15:51 | PC.NURSE ---
Pt returned from radiology
[2025-11-09 17:30] LABS: Amphetamine/Metha Screen,Urine Negative ng/ml (<1000)
[2025-11-09 17:31] LABS: Barbiturates Screen,Urine Positive ng/ml (<200); Benzodiazepines Screen,Urine Negative ng/ml (<200)
[2025-11-09 17:33] LABS: Methadone Screen,Urine Negative ng/ml (<300)
[2025-11-09 17:34] LABS: Opiate Screen,Urine Negative ng/ml (<300); Phencyclidine Screen,Urine Negative ng/ml (<25)
[2025-11-09 17:43] LABS: Ammonia < 9 umol/L (9-30)
[2025-11-09 18:02] LABS: Troponin I < 0.01 ng/ml (0.00-0.034)
--- NOTE | 2025-11-10 11:09 | SW/DCPLANNER ---
I received a consult on this patient regarding failure to thrive, frequent falls and possible placement. Per ER documentation patient was alert and oriented, not agreeable to placement and wanted to return home. I attempted to contact patient x 2 and left voicemail regarding resources. CM will attempt to follow up.
== END 2025-11-09 18:07 | disposition home or self-care (01) ==
PROVIDERS: Physician Assistant; Emergency Provider Emergency Medicine; PCP Internal Medicine
DX: M54.50 Low back pain, unspecified (principal); R53.1 Weakness; R29.6 Repeated falls; N17.9 Acute kidney failure, unspecified; N18.30 Chronic kidney disease, stage 3 unspecified; B20 Human immunodeficiency virus [HIV] disease; E78.5 Hyperlipidemia, unspecified; Z86.79 Personal history of other diseases of the circulatory system; Z95.828 Presence of other vascular implants and grafts; I12.9 Hypertensive chronic kidney disease with stage 1 through stage 4 chronic kidney disease, or unspecified chronic kidney disease
CPT/HCPCS: 70450; 70496; 71045; 72125; 72128; 72131; 72170; 80053; 80307; 80320; 81001; 82140; 82977; 83605; 83690; 83735; 83880; 84484; 85025; 85610; 85730; 93005; 96360; 99285; J7030; Q9967

== ENCOUNTER 2025-11-12 07:51 | Emergency (ER) | payer MEDICARE, SELFPAY ==
--- OUTSIDE RECORDS SUMMARY | 2025-09-27 12:40 | XMS_ITS | Encounter Summary ---
Author Organization [facility] Address [address] [place] [address] Care Team Providers Care Memorial Designer Name Role Phone Magalis Ruiz Unavailable Unavailable Kayleigh Del Cid MD Primary Care Provider [phone] Imtiaz Caraballo MD Unavailable Unavailab Scottie Davenport MD Unavailable Gina Quick APRN Unavailable [phone] Reason for Referral * Consultation (Routine) - Authorized Specialty Diagnoses / Procedures Referred By Contac t Referred To Contact Diagnoses Arteriosclerosis of coronary artery Primary hypertension Pure hypercholesterolemia Karli De Luna APRN, DNP [address] [place] [address] Phone: tel: fax: Referral ID Status Reason Start Date Expiration Date V isits Requested Visits Authorized [id number] Authorized 09/27/2025 03/29/2027 1 1 * Consultation (Routine) - Authorized Specialty Diagnoses / Procedures Referred By Contac t Referred To Contact Diagnoses Arteriosclerosis of coronary artery Primary hypertension Karli De Luna APRN, DNP [address] [place] [address] Phone: tel: fax: Referral ID Status Reason Start Date Expiration Date V isits Requested Visits Authorized [id number] Authorized 09/27/2025 03/29/2027 1 1 Reason for Visit * Reason Comments Follow-up Encounter Details Date Type Department Care Team (Latest Contact Info) Description 09/27/2025 1:40 PM EDT Office Visit [facility] [address] [place] [address] Jose Doty MD [address] [place] [address] Arteriosclerosis of coronary artery (Primary Dx); Primary hypertension; Pure hypercholesterolemia Social History Tobacco Use Types Packs/Day Years Used Date Smoking Tobacco: Former Cigarettes 0 Q uit: 1985 Passive Smoke Exposure: Current Smokeless Tobacco: Never Alcohol Use Standard Drinks/Week Comments Not Currently 0 (1 standard drink = 0.6 oz pur e alcohol) quit March 2021 PHQ-2 Answer Date Recorded Patient Health Questionnaire-2 Score 0 09/27/2025 PHQ-9 Answer Date Recorded Patient Health Questionnaire-9 Score 0 09/27/2025 AUDIT-C Answer Date Recorded Q1: How often do you have a drink containing alc ohol? Monthly or less 09/27/2025 Q2: How many drinks containi ng alcohol do you have on a typical day when you are drinking? 1 or 2 09/27/2025 Q3: How often do you have si x or more drinks on one occasion? Monthly 09/27/2025 PHQ-2A Answer Date Recorded Patient Health Questionnaire-2 Score 0 11/10/2023 Sex and Gender Information Value Date Recorded Sex Assigned at Male 12/03/2023 8:18 AM EST Legal Sex Male 8:51 PM EDT Gender Identity Male 12/03/2023 8:18 AM EST Sexual Orientation Not on file documented as of this encounter Last Filed Vital Signs Vital Sign Reading Time Taken Comments Blood Pressure 168/76 09/27/2025 2:29 PM EDT Pulse 64 09/27/2025 2:29 PM EDT Temperature - - Respiratory Rate - - Oxygen Saturation 98% 09/27/2025 2:29 PM EDT Inhaled Oxygen Concentration - - Weight 63.5 kg (139 lb 15.9 oz) 09/27/2025 2:29 PM EDT Height 165.1 cm (5' 5 ) 09/27/2025 2:29 PM EDT Body Mass Index 23.3 09/27/2025 2:29 PM EDT documented in this encounter Functional Status * AUDIT-C Score Answer Date of Assessment Author 3 09/27/2025 2:30 PM EDT Alicia Dickey * Question Answer Date of Assessment Author Q1: How often do you have a drink containing alcohol? Monthly or less 09/27/2025 2:30 PM EDT Alicia Dickey Q2: How many drinks containing alcohol do you have on a typical day when you are drinking? 1 or 2 09/27/2025 2:30 PM EDT Alicia Dickey Q3: How often do you have six or more drinks on one occasion? Monthly 09/27/2025 2:30 PM EDT Alicia Dickey * Over the past 2 weeks, how often have you been bothered by any of the following problems? Question Answer Date of Assessment Author Little interest or pleasure in doing things Not at all 09/27/2025 2:26 PM EDT Alicia Dickey Feeling down, depressed, or hopeless Not at all 09/27/2025 2:26 PM EDT Alicia Dickey Patient Health Questionnaire -2 Score 0 09/27/2025 2:26 PM EDT Alicia Dickey * Question Answer Date of Assessment Author Trouble falling or staying asleep, or sleeping too much Not at all 09/27/2025 2:26 PM SATHISHT Alicia Dickey Feeling tired or having benitez le energy Not at all 09/27/2025 2:26 PM EDT Alicia Dickey Poor appetite or overeating Not at all 09/27/2025 2: 26 PM EDT Alicia Dickey Feeling bad about yourself - or that you are a failure or have let yourself or your family down Not at all 09/27/2025 2:26 PM EDT Alicia Reyna Trouble concentrating on thi ngs, such as reading the newspaper or watching television Not at all 09/27/2025 2:26 PM EDT Alicia Dickey Moving or speaking so slowly that other people could have noticed. Or the opposite - being so fidgety or restless that you have been moving around a lot more than usual Not at all 09/27/2025 2:26 PM EDT Alicia Dickey Thoughts that you would be b eliel off or hurting yourself in some way Not at all 09/27/2025 2:26 PM EDT Alicia Dickey Patient Health Questionnaire -9 Score 0 09/27/2025 2:26 PM EDT Alicia Dickey * How difficult have these problems made it for you to do your work, take care of things at home, or get along with other people? Answer Date of Assessment Author Not difficult at all 09/27/2025 2:26 PM EDT Alicia Reyna documented as of this encounter Miscellaneous Notes * Progress Notes - Karli De Luna, CYLINDER BATCHER, DNP - 09/27/2025 1:40 PM EDT Images from the original note were not included. Cardiology Clinic Note Date of Visit 09/27/25 Patient Rk Rodriguez [address] [place] [address] PCP Kayleigh Del Cid MD SUBJECTIVE History of Present Illness Today Dr. Jose Doty and I saw Rk Rodriguez, a 75 y.o. male at the [facility] [place] for follow up. Past medical history: CAD s/p MERLINE to LAD in 2019 (cathed based on abnormal stress test, left commonfemoral vein DVT in 2009 s/p IVC filter at that time (no AC due to thrombocytopenia), CKD, HTN, HLD, HIV on HAART, h/o anal LGSIL and OA. Last clinic visit 08/17/2024 We planned on obtaining SPECT on LV (07/13/2024). Patient canceled the test since his was worried about the risk of the test (vasodilater). Patient continues to have angina. After discussion, we elected to continue medical therapy. Increased metoprolol to 50 mg in anattempt to improve his chest discomfort. Today in clinic he is doing okay. Since seeing us last he does note increased falls, one of which he went unconscious. Was evaluated in the hospital with unremarkable work up. He reports he is falling because of dizziness. When he gets up, he feels fine and then after he started walking gets dizzy.Last fall 3- 4 weeks ago. Aside from falling he continues to complain of chronic chest pain with exertion, rest relieves the pain. This has only happened 2-3 times since last visit. He does think thatthe increase in metoprolol dose has improved his chest pains. Continues with chronic ALVARES. Denies palpitations. Doesn't check his BP at home, elevated here today. Compliant with and tolerating medications well without issue. Cardiac history: Echocardiogram: -08/2023 LVEF 57%. Problem List[1] Past Medical History Past Medical History[2] Past Surgical History Surgical History[3] Family History Family History[4] Social History Social History[5] Current Medications Current Medications[6] Allergies Allergies[7] The following portions of the chart were reviewed this encounter and updated as appropriate: Tobacco Allergies Meds Problems Med Hx Surg Hx Fam Hx Review of Systems 14 Point ROS reviewed and is otherwise negative except as per HPI. OBJECTIVE Vitals Visit Vitals BP (!) 168/76 Pulse 64 Ht 1.651 m (5' 5 ) Wt 63.5 kg (139 lb 15.9 oz) SpO2 98% BMI 23.30 kg/m?? Physical Exam Physical Exam Vitals reviewed. Constitutional: General: He is not in acute distress. HENT: Head: Normocephalic. Mouth/Throat: Mouth: Mucous membranes are moist. Neck: Vascular: No carotid bruit or JVD. Cardiovascular: Rate and Rhythm: Normal rate and regular rhythm. Pulses: Normal pulses. Heart sounds: S1 normal and S2 normal. No murmur heard. No gallop. Pulmonary: Effort: Pulmonary effort is normal. No respiratory distress. Breath sounds: Normal breath sounds. Abdominal: Palpations: Abdomen is soft. Musculoskeletal: Right lower leg: No edema. Left lower leg: No edema. Skin: General: Skin is warm and dry. Neurological: Mental Status: He is alert and oriented to person, place, and time. Psychiatric: Mood and Affect: Mood normal. Behavior: Behavior normal. Lab Review Lab Results Component Value Date/Time WBC 7.74 06/06/2025 1044 RBC 3.42 (L) 06/06/2025 1044 HGB 11.0 (L) 06/06/2025 1044 HCT 33.2 (L) 06/06/2025 1044 Lab Results Component Value Date/Time GLUCOSE 96 06/06/2025 1044 BUN 23 06/06/2025 1044 CREATININE 2.00 (H) 06/06/2025 1044 NA 139 06/06/2025 1044 K 4.9 06/06/2025 1044 CL 101 06/06/2025 1044 Lab Results Component Value Date/Time AST 37 06/06/2025 1044 ALT 50 06/06/2025 1044 ALKPHOS 101 06/06/2025 1044 Lab Results Component Value Date/Time CHOL 86 06/06/2025 1044 LDLCALC 15 06/06/2025 1044 LDLCALC 95 03/26/2021 1151 HDL 53 06/06/2025 1044 TRIG 91 06/06/2025 1044 Lab Results Component Value Date/Time HGBA1C 5.5 12/30/2022 1040 Lab Results Component Value Date/Time TSH 1.71 09/17/2024 1435 ASSESSMENT AND PLAN Visit Diagnoses and Orders 1. Arteriosclerosis of coronary artery 2. Primary hypertension 3. Pure hypercholesterolemia Discussion Summary The patient's cardiac evaluation was discussed with Dr. Jose Doty who agrees with the plan. ASCVD Chronic angina -s/p MERLINE to LAD 2018 with preserved EF -Patient reports 2-3 episodes of exertional chest pain since seeing us last, thinks metoprolol increase has helped with these -Per patient, he has previously taken Imdur and caused a severe THOMSON -Continue Atorvastatin, Metoprolol Succinate, and Plavix -Adding Zetia for better lipid control HTN -Elevated here today -Hesitant to start medication 2/2 to complaints of recent falls due to dizziness upon standing -Encouraged patient to monitor BP at home, write on log and bring to all doctor visits HLD -08/2025 LDL 89 -Continue atorvastatin 80 mg -Add Zetia 10 mg Follow up: 6 months Karli De Luna APRN, DNP I personally spent a total of 30 minutes on this encounter. This time includes face to face with patient, counseling, discussion and/or coordination of care, and documentation. [1] Patient Active Problem List Diagnosis Depression Degenerative disc disease, lumbar Chronic kidney disease (CKD), stage III (moderate) ([facility]/HCC) Benign prostatic hyperplasia Arteriosclerosis of coronary artery Erectile dysfunction HIV disease ([facility]/HCC) Primary hypertension Hyperlipidemia Renal osteodystrophy Pap smear of anus with LGSIL Neuropathy Trigger finger of left hand Gastroesophageal reflux disease without esophagitis Healthcare maintenance Hearing loss Osteopenia Memory loss Nonrheumatic aortic valve stenosis Fall (on) (from) unspecified stairs and steps, initial encounter Abnormal cardiovascular stress test Chronic low back pain Heat exposure Presence of IVC filter Chronic kidney disease Dry skin Bilateral primary osteoarthritis of knee Chronic kidney disease-mineral and bone disorder Anemia due to stage 3b chronic kidney disease Dyspnea Edema of right lower extremity Falls frequently Human immunodeficiency virus (HIV) disease ([facility]/HCC) Hypertensive disorder Back pain with radiation Backache Right knee pain Acute back pain with sciatica Insect bite wound Nausea [2] Past Medical History: Diagnosis Date MARGARET (acute kidney injury) 07/30/2024 Alcohol abuse, episodic 07/21/2015 Alcohol abuse, [...] Fresh blood passed per rectum HIV disease ([facility]/HCC) Hyperlipidemia Knee pain Leg pain Low back pain Low back pain Low grade squamous intraepithelial lesion on cytologic smear of anus (LGSIL) Pap smear of anus with LGSIL Male erectile dysfunction, unspecified ED (erectile dysfunction) Myocardial infarction 10/22/2019 Nausea and vomiting 02/04/22 Problem Code: R11.0; Problem Code Type: ICD-10;Problem Code: R11.0; Problem Code Type: ICD-10;Problem Code: R11.2; Problem Code Type: ICD-10;Problem Code: R11.2; Problem Code Type: ICD-10;Problem Code: R11.2; Problem Code Type: ICD- 10;Problem Code: R11.0; Problem Code Type: ICD-10; Other disorders of iron metabolism Iron overload [...] antimicrobial drugs Infection with drug resistant microorganisms Right hip pain 06/30/24 Syphilis 02/14/2016 Tinea unguium Onychomycosis Unilateral primary osteoarthritis, unspecified knee Osteoarthritis of knee Unspecified disorder of synovium and tendon, unspecified upper arm Biceps tendinopathy Unspecified hemorrhoids Bleeding hemorrhoids Vitamin D deficiency, unspecified Mild vitamin D deficiency [3] Past Surgical History: Procedure Laterality Date ARTERIAL STENT PLACEMENT N/A Arterial stent placement from [facility] HEMORRHOID SURGERY N/A Hemorrhoidectomy from [facility] [4] Family History Problem Relation Name Age of Onset Stroke Mother Heart attack Father [5] Social History Tobacco Use Smoking status: Former Current packs/day: 0.00 Types: Cigarettes Quit date: 1984 Years since quittin.8 Passive exposure: Current Smokeless tobacco: Never Vaping Use Vaping status: Never Used Substance Use Topics Alcohol use: Not Currently Comment: quit March 2021 Drug use: Not Currently Types: Marijuana Comment: Drug use: No illicit drug use [6] Current Outpatient Medications: abacavir (Ziagen) 300 MG [...] (Plavix) 75 MG tablet, Take 1 tablet by mouth daily., Disp: 90 tablet, Rfl: 3 diclofenac (Voltaren) [...] Rfl: 3 famotidine (Pepcid) 20 MG tablet, TAKE 1 TABLET BY MOUTH TWO TIMES A DAY NEEDED FOR HEARTBURN, Disp: 180 tablet, Rfl: 0 finasteride (Proscar) 5 MG tablet, Take 1 tablet by mouth daily. Do not crush, chew, or split., Disp: 90 tablet, Rfl: 3 gabapentin (Neurontin) 300 MG capsule, , Disp: , Rfl: HYDROcodone-acetaminophen ([place]) 7.5-325 MG tablet, Take 1 tablet (7.5 mg of hydrocodone) by mouthin the morning and 1 tablet (7.5 mg of hydrocodone) before bedtime., Disp: , Rfl: lamiVUDine (Epivir) 150 MG tablet, Take 1 tablet by mouth daily., Disp: 30 tablet, Rfl: 5 loperamide (Imodium) 2 MG capsule, , Disp: , Rfl: methylPREDNISolone acetate (DEPO-Medrol) 80 MG/ML injection, , Disp: , Rfl: metoprolol succinate XL (Toprol-XL) 50 MG 24 hr tablet, Take 1 tablet by mouth daily. Pt must keep upcoming appt for additional refills., Disp: 30 tablet, Rfl: 0 Multiple Vitamins-Minerals (One Daily Mens Health) tablet, [...] (sciatica pain)., Disp: 60 capsule, Rfl: 2 tadalafil (Cialis) 10 MG tablet, Take 1 tablet 30-60 min before sex, Disp: 15 tablet, Rfl: 5 tamsulosin (Flomax) 0.4 MG 24 hr capsule, Take 1 capsule (0.4 mg) by mouth every night., Disp: 90 capsule, Rfl: 3 triamcinolone acetonide (Kenalog-40) 40 MG/ML injection, IM x 1 dose, Disp: , Rfl: diclofenac (Voltaren) 1 % topical gel, Place 4 g on the skin 4 times a day. Apply topically to bilateral knees (Patient not taking: Reported on 09/27/2025), Disp: 350 g, Rfl: 2 ezetimibe (Zetia) 10 MG tablet, Take 1 tablet by mouth daily., Disp: 90 tablet, Rfl: 3 Lidocaine Pain Relief 4 % patch, APPLY ONE PATCH TO AFFECTED AREA FOR 12 HOURS THEN REMOVE AND LEAVE OFF FOR 12 HOURS. USE NEEDED FOR PAIN. (Patient not taking: Reported on 09/27/2025), Disp: 30 patch, Rfl: 1 spironolactone-hydroCHLOROthiazide (Aldactazide) 25-25 MG tablet, Take 1 tablet (25 mg) by mouth daily. (Patient not taking: Reported on 09/27/2025), Disp: 30 tablet, Rfl: 11 [7] Allergies Allergen Reactions Morphine Other - please document in the comment field and Nausea documented in this encounter Plan of Treatment Upcoming Encounters Date Type Department Care Team (Late st Contact Info) Description 11/16/2025 9:30 AM EST Office Visit [facility] [address] [place] [address] [place] [address] [place] [address] [address] [place] [address] 11/16/2025 10:30 AM EST Office Visit [facility] [address] [facility] [place] [address] Kayleigh Del Cid MD [address] [facility] [address] [place] [address] 01/11/2026 8:15 AM EST Office Visit [facility] [address] [place] [address] Dirk Hoffman, OD [address] [place] [address] 02/20/2026 10:10 AM EDT Office Visit [facility] [address] [place] [address] Gina Quick M, CYLINDER BATCHER [address] [place] [address] 03/28/2026 1:40 PM EDT Office Visit [facility] [address] [place] [address] Jose Doty MD [address] [place] [address] Scheduled Referrals Name Type Priority Associated Diagnoses Orde r Schedule Follow Up Cardiology Outpatient Referral Routine Arteriosclerosis of coronary artery Primary hypertension Expected: 03/28/2026, Expires: 03/28/2027 Follow Up Cardiology Outpatient Referral Routine Arteriosclerosis of coronary artery Primary hypertension Pure hypercholesterolemia Expected: 03/28/2026, Expires: 03/28/2027 documented as of this encounter Goals Goal [...] encounter Visit Diagnoses Diagnosis Arteriosclerosis of coronary artery- Primary Primary hypertension Unspecified essential hypertension Pure hypercholesterolemia documented in this encounter Additional Health Concerns Active Problems Noted Date Diagnosed Date Treatment Adherence 07/05/2021 Transportation 07/05/2021 Assessment Noted Time PHQ-9 Depression Total Score: 0 09/27/20 2:26 PM EDT A fall risk assessment has been complete d for the patient 09/27/2025 2:26 PM EDT A Body Mass Index follow-up plan has been documented for the patient 09/27/2025 2:59 PM EDT documented as of this encounter Care Teams Memorial Designer Relationship Specialty Start Date End Date Kayleigh Del Cid MD [address] [place] [address] PCP - General Internal Medicine 04/02/23 Magalis Ruiz Home Delivery Driver Economic Development Coordinator 07/25/22 09/28/25 Imtiaz Caraballo MD [address] [place] [address] Family Medicine 04/02/23 Scottie Solo MD [address] [place] [address] Consulting Physician Infectious Diseases 01/09/24 Gina Quick APRN [address] [facility] [place] [address] Nurse Practitioner Urology 08/23/25 documented as of this encounter
[2025-11-12] VITALS (11 sets, daily range): BP systolic 112–197; BP diastolic 74–91; PULSE 61–69; RESP 11–20; TEMP 36.7–36.8; O2SAT 97–100; BMI 24.1
--- OUTSIDE RECORDS SUMMARY | 2025-11-12 07:55 | XMS_ITS | Clinical Summary ---
Author Organization [facility] Address [address] [place] [address] Phone Care Team Providers Care Occupational Therapy Co Director Name Role Phone Khris Dickerson MD Unavailable [phone] Ilya EDMONDSON, [place] Primary Care Provider Unava ilable Reason for Referral 04/24/2023 Encounter for Follow Up Date Recorded Target Due Date Referral Type Referring Provider Reason For Referral 04/24/2023 05/08/2023 Referral to physician (procedure) Consult for Pain Management Note: MELODIE BOLAÑOS Last Documented On 3 11:51AM ; [facility] Reason for Visit and Chief Complaint The Chief Complaint is: Low back pain Problems Includes: Problems addressed during this encounter and other active Problems Current Visit Onset Date Date of Diagnosis Resolved Date Provider Condition Status Lower Back Pain 03/21/2023 03/21/2023 Joni Hollis PA-C Active Last Documented On 5 1:41AM ; [facility] Plan of Treatment Fall Risk Assessment: This patient has been identified as a fall risk. Balance/gait along with postural blood pressure, vision and home fall hazards have been assessed. Medications have been reviewed, and recommendations made with regard to contributing factors for future falls. Plan of care: Consideration of vitamin D supplementation along with balance and strength training with consideration for formal physical therapy has been discussed with the patient. - Last Documented On 02/13/2024 9:14AM ; [facility] Referrals To Diagnosis Consult for Pain Management Note: MELODIE BOLAÑOS Last Documented On 3 11:51AM ; [facility] Assessments Includes: Assessments from this encounter No Assessments Recorded Medical Equipment - Implanted Devices Includes: Current Devices No Medical Equipment Recorded Medications Includes: Medications discussed during this encounter and other current Medications Current Medications (continue as prescribed) buPROPion HCl ER (XL) 300 MG Oral Tablet Extended Release 24 Hour 03/18/2023 Provider: Maranda Nixon er Diagnosis: Last Documented On 3 9:05AM By Suyapa Webster ; [facility] Lisinopril 5 MG Oral Tablet 03/18/2023 Provider: Diagnosis: Last Documented On 3 9:05AM By Suyapa Webster ; [facility] Atorvastatin Calcium 80 MG Oral Tablet 03/17/2023 Pr ovider: Maranda Del Cid Diagnosis: Last Documented On 3 9:05AM By Suyapa Webster ; [facility] Clopidogrel Bisulfate 75 MG Oral Tablet 03/17/2023 P rovider: Maranda Del Cid Diagnosis: Last Documented On 3 9:05AM By Suyapa Webster ; [facility] Metoprolol Succinate ER 25 M G Oral Tablet Extended Release 24 Hour 03/17/2023 Provider: Maranda Nixon er Diagnosis: Last Documented On 3 9:05AM By Suyapa Webster ; [facility] Nortriptyline HCl 50 MG Oral Capsule 03/17/2023 Prov ider: Maranda Del Cid Diagnosis: Last Documented On 3 9:05AM By Suyapa Webster ; [facility] Pantoprazole Sodium 20 MG Or al Tablet Delayed Release 03/17/2023 Provider: Maranda Del Cid Diagnosis: Last Documented On 3 9:05AM By Suyapa Webster ; [facility] Tamsulosin HCl 0.4 MG Oral Capsule 03/17/2023 Provid er: Maranda Del Cid Diagnosis: Last Documented On 3 9:05AM By Suyapa Webster ; [facility] Repatha SureClick 140 MG/ML Subcutaneous Solution Auto-injector 03/11/2023 Provider: Diagnosis: Last Documented On 3 9:05AM By Suyapa Webster ; [facility] Naproxen 500 MG Oral Tablet 03/07/2023 Provider: MACHELLE DAO MD Diagnosis: Last Documented On 3 9:05AM By Suyapa Webster ; [facility] Pregabalin 25 MG Oral Capsule 02/27/2023 Provider: Diagnosis: Last Documented On 3 9:05AM By Suyapa Webster ; [facility] Diclofenac Sodium 1% External Gel 02/13/2023 Provide r: Diagnosis: Last Documented On 3 9:05AM By Suyapa Webster ; [facility] Medications Administered Includes: Administered Medications from this encounter No Administered Medications Recorded Vital Signs Includes: Vital Signs from this encounter Vital Name 04/24/2023 10:54A Height (in) 65 Weight (lb) 150 Body Mass Index 25 Body Surface Area 1.8 Note: mg Last Documented: On 04/24/2023 10:54A M ; [facility] Results Includes: Results discussed during this encounter No Results Recorded For Specified Dates History of Present Illness Includes: History of Present Illness from this encounter LATASHA Rodriguez is a 72 year old male. - Allergy list reviewed - Problem list reviewed - Medication list reviewed Social History Description Last Updated Recent change in diet 03/21/2023 Last Documented On 3 10:53AM ; [facility] Caffeine use 03/21/2023 Last Documented On 3 10:53AM ; [facility] Not a current smoker. 03/21/2023 Last Documented On 3 10:53AM ; [facility] Not exercising regularly 03/21/2023 Last Documented On 3 10:53AM ; [facility] Not using alcohol 03/21/2023 Last Documented On 3 10:53AM ; [facility] Not using drugs 03/21/2023 Last Documented On 3 10:53AM ; [facility] Retired from work 03/21/2023 Last Documented On 3 10:53AM ; [facility] Tobacco non-user 03/21/2023 Last Documented On 3 10:53AM ; [facility] Sex - Male 06/25/2024 Last Documented On 4 4:28PM ; [facility] Smoking Status Unknown Procedures and Surgical History Includes: Procedures from this encounter Procedures Code Diagnosis Performing Provider Service L ocation Service Date use of tobacco assessment performed 1000F Last Documented On 3 10:54AM ; [facility] patient screened for future fall risk: documentation of any fall with injury in past year 1100F Last Documented On 3 10:54AM ; [facility] review of medications documented 1160F Last Documented On 4 9:14AM ; [facility] an X-ray was performed 46953 Last Documented On 3 10:54AM ; [facility] an MRI was performed [id number] Last Documented On 3 10:54AM ; [facility] Medical History Includes: Medical History addressed during this encounter Description Last Updated 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 03/21/2023 Last Documented On 3 10:53AM ; [facility] History of arthritis 03/21/2023 Last Documented On 3 10:53AM ; [facility] History of Heart Attack 03/21/2023 Last Documented On 3 10:53AM ; [facility] History of Heartburn / Acid Reflux 03/21 Last Documented On 3 10:53AM ; [facility] History of Hypertension 03/21/2023 Last Documented On 3 10:53AM ; [facility] Family History Includes: Family History addressed during this encounter Description Last Updated No significant family history 03/21/2023 Last Documented On 3 10:53AM ; [facility] Review of Systems Includes: Review of Systems from this encounter Systemic: Not feeling tired, no recent weight loss, and no recent weight gain. Head: No headache and no sinus pain. Eyes: No vision problems and no Cataracts. Glasses/Contacts. No Glaucoma. Otolaryngeal: No hearing loss and no tinnitus. Cardiovascular: No chest pain or discomfort, no palpitations, and no Hypertension. High Cholesterol. Pulmonary: No daytime asthma symptoms and no chronic cough. No wheezing. Gastrointestinal: No heartburn and no abdominal pain. No Indigestion. Acid Reflux. No Peptic Ulcer, no GI Stomach Bleed, and no Ulcers. Endocrine: No hot flashes, no muscle weakness, no Diabetes, no Hypothyroid, and no Hyperthyroid. Hematologic: No easy bleeding. A tendency for easy bruising. No Anemia. Musculoskeletal: Arthritis and lower back pain. No soft tissue swelling. Pain localized to one or more joints. Neurological: No dizziness, no convulsions, and no numbness. Psychological: No anxiety, no emotional lability, no depression, and no insomnia. Not crying for no reason. Skin: No dry skin. No Ulcers, no Scars, and no rash. Allergic and Immunologic: No complaint of seasonal allergic reaction. Mental Status Includes: Mental Status from this encounter Description No anxiety Last Documented On 3 10:54AM ; [facility] Physical Exam Includes: Physical Exam from this encounter Allergies Includes: Active Allergies Substance Type Reaction Onset Date Resolved Date Statu s Morphine Sulfate Allergy 03/21/2023 Ac tive Last Documented On 3 9:11AM ; [facility] Care Occupational Therapy Co Director Name (Identifier) Role/Relation Location/Telecom Last Documented By Khris Dickerson MD ([id number]) Assigned practitioner (occupation) [address] [place] [address], , [id number] tel: Last Documented On 06/25/2024 4:28PM ; [facility] Imtiaz Caraballo MD Primary care physici an (occupation) , Last Documented On 06/25/2024 4:28PM ; [facility] Encounters Encounter Provider Location (Healthcare Service Location) Date Check-In Time Check-Out Time Diagnosis Encounter Disposition Follow Up Khris Dickerson MD [facility] 2022 10:50AM 11:42AM Payer Includes: Active Insurance Policies Plan Name (Payer ID) Coverage Type Member ID Group # Subscriber (ID) Relationship Effective Dates 1 - BCBS ([place]) Medicare ([id number]) [id number] Rk Rodriguez Self Last Documented On 3 8:32AM ; [facility] Clinical Notes Includes: Clinical Notes from this encounter * Progress note Date Encounter Last Documented by 04/24/2023 Follow Up Last documented on 02/13/2024; 9:14 AM, Khris Dickerson MD; [facility] Active Problems & Conditions - Lower Back Pain Chief Complaint The Chief Complaint is: Low back pain. Referred Here Referred by Self. History of Present Illness Rk Rodriguez is a 72 year old male. - Allergy list reviewed - Problem list reviewed - Medication list reviewed Current Medication - Atorvastatin Calcium 80 MG Oral Tablet 90 days, 0 refills - buPROPion HCl ER (XL) 300 MG Oral Tablet Extended Release 24 Hour Tablet, extended-release 24 hour 90 days, 0 refills - Clopidogrel Bisulfate 75 MG Oral Tablet 90 days, 0 refills - Diclofenac Sodium 1% External Gel Gel (jelly) 13 days, 0 refills - Lisinopril 5 MG Oral Tablet 90 days, 0 refills - Metoprolol Succinate ER 25 MG Oral Tablet Extended Release 24 Hour Tablet, extended-release 24 hour 90 days, 0 refills - Naproxen 500 MG Oral Tablet 15 days, 0 refills - Nortriptyline HCl 50 MG Oral Capsule Capsule, conventional 90 days, 0 refills - Pantoprazole Sodium 20 MG Oral Tablet Delayed Release Tablet, enteric coated 90 days, 0 refills - Pregabalin 25 MG Oral Capsule Capsule, conventional 15 days, 0 refills - Repatha SureClick 140 MG/ML Subcutaneous Solution Auto-injector 28 days, 0 refills - Tamsulosin HCl 0.4 MG Oral Capsule Capsule, conventional 90 days, 0 refills Past Medical/Surgical History Reported: History of Heart Attack. Tests: 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. Diagnoses: Heartburn / Acid Reflux Hypertension. Arthritis Social History Not a current smoker. Current diet: Recent change in diet. Caffeine use: Caffeine use. Tobacco use: Tobacco non-user. Alcohol: Not using alcohol. Drug Use: Not using drugs. Habits: Not exercising regularly. Work: Retired from work. Allergies - Morphine Sulfate Family History No significant family history Review Of Systems Systemic: Not feeling tired, no recent weight loss, and no recent weight gain. Head: No headache and no sinus pain. Eyes: No vision problems and no Cataracts. Glasses/Contacts. No Glaucoma. Otolaryngeal: No hearing loss and no tinnitus. Cardiovascular: No chest pain or discomfort, no palpitations, and no Hypertension. High Cholesterol. Pulmonary: No daytime asthma symptoms and no chronic cough. No wheezing. Gastrointestinal: No heartburn and no abdominal pain. No Indigestion. Acid Reflux. No Peptic Ulcer, no GI Stomach Bleed, and no Ulcers. Endocrine: No hot flashes, no muscle weakness, no Diabetes, no Hypothyroid, and no Hyperthyroid. Hematologic: No easy bleeding. A tendency for easy bruising. No Anemia. Musculoskeletal: Arthritis and lower back pain. No soft tissue swelling. Pain localized to one or more joints. Neurological: No dizziness, no convulsions, and no numbness. Psychological: No anxiety, no emotional lability, no depression, and no insomnia. Not crying for no reason. Skin: No dry skin. No Ulcers, no Scars, and no rash. Allergic and Immunologic: No complaint of seasonal allergic reaction. Physical Findings - Vitals taken 04/24/2023 10:54 am mg Height 65 in Weight 150 lbs Body Mass Index 25 kg/m2 Body Surface Area 1.8 m2 Previous Tests Imaging: X-Ray: An X-ray was performed. MRI Scan: An MRI was performed. Available previous imaging studies were reviewed Available previous history reviewed Plan StartCited - Other Referral/Pain Management: Consult for Pain Management Instructions: MELODIE BOLAÑOS EndDanya Fall Risk Assessment: This patient has been identified as a fall risk. Balance/gait along with postural blood pressure, vision and home fall hazards have been assessed. Medications have been reviewed, and recommendations made with regard to contributing factors for future falls. Plan of care: Consideration of vitamin D supplementation along with balance and strength training with consideration for formal physical therapy has been discussed with the patient. Notes This dictation was done with voice recognition software and may contain errors and omissions. Patient is here with complaints of low back pain. Going on for many years. He gets some right leg pain as well. Good good strength both lower extremities. Is got a indurated red area that is being treated by another doctor on his proximal lower leg. Good good strength normal gait. his CT myelogram does not show any significant stenosis with mild diffuse spondylosis. Would not recommend surgery and he would like to work with a pain management doctor. We will make that referral for him and we will see him back as needed. Practice Management Use of tobacco assessment performed and patient screened for future fall risk documentation of any fall with injury in past year Review of medications documented. Care Team - Imtiaz Caraballo MD Health Reminders - Assess BMI satisfied 04/24/2023. - Assess Tobacco Use satisfied 03/21/2023.
--- OUTSIDE RECORDS SUMMARY | 2025-11-12 07:55 | XMS_ITS | Encounter Summary ---
Author Organization [facility] Address [address] [place] [address] Care Team Providers Care Rotary Shear Operator Name Role Phone Kayleigh Del Cid MD Primary Care Provider [phone] Imtiaz Caraballo MD Unavailable Unavailab Scottie Davenport MD Unavailable Gina Quick DREDGE HAND Unavailable [phone] Violet Bryant Unavailable Unavailable Encounter Details Date Type Department Care Team (Late st Contact Info) Description 10/04/2025 Telephone [facility] [address] [place] [address] Jose Doty MD [address] [place] [address] Social History Tobacco Use Types [...] U[place], PharmD - 10/05/2025 9:15 AM EST [facility] has been sending him the Repatha, patient stated he has been taking it and the atorvastatin this whole time. He is in need of refills for the Repatha. * Telephone Encounter - yKm Cabello RN - 10/05/2025 8:54 AM EST [...] Description 11/16/2025 9:30 AM EST Office Visit [address] [phone] Scottie Solo MD [address] [place] [address] [address] [place] [address] 11/16/2025 10:30 AM EST Office Visit [address] [phone] Kayleigh Del Cid MD [address] [place] [address] 01/11/2026 8:15 AM EST Office Visit [facility] [address] [place] [address] Dirk Hoffman, OD [address] [place] [address] 02/20/2026 10:10 AM EDT Office Visit [facility] [address] [place] [address] Gina Quick, DREDGE HAND [address] [place] [address] 03/28/2026 1:40 PM EDT Office Visit [facility] [address] [place] [address] Jose Doty MD [address] [place] [address] documented as of this encounter [...] documented as of this encounter Care Teams Rotary Shear Operator Relationship Specialty Start Date End Date Kayleigh Del Cid MD [facility] [address] [place] [address] PCP - General Internal Medicine 04/02/23 Imtiaz Caraballo MD [facility] [address] [place] [address] Family Medicine 04/02/23 Scottie Solo MD [address] [place] [address] [address] [place] [address] Consulting Physician Infectious Diseases 01/09/24 Gina Quick APRN [address] [facility] [address] [place] [address] Nurse Practitioner Urology 08/23/25 Violet Bryant Edge Drummer Board [employer] 09/28/25 documented as of this encounter
--- OUTSIDE RECORDS SUMMARY | 2025-11-12 07:55 | XMS_ITS | Encounter Summary ---
Author Organization [facility] Address [address] [place] [address] Care Team Providers Care Yard Associate Name Role Phone Kayleigh Del Cid MD Primary Care Provider [phone] Imtiaz Caraballo MD Unavailable Unavailab Scottie Davenport MD Unavailable Gina Quick HAND BINDERY ASSEMBLY WORKER Unavailable [phone] Violet Bryant Unavailable Unavailable Reason for Visit * Reason Comments Med Refill Encounter Details Date Type Department Care Team (Late st Contact Info) Description 10/11/2025 Refill [facility] [address] [place] [phone] Scottie Solo MD [address] [place] [address] [address] [place] [address] Gastroesophageal reflux disease without esophagitis Social History [...] Description 11/16/2025 9:30 AM EST Office Visit [address] [phone] Scottie Solo MD [address] [place] [address] [address] [place] [address] 11/16/2025 10:30 AM EST Office Visit [address] [phone] Kayleigh Del Cid MD [address] [place] [address] [address] [place] [address] 01/11/2026 8:15 AM EST Office Visit [facility] [address] [place] [address] Dirk Hoffman, OD [address] [facility] [address] [place] [address] 02/20/2026 10:10 AM EDT Office Visit [facility] [address] [place] [address] Gina Quick, HAND BINDERY ASSEMBLY WORKER [address] [place] [address] 03/28/2026 1:40 PM EDT Office Visit [facility] [address] [place] [address] Jose Doty MD [address] [place] [address] documented as of this encounter [...] documented as of this encounter Care Teams Yard Associate Relationship Specialty Start Date End Date Kayleigh Del Cid MD [address] [place] [address] [address] [place] [address] PCP - General Internal Medicine 04/02/23 Imtiaz Caraballo MD [address] [place] [address] [address] [place] [address] Family Medicine 04/02/23 Scottie Solo MD [address] [facility] [address] [place] [address] Consulting Physician Infectious Diseases 01/09/24 Gina Quick APRN [address] [facility] [address] [place] [address] Nurse Practitioner Urology 08/23/25 Violet Bryant Edge Sawyer Teaching Aide 09/28/25 documented as of this encounter
--- OUTSIDE RECORDS SUMMARY | 2025-11-12 07:55 | XMS_ITS | Encounter Summary ---
Author Organization [facility] Address [address] [place] [address] Care Team Providers Care Lumber Tallier Name Role Phone Kayleigh Del Cid MD Primary Care Provider [phone] Imtiaz Caraballo MD Unavailable Unavailab Scottie Davenport MD Unavailable Gina Quick PROBATION SUPERVISOR Unavailable [phone] iVolet Bryant Unavailable Unavailable Reason for Visit * Reason Comments Med Refill Encounter Details Date Type Department Care Team (Late st Contact Info) Description 10/21/2025 Refill [facility] [address] [place] [phone] Scottie Solo MD [address] [place] [address] [address] [place] [address] HIV disease ([facility]) Social History Tobacco Use Types Packs/Day Years [...] Description 11/16/2025 9:30 AM EST Office Visit [place] [phone] Scottie Solo MD [address] [place] [address] 11/16/2025 10:30 AM EST Office Visit [address] [phone] Kayleigh Del Cid MD [address] [place] [phone] 01/11/2026 8:15 AM EST Office Visit [facility] [address] [facility] [place] [address] Dirk Hoffman, OD [address] [address] 02/20/2026 10:10 AM EDT Office Visit [facility] [address] [place] [address] Gina Quick, TAQUERIA [address] [place] [address] 03/28/2026 1:40 PM EDT Office Visit [facility] [place] [address] [place] [address] Jose Doty MD [address] [place] [address] documented as of this encounter [...] this encounter Visit Diagnoses Diagnosis HIV disease ([facility]) Human immunodeficiency virus [HIV] disease documented in [...] documented as of this encounter Care Teams Lumber Tallier Relationship Specialty Start Date End Date Kayleigh Del Cid MD [address] [place] [address] [address] [place] [address] PCP - General Internal Medicine 04/02/23 Imtiaz Caraballo MD [address] [place] [address] [address] [place] [address] Family Medicine 04/02/23 Scottie Solo MD [address] [place] [address] [address] [place] [address] Consulting Physician Infectious Diseases 01/09/24 Gina Quick, PROBATION SUPERVISOR [address] [facility] [address] [place] [address] Nurse Practitioner Urology 08/23/25 Violet Bryant Valance Cutter Business Asst 09/28/25 documented as of this encounter
--- OUTSIDE RECORDS SUMMARY | 2025-11-12 07:56 | XMS_ITS | Encounter Summary ---
Author Organization [facility] Address [address] [place] [address] Care Team Providers Care Staff Physical Therapist Name Role Phone Magalis Ruiz Unavailable Unavailable Kayleigh Del Cid MD Primary Care Provider [phone] Imtiaz Caraballo MD Unavailable Unavailab Scottie Davenport MD Unavailable Gina Quick PILLOWCASE CUTTER Unavailable [phone] Violet Bryant Unavailable Unavailable Reason for Visit * Reason Onset Date Comments HCN - Patient Message 09/20/2025 Encounter Details Date Type Department Care Team (Late st Contact Info) Description 09/20/2025 Telephone [facility] [address] [place] [id number] Jose Doty MD [address] [place] [address] HCN - Patient Message Social [...] has no openings until January contact number: [phone] (home) Optimal time of day to reach caller: ANYTIME Additional comments/information from caller: Note: Please do not reply to this message. Follow-up communication and further actions as a result of this message need to be communicated with the patient directly, if the patient is not active onMyChart. If the patient is active on MyChart, they will receive notification of the communication/outcome via Appolicioushart. documented in this encounter Plan of Treatment Upcoming Encounters Date Type Department Care Team (Late st Contact Info) Description 11/16/2025 9:30 AM EST Office Visit [address] [phone] Scottie Solo MD [address] [place] [address] 11/16/2025 10:30 AM EST Office Visit [address] [phone] Kayleigh Del Cid MD [address] [facility] [address] [place] [address] 01/11/2026 8:15 AM EST Office Visit [facility] [address] [place] [address] Dirk Hoffman J, OD [address] [place] [address] 02/20/2026 10:10 AM EDT [facility] [address], [address] [place] [address] Gina Quick, PILLOWCASE CUTTER [address] [place] [address] 03/28/2026 1:40 PM EDT Office Visit [facility] [address] [place] [address] Jose Doty MD [address] [place] [address] documented as of this [...] documented as of this encounter Care Teams Staff Physical Therapist Relationship Specialty Start Date End Date Kayleigh Del Cid MD [address] [facility] [address] [place] [address] PCP - General Internal Medicine 04/02/23 Magalis Ruiz Soft Metals Hand Engraver Can Maker 07/25/22 09/28/25 Imtiaz Caraballo MD [facility] [address] [place] [address] Family Medicine 04/02/23 Scottie Solo MD [address] [place] [address] [address] [place] [address] Consulting Physician Infectious Diseases 01/09/24 Gina Quick APRN [address] [facility] [address] [place] [address] Nurse Practitioner Urology 08/23/25 Violet Bryant Soft Metals Hand Engraver Can Maker 09/28/25 documented as of this encounter
--- OUTSIDE RECORDS SUMMARY | 2025-11-12 07:56 | XMS_ITS | Encounter Summary ---
Author Organization [facility] Address [address] [place] [address] Care Team Providers Care Home Health Aid Name Role Phone Magalis Ruiz Unavailable Unavailable Kayleigh Del Cid MD Primary Care Provider [phone] Imtiaz Caraballo MD Unavailable Unavailab Scottie Davenport MD Unavailable Gina Quick FISCAL SPECIALIST Unavailable [phone] Violet Bryant Unavailable Unavailable Reason for Visit * Reason Comments Med Refill Encounter Details Date Type Department Care Team (Late st Contact Info) Description 05/26/[address] [phone] [place] [address] [place] [address] [address] [place] [address] HIV disease ([facility]) Social History Tobacco Use Types Packs/Day Years [...] Description 11/16/2025 9:30 AM EST Office Visit [address] [address] Scottie Solo MD [address] [facility] [address] [place] [address] 11/16/2025 10:30 AM EST Office Visit [address] [address] [place] [address] [place] [address] [address] [place] [address] 01/11/2026 8:15 AM EST Office Visit [facility] [address] [place] [address] Dirk Hoffman, OD [address] [place] [address] 02/20/2026 10:10 AM EDT Office Visit [facility] [address] [place] [address] Gina Quick M, FISCAL SPECIALIST [address] [place] [address] 03/28/2026 1:40 PM EDT Office Visit [facility] [address] [place] [address] Jose Doty MD [address] [place] [address] documented as of this encounter Goals Goal [...] documented as of this encounter Care Teams Home Health Aid Relationship Specialty Start Date End Date Kayleigh Del Cid MD [address] [place] [address] PCP - General Internal Medicine 04/02/23 Magalis Ruiz Shot Blaster Flue Dust Laborer 07/25/22 09/28/25 Imtiaz Caraballo MD [address] [place] [address] Family Medicine 04/02/23 Scottie Solo MD [address] [place] [address] Consulting Physician Infectious Diseases 01/09/24 Gina Quick APRN [address] [place] [address] Nurse Practitioner Urology 08/23/25 Violet Bryant Shot Blaster Flue Dust Laborer 09/28/25 documented as of this encounter
--- OUTSIDE RECORDS SUMMARY | 2025-11-12 07:56 | XMS_ITS ---
Care Plan - [facility] Created on: November 12, 2025 Rk Rodriguez : 1950 Sex: Male Author Organization [facility] Address [address] [place] [address] Phone Care Team Providers Care Administration Specialist Name Role Phone Tuan EDMONDSON, Khris Peterson Unavailable [phone] Ilya EDMONDSON, Imtiaz Primary Care Provider Unava ilable
--- OUTSIDE RECORDS SUMMARY | 2025-11-12 07:56 | XMS_ITS | Encounter Summary ---
Author Organization [facility] Address [address] [place] [address] Care Team Providers Care Automation Analyst Name Role Phone Magalis Ruiz Unavailable Unavailable Kayleigh Del Cid MD Primary Care Provider [phone] Imtiaz Caraballo MD Unavailable Unavailab Scottie Davenport MD Unavailable Gina Quick BOAT DRIVER Unavailable [phone] Violet Bryant Unavailable Unavailable Reason for Visit * Reason Comments Case Management Encounter Details Date Type Department Care Team (Late st Contact Info) Description 09/28/2025 Patient Outreach [facility] [address] [place] [address] Violet Bryant Case Management Social [...] new MCM A: Updated assigned MCM in [employer], [employer], and emailed Bettye Dale to update KADAP. Duration: 15 minutes documented in this encounter Plan of Treatment Upcoming Encounters Date Type Department Care Team (Late st Contact Info) Description 11/16/2025 9:30 AM EST Office Visit [address] [phone] Scottie Solo MD [address] [place] [address] [address] [place] 11/16/2025 10:30 AM EST Office Visit [address] [phone] Kayleigh Del Cid MD [address] [place] [address] [address] [place] 01/11/2026 8:15 AM EST Office Visit [facility] [address] [place] [address] Dirk Hoffman, OD [address] [facility] [address] [place] [address] 02/20/2026 10:10 AM EDT Office Visit [facility] [address] [place] [address] Gina Quick M, BOAT DRIVER [address] [place] [address] 03/28/2026 1:40 PM EDT Office Visit [facility] [address] [place] [address] Jose Doty MD [address] [place] [address] documented as of this encounter [...] documented as of this encounter Care Teams Automation Analyst Relationship Specialty Start Date End Date Kayleigh Del Cid MD [address] [facility] [address] [place] [address] PCP - General Internal Medicine 04/02/23 Magalis Ruiz Adjunct Physics Instructor Sales Administration Manager 07/25/22 09/28/25 Imtiaz Caraballo MD [address] [place] [address] [address] [place] [address] Family Medicine 04/02/23 Scottie Solo MD [address] [place] [address] [address] [place] [address] Consulting Physician Infectious Diseases 01/09/24 Gina Quick APRN [address] [facility] [address] [place] [address] Nurse Practitioner Urology 08/23/25 Violet Bryant Adjunct Physics Instructor Sales Administration Manager 09/28/25 documented as of this encounter
--- OUTSIDE RECORDS SUMMARY | 2025-11-12 07:56 | XMS_ITS | Clinical Summary ---
Author Organization [facility] Address [address] [place] [address] Phone Care Team Providers Care Scalp Specialist Name Role Phone Khris Dickerson MD Unavailable [phone] Ilya EDMONDSON, [place] Primary Care Provider Unava ilable Reason for Referral 06/13/2023 Encounter for Follow Up Date Recorded Target Due Date Referral Type Referring Provider Reason For Referral 06/13/2023 06/27/2023 Referral to physician (procedure) Consult for Pain Management Note: DR BOLAÑOS- [facility] TRIAL Last Documented On 3 9:43AM ; [facility] Reason for Visit and Chief Complaint The Chief Complaint is: Low back pain Problems Includes: Problems addressed during this encounter and other active Problems Current Visit Onset Date Date of Diagnosis Resolved Date Provider Condition Status Lower Back Pain 03/21/2023 03/21/2023 Joni Hollis PA-C Active Last Documented On 5 1:41AM ; [facility] Plan of Treatment Fall Risk [...] with the patient. - Last Documented On 06/13/2023 12:26PM ; [facility] Patient was seen by myself Joni Hollis PA-C. Patient will follow up as needed for now explained to him he has multilevel degenerative change with his back CT myelogram last time showed no evidence of any stenosis. He does not need any back surgery I recommend he continue to work with pain management maybe they can possibly discuss a spinal cord stimulator trial. I gave him a brochure in regards to that. - Last Documented On 06/13/2023 12:26PM ; [facility] Pending Tests Order Diagnosis Results Due Ordering Elizabeth esposito Radiology - CT/Myelogram Lumbar 03/21/23 Joni Hollis PA-C Last Documented On 3 11:57AM ; [facility] Referrals To Diagnosis Consult for Pain Management Note: DR BOLAÑOS- [facility] TRI[facility] Last Documented On 3 9:43AM ; [facility] Assessments Includes: Assessments from this encounter Findings Lumbar DDD - Last Documented On 06/13/2023 12:26PM ; [facility] Medical Equipment - Implanted Devices Includes: Current Devices No Medical Equipment Recorded Medications Includes: Medications discussed during this encounter and other current Medications Current Medications (continue as prescribed) buPROPion HCl ER (XL) 300 MG Oral Tablet Extended Release 24 Hour 03/18/2023 Provider: Maranda Nixon er Diagnosis: Last Documented On 3 9:05AM By Suyapa Webster ; [facility] Lisinopril 5 MG Oral Tablet 03/18/2023 Provider: Diagnosis: Last Documented On 3 9:05AM By Suyapa Webster ; [facility] Atorvastatin Calcium 80 MG Oral Tablet 03/17/2023 Pr ovider: Maranda Del Cid Diagnosis: Last Documented On 3 9:05AM By Suyapa Webster ; [facility] Clopidogrel Bisulfate 75 MG Oral Tablet 03/17/2023 Elizabeth esposito: Maranda Del Cid Diagnosis: Last Documented On 3 9:05AM By Suyapa Webster ; [facility] Metoprolol Succinate ER 25 M G Oral Tablet Extended Release 24 Hour 03/17/2023 Provider: Maranda Nixon er Diagnosis: Last Documented On 3 9:05AM By Suyapa Webster ; [facility] Nortriptyline HCl 50 MG Oral Capsule 03/17/2023 Prov ider: Maranda Del Cid Diagnosis: Last Documented On 3 9:05AM By Suyapa Webster ; [facility] Pantoprazole Sodium 20 MG Or al Tablet Delayed Release 03/17/2023 Provider: Maranda Del Cid Diagnosis: Last Documented On 3 9:05AM By Suyapa Webster ; [facility] Tamsulosin HCl 0.4 MG Oral Capsule 03/17/2023 Provid er: Maranda Del Cid Diagnosis: Last Documented On 3 9:05AM By Suyapa Webster ; [facility] Repatha SureClick 140 MG/ML Subcutaneous Solution Auto-injector 03/11/2023 Provider: Diagnosis: Last Documented On 3 9:05AM By Suyapa Webster ; [facility] Naproxen 500 MG Oral Tablet 03/07/2023 Provider: MACHELLE DAO MD Diagnosis: Last Documented On 3 9:05AM By Suyapa Webster ; [facility] Pregabalin 25 MG Oral Capsule 02/27/2023 Provider: Diagnosis: Last Documented On 3 9:05AM By Suyapa Webster ; [facility] Diclofenac Sodium 1% External Gel 02/13/2023 Provide r: Diagnosis: Last Documented On 3 9:05AM By Suyapa Webster ; [facility] Medications Administered Includes: Administered Medications from this encounter No Administered Medications Recorded Vital Signs Includes: Vital Signs from this encounter Vital Name 06/13/2023 09:11A Height (in) 65 Weight (lb) 150 Body Mass Index 25 Body Surface Area 1.8 Note: mg Last Documented: On 06/13/2023 9:11AM ; [facility] Results Includes: Results discussed during this encounter No Results Recorded For Specified Dates History of Present Illness Includes: History of Present Illness from this encounter LATASHA Rodriguez is a 72 year old male. - Allergy list reviewed - Problem list reviewed - Medication list reviewed Patient is here today complaints of left-sided low back pain and still has complaints of left leg pain we last saw him earlier this year had a CT myelogram of his lumbar spine showed no activity stenosis but multilevel spondylolysis and he was referred to pain management where he sees Dr. Bolaños and was just prescribed Webber. Patient says he still has his left-sided lower back pain and pain that radiates down the left leg top of the buckley. He says has been that way but it became little bit worse after having the CT myelogram. He is not interested in any injections he states he does not want to do physical therapy Social History Description Last Updated Recent change in diet 03/21/2023 Last Documented On 3 9:11AM ; [facility] Caffeine use 03/21/2023 Last Documented On 3 9:11AM ; [facility] Not a current smoker. 03/21/2023 Last Documented On 3 9:11AM ; [facility] Not exercising regularly 03/21/2023 Last Documented On 3 9:11AM ; [facility] Not using alcohol 03/21/2023 Last Documented On 3 9:11AM ; [facility] Not using drugs 03/21/2023 Last Documented On 3 9:11AM ; [facility] Retired from work 03/21/2023 Last Documented On 3 9:11AM ; [facility] Tobacco non-user 03/21/2023 Last Documented On 3 9:11AM ; [facility] Sex - Male 06/25/2024 Last Documented On 4 4:28PM ; [facility] Smoking Status Unknown Procedures and Surgical History Includes: Procedures from this encounter Procedures Code Diagnosis Performing Provider Service L ocation Service Date use of tobacco assessment performed 1000F Last Documented On 3 9:11AM ; [facility] patient screened for future fall risk: documentation of any fall with injury in past year 1100F Last Documented On 3 9:11AM ; [facility] an X-ray was performed 38303 Last Documented On 3 9:11AM ; [facility] an MRI was performed 13020 Last Documented On 3 9:11AM ; [facility] Medical History Includes: Medical History addressed during this encounter Description Last Updated 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 03/21/2023 Last Documented On 3 9:11AM ; [facility] History of arthritis 03/21/2023 Last Documented On 3 9:11AM ; [facility] History of Heart Attack 03/21/2023 Last Documented On 3 9:11AM ; [facility] History of Heartburn / Acid Reflux 03/21 Last Documented On 3 9:11AM ; [facility] History of Hypertension 03/21/2023 Last Documented On 3 9:11AM ; [facility] Family History Includes: Family History addressed during this encounter Description Last Updated No significant family history 03/21/2023 Last Documented On 3 9:11AM ; [facility] Review of Systems Includes: Review of Systems [...] Description No anxiety Last Documented On 3 9:11AM ; [facility] Physical Exam Includes: Physical Exam from this encounter Allergies Includes: Active Allergies Substance Type Reaction Onset Date Resolved Date Statu s Morphine Sulfate Allergy 03/21/2023 Ac tive Last Documented On 3 9:11AM ; [facility] Care Scalp Specialist Name (Identifier) Role/Relation Location/Telecom Last Documented By Khris Dickerson MD ([id number]) Assigned practitioner (occupation) [address] [place] [address], [place], [phone] tel: Last Documented On 06/25/2024 4:28PM ; [facility] Imtiaz Caraballo MD Primary care physici an (occupation) , Last Documented On 06/25/2024 4:28PM ; [facility] Encounters Encounter Provider Location (Healthcare Service Location) Date Check-In Time Check-Out Time Diagnosis Encounter Disposition Follow Up Joni Hollis PA-C [facility] 2022 9:08AM 9:43AM Payer Includes: Active Insurance Policies Plan Name (Payer ID) Coverage Type Member ID Group # Subscriber (ID) Relationship Effective Dates 1 - BCBS ([place]) Medicare ([id number]) [id number] Rk Rodriguez Self Last Documented On 3 8:32AM ; [facility] Clinical Notes Includes: Clinical Notes from this encounter * Progress note Date Encounter Last Documented by 06/13/2023 Follow Up Last documented on 06/13/2023; 12:26 PM, Joni Gonzalez; [facility] Active Problems & Conditions - Lower Back Pain Chief Complaint The Chief Complaint is: Low back pain. Referred Here Referred by Self. History of Present Illness Rk Rodriguez is a 72 year old male. - Allergy list reviewed - Problem list reviewed - Medication list reviewed Patient is here today complaints of left-sided low back pain and still has complaints of left leg pain we last saw him earlier this year had a CT myelogram of his lumbar spine showed no activity stenosis but multilevel spondylolysis and he was referred to pain management where he sees Dr. Bolaños and was just prescribed Webber. Patient says he still has his left-sided lower back pain and pain that radiates down the left leg top of the buckley. He says has been that way but it became little bit worse after having the CT myelogram. He is not interested in any injections he states he does not want to do physical therapy Current Medication - Atorvastatin Calcium 80 MG Oral Tablet 90 days, 0 refills - buPROPion HCl ER (XL) 300 MG Oral Tablet Extended Release 24 Hour 90 days, 0 refills - Clopidogrel Bisulfate 75 MG Oral Tablet 90 days, 0 refills - Diclofenac Sodium 1% External Gel 13 days, 0 refills - Lisinopril 5 MG Oral Tablet 90 days, 0 refills - Metoprolol Succinate ER 25 MG Oral Tablet Extended Release 24 Hour 90 days, 0 refills - Naproxen 500 MG Oral Tablet 15 days, 0 refills - Nortriptyline HCl 50 MG Oral Capsule 90 days, 0 refills - Pantoprazole Sodium 20 MG Oral Tablet Delayed Release 90 days, 0 refills - Pregabalin 25 MG Oral Capsule 15 days, 0 refills - Repatha SureClick 140 MG/ML Subcutaneous Solution Auto-injector 28 days, 0 refills - Tamsulosin HCl 0.4 MG Oral Capsule 90 days, 0 refills Past Medical/Surgical History [...] allergic reaction. Physical Findings - Vitals taken 06/13/2023 09:11 am mg Height 65 in Weight 150 lbs Body Mass Index 25 kg/m2 Body Surface Area 1.8 m2 Patient is pleasant and oriented x3 he is 5 out of 5 EHL gastroc quadricep tibialis anterior strength bilaterally blunted patellas and Achilles reflexes bilaterally negative straight leg raise bilaterally Tests Two views lumbar spine shows multilevel degenerative changes no acute fractures June 13, 2023 Assessment Lumbar DDD Previous Tests Imaging: X-Ray: An X-ray was performed. MRI Scan: An MRI was performed. Available previous imaging studies were reviewed Available previous history reviewed Plan StartCited - Other Referral/Pain Management: Consult for Pain Management Instructions: DR BOLAÑOS- [facility] TRIAL EndCited Fall Risk Assessment: This patient has been [...] therapy has been discussed with the patient. Patient was seen by myself Joni Hollis PA-C. Patient will follow up as needed for now explained to him he has multilevel degenerative change with his back CT myelogram last time showed no evidence of any stenosis. He does not need any back surgery I recommend he continue to work with pain management maybe they can possibly discuss a spinal cord stimulator trial. I gave him a brochure in regards to that. Notes This dictation was done with voice recognition software and may contain errors and omissions. Practice Management Use of tobacco assessment performed and patient screened for future fall risk documentation of any fall with injury in past year. Care Team - Imtiaz Caraballo MD Health Reminders - Assess BMI satisfied 06/13/2023. - Assess Tobacco Use satisfied 03/21/2023.
--- OUTSIDE RECORDS SUMMARY | 2025-11-12 07:56 | XMS_ITS | Encounter Summary ---
Author Organization [facility] Address [address] [place] [address] Care Team Providers Care Fishing Rod Marker Name Role Phone Magalis Ruiz Unavailable Unavailable Kayleigh Del Cid MD Primary Care Provider [phone] Imtiaz Caraballo MD Unavailable Unavailab Scottie Davenport MD Unavailable Gina Quick SEASONING SPRAYER Unavailable [phone] Violet Brynat Unavailable Unavailable Encounter Details Date Type Department Care Team (Late st Contact Info) Description 08/24/2025 Results Follow-Up [facility] [address], [address] [place] [address] Gina Quick, SEASONING SPRAYER [address] [place] [address] Social History Tobacco Use Types [...] 11/16/2025 9:30 AM EST Office Visit [address] [address] Scottie Solo MD [address] [place] [phone] 11/16/2025 10:30 AM EST Office Visit [address] [address] Kayleigh Del Cid MD [address] [place] [phone] 01/11/2026 8:15 AM EST Office Visit [facility] [address] [place] [address] Dirk Hoffman, OD [address] [place] [address] 02/20/2026 10:10 AM EDT Office Visit [facility] [address], [address] [place] [address] Gina Quick, SEASONING SPRAYER [address] [place] [address] 03/28/2026 1:40 PM EDT Office Visit [facility] [place] [address] [place] [address] Jose Doty MD [address] [place] [address] documented as of this encounter [...] documented as of this encounter Care Teams Fishing Rod Marker Relationship Specialty Start Date End Date Kayleigh Del Cid MD [address] [place] [phone] PCP - General Internal Medicine 04/02/23 Magalis Ruiz Fishing Rod Marker Knitting Tester 07/25/22 09/28/25 Imtiaz Caraballo MD [address] [place] [phone] Family Medicine 04/02/23 Scottie Solo MD [address] [place] [address] Consulting Physician Infectious Diseases 01/09/24 Gina Quick, SEASONING SPRAYER [address] [facility] [place] [address] Nurse Practitioner Urology 08/23/25 Violet Bryant Fishing Rod Marker Knitting Tester 09/28/25 documented as of this encounter
--- OUTSIDE RECORDS SUMMARY | 2025-11-12 07:56 | XMS_ITS ---
Author Organization [facility] Address [address] [place] [address] Phone Care Team Providers Care Managing Member Name Role Phone Khris Dickerson MD Unavailable [phone] Ilya EDMONDSON, Aguila Primary Care Provider Unava ilable Reason for Referral 06/13/2023 Encounter for Follow Up Date Recorded Target Due Date Referral Type Referring Provider Reason For Referral 06/13/2023 06/27/2023 Referral to physician (procedure) Consult for Pain Management Note: DR AVILA MONTERROSO Last Documented On 3 9:43AM ; [facility] 04/24/2023 Encounter for Follow Up Date Recorded Target Due Date Referral Type Referring Provider Reason For Referral 04/24/2023 05/08/2023 Referral to physician (procedure) Consult for Pain Management Note: MELODIE BOLAÑOS Last Documented On 3 11:51AM ; [facility] Problems Includes: Active, inactive, and resolved Problems All Visits Onset Date Date of Diagnosis Resolved Date Provider Condition Status Lower Back Pain 03/21/2023 03/21/2023 Joni Hollis PA-C Active Last Documented On 5 1:41AM ; [facility] Plan of Treatment Pending Tests Order Diagnosis Results Due Ordering P rovider Radiology - CT/Myelogram Lumbar 03/21/23 Joni Hollis PA-C Last Documented On 3 11:57AM ; [facility] Referrals To Diagnosis Consult for Pain Management Note: MELODIE BOLAÑOS Last Documented On 3 11:51AM ; [facility] Consult for Pain Management Note: DR MAMI- [facility] TRIAL Last Documented On 3 9:43AM ; [facility] Instructions to patient Lose weight Last Documented On 3 9:06AM ; [facility] Assessments Includes: Assessments for all patient encounters No Assessments Recorded Instructions Includes: Instructions for all patient encounters Instructions to patient Lose weight Last Documented On 3 9:06AM ; [facility] Medical Equipment - Implanted Devices Includes: Current and historical Devices No Medical Equipment Recorded Medications Includes: Current and historical Medications Current Medications (continue as prescribed) buPROPion HCl ER (XL) 300 MG Oral Tablet Extended Release 24 Hour 03/18/2023 Provider: Maranda Nixon er Diagnosis: Last Documented On 3 9:05AM By Suyapa Webster ; [facility] Lisinopril 5 MG Oral Tablet 03/18/2023 Provider: Diagnosis: Last Documented On 3 9:05AM By Suyapa Webster ; [facility] Atorvastatin Calcium 80 MG Oral Tablet 03/17/2023 Pr ovider: Maranda Del Cid Diagnosis: Last Documented On 3 9:05AM By Suyapa Webster ; [facility] Clopidogrel Bisulfate 75 MG Oral Tablet 03/17/2023 P rovider: Maranda Del Cid Diagnosis: Last Documented On 3 9:05AM By Suyapa Webster ; [facility] Metoprolol Succinate ER 25 M G Oral Tablet Extended Release 24 Hour 03/17/2023 Provider: Maranda Nixon er Diagnosis: Last Documented On 3 9:05AM By Suyapa Webster ; [facility] Nortriptyline HCl 50 MG Oral Capsule 03/17/2023 Prov ider: Maranda Del Cid Diagnosis: Last Documented On 3 9:05AM By Suyapa Webster ; [facility] Pantoprazole Sodium 20 MG Or al Tablet Delayed Release 03/17/2023 Provider: Maranda Del Cid Diagnosis: Last Documented On 3 9:05AM By Suyapa Webster ; [facility] Tamsulosin HCl 0.4 MG Oral Capsule 03/17/2023 Provid er: Maranda Del Cid Diagnosis: Last Documented On 3 9:05AM By Suyapa Webster ; [facility] Repatha SureClick 140 MG/ML Subcutaneous Solution Auto-injector 03/11/2023 Provider: Diagnosis: Last Documented On 3 9:05AM By Suyapa Webster ; [facility] Naproxen 500 MG Oral Tablet 03/07/2023 Provider: MACHELLE DAO MD Diagnosis: Last Documented On 3 9:05AM By Suyapa Webster ; [facility] Pregabalin 25 MG Oral Capsule 02/27/2023 Provider: Diagnosis: Last Documented On 3 9:05AM By Suyapa Webster ; [facility] Diclofenac Sodium 1% External Gel 02/13/2023 Provide r: Diagnosis: Last Documented On 3 9:05AM By Suyapa Webster ; [facility] Medications Administered Includes: Administered Medications in patient's chart No Administered Medications Recorded Results Includes: Results from 11/12/2024 through 11/12/2025 No Results Recorded For Specified Dates Social History Description Last Updated Recent change in diet 03/21/2023 Last Documented On 3 11:57AM ; [facility] Caffeine use 03/21/2023 Last Documented On 3 11:57AM ; [facility] Not a current smoker. 03/21/2023 Last Documented On 3 11:57AM ; [facility] Not exercising regularly 03/21/2023 Last Documented On 3 11:57AM ; [facility] Not using alcohol 03/21/2023 Last Documented On 3 11:57AM ; [facility] Not using drugs 03/21/2023 Last Documented On 3 11:57AM ; [facility] Retired from work 03/21/2023 Last Documented On 3 11:57AM ; [facility] Tobacco non-user 03/21/2023 Last Documented On 3 11:57AM ; [facility] Sex - Male 06/25/2024 Last Documented On 4 4:28PM ; [facility] Smoking Status Unknown Medical History Includes: Medical History in patient's chart Description Last Updated 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 03/21/2023 Last Documented On 3 11:57AM ; [facility] History of arthritis 03/21/2023 Last Documented On 3 11:57AM ; [facility] History of Heart Attack 03/21/2023 Last Documented On 3 11:57AM ; [facility] History of Heartburn / Acid Reflux 03/21 Last Documented On 3 11:57AM ; [facility] History of Hypertension 03/21/2023 Last Documented On 3 11:57AM ; [facility] Family History Includes: Family History in patient's chart Description Last Updated No significant family history 03/21/2023 Last Documented On 3 11:57AM ; [facility] Mental Status Description No anxiety Last Documented On 3 9:11AM ; [facility] No anxiety Last Documented On 3 10:54AM ; [facility] No anxiety Last Documented On 3 9:58AM ; [facility] Allergies Includes: Active, inactive, and resolved Allergies Substance Type Reaction Onset Date Resolved Date Statu s Morphine Sulfate Allergy 03/21/2023 Ac tive Last Documented On 3 9:11AM ; [facility] Care Managing Member Name (Identifier) Role/Relation Location/Telecom Last Documented By Khris Dickerson MD ([id number]) Assigned practitioner (occupation) [address] [place] [address], [place], [address] tel: Last Documented On 06/25/2024 4:28PM ; [facility] Imtiaz Caraballo MD Primary care physici tanvi (occupation) , Last Documented On 06/25/2024 4:28PM ; [facility] Payer Includes: Active Insurance Policies Plan Name (Payer ID) Coverage Type Member ID Group # Subscriber (ID) Relationship Effective Dates 1 - BCBS ([place]) Medicare ([id number]) [id number] Rk Jennifer Self Last Documented On 3 8:32AM ; [facility]
--- OUTSIDE RECORDS SUMMARY | 2025-11-12 07:56 | XMS_ITS | Encounter Summary ---
Author Organization [facility] Address [address] [place] [address] Care Team Providers Care Home Office Representative Name Role Phone Magalis Ruiz Unavailable Unavailable Kayleigh Del Cid MD Primary Care Provider [phone] Imtiaz Caraballo MD Unavailable Unavailab Scottie Davenport MD Unavailable Gina Quick GLOVE PRINTER Unavailable [phone] Reason for Visit * Reason Onset Date Comments Med Refill 09/15/2025 Encounter Details Date Type Department Care Team (Late st Contact Info) Description 09/15/2025 Refill [facility] [address] [facility] [place] [address] Jose Doty MD [address] [place] [address] Social History Tobacco Use Types [...] Description 11/16/2025 9:30 AM EST Office Visit [address] [address] Scottie Solo MD [address] [place] [address] [address] [place] [address] 11/16/2025 10:30 AM EST Office Visit [address] [address] Kayleigh Del Cid MD [address] [place] [address] [address] [place] [address] 01/11/2026 8:15 AM EST Office Visit [facility] [address] [place] [address] Dirk Hoffman, OD [address] [facility] [address] [place] [address] 02/20/2026 10:10 AM EDT Office Visit [facility] [address], [address] [place] [address] Gina Quick, GLOVE PRINTER [address] [place] [address] 03/28/2026 1:40 PM EDT Office Visit [facility] [address] [place] [address] Jose Doty MD [address] [place] [address] documented as of this encounter [...] as of this encounter Care Teams Home Office Representative Relationship Specialty Start Date End Date Kayleigh Del Cid MD [address] [place] [address] [address] [place] [phone] PCP - General Internal Medicine 04/02/23 Magalis Ruiz Job Training Supervisor Custom Ski Maker 07/25/22 09/28/25 Imtiaz Caraballo MD [address] [place] [address] [address] [place] [address] Family Medicine 04/02/23 Scottie Solo MD [address] [facility] [address] [place] [address] Consulting Physician Infectious Diseases 01/09/24 Gina Quick APRN [address] [facility] [address] [place] [address] Nurse Practitioner Urology 08/23/25 documented as of this encounter
--- OUTSIDE RECORDS SUMMARY | 2025-11-12 07:56 | XMS_ITS | Encounter Summary ---
Author Organization [facility] Address [address] [place] [address] Care Team Providers Care Licensed Optician Name Role Phone Kayleigh Del Cid MD Primary Care Provider [phone] Imtiaz Carbaallo MD Unavailable Unavailab Scottie Davenport MD Unavailable Gina Quick REGIONAL SALES ENGINEER Unavailable [phone] Violet Bryant Unavailable Unavailable Encounter Details Date Type Department Care Team (Late st Contact Info) Description 10/06/2025 Orders [facility] [address] [place] [address] Kym Cabello, [facility] None Social History Tobacco Use [...] Description 11/16/2025 9:30 AM EST Office Visit [address] [address] Scottie Solo MD [address] [place] [address] [address] [place] [address] 11/16/2025 10:30 AM EST Office Visit [address] [address] [place] [address] [place] [address] [address] [place] [address] 01/11/2026 8:15 AM EST Office Visit [facility] [address] [place] [address] Dirk Hoffman, OD [address] [place] [address] 02/20/2026 10:10 AM EDT [facility] [address] [place] [phone] Gina Quick, REGIONAL SALES ENGINEER [address] [place] [address] 03/28/2026 1:40 PM EDT Office Visit [facility] [place] [address] [place] [address] Jose Doty MD [address] [place] [address] documented as of this encounter Goals Goal [...] documented as of this encounter Care Teams Licensed Optician Relationship Specialty Start Date End Date Kayleigh Del Cid MD [address] [place] [address] PCP - General Internal Medicine 04/02/23 Imtiaz Caraballo MD [address] [place] [address] Family Medicine 04/02/23 Scottie Solo MD [address] [place] [address] Consulting Physician Infectious Diseases 01/09/24 Gina Quick, TAQU[place]IA [address] [phone] Nurse Practitioner Urology 08/23/25 Violet Bryant Production Support Analyst Placement Manager 09/28/25 documented as of this encounter
--- OUTSIDE RECORDS SUMMARY | 2025-11-12 07:56 | XMS_ITS | Encounter Summary ---
Author Organization [facility] Address [address] [place] [address] Care Team Providers Care Surg Rn Name Role Phone Kayleigh Del Cid MD Primary Care Provider [phone] Imtiaz Caraballo MD Unavailable Unavailab Scottie Davenport MD Unavailable Gina Quick TALENT ADVISOR Unavailable [phone] Violet Bryant Unavailable Unavailable Reason for Referral * Medications - Closed Specialty Diagnoses / Procedures Referred By Contenid t Referred To Contact Diagnoses Gastroesophageal reflux disease without esophagitis Kayleigh Del Cid MD [address] [place] [address] Phone: tel: fax: Referral ID Status Reason Start Date Expiration Date Visits Re quested Visits Authorized [id number] Closed 1 1 Reason for Visit * Reason Comments Med Refill Encounter Details Date Type Department Care Team (Late st Contact Info) Description 10/11/2025 Refill [facility] [address] [place] [address] Kayleigh Del Cid MD [address] [place] [phone] Healthcare maintenance (Primary Dx); Depression, unspecified depression [...] Description 11/16/2025 9:30 AM EST Office Visit [address] [phone] Scottie Solo MD [address] [place] [address] 11/16/2025 10:30 AM EST Office Visit [address] [phone] Kayleigh Del Cid MD [address] [place] [address] 01/11/2026 8:15 AM EST Office Visit [facility] [address] [place] [address] Dirk Hoffman, OD [address] [place] [address] 02/20/2026 10:10 AM EDT Office Visit [facility] [address] [place] [address] Gina Quick, TALENT ADVISOR [address] [place] [address] 03/28/2026 1:40 PM EDT Office Visit [facility] [address] [place] [address] Jose Doty MD [address] [place] [address] documented as of this encounter [...] documented as of this encounter Care Teams Surg Rn Relationship Specialty Start Date End Date Kayleigh Del Cid MD [address] [place] [address] [address] [place] [address] PCP - General Internal Medicine 04/02/23 Imtiaz Caraballo MD [address] [place] [address] [address] [place] [address] Family Medicine 04/02/23 Scottie Solo MD [address] [place] [address] [address] [place] [address] Consulting Physician Infectious Diseases 01/09/24 Gina Quick APRN [address] [facility] [address] [place] [address] Nurse Practitioner Urology 08/23/25 Violet Bryant Telegraph Editor Security System Administrator 09/28/25 documented as of this encounter
--- OUTSIDE RECORDS SUMMARY | 2025-11-12 07:56 | XMS_ITS | Clinical Summary ---
Author Organization [facility] [address] Care Team Providers Care University Extension Specialist Name Role Phone Unavailable Primary Care Provider [...]
--- OUTSIDE RECORDS SUMMARY | 2025-11-12 07:56 | XMS_ITS | Clinical Summary ---
Author Organization [facility] Address [address] [place] [address] Care Team Providers Care Commercial Helicopter Pilot Name Role Phone Kayleigh Del Cid MD Primary Care Provider [phone] Imtiaz Caraballo MD Unavailable Unavailab Scottie Davenport MD Unavailable Gina Quick APRN Unavailable [phone] Violet Bryant Unavailable Unavailable Allergies Active Allergy Reactions Criticality Noted Date Comments Morphine Other - please docum ent in the comment field,Nausea High 06/01/2010 Medications loperamide (Imodium) 2 MG capsule 2021 Active HYDROcodone-acetaminop hen ([place]) 7.5-325 MG tablet Take 1 tablet (7.5 [...] FORM DOLUTEGRAVIR 90 tablet 3 10/20 Discontinued Active Problems Problem Noted Date Diagnosed [...] Meningococcal MCV4P 09/24/2017, 02/04/2018 Moderna COVID-19 Vaccine ([place]) 12+ years 01/25/2021, 02/22/2021, 07/26/2021 Moderna COVID-19 [...] Value Date HGBA1C 5.5 12/30/2022 Referrals Dentist: jacques Ophthalmology: Assessment & Plan (11/22/2024 8:13 PM [...] Meningococcal MCV4P 09/24/2017, 02/04/2018 Moderna COVID-19 Vaccine ([place]) 12+ years 01/25/2021, 02/22/2021, 07/26/2021 Moderna COVID-19 [...] Meningococcal MCV4P 09/24/2017, 02/04/2018 Moderna COVID-19 Vaccine ([place]) 12+ years 01/25/2021, 02/22/2021, 07/26/2021 Moderna COVID-19 [...] Meningococcal MCV4P 09/24/2017, 02/04/2018 Moderna COVID-19 Vaccine ([place]) 12+ years 01/25/2021, 02/22/2021, 07/26/2021 Moderna COVID-19 [...] Meningococcal MCV4P 09/24/2017, 02/04/2018 Moderna COVID-19 Vaccine ([place]) 12+ 01/25/2021, 02/22/2021, 07/26/2021 PPD Skin Test [...] LAD stent placed in Oct 2019 at [facility] Assessment & Plan (05/25/2025 4:24 PM EDT): [...] of discoloration Nausea and vomiting 02/04/2022 08/21/20 Overview (07/30/2024): Problem Code: R11.0; Problem Code [...] Encounters Date Type Department Care Team Description 11/10/2025 Refill [facility] [address] [place] [address] Kayleigh Del Cid MD Stage 3 chronic kidney disease, unspecified whether stage 3a or 3b CKD ([facility]); Arteriosclerosis of coronary artery 10/21/[address] [address] Scottie Solo MD HIV disease ([facility]) 10/11/[address] [address] Scottie Solo MD Gastroesophageal reflux disease without esophagitis 10/11/[address] [address] Kayleigh Del Cid MD Healthcare maintenance (Primary Dx); Depression, unspecified depression type; Neuropathy; Benign prostatic hyperplasia without lower urinary tract symptoms; Gastroesophageal reflux disease without esophagitis 10/06/2025 Orders Only [facility] [address] [phone] Kym Cabello RN 10/04/2025 Telephone [facility] [address] [place] [address] Jose Doty MD 09/28/2025 Patient Outreach [address] [address] Violet Bryant Case Management 09/27/2025 1:40 PM EDT Office Visit [facility] [address] [phone] Jose Doty MD Arteriosclerosis of coronary artery (Primary Dx); Primary hypertension; Pure hypercholesterolemia 09/27/2025 Travel 09/26/2025 Telephone [facility] [address] [place] [address] Jose Doty MD HCN Clinical Concern/Question 09/20/2025 Telephone [facility] [address] [place] [address] Jose Doty MD HCN - Patient Message 09/15/2025 Refill [facility] [address] [place] [address] Jose Doty MD 08/31/2025 Telephone [facility] [address] [place] [address] Mike Harley PA 08/24/2025 Results Follow-Up [facility] [address] [place] [address] Gina Quick APRN 08/23/2025 9:50 AM EDT Office Visit [facility] [address] [place] [address] Gina Quick, SLACK LINE YARDER Benign prostatic hyperplasia without lower urinary tract [...] 11/16/2025 9:30 AM EST Office Visit [address] [address] Scottie Solo MD [address] [place] [address] 11/16/2025 10:30 AM EST Office Visit [address] [phone] Kayleigh Del Cid MD [address] [place] [address] [address] [place] [address] 01/11/2026 8:15 AM EST Office Visit [facility] [address] [place] [address] Dirk Hoffman, OD [address] [facility] [address] [place] [address] 02/20/2026 10:10 AM EDT Office Visit [facility] [address] [place] [address] Noapurva, Gina M, SLACK LINE YARDER [address] [place] [address] 03/28/2026 1:40 PM EDT Office Visit [facility] [place] [facility] [address] [place] [address] Jose Doty MD [address] [place] [address] Health Maintenance Due Date Last Done Comments Dental Prophylaxis 1950 Dental X-Ray: Bitewings 1950 [facility]-Medicare Annual Wellness (AWV) 1950 [facility]-/Child/Adol SDOH Screenings 1950 [facility]- SDOH Screenings 1969 [facility]-Adult SDOH Screenings 1969 CT Colonography 1996 FIT-DNA 1996 FIT 1996 FOBT 1996 Sigmoidoscopy 1996 [facility]-Hepatitis A Vaccines (4 of 4 - Hep A Twinrix risk 4-dose series) 10/18/2011 02/28/2011, 11/19/2010, 10/18/2010 [facility]-Abdominal Aortic Aneurysm (AAA) Screening 2016 Dental Oral Exam 08/08/2024 02/05/2024 [id number] Vaccine ( season) 2025 09/08/2024, 01/05/2024, 08/14/2022, [...] - 6.50 ng/mL 08/23/2025 4:23 PM EDT [facility] Blood Venous blood specimen / Unknown Venipuncture / Unknown 08/23/2025 10:46 AM EDT 08/23/2025 10:49 AM EDT Narrative [facility] - 08/23/2025 4:23 PM EDT Performed by Amos electrochemiluminescent immunoassay which is standardized against the PSA [place] Reference Standard (WHO 96/670). Results obtained with different test methods or kits cannot be used interchangeably. Gina Quick APRN LAB BLOOD ORDERABLES Final Result [facility] [address] [place] [address] * POC US Bladder Volume (08/23/2025 9:45 AM EDT) Pathologist [facility] Urine, Volume 166 mL IMAGING Anatomical Region Laterality Modality Other Gina Quick SLACK LINE YARDER IMG POINT OF CARE ULTRASOUN D Final Result * Hepatitis C Antibody - ED W/Reflex to HCV Quant PCR (05/09/2025 2:40 PM EDT) Hepatitis C Antibody Negative Negative 05/09/2025 3:37 PM EDT [facility] Blood Venous blood specimen / Unknown Venipuncture / Unknown 05/09/2025 2:40 PM EDT 05/09/2025 2:55 PM EDT Jesus Archer MD LAB BLOOD ORDERABLES Andreea l Result [facility] [address] [place] [address] * COLONOSCOPY (08/21/2016) Anatomical Region Laterality Modality [...] Patient has decision-making capacity? Yes Care Teams Commercial Helicopter Pilot Relationship Specialty Start Date End Date Kayleigh Del Cid MD [facility] [address] [place], [place] PCP - General Internal Medicine 04/02/23 Imtiaz Caraballo MD [facility] [address] [place] Family Medicine 04/02/23 Scottie Solo MD [address] [place] [address] [address] [place], [place] Consulting Physician Infectious Diseases 01/09/24 Gina Quick APRN [address] [facility] [address] [place] [address] Nurse Practitioner Urology 08/23/25 Violet Bryant Senior Underwriting Assistant Implementation Analyst 09/28/25
--- OUTSIDE RECORDS SUMMARY | 2025-11-12 07:56 | XMS_ITS ---
Author Organization [facility] Address [address] [place] [address] Care Team Providers Care Roller Die Cutting Machine Operator Name Role Phone Kayleigh Del Cid MD Primary Care Provider [phone] Imtiaz Caraballo MD Unavailable Unavailab Scottie Davenport MD Unavailable Gina Quick MUSIC BOX MECHANIC Unavailable [phone] Violet Bryant Unavailable Unavailable Bryant White Status:Active (Active) Program category:Care Coordination Start date:06/01/2010 Enrollment date:06/01/2010 Related social drivers of health:Intimate Partner Violence, Alcohol Use, Tobacco Use, Financial Resource Strain, Depression, Stress,Food Insecurity, Transportation Needs, Housing Stability, Safety and Environment Case Team Name Relationship Phone Violet Bryant(Responsible Staff) Book Sorter Continued Care and Services Coordination
--- OUTSIDE RECORDS SUMMARY | 2025-11-12 07:56 | XMS_ITS | Encounter Summary ---
Author Organization [facility] Address [address] [place] [address] Care Team Providers Care Assembly Stock Supervisor Name Role Phone Kayleigh Del Cid MD Primary Care Provider [phone] Imtiaz Caraballo MD Unavailable Unavailab Scottie Davenport MD Unavailable Gina Quick NAMED ACCOUNT EXECUTIVE Unavailable [phone] Violet Bryant Unavailable Unavailable Reason for Visit * Reason Comments Med Refill Encounter Details Date Type Department Care Team (Late st Contact Info) Description 11/10/[address] [address] Kayleigh Del Cid MD [address] [place] [address] [address] [place] [address] Stage 3 chronic kidney disease, [...] 11/16/2025 9:30 AM EST Office Visit [address] [address] Scottie Solo MD [address] [place] [address] [address] [place] [address] 11/16/2025 10:30 AM EST Office Visit [address] [address] Kayleigh Del Cid MD [address] [place] [address] [address] [place] [address] 01/11/2026 8:15 AM EST Office Visit [facility] [address] [place] [address] Dirk Hoffman, OD [address] [facility] [address] [place] [address] 02/20/2026 10:10 AM EDT Office Visit [facility] [address] [place] [address] Gina Quick, NAMED ACCOUNT EXECUTIVE [address] [place] [address] 03/28/2026 1:40 PM EDT Office Visit [facility] [address] [place] [address] Jose Doty MD [address] [place] [address] documented as of this encounter Goals Goal [...] as of this encounter Care Teams Assembly Stock Supervisor Relationship Specialty Start Date End Date Kayleigh Del Cid MD [address] [facility] [address] [place] [phone] PCP - General Internal Medicine 04/02/23 Imtiaz Caraballo MD [facility] [address] [place] [address] Family Medicine 04/02/23 Scottie Solo MD [address] [place] [address] [address] [place] [address] Consulting Physician Infectious Diseases 01/09/24 Gina Quick APRN [address] [place] [address] Nurse Practitioner Urology 08/23/25 Violet Bryant Internet Sourcer Peripheral Edp Equipment Operator 09/28/25 documented as of this encounter
--- OUTSIDE RECORDS SUMMARY | 2025-11-12 07:56 | XMS_ITS | Clinical Summary ---
Author Organization [facility] , [facility] Address [address] [place] [address] Phone Care Team Providers Care Director Of Hospitality Name Role Phone Khris Dickerson MD Unavailable [phone] Ilya EDMONDSON, Wallace Primary Care Provider Unava ilable Reason for Visit and Chief Complaint Follow Up Problems Includes: Problems addressed during this encounter and other active Problems All Visits Onset Date Date of Diagnosis Resolved Date Provider Condition Status Lower Back Pain 03/21/2023 03/21/2023 Joni Hollis PA-C Active Last Documented On 5 1:41AM ; [facility] Plan of Treatment Pending Tests Order Diagnosis Results Due Ordering P rovider Radiology - CT/Myelogram Lumbar 03/21/23 Joni Hollis PA-C Last Documented On 3 11:57AM ; [facility] Assessments Includes: Assessments from this encounter No Assessments Recorded Medical Equipment - Implanted Devices Includes: Current Devices No Medical Equipment Recorded Medications Includes: Medications discussed during this encounter and other current Medications Current Medications (continue as prescribed) buPROPion HCl ER (XL) 300 MG Oral Tablet Extended Release 24 Hour 03/18/2023 Provider: Maranda shah Diagnosis: Last Documented On 3 9:05AM By Suyapa Webster ; [facility] Lisinopril 5 MG Oral Tablet 03/18/2023 Provider: Diagnosis: Last Documented On 3 9:05AM By Suyapa Webster ; [facility] Atorvastatin Calcium 80 MG Oral Tablet 03/17/2023 Pr ovider: Maranda Del Cid Diagnosis: Last Documented On 3 9:05AM By Suyapa Webster ; [facility], [facility] Clopidogrel Bisulfate 75 MG Oral Tablet 03/17/2023 P rovider: Maranda Del Cid Diagnosis: Last Documented On 3 9:05AM By Suyapa Webster ; [facility], [facility] Metoprolol Succinate ER 25 M G Oral Tablet Extended Release 24 Hour 03/17/2023 Provider: Maranda Nixon er Diagnosis: Last Documented On 3 9:05AM By Suyapa Webster ; [facility], [facility] Nortriptyline HCl 50 MG Oral Capsule 03/17/2023 Prov ider: Maranda Del Cid Diagnosis: Last Documented On 3 9:05AM By Suyapa Webster ; [facility], [facility] Pantoprazole Sodium 20 MG Or al Tablet Delayed Release 03/17/2023 Provider: Maranda Del Cid Diagnosis: Last Documented On 3 9:05AM By Suyapa Webster ; [facility], [facility] Tamsulosin HCl 0.4 MG Oral Capsule 03/17/2023 Provid er: Maranda Del Cid Diagnosis: Last Documented On 3 9:05AM By Suyapa Webster ; [facility], [facility] Repatha SureClick 140 MG/ML Subcutaneous Solution Auto-injector 03/11/2023 Provider: Diagnosis: Last Documented On 3 9:05AM By Suyapa Webster ; [facility], [facility] Naproxen 500 MG Oral Tablet 03/07/2023 Provider: MACHELLE DAO MD Diagnosis: Last Documented On 3 9:05AM By Suyapa Webster ; [facility], [facility] Pregabalin 25 MG Oral Capsule 02/27/2023 Provider: Diagnosis: Last Documented On 3 9:05AM By Suyapa Webster ; [facility], [facility] Diclofenac Sodium 1% External Gel 02/13/2023 Provide r: Diagnosis: Last Documented On 3 9:05AM By Suyapa Webster ; [facility], [facility] Medications Administered Includes: Administered Medications from this encounter No Administered Medications Recorded Results Includes: Results discussed during this encounter No Results Recorded For Specified Dates History of Present Illness Includes: History of Present Illness from this encounter No History of Present Illness Recorded Social History Description Last Updated Sex - Male 06/25/2024 Last Documented On 4 4:28PM ; [facility] Smoking Status Unknown Medical History Includes: Medical History addressed during this encounter No Medical History Recorded Family History Includes: Family History addressed during this encounter No Family History Recorded Review of Systems Includes: Review of Systems from this encounter No Review of Systems Recorded Physical Exam Includes: Physical Exam from this encounter No Physical Exam Recorded Allergies Includes: Active Allergies Substance Type Reaction Onset Date Resolved Date Statu s Morphine Sulfate Allergy 03/21/2023 Ac tive Last Documented On 3 9:11AM ; [facility] Care Director Of Hospitality Name (Identifier) Role/Relation Location/Telecom Last Documented By Khris Dickerson MD ([id number]) Assigned practitioner (occupation) [address] [place] [address], , [phone] tel: Last Documented On 06/25/2024 4:28PM ; [facility] Imtiaz Caraballo MD Primary care physici an (occupation) , Last Documented On 06/25/2024 4:28PM ; [facility] Payer Includes: Active Insurance Policies Plan Name (Payer ID) Coverage Type Member ID Group # Subscriber (ID) Relationship Effective Dates 1 - BCBS ([place]) Medicare ([id number]) [id number] Rk Rodriguez Self Last Documented On 3 8:32AM ; [facility]
--- OUTSIDE RECORDS SUMMARY | 2025-11-12 07:56 | XMS_ITS | Encounter Summary ---
Author Organization [facility] Address [address] [place] [address] Care Team Providers Care Regional Sales Associate Name Role Phone Magalis Ruiz Unavailable Unavailable Kayleigh Del Cid MD Primary Care Provider [phone] Imtiaz Caraballo MD Unavailable Unavailab Scottie Davenport MD Unavailable Gina Quick FREIGHT CAR INSPECTOR Unavailable [phone] Violet Bryant Unavailable Unavailable Reason for Visit * Reason Comments Med Refill Encounter Details Date Type Department Care Team (Late st Contact Info) Description 08/21/2023 Refill [facility] [address] [place] [address] Joana Echevarria MD [address] [facility] [address] [place] [address] Stage 3 chronic kidney disease, [...] Description 11/16/2025 9:30 AM EST Office Visit [address] [address] [place] [address] [place] [address] [address] [place] [address] 11/16/2025 10:30 AM EST Office Visit [address] [address] [place] [address] [place] [address] [address] [place] [address] 01/11/2026 8:15 AM EST Office Visit [facility] [address] [place] [address] Dirk Hoffman, OD [address] [place] [address] 02/20/2026 10:10 AM EDT Office Visit [facility] [address] [place] [address] Gina Quick M, FREIGHT CAR INSPECTOR [address] [place] [address] 03/28/2026 1:40 PM EDT Office Visit [facility] [address] [place] [address] Jose Doty MD [address] [place] [phone] documented as of this encounter Goals Goal [...] unspecified whether stage 3a or 3b CKD ([facility]) Arteriosclerosis of coronary artery documented in this [...] documented as of this encounter Care Teams Regional Sales Associate Relationship Specialty Start Date End Date Kayleigh Del Cid MD [address] [place] [address] PCP - General Internal Medicine 04/02/23 Magalis Ruiz Manager Fast Food Alterations Workroom Clerk 07/25/22 09/28/25 Imtiaz Caraballo MD [address] [place] [address] Family Medicine 04/02/23 Scottie Solo MD [address] [place] [address] Consulting Physician Infectious Diseases 01/09/24 Gina Quick APRN [id number] [place] [address] Nurse Practitioner Urology 08/23/25 Violet Bryant Manager Fast Food Alterations Workroom Clerk 09/28/25 documented as of this encounter
--- OUTSIDE RECORDS SUMMARY | 2025-11-12 07:56 | XMS_ITS | Encounter Summary ---
Author Organization [facility] Address [address] [place] [address] Care Team Providers Care Dial Equipment Engineer Name Role Phone Santiago Vital Unavailable Unavailable Kayleigh Del Cid MD Primary Care Provider [phone] Magalis Ruiz Unavailable Unavailable Kayleigh Del Cid MD Primary Care Provider [phone] Imtiaz Caraballo MD Unavailable Unavailab Scottie Davenport MD Unavailable Gina Quick LOIN PULLER Unavailable [phone] Violet Bryant Unavailable Unavailable Reason for Visit * Reason Comments Med Refill Encounter Details Date Type Department Care Team (Late st Contact Info) Description 09/03/2021 Refill [facility] [address] [place] [address] Kayleigh Del Cid MD [address] [facility] [address] [place] [address] Social History Tobacco Use Types [...] Description 11/16/2025 9:30 AM EST Office Visit [address] [address] Scottie Solo MD [address] [place] [address] [address] [place] [address] 11/16/2025 10:30 AM EST Office Visit [address] [address] Kayleigh Del Cid MD [address] [place] [address] [address] [place] [address] 01/11/2026 8:15 AM EST Office Visit [facility] [address] [place] [address] Dirk Hoffman, OD [address] [place] [address] 02/20/2026 10:10 AM EDT Office Visit [facility] [address] [place] [address] Gina Quick M, LOIN PULLER [address] [place] [address] 03/28/2026 1:40 PM EDT Office Visit [facility] [address] [place] [address] Jose Doty MD [address] [place] [address] documented as of this encounter Goals Goal [...] documented as of this encounter Care Teams Dial Equipment Engineer Relationship Specialty Start Date End Date Kayleigh Del Cid MD [address] [place] [phone] PCP - General 04/13/21 04/01/23 Kayleigh Del Cid MD [address] [place] [phone] PCP - General Internal Medicine 04/02/23 Santiago Vital [phone] 06/01/10 07/25/22 Magalis Ruiz Train Control Technician Housekeeper/Custodian/Laundry Worker 07/25/22 09/28/25 Imtiaz Caraballo MD Family Medicine 04/02/23 Scottie Solo MD [address] [facility] [address] [place] [address] Consulting Physician Infectious Diseases 01/09/24 Gina Quick APRN [address] [facility] [address] [place] [address] Nurse Practitioner Urology 08/23/25 Violet Bryant Train Control Technician Housekeeper/Custodian/Laundry Worker 09/28/25 documented as of this encounter
--- OUTSIDE RECORDS SUMMARY | 2025-11-12 07:56 | XMS_ITS | Encounter Summary ---
Author Organization [facility] Address [address] [place] [address] Care Team Providers Care Personalization Specialist Name Role Phone Magalis Ruiz Unavailable Unavailable Kayleigh Del Cid MD Primary Care Provider [phone] Imtiaz Caraballo MD Unavailable Unavailab Scottie Davenport MD Unavailable Gina Quick EINSTEIN BROS BAGELS ASSISTANT MANAGER Unavailable [phone] Violet Bryant Unavailable Unavailable Reason for Visit * Reason Comments Med Refill Encounter Details Date Type Department Care Team (Late st Contact Info) Description 03/02/2024 Refill [id number] [place] [address] [place] [address] [place] [address] [address] [place] [address] Benign prostatic hyperplasia without lower urinary tract [...] 11/16/2025 9:30 AM EST Office Visit [address] [address] [place] [address] [place] [address] 100 [place] [address] 11/16/2025 10:30 AM EST Office Visit [address] [address] Kayleigh Del Cid MD [address] [place] [address] 100 [place] [address] 01/11/2026 8:15 AM EST Office Visit [facility] [address] [place] [address] Dirk Hoffman, OD [address] [place] [address] 02/20/2026 10:10 AM EDT [facility] [address] [place] [address] Gina Quick M, EINSTEIN BROS BAGELS ASSISTANT MANAGER [address] [place] [address] 03/28/2026 1:40 PM EDT Office Visit [facility] [address] [place] [address] Jose Doty MD [address] [place] [address] documented as of this encounter Goals Goal [...] documented as of this encounter Care Teams Personalization Specialist Relationship Specialty Start Date End Date Kayleigh Del Cid MD [address] [place] [address] PCP - General Internal Medicine 04/02/23 Magalis Ruiz Exhaust And Muffler Fitter Open Claims Representative 07/25/22 09/28/25 Imtiaz Caraballo MD [address] [place] [address] Family Medicine 04/02/23 Scottie Solo MD [address] [place] [address] Consulting Physician Infectious Diseases 01/09/24 Gina Quick, TAQUERIA [address] [address] Nurse Practitioner Urology 08/23/25 Violet Bryant Exhaust And Muffler Fitter Open Claims Representative 09/28/25 documented as of this encounter
--- OUTSIDE RECORDS SUMMARY | 2025-11-12 07:56 | XMS_ITS | Data Portability ---
Author Organization [facility] Address [address] [place] [address] Assessment Encounter Date Assessment Date Assessment LastModified [...] Imaging XR, thoracic spine, 2 view 2024 [facility], [address] [place] [address], [address], 5 15:52:59 XR, lumbosacral spine, 2 or 3 view [address], [address], 5 15:53:47 XR, tibia + fibula, 2 view [address], [address], 4 15:49:41 US, duplex, venous, lower extremity 2023 024 [facility], [address] [facility], [place], [address], 4 14:22:18 Medication Orders cyclobenzap rine 10 mg tablet 2024 025 [facility], [address] [place], [address], 5 14:19:58 Kenalog 40 mg/mL suspension for injection 2024 025 [email or web address] Not available 5 14:04:19 Depo-Medrol 80 mg/mL suspension for injection 2023 024 [email or web address] [facility], [address] [place], [address], 5 17:02:34 prednisone 10 mg tablets in a dose pack 2023 024 [facility], [address] [place], [address], 09:40:05 hydrocortis one 2.5 % topical cream 2023 024 [facility], [address] [place], [address], 14:52:45 Patient TargetsNo targets recorded. Patient Instructions Encounter Date Encounter Id Patient Instructions Last Modified By Organization Details Last Modified Time 09/01/2024 [id number] weight managemen t education Not available 09/01/2024 09:54:50 learning about healthy weight Not available 09/01/2024 09:54:50 12/15/2024 [id number] shortness of breath: care instructions Not available 12/18/2024 09:08:50 04/01/2025 [id number] back pain: care instructions [email or web address] Not available 04/01/2025 13:34:22 Reason for Referral None Reported. Results Created Date Observation Date Name Description Value Unit Range Abnormal Flag Note LastModifiedBy Organization Detail LastModifiedTime 06/22/20 24 XR, tibia + fibul a, 2 view No observ ation record ed. [email or web address] [address], [address], 06/23/2024 09:57:39 06/23/20 24 US, duple x, venou s, lower extre mity No observ ation record ed. [email or web address] [facility] [address] [facility], [place], [address], 06/25/2024 16:23:13 04/01/20 25 XR, thora cic spine , 2 view No observ ation record ed. [email or web address] [address], [address], 04/04/2025 14:21:41 04/01/20 25 XR, lumbo sacra l spine , 2 or 3 view No observ ation record ed. [email or web address] [address], , [address], 04/04/2025 14:21:41 11/11/2008/21/2016 colon oscop y proce dure (PROC ) No observ ation record ed. [email or web address] Not Available 11/11 18:13:39 Result Notes None recorded. Problems Name Problem SNOMED Code Status Onset Date Resolution Date Notes Provider Name and Address Organization Details Recorded Time Diarrhea 84348991 Active 2020 Problem Code: R19.7; Problem Code Type: ICD-10; Not Available [facility] 21:58:56 Nausea 379701531 Completed 202105/13/2024 Problem Code: R11.0; Problem Code Type: ICD-10; Tanika Stark APRN [address] [place] [address], [address] , [employer] 4 15:00:19 Nausea and vomiting 59949994 Completed 202105/13/2024 Problem Code: R11.2; Problem Code Type: ICD-10; Tanika Stark APRN [address] [place] [address], [address] , [employer] 4 15:00:23 Chronic low back pain 098013423 Active 2022 Tanika Stark APRN [address] [place] [address], [address] , [employer] 4 14:59:55 Pain of right calf 73107526365 46924 Completed 202205/13/2024 Tanika Stark APRN [address] [place] [address], [address] , [employer] 4 15:00:04 Gastroes ophageal reflux disease without esophagi tis 873657119 Active 2023 Tanika Stark APRN [address] [place] [address], [address] , [place] [employer] 4 14:59:57 Acute back pain with sciatica 121317031 Active 2023 Tanika Stark APRN [address] [place] [address], [address] , [place] [employer] 4 14:59:53 Insect bite - wound 327504505 Completed 202309/01/2024 Tanika Stark APRN [address] [place] [address], [address] , [employer] 4 10:02:24 Human immunode ficiency virus infectio n 44804545 Active 2023 Tanika Stark APRN [address] [place] [address], [address] , [employer] 4 10:01:23 Chronic kidney disease 614151948 Active 2023 Tanika Stark APRN [address] [place] [address], [address] , [employer] 4 10:02:38 Coronary arterios clerosis 25848885 Active 2023 Tanika Stark APRN [address] [place] [address], [address] , [employer] 4 10:02:44 Edema of right lower limb 113059103 Active 2024 Tanika Stark APRN [address] [place] [address], [address] , [employer] 5 09:09:38 Pain in right lower limb 640524766 Active 2024 Tanika Stark APRN [address] [place] [address], [address] , [employer] 5 09:09:41 Dyspnea 366918594 Active 2024 Tan[address] GavinyDAWNN [address] [place] [address], [address] , [employer] 5 09:09:37 Recurren t falls 660713485 Active 2024 Tanika Stark, CHIEF WARDEN [address] [place], [place], [address] [place] [address] , [employer] 5 09:09:43 Hyperten sive disorder 18798457 Active 2024 Tanika Stark, CHIEF WARDEN [address] [place] [address], [address] [place] [address] , [employer] 5 09:09:40 Backache 420182934 Active 2024 NIYAH GERBER CHIEF WARDEN [address] [place] [address], [address] [place] [address] , [employer] 5 13:31:51 Backache with radiatin g pain 684670105 Active 2024 NIYAH GERBER [place] [address] , [employer] 5 13:32:03 Problem Notes None recorded. Procedures Surgical History Date Name Laterality Status Provider Name and Address Organization Details Recorded Time placement of stent in coronary artery completed Not Available [facility] 08/06/2022 22:56:14 Imaging Results None recorded. Procedure Notes None recorded. Medical Equipment None Reported. Allergies Allergen ID Allergen Name Allergen Category Reaction Reaction Severity Criticality Documentation Date Start Date Code Code System Note Provider Name and Address Organization Details Recorded Time 92152 morphine medicatio n Not available Not available Not available 08/06/2022 7052 RxNorm Not Available [facility] 2 22:56:18 88391 morphine sulfate medicatio n Not available Not available Not available 11/09/20252022 49604 RxNorm Not Available [facility] - External [employer] - prod 5 08:48:40 Medications Name Sig Start Date Stop Date [...] 1 capsule (25 mg) by oral route qhs 09/02 completed Not Available Not Available Not [...] Updated DateTime 5 162.56 cm 28.4 kg/m2 08646.1 4 g 98.4 [degF] 70 /min 92 % 209/93 mm[Hg] 200/93 mm[Hg] 190/88 mm[Hg] 184/86 mm[Hg] Dionne Donovan [employer] 5 17:24:12 Date Recorded Body height Body mass index (BMI) Body weight Heart rate Oxygen saturation Systolic And Diastolic Provider Name and Address Organization Details Last Updated DateTime 5 162.56 cm 24.4 kg/m2 34476.1 2 g 91 /min 95 % 138/67 mm[Hg] Judith Maravilla [employer] 5 13:18:07 Date Recorded Body height Body mass index (BMI) Body weight Body temperature Heart rate Oxygen saturation Systolic And Diastolic Provider Name and Address Organization Details Last Updated DateTime 4 162.56 cm 25.6 kg/m2 63618.9 8 g 97.9 [degF] 66 /min 93 % 135/67 mm[Hg] Tarah Young [employer] 4 14:29:49 Date Recorded Body height Body mass index (BMI) Body weight Body temperature Heart rate Oxygen saturation Systolic And Diastolic Provider Name and Address Organization Details Last Updated DateTime 4 162.56 cm 26.2 kg/m2 13972.2 g 98 [degF] 80 /min 93 % 136/39 mm[Hg] JACEY KATH [employer] 4 13:51:25 Date Recorded Body height Body mass index (BMI) Body weight Heart rate Oxygen saturation Systolic And Diastolic Provider Name and Address Organization Details Last Updated DateTime 4 162.56 cm 26.4 kg/m2 30957.2 2 g 61 /min 99 % 137/68 mm[Hg] Dionne Donovan [employer] 4 09:37:57 Social History Question Answer Notes LastModified by Organizat ion Details LastModified Time Tobacco Smoking Status Never Smoker Tarah cool [employer] 08/19/2023 11:34:13 Do You Have An Advance Directive? No [email or web address] Information n ot available 09/17/2023 Is Your [...] Do You Have A Medical Power Of Bioinformatician? No [email or web address] Information not available 09/17/2023 What Was The [...] Do You Participate In Social Media? Yes [email or web address] Information not available 09/01/2024 What Types Of Sporting Activities Do You Participate In? Basketball Information not available 08/19/2023 Do You Use Sunscreen Routinely? No Information not available 08/19/2023 Has Tobacco Cessation Counseling Been Provided? No [email or web address] Information not available 09/17/2023 Have You Recently Traveled Abroad? No Information not available 08/19/2023 Do You Have Difficulty Walking Or Climbing Stairs? Yes Information not available 08/19/2023 Do You Have Any Dietary Restrictions? No [email or web address] Information not available 09/01/2024 Sex: Male Functional [...] 08/19/2023 Do you have transportation difficulties? No [email or web address] Information not available 09/01/2024 Are you able [...] anxious, or unable to sleep at night)? [id number] [email or web address] Information not available 09/01/2024 Do you have difficulty concentrating, remembering or making decisions? Yes Information no t available 08/19/2023 Are you or have you been involved with bullying? No Information not available 08/19/2023 Family History Relationship Description Onset Age of this Age Resolved Age Notes LastModified by Organization Details LastModified Time Father No current problems or disability [email or web address] Not available 12:53:51 Mother No current problems or disability [email or web address] Not available 12:53:51 Medical History Condition Response Coronary Artery Disease Y Emergency room visit since last appointm ent. N Acid Reflux (GERD) Y High Cholesterol Y Kidney Disease Y Hospitalizations N Substance Abuse Y Heart Disease Y Hypertension Y Immunizations Vaccine Type Date Status Note Provider Nam e and Address Organization Details Recorded Time COVID-19, mRNA, LNP-S, PF, 100 mcg/0.5mL dose or 50 mcg/0.25mL dose 1 completed Tarah Hector null, [employer] 09/10/2023 15:32:53 COVID-19, mRNA, LNP-S, PF, 100 mcg/0.5mL dose or 50 mcg/0.25mL dose 1 completed Tarah Nolan null, [employer] 09/10/2023 15:32:53 zoster recombinant 0 completed Tarah Nolan null, [employer] 09/10/2023 15:32:53 zoster recombinant 0 completed Tarah Hector null, [employer] 09/10/2023 15:32:53 Influenza, high-dose, quadrivalent, PF 0 completed Tarah Hector null, [employer] 09/10/2023 15:32:53 Influenza, high-dose, quadrivalent, PF 1 completed Tarah Nolan null, [employer] 09/10/2023 15:32:53 COVID-19, mRNA, LNP-S, PF, 100 mcg/0.5mL dose or 50 mcg/0.25mL dose 1 completed Tarah Hector null, [employer] 09/10/2023 15:32:53 Pneumococcal conjugate PCV20, polysaccharide [id number] conjugate, adjuvant, PF 3 completed Tarah Nolan null, [employer] 09/10/2023 15:32:53 COVID-19, mRNA, LNP-S, bivalent, PF, 50 mcg/0.5 mL or 25mcg/0.25 mL dose 2 completed Tarah Nolan null, [employer] 09/10/2023 15:32:53 Tdap 0 completed Tarah Nolan null, [employer] 09/10/2023 15:32:53 Influenza, split virus, trivalent, preservative 0 completed Tarah Nolan null, [employer] 09/10/2023 15:32:53 Hep B, adult 4 completed Tarah Hector null, [employer] 09/10/2023 15:32:53 meningococcal MCV4P 8 completed Tarah Nolan null, [employer] 09/10/2023 15:32:53 influenza, seasonal, intradermal, preservative free 4 completed Tarah Nolan null, [employer] 09/10/2023 15:32:53 Influenza, split virus, quadrivalent, PF 2 completed Tarah Nolan null, [employer] 09/10/2023 15:32:53 Influenza, split virus, quadrivalent, PF 9 completed Tarah Nolan null, [employer] 09/10/2023 15:32:53 Influenza, split virus, quadrivalent, PF 8 completed Tarah Hector null, [employer] 09/10/2023 15:32:53 Influenza, high-dose, quadrivalent, PF 4 completed Tarah Nolan null, [employer] 05/13/2024 14:29:56 COVID-19, mRNA, LNP-S, PF, ambreen-sucrose, 30 mcg/0.3 mL 4 completed Tarah Nolan null, [employer] 05/13/2024 14:29:56 Meningococcal MCV4O 4 completed Tarah Hector null, [employer] 05/13/2024 14:29:56 RSV, recombinant, protein subunit RSVpreF, adjuvant reconstituted, 0.5 mL, PF 4 completed Not Available [facility] 04/01/2025 12:48:02 Influenza, high-dose, trivalent, PF 4 completed Not Available [facility] 04/01/2025 12:48:02 COVID-19, mRNA, LNP-S, PF, ambreen-sucrose, 30 mcg/0.3 mL 4 completed Not Available [facility] 04/01/2025 12:48:02 Past Encounters Encounter ID Performer Location Encounter Start Date Encounter Closed Date Diagnosis/Indication Diagnosis SNOMED-CT Code Diagnosis ICD10 Code Diagnosis IMO Codes Diagnosis Note [id number] Alicia Edgard [place] [address] 08/19/2023 10:50:41 08/19/2023 11:52:30 Dyspnea 518897174 R06.00 Crushing i njury of chest 83527079 S28.0XXA Body mass index 20-24 - normal 300345946 Z68.23 [id number] Alicia Rene [place] [address] 09/02/2023 13:55:47 09/02/2023 14:55:12 Fatigue 93794683 R53.83 Hyperlipidemia 60166420 E78.5 Vitamin D deficiency 347 72014 E55.9 Vitamin B deficiency 479 88771 E53.9 Pain in ri ght lower limb 512299276 M79.604 Body mass index 20-24 - normal 343126239 Z68.23 [id number] GINNY BOSTON [place] [address] 09/10/2023 15:14:31 09/10/2023 17:50:39 Chronic low back pain 130247700 M54.50 [id number] GINNY BOSTON [place] [address] 09/17/2023 12:48:17 09/17/2023 14:00:10 Pain of right calf 4605950583 639797 M79.172 [id number] [place] [address] 03/18/2024 10:47:27 03/18/2024 11:33:22 Tick bite 54831441 W57.XXXA [id number] [place] [address] 03/31/2024 16:09:13 03/31/2024 16:32:38 Gastroesophageal reflux disease without esophagitis 381642571 K21.9 [id number] Tanika [place] [address] 05/13/2024 14:18:02 05/13/2024 15:04:24 Insect bite - wound 411299002 T14.8XXA Acute back pain with sciatica 746795802 M54.41 [id number] Yoly [place] [address] 06/22/2024 13:37:26 06/22/2024 14:29:11 Pain in right lower limb 374632224 M79.604 Lipscomb filter (Right)Obt ain x ray and rule out dvt. sherie FLANAGAN. Body mass index 25-29 - overweight 526412559 Z68.26 [id number] Tan[place] [address] 09/01/2024 09:07:26 09/01/2024 10:21:44 Body mass index 25-29 - overweight 534484389 Z68.26 Acute back pain with sciatica 765537475 M54.41 Chronic ki dney disease 848045557 N18.9 [id number] Tanika Stark [place] [address] 12/15/2024 16:50:52 12/20/2024 15:22:11 Edema of right lower limb 324966506 R60.0 Pain in ri ght lower limb 744254444 M79.604 Dyspnea 570435679 R06.00 Recurrent falls 24024021 2 R29.6 Hypertensive disorder 38 341228 I10 [id number] NIYAH GERBER APRN [address] [address] 04/01/2025 12:44:43 04/01/2025 14:48:07 Backache with radiating pain 451372382 M54.9 [id number] Rest. Alternate ice and heat for comfort.x- [...] [employer] (MEDICARE REPLACEMENT/AD VANTAGE - PPO) Rk Jennifer [id number] Rk Jennifer 04/01/2025 1 [place] H[place] [id number] Rk E [place] [id number] Rk [place] 04/01/2025 [place] [facility] [id number] Rk E Jennifer [id number] Rk Jennifer 08/19/2023 1 *SELF PAY* [place] 09/01/2024 1 *SELF PAY* [place] 04/01/2025 1 [employer] (MEDICARE REPLACEMENT/AD VANTAGE - PPO) [id number] Rk E [place] [id number] Rk [place] 04/01/2025 1 [place]MED[place] H[place] [id number] Rk E [place] [id number] Rk [place] Notes Date Note Type Note Provider Name [...] outside this morning. Tanika Stark APRN [address] [place], [address], [facility] [place]. 05/13/2024 15:02:17 4 text/html Musculoskeletal PainReported by [...] clinic. He says he was seen in [facility] emergency department approx 6 weeks ago for back pain and was given a shot in my back in the ER. He states since that injection he has had pain in right lateral lower leg with edema that worsens with weight bearing. he denies injury. He has PAD with hx nelson filter placed in right femoral for hx DVT. He also has HIV, CAD and cannot take NSAIDS due to CKD. Yoly Mota CHIEF WARDEN [address] [place], [address], [employer] 06/22/2024 14:16:37 4 text/html Patient presents for [...] fall or trauma. Tanika Stark APRN [address] [place], [address], [employer] 09/01/2024 10:40:32 5 text/html Patient presents for evaluation of right lower extremity swelling and pain. States it started two days ago. States no erythema. He has fallen several times. Today he fell when he was in [place]. States he felt weak all over and then fell to the ground. THis has happened 6-7 times in the last 3-4 weeks.Since his fall this afternoon he has been short of breath. The swelling started before the fall. Tanika Stark APRN [address] [place], [address], [employer] 12/18/2024 09:09:45 5 text/html ROS as [...] or bladder ability. NIYAH GERBER APRN [address] [place], [address], [employer] 04/01/2025 14:46:00
--- OUTSIDE RECORDS SUMMARY | 2025-11-12 07:56 | XMS_ITS | Encounter Summary ---
Author Organization [facility] Address [address] [place] [address] Care Team Providers Care Sales Executive Insurance Name Role Phone Magalis Ruiz Unavailable Unavailable Kayleigh Del Cid MD Primary Care Provider [phone] Imtiaz Caraballo MD Unavailable Unavailab Scottie Davenport MD Unavailable Gina Quick LOADING SUPERVISOR Unavailable [phone] Violet Bryant Unavailable Unavailable Reason for Visit * Reason Onset Date Comments HCN Clinical Concern/Question 09/26/2025 Encounter Details Date Type Department Care Team (Late st Contact Info) Description 09/26/2025 Telephone [facility] [address] [place] [address] Jose Doty MD [address] [place] [address] HCN Clinical Concern/Question Social [...] he can obtain refills. Best contact number: [phone] Ok to leave a Optimal time of [...] will receive notification of the communication/outcome via Authoreat. documented in this encounter Plan of Treatment Upcoming Encounters Date Type Department Care Team (Late st Contact Info) Description 11/16/2025 9:30 AM EST Office Visit [place] [address] [address] [place] [address] [place] [address] [address] [place] [address] 11/16/2025 10:30 AM EST Office Visit [address] [address] Kayleigh Del Cid MD [address] [place] [address] [address] [place] [address] 01/11/2026 8:15 AM EST Office Visit [facility] [address] [place] [address] Dirk Hoffman, OD [address] [place] [address] 02/20/2026 10:10 AM EDT Office Visit [facility] [address] [place] [address] Gina Quick M, LOADING SUPERVISOR [address] [place] [address] 03/28/2026 1:40 PM EDT Office Visit [facility] [address] [place] [address] Jose Doty MD [address] [place] [address] documented as of this encounter Goals Goal Patient Goal Type Associated Problems Recent Progress Patient-Stated? Author Patient to remain active in HIV care Care Plan Treatment Adherence On track(2024 11:44 AM EDT) Ceec Olivera Patient to remain active on part [...] as of this encounter Care Teams Sales Executive Insurance Relationship Specialty Start Date End Date Kayleigh Del Cid MD [address] [place] [address] 100 [place], [place] PCP - General Internal Medicine 04/02/23 Magalis Ruiz Fleet Administrator Ash Handler 07/25/22 09/28/25 Imtiaz Caraballo MD [address] [place] [address] 100 [place], [place] Family Medicine 04/02/23 Scottie Solo MD [address] [place] [address] 100 [place], [place] Consulting Physician Infectious Diseases 01/09/24 [facility]ina Quick [facility] [address] [facility] [address] [place] [address] Nurse Practitioner Urology 08/23/25 Violet Bryant Fleet Administrator Ash Handler 09/28/25 documented as of this encounter
--- OUTSIDE RECORDS SUMMARY | 2025-11-12 07:56 | XMS_ITS | Encounter Summary ---
Author Organization [facility] Address [address] [place] [address] Care Team Providers Care Microsoft Developer Name Role Phone Magalis Ruiz Unavailable Unavailable Kayleigh Del Cid MD Primary Care Provider [phone] Imtiaz Caraballo MD Unavailable Unavailab Scottie Davenport MD Unavailable Gina Quick FLUTE TEACHER Unavailable [phone] Violet Bryant Unavailable Unavailable Reason for Visit * Reason Comments Med Refill Encounter Details Date Type Department Care Team (Late st Contact Info) Description 05/24/[address] [address] Kayleigh Del Cid MD [address] [place] [address] [address] [place] [address] Depression, unspecified depression type Social [...] Description 11/16/2025 9:30 AM EST Office Visit [address] [address] [place] [address] [place] [address] [address] [place] [address] 11/16/2025 10:30 AM EST Office Visit [address] [address] Kayleigh Del Cid MD [address] [place] [address] [address] [place] [address] 01/11/2026 8:15 AM EST Office Visit [facility] [address] [place] [address] Dirk Hoffman, OD [address] [place] [address] 02/20/2026 10:10 AM EDT Office Visit [facility] [address] [place] [address] Gina Quick M, FLUTE TEACHER [address] [place] [address] 03/28/2026 1:40 PM EDT Office Visit [facility] [address] [place] [address] Jose Doty MD [address] [place] [phone] documented as of this encounter Goals Goal [...] documented as of this encounter Care Teams Microsoft Developer Relationship Specialty Start Date End Date Kayleigh Del Cid MD [address] [place] [address] PCP - General Internal Medicine 04/02/23 Magalis Ruiz Mortising Machine Operator Chamber Worker 07/25/22 09/28/25 Imtiaz Caraballo MD [address] [place] [address] Family Medicine 04/02/23 Scottie Solo MD [address] [place] [address] Consulting Physician Infectious Diseases 01/09/24 Gina Quick APRN [address] [place] [address] [phone] Nurse Practitioner Urology 08/23/25 Violet Bryant Mortising Machine Operator Chamber Worker 09/28/25 documented as of this encounter
--- OUTSIDE RECORDS SUMMARY | 2025-11-12 07:56 | XMS_ITS | Clinical Summary ---
Author Organization [facility] Address [address] [place] [address] Phone Care Team Providers Care Apple Thinner Name Role Phone Khris Dickerson MD Unavailable [phone] Ilya EDMONDSON, [place] Primary Care Provider Unava ilable Reason for Visit and Chief Complaint The Chief Complaint is: Low back pain Problems Includes: Problems addressed during this encounter and other active Problems Current Visit Onset Date Date of Diagnosis Resolved Date Provider Condition Status Lower Back Pain 03/21/2023 03/21/2023 Joni Hollis PA-C Active Last Documented On 1:41AM ; [facility] Plan of Treatment Fall Risk Assessment: [...] with the patient. - Last Documented On 03/21/2023 11:57AM ; [facility] Patient was seen by myself Joni Hollis PA-C. Patient will follow up with myself and Dr. Dickerson after we get a CT myelogram of the lumbar spine I would think the filter possibly could interfere with the MRI pictures with him. He will need to be off the Plavix prior to doing the CT myelogram we will need to get clearance from his general maintenance helper go off the Plavix. - Last Documented On 03/21/2023 11:57AM ; [facility] Pending Tests Order Diagnosis Results Due Ordering P rovider Radiology - CT/Myelogram Lumbar 03/21/23 Joni Hollis PA-C Last Documented On 3 11:57AM ; [facility] Instructions to patient Lose weight Last Documented On 3 9:06AM ; [facility] Assessments Includes: Assessments from this encounter Findings Low back pain possible spinal stenosis - Last Documented On 03/21/2023 11:57AM ; [facility] Instructions Includes: Instructions from this encounter Instructions to patient Lose weight Last Documented On 3 9:06AM ; [facility] Medical Equipment - Implanted Devices Includes: Current Devices No Medical Equipment Recorded Medications Includes: Medications discussed during this encounter and other current Medications Current Medications (continue as prescribed) buPROPion HCl ER (XL) 300 MG Oral Tablet Extended Release 24 Hour 03/18/2023 Provider: Maranda Nixon er Diagnosis: Last Documented On 3 9:05AM By Suyapa Webster ; [facility] Lisinopril 5 MG Oral Tablet 03/18/2023 Provider: Diagnosis: Last Documented On 3 9:05AM By Suyapa Webster ; [facility] Atorvastatin Calcium 80 MG Oral Tablet 03/17/2023 Pr ovider: Maranda Del Cid Diagnosis: Last Documented On 3 9:05AM By Suyapa Webster ; [facility] Clopidogrel Bisulfate 75 MG Oral Tablet 03/17/2023 Elizabeth esposito: Maranda Del Cid Diagnosis: Last Documented On 3 9:05AM By Suyapa Webster ; [facility] Metoprolol Succinate ER 25 M G Oral Tablet Extended Release 24 Hour 03/17/2023 Provider: Maranda Nixon er Diagnosis: Last Documented On 3 9:05AM By Suypaa Webster ; [facility] Nortriptyline HCl 50 MG Oral Capsule 03/17/2023 Prov ider: Maranda Del Cid Diagnosis: Last Documented On 3 9:05AM By Suyapa Webster ; [facility] Pantoprazole Sodium 20 MG Or al Tablet Delayed Release 03/17/2023 Provider: Maranda Del Cid Diagnosis: Last Documented On 3 9:05AM By Suyapa Webster ; [facility] Tamsulosin HCl 0.4 MG Oral Capsule 03/17/2023 Provid er: Maranda Del Cid Diagnosis: Last Documented On 3 9:05AM By Suyapa Webster ; [facility] Repatha SureClick 140 MG/ML Subcutaneous Solution Auto-injector 03/11/2023 Provider: Diagnosis: Last Documented On 3 9:05AM By Suyapa Webster ; [facility] Naproxen 500 MG Oral Tablet 03/07/2023 Provider: MACHELLE DAO MD Diagnosis: Last Documented On 3 9:05AM By Suyapa Webster ; [facility] Pregabalin 25 MG Oral Capsule 02/27/2023 Provider: Diagnosis: Last Documented On 3 9:05AM By Suyapa Webster ; [facility] Diclofenac Sodium 1% External Gel 02/13/2023 Provide r: Diagnosis: Last Documented On 3 9:05AM By Suyapa Webster ; [facility] Medications Administered Includes: Administered Medications from this encounter No Administered Medications Recorded Vital Signs Includes: Vital Signs from this encounter Vital Name 03/21/2023 09:05A Height (in) 65 Weight (lb) 150 Body Mass Index 25 Body Surface Area 1.8 Note: mg Last Documented: On 03/21/2023 9:09AM ; [facility] Results Includes: Results discussed during this encounter No Results Recorded For Specified Dates History of Present Illness Includes: History of Present Illness from this encounter LATASHA Rodriguez is a 72 year old male. - Symptoms nothing makes the pain better, standing and bending makes the pain worse. - Allergy list reviewed - Problem list reviewed - Medication list reviewed - Previous history of new onset pain 2003 Injury is not work related or an automotive accident. lifting - Sudden onset - Pain is constant (100% of the time) - Pain is throbbing - Patient pain level from 1-10: 8 - No previous treatment. Patient is complaining of lower back pain that will radiate down the back of the left leg into the gastroc this has been ongoing for about 2 months he has a history of having back pain for about 20 years though this leg pain has been has been present recently. 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 He believes the clot was in his abdominal area. He presently denies any bowel or bladder issues with that he rates his pain at a 10 and gets worse when he tries to stand or walk it does get relief with sitting and has had no previous back surgery Social History Description Last Updated Recent change in diet 03/21/2023 Last Documented On 3 11:57AM ; [facility] Caffeine use 03/21/2023 Last Documented On 3 11:57AM ; [facility] Not a current smoker. 03/21/2023 Last Documented On 3 11:57AM ; [facility] Not exercising regularly 03/21/2023 Last Documented On 3 11:57AM ; [facility] Not using alcohol 03/21/2023 Last Documented On 3 11:57AM ; [facility] Not using drugs 03/21/2023 Last Documented On 3 11:57AM ; [facility] Retired from work 03/21/2023 Last Documented On 3 11:57AM ; [facility] Tobacco non-user 03/21/2023 Last Documented On 3 11:57AM ; [facility] Sex - Male 06/25/2024 Last Documented On 4 4:28PM ; [facility] Smoking Status Unknown Procedures and Surgical History Includes: Procedures from this encounter Procedures Code Diagnosis Performing Provider Service L ocation Service Date use of tobacco assessment performed 1000F Last Documented On 3 9:06AM ; [facility] patient screened for future fall risk: documentation of any fall with injury in past year 1100F Last Documented On 3 9:06AM ; [facility] an X-ray was performed 24241 Last Documented On 3 9:57AM ; [facility] an MRI was performed 13232 Last Documented On 3 9:57AM ; [facility] Medical History Includes: Medical History addressed during this encounter Description Last Updated 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 03/21/2023 Last Documented On 3 11:57AM ; [facility] History of arthritis 03/21/2023 Last Documented On 3 11:57AM ; [facility] History of Heart Attack 03/21/2023 Last Documented On 3 11:57AM ; [facility] History of Heartburn / Acid Reflux 03/21 Last Documented On 3 11:57AM ; [facility] History of Hypertension 03/21/2023 Last Documented On 3 11:57AM ; [facility] Family History Includes: Family History addressed during this encounter Description Last Updated No significant family history 03/21/2023 Last Documented On 3 11:57AM ; [facility] Review of Systems Includes: Review of [...] Description No anxiety Last Documented On 3 9:58AM ; [facility] Physical Exam Includes: Physical Exam from this encounter Allergies Includes: Active Allergies Substance Type Reaction Onset Date Resolved Date Statu s Morphine Sulfate Allergy 03/21/2023 Ac tive Last Documented On 3 9:11AM ; [facility] Care Apple Thinner Name (Identifier) Role/Relation Location/Telecom Last Documented By Khris Dickerson MD ([id number]) Assigned practitioner (occupation) [address] [place] [address], , [phone] tel: Last Documented On 06/25/2024 4:28PM ; [facility] Imtiaz Caraballo MD Primary care physici an (occupation) , Last Documented On 06/25/2024 4:28PM ; [facility] Encounters Encounter Provider Location (Healthcare Service Location) Date Check-In Time Check-Out Time Diagnosis Encounter Disposition Physician Specified Joni Hollis PA-C [facility] 2022 8:34AM 9:40AM Payer Includes: Active Insurance Policies Plan Name (Payer ID) Coverage Type Member ID Group # Subscriber (ID) Relationship Effective Dates 1 - BCBS ([place] Medicare ([id number]) [id number] Rk Rodriguez Self Last Documented On 3 8:32AM ; [facility] Clinical Notes Includes: Clinical Notes from this encounter * Progress note Date Encounter Last Documented by 03/21/2023 Physician Specified Last huyen lino on 03/21/2023; 11:57 AM, Joni Hollis PA-C; [facility] Active Problems & Conditions - Lower Back Pain Chief Complaint The Chief Complaint is: Low back pain. Referred Here Referred by Self. History of Present Illness Rk Rodriguez is a 72 year old male. - Symptoms nothing makes the pain better, standing and bending makes the pain worse. - Allergy list reviewed - Problem list reviewed - Medication list reviewed - Previous history of new onset pain 2003 Injury is not work related or an automotive accident. lifting - Sudden onset - Pain is constant (100% of the time) - Pain is throbbing - Patient pain level from 1-10: 8 - No previous treatment. Patient is complaining of lower back pain that will radiate down the back of the left leg into the gastroc this has been ongoing for about 2 months he has a history of having back pain for about 20 years though this leg pain has been has been present recently. 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 He believes the clot was in his abdominal area. He presently denies any bowel or bladder issues with that he rates his pain at a 10 and gets worse when he tries to stand or walk it does get relief with sitting and has had no previous back surgery Current Medication - Atorvastatin Calcium 80 MG [...] allergic reaction. Physical Findings - Vitals taken 03/21/2023 09:05 am mg Height 65 in Weight 150 lbs Body Mass Index 25 kg/m2 Body Surface Area 1.8 m2 Standard Measurements: - Patient was overweight. He is pleasant alert and x3 he is unable to bend over and touch his toes he has 5 out of 5 EHL gastroc quadricep tibialis anterior strength bilaterally 1+ Achilles and patellar reflexes bilaterally 2+ posterior tibial pulses on the right Tests 2 views of the lumbar spine from January 2023 shows a degenerative changes with his back with an IVC filter also seen Assessment Low back pain possible spinal stenosis Previous Tests Imaging: X-Ray: An X-ray was performed. MRI Scan: An MRI was performed. Available previous imaging studies were reviewed Available previous history reviewed Counseling/Education - Lose weight Plan StartCited - Other Radiology/CT/Myelogram: Lumbar EndCited Fall Risk Assessment: This patient has [...] Joni Hollis PA-C. Patient will follow up with myself and Dr. Dickerson after we get a CT myelogram of the lumbar spine I would think the filter possibly could interfere with the MRI pictures with him. He will need to be off the Plavix prior to doing the CT myelogram we will need to get clearance from his general maintenance helper go off the Plavix. Notes This dictation was done with voice recognition software and may contain errors and omissions. Practice Management Use of tobacco assessment performed and patient screened for future fall risk documentation of any fall with injury in past year. Care Team - Imtiaz Caraballo MD
--- OUTSIDE RECORDS SUMMARY | 2025-11-12 07:56 | XMS_ITS | Encounter Summary ---
Author Organization [facility] Address [address] [place] [address] Care Team Providers Care Combine Inspector Name Role Phone Magalis Ruiz Unavailable Unavailable Kayleigh Del Cid MD Primary Care Provider [phone] Imtiaz Caraballo MD Unavailable Unavailab Scottie Davenport MD Unavailable Gina Quick APRN Unavailable [phone] Encounter Details Date Type Department Care Team [...] Description 11/16/2025 9:30 AM EST Office Visit [address] [address] Scottie Solo MD [address] [place] [address] [address] [place] [address] 11/16/2025 10:30 AM EST Office Visit [address] [address] Kayleigh Del Cid MD [address] [place] [address] [address] [place] [address] 01/11/2026 8:15 AM EST Office Visit [facility] [address] [place] [address] Dirk Hoffman, OD [address] [place] [address] 02/20/2026 10:10 AM EDT Office Visit [facility] [address] [place] [phone] Gina Quick M, MANUSCRIPT READER [address] [place] [address] 03/28/2026 1:40 PM EDT Office Visit [facility] [address] [place] [address] Jose Doty MD [address] [place] [address] documented as of this encounter [...] documented as of this encounter Care Teams Combine Inspector Relationship Specialty Start Date End Date Kayleigh Del Cid MD [address] [facility] [address] [place] [phone] PCP - General Internal Medicine 04/02/23 Magalis Ruiz Partner Marketing Manager Parking Lot Spotter 07/25/22 09/28/25 Imtiaz Caraballo MD [address] [facility] [address] [place] [address] Family Medicine 04/02/23 Scottie Solo MD [address] [facility] [address] [place] [phone] Consulting Physician Infectious Diseases 01/09/24 Gina Quick APRN [address] [place] [address] Nurse Practitioner Urology 08/23/25 documented as of this encounter
--- OUTSIDE RECORDS SUMMARY | 2025-11-12 07:57 | XMS_ITS | Encounter Summary ---
Author Organization [facility] Address [address] [place] [address] Care Team Providers Care Digital Analyst Name Role Phone Magalis Ruiz Unavailable Unavailable Kayleigh Del Cid MD Primary Care Provider [phone] Imtiaz Caraballo MD Unavailable Unavailab Scottie Davenport MD Unavailable Gina Quick LIGHTING FIXTURE INSTALLER Unavailable [phone] Violet Bryant Unavailable Unavailable Reason for Visit * Reason Comments Med Refill Encounter Details Date Type Department Care Team (Late st Contact Info) Description 05/26/2023 Refill [facility] [address] [place] [address] Scottie Solo MD [address] [facility] [address] [place] [address] Stage 3 chronic kidney disease, unspecified whether [...] Description 11/16/2025 9:30 AM EST Office Visit [address] [address] [place] [address] [place] [address] [address] [place] [address] 11/16/2025 10:30 AM EST Office Visit [address] [address] Kayleigh Del Cid MD [facility] [address] [place] [address] 01/11/2026 8:15 AM EST Office Visit [facility] [address] [place] [address] Dirk [place], OD [address] [place] [address] 02/20/2026 10:10 AM EDT Office Visit [facility] [address] [place] [address] Gina Quick, LIGHTING FIXTURE INSTALLER [address] [place] [address] 03/28/2026 1:40 PM EDT Office Visit [facility] [address] [place] [address] Jose Doty MD [address] [place] [address] documented as of this encounter Goals Goal [...] documented as of this encounter Care Teams Digital Analyst Relationship Specialty Start Date End Date Kayleigh Del Cid MD [address] [place] [address] PCP - General Internal Medicine 04/02/23 Magalis Ruiz Excel Vba Developer Trans Router 07/25/22 09/28/25 Imtiaz Caraballo MD [address] [place] [address] Family Medicine 04/02/23 Scottie Solo MD [address] [place] [address] Consulting Physician Infectious Diseases 01/09/24 Gina Quick, TAQUERIA [address] [facility] [place] [address] Nurse Practitioner Urology 08/23/25 Violet Bryant Excel Vba Developer Trans Router 09/28/25 documented as of this encounter
--- NOTE | 2025-11-12 08:00 | ECG_ITS ---
APPROVED REPORT Exam: Resting ECG HR:63 bpm ECG Measurements Heart Rate 63 AXES QRSd 118 QRS 65 QT 443 T 69 QTc 450 Conclusion SUPRAVENTRICULAR RHYTHM INCOMPLETE RIGHT BUNDLE BRANCH BLOCK [90+ ms QRS DURATION, TERMINAL R IN V1/V2, 40+ ms S IN I/aVL/V4/V5/V6] MODERATE ST DEPRESSION [0.05+ mV ST DEPRESSION] ABNORMAL ECG UNCONFIRMED REPORT Electronically signed by : Jesse Donovan, 11/12/2025 15:56:14
[2025-11-12 08:36] LABS: Hematocrit 28.5 % (42.0-52.0); Hemoglobin 9.8 g/dL (14.1-18.0); Immature Granulocytes % 0.3 %; Mean Corpuscular HGB Conc 34.4 g/dL (31.8-35.4); Mean Corpuscular Hemoglobin 32.3 pg (27.0-31.2); Mean Corpuscular Volume 94.1 fl (80-94); Nucleated Red Blood Cells % 0 %; Platelet Count 117 K/mm3 (142-424); Red Blood Count 3.03 M/mm3 (4.60-6.20); Red Cell Distribution Width-SD 41.6 fL; White Blood Count 7.1 K/mm3 (4.8-10.8)
[2025-11-12 08:38] LABS: Lactate Venous 1.6 mmol/L (0.4-2.0); VBG HCO3 22.9 mmol/L (23-30); VBG PCO2 40.9 mmol/L (35-51); VBG PH 7.37 mmol/L (7.31-7.41); VBG PO2 54.7 mmol/L (28-40)
[2025-11-12 08:43] LABS: Albumin Level 4.2 g/dl (3.5-5.0); Chloride 105 mmol/L (98-107); Potassium 4.1 mmoL/L (3.5-5.1); Sodium 140 mmol/L (136-145)
[2025-11-12 08:45] LABS: Blood Urea Nitrogen 21 mg/dl (9-20); Creatinine Clearance Estimated 32 mL/min (50-200); Creatinine,Serum 1.90 mg/dl (0.66-1.25); Estimated Glomerular Filt Rate 35 ml/min (>60); GFR (African American) 42 ML/MIN (>60)
[2025-11-12 08:46] LABS: Alanine Aminotransferase 20 U/L (12-78); Albumin/Globulin Ratio 1.4 (1.1-1.8); Alkaline Phosphatase 86 U/L (38-126); Anion Gap 14.1 mEq/L (5-15); Aspartate Amino Transferase 29 U/L (17-59); Bilirubin,Total 0.3 mg/dl (0.2-1.3); Calcium 8.6 mg/dl (8.4-10.2); Carbon Dioxide 25 mmol/L (22.0-30.0); Globulin 3.1 g/dL (1.3-3.2); Glucose 141 mg/dl (74-100); Total Protein,Serum 7.3 g/dl (6.3-8.2)
[2025-11-12 09:10] LABS: Acetaminophen < 10 ug/ml (10-30); Salicylate < 1.0 mg/dL (2.0-20.0)
--- NOTE | 2025-11-12 09:11 | XR_ITS ---
PROCEDURE INFORMATION: Exam: XR Chest Exam date and time: 11/12/2025 9:34 AM Age: 75 years old Clinical indication: Dyspnea TECHNIQUE: Imaging protocol: Radiologic exam of the chest. Views: 1 view. COMPARISON: CR XR CHEST PORTABLE 11/09/2025 1:59 PM FINDINGS: Lungs: Unremarkable. No consolidation. Pleural spaces: Unremarkable. No gross pleural effusion. No pneumothorax. Heart/Mediastinum: Unremarkable. No cardiomegaly. Bones/joints: Unremarkable. IMPRESSION: No acute findings.
--- NOTE | 2025-11-12 09:11 | CT_ITS ---
PROCEDURE INFORMATION: Exam: CT Head Without Contrast Exam date and time: 11/12/2025 9:30 AM Age: 75 years old Clinical indication: Altered mental status/memory loss and weakness, extremity; Additional info: AMS TECHNIQUE: Imaging protocol: Computed tomography of the head without contrast. Radiation optimization: All CT scans at this facility use at least one of these dose optimization techniques: automated exposure control; mA and/or kV adjustment per patient size (includes targeted exams where dose is matched to clinical indication); or iterative reconstruction. COMPARISON: CT VENOGRAM HEAD 11/09/2025 3:44 PM FINDINGS: Brain: Cerebellar tonsils are in normal anatomic position. There is no intracranial bleed. There is stable mild diffuse cerebral atrophy. There are stable mild periventricular white matter small vessel ischemic changes. No midline shift. Cerebral ventricles: No ventriculomegaly. Pituitary gland and sella: There is an empty sella. Paranasal sinuses: Paranasal sinuses are unremarkable. Mastoid air cells: Mastoid air cells are unremarkable. Orbital cavities: Orbits are unremarkable. Bones: The visible skeletal structures are unremarkable. Soft tissues: The soft tissues are unremarkable. Vasculature: Unremarkable. IMPRESSION: 1. No acute intracranial pathology. 2. Stable senescent findings.
--- NOTE | 2025-11-12 09:15 | HMH.EDGENADL ---
Discharge Plan Disposition Patient Disposition: Xfer Other Prescriptions Prescriptions: No Action atorvastatin 80 mg tablet 80 mg PO DAILY clopidogrel 75 mg tablet 75 mg PO DAILY pantoprazole 20 mg tablet,delayed release (DR/EC) 20 mg PO DAILY Repatha SureClick 140 mg/mL pen injector 140 mg SQ Q2W sildenafil 100 mg tablet See Rx Instructions PO DAILY PRN Rx Instructions: Take 1/2 tab prior to sex famotidine 20 mg tablet 20 mg PO BID hydrocodone-acetaminophen 7.5-325 mg tablet 1 tab PO BID bupropion HCl 300 mg tablet extended release 24 hr 300 mg PO DAILY nortriptyline 50 mg capsule 50 mg PO DAILY diclofenac sodium 1 % gel 4 g topical BID Qty: 100 3RF Rx Instructions: apply to lower back tamsulosin 0.4 MG capsule 0.4 mg PO HS lamivudine 150 MG tablet 150 mg PO DAILY abacavir 300 MG tablet 600 mg PO DAILY escitalopram oxalate 20 MG tablet 20 mg PO DAILY [id number] 1 EACH tablet 1 each PO DAILY dolutegravir 50 MG tablet 50 mg PO DAILY metoprolol succinate 25 MG tablet extended release 24 hr 25 mg PO DAILY Qty: 30 0RF furosemide [Lasix] 20 mg tablet 20 mg PO DAILY 7 Days Qty: 7 0RF tamsulosin 0.4 mg capsule 0.4 mg PO DAILY 30 Days Qty: 30 0RF cefadroxil 500 mg capsule 500 mg PO BID Qty: 10 0RF thiamine HCl (vitamin B1) 100 mg capsule 100 mg PO TID Qty: 90 0RF mecobalamin (vitamin B12) [B12 Active] 1,000 mcg tablet,chewable 1,000 mcg PO DAILY Qty: 30 0RF Referrals Follow up/Referrals: Nissa Del Cid MD [Primary Care Provider, Internal Medicine] - See instructions Clinical Impressions Clinical Impression: Acute encephalopathy, HIV (human immunodeficiency virus infection) Stand Alone Forms Stand Alone Forms: Transfer Record - ED Instructions Patient Instructions: Subjective Opioid Withdrawal Scale (SOWS) Print Language Print Language: Georgian Discharge ED Provider: Zane Donovan General Adult HPI General Chief complaint: Overdose Stated complaint: possible overdose Time Seen by Provider: 11/12/25 08:55 Mode of Arrival: EMS Source of Information: Patient and EMS Description of Symptoms (Recalled from ER Triage Doc. by RN): PATIENT PRESENTS TO ED FOR UNRESPONSIVE EPISODE FROM HOME WITH [facility]. PT WAS UNRESPONSIVE FOR HOUSEMATE AND LAST SEEN AWAKE AT 0530 THIS AM WHEN HE ASKED HIS HOUSEMATE TO TAKE HIM TO THE HOSPITAL. ON EMS ARRIVAL, PT WAS BREATHING BUT NOT RESPONSIVE. RECEIVED TOTAL OF 4 MG IV MARCAN AND BECAME RESPONSIVE. ALSO GOT 500 ML SALINE. History of Present Illness HPI narrative: Patient is a 75-year-old male brought in by EMS today after being found unresponsive at home. According to EMS a housemate had last seen him awake at 530 this morning. Patient was minimally responsive and was given Narcan 4 mg IV with significant improvement in his symptoms. Patient admits to taking [place] 7.5 however states that he takes this less than as prescribed not more. He denies any IV drug use. Patient also tells me that he believes that he was court ordered today to come to the hospital and he believes that he drove here. Denies any other symptoms but does state that he fell 3 days ago. He is acutely encephalopathic and history is limited at the moment. No one at the bedside during my evaluation. Related Data Home Medications ?Medication ?Instructions ?Recorded ?Confirmed abacavir 300 mg tablet 600 mg PO DAILY HIV 10/19/19 06/28/25 dolutegravir 50 mg tablet 50 mg PO DAILY HIV 10/19/19 06/28/25 escitalopram oxalate 20 mg tablet 20 mg PO DAILY Depression 10/19/19 06/28/25 lamivudine 150 mg tablet 150 mg PO DAILY HIV 10/19/19 06/28/25 [id number] 300 mcg-K 60 1 each PO DAILY Diet supplement 10/19/19 06/28/25 mcg-lycop 600 mcg-lutein 300 mcg tablet tamsulosin 0.4 mg capsule 0.4 mg PO HS prostate 10/19/19 06/28/25 atorvastatin 80 mg tablet 80 mg PO DAILY 02/11/23 06/28/25 clopidogrel 75 mg tablet 75 mg PO DAILY 02/11/23 06/28/25 evolocumab 140 mg/mL subcutaneous 140 mg SQ Q2W 02/11/23 06/28/25 pen injector (Tra Nixon) pantoprazole 20 mg tablet,delayed 20 mg PO DAILY 02/11/23 06/28/25 release sildenafil 100 mg tablet See Rx Instructions PO DAILY PRN 02/11/23 06/28/25 bupropion HCl 300 mg 24 hr tablet, 300 mg PO DAILY Depression 04/15/23 06/28/25 extended release nortriptyline 50 mg capsule 50 mg PO DAILY 04/15/23 06/28/25 famotidine 20 mg tablet 20 mg PO BID 06/28/25 06/28/25 hydrocodone 7.5 mg-acetaminophen 1 tab PO BID 06/28/25 06/28/25 325 mg tablet Previous Rx's ?Medication ?Instructions ?Recorded metoprolol succinate 25 mg 25 mg PO DAILY #30 tabs 10/22/19 tablet,extended release 24 hr diclofenac sodium 1 % topical gel 4 g topical BID #100 grams 02/12/23 furosemide 20 mg tablet (Lasix) 20 mg PO DAILY 1 week #7 tabs 12/15/24 cefadroxil 500 mg capsule 500 mg PO BID #10 caps 07/06/25 mecobalamin (vitamin B12) 1,000 1,000 mcg PO DAILY #30 tabs 07/06/25 mcg chewable tablet (B12 Active) thiamine HCl (vitamin B1) 100 mg 100 mg PO TID #90 caps 07/06/25 capsule tamsulosin 0.4 mg capsule 0.4 mg PO DAILY 30 days #30 caps 07/12/25 Allergies Allergy/AdvReac Type Severity Reaction Status Date / Time morphine Allergy Verified 06/28/25 14:20 [facility] Disclaimer: The information contained in this section may have been updated after the patient was seen, as this information can be updated by other users. Medical History Coronary artery disease Presence of IVC filter History of deep venous thrombosis Abnormal cardiovascular stress test Angina pectoris GERD (gastroesophageal reflux disease) Syncope Chest pain Stage 3 chronic kidney disease Hyperlipidemia Hypertension HIV disease Heat exposure MARGARET (acute kidney injury) Surgical History Stented coronary artery Family History Mother Stroke Social History Smoking Status: Never smoker alcohol intake: former substance use type: marijuana current occupational status: retired Travel in the last 8 weeks?: None household members: spouse and children housing: house caffeine: Yes Have you lived/traveled outside [place] in past 30 days?: No Contact w/someone who lives/traveled outside US past 30 days?: No Exposure to someone with infectious disease in past 14 days?: No Do you have a fever (greater than 100.4 F or 38 C)?: No Have you tested positive for COVID-19?: No Exposed to someone with COVID-19 in past 14 days?: No Do you have a sore throat?: No Do you have a cough?: No Do you have any weakness?: No Do you have any diarrhea?: No Are you experiencing any unusual bleeding?: No Do you have any muscle aches/pain?: No Do you have any abdominal pain?: No Are you experiencing loss of taste or smell?: No Other Medical History Have you received the Flu Vaccine for this season: No Have you received the Pneumonia Vaccine: Yes ROS Obtained: Yes All systems reviewed & no additional complaints except as documented Physical Exam General General appearance: alert and in no apparent distress Head Head exam: atraumatic Chest Chest inspection: Present normal inspection and symmetric chest wall rise Respiratory Respiratory exam: Present normal lung sounds bilaterally; Absent respiratory distress Cardiovascular Cardiovascular exam: Present regular rate and normal rhythm Abdominal Exam Abdominal exam: Present soft and distention Neurological Exam Neurological exam: Present alert, oriented X3 (He is oriented x 3 however as stated above he is making nonsensical statements such as telling me that he drove here and that he was court ordered to come to the hospital today) and other (Nonfocal) Medical Decision Making Medical Records Screening: Per USPSTF and CDC recommendations, given the prevalence of disease in our region, it is our hospital?s policy to screen for HIV and viral Hepatitis for all patients aged 18 and over and those with ongoing risk factors. [place] Inquiry Pt receiving controlled substance: No Vital Signs: 11/12/25 08:00 11/12/25 08:00 11/12/25 08:30 Temperature 98.1 F 98.1 F Temperature Source Oral Pulse Rate 65 62 Pulse Rate [Right] 65 Respiratory Rate 16 16 16 Blood Pressure 173/91 H 188/79 H Blood Pressure [Right Arm] 173/91 H Blood Pressure Mean 138 Blood Pressure Mean [Right Arm] 118 02 Sat by Pulse Oximetry 97 97 99 11/12/25 09:00 11/12/25 10:01 11/12/25 10:31 Temperature Temperature Source Pulse Rate 61 61 62 Pulse Rate [Right] Respiratory Rate 16 18 18 Blood Pressure 188/79 H 112/77 197/86 H Blood Pressure [Right Arm] Blood Pressure Mean 147 95 115 Blood Pressure Mean [Right Arm] 02 Sat by Pulse Oximetry 99 100 99 11/12/25 11:21 Temperature Temperature Source Pulse Rate 69 Pulse Rate [Right] Respiratory Rate 18 Blood Pressure 143/74 H Blood Pressure [Right Arm] Blood Pressure Mean 99 Blood Pressure Mean [Right Arm] 02 Sat by Pulse Oximetry 97 Lab Data Lab results reviewed: Yes I reviewed the patient's lab results. Lab Results 11/12/25 08:00: WBC 7.1, RBC 3.03 L, Hgb 9.8 L, Hct 28.5 L, MCV 94.1 H, MCH 32.3 H, MCHC 34.4, RDW 12.1, Plt Count 117 L, MPV 10.6 H, Neut % (Auto) 75.9, Lymph % (Auto) 14.8, Gray % (Auto) 6.0, Eos % (Auto) 2.9, Baso % (Auto) 0.1, Neut # (Auto) 5.4, Lymph # (Auto) 1.1, Gray # (Auto) 0.4, Eos # (Auto) 0.2, Baso # (Auto) 0.0, Sodium 140, Potassium 4.1, Chloride 105, Carbon Dioxide 25, Anion Gap 14.1, BUN 21 H, Creatinine 1.90 H, Estimated Creat Clear 32, Estimated GFR 35 L, Est GFR ( Amer) 42 L, Glucose 141 H, Calcium 8.6, Total Bilirubin 0.3, AST 29, ALT 20, Alkaline Phosphatase 86, Lactate Dehydrogenase 203 L, Total Protein 7.3, Albumin 4.2, Globulin 3.1, Albumin/Globulin Ratio 1.4, Salicylates < 1.0 L, Acetaminophen < 10 L, Plasma/Serum Alcohol < 10 11/12/25 08:26: VBG pH 7.37, VBG pCO2 40.9, VBG pO2 54.7 H, VBG HCO3 22.9 L, VBG Total CO2 24.2, VBG O2 Saturation 86.8 H, VBG Base Excess -2.4, VBG Lactic Acid 1.6 11/12/25 11:21: Urine Color Yellow, Urine Appearance Clear, Urine pH 7.5, Ur Specific [place] 1.015, Urine Protein Negative, Urine Glucose (UA) Negative, Urine Ketones Negative, Urine Blood Negative, Urine Nitrate Negative, Urine Bilirubin Negative, Urine Urobilinogen 0.2, Ur Leukocyte Esterase Negative, Urine RBC None, Urine WBC Occasional, Ur Squamous Epith Cells Occasional, Urine Bacteria None, Urine Opiates Screen Negative, Urine Methadone Screen Negative, Ur Barbituates Screen Positive H, Ur Phencyclidine Scrn Negative, Ur Amphetamines Screen Negative, U Benzodiazepines Scrn Negative, Urine Cocaine Screen Negative, U Marijuana (THC) Screen Negative 11/12/25 08:00 11/12/25 08:00 Orders (Tests/Meds): ORDERS Category Date Time Status CT head/brain wo con Stat Cat Scan 11/12/25 09:11 Completed CXR --portable [XR chest portable] Stat Exams 11/12/25 09:11 Completed Acetaminophen Stat Lab 11/12/25 08:00 Completed Complete Blood Count Auto Diff Stat Lab 11/12/25 08:00 Completed Comprehensive Metabolic Panel Stat Lab 11/12/25 08:00 Completed Drug Screen,Urine Stat Lab 11/12/25 11:21 Completed Ethyl Alcohol Stat Lab 11/12/25 08:00 Completed HIV-1 Quant. RNA PCR Routine Lab 11/12/25 11:34 Received LDH [Lactate Dehydrogenase] Stat Lab 11/12/25 08:00 Completed Salicylate Stat Lab 11/12/25 08:00 Completed Urinalysis and Microscopic Stat Lab 11/12/25 11:21 Completed Venous Blood Gas Stat RT 11/12/25 08:26 Completed Medical Decision Narrative: Patient with above history and physical he is actually been here 2 times over the last week with similar abnormalities with some hallucinations and changes in mental status both times he functionally left AMA as he was encouraged to come in the hospital with his frequent falls and changes in mental status and hallucinations. His is not yet at the bedside I will discuss with her when she arrives. Patient has a history of reactive HIV testing unclear as to what his last CD4 count or viral load was. It is possible that he has [employer] infections associated with this. Will look into this further when his arrives. I also am not sure if he is taking antiretroviral therapy. Workup is broad for his altered mental status he is definitely altered out of proportion to what we normally see with just an opiate overdose which was certainly contributory in the acute setting but that was fixed with the Narcan. Patient remains encephalopathic out of proportion to the opiate overdose. Reassessment 12:42 PM patient remains encephalopathic and very confused states now that she is at the bedside that this has been going on for several weeks. Additionally patient's states that he had a generalized tonic-clonic seizure from her perspective earlier today is never had seizures before. This is unverified however. She also claims that he has not been taking his Lortab for the last month but he states that he has. Unclear as to whether or not he is been taking his antiviral medications. I spoke with our hospital medicine doctor given my concern for possible [employer] infection we talked to [facility]. The remainder of his workup here was negative including a CT scan which I personally interpreted and chest x-rays are personally interpreted shows no acute abnormalities. No other definitive signs of sepsis. Patient is mildly thrombocytopenic LDH is depressed had a positive barbiturate screen which is nonspecific and unclear as to where that came from. It is possible he has been ingesting substances that could be causing his altered mental status as well. After talking Dr. Duong in [facility] we found out that the patient had a recent RPR that was positive as well as a positive follow-up syphilis titer. Is possible the patient has neurosyphilis or some other AIDS defining illness with a [employer] infection or AIDS/HIV encephalitis. Patient will need further infectious workup and altered mental status workup. This was informed to the patient's who agreed to this plan. Critical Care Critical Care Time Critical Care Time: Yes Attestation: On 11/12/25, the high probability of a clinically significant, sudden or life threatening deterioration of the following system(s) required my full and direct attention, intervention and personal management. The time I documented below is in addition to time spent performing reported procedures but includes the following listed in this critical care notation. Total Time Total Critical Care Time: 35
--- NOTE | 2025-11-12 11:23 | PC.NURSE ---
assisted pt to use the urinal, no needs at this time
[2025-11-12 11:26] LABS: Microscopic, Urine URINE MICROSCOPIC (MICROSCOPIC)
[2025-11-12 11:36] LABS: Bilirubin,Urine Negative (Negative); Color,Urine YELLOW (Yellow); Glucose,Urine (UA) Negative (Negative); Ketones,Urine Negative (Negative); Leukocyte Esterase,Urine Negative (Negative); PH,Urine 7.5 (5.0-8.5); Protein,Urine Negative (Negative); Specific Gravity, Urine 1.015 (1.005-1.030); Urobilinogen,Urine 0.2 EU/dl (0.2)
[2025-11-12 11:46] LABS: Squamous Epithelial Cell,Urine Occasional #/hpf (0-5); WBC,Urine Occasional #/hpf (0-3)
[2025-11-12 11:51] LABS: Barbiturates Screen,Urine Positive ng/ml (<200); Benzodiazepines Screen,Urine Negative ng/ml (<200)
[2025-11-12 11:52] LABS: Amphetamine/Metha Screen,Urine Negative ng/ml (<1000)
[2025-11-12 11:54] LABS: Methadone Screen,Urine Negative ng/ml (<300); Opiate Screen,Urine Negative ng/ml (<300)
[2025-11-12 11:55] LABS: Phencyclidine Screen,Urine Negative ng/ml (<25)
--- NOTE | 2025-11-12 12:00 | PC.NURSE ---
assisted pt with using urinal
--- NOTE | 2025-11-12 12:31 | PC.NURSE ---
Called [facility], spoke with transfer center, will call back
--- NOTE | 2025-11-12 12:34 | PC.NURSE ---
Dr. Donovan speaking with [facility]
--- NOTE | 2025-11-12 12:57 | PC.NURSE ---
called [facility] for transfer and spoke with Federico
[2025-11-16 03:41] LABS: HIV 1 RNA, Real time PCR <20 copies/mL (.)
[2025-11-17 10:40] LABS: PDF: SCANNED IMAGE
== END 2025-11-12 15:25 | disposition other institution (70) ==
PROVIDERS: Emergency Provider Student in an Organized Health Care Education/Training Program; PCP Internal Medicine
DX: G93.49 Other encephalopathy (principal); B20 Human immunodeficiency virus [HIV] disease
CPT/HCPCS: 70450; 71045; 80053; 80307; 80320; 80329; 81001; 82803; 83615; 85025; 87536; 93005; 99285